=== PATIENT | male | born 1945 | race Caucasian/White ===

== ENCOUNTER 2016-07-29 14:02 | Emergency (ER) | payer MEDICARE, MEDICAID ==
[~2016-07-29] VITALS: Ht 175.3 cm; Wt 81.5 kg
[~2016-07-29 14:02] MED LIST: ALBU2.5V9 IH; AMOX1TAB10 PO; AZIT250T6 PO; DEXT15CA PO
[2016-07-29 14:06] VITALS: Ht 175.3 cm; Wt 81.5 kg
[2016-07-29] MEDS ORDERED: ACETAMINOPHEN 325 MG TAB PO ONE (15:00)
--- NOTE | 2016-07-29 15:57 | RADRPT ---
PROCEDURE: XR Knee. CLINICAL INDICATION: Right knee pain TECHNIQUE: 3 images of the right knee are available for review. COMPARISON: None available FINDINGS: There is tricompartmental osteoarthrosis, moderate to severe in the medial femorotibial compartment mild to moderate in the lateral and patellofemoral compartments with chondrocalcinosis. There are c hronic-appearing ossicles near the medial collateral ligament suggesting remote trauma. There is al so a moderate sized knee joint effusion. There is no definite radiographic evidence of acute osseou s abnormality. IMPRESSION: 1. No definite radiographic evidence of acute osseous abnormality. 2. Tricompartmental osteoarthrosis, moderate to severe and predominant within the medial femorotibia l compartment where there is some chronic bone remodelling. 3. Moderate sized knee joint effusion and chondrocalcinosis. RPTAT: UU .Jitendra Flores MD, Date Time Electronically viewed and signed by .Jitendra Flores MD, on 07/29/2016 15:56 .K/
--- NOTE | 2016-07-29 15:57 | RADRPT ---
PROCEDURE: XR Ankle. CLINICAL INDICATION: Right ankle pain TECHNIQUE: 3 views of the right ankle were performed. COMPARISON: None. FINDINGS: There is an acute nondisplaced obliquely oriented distal fibular fracture just above the level of th e mortise. There is moderate lateral soft tissue swelling. No definite medial malleolar or posterior malleolar fracture is identified. IMPRESSION: 1. Acute essentially nondisplaced obliquely oriented distal fibular fracture as above. 2. Moderate lateral soft tissue swelling. RPTAT: UU .Jitendra Flores MD, MD Date Time Electronically viewed and signed by .Jitendra Flores MD, on 07/29/2016 15:57 .K/
--- NOTE | 2016-07-29 16:01 | RADRPT ---
PROCEDURE: XR Lumbar Spine. CLINICAL INDICATION: Low back pain TECHNIQUE: 3 images of the lumbar spine were obtained. COMPARISON: No prior studies are available for comparison. FINDINGS: There are 5 non rib-bearing lumbar type vertebral bodies. There is mild straightening of the usual lumbar lordosis. The bones are osteopenic. There is no definite acute fracture. There is mild to moderate multilevel degenerative disk disease throughout the lumbar spine, most pro minent at L5-S1 where it appears moderate moderate to severe. There are anterior osteophytes throug hout. There are vascular calcifications. Limited assessment of the sacroiliac joints is grossly unremarkable. IMPRESSION: 1. No definite radiographic evidence of acute osseous abnormality noting osteopenia. 2. Multilevel degenerative disk disease as above, most prominent at the L5-S1 level. 3. Vascular calcifications. RPTAT: UU .Jitendra Flores MD, Date Time Electronically viewed and signed by .Jitendra Flores MD, on 07/29/2016 16:00 .Sarah/
--- NOTE | 2016-07-29 16:02 | RADRPT ---
PROCEDURE: XR Chest. CLINICAL INDICATION: Chest pain TECHNIQUE: Single view of the chest COMPARISON: Chest radiograph February 11, 2016 FINDINGS: There is pulmonary vascular congestion, with slightly more prominent left perihilar and lower lung o pacity. Cardiac silhouette is mildly enlarged. There is no pleural effusion. There is no pneumothorax. There is no acute osseous abnormality. IMPRESSION: 1. Pulmonary vascular congestion with slightly more prominent left perihilar and lower lobe opacity that could reflect superimposed pneumonia / pneumonitis. 2. Mildly enlarged cardiac silhouette. RPTAT: UU .Jitendra Flores MD, MD Date Time Electronically viewed and signed by .Jitendra Flores MD, on 07/29/2016 16:02 .K/
[2016-07-29] MEDS ORDERED: LEVO500T72 PO (16:38)
[2016-07-29] MEDS ORDERED: IBUP400T22 PO (16:38)
[2016-07-29] MEDS ORDERED: BENA20TA65 PO (16:59)
[2016-07-29 17:03] VITALS: BP 158/86; PULSE 65; RESP 18
--- NOTE | 2016-07-29 17:06 | ERD ---
ER Documentation Chief Complaint Date/Time DATE: 07/29/16 TIME: 17:01 Chief Complaint rt knee , rt nakle , low back pain s/p trip and fall today HPI 71.-year-old male tripped and fell today. He has complaints of low back pain, right knee pain and right ankle pain. Is also had cough which is productive for last 2 weeks. He is prescribed cough medicine but still has productive cough but denies fevers or shortness of breath or chest pain. There is no history of head injury or neck pain or loss of consciousness or additional symptoms. ROS All systems reviewed and are negative except as per history of present illness. Medications Home Meds Active Scripts Benazepril Hcl* (Lotensin*) 20 Mg Tablet, 20 MG PO DAILY, #30 TAB Prov:LYNN VAIL MD 07/29/16 Ibuprofen* (Motrin*) 400 Mg Tab, 400 MG PO Q6, #16 TAB Prov:LYNN VAIL MD 07/29/16 Levofloxacin* (Levaquin*) 500 Mg Tablet, 500 MG PO DAILY for 7 Days, TAB Prov:LYNN VAIL MD 07/29/16 Albuterol Sulfate (Albuterol Sulfate) 2.5 Mg/0.5 Ml Vial.neb, 2.5 MG IH Q4H Y for SHORTNESS OF BREATH, #1 VIAL Prov:BRANDON MCDONOUGH 02/13/16 Dextromethorphan Hbr (Tussin Cough) 15 Mg Capsule, 15 MG PO Q6H Y for COUGH, # 30 CAP Prov:BRANDON MCDONOUGH 02/13/16 Azithromycin* (Azithromycin*) 250 Mg Tablet, 250 MG PO DAILY, #4 TAB Prov:BRANDON MCDONOUGH 02/13/16 Amoxicillin/Potassium Clav (Amox-Clav 875-125 mg Tablet) 875-125 mg Tab, 1 TAB PO BID for 8 Days, #16 TAB Prov:BRANDON MCDONOUGH 02/13/16 Allergies Allergies: Coded Allergies: No Known Allergy (Unverified , 02/11/16) PMhx/Soc History of Surgery: Yes (inguinal hernia repair) Anesthesia Reaction: No Hx Neurological Disorder: No Hx Respiratory Disorders: No Hx Cardiac Disorders: Yes (HTN ) Hx Psychiatric Problems: No Hx Miscellaneous Medical Probl: Yes (HTN, high cholesterol, arthritis) Hx Alcohol Use: Yes (1-2 beers daily ) Hx Substance Use: No Hx Tobacco Use: No Physical Exam Vitals Vital Signs Date Time Temp Pulse Resp B/P Pulse Ox O2 Delivery O2 Flow Rate FiO2 07/29/16 14:06 97.8 66 18 172/80 98 Physical Exam Const: [] Alert, [id number]. Head: Atraumatic Eyes: Normal Conjunctiva ENT: Normal External Ears, Nose and Mouth. Neck: Full range of motion..~ No meningismus. No JVD. Resp: Clear to auscultation bilaterally. Slight rhonchi without rales wheezing or retractions appreciated. Cardio: Regular rate and rhythm, no murmurs Abd: Soft, non tender, non distended. Normal bowel sounds Skin: No petechiae or rashes Back: No midline or flank tenderness. Tender L4-5 paraspinous with muscles without appreciable tenderness or deformities. Ext: No cyanosis, or edema. There is some mild tenderness in the right knee with no effusion, deformities. There is some generalized tenderness around the right ankle with out significant swelling and no deformities or restricted range of motion weakness. Neur: Awake and alert Psych: Normal Mood and Affect Results 24 hrs Current Medications Medications (Trade) Dose Ordered Sig/Dawna Route PRN Reason Start Time Stop Time Status Last Admin Dose Admin Acetaminophen (Tylenol Tab) 650 mg ONCE ONCE PO 07/29/16 15:00 07/29/16 15:01 DC 07/29/16 15:02 Procedures/MDM X-ray right ankle 3V Interpreted by me: Bones: Nondisplaced distal fibula fracture Joints: No dislocation. Impression-nondisplaced right distal fibular fracture X-ray right knee 3V Interpreted by me: Bones: [No fracture] Joints: [No dislocation] Foreign body: [None]. Impression-degenerative changes without fracture dislocation right knee X-ray LS-Spine 3V Interpreted by me: Bones: [No fracture] Joints: [No dislocation] Foreign body: [None]. Impression-degenerative changes without fracture dislocation of lumbar spine Chest X-ray 1V Interpreted by me: Soft Tissue: No acute abnormalities Bones: No acute abnormalities Mediastinum/Cardiac Silhouette/Lungs: [No acute abnormalities]. Slight pulmonary vascular congestion with possible left lower lobe infiltrate Patient presents status post mechanical fall with signs of a right ankle nondisplaced fracture of the distal fibula. He has lumbar strain and right knee sprain as well. He has a productive cough for last 2 weeks with signs of possible underlying pneumonia. Given the duration will be treated with Levaquin , and ibuprofen for pain. Patient was referred to orthopedics for further evaluation of his ankle fracture. Patient does have some vascular congestion but no other signs or symptoms to suggest CHF at this point no JVD or pedal edema. He will referred to us primary doctor for evaluation and treatment and will be given a prescription for Lotensin for elevated blood pressure here in the ED. Patient has been treated for hypertension in the past but apparently is having some insurance difficulties has not been taking it. He has unsure of his previous medications. Patient is advised to follow-up for new or worsening symptoms with primary doctor as directed. Patient shows no signs or symptoms suggestive deficits, head injury, sepsis, acute coronary syndrome, additional emergent conditions. Departure Diagnosis: Primary Impression: Hypertension Additional Impressions: Pneumonia Pneumonia type: due to unspecified organism Laterality: left Lung location : lower lobe of lung Qualified Code: J18.9 - Pneumonia of left lower lobe due to infectious organism Fall Encounter type: initial encounter Qualified Code: W19.XXXA - Fall, initial encounter Ankle fracture Encounter type: initial encounter Fracture type: closed Laterality: right Qualified Code: S82.891A - Ankle fracture, right, closed, initial encounter Condition: Stable Patient Instructions: High Blood Pressure (Hypertension), Fracture, Ankle ( General), Fall, Mechanical, Pneumonia (Adult) Referrals: PASCALE LEWIS MD [facility] Hours: Sat-Sat 9:00 AM - 5:00 PM Additional Instructions: cheque con jarrett doctor primario para presion. jennifer fractura en tobillo. va al ortho pedico para mas evaluacion. regresa para fiebre, mas simptomas. Va al jarrett doctor/ specialista para mas evaluacon en el proximo semana. posiblemente necesita autorizado de jarrett doctor primario para specialista. Regresa para fiebre , o mas o nueva simptomas. LYNN VAIL MD Jul 29, 2016 17:05
== END 2016-07-29 17:05 | disposition home or self-care (01) ==
LOC: FTE 14:02
DX: I10 Essential (primary) hypertension (principal); J18.9 Pneumonia, unspecified organism; S82.891A Other fracture of right lower leg, initial encounter for closed fracture; W01.0XXA Fall on same level from slipping, tripping and stumbling without subsequent striking against object, initial encounter; Y92.9 Unspecified place or not applicable
CPT/HCPCS: 71010; 72100; 73562

== ENCOUNTER 2016-08-11 07:16 | Emergency (ER) | payer MEDICARE, MEDICAID ==
[~2016-08-11] VITALS: Ht 175.3 cm; Wt 81.0 kg
[~2016-08-11 07:16] MED LIST changes: +BENA20TA65 PO; +IBUP400T22 PO; +LEVO500T72 PO
[2016-08-11 07:18] VITALS: Ht 175.3 cm; Wt 81.0 kg
[2016-08-11] MEDS ORDERED: IBUP800T25 PO (07:46)
[2016-08-11] MEDS ORDERED: SOD CHLORIDE 0.9% 1,000 ML IV STA (08:01)
[2016-08-11] MEDS ORDERED: CLINDAMYCIN 300 MG INJ IV ONE (08:30)
[2016-08-11] MEDS: CLINDAMYCIN 600 MG/D5W (PMX) 50 ML IVPB SCH ×2 (08:41→09:26)
[2016-08-11 08:53] LABS: ADD SCAN DIFF NO
[2016-08-11 09:09] LABS: ALBUMIN 3.6 g/dl (3.3-4.9); BASOPHILS % 0.1 % (0.0-2.0); HEMATOCRIT 42.2 % (42.0-52.0); HEMOGLOBIN 14.4 g/dl (14.0-18.0); LYMPHOCYTES # 0.7 10^3/ul (0.8-2.9); LYMPHOCYTES % 6.9 % (15.0-51.0); MEAN CORPUSCULAR HEMOGLOBIN 28.3 pg (29.0-33.0); MEAN CORPUSCULAR HGB CONC 34.1 g/dl (32.0-37.0); MEAN CORPUSCULAR VOLUME 83.1 fl (82.0-101.0); MEAN PLATELET VOLUME 10.7 fl (7.4-10.4); MONOCYTE # 0.5 10^3/ul (0.3-0.9); MONOCYTES % 5.1 % (0.0-11.0); NEUTROPHIL # 9.1 10^3/ul (1.6-7.5); NEUTROPHILS % 86.9 % (39.0-77.0); PLATELET COUNT 159 10^3/UL (140-415); RED BLOOD COUNT 5.08 10^6/ul (4.70-6.10); RED CELL DISTRIBUTION WIDTH 17.1 % (11.5-14.5); WHITE BLOOD COUNT 10.5 10^3/ul (4.8-10.8)
[2016-08-11 09:10] LABS: POTASSIUM 4.1 mmol/L (3.5-5.1)
[2016-08-11 09:12] LABS: ALBUMIN/GLOBULIN RATIO 1.02; BILIRUBIN,INDIRECT 0.2 mg/dl (0-1.1); BILIRUBIN,TOTAL 0.2 mg/dl (0.2-1.3); CREATININE 0.73 mg/dl (0.61-1.24); TOTAL PROTEIN 7.1 g/dl (6.1-8.1)
[2016-08-11] MEDS ORDERED: IOHEXOL 300MG/ML 150 ML BTL ONE (09:17)
[2016-08-11] MEDS ORDERED: SOD CHLORIDE 0.9% 100 ML ONE (09:18)
[2016-08-11 09:19] LABS: ADD UMIC NO; URINE BILIRUBIN (Dip) NEGATIVE (NEGATIVE); URINE BLOOD (Dip) NEGATIVE (NEGATIVE); URINE COLOR LT. YELLOW (YELLOW); URINE GLUCOSE (Dip) NEGATIVE (NEGATIVE); URINE KETONES (Dip) NEGATIVE (NEGATIVE); URINE LEUKOCYTE ESTERASE (Dip) NEGATIVE (NEGATIVE); URINE NITRITE (Dip) NEGATIVE (NEGATIVE); URINE TOTAL PROTEIN (Dip) NEGATIVE (NEGATIVE); URINE UROBILINOGEN (Dip) 0.2 E.U./dL (0.1-1.0)
--- NOTE | 2016-08-11 10:29 | RADRPT ---
PROCEDURE: XR Ankle. CLINICAL INDICATION: Right ankle pain TECHNIQUE: Three views of the right ankle are available for review. COMPARISON: 07/29/2016 FINDINGS: There is a nondisplaced oblique fracture through the distal fibula. The remainder of the osseous st ructures, articular spaces, and surrounding soft tissues of the right ankle are intact. No radiopaqu e foreign body is identified. IMPRESSION: 1. Nondisplaced oblique fracture through the distal fibula. 2. No new fracture or dislocation. RPTAT: EE .Tracy Marino MD, MD Date Time Electronically viewed and signed by .Tracy Marino MD, on 08/11/2016 10:29 .O/
--- NOTE | 2016-08-11 10:33 | RADRPT ---
PROCEDURE: Right foot series CLINICAL INDICATION: Pain TECHNIQUE: Three views. COMPARISON: None FINDINGS: No fractures are noted. The soft tissues are unremarkable. There is mild hallux valgus deformity.. Joint spaces are well maintained. No erosions are noted. Partially imaged distal fibular fracture is present. IMPRESSION: 1. No acute fracture or dislocation. 2. Mild hallux valgus deformity. RPTAT: EE .Tracy Marino MD, MD Date Time Electronically viewed and signed by .Tracy Marino MD, on 08/11/2016 10:32 .O/
--- NOTE | 2016-08-11 11:11 | RADRPT ---
PROCEDURE: CT scan of the face with contrast. CLINICAL INDICATION: swelling to left cheek. r/o abscess TECHNIQUE: CT scan of the face following intravenous administration of 80 ml Omnipaque-300 was pe rformed on a multidetector high-resolution CT scan. Standard CT scan of the face with contrast pro tocols were performed. The total exam CTDI equals 54 mGy and the total exam DLP equals 1218.44 mGy-cm. One or more of the following dose reduction techniques were used: - Automated exposure control. - Adjustment of the mA and/or kV according to patient size. Use of iterative reconstruction technique. COMPARISON: None FINDINGS: The left parotid and submandibular glands are diffusely enlarged with diffuse mild enhancement but n o focal lesion consistent with parotiditis and submandibularitis. There is mild edema surrounding the left submandibular gland and left parotid gland especially along the inferior aspect left paroti d gland as well as since extending into the subcutaneous region along the lateral posterior left low er face at the level of the left mandibular angle consistent with reactive inflammatory changes and cellulitis. A discrete abscess is not seen. No evidence of lymphadenopathy. The nasopharynx, oroph arynx and hypopharynx appear unremarkable. Those portions of the airway visualized are unremarkable . The right submandibular gland and parotid gland are unremarkable. There is no other soft tissue flu id collections or gas seen. Defect involving the medial left maxillary sinus wall consistent with a ntral window. There is chronic bilateral maxillary and ethmoid sinus disease. The frontal and ethm oid and sphenoid sinuses are unremarkable. There is no acute sinusitis. There are no facial fractu res. The globes are symmetrical without proptosis. No intra or extraconal fluid collections or mass es bilaterally. IMPRESSION: 1. Diffusely enlarged left parotid and submandibular glands with diffuse enhancement but no focal l esions consistent with parotiditis and submandibularitis. 2. Soft tissue edema adjacent to the left submandibular and parotid glands as described above consi stent with reactive inflammatory changes and cellulitis. 3. No evidence of a discrete abscess. 4. Left maxillary sinus antral window and chronic sinusitis involving the ethmoid and maxillary sin uses as above. No evidence of acute sinusitis. 5. Unremarkable orbits. RPTAT:AAJJ Kelly Lewis Physician Date Time Electronically viewed and signed by Kelly Lewis Physician on 08/11/2016 11:10 BM/
[2016-08-11] MEDS ORDERED: HYDR-906 PO (11:23)
[2016-08-11] MEDS ORDERED: AMOX1TAB10 PO (11:23)
[2016-08-11 11:46] VITALS: BP 195/84; PULSE 60; RESP 18; TEMP 98
--- NOTE | 2016-08-11 14:54 | ERD ---
DATE OF SERVICE: 08/11/2016 HISTORY OF PRESENT ILLNESS: The patient is a 71-year-old male coming in complaining of swelling to his left face x2 days. He says he has had tactile fevers, had a mild cough. Denies dental pain, we ars dentures. Denies medical problems. He is not taking antibiotics. He has no trouble swallowing or breathing. He is also complaining of right-sided ankle pain. He fell 8 days ago and is unsure if he has a fracture. He has pain with ambulation. No numbness or tingling. PAST MEDICAL HISTORY: Hypertension. ALLERGIES TO MEDICATIONS: DENIES. PAST SURGICAL HISTORY: Denies. SOCIAL HISTORY: Denies. REVIEW OF SYSTEMS: A 12-point review of systems was done. Refer to HPI for positives, all other sy stems negative. PHYSICAL EXAMINATION: VITAL SIGNS: Temperature is 99.6, pulse 95, blood pressure is 172/80, respiratory rate 18, O2 satur ation 96% on room air. Pain intensity is 6/10. GENERAL: The patient is well-appearing, well-nourished, no acute distress. HEENT: The patient has swelling noted to the left submandibular region. There is no compromise in the airway. No dental pain. Oropharynx clear. Uvula midline. No posterior oropharynx fullness. CHEST: Clear to auscultation bilaterally. There are no rales, wheezes or rhonchi. HEART: Regular rate and rhythm. No murmurs, clicks, rubs or gallops. No S3 or S4. EXTREMITIES: The patient has tenderness to palpation over the right lateral malleolus. No obvious deformities. Mild ecchymosis. No tenderness to palpation over the base of fifth metatarsal. The p atient has normal flexion and extension at the ankle. No syndesmotic pain. No pain to the right kn ee. Pulses are intact. Compartments are soft. The patient is neurovascularly intact. EMERGENCY ROOM COURSE: The patient had an x-ray done of the right ankle, 3-view x-ray shows a nondi splaced oblique fracture through the distal fibula. No new fracture or dislocation. The patient al so had a 3-view x-ray done of the right foot which showed no acute fracture or dislocation. Mild moss llux valgus deformity. The patient had blood work done in the ER. CBC was within normal limits. C MP was within normal limits. The patient's urine was negative. The patient had a facial CT which showed: 1. Diffusely enlarged left parotid and submandibular gland with diffuse enhancement but no focal le sions, consistent with parotiditis and submandibularitis. 2. Soft tissue edema adjacent to the left submandibular and parotid glands as described above, cons istent with reactive changes and cellulitis. 3. No evidence of discrete abscess. 4. Left maxillary sinus window, chronic sinusitis involving the ethmoid and maxillary sinuses , no evidence of acute sinusitis. 5. Unremarkable orbits. The patient was given a liter of normal saline and 600 mg of IV clindamycin in the ER. The patient also had a posterior ankle and sugar-tong splint done in the ER with crutches. DIAGNOSES: 1. Left facial cellulitis. 2. Right ankle fracture. MEDICAL DECISION MAKING: I have low suspicion for deep abscess formation or indication for surgical drainage at this time. The patient will be discharged with antibiotics and close followup. I have low suspicion for airway compromise. The patient does not have any signs of stridor or airway narr owing secondary to infection. I have low suspicion for compartment syndrome or neurovascular defici t secondary to fracture. The patient's exam is within normal limits. The patient will be recommend ed to nonweightbearing. DISCHARGE: The patient is discharged stable. The patient is given a prescription for Augmentin, ib uprofen and Leroy and told to follow up with ortho and primary within 1 to 2 days for close evaluati on. The patient was told if symptoms progress or worsen, to return to the ER. All other questions answered at the time of discharge. Discharge summary given at the time of departure. The patient u nderstood and complied with plan. Dictated By: SULY SALGUERO for CURTIS DUQUE/DONYA Conf#: [id number] DID#: [id number]
== END 2016-08-11 11:48 | disposition home or self-care (01) ==
LOC: FTE 07:16
DX: L03.211 Cellulitis of face (principal); S82.434A Nondisplaced oblique fracture of shaft of right fibula, initial encounter for closed fracture; I10 Essential (primary) hypertension; W18.39XA Other fall on same level, initial encounter; Y92.9 Unspecified place or not applicable
CPT/HCPCS: 29515; 36415; 70486; 73610; 73630; 80053; 81003; 83690; 85025; 96374; 99285; J7030; Q9967

== ENCOUNTER 2016-08-28 08:54 | Inpatient (IN) | payer MEDICARE, MEDICAID ==
[2016-08-28] VITALS (10 sets, daily range): BP systolic 137–199; BP diastolic 79–95; PULSE 103–130; RESP 19–24
[~2016-08-28] VITALS: Ht 162.6 cm; Wt 75.5 kg
[~2016-08-28 08:54] MED LIST changes: -ALBU2.5V9 IH; +HYDR-906 PO; +IBUP800T25 PO; +RTPRO5 IH
[2016-08-28] MEDS ORDERED: CEFEPIME 2GM/50 ML (PMX) 50 ML IVPB STA (09:08)
[2016-08-28] MEDS ORDERED: SODIUM CHLORIDE 0.9% 1L BAG IV* STA (09:08)
[2016-08-28] MEDS ORDERED: ALBUTEROL 0.083% (NEB) 2.5 MG/3 ML AMP HHN STA (09:08)
[2016-08-28] MEDS ORDERED: IPRATROPIUM (NEB) 0.5 MG/2.5 ML AMP HHN ONE (09:30)
[2016-08-28] MEDS ORDERED: VANCOMYCIN 1 GM (PMX) 250 ML IVPB ONE (09:30)
[2016-08-28] MEDS ORDERED: ACETAMINOPHEN 325 MG TAB PO PRN (09:30)
[2016-08-28] MEDS ORDERED: ONDANSETRON 4 MG INJ IV PRN (09:30)
[2016-08-28 09:49] LABS: ADD SCAN DIFF NO
[2016-08-28 09:56] LABS: BASOPHILS % 0.5 % (0.0-2.0); EOSINOPHILS # 0.1 10^3/ul (0.0-0.5); EOSINOPHILS % 1.3 % (0.0-7.0); HEMATOCRIT 45.8 % (42.0-52.0); HEMOGLOBIN 15.6 g/dl (14.0-18.0); LYMPHOCYTES % 16.6 % (15.0-51.0); MEAN CORPUSCULAR HEMOGLOBIN 28.3 pg (29.0-33.0); MEAN CORPUSCULAR HGB CONC 34.1 g/dl (32.0-37.0); MEAN PLATELET VOLUME 9.3 fl (7.4-10.4); MONOCYTE # 0.4 10^3/ul (0.3-0.9); MONOCYTES % 6.3 % (0.0-11.0); NEUTROPHIL # 4.5 10^3/ul (1.6-7.5); NEUTROPHILS % 74.8 % (39.0-77.0); PLATELET COUNT 192 10^3/UL (140-415); RED BLOOD COUNT 5.52 10^6/ul (4.70-6.10); RED CELL DISTRIBUTION WIDTH 16.5 % (11.5-14.5)
[2016-08-28 10:02] LABS: ALBUMIN 3.9 g/dl (3.3-4.9); CHLORIDE 95 mmol/L (97-110); SODIUM 133 mmol/L (135-144)
[2016-08-28 10:03] LABS: POTASSIUM 3.9 mmol/L (3.5-5.1)
[2016-08-28 10:05] LABS: ALANINE AMINOTRANSFERASE 97 IU/L (13-69); ALBUMIN/GLOBULIN RATIO 0.88; ALKALINE PHOSPHATASE 259 IU/L (42-121); ANION GAP 15 (8-16); ASPARTATE AMINO TRANSFERASE 85 IU/L (15-46); BILIRUBIN,INDIRECT 0.6 mg/dl (0-1.1); BILIRUBIN,TOTAL 0.6 mg/dl (0.2-1.3); BLOOD UREA NITROGEN 21 mg/dl (7-20); CARBON DIOXIDE 27 mmol/L (21-31); CREATININE 0.94 mg/dl (0.61-1.24); GLUCOSE 130 mg/dl (70-220); TOTAL PROTEIN 8.3 g/dl (6.1-8.1)
[2016-08-28 10:07] LABS: INR 1.03; PROTIME 13.5 Sec (12.2-14.2); PT RATIO 1.1
[2016-08-28 10:08] LABS: PARTIAL THROMBOPLASTIN TIME 36.7 Sec (25.0-35.0)
--- NOTE | 2016-08-28 10:15 | RADRPT ---
PROCEDURE: XR Chest AP portable CLINICAL INDICATION: Possible sepsis TECHNIQUE: An AP portable radiograph of the chest was submitted. COMPARISON: 07/29/2016 FINDINGS: Support Hardware: None Cardiovascular: The heart remains mildly enlarged and the pulmonary vasculature appears more congest ed. Lung Singletary: Worsening interstitial infiltrates are seen diffusely through the lung singletary bilateral ly. Pleural Spaces: No pneumothorax or pleural effusion is identified. Osseous Structures: Moderate degenerative spine changes are again noted. Soft Tissues: Elongated organized air distended small bowel is seen within the right upper quadrant of the abdomen. IMPRESSION: 1. Mild cardiomegaly with worsening CHF and pulmonary edema. 2. Possible bowel obstruction. Correlation with an abdominal film is recommended. 3. Moderate osteoarthritic change seen through the spine. Physician Rob Date Time Electronically viewed and signed by Physician Rob on 08/28/2016 10:14 /
[2016-08-28 10:18] LABS: TROPONIN-I < 0.010 ng/ml (0.00-0.12)
[2016-08-28 10:24] LABS: ADD UMIC YES; URINE BILIRUBIN (Dip) 1+ (NEGATIVE); URINE BLOOD (Dip) NEGATIVE (NEGATIVE); URINE COLOR ORANGE (YELLOW); URINE GLUCOSE (Dip) NEGATIVE (NEGATIVE); URINE KETONES (Dip) TRACE (NEGATIVE); URINE LEUKOCYTE ESTERASE (Dip) NEGATIVE (NEGATIVE); URINE NITRITE (Dip) NEGATIVE (NEGATIVE); URINE TOTAL PROTEIN (Dip) 1+ (NEGATIVE); URINE UROBILINOGEN (Dip) 1.0 E.U./dL (0.1-1.0)
--- NOTE | 2016-08-28 10:27 | ERA ---
ER Documentation Chief Complaint Date/Time DATE: 08/28/16 TIME: 10:24 Chief Complaint feels weak, cough, moss, poor apetite x 3 days HPI Patient is a 8-year-old male with diabetes and previous pneumonia presents saying "I feel bad". Patient has cough and shortness of breath. The patient has had decreased intake by mouth over the past few days. He feels weak. He said the symptoms have been there for the past 3 days. He said that "I think I have bronchitis". He does say that he had fever at home. Upon review of old medical records the patient has multiple visits to the ER for various complaints. His primary doctor is Dr. Austin. ROS All systems reviewed and are negative except as per history of present illness. Medications Home Meds Discontinued Scripts Hydrocodone/Acetaminophen ([place] 5-325 Tablet) 1 Each Tablet, 1 TAB PO Q6H Y for PAIN, #7 TAB Prov:LOVE JACK PA-C 08/11/16 Amoxicillin/Potassium Clav (Amox-Clav 875-125 mg Tablet) 875-125 mg Tab, 1 TAB PO BID for 7 Days, #14 TAB Prov:LOVE JACK PA-C 08/11/16 Ibuprofen* (Motrin*) 800 Mg Tab, 800 MG PO Q6, #30 TAB Prov:LOVE JACK PA-C 08/11/16 Benazepril Hcl* (Lotensin*) 20 Mg Tablet, 20 MG PO DAILY, #30 TAB Prov:LYNN VAIL MD 07/29/16 Ibuprofen* (Motrin*) 400 Mg Tab, 400 MG PO Q6, #16 TAB Prov:LYNN VAIL MD 07/29/16 Levofloxacin* (Levaquin*) 500 Mg Tablet, 500 MG PO DAILY for 7 Days, TAB Prov:LYNN VAIL MD 07/29/16 Albuterol Sulfate (Albuterol Sulfate) 2.5 Mg/0.5 Ml Vial.neb, 2.5 MG IH Q4H Y for SHORTNESS OF BREATH, #1 VIAL Prov:BRANDON MCDONOUGH 02/13/16 Dextromethorphan Hbr (Tussin Cough) 15 Mg Capsule, 15 MG PO Q6H Y for COUGH, # 30 CAP Prov:BRANDON MCDONOUGH. 02/13/16 Azithromycin* (Azithromycin*) 250 Mg Tablet, 250 MG PO DAILY, #4 TAB Prov:BRANDON MCDONOUGH. 02/13/16 Amoxicillin/Potassium Clav (Amox-Clav 875-125 mg Tablet) 875-125 mg Tab, 1 TAB PO BID for 8 Days, #16 TAB Prov:BRANDON MCDONOUGH. 02/13/16 Allergies Allergies: Coded Allergies: No Known Allergy (Unverified , 08/28/16) PMhx/Soc History of Surgery: Yes (inguinal hernia repair) Anesthesia Reaction: No Hx Neurological Disorder: No Hx Respiratory Disorders: No Hx Cardiac Disorders: Yes (HTN ) Hx Psychiatric Problems: No Hx Miscellaneous Medical Probl: Yes (HTN, high cholesterol, arthritis) Hx Alcohol Use: Yes (1-2 beers daily ) Hx Substance Use: No Hx Tobacco Use: No Smoking Status: Never smoker FmHx Family History: diabetes Physical Exam Vitals Vital Signs Date Time Temp Pulse Resp B/P Pulse Ox O2 Delivery O2 Flow Rate FiO2 08/28/16 09:36 102 20 95 Nasal Cannula 2.0 08/28/16 09:30 Nasal Cannula 2 08/28/16 08:59 98.1 114 24 137/76 87 Physical Exam Const: Mild distress Head: Atraumatic Eyes: Normal Conjunctiva ENT: Normal External Ears, Nose and Mouth. Neck: Full range of motion..~ No meningismus. Resp: Decreased breath sounds bilaterally with crackles at the bases Cardio: Tachycardic rate without murmur Abd: Soft, non tender, non distended. Normal bowel sounds Skin: No petechiae or rashes Back: No midline or flank tenderness Ext: No cyanosis, or edema Neur: Awake and alert Psych: Normal Mood and Affect Result Diagram: 08/28/1630 08/28/1630 Results 24 hrs Laboratory Tests Test 08/28/16 09:30 White Blood Count 6.010^3/ul Red Blood Count 5.5210^6/ul Hemoglobin 15.6g/dl Hematocrit 45.8% Mean Corpuscular Volume 83.0fl Mean Corpuscular Hemoglobin 28.3pg Mean Corpuscular Hemoglobin Concent 34.1g/dl Red Cell Distribution Width 16.5% Platelet Count 86971^3/UL Mean Platelet Volume 9.3fl Neutrophils % 74.8% Lymphocytes % 16.6% Monocytes % 6.3% Eosinophils % 1.3% Basophils % 0.5% Nucleated Red Blood Cells % 0.0/100WBC Neutrophils # 4.510^3/ul Lymphocytes # 1.010^3/ul Monocytes # 0.410^3/ul Eosinophils # 0.110^3/ul Basophils # 0.010^3/ul Nucleated Red Blood Cells # 0.010^3/ul Prothrombin Time 13.5Sec Prothrombin Time Ratio 1.1 INR International Normalized Ratio 1.03 Activated Partial Thromboplast Time 36.7Sec Sodium Level 133mmol/L Potassium Level 3.9mmol/L Chloride Level 95mmol/L Carbon Dioxide Level 27mmol/L Anion Gap 15 Blood Urea Nitrogen 21mg/dl Creatinine 0.94mg/dl Glucose Level 130mg/dl Lactic Acid Level 2.3mmol/L Calcium Level 9.0mg/dl Total Bilirubin 0.6mg/dl Direct Bilirubin 0.00mg/dl Indirect Bilirubin 0.6mg/dl Aspartate Amino Transf (AST/SGOT) 85IU/L Alanine Aminotransferase (ALT/SGPT) 97IU/L Alkaline Phosphatase 259IU/L Troponin I < 0.010ng/ml Total Protein 8.3g/dl Albumin 3.9g/dl Globulin 4.40g/dl Albumin/Globulin Ratio 0.88 Current Medications Medications (Trade) Dose Ordered Sig/Dawna Route PRN Reason Start Time Stop Time Status Last Admin Dose Admin Sodium Chloride 2340 ml 2,340 ml BOLUS OVER 2 HOURS STAT IV* 08/28/16 09:08 08/28/16 09:10 DC 08/28/16 09:55 Cefepime HCl 50 ml @ 100 mls/hr ONCE STAT IVPB 08/28/16 09:08 08/28/16 09:37 DC 08/28/16 09:55 Vancomycin HCl (Vancocin) 250 ml @ 125 mls/hr ONCE ONCE IVPB 08/28/16 09:30 08/28/16 11:29 Albuterol (Proventil 0.083% (Neb)) 5 mg ONCE STAT HHN 08/28/16 09:08 08/28/16 09:10 DC 08/28/16 09:33 Ipratropium [place] (Atrovent 0.02% (Neb)) 0.5 mg ONCE ONCE HHN 08/28/16 09:30 08/28/16 09:31 DC 08/28/16 09:33 Ondansetron HCl (Zofran Inj) 4 mg BRIDGE ORDER PRN IV NAUSEA AND/OR VOMITING 08/28/16 09:30 08/29/16 09:29 Acetaminophen (Tylenol Tab) 650 mg ER BRIDGE PRN PO MILD PAIN/FEVER 08/28/16 09:30 08/29/16 09:29 Procedures/MDM EKG read by me: Rate/Rhythm: Sinus tachycardia at a rate of 104 Intervals: Normal Impression: Sinus tachycardia without evidence of ischemia PROCEDURE: XR Chest AP portable CLINICAL INDICATION: Possible sepsis TECHNIQUE: An AP portable radiograph of the chest was submitted. COMPARISON: 07/29/2016 FINDINGS: Support Hardware: None Cardiovascular: The heart remains mildly enlarged and the pulmonary vasculature appears more congested. Lung Begum: Worsening interstitial infiltrates are seen diffusely through the lung begum bilaterally. Pleural Spaces: No pneumothorax or pleural effusion is identified. Osseous Structures: Moderate degenerative spine changes are again noted. Soft Tissues: Elongated organized air distended small bowel is seen within the right upper quadrant of the abdomen. IMPRESSION: 1. Mild cardiomegaly with worsening CHF and pulmonary edema. 2. Possible bowel obstruction. Correlation with an abdominal film is recommended. 3. Moderate osteoarthritic change seen through the spine. Physician Rob Date Time Electronically viewed and signed by Physician Rob on 08/28/2016 10:14 Admit MDM: Patient's infectious symptoms have not stabilized and the patient is at risk of rapid decompensation. The patient will be admitted for careful hydration, antibiotic therapy, and infectious source control. Severe Sepsis criteria: Infectious source: Bronchitis End organ damage indicated by: Lactate greater than 2 Sepsis Management: Time of recognition of sepsis: 09:30 Within 3 hours of recognition: Blood cultures x 2 before broad-spectrum antibiotics: yes 30 ml/kg NS bolus Completed Initial lactate 2.3 Repeat lactate pending Time of recognition of septic shock: No septic shock Septic Shock Assessment: Any lactic acid > 4.0 No Persistent hypotension (SBP < 90 or 40 mmHg drop, MAP < 65) despite 30 mL/kg IV fluid bolus No Volume Re-assessment for Septic Shock (post 30 ml/kg bolus): No septic shock at this time Persistent Hypotension Treatment: Comfort care No Central line Not Required Vasopressor started Not required I considered further perfusion assessment with CVP measurement, SCVO2, bedside ultrasound volume assessment, passive leg raise, trial of further fluid bolus. And proceeded with 30 ml/kg fluid bolus of NSS, broad spectrum antibiotics, and admission. Accepting Care Team Current data and ongoing care discussed. Admitting Physician: Dr. Austin the patient's primary doctor Marketing Communications Manager(s): None Outstanding Data: Culture results and repeat lactic acid Critical Care: Critical care time 35 minutes excluding all billable procedures Emergent fluid management while maintaining close respiratory support. Provision of immediate and broad-spectrum antibiotic therapy. Simultaneous assessment for possible sources in order to direct targeted therapy. Consideration for invasive and chemical support to prevent cardiopulmonary collapse. Departure Diagnosis: Primary Impression: Severe sepsis Additional Impressions: Cough Pneumonia Qualified Code: J18.9 - Pneumonia due to infectious organism, unspecified laterality, unspecified part of lung Bronchitis Condition: RENA Cordero MD Aug 28, 2016 10:27
[2016-08-28 11:38] LABS: BACTERIA,URINE FEW; ICTOTEST NEGATIVE (NEGATIVE); MUCUS,URINE MODERATE; URINE RBCS NONE SEEN /HPF (0)
--- NOTE | 2016-08-28 12:42 | RADRPT ---
PROCEDURE: XR Abdomen. CLINICAL INDICATION: Abdomen pain. TECHNIQUE: AP supine abdomen x-ray. COMPARISON: None. FINDINGS: There is extensive patchy air space and interstitial disease at both lung bases. The bowel gas pattern is normal with no evidence of obstruction. Gas is present in nondilated small bowel and colon. There are no abnormal calcifications overlying the urinary tracts. There are degenerative changes of the spine. IMPRESSION: 1. Extensive pulmonary disease. Correlation with chest radiograph advised. 2. No evidence of bowel obstruction. 3. Degenerative changes of the spine. RPTAT: QQ .Nathan Tom MD, MD Date Time Electronically viewed and signed by .Nathan Tom MD, MD on 08/28/2016 12:02 .R/
--- NOTE | 2016-08-28 13:26 | HP ---
DATE OF ADMISSION: 08/28/2016 CHIEF COMPLAINT: Fever, productive cough and nausea over the last couple of days. HISTORY OF PRESENT ILLNESS: The patient is a 71-year-old gentleman who developed productiv e cough with yellow sputum over the last couple of days with fever and nausea. The patient denies a ny diarrhea. Denies any shortness of breath, denies any chest pain. In evaluation in the emergency room, patient was diagnosed with pneumonia and was started on broad spectrum antibiotics and jah t was admitted for further evaluation and management to the medical/surgical floor. PAST MEDICAL HISTORY: Patient denies any past medical history. PAST SURGICAL HISTORY: Patient denies any past surgical history. SOCIAL HISTORY: Patient lives at home with his family. The patient's is actually at the [facility], provided some of the history. The patient denies any tobacco use, denies any illicit drug use. The patient drinks alcohol, usually a couple of beers every day; however, unable to drink for the l ast couple of days. 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 ALLERGIES: NO KNOWN ALLERGIES. MEDICATIONS ON ADMISSION: Unknown. REVIEW OF SYSTEMS: A 12-point review of systems is negative unless what mentioned in the HPI. PHYSICAL ASSESSMENT: GENERAL: Well-developed, well-nourished gentleman currently is awake, alert, slightly diaphoretic. HEENT: Head is atraumatic, normocephalic. Pupils equal, round, reactive to light and accommodation . Oral mucosa is pink and moist. NECK: Supple, no cervical lymphadenopathy, no thyromegaly. CHEST: Slightly diminished at the bases. There is no rhonchi, wheezes, rales noted. CARDIOVASCULAR: Normal S1, S2. No murmurs, clicks, rubs noted. ABDOMEN: Round, soft, nondistended. Patient has right upper quadrant tenderness. EXTREMITIES: There is no edema, clubbing, cyanosis. Pulses equal bilaterally 2+. SKIN: There is no rash, petechiae noted. NEUROLOGIC: The patient is awake, alert and oriented x4. No focal deficits noted. Motor strength 5/5 in all extremities. LABORATORY DATA: Unable to provide due to computers currently down. ASSESSMENT AND PLAN: 1. Community-acquired pneumonia. Continue patient on antibiotics, admit the patient to medical/christelle gical floor. Continue oxygen supplementation and bronchodilators. 2. Abdominal pain with nausea. Will obtain CT of the abdomen for evaluation of the patient's abdom inal pain, keep the patient n.p.o. Continue IV fluids, continue Zofran p.r.n. for nausea and morphi ne p.r.n. for pain. Will continue sequential compression device for deep venous thrombosis prophyla xis and Protonix for peptic ulcer disease prophylaxis. Further recommendations based on clinical co urse. Plan of care discussed with Dr. Austin. Dictated By: MARIO LAND CORPORATE SALES REPRESENTATIVE for MATTHEW AUSTIN MD SR/NTS Conf#: [id number] DID#: [id number]
[2016-08-28] MEDS ORDERED: FUROSEMIDE 20 MG INJ ONE (15:43)
--- NOTE | 2016-08-28 15:57 | CONS ---
Date/Time of Note Date/Time of Note DATE: 08/28/16 TIME: 15:53 Assessment/Plan Assessment/Plan Additional Assessment/Plan X-ray was reviewed from yesterday which is showing pulmonary edema possibly superimposed pneumonia. Assessment recommendations; next 1. Patient admitted for what appears to be pneumonia however the findings are quite consistent with congestive heart failure with acute diastolic decompensation causing flash pulmonary edema. 2. Hypertension. Start the patient on BiPAP. Increase Lasix 40 mg IV daily. Continue current antibiotics. Will obtain a follow-up chest x-ray tomorrow morning. Patient at this point likely would not need to be intubated. Obtain echocardiogram. As well as a BNP level. Consultation Date/Type/Reason Admit Date/Time Aug 28, 2016 at 09:31 Date of Consultation: Aug 28, 2016 Type of Consultation: Pulmonary Reason for Consultation Pulmonary consultation requested for evaluation of acute onset of shortness of breath. History presenting; patient is a 71-year-old male who was admitted today after coming to the ER with complaints of shortness of breath and coughing going on for the last 2 days. Upon evaluation chest x-ray was done which has been interpreted as showing bilateral pneumonia the patient has been admitted to medical floor started on broad-spectrum antibiotic coverage however short while ago rapid response was called in overhead the patient became acutely dyspneic and short of breath his blood pressure was quite elevated the patient has been given Lasix and put on 100% nonrebreather mask with significant improvement in symptoms. He denies any chest pain, wheezing, sputum production. Past medical history; is essentially unremarkable. Medications; were reviewed. Allergies; are none. Social history; patient does not smoke Family history; patient is has a supportive . Occupational history; noncontributory. Review of systems; denies any chest pain, any fever chills, any abdominal pain, nausea, vomiting. Shortness of breath is improving. Denies any hemoptysis. Exam; elderly male, in mild distress. Anxious. Social History Smoking Status: Never smoker Exam/Review of Systems Vital Signs Vitals Vital Signs Date Time Temp Pulse Resp B/P Pulse Ox O2 Delivery O2 Flow Rate FiO2 08/28/16 11:54 100 24 151/82 100 Nasal Cannula 4.0 08/28/16 08:59 98.1 Exam HEENT examination: Supple neck, positive JVD. No lymphadenopathy. Midline trachea. Pharynx is clear. Pupils patient has fair dentition. Pupils are midsize and reactive to light. No thyromegaly. No neck bruits. Chest examination PA: Bilateral crackles. S1-S2 audible, no murmurs. Regular rhythm. Abdomen examination; soft, nondistended. Bowel sounds audible. No organomegaly. Extremity exam is; no peripheral edema. Pulses 1+ bilaterally. NATURAL RESOURCES MANAGER exam is; cranial nerves are grossly intact there is no motor deficit. Results Result Diagram: 08/28/16 0930 08/28/16 0930 Results 24 hrs Laboratory Tests Test 08/28/16 09:30 08/28/16 09:45 08/28/16 11:15 08/28/16 14:35 White Blood Count 6.0 # Red Blood Count 5.52 Hemoglobin 15.6 Hematocrit 45.8 Mean Corpuscular Volume 83.0 Mean Corpuscular Hemoglobin 28.3 L Mean Corpuscular Hemoglobin Concent 34.1 Red Cell Distribution Width 16.5 H Platelet Count 192 # Mean Platelet Volume 9.3 Neutrophils % 74.8 Lymphocytes % 16.6 Monocytes % 6.3 Eosinophils % 1.3 Basophils % 0.5 Nucleated Red Blood Cells % 0.0 Neutrophils # 4.5 Lymphocytes # 1.0 Monocytes # 0.4 Eosinophils # 0.1 Basophils # 0.0 Nucleated Red Blood Cells # 0.0 Prothrombin Time 13.5 Prothrombin Time Ratio 1.1 INR International Normalized Ratio 1.03 Activated Partial Thromboplast Time 36.7 H Sodium Level 133 L Potassium Level 3.9 Chloride Level 95 L Carbon Dioxide Level 27 Anion Gap 15 Blood Urea Nitrogen 21 H Creatinine 0.94 Glucose Level 130 Lactic Acid Level 2.3 H 2.4 H 1.9 Calcium Level 9.0 Total Bilirubin 0.6 Direct Bilirubin 0.00 Indirect Bilirubin 0.6 Aspartate Amino Transf (AST/SGOT) 85 H Alanine Aminotransferase (ALT/SGPT) 97 H Alkaline Phosphatase 259 H Troponin I < 0.010 Total Protein 8.3 H Albumin 3.9 Globulin 4.40 H Albumin/Globulin Ratio 0.88 Urine Color ORANGE Urine Clarity CLEAR Urine pH 6.5 Urine Specific [place] 1.020 Urine Ketones TRACE Urine Nitrite NEGATIVE Urine Bilirubin 1+ H Urine Ictotest NEGATIVE Urine Urobilinogen 1.0 E.U./dL Urine Leukocyte Esterase NEGATIVE Urine Microscopic RBC NONE SEEN Urine Microscopic WBC 2-5 Urine Epithelial Cells FEW Urine Bacteria FEW Urine Mucus MODERATE Urine Hemoglobin NEGATIVE Urine Glucose NEGATIVE Urine Total Protein 1+ H Test 08/28/16 15:38 Bedside Glucose 101 Medications Medications Current Medications Furosemide (Lasix) 20 mg ONCE ONCE IV ; Start 08/28/16 at 16:00; Stop 08/28/16 at 16:01 JOSE L BLAKE Aug 28, 2016 15:57
[2016-08-28] MEDS ORDERED: FUROSEMIDE 20 MG INJ IV ONE (16:00)
[2016-08-28] MEDS ORDERED: FUROSEMIDE 20 MG INJ IV SCH (16:30)
[2016-08-28 16:33] LABS: AADO2 Arterial 326.8 mmHg (7.0-24.0); Allen Test ACCEPTAB; Arterial Base Excess -2.4 mmol/L (-3.0-3); Arterial COHb 0.7 % (0.0-3.0); Arterial HCO3 20.6 mmol/L (22.0-26.0); Arterial MetHb 0.3 % (0.0-1.5); Arterial Total Hemglobin 15.9 g/dl (12.0-18.0); Blood Gas IEPAP 15/5; Blood Gas PS 10; MODE MASK - BIPAP
--- NOTE | 2016-08-28 17:48 | PN ---
DATE: 08/28/2016 REASON FOR RAPID RESPONSE: Respiratory distress. This is a 71-year-old gentleman with no significant past medical history who was admitted to [facility] today on 08/28/2016 secondary to having 1 day of productive cough, yellowish s putum and having shortness of breath x1 day. The patient denies having any chest pain, lower extrem ity edema or swelling. No recent travel history. No sick contact. Upon arrival to emergency room, the patient's vital signs showed temperature 98.1, pulse 114, respiration 24, blood pressure 137/77 , saturation 87%. The patient was placed on oxygen via 2 L nasal cannula which increased to 95% to 100%. Chest x-ray demonstrated mild cardiomegaly with worsening CHF, pulmonary edema, possible baljinder l obstruction, moderate osteoarthritic changes. Abdominal x-ray showed extensive pulmonary disease, no evidence of bowel obstruction, degenerative changes in the spine. The patient was treated with vancomycin, breathing treatment via Atrovent, was also treated with 2340 mL of normal saline, cefepi me and albuterol and was transferred to Med/Surg, where he started to have respiratory distress. Hi s oxygen saturation was at 75%. Rapid response team was requested. Therefore, I evaluated the radha ent. The patient's lung sounds with decreased breath sounds with rales bilaterally. He was using a ccessory muscles for breathing. Immediately I ordered Lasix 20 mg IV ____ dose and Respiratory Ther apy to place the patient on BiPAP for positive pressure. [facility] was also consulted. PHYSICAL EXAMINATION: GENERAL APPEARANCE: The patient is sitting in the bed with mild discomfort and coughing, using some accessory muscles for breathing secondary to anxiety, distress. EYES, EARS, NOSE, THROAT: Conjunctivae, lids are normal. Pupils are normal. Extraocular normal. Hearing grossly normal. NECK: Supple. Trachea is midline. LUNGS: Decreased breath sounds, bilateral lower lung singletary with rales. CARDIOVASCULAR: Normal S1, S2. Regular rhythm, rate. No murmur, no bruits. ABDOMEN: Soft, nontender, not distended. Bowel sounds present. GENITOURINARY: Deferred. MUSCULOSKELETAL: Upper, lower extremities within normal limits. PLAN: 1. Acute respiratory distress, likely secondary to congestive heart failure exacerbation and pulmon bj hypertension with additional IV fluid given in the course of emergency room. The patient was pl aced on IV Lasix. [facility] has been consulted. 2. Tachycardia secondary to respiratory distress. Suggest the patient be seen and evaluated by Car diology. A 2D echocardiogram to be obtained. 3. Questionable pneumonia. Suggest patient be started on prophylactic IV antibiotics. WBC is with in normal limits. 4. Sepsis with a lactic acid 2.3. The patient was started on cefepime. Will suggest and recommend the patient to be started on IV antibiotics. I have spoken to nurse practitioner Seble vazquez regarding this matter. 5. The patient's oxygen saturation is starting to improve status post patient being placed on oxyge n and IV Lasix was given. Dictated By: PAMELA CASTRO MD PN/NTS Conf#: [id number] DID#: [id number]
[2016-08-28] MEDS ORDERED: VANCOMYCIN IV PER PHARMACY XX SCH (18:30)
[2016-08-28] MEDS: CEFEPIME 1GM/50 ML (PMX) 50 ML IVPB SCH (19:59)
--- NOTE | 2016-08-28 21:41 | CONS ---
DATE OF ADMISSION: 08/28/2016 DATE OF CONSULTATION: Dear Dr. Austin, thank you for asking me to see Kevin Flowers in GI consultation. HISTORY OF PRESENT ILLNESS: The patient, as you know, is a 71-year-old male who is admitte d to the hospital because of shortness of breath and cough. He is currently being treated with anti biotics for pneumonia. The GI consultation is requested because the chest x-ray showed evidence of possible small-bowel obstruction, although chest x-ray is not the right study for this diagnosis. T he patient upon questioning, denies any nausea, vomiting, abdominal pain, or diarrhea. No GI bleedi ng. REVIEW OF SYSTEMS: He has a history of COPD. Currently, he is being treated with antibiotics for pneumonia. MEDICATIONS: Currently includes Lasix, cefepime, vancomycin and furosemide. PHYSICAL EXAMINATION: GENERAL: The patient is a 71-year-old male who at this time is alert, well-built. He is a febrile. VITAL SIGNS: Temperature is 100.7 this morning. HEART: Unremarkable. LUNGS: Showed occasional rales bilaterally. ABDOMEN: Showed unremarkable findings. No distention, no masses. LABORATORY WORKUP: Lactic acid level 2.4 and then 1.9. The WBC 6000, hemoglobin is 15.6, platelets 192,000. KUB showed unremarkable for bowel obstruction. CLINICAL IMPRESSION: The patient presenting with history of nonspecific abdominal findings on the c hest x-ray. This could be some degree of ileus due to pneumonia. Primarily has no bowel obstruction. PLAN: At this time, will continue to follow the patient closely. Once again, doctor, thank you for this consultation. Dictated By: WAYNE OLIVEIRA MD NC/NTS Conf#: [id number] DID#: [id number] CC: MATTHEW AUSTIN MD;*EndCC*
[2016-08-28] MEDS: VANCOMYCIN 750 MG in SOD CHLORIDE 0.9% 150 ML IVPB SCH (22:05)
[2016-08-29] VITALS (23 sets, daily range): BP systolic 125–142; BP diastolic 61–84; PULSE 95–114; RESP 16–20; Ht 162.6 cm; Wt 75.5 kg
[2016-08-29 07:19] LABS: ADD SCAN DIFF NO
[2016-08-29 07:24] LABS: BASOPHILS % 0.3 % (0.0-2.0); EOSINOPHILS % 0.7 % (0.0-7.0); HEMATOCRIT 39.4 % (42.0-52.0); HEMOGLOBIN 13.4 g/dl (14.0-18.0); LYMPHOCYTES # 0.7 10^3/ul (0.8-2.9); LYMPHOCYTES % 11.4 % (15.0-51.0); MEAN CORPUSCULAR HEMOGLOBIN 28.3 pg (29.0-33.0); MEAN CORPUSCULAR VOLUME 83.1 fl (82.0-101.0); MEAN PLATELET VOLUME 9.4 fl (7.4-10.4); MONOCYTE # 0.3 10^3/ul (0.3-0.9); MONOCYTES % 4.7 % (0.0-11.0); NEUTROPHIL # 4.9 10^3/ul (1.6-7.5); NEUTROPHILS % 82.6 % (39.0-77.0); PLATELET COUNT 160 10^3/UL (140-415); RED BLOOD COUNT 4.74 10^6/ul (4.70-6.10); RED CELL DISTRIBUTION WIDTH 16.5 % (11.5-14.5)
[2016-08-29 07:50] LABS: POTASSIUM 3.7 mmol/L (3.5-5.1)
[2016-08-29 07:53] LABS: CREATININE 0.7 mg/dl (0.61-1.24)
[2016-08-29 07:54] LABS: CALCIUM 8.4 mg/dl (8.4-10.2)
[2016-08-29] MEDS: VANCOMYCIN 750 MG in SOD CHLORIDE 0.9% 150 ML IVPB SCH ×2 (08:09→21:24)
[2016-08-29] MEDS ORDERED: FUROSEMIDE 40 MG INJ IV SCH (09:00)
--- NOTE | 2016-08-29 11:58 | CONS ---
Date/Time of Note Date/Time of Note DATE: 08/29/16 TIME: 11:56 Assessment/Plan Assessment/Plan Additional Assessment/Plan Assessment recommendations; next 1. Patient admitted for bilateral pneumonia and CHF with acute decompensation currently doing well on BiPAP. 2. History of hypertension. Continue current treatment. Try the patient off BiPAP on nasal cannula. Obtain follow-up chest x-ray tomorrow morning. Continue current antibiotics as well as intravenous Lasix. Consultation Date/Type/Reason Admit Date/Time Aug 28, 2016 at 09:31 Initial Consult Date 08/28/16 Type of Consultation: Pulmonary 24 HR Interval Summary Free Text/Dictation Patient condition is stable. Reports decreased shortness of breath. Still on BiPAP. General exam; elderly male, currently in no distress awake and alert. Exam/Review of Systems Vital Signs Vitals Vital Signs Date Time Temp Pulse Resp B/P Pulse Ox O2 Delivery O2 Flow Rate FiO2 08/29/16 11:51 99.0 105 20 126/74 94 08/29/16 04:50 70 08/28/16 18:21 Nasal Cannula 4.0 Intake and Output 08/28/16 08/28/16 08/29/16 15:00 23:00 07:00 Intake Total 250 ml Output Total 1500 ml Balance -1250 ml Exam HEENT exam; supple neck, positive JVD. No lymphadenopathy. Midline trachea. No thyromegaly. Patient has fair dentition. Chest examination; diminished but clear breath sounds. No crackles. S1-S2 audible, no murmurs. Regular rhythm. Abdomen examination; soft, nondistended. No organomegaly. Bowel sounds audible. Extremity exam is; no peripheral edema. Pulses 1+ bilaterally. CO DIRECTOR examination; no focal deficit. Results Result Diagram: 08/29/16 0635 08/29/16 0632 Results 24 hrs Laboratory Tests Test 08/28/16 14:35 08/28/16 15:38 08/28/16 15:44 08/28/16 16:05 Lactic Acid Level 1.9 B-Type Natriuretic Peptide 202 H Bedside Glucose 101 Blood Gas Specimen Source Blood arterial Arterial Blood Date Drawn 08/28/2016 4:10:01 PM Arterial Blood pH (Temp corrected) 7.433 Arterial Blood pCO2 (Temp correct) 31.6 L Arterial Blood pO2 (Temp corrected) 66.2 L Arterial Blood HCO3 20.6 L Arterial Blood Base Excess -2.4 Arterial Blood Oxygen Saturation 92.9 L Wai Test ACCEPTAB Arterial Blood Gas Puncture Site Right Radial Arterial Blood Carboxyhemoglobin 0.7 Arterial Blood Methemoglobin 0.3 Blood Gas A-a O2 Differential 326.8 H Oxyhemoglobin Percent 92.0 L Total Hemoglobin 15.9 Blood Gas Temperature 37.0 Blood Gas Respiration Rate 14.0 Blood Gas Actual Respiration Rate 34 Blood Gas Modality MASK - BIPAP FiO2 60.0 Blood Gas Pressure Support 10 Blood Gas IPAP/EPAP Ratio 08/10 Blood Gas Notified Whom DT Blood Gas Notified Time 08/28/2016 4:30:22 PM Troponin I < 0.012 Test 08/29/16 06:32 08/29/16 06:35 Sodium Level 133 L Potassium Level 3.7 Chloride Level 100 Carbon Dioxide Level 23 Anion Gap 14 Blood Urea Nitrogen 20 Creatinine 0.70 Glucose Level 92 Calcium Level 8.4 White Blood Count 6.0 Red Blood Count 4.74 Hemoglobin 13.4 L Hematocrit 39.4 L Mean Corpuscular Volume 83.1 Mean Corpuscular Hemoglobin 28.3 L Mean Corpuscular Hemoglobin Concent 34.0 Red Cell Distribution Width 16.5 H Platelet Count 160 Mean Platelet Volume 9.4 Neutrophils % 82.6 H Lymphocytes % 11.4 L Monocytes % 4.7 Eosinophils % 0.7 Basophils % 0.3 Nucleated Red Blood Cells % 0.0 Neutrophils # 4.9 Lymphocytes # 0.7 L Monocytes # 0.3 Eosinophils # 0.0 Basophils # 0.0 Nucleated Red Blood Cells # 0.0 Medications Medications Current Medications Furosemide 40 mg 40 mg DAILY IV Last administered on 08/29/16 08:12; Admin Dose 40 MG; Start 08/29/16 at 09:00 Cefepime HCl 50 ml @ 100 mls/hr Q12 IVPB Last administered on 08/28/16 19:59; Admin Dose 100 MLS/HR; Start 08/28/16 at 21:00 Vancomycin HCl/ Sodium Chloride (Vancocin/NS) 150 ml @ 75 mls/hr Q12H IVPB Last administered on 08/29/16 08:09; Admin Dose 75 MLS/HR; Start 08/28/16 at 20: 00 JOSE L BLAKE Aug 29, 2016 11:58
--- NOTE | 2016-08-29 11:59 | RADRPT ---
PROCEDURE: XR Chest. CLINICAL INDICATION: Shortness of breath. TECHNIQUE: Single frontal view. COMPARISON: 08/28/2016. FINDINGS: There is bilateral interstitial pulmonary disease consistent with pulmonary edema, slightly worse th an seen previously. There is no focal disease to suggest pneumonia. The heart is enlarged. There is no pleural effusion. There is no pneumothorax. IMPRESSION: 1. Pulmonary edema, slightly worse than seen previously. 2. No other change from 08/28/2016. RPTAT: QQ .Nathan Tom MD, MD Date Time Electronically viewed and signed by .Nathan Tom MD, MD on 08/29/2016 11:59 .R/
[2016-08-29] MEDS: CEFEPIME 1GM/50 ML (PMX) 50 ML IVPB SCH ×2 (12:08→21:25)
--- NOTE | 2016-08-29 13:33 | RADRPT ---
Echocardiogram Report Patient Name: SALLIE MOODY Gender: Male Date: 1945 Study Date: 29-Aug-2016 Bedspread Cutter Hand: Sd Dawn RDCS Location: [facility] Ref. Physician: MARIO LAND Quality: Technically Difficult Study Procedures: Transthoracic echocardiogram with complete 2D, M-Mode, and doppler examination. Indications: Congential Heart Disease. 2D/M Mode Doppler Measurement Value Normal Ranges Measurement Value Normal Ranges LVIDd 2D 4.2 3.5 - 5.6 cm AV Peak Luis 0.8 m/sec LVIDs 2D 2.8 2.1 - 4.1 cm AV Peak PG 3.0 mmHg FS 2D 33.5 % LVOT Peak Luis 0.7 m/sec LVPWd 2D 1.4 0.6 - 1.1 cm LVOT Peak PG 2.0 mmHg IVSd 2D 1.4 0.6 - 1.1 cm MV A Peak Luis 0.6 m/sec IVS/LVPW 2D 1.0 MV Decel Time 148 msec AoR Diam 2D 3.3 2.0 - 3.7 cm TR Peak Luis 2.9 m/sec LA/Ao 2D 1 0 - 1 TR Peak PG 34.0 mmHg EDV 2D 73.0 cm3 RVSP 42.0 mmHg ESV 2D 21.5 cm3 LA Dimen 2D 3.6 2.3 - 4.0 cm Findings Left Ventricle: Normal left ventricular systolic function. Normal left ventricular cavity size. Mild concentric left ventricular hypertrophy. Ejection fraction is visually estimated at 65 %. Tissue Doppler/Mitral Doppler indices are consistent with impaired relaxation (Stage I diastolic dysfunction). Right Ventricle: Normal right ventricular size. Normal right ventricular systolic function. Left Atrium: The left atrium is normal in size. Right Atrium: The right atrium is normal in size. Mitral Valve: Mild mitral leaflet calcification. Mild mitral annular calcification. Trace mitral regurgitation. Aortic Valve: Normal appearance of the aortic valve. No significant aortic stenosis or insufficiency. Tricuspid Valve: Tricuspid valve not well visualized. Estimated peak PA systolic pressure 42 mmHg. There is trace tricuspid regurgitation. Pulmonic Valve: Normal pulmonic valve appearance. Pericardium: Normal pericardium with no significant pericardial effusion. Aorta: Normal aortic root. IVC: The IVC is not well visualized. Conclusions 1.Normal left ventricular systolic function. Normal left ventricular cavity size. Mild concentric left ventricular hypertrophy. Ejection fraction is visually estimated at 65 %. Tissue Doppler/Mitral Doppler indices are consistent with impaired relaxation (Stage I diastolic dysfunction). 2.Normal right ventricular size. Normal right ventricular systolic function. 3.The left atrium is normal in size. 4.The right atrium is normal in size. 5.No significant valvular stenosis or regurgitation seen. 6.Normal pericardium with no significant pericardial effusion. Electronically Signed By: Pierce Pino 29-Aug-2016 13:32:15 -0700 Patient Name: SALLIE MOODY Study Date: 29-Aug-2016 [id number]
--- NOTE | 2016-08-29 15:21 | PN ---
Date/Time of Note Date/Time of Note DATE: 08/29/16 TIME: 15:13 Assessment/Plan VTE Prophylaxis VTE Prophylaxis Intervention: SCD's Lines/Catheters IV Catheter Type (from [facility]): [facility] Urinary Cath still in place: No Assessment/Plan Chief Complaint/Hosp Course ASSESSMENT AND PLAN: - Community-acquired pneumonia. Continue vancomycin and cefepime. Dr. Duarte will be following patient in infection disease consultation. - Acute respiratory distress secondary to pneumonia and CHF. Continue patient on BiPAP. Dr. Truong is following in pulmonology consultation. - Diastolic congestive heart failure with exacerbation. Continue Lasix. Monitor electrolytes. Dr. Pino is asked to see patient in cardiology consultation. - Mild cardiomegaly with ejection fraction of 65%. Continue sequential compression device for deep venous thrombosis prophylaxis and Protonix for peptic ulcer disease prophylaxis. Further recommendations based on clinical course. Plan of care discussed with Dr. Austin. Problems: Exam/Review of Systems Vital Signs Vitals Vital Signs Date Time Temp Pulse Resp B/P Pulse Ox O2 Delivery O2 Flow Rate FiO2 08/29/16 12:45 105 95 70 08/29/16 11:51 99.0 20 126/74 08/28/16 18:21 Nasal Cannula 4.0 Intake and Output 08/28/16 08/28/16 08/29/16 15:00 23:00 07:00 Intake Total 250 ml Output Total 1500 ml Balance -1250 ml Results Result Diagram: 08/29/16 0635 08/29/16 0632 Results 24 hrs Laboratory Tests Test 08/28/16 15:38 08/28/16 15:44 08/28/16 16:05 08/29/16 06:32 Bedside Glucose 101 Blood Gas Specimen Source Blood arterial Arterial Blood Date Drawn 08/28/2016 4:10:01 PM Arterial Blood pH (Temp corrected) 7.433 Arterial Blood pCO2 (Temp correct) 31.6 L Arterial Blood pO2 (Temp corrected) 66.2 L Arterial Blood HCO3 20.6 L Arterial Blood Base Excess -2.4 Arterial Blood Oxygen Saturation 92.9 L Wai Test ACCEPTAB Arterial Blood Gas Puncture Site Right Radial Arterial Blood Carboxyhemoglobin 0.7 Arterial Blood Methemoglobin 0.3 Blood Gas A-a O2 Differential 326.8 H Oxyhemoglobin Percent 92.0 L Total Hemoglobin 15.9 Blood Gas Temperature 37.0 Blood Gas Respiration Rate 14.0 Blood Gas Actual Respiration Rate 34 Blood Gas Modality MASK - BIPAP FiO2 60.0 Blood Gas Pressure Support 10 Blood Gas IPAP/EPAP Ratio 08/10 Blood Gas Notified Whom DT Blood Gas Notified Time 08/28/2016 4:30:22 PM Troponin I < 0.012 Sodium Level 133 L Potassium Level 3.7 Chloride Level 100 Carbon Dioxide Level 23 Anion Gap 14 Blood Urea Nitrogen 20 Creatinine 0.70 Glucose Level 92 Calcium Level 8.4 Test 08/29/16 06:35 White Blood Count 6.0 Red Blood Count 4.74 Hemoglobin 13.4 L Hematocrit 39.4 L Mean Corpuscular Volume 83.1 Mean Corpuscular Hemoglobin 28.3 L Mean Corpuscular Hemoglobin Concent 34.0 Red Cell Distribution Width 16.5 H Platelet Count 160 Mean Platelet Volume 9.4 Neutrophils % 82.6 H Lymphocytes % 11.4 L Monocytes % 4.7 Eosinophils % 0.7 Basophils % 0.3 Nucleated Red Blood Cells % 0.0 Neutrophils # 4.9 Lymphocytes # 0.7 L Monocytes # 0.3 Eosinophils # 0.0 Basophils # 0.0 Nucleated Red Blood Cells # 0.0 Medications Medications Current Medications Furosemide 40 mg 40 mg DAILY IV Last administered on 08/29/16 08:12; Admin Dose 40 MG; Start 08/29/16 at 09:00 Cefepime HCl 50 ml @ 100 mls/hr Q12 IVPB Last administered on 08/29/16 12:08; Admin Dose 100 MLS/HR; Start 08/28/16 at 21:00 Vancomycin HCl/ Sodium Chloride (Vancocin/NS) 150 ml @ 75 mls/hr Q12H IVPB Last administered on 08/29/16 08:09; Admin Dose 75 MLS/HR; Start 08/28/16 at 20: 00 MARIO LAND Aug 29, 2016 15:21
[2016-08-29] MEDS ORDERED: ONDANSETRON 4 MG INJ IV PRN (15:30)
[2016-08-29] MEDS ORDERED: morphine 10 MG INJ IM PRN (15:30)
--- NOTE | 2016-08-29 17:42 | CONS ---
Date/Time of Note Date/Time of Note DATE: 08/29/16 TIME: 17:38 Assessment/Plan Assessment/Plan Additional Assessment/Plan Respiratory failure Possible pneumonia Acute decompensated diastolic congestive heart failure Preserved ejection fraction Hypertension -Patient with improvement in symptoms with IV diuretics and antibiotics. Serial cardiac enzymes have remained negative. Would increase Lasix to twice daily, maintain potassium above 4.0 and magnesium above 2.0. BNP is minimally elevated, if no significant improvement with increase IV diuretics, consider CT chest. Start aspirin therapy if no contraindication. Consultation Date/Type/Reason Admit Date/Time Aug 28, 2016 at 09:31 Type of Consultation: cv Reason for Consultation Shortness of breath Hx of Present Illness This is a 71-year-old male past medical history of hypertension who presents with 4 days symptoms of productive cough, fevers and chills and progressive worsening shortness of breath. Patient denies any chest pain, dizziness. He was complaining of body aches, and fatigue. Because of worsening symptoms, patient came to the emergency room for evaluation and care. Patient with improvement in symptoms with IV diuresis, antibiotics and BiPAP. He is feeling better but still short of breath and requires BiPAP. Denies any chest pain, dizziness or lightheadedness. Past Medical History Thyroid dysfunction Medical History: hypertension Family History Significant Family History: no pertinent family hx Social History Smoking Status: Never smoker Other Social History Lives at home with family Exam/Review of Systems Vital Signs Vitals Vital Signs Date Time Temp Pulse Resp B/P Pulse Ox O2 Delivery O2 Flow Rate FiO2 08/29/16 16:04 113 08/29/16 15:52 98.8 20 130/61 92 08/29/16 12:45 70 08/28/16 18:21 Nasal Cannula 4.0 Intake and Output 08/28/16 08/28/16 08/29/16 15:00 23:00 07:00 Intake Total 250 ml Output Total 1500 ml Balance -1250 ml Exam On BiPAP Constitutional: alert, oriented Head: normocephalic Respiratory: other (Coarse breath sounds bilaterally with scattered crackles and rhonchi, no wheezing) Cardiovascular: other (S1-S2 heard), regular rate and rhythm Gastrointestinal: bowel sounds, non-tender, other (No guarding), soft Extremities: other (Trace edema, ecchymosis right lower extremity) Results Result Diagram: 08/29/16 0635 08/29/16 0632 Results 24 hrs Laboratory Tests Test 08/29/16 06:32 08/29/16 06:35 Sodium Level 133 L Potassium Level 3.7 Chloride Level 100 Carbon Dioxide Level 23 Anion Gap 14 Blood Urea Nitrogen 20 Creatinine 0.70 Glucose Level 92 Calcium Level 8.4 White Blood Count 6.0 Red Blood Count 4.74 Hemoglobin 13.4 L Hematocrit 39.4 L Mean Corpuscular Volume 83.1 Mean Corpuscular Hemoglobin 28.3 L Mean Corpuscular Hemoglobin Concent 34.0 Red Cell Distribution Width 16.5 H Platelet Count 160 Mean Platelet Volume 9.4 Neutrophils % 82.6 H Lymphocytes % 11.4 L Monocytes % 4.7 Eosinophils % 0.7 Basophils % 0.3 Nucleated Red Blood Cells % 0.0 Neutrophils # 4.9 Lymphocytes # 0.7 L Monocytes # 0.3 Eosinophils # 0.0 Basophils # 0.0 Nucleated Red Blood Cells # 0.0 Medications Medications Current Medications Furosemide 40 mg 40 mg DAILY IV Last administered on 08/29/16 08:12; Admin Dose 40 MG; Start 08/29/16 at 09:00 Cefepime HCl 50 ml @ 100 mls/hr Q12 IVPB Last administered on 08/29/16 12:08; Admin Dose 100 MLS/HR; Start 08/28/16 at 21:00 Vancomycin HCl/ Sodium Chloride (Vancocin/NS) 150 ml @ 75 mls/hr Q12H IVPB Last administered on 08/29/16 08:09; Admin Dose 75 MLS/HR; Start 08/28/16 at 20: 00 Acetaminophen (Tylenol Tab) 650 mg Q4H PRN PO PAIN AND OR ELEVATED TEMP; Start 08/29/16 at 15:30 Pantoprazole (Protonix Iv) 40 mg DAILY@06 IV ; Start 08/30/16 at 06:00 Enoxaparin Sodium (Lovenox) 30 mg DAILY SC ; Start 08/30/16 at 09:00 Carvedilol (Coreg) 3.125 mg BID PO ; Start 08/29/16 at 21:00 Ondansetron HCl (Zofran Inj) 4 mg Q6H PRN IV NAUSEA AND/OR VOMITING; Start 08/29 at 15:30 Morphine Sulfate (morphine) 2 mg Q4H PRN IM SEVERE PAIN LEVEL 7-10; Start at 15:30 Miscellaneous Information (*Rx Drug Level Order Reminder*) VANCO TR LEVEL PRIOR... ONCE ONCE XX ; Start 08/30/16 at 07:00; Stop 08/30/16 at 07:01 Procedures Procedures ECG done yesterday demonstrates sinus tachycardia at 115 bpm, normal QRS duration, no significant ischemic STT wave abnormalities Pierce Pino DO Aug 29, 2016 17:42
[2016-08-29] MEDS ORDERED: POTASSIUM CHLORIDE 20 MEQ POWDER FOR ORAL SOLN PO ONE (18:00)
[2016-08-29 18:17] LABS: CREATINE KINASE 30 IU/L (23-200)
[2016-08-29 18:29] LABS: CK-MB 0.25 ng/ml (0.0-2.4)
[2016-08-29 18:30] LABS: TROPONIN-I < 0.012 ng/ml (0.00-0.12)
[2016-08-29] MEDS: FUROSEMIDE 40 MG INJ IV SCH (18:41)
--- NOTE | 2016-08-29 20:04 | PN ---
DATE: SUBJECTIVE: At this time, patient denies any abdominal pain. He continues to have shortness of yolis ath and is on BiPAP. OBJECTIVE: GENERAL: The patient is alert, is on BiPAP. ABDOMEN: Soft abdomen with no palpable masses, no tenderness, no distention. VITAL SIGNS: Temperature is 98.8. The blood pressure is 130/61. CARDIOVASCULAR: Normal heart sounds. RESPIRATORY: Occasional rales bilaterally heard. LABORATORY WORKUP: Hemoglobin 13.4, WBC 6.0. The KUB showed extensive pulmonary disease. No bowel obstruction. CLINICAL IMPRESSION. The patient presenting with history from the gastrointestinal standpoint of dy spepsia, drop in hemoglobin. No active gastrointestinal bleeding noted. PLAN: 1. Continue to monitor the hemoglobin. Dictated By: WAYNE BENEDICT/DONYA Conf#: [id number] DID#: [id number] CC: WAYNE OLIVEIRA MD; MATTHEW CALDERON MD;*EndCC*
[2016-08-30] VITALS (23 sets, daily range): BP systolic 110–124; BP diastolic 68–82; PULSE 79–106; RESP 16–27
[2016-08-30] MEDS: PANTOPRAZOLE 40 MG INJ IV SCH (06:10)
[2016-08-30] MEDS: FUROSEMIDE 40 MG INJ IV SCH ×2 (06:11→16:53)
[2016-08-30 07:23] LABS: ADD SCAN DIFF NO
[2016-08-30 07:33] LABS: BASOPHILS % 0.5 % (0.0-2.0); EOSINOPHILS # 0.1 10^3/ul (0.0-0.5); EOSINOPHILS % 1.8 % (0.0-7.0); HEMATOCRIT 44.5 % (42.0-52.0); HEMOGLOBIN 14.9 g/dl (14.0-18.0); LYMPHOCYTES # 0.9 10^3/ul (0.8-2.9); LYMPHOCYTES % 14.3 % (15.0-51.0); MEAN CORPUSCULAR HEMOGLOBIN 28.2 pg (29.0-33.0); MEAN CORPUSCULAR HGB CONC 33.5 g/dl (32.0-37.0); MEAN CORPUSCULAR VOLUME 84.3 fl (82.0-101.0); MEAN PLATELET VOLUME 10.1 fl (7.4-10.4); MONOCYTE # 0.3 10^3/ul (0.3-0.9); MONOCYTES % 4.9 % (0.0-11.0); NEUTROPHIL # 4.8 10^3/ul (1.6-7.5); PLATELET COUNT 191 10^3/UL (140-415); RED BLOOD COUNT 5.28 10^6/ul (4.70-6.10); RED CELL DISTRIBUTION WIDTH 16.3 % (11.5-14.5); WHITE BLOOD COUNT 6.2 10^3/ul (4.8-10.8)
[2016-08-30 07:48] LABS: CALCIUM 9.3 mg/dl (8.4-10.2); CREATININE 0.9 mg/dl (0.61-1.24); POTASSIUM 3.9 mmol/L (3.5-5.1)
[2016-08-30] MEDS: ASPIRIN 81 MG TAB PO SCH (08:52)
[2016-08-30] MEDS: ACETAMINOPHEN 325 MG TAB PO PRN (08:52)
[2016-08-30] MEDS: VANCOMYCIN 750 MG in SOD CHLORIDE 0.9% 150 ML IVPB SCH (08:53)
[2016-08-30] MEDS: CEFEPIME 1GM/50 ML (PMX) 50 ML IVPB SCH ×2 (08:53→20:54)
[2016-08-30] MEDS: ENOXAPARIN 30 MG/0.3 ML SYG SC SCH (09:00)
--- NOTE | 2016-08-30 10:53 | CONS ---
Date/Time of Note Date/Time of Note DATE: 08/30/16 TIME: 10:51 Assessment/Plan Assessment/Plan Additional Assessment/Plan Assessment recommendations; 1. Patient admitted for shortness of breath related to diastolic dysfunction pulmonary edema and possibly superimposed bilateral pneumonia. 3. History of severe hypertension. Continue current treatment. Obtain a chest x-ray. Continue current antibiotics. Consultation Date/Type/Reason Admit Date/Time Aug 28, 2016 at 09:31 Initial Consult Date 08/28/16 Type of Consultation: Pulmonary 24 HR Interval Summary Free Text/Dictation Patient's condition remains tenuous at best. Still requiring BiPAP at fairly high FiO2. Patient however denies any decompensation in reporting that he is feeling better. Denies any chest pain, wheezing. Abdominal pain, nausea vomiting. Abdomen exam; elderly male, currently on BiPAP awake and alert. Currently in no distress. Exam/Review of Systems Vital Signs Vitals Vital Signs Date Time Temp Pulse Resp B/P Pulse Ox O2 Delivery O2 Flow Rate FiO2 08/30/16 08:28 90 08/30/16 07:23 98.3 25 123/75 94 08/30/16 05:12 70 08/28/16 18:21 Nasal Cannula 4.0 Intake and Output 08/29/16 08/29/16 08/30/16 15:00 23:00 07:00 Intake Total 200 ml 490 ml Output Total 1000 ml Balance 200 ml -510 ml Exam HEENT exam; supple neck, positive JVD. No lymphadenopathy. Midline trachea. No therapy. Patient's has multiple carious teeth. Pupils are small bilaterally. Chest examination : Decreased breath sounds bilaterally.. S1-S2 audible, no murmurs. Regular rhythm. Abdomen examination; soft, nondistended. Bowel sounds audible. Extremity exam; no peripheral edema. Pulses 1+ bilaterally. METER TESTER examination; no focal deficit. Results Result Diagram: 08/30/16 0655 08/30/16 0655 Results 24 hrs Laboratory Tests Test 08/29/16 17:50 08/30/16 06:55 Creatine Kinase 30 Creatine Kinase Index 0.8 Creatinine Kinase MB (Mass) 0.25 Troponin I < 0.012 White Blood Count 6.2 Red Blood Count 5.28 Hemoglobin 14.9 Hematocrit 44.5 Mean Corpuscular Volume 84.3 Mean Corpuscular Hemoglobin 28.2 L Mean Corpuscular Hemoglobin Concent 33.5 Red Cell Distribution Width 16.3 H Platelet Count 191 Mean Platelet Volume 10.1 Neutrophils % 78.0 H Lymphocytes % 14.3 L Monocytes % 4.9 Eosinophils % 1.8 Basophils % 0.5 Nucleated Red Blood Cells % 0.0 Neutrophils # 4.8 Lymphocytes # 0.9 Monocytes # 0.3 Eosinophils # 0.1 Basophils # 0.0 Nucleated Red Blood Cells # 0.0 Sodium Level 134 L Potassium Level 3.9 Chloride Level 98 Carbon Dioxide Level 27 Anion Gap 13 Blood Urea Nitrogen 30 H Creatinine 0.90 Glucose Level 121 Calcium Level 9.3 Magnesium Level 2.2 Vancomycin Level Trough 7.9 L Medications Medications Current Medications Cefepime HCl 50 ml @ 100 mls/hr Q12 IVPB Last administered on 08/30/16 08:53; Admin Dose 100 MLS/HR; Start 08/28/16 at 21:00 Vancomycin HCl/ Sodium Chloride (Vancocin/NS) 150 ml @ 75 mls/hr Q12H IVPB Last administered on 08/30/16 08:53; Admin Dose 75 MLS/HR; Start 08/28/16 at 20: 00; Stop 08/30/16 at 11:00 Acetaminophen (Tylenol Tab) 650 mg Q4H PRN PO PAIN AND OR ELEVATED TEMP Last administered on 08/30/16 08:52; Admin Dose 650 MG; Start 08/29/16 at 15:30 Pantoprazole (Protonix Iv) 40 mg DAILY@06 IV Last administered on 08/30/16 06: 10; Admin Dose 40 MG; Start 08/30/16 at 06:00 Enoxaparin Sodium (Lovenox) 30 mg DAILY SC Last administered on 08/30/16 09:00 ; Admin Dose 30 MG; Start 08/30/16 at 09:00 Carvedilol (Coreg) 3.125 mg BID PO Last administered on 08/30/16 08:53; Admin Dose 3.125 MG; Start 08/29/16 at 21:00 Ondansetron HCl (Zofran Inj) 4 mg Q6H PRN IV NAUSEA AND/OR VOMITING; Start 08/29 at 15:30 Morphine Sulfate (morphine) 2 mg Q4H PRN IM SEVERE PAIN LEVEL 7-10; Start at 15:30 Aspirin 81 mg 81 mg DAILY PO Last administered on 08/30/16t 08:52; Admin Dose 81 MG; Start 08/30/16 at 09:00 Vancomycin HCl/ Sodium Chloride (Vancocin/NS) 250 ml @ 83.333 mls/ hr Q12H IVPB ; Start 08/30/16 at 18:00 JOSE L BLAKE Aug 30, 2016 10:53
--- NOTE | 2016-08-30 12:31 | RADRPT ---
PROCEDURE: XR Chest. CLINICAL INDICATION: 71-year-old male with CHF. TECHNIQUE: Single frontal view of the chest was obtained COMPARISON: Chest x-ray 08/29/2016. Chest x-ray 05/20/2014. Chest x-ray 07/29/2016. FINDINGS: The soft tissues are normal. There are osteophytes in the thoracic and upper lumbar spine. The hea rt is enlarged. The cardiomediastinal silhouette and hilar structures are normal. The pulmonary vas culature is increased. There is a left-sided aorta. there are bilateral mixed interstitial and reti cular nodular infiltrates which are stable. Small pleural effusions are not excluded. IMPRESSION: 1. Cardiomegaly with bilateral pulmonary infiltrates which are unchanged compared to 08/29/2016 and show progressive worsening when compared to 07/29/2016. These infiltrates are not identified on chest x-ray. Findings are suspicious for pneumonia and/or CHF. 2. Cardiomegaly. 3. Spondylosis of the thoracic spine. RPTAT:AAJJ Physician Ana Maria Date Time Electronically viewed and signed by Physician Ana Maria on 08/30/2016 12:31 /
--- NOTE | 2016-08-30 15:56 | PN ---
Date/Time of Note Date/Time of Note DATE: 08/30/16 TIME: 15:52 Assessment/Plan VTE Prophylaxis VTE Prophylaxis Intervention: SCD's Lines/Catheters IV [facility] (from [facility] Peripheral IV Urinary Cath still in place: No Assessment/Plan Assessment/Plan - Community-acquired pneumonia. Continue vancomycin and cefepime. - per Dr. Duarte will be following patient in infection disease consultation. - Acute respiratory distress secondary to pneumonia and CHF. Continue patient on BiPAP. - per Dr. Truong in pulmonology consultation. - Diastolic congestive heart failure with exacerbation. Continue Lasix. Monitor electrolytes. - per Dr. Pino in cardiology consultation. - Mild cardiomegaly with ejection fraction of 65%. Continue sequential compression device for deep venous thrombosis prophylaxis and Protonix for peptic ulcer disease prophylaxis. Further recommendations based on clinical course. Plan of care discussed with Dr. Austin. Subjective 24 Hr Interval Summary Free Text/Dictation remains on BIPAP- Dr Benavides follows. staff. Exam/Review of Systems Vital Signs Vitals Vital Signs Date Time Temp Pulse Resp B/P Pulse Ox O2 Delivery O2 Flow Rate FiO2 08/30/16 15:05 97.8 80 26 124/82 97 08/30/16 13:50 70 08/28/16 18:21 Nasal Cannula 4.0 Intake and Output 08/29/16 08/29/16 08/30/16 15:00 23:00 07:00 Intake Total 200 ml 490 ml Output Total 1000 ml Balance 200 ml -510 ml Exam Psych: nl mood/affect Eyes: nl sclera ENMT: nl external ears & nose Neck: non-tender Respiratory: diminished breath sounds Cardiovascular: nl pulses Gastrointestinal: non-tender, soft Musculoskeletal: nl extremities to inspection Extremities: normal pulses Lymph: nontender Results Result Diagram: 08/30/16 0655 08/30/16 0655 Results 24 hrs Laboratory Tests Test 08/29/16 17:50 08/30/16 06:55 Creatine Kinase 30 Creatine Kinase Index 0.8 Creatinine Kinase MB (Mass) 0.25 Troponin I < 0.012 White Blood Count 6.2 Red Blood Count 5.28 Hemoglobin 14.9 Hematocrit 44.5 Mean Corpuscular Volume 84.3 Mean Corpuscular Hemoglobin 28.2 L Mean Corpuscular Hemoglobin Concent 33.5 Red Cell Distribution Width 16.3 H Platelet Count 191 Mean Platelet Volume 10.1 Neutrophils % 78.0 H Lymphocytes % 14.3 L Monocytes % 4.9 Eosinophils % 1.8 Basophils % 0.5 Nucleated Red Blood Cells % 0.0 Neutrophils # 4.8 Lymphocytes # 0.9 Monocytes # 0.3 Eosinophils # 0.1 Basophils # 0.0 Nucleated Red Blood Cells # 0.0 Sodium Level 134 L Potassium Level 3.9 Chloride Level 98 Carbon Dioxide Level 27 Anion Gap 13 Blood Urea Nitrogen 30 H Creatinine 0.90 Glucose Level 121 Calcium Level 9.3 Magnesium Level 2.2 Vancomycin Level Trough 7.9 L Medications Medications Current Medications Cefepime HCl (Maxipime 1gm/50 ml (Pmx)) 50 ml @ 100 mls/hr Q12 IVPB Last administered on 08/30/16 08:53; Admin Dose 100 MLS/HR; Start 08/28/16 at 21:00 Acetaminophen (Tylenol Tab) 650 mg Q4H PRN PO PAIN AND OR ELEVATED TEMP Last administered on 08/30/16 08:52; Admin Dose 650 MG; Start 08/29/16 at 15:30 Pantoprazole (Protonix Iv) 40 mg DAILY@06 IV Last administered on 08/30/16 06: 10; Admin Dose 40 MG; Start 08/30/16 at 06:00 Enoxaparin Sodium (Lovenox) 30 mg DAILY SC Last administered on 08/30/16 09:00 ; Admin Dose 30 MG; Start 08/30/16 at 09:00 Carvedilol (Coreg) 3.125 mg BID PO Last administered on 08/30/16 08:53; Admin Dose 3.125 MG; Start 08/29/16 at 21:00 Ondansetron HCl (Zofran Inj) 4 mg Q6H PRN IV NAUSEA AND/OR VOMITING; Start 08/29 at 15:30 Morphine Sulfate (morphine) 2 mg Q4H PRN IM SEVERE PAIN LEVEL 7-10; Start at 15:30 Aspirin 81 mg 81 mg DAILY PO Last administered on 08/30/16 08:52; Admin Dose 81 MG; Start 08/30/16 at 09:00 Vancomycin HCl/ Sodium Chloride (Vancocin/NS) 250 ml @ 83.333 mls/ hr Q12H IVPB ; Start 08/30/16 at 18:00 CHARITY DUKE Aug 30, 2016 15:56
[2016-08-30] MEDS: VANCOMYCIN 1.25 GM in SOD CHLORIDE 0.9% 250 ML IVPB SCH (16:53)
[2016-08-31] VITALS (24 sets, daily range): BP systolic 118–137; BP diastolic 65–84; PULSE 72–98; RESP 16–19
[2016-08-31] MEDS: PANTOPRAZOLE 40 MG INJ IV SCH (06:07)
[2016-08-31 06:08] LABS: ADD SCAN DIFF NO
[2016-08-31] MEDS: VANCOMYCIN 1.25 GM in SOD CHLORIDE 0.9% 250 ML IVPB SCH (06:08)
[2016-08-31] MEDS: FUROSEMIDE 40 MG INJ IV SCH ×2 (06:08→17:18)
[2016-08-31 06:30] LABS: BASOPHILS % 0.3 % (0.0-2.0); EOSINOPHILS # 0.2 10^3/ul (0.0-0.5); EOSINOPHILS % 3.3 % (0.0-7.0); HEMATOCRIT 41.4 % (42.0-52.0); HEMOGLOBIN 13.9 g/dl (14.0-18.0); LYMPHOCYTES # 0.8 10^3/ul (0.8-2.9); LYMPHOCYTES % 13.5 % (15.0-51.0); MEAN CORPUSCULAR HEMOGLOBIN 28.3 pg (29.0-33.0); MEAN CORPUSCULAR HGB CONC 33.6 g/dl (32.0-37.0); MEAN CORPUSCULAR VOLUME 84.3 fl (82.0-101.0); MEAN PLATELET VOLUME 10.8 fl (7.4-10.4); MONOCYTE # 0.4 10^3/ul (0.3-0.9); MONOCYTES % 6.1 % (0.0-11.0); NEUTROPHIL # 4.6 10^3/ul (1.6-7.5); NEUTROPHILS % 76.3 % (39.0-77.0); PLATELET COUNT 172 10^3/UL (140-415); RED BLOOD COUNT 4.91 10^6/ul (4.70-6.10); RED CELL DISTRIBUTION WIDTH 15.9 % (11.5-14.5); WHITE BLOOD COUNT 6.1 10^3/ul (4.8-10.8)
[2016-08-31 06:54] LABS: CALCIUM 9.1 mg/dl (8.4-10.2); CREATININE 0.81 mg/dl (0.61-1.24); POTASSIUM 3.8 mmol/L (3.5-5.1)
[2016-08-31] MEDS: ASPIRIN 81 MG TAB PO SCH (08:49)
[2016-08-31] MEDS: CEFEPIME 1GM/50 ML (PMX) 50 ML IVPB SCH (08:49)
[2016-08-31] MEDS: ACETAMINOPHEN 325 MG TAB PO PRN ×2 (08:50→23:10)
[2016-08-31] MEDS: ENOXAPARIN 30 MG/0.3 ML SYG SC SCH (08:56)
--- NOTE | 2016-08-31 09:36 | RADRPT ---
PROCEDURE: XR Chest. CLINICAL INDICATION: Shortness of breath. TECHNIQUE: Single frontal view. COMPARISON: 08/30/2016. FINDINGS: There is bilateral interstitial and alveolar edema, slightly improved. The lungs are otherwise carlos r with no focal disease. The heart is mildly enlarged. There is no pleural effusion. There is no pneumothorax. IMPRESSION: 1. Slightly improved pulmonary edema. 2. Cardiomegaly. RPTAT: QQ .Nathan Tom MD, MD Date Time Electronically viewed and signed by .Nathan Tom MD, MD on 08/31/2016 09:35 .R/
--- NOTE | 2016-08-31 12:45 | PN ---
Date/Time of Note Date/Time of Note DATE: 08/31/16 TIME: 12:39 Assessment/Plan VTE Prophylaxis VTE Prophylaxis Intervention: SCD's Lines/Catheters IV [facility]ter Type (from [facility]): Peripheral IV Urinary Cath still in place: No Assessment/Plan Chief Complaint/Hosp Course ASSESSMENT AND PLAN: - Community-acquired pneumonia. Continue vancomycin and cefepime. Dr. Duarte is following patient in infection disease consultation. - Acute respiratory distress secondary to pneumonia and CHF. Continue patient on BiPAP. Dr. Truong is following in pulmonology consultation. - Diastolic congestive heart failure with exacerbation. Continue Lasix. Monitor electrolytes. Dr. Pino is following in cardiology consultation. - Mild cardiomegaly with ejection fraction of 65%. Continue sequential compression device for deep venous thrombosis prophylaxis and Protonix for peptic ulcer disease prophylaxis. Further recommendations based on clinical course. Plan of care discussed with Dr. Austin. Problems: Subjective 24 Hr Interval Summary Free Text/Dictation Patient's continues on BiPAP, denies any fever, denies shortness of breath. Exam/Review of Systems Vital Signs Vitals Vital Signs Date Time Temp Pulse Resp B/P Pulse Ox O2 Delivery O2 Flow Rate FiO2 08/31/16 12:37 86 08/31/16 11:12 98.0 18 126/74 98 08/31/16 09:10 70 08/28/16 18:21 Nasal Cannula 4.0 Intake and Output 08/30/16 08/30/16 08/31/16 15:00 23:00 07:00 Intake Total 450 ml Output Total 400 ml Balance 50 ml Exam PHYSICAL ASSESSMENT: GENERAL: Well-developed, well-nourished gentleman currently is awake, alert, on Bipap. HEENT: Head is atraumatic, normocephalic. PERRLA. NECK: Supple, no cervical lymphadenopathy, no thyromegaly. CHEST: Slightly diminished at the bases. There is no rhonchi, wheezes, rales noted. CARDIOVASCULAR: Normal S1, S2. No murmurs, clicks, rubs noted. ABDOMEN: Round, soft, nondistended. Patient has right upper quadrant tenderness. EXTREMITIES: There is no edema, clubbing, cyanosis. Pulses equal bilaterally 2 +. SKIN: There is no rash, petechiae noted. NEUROLOGIC: The patient is awake, alert and oriented x4. Results Result Diagram: 08/31/16 0515 08/31/16 0515 Results 24 hrs Laboratory Tests Test 08/31/16 05:15 White Blood Count 6.1 Red Blood Count 4.91 Hemoglobin 13.9 L Hematocrit 41.4 L Mean Corpuscular Volume 84.3 Mean Corpuscular Hemoglobin 28.3 L Mean Corpuscular Hemoglobin Concent 33.6 Red Cell Distribution Width 15.9 H Platelet Count 172 Mean Platelet Volume 10.8 H Neutrophils % 76.3 Lymphocytes % 13.5 L Monocytes % 6.1 Eosinophils % 3.3 Basophils % 0.3 Nucleated Red Blood Cells % 0.0 Neutrophils # 4.6 Lymphocytes # 0.8 Monocytes # 0.4 Eosinophils # 0.2 Basophils # 0.0 Nucleated Red Blood Cells # 0.0 Sodium Level 134 L Potassium Level 3.8 Chloride Level 98 Carbon Dioxide Level 26 Anion Gap 14 Blood Urea Nitrogen 36 H Creatinine 0.81 Glucose Level 113 Calcium Level 9.1 Medications Medications Current Medications Cefepime HCl (Maxipime 1gm/50 ml (Pmx)) 50 ml @ 100 mls/hr Q12 IVPB Last administered on 08/31/16 08:49; Admin Dose 100 MLS/HR; Start 08/28/16 at 21:00 Acetaminophen (Tylenol Tab) 650 mg Q4H PRN PO PAIN AND OR ELEVATED TEMP Last administered on 08/31/16 08:50; Admin Dose 650 MG; Start 08/29/16 at 15:30 Pantoprazole (Protonix Iv) 40 mg DAILY@06 IV Last administered on 08/31/16 06: 07; Admin Dose 40 MG; Start 08/30/16 at 06:00 Enoxaparin Sodium (Lovenox) 30 mg DAILY SC Last administered on 08/31/16 08:56 ; Admin Dose 30 MG; Start 08/30/16 at 09:00 Carvedilol (Coreg) 3.125 mg BID PO Last administered on 08/31/16 08:50; Admin Dose 3.125 MG; Start 08/29/16 at 21:00 Ondansetron HCl (Zofran Inj) 4 mg Q6H PRN IV NAUSEA AND/OR VOMITING; Start 08/29 at 15:30 Morphine Sulfate (morphine) 2 mg Q4H PRN IM SEVERE PAIN LEVEL 7-10; Start at 15:30 Aspirin 81 mg 81 mg DAILY PO Last administered on 08/31/16 08:49; Admin Dose 81 MG; Start 08/30/16 at 09:00 Vancomycin HCl/ Sodium Chloride (Vancocin/NS) 250 ml @ 83.333 mls/ hr Q12H IVPB Last administered on 08/31/16 06:08; Admin Dose 83.333 MLS/HR; Start at 18:00 Miscellaneous Information (*Rx Drug Level Order Reminder*) VANCO TROUGH @ 0, 500 ON... ONCE ONCE XX ; Start 09/01/16 at 05:00; Stop 09/01/16 at 05:01 MARIO LAND Aug 31, 2016 12:45
--- NOTE | 2016-08-31 14:07 | CONS ---
DATE OF ADMISSION: 08/28/2016 DATE OF CONSULTATION: 08/31/2016 REASON FOR CONSULTATION: Antibiotic management. HISTORY OF PRESENT ILLNESS: Kevin Brooks is a 71-year-old male admitted on 017 with a fever, cough, and nausea. The patient is a 71-year-old male with no previous si gnificant medical or surgical history. He developed a productive cough with yellow sputum productio n over a few days prior to admission. He also developed fever and nausea. Patient was diagnosed wi th pneumonia and was started on broad spectrum antibiotics. He was admitted for further evaluation and management of his medical problems. He was felt to have community-acquired pneumonia. On admis raoul, his white count was 6.0, currently his white count is 6.1, H and H 13.9 and 41.4, platelet cou nt of 272,000. BUN and creatinine 36/0.8. Urine is negative for nitrite and leukocyte esterase. T he patient had no growth in blood or urine. He was started on vancomycin and cefepime. Chest x-ray showed mild cardiomegaly with worsening CHF and pulmonary edema, possible bowel obstruction. Corre lation with abdominal film was recommended, moderate osteoarthritic changes. Abdominal x-ray extens jaleel pulmonary disease, correlate with chest radiograph, no evidence for bowel obstruction. His ches t x-ray today shows slight improvement in pulmonary edema and cardiomegaly. The patient was felt to have community-acquired pneumonia, but he was placed on vancomycin and cefepime. PAST MEDICAL HISTORY: Operations as outlined. FAMILY HISTORY: Noncontributory. SOCIAL HISTORY: Denies smoking. He drinks alcohol, a few beers a day. Does not abuse drugs. ALLERGIES: NONE TO PENICILLIN, SULFA OR FOODS. MEDICATIONS: Per chart. REVIEW OF SYSTEMS: As per HPI. PHYSICAL EXAMINATION: GENERAL: The patient is a well-developed, well-nourished male who is alert, responsive, in no acute distress. VITAL SIGNS: Stable. He is afebrile. SKIN: Without generalized rash. HEENT: Within normal limits. NECK: Supple. LYMPH NODES: None palpable. CHEST: Decreased breath sounds at the bases without rhonchi. HEART: Without murmur or gallop. ABDOMEN: Soft, nontender, without organosplenomegaly or masses. EXTREMITIES: Without cyanosis, clubbing, or edema. RECTAL AND GENITAL: Deferred. NEUROLOGIC: No focal neurological abnormalities. IMPRESSION AND PLAN: The patient has community-acquired pneumonia. We are going to deescalate and stop his vancomycin, Zosyn, start him on either ceftriaxone or just simply stop his vancomycin at th is point and continue him on the cefepime. I will dictate my findings to Dr. Austin and the consu ltants. Dictated By: THUAN WYNN MD, JD/DONYA Conf#: [id number] DID#: [id number]
[2016-08-31] MEDS: LEVOFLOXACIN 500 MG TAB PO SCH (14:45)
--- NOTE | 2016-08-31 15:23 | RADRPT ---
Vent Rate: 115 bpm RR Interval: 0 msec WA Interval: 130 msec QRS Duration: 72 msec QT Interval: 312 msec QTC Interval: 431 msec P-R-T Linn: 39 - -5 - 53 degrees Sinus tachycardia PRWP V3-V6 Otherwise normal ECG Electronically Signed By: Taco Lemos [id number]
[2016-09-01] VITALS (25 sets, daily range): BP systolic 115–138; BP diastolic 69–87; PULSE 75–90; RESP 15–20
[2016-09-01] MEDS: PANTOPRAZOLE (EC) 40 MG TAB PO SCH (05:27)
[2016-09-01] MEDS: FUROSEMIDE 40 MG INJ IV SCH ×2 (05:27→18:17)
[2016-09-01] MEDS: LEVOFLOXACIN 500 MG TAB PO SCH (05:27)
[2016-09-01 06:27] LABS: ADD SCAN DIFF NO
[2016-09-01 07:15] LABS: POTASSIUM 3.4 mmol/L (3.5-5.1)
[2016-09-01 07:17] LABS: CREATININE 0.76 mg/dl (0.61-1.24)
[2016-09-01 07:18] LABS: CALCIUM 9.3 mg/dl (8.4-10.2)
[2016-09-01 07:21] LABS: BASOPHILS % 0.4 % (0.0-2.0); EOSINOPHILS # 0.2 10^3/ul (0.0-0.5); HEMATOCRIT 41.3 % (42.0-52.0); LYMPHOCYTES % 17.3 % (15.0-51.0); MEAN CORPUSCULAR HEMOGLOBIN 28.4 pg (29.0-33.0); MEAN CORPUSCULAR HGB CONC 33.9 g/dl (32.0-37.0); MEAN CORPUSCULAR VOLUME 83.8 fl (82.0-101.0); MONOCYTE # 0.3 10^3/ul (0.3-0.9); NEUTROPHIL # 3.9 10^3/ul (1.6-7.5); NEUTROPHILS % 71.9 % (39.0-77.0); PLATELET COUNT 149 10^3/UL (140-415); RED BLOOD COUNT 4.93 10^6/ul (4.70-6.10); RED CELL DISTRIBUTION WIDTH 15.4 % (11.5-14.5); WHITE BLOOD COUNT 5.5 10^3/ul (4.8-10.8)
[2016-09-01] MEDS: ASPIRIN 81 MG TAB PO SCH (09:38)
[2016-09-01] MEDS: ENOXAPARIN 30 MG/0.3 ML SYG SC SCH (09:42)
--- NOTE | 2016-09-01 12:04 | CONS ---
Date/Time of Note Date/Time of Note DATE: 09/01/16 TIME: 12:04 Assessment/Plan Assessment/Plan Chief Complaint/Hosp Course ID PROGRESS NOTE CURRENT ABX DAY #5=> Levaquin 24H INTERVAL SUMMARY * Resting comfortably on BIPAP, awake, no fevers PHYSICAL EXAMINATION: GENERAL: VSS, NAD, Afebrile HEENT: Unremarkable NECK: Supple, trachea midline. CHEST: Rise symmetrical, without dyspnea on observation HEART: Pulse RRR ABDOMEN: Soft EXTREMITIES: Warm ID ASSESSMENT 71 yo M admit 08/28/16 with: 1. Hypoxic respiratory failure w/ suspected community acquired bronchopneumonia with productive cough, fever on admission 2. SIRS on admission w/fevers=> blood Cx (-) 3. Pulmonary edema=> CHF w/mild cardiomegaly on CXR 4. QUERY COPD exacerbation playing a role w/long-term tobaccoism and interstitial lung disease per ABD X-ray 5. Questionable bowel obstruction w/nausea on admission => resolved, asymptomatic 6. ETOH=> Daily beer INVASIVES: PIV ABX ALLERGY: KNDA CURRENT ABX: CURRENT ABX DAY #5=> Levaquin S/P vancomycin and cefepime. S/P Zosyn in ED ID RECOMMENDATIONS 1. Continue current ABX 2. Observe over the weekend on ABX -> When stable anticipate anticipate DC ABX Saturday if clinically improved . . Problems: Consultation Date/Type/Reason Admit Date/Time Aug 28, 2016 at 09:31 Initial Consult Date 08/28/16 Type of Consultation: ID Exam/Review of Systems Vital Signs Vitals Vital Signs Date Time Temp Pulse Resp B/P Pulse Ox O2 Delivery O2 Flow Rate FiO2 09/01/16 12:03 85 09/01/16 12:00 98.0 18 123/79 98 09/01/16 05:03 90 08/28/16 18:21 Nasal Cannula 4.0 Intake and Output 08/31/16 08/31/16 09/01/16 15:00 23:00 07:00 Intake Total 800 ml 250 ml Output Total 1000 ml 600 ml Balance -200 ml -350 ml Results Result Diagram: 09/01/16 0531 09/01/16 0531 Results 24 hrs Laboratory Tests Test 09/01/16 05:31 White Blood Count 5.5 Red Blood Count 4.93 Hemoglobin 14.0 Hematocrit 41.3 L Mean Corpuscular Volume 83.8 Mean Corpuscular Hemoglobin 28.4 L Mean Corpuscular Hemoglobin Concent 33.9 Red Cell Distribution Width 15.4 H Platelet Count 149 Mean Platelet Volume 11.0 H Neutrophils % 71.9 Lymphocytes % 17.3 Monocytes % 6.0 Eosinophils % 4.0 Basophils % 0.4 Nucleated Red Blood Cells % 0.0 Neutrophils # 3.9 Lymphocytes # 1.0 Monocytes # 0.3 Eosinophils # 0.2 Basophils # 0.0 Nucleated Red Blood Cells # 0.0 Sodium Level 136 Potassium Level 3.4 L Chloride Level 92 L Carbon Dioxide Level 29 Anion Gap 18 H Blood Urea Nitrogen 34 H Creatinine 0.76 Glucose Level 112 Calcium Level 9.3 Medications Medications Current Medications Acetaminophen (Tylenol Tab) 650 mg Q4H PRN PO PAIN AND OR ELEVATED TEMP Last administered on 08/31/16 23:10; Admin Dose 650 MG; Start 08/29/16 at 15:30 Enoxaparin Sodium (Lovenox) 30 mg DAILY SC Last administered on 09/01/16 09:42 ; Admin Dose 30 MG; Start 08/30/16 at 09:00 Carvedilol (Coreg) 3.125 mg BID PO Last administered on 09/01/16 09:39; Admin Dose 3.125 MG; Start 08/29/16 at 21:00 Ondansetron HCl (Zofran Inj) 4 mg Q6H PRN IV NAUSEA AND/OR VOMITING; Start 08/29 at 15:30 Morphine Sulfate (morphine) 2 mg Q4H PRN IM SEVERE PAIN LEVEL 7-10; Start at 15:30 Aspirin (Aspirin) 81 mg DAILY PO Last administered on 09/01/16 09:38; Admin Dose 81 MG; Start 08/30/16 at 09:00 Levofloxacin (Levaquin) 500 mg DAILY@06 PO Last administered on 09/01/16 05:27 ; Admin Dose 500 MG; Start 08/31/16 at 14:00 Pantoprazole (Protonix Tab) 40 mg DAILY@06 PO Last administered on 09/01/16 05: 27; Admin Dose 40 MG; Start 09/01/16 at 06:00 ZARIA REAGAN NP Sep 01, 2016 12:04
--- NOTE | 2016-09-01 13:45 | CONS ---
DATE OF ADMISSION: 08/28/2016 DATE OF CONSULTATION: CHIEF COMPLAINT: At this time, the patient is not having any abdominal pain. He is on BiPAP because of shortness of breath. From a GI standpoint, he has no significant complaints. PHYSICAL EXAMINATION: GENERAL: The patient is alert, not in distress. ABDOMEN: Showed unremarkable findings. LABORATORY WORKUP: Potassium 3.4, hemoglobin is 14.0, WBC count is 5500. CLINICAL IMPRESSION: From a GI standpoint he seems to have resolved what was considered a bowel obs truction, but he is stable at this time. PLAN: Continue with the present management. Dictated By: WAYNE BENEDICT/DONYA Conf#: [id number] DID#: [id number]
[2016-09-01] MEDS ORDERED: POTASSIUM CHLORIDE 20 MEQ in SOD CHLORIDE 0.9% 100 ML IVPB ONE (14:00)
[2016-09-02] VITALS (23 sets, daily range): BP systolic 119–154; BP diastolic 76–83; PULSE 77–98; RESP 18–22
[2016-09-02] MEDS: PANTOPRAZOLE (EC) 40 MG TAB PO SCH (05:21)
[2016-09-02] MEDS: LEVOFLOXACIN 500 MG TAB PO SCH (05:21)
[2016-09-02] MEDS: FUROSEMIDE 40 MG INJ IV SCH ×2 (05:21→17:01)
[2016-09-02 06:50] LABS: ADD SCAN DIFF NO
[2016-09-02 06:52] LABS: BASOPHILS % 0.7 % (0.0-2.0); EOSINOPHILS # 0.2 10^3/ul (0.0-0.5); EOSINOPHILS % 3.4 % (0.0-7.0); HEMOGLOBIN 14.2 g/dl (14.0-18.0); LYMPHOCYTES % 17.4 % (15.0-51.0); MEAN CORPUSCULAR HGB CONC 33.8 g/dl (32.0-37.0); MEAN CORPUSCULAR VOLUME 82.8 fl (82.0-101.0); MEAN PLATELET VOLUME 11.2 fl (7.4-10.4); MONOCYTE # 0.4 10^3/ul (0.3-0.9); MONOCYTES % 6.3 % (0.0-11.0); NEUTROPHIL # 4.3 10^3/ul (1.6-7.5); NEUTROPHILS % 71.7 % (39.0-77.0); PLATELET COUNT 153 10^3/UL (140-415); RED BLOOD COUNT 5.07 10^6/ul (4.70-6.10); WHITE BLOOD COUNT 5.9 10^3/ul (4.8-10.8)
[2016-09-02 07:07] LABS: POTASSIUM 3.5 mmol/L (3.5-5.1)
[2016-09-02 07:09] LABS: CREATININE 0.85 mg/dl (0.61-1.24)
[2016-09-02 07:10] LABS: CALCIUM 9.7 mg/dl (8.4-10.2)
[2016-09-02] MEDS: ASPIRIN 81 MG TAB PO SCH (09:57)
[2016-09-02] MEDS: ENOXAPARIN 30 MG/0.3 ML SYG SC SCH (10:01)
--- NOTE | 2016-09-02 15:12 | PN ---
Date/Time of Note Date/Time of Note DATE: 09/01/16 TIME: 12:31 Assessment/Plan VTE Prophylaxis VTE Prophylaxis Intervention: other Lines/Catheters [facility] Saline Lock Urinary Cath still in place: No Assessment/Plan Assessment/Plan - Community-acquired pneumonia. Continue vancomycin and cefepime. Dr. Duarte is following patient in infection disease consultation. - Acute respiratory distress secondary to pneumonia and CHF. Continue patient on BiPAP. Dr. Truong is following in pulmonology consultation. - Diastolic congestive heart failure with exacerbation. Continue Lasix. Monitor electrolytes. Dr. Pino is following in cardiology consultation. - Mild cardiomegaly with ejection fraction of 65%. Continue sequential compression device for deep venous thrombosis prophylaxis and Protonix for peptic ulcer disease prophylaxis. Further recommendations based on clinical course. Plan of care discussed with Dr. Austin. Subjective 24 Hr Interval Summary Free Text/Dictation remains on BIPAP- at bed side- all qs answered. no new issues reported by staff. Constitutional: requiring O2 ENT: no complaints Respiratory: shortness of breath Exam/Review of Systems Vital Signs Vitals Vital Signs Date Time Temp Pulse Resp B/P Pulse Ox O2 Delivery O2 Flow Rate FiO2 09/01/16 12:03 85 09/01/16 12:00 98.0 18 123/79 98 09/01/16 05:03 90 08/28/16 18:21 Nasal Cannula 4.0 Intake and Output 08/31/16 08/31/16 09/01/16 15:00 23:00 07:00 Intake Total 800 ml 250 ml Output Total 1000 ml 600 ml Balance -200 ml -350 ml Exam Constitutional: alert, well developed Psych: no complaints Head: normocephalic Eyes: EOMI, nl sclera ENMT: nl external ears & nose Neck: non-tender Respiratory: diminished breath sounds Cardiovascular: nl pulses Gastrointestinal: non-tender, soft Musculoskeletal: nl extremities to inspection Extremities: normal pulses Neurological: nl mental status, nl speech Skin: nl turgor Lymph: nontender Results Result Diagram: 09/01/1631 09/01/16 0531 Results 24 hrs Laboratory Tests Test 09/01/16 05:31 White Blood Count 5.5 Red Blood Count 4.93 Hemoglobin 14.0 Hematocrit 41.3 L Mean Corpuscular Volume 83.8 Mean Corpuscular Hemoglobin 28.4 L Mean Corpuscular Hemoglobin Concent 33.9 Red Cell Distribution Width 15.4 H Platelet Count 149 Mean Platelet Volume 11.0 H Neutrophils % 71.9 Lymphocytes % 17.3 Monocytes % 6.0 Eosinophils % 4.0 Basophils % 0.4 Nucleated Red Blood Cells % 0.0 Neutrophils # 3.9 Lymphocytes # 1.0 Monocytes # 0.3 Eosinophils # 0.2 Basophils # 0.0 Nucleated Red Blood Cells # 0.0 Sodium Level 136 Potassium Level 3.4 L Chloride Level 92 L Carbon Dioxide Level 29 Anion Gap 18 H Blood Urea Nitrogen 34 H Creatinine 0.76 Glucose Level 112 Calcium Level 9.3 Medications Medications Current Medications Acetaminophen (Tylenol Tab) 650 mg Q4H PRN PO PAIN AND OR ELEVATED TEMP Last administered on 08/31/16 23:10; Admin Dose 650 MG; Start 08/29/16 at 15:30 Enoxaparin Sodium (Lovenox) 30 mg DAILY SC Last administered on 09/01/16 09:42 ; Admin Dose 30 MG; Start 08/30/16 at 09:00 Carvedilol (Coreg) 3.125 mg BID PO Last administered on 09/01/16 09:39; Admin Dose 3.125 MG; Start 08/29/16 at 21:00 Ondansetron HCl (Zofran Inj) 4 mg Q6H PRN IV NAUSEA AND/OR VOMITING; Start 08/29 at 15:30 Morphine Sulfate (morphine) 2 mg Q4H PRN IM SEVERE PAIN LEVEL 7-10; Start at 15:30 Aspirin (Aspirin) 81 mg DAILY PO Last administered on 09/01/16 09:38; Admin Dose 81 MG; Start 08/30/16 at 09:00 Levofloxacin (Levaquin) 500 mg DAILY@06 PO Last administered on 09/01/16 05:27 ; Admin Dose 500 MG; Start 08/31/16 at 14:00 Pantoprazole (Protonix Tab) 40 mg DAILY@06 PO Last administered on 09/01/16 05: 27; Admin Dose 40 MG; Start 09/01/16 at 06:00 CHARITY DUKE Sep 01, 2016 12:41
--- NOTE | 2016-09-02 15:12 | PN ---
Date/Time of Note Date/Time of Note DATE: 09/02/16 TIME: 15:12 Assessment/Plan Lines/Catheters IV [facility] (from [facility]): Saline Lock Urinary Cath still in place: No Assessment/Plan Assessment/Plan - Community-acquired pneumonia. Continue vancomycin and cefepime. Dr. Duarte is following patient in infection disease consultation. - Acute respiratory distress secondary to pneumonia and CHF. Continue patient on BiPAP. Dr. Truong is following in pulmonology consultation. - Diastolic congestive heart failure with exacerbation. Continue Lasix. Monitor electrolytes. Dr. Pino is following in cardiology consultation. - Mild cardiomegaly with ejection fraction of 65%. Continue sequential compression device for deep venous thrombosis prophylaxis and Protonix for peptic ulcer disease prophylaxis. Further recommendations based on clinical course. Plan of care discussed with Dr. Austin. Subjective 24 Hr Interval Summary Constitutional: improved Eyes: no complaints ENT: no complaints Respiratory: shortness of breath Cardiovascular: no complaints Gastrointestinal: no complaints Genitourinary: no complaints Musculoskeletal: no complaints Skin: no complaints Neurologic: no complaints Endocrine: no complaints Immunologic: no complaints Exam/Review of Systems Vital Signs Vitals Vital Signs Date Time Temp Pulse Resp B/P Pulse Ox O2 Delivery O2 Flow Rate FiO2 09/02/16 15:02 92 92 90 09/02/16 11:51 98.0 18 119/76 09/02/16 00:00 BIPAP Intake and Output 09/01/16 09/01/16 09/02/16 15:00 23:00 07:00 Intake Total 900 ml Output Total 900 ml Balance 0 ml Exam Constitutional: alert, oriented, well developed Psych: nl mood/affect Head: atraumatic Eyes: EOMI ENMT: nl external ears & nose Respiratory: diminished breath sounds Cardiovascular: nl pulses Gastrointestinal: non-tender, soft Musculoskeletal: nl extremities to inspection Extremities: normal pulses Neurological: nl mental status, nl speech Skin: nl turgor Lymph: nl lymph nodes Results Result Diagram: 09/02/16 0520 09/02/16 0520 Results 24 hrs Laboratory Tests Test 09/02/16 05:20 White Blood Count 5.9 Red Blood Count 5.07 Hemoglobin 14.2 Hematocrit 42.0 Mean Corpuscular Volume 82.8 Mean Corpuscular Hemoglobin 28.0 L Mean Corpuscular Hemoglobin Concent 33.8 Red Cell Distribution Width 15.0 H Platelet Count 153 Mean Platelet Volume 11.2 H Neutrophils % 71.7 Lymphocytes % 17.4 Monocytes % 6.3 Eosinophils % 3.4 Basophils % 0.7 Nucleated Red Blood Cells % 0.0 Neutrophils # 4.3 Lymphocytes # 1.0 Monocytes # 0.4 Eosinophils # 0.2 Basophils # 0.0 Nucleated Red Blood Cells # 0.0 Sodium Level 134 L Potassium Level 3.5 Chloride Level 90 L Carbon Dioxide Level 30 Anion Gap 18 H Blood Urea Nitrogen 34 H Creatinine 0.85 Glucose Level 118 Calcium Level 9.7 Medications Medications Current Medications Acetaminophen (Tylenol Tab) 650 mg Q4H PRN PO PAIN AND OR ELEVATED TEMP Last administered on 08/31/16 23:10; Admin Dose 650 MG; Start 08/29/16 at 15:30 Enoxaparin Sodium (Lovenox) 30 mg DAILY SC Last administered on 09/02/16 10:01 ; Admin Dose 30 MG; Start 08/30/16 at 09:00 Carvedilol (Coreg) 3.125 mg BID PO Last administered on 09/02/16 09:57; Admin Dose 3.125 MG; Start 08/29/16 at 21:00 Ondansetron HCl (Zofran Inj) 4 mg Q6H PRN IV NAUSEA AND/OR VOMITING; Start 08/29 at 15:30 Morphine Sulfate (morphine) 2 mg Q4H PRN IM SEVERE PAIN LEVEL 7-10; Start at 15:30 Aspirin (Aspirin) 81 mg DAILY PO Last administered on 09/02/16 09:57; Admin Dose 81 MG; Start 08/30/16 at 09:00 Levofloxacin (Levaquin) 500 mg DAILY@06 PO Last administered on 09/02/16 05:21 ; Admin Dose 500 MG; Start 08/31/16 at 14:00 Pantoprazole (Protonix Tab) 40 mg DAILY@06 PO Last administered on 09/02/16 05: 21; Admin Dose 40 MG; Start 09/01/16 at 06:00 CHARITY DUKE Sep 02, 2016 15:12
--- NOTE | 2016-09-02 19:43 | CONS ---
Date/Time of Note Date/Time of Note DATE: 09/02/16 TIME: 19:42 Assessment/Plan Assessment/Plan Chief Complaint/Hosp Course ID PROGRESS NOTE CURRENT ABX DAY #6=> Levaquin 24H INTERVAL SUMMARY * Seen earlier today while he was eating dinner -- feeling much better, O2 via NC * No coughing, no fevers PHYSICAL EXAMINATION: GENERAL: VSS, NAD, Afebrile HEENT: Unremarkable NECK: Supple, trachea midline. CHEST: Rise symmetrical, without dyspnea on observation HEART: Pulse RRR ABDOMEN: Soft EXTREMITIES: Warm ID ASSESSMENT 71 yo M admit 08/28/16 with: 1. Hypoxic respiratory failure w/ suspected community acquired bronchopneumonia with productive cough, fever on admission 2. SIRS on admission w/fevers=> blood Cx (-) 3. Pulmonary edema=> CHF w/mild cardiomegaly on CXR 4. QUERY COPD exacerbation playing a role w/long-term tobaccoism and interstitial lung disease per ABD X-ray 5. Questionable bowel obstruction w/nausea on admission => resolved, asymptomatic 6. ETOH=> Daily beer INVASIVES: PIV ABX ALLERGY: KNDA CURRENT ABX: CURRENT ABX DAY #6=> Levaquin S/P vancomycin and cefepime. S/P Zosyn in ED ID RECOMMENDATIONS 1. Continue current ABX 2. Observe over the weekend on ABX -> When stable anticipate anticipate DC ABX Saturday if clinically improved . . Problems: Consultation Date/Type/Reason Admit Date/Time Aug 28, 2016 at 09:31 Initial Consult Date 08/28/16 Type of Consultation: ID Exam/Review of Systems Vital Signs Vitals Vital Signs Date Time Temp Pulse Resp B/P Pulse Ox O2 Delivery O2 Flow Rate FiO2 09/02/16 17:37 91 93 90 09/02/16 15:53 98.0 18 136/83 09/02/16 00:00 BIPAP Intake and Output 09/01/16 09/01/16 09/02/16 14:59 22:59 06:59 Intake Total 900 ml Output Total 900 ml Balance 0 ml Results Result Diagram: 09/02/16 0520 09/02/16 0520 Results 24 hrs Laboratory Tests Test 09/02/16 05:20 White Blood Count 5.9 Red Blood Count 5.07 Hemoglobin 14.2 Hematocrit 42.0 Mean Corpuscular Volume 82.8 Mean Corpuscular Hemoglobin 28.0 L Mean Corpuscular Hemoglobin Concent 33.8 Red Cell Distribution Width 15.0 H Platelet Count 153 Mean Platelet Volume 11.2 H Neutrophils % 71.7 Lymphocytes % 17.4 Monocytes % 6.3 Eosinophils % 3.4 Basophils % 0.7 Nucleated Red Blood Cells % 0.0 Neutrophils # 4.3 Lymphocytes # 1.0 Monocytes # 0.4 Eosinophils # 0.2 Basophils # 0.0 Nucleated Red Blood Cells # 0.0 Sodium Level 134 L Potassium Level 3.5 Chloride Level 90 L Carbon Dioxide Level 30 Anion Gap 18 H Blood Urea Nitrogen 34 H Creatinine 0.85 Glucose Level 118 Calcium Level 9.7 Medications Medications Current Medications Acetaminophen (Tylenol Tab) 650 mg Q4H PRN PO PAIN AND OR ELEVATED TEMP Last administered on 08/31/16 23:10; Admin Dose 650 MG; Start 08/29/16 at 15:30 Enoxaparin Sodium (Lovenox) 30 mg DAILY SC Last administered on 09/02/16 10:01 ; Admin Dose 30 MG; Start 08/30/16 at 09:00 Carvedilol (Coreg) 3.125 mg BID PO Last administered on 09/02/16 09:57; Admin Dose 3.125 MG; Start 08/29/16 at 21:00 Ondansetron HCl (Zofran Inj) 4 mg Q6H PRN IV NAUSEA AND/OR VOMITING; Start 08/29 at 15:30 Morphine Sulfate (morphine) 2 mg Q4H PRN IM SEVERE PAIN LEVEL 7-10; Start at 15:30 Aspirin (Aspirin) 81 mg DAILY PO Last administered on 09/02/16 09:57; Admin Dose 81 MG; Start 08/30/16 at 09:00 Levofloxacin (Levaquin) 500 mg DAILY@06 PO Last administered on 09/02/16 05:21 ; Admin Dose 500 MG; Start 08/31/16 at 14:00 Pantoprazole (Protonix Tab) 40 mg DAILY@06 PO Last administered on 09/02/16 05: 21; Admin Dose 40 MG; Start 09/01/16 at 06:00 ZARIA REAGAN NP Sep 02, 2016 19:43
[2016-09-03] VITALS (11 sets, daily range): BP systolic 110–136; BP diastolic 71–77; PULSE 86–108; RESP 14–20
[2016-09-03] MEDS: LEVOFLOXACIN 500 MG TAB PO SCH (05:42)
[2016-09-03] MEDS: PANTOPRAZOLE (EC) 40 MG TAB PO SCH (05:42)
[2016-09-03] MEDS: FUROSEMIDE 40 MG INJ IV SCH ×2 (05:42→18:47)
[2016-09-03 06:38] LABS: ADD SCAN DIFF NO
[2016-09-03 06:42] LABS: BASOPHIL # 0.1 10^3/ul (0.0-0.1); BASOPHILS % 0.9 % (0.0-2.0); EOSINOPHILS # 0.2 10^3/ul (0.0-0.5); EOSINOPHILS % 2.8 % (0.0-7.0); HEMATOCRIT 42.3 % (42.0-52.0); HEMOGLOBIN 14.4 g/dl (14.0-18.0); LYMPHOCYTES # 1.2 10^3/ul (0.8-2.9); LYMPHOCYTES % 17.4 % (15.0-51.0); MEAN CORPUSCULAR HEMOGLOBIN 28.1 pg (29.0-33.0); MEAN CORPUSCULAR VOLUME 82.5 fl (82.0-101.0); MONOCYTE # 0.4 10^3/ul (0.3-0.9); MONOCYTES % 6.2 % (0.0-11.0); NEUTROPHIL # 4.9 10^3/ul (1.6-7.5); NEUTROPHILS % 71.8 % (39.0-77.0); PLATELET COUNT 150 10^3/UL (140-415); RED BLOOD COUNT 5.13 10^6/ul (4.70-6.10); WHITE BLOOD COUNT 6.8 10^3/ul (4.8-10.8)
[2016-09-03 07:01] LABS: CALCIUM 8.8 mg/dl (8.4-10.2); CREATININE 0.77 mg/dl (0.61-1.24); POTASSIUM 3.7 mmol/L (3.5-5.1)
[2016-09-03 08:59] LABS: AADO2 Arterial 608.7 mmHg (7.0-24.0); Allen Test ACCEPTAB; Arterial Base Excess 5.9 mmol/L (-3.0-3); Arterial COHb 0.1 % (0.0-3.0); Arterial Fraction of Oxyhgb 92.2 % (93.0-99.0); Arterial HCO3 29.3 mmol/L (22.0-26.0); Arterial MetHb 0.5 % (0.0-1.5); MODE HFNC
[2016-09-03] MEDS: ASPIRIN 81 MG TAB PO SCH (09:09)
[2016-09-03] MEDS: ENOXAPARIN 30 MG/0.3 ML SYG SC SCH (09:22)
[2016-09-03] MEDS: POTASSIUM CHLORIDE (SR) 20 MEQ TAB PO SCH ×2 (13:21→20:14)
--- NOTE | 2016-09-03 13:44 | CONS ---
Date/Time of Note Date/Time of Note DATE: 09/03/16 TIME: 13:43 Assessment/Plan Assessment/Plan Additional Assessment/Plan Assessment recommendations; next 1. Patient admitted for what appears to be bilateral pneumonia with interval improvement, however still requiring high flow FiO2 for O2 saturation maintenance. 2. History of hypertension. 3. Chest x-ray findings are compatible with diagnosis of pulmonary fibrosis. Continue current treatment. Obtain a CT scan of chest without contrast. Further recommendations to be made once CT is done. Consultation Date/Type/Reason Admit Date/Time Aug 28, 2016 at 09:31 Initial Consult Date 08/28/16 Type of Consultation: Pulmonary 24 HR Interval Summary Free Text/Dictation Condition is improved but still requiring high flow FiO2 for O2 saturation maintenance. Denies any chest pain, wheezing, fever, chills or any sputum production. General exam; elderly male, awake alert currently in no distress. Exam/Review of Systems Vital Signs Vitals Vital Signs Date Time Temp Pulse Resp B/P Pulse Ox O2 Delivery O2 Flow Rate FiO2 09/03/16 12:00 95 09/03/16 08:57 98.4 14 110/71 94 Nasal Cannula 09/03/16 08:23 100 09/02/16 22:42 15.0 Intake and Output 09/02/16 09/02/16 09/03/16 15:00 23:00 07:00 Intake Total 600 ml Output Total 2000 ml Balance -1400 ml Exam HEENT examined; supple neck, positive JVD. No lymphadenopathy. Midline trachea. No thyromegaly. Patient has bilateral cataracts. Pupils are small bilaterally. She is edentulous. Chest examined; scattered crackles bilaterally. S1-S2 audible, no murmurs. Regular rhythm. Abdomen examination; soft, nondistended. No organomegaly. Nontender. Bowel sounds audible. Extremity exam is; no peripheral edema. Pulses 1+ bilaterally. THIRD LOADER examination; no focal deficit. Results Result Diagram: 09/03/16 0557 09/03/16 0557 Results 24 hrs Laboratory Tests Test 09/03/16 05:57 09/03/16 07:00 White Blood Count 6.8 Red Blood Count 5.13 Hemoglobin 14.4 Hematocrit 42.3 Mean Corpuscular Volume 82.5 Mean Corpuscular Hemoglobin 28.1 L Mean Corpuscular Hemoglobin Concent 34.0 Red Cell Distribution Width 15.0 H Platelet Count 150 Mean Platelet Volume 11.0 H Neutrophils % 71.8 Lymphocytes % 17.4 Monocytes % 6.2 Eosinophils % 2.8 Basophils % 0.9 Nucleated Red Blood Cells % 0.0 Neutrophils # 4.9 Lymphocytes # 1.2 Monocytes # 0.4 Eosinophils # 0.2 Basophils # 0.1 Nucleated Red Blood Cells # 0.0 Sodium Level 130 L Potassium Level 3.7 Chloride Level 90 L Carbon Dioxide Level 30 Anion Gap 14 Blood Urea Nitrogen 29 H Creatinine 0.77 Glucose Level 122 Calcium Level 8.8 Blood Gas Specimen Source Blood arterial Arterial Blood Date Drawn 09/03/2016 7:50:40 AM Arterial Blood pH (Temp corrected) 7.502 H Arterial Blood pCO2 (Temp correct) 38.3 Arterial Blood pO2 (Temp corrected) 66.0 L Arterial Blood HCO3 29.3 H Arterial Blood Base Excess 5.9 H Arterial Blood Oxygen Saturation 92.8 L Wai Test ACCEPTAB Arterial Blood Gas Puncture Site Left Radial Arterial Blood Carboxyhemoglobin 0.1 Arterial Blood Methemoglobin 0.5 Blood Gas A-a O2 Differential 608.7 H Oxyhemoglobin Percent 92.2 L Total Hemoglobin 20.0 H Blood Gas Temperature 37.0 Blood Gas Modality HFNC FiO2 100.0 Blood Gas Notified Whom JLD Blood Gas Notified Time 09/03/2016 8:18:13 AM Medications Medications Current Medications Acetaminophen (Tylenol Tab) 650 mg Q4H PRN PO PAIN AND OR ELEVATED TEMP Last administered on 08/31/16 23:10; Admin Dose 650 MG; Start 08/29/16 at 15:30 Enoxaparin Sodium (Lovenox) 30 mg DAILY SC Last administered on 09/03/16 09:22 ; Admin Dose 30 MG; Start 08/30/16 at 09:00 Carvedilol (Coreg) 3.125 mg BID PO Last administered on 09/03/16 09:15; Admin Dose 3.125 MG; Start 08/29/16 at 21:00 Ondansetron HCl (Zofran Inj) 4 mg Q6H PRN IV NAUSEA AND/OR VOMITING; Start 08/29 at 15:30 Morphine Sulfate (morphine) 2 mg Q4H PRN IM SEVERE PAIN LEVEL 7-10; Start at 15:30 Aspirin (Aspirin) 81 mg DAILY PO Last administered on 09/03/16 09:09; Admin Dose 81 MG; Start 08/30/16 at 09:00 Levofloxacin (Levaquin) 500 mg DAILY@06 PO Last administered on 09/03/16 05:42 ; Admin Dose 500 MG; Start 08/31/16 at 14:00 Pantoprazole (Protonix Tab) 40 mg DAILY@06 PO Last administered on 09/03/16 05 :42; Admin Dose 40 MG; Start 09/01/16 at 06:00 Potassium Chloride (Klor-Con 20) 20 meq BID PO Last administered on 09/03/16 13:21; Admin Dose 20 MEQ; Start 09/03/16 at 13:00 Atorvastatin Calcium (Lipitor) 10 mg HS PO ; Start 09/03/16 at 21:00 JOSE L BLAKE Sep 03, 2016 13:44
--- NOTE | 2016-09-03 17:19 | PN ---
DATE: 09/03/2016 SUBJECTIVE: Patient is awake on high flow oxygen in no distress. No fevers. LABORATORY: WBC 6.8, platelets 116, no shift, no bands. BUN 29, creatinine 0.77. MICROBIOLOGY: All cultures negative. DIAGNOSTICS: Chest x-ray revealed improved pulmonary edema on 08/31/2016. ANTIMICROBIALS: He is on oral Levaquin. PHYSICAL EXAMINATION: GENERAL: This is a well-developed, elderly man who is awake, in no distress. HEENT: Head atraumatic, normocephalic. Sclerae anicteric. Buccal mucosa dry. NECK: Supple. CHEST: Rise symmetrical. Breath sounds diminished at the bases. HEART: S1, S2. ABDOMEN: Soft, bowel tones present. EXTREMITIES: Without cyanosis. ASSESSMENT: 1. Acute hypoxemic respiratory failure. 2. Pneumonia. 3. History of hypertension. 4. Questionable pulmonary fibrosis. 5. Pulmonary edema. PLAN: The patient remains stable. Still with significant hypoxemia; however, per pulmonary note radiographically improving. We will continue him on current regimen in regards to antibiotics. Dictated By: JIGNESH RIVERA LIVE IN HOUSEKEEPER NANNY for THUAN DOSHI/DONYA Conf#: [id number] DID#: [id number] MTDD
--- NOTE | 2016-09-03 19:09 | PN ---
Date/Time of Note Date/Time of Note DATE: 09/03/16 TIME: 19:03 Assessment/Plan VTE Prophylaxis VTE Prophylaxis Intervention: SCD's Lines/Catheters IV [facility] Saline Lock Urinary Cath still in place: No Assessment/Plan Assessment/Plan - Community-acquired pneumonia. Continue vancomycin and cefepime. Dr. Duarte is following patient in infection disease consultation. - Acute respiratory distress secondary to pneumonia and CHF. Continue patient on BiPAP. Dr. Truong is following in pulmonology consultation. - Diastolic congestive heart failure with exacerbation. Continue Lasix. Monitor electrolytes. Dr. Pino is following in cardiology consultation. - Mild cardiomegaly with ejection fraction of 65% . Continue sequential compression device for deep venous thrombosis prophylaxis and Protonix for peptic ulcer disease prophylaxis. Further recommendations based on clinical course. For Manzo evaluation. Plan of care discussed with Dr. Austin. Subjective 24 Hr Interval Summary Free Text/Dictation NAD, on high flow O2. Feels better, daughter at bed side. CT was cancelled today due to patient being on high flow oxygen. dw staff. ENT: no complaints Respiratory: shortness of breath Cardiovascular: no complaints Gastrointestinal: no complaints Genitourinary: no complaints Musculoskeletal: no complaints Skin: no complaints Neurologic: no complaints Endocrine: no complaints Lymphatic: no complaints Psychological: no complaints Immunologic: no complaints Exam/Review of Systems Vital Signs Vitals Vital Signs Date Time Temp Pulse Resp B/P Pulse Ox O2 Delivery O2 Flow Rate FiO2 09/03/16 16:40 97.7 93 19 123/72 93 09/03/16 14:38 100 09/03/16 08:57 Nasal Cannula 09/02/16 22:42 15.0 Intake and Output 09/02/16 09/02/16 09/03/16 15:00 23:00 07:00 Intake Total 600 ml Output Total 2000 ml Balance -1400 ml Exam Constitutional: alert, well developed Psych: nl mood/affect Results Result Diagram: 09/03/16 0557 09/03/16 0557 Results 24 hrs Laboratory Tests Test 09/03/16 05:57 09/03/16 07:00 White Blood Count 6.8 Red Blood Count 5.13 Hemoglobin 14.4 Hematocrit 42.3 Mean Corpuscular Volume 82.5 Mean Corpuscular Hemoglobin 28.1 L Mean Corpuscular Hemoglobin Concent 34.0 Red Cell Distribution Width 15.0 H Platelet Count 150 Mean Platelet Volume 11.0 H Neutrophils % 71.8 Lymphocytes % 17.4 Monocytes % 6.2 Eosinophils % 2.8 Basophils % 0.9 Nucleated Red Blood Cells % 0.0 Neutrophils # 4.9 Lymphocytes # 1.2 Monocytes # 0.4 Eosinophils # 0.2 Basophils # 0.1 Nucleated Red Blood Cells # 0.0 Sodium Level 130 L Potassium Level 3.7 Chloride Level 90 L Carbon Dioxide Level 30 Anion Gap 14 Blood Urea Nitrogen 29 H Creatinine 0.77 Glucose Level 122 Calcium Level 8.8 Blood Gas Specimen Source Blood arterial Arterial Blood Date Drawn 09/03/2016 7:50:40 AM Arterial Blood pH (Temp corrected) 7.502 H Arterial Blood pCO2 (Temp correct) 38.3 Arterial Blood pO2 (Temp corrected) 66.0 L Arterial Blood HCO3 29.3 H Arterial Blood Base Excess 5.9 H Arterial Blood Oxygen Saturation 92.8 L Wai Test ACCEPTAB Arterial Blood Gas Puncture Site Left Radial Arterial Blood Carboxyhemoglobin 0.1 Arterial Blood Methemoglobin 0.5 Blood Gas A-a O2 Differential 608.7 H Oxyhemoglobin Percent 92.2 L Total Hemoglobin 20.0 H Blood Gas Temperature 37.0 Blood Gas Modality HFNC FiO2 100.0 Blood Gas Notified Whom JLD Blood Gas Notified Time 09/03/2016 8:18:13 AM Medications Medications Current Medications Acetaminophen (Tylenol Tab) 650 mg Q4H PRN PO PAIN AND OR ELEVATED TEMP Last administered on 08/31/16 23:10; Admin Dose 650 MG; Start 08/29/16 at 15:30 Enoxaparin Sodium (Lovenox) 30 mg DAILY SC Last administered on 09/03/16 09:22 ; Admin Dose 30 MG; Start 08/30/16 at 09:00 Carvedilol (Coreg) 3.125 mg BID PO Last administered on 09/03/16 09:15; Admin Dose 3.125 MG; Start 08/29/16 at 21:00 Ondansetron HCl (Zofran Inj) 4 mg Q6H PRN IV NAUSEA AND/OR VOMITING; Start 08/29 at 15:30 Morphine Sulfate (morphine) 2 mg Q4H PRN IM SEVERE PAIN LEVEL 7-10; Start at 15:30 Aspirin (Aspirin) 81 mg DAILY PO Last administered on 09/03/16 09:09; Admin Dose 81 MG; Start 08/30/16 at 09:00 Levofloxacin (Levaquin) 500 mg DAILY@06 PO Last administered on 09/03/16 05:42 ; Admin Dose 500 MG; Start 08/31/16 at 14:00 Pantoprazole (Protonix Tab) 40 mg DAILY@06 PO Last administered on 09/03/16 05 :42; Admin Dose 40 MG; Start 09/01/16 at 06:00 Potassium Chloride (Klor-Con 20) 20 meq BID PO Last administered on 09/03/16 13:21; Admin Dose 20 MEQ; Start 09/03/16 at 13:00 Atorvastatin Calcium (Lipitor) 10 mg HS PO ; Start 09/03/16 at 21:00 CHARITY DUKE Sep 03, 2016 19:09
[2016-09-03] MEDS ORDERED: ATORVASTATIN 10 MG TAB PO SCH (21:00)
[2016-09-03] MEDS: GUAIFENESIN/CODEINE 5ML CUP PO PRN (21:40)
[2016-09-04] VITALS (11 sets, daily range): BP systolic 112–130; BP diastolic 67–86; PULSE 82–101; RESP 19–20
[2016-09-04] MEDS: ALBUTEROL/IPRATROPIUM (NEB) 3 ML AMP HHN PRN ×3 (05:39→15:12)
[2016-09-04] MEDS: LEVOFLOXACIN 500 MG TAB PO SCH (05:59)
[2016-09-04] MEDS: PANTOPRAZOLE (EC) 40 MG TAB PO SCH (05:59)
[2016-09-04] MEDS: FUROSEMIDE 40 MG INJ IV SCH ×2 (05:59→17:25)
[2016-09-04] MEDS: GUAIFENESIN/CODEINE 5ML CUP PO PRN ×3 (06:05→18:40)
[2016-09-04 07:52] LABS: ADD SCAN DIFF NO
[2016-09-04 07:55] LABS: BASOPHIL # 0.1 10^3/ul (0.0-0.1); BASOPHILS % 0.8 % (0.0-2.0); EOSINOPHILS # 0.1 10^3/ul (0.0-0.5); HEMATOCRIT 43.9 % (42.0-52.0); HEMOGLOBIN 14.7 g/dl (14.0-18.0); LYMPHOCYTES # 1.1 10^3/ul (0.8-2.9); LYMPHOCYTES % 16.4 % (15.0-51.0); MEAN CORPUSCULAR HEMOGLOBIN 27.6 pg (29.0-33.0); MEAN CORPUSCULAR HGB CONC 33.5 g/dl (32.0-37.0); MEAN CORPUSCULAR VOLUME 82.5 fl (82.0-101.0); MEAN PLATELET VOLUME 11.8 fl (7.4-10.4); MONOCYTE # 0.4 10^3/ul (0.3-0.9); MONOCYTES % 5.5 % (0.0-11.0); NEUTROPHIL # 4.8 10^3/ul (1.6-7.5); NEUTROPHILS % 74.7 % (39.0-77.0); PLATELET COUNT 155 10^3/UL (140-415); RED BLOOD COUNT 5.32 10^6/ul (4.70-6.10); RED CELL DISTRIBUTION WIDTH 15.2 % (11.5-14.5); WHITE BLOOD COUNT 6.4 10^3/ul (4.8-10.8)
[2016-09-04 08:15] LABS: CALCIUM 9.5 mg/dl (8.4-10.2); CREATININE 0.82 mg/dl (0.61-1.24); POTASSIUM 3.7 mmol/L (3.5-5.1)
[2016-09-04] MEDS: POTASSIUM CHLORIDE (SR) 20 MEQ TAB PO SCH (08:45)
[2016-09-04] MEDS: ASPIRIN 81 MG TAB PO SCH (08:45)
[2016-09-04] MEDS: ENOXAPARIN 30 MG/0.3 ML SYG SC SCH (08:48)
--- NOTE | 2016-09-04 10:24 | CONS ---
Date/Time of Note Date/Time of Note DATE: 09/04/16 TIME: 10:22 Assessment/Plan Assessment/Plan Additional Assessment/Plan Assessment recommendations; 1. Patient admitted with severe shortness of breath due to CHF was severely hypertensive as well. 2. Chest x-ray findings are indicative of possible underlying pulmonary fibrosis. 3. Rule out superimposed pneumonia. Continue current treatment. Awaiting CT of the chest. Further recommendations to be made once CT of the chest is done. Consultation Date/Type/Reason Admit Date/Time Aug 28, 2016 at 09:31 Initial Consult Date 08/28/16 Type of Consultation: Pulmonary 24 HR Interval Summary Free Text/Dictation Patient condition is stable. Still requiring high flow FiO2. According to her shortness of breath is gradually improving patient does complain of significant dyspnea on exertion. But denies any hemoptysis, chest pain fever chills. General exam; elderly male, currently in no distress awake and alert. Exam/Review of Systems Vital Signs Vitals Vital Signs Date Time Temp Pulse Resp B/P Pulse Ox O2 Delivery O2 Flow Rate FiO2 09/04/16 09:18 93 100 09/04/16 08:27 94 09/04/16 07:26 97.7 19 118/76 09/03/16 20:24 15.0 09/03/16 08:57 Nasal Cannula Intake and Output 09/03/16 09/03/16 09/04/16 15:00 23:00 07:00 Intake Total 600 ml 400 ml Balance 600 ml 400 ml Exam H EENT exam is; supple neck, no JVD. No lymphadenopathy. Midline trachea. No thyromegaly. Patient is edentulous. Pupils are small bilaterally. No neck masses. Chest examination OR: Diminished breath sound bilaterally. With very minimal bilateral crackles as well. S1-S2 audible, no murmurs. Regular rhythm. Abdomen examination; soft, nontender. No organomegaly. Bowel sounds audible. Extremity exam; trace peripheral edema. Pulses 1+ bilaterally. No clubbing. SUPERVISING CHEF examination; no focal deficit. Results Result Diagram: 09/04/16 0645 09/04/16 0645 Results 24 hrs Laboratory Tests Test 09/04/16 06:45 White Blood Count 6.4 Red Blood Count 5.32 Hemoglobin 14.7 Hematocrit 43.9 Mean Corpuscular Volume 82.5 Mean Corpuscular Hemoglobin 27.6 L Mean Corpuscular Hemoglobin Concent 33.5 Red Cell Distribution Width 15.2 H Platelet Count 155 Mean Platelet Volume 11.8 H Neutrophils % 74.7 Lymphocytes % 16.4 Monocytes % 5.5 Eosinophils % 2.0 Basophils % 0.8 Nucleated Red Blood Cells % 0.0 Neutrophils # 4.8 Lymphocytes # 1.1 Monocytes # 0.4 Eosinophils # 0.1 Basophils # 0.1 Nucleated Red Blood Cells # 0.0 Sodium Level 130 L Potassium Level 3.7 Chloride Level 89 L Carbon Dioxide Level 31 Anion Gap 14 Blood Urea Nitrogen 29 H Creatinine 0.82 Glucose Level 149 Calcium Level 9.5 Medications Medications Current Medications Acetaminophen (Tylenol Tab) 650 mg Q4H PRN PO PAIN AND OR ELEVATED TEMP Last administered on 08/31/16 23:10; Admin Dose 650 MG; Start 08/29/16 at 15:30 Enoxaparin Sodium (Lovenox) 30 mg DAILY SC Last administered on 09/04/16 08:48 ; Admin Dose 30 MG; Start 08/30/16 at 09:00 Carvedilol (Coreg) 3.125 mg BID PO Last administered on 09/04/16 08:45; Admin Dose 3.125 MG; Start 08/29/16 at 21:00 Ondansetron HCl (Zofran Inj) 4 mg Q6H PRN IV NAUSEA AND/OR VOMITING; Start 08/29 at 15:30 Morphine Sulfate (morphine) 2 mg Q4H PRN IM SEVERE PAIN LEVEL 7-10; Start at 15:30 Aspirin (Aspirin) 81 mg DAILY PO Last administered on 09/04/16 08:45; Admin Dose 81 MG; Start 08/30/16 at 09:00 Levofloxacin (Levaquin) 500 mg DAILY@06 PO Last administered on 09/04/16 05:59 ; Admin Dose 500 MG; Start 08/31/16 at 14:00 Pantoprazole (Protonix Tab) 40 mg DAILY@06 PO Last administered on 09/04/16 05 :59; Admin Dose 40 MG; Start 09/01/16 at 06:00 Potassium Chloride (Klor-Con 20) 20 meq BID PO Last administered on 09/04/16 08:45; Admin Dose 20 MEQ; Start 09/03/16 at 13:00 Atorvastatin Calcium (Lipitor) 10 mg HS PO Last administered on 09/03/16 20:14 ; Admin Dose 10 MG; Start 09/03/16 at 21:00 Guaifenesin/ Codeine Phosphate (Robitussin Ac Liquid Cup) 10 ml Q4H PRN PO COUGH Last administered on 09/04/16 06:05; Admin Dose 10 ML; Start 09/03/16 at 22:00 JOSE L BLAKE Sep 04, 2016 10:24
--- NOTE | 2016-09-04 14:05 | PN ---
DATE: 09/04/2016 SUBJECTIVE: No acute changes. The patient is awake, still on high-flow oxygen, complaining of coug h mostly at night. He is in no distress. at bedside. No fevers. LABORATORY DATA: WBC 6.4, no shift, no bands. BUN 29, creatinine 0.82. ANTIMICROBIALS: Levaquin. PHYSICAL EXAMINATION: GENERAL: Well-developed, elderly man in no distress. HEENT: Head atraumatic, normocephalic. Sclerae anicteric. Buccal mucosa dry. NECK: Supple. CHEST: Rise symmetrical. Breath sounds diminished to bases. HEART: S1, S2. ABDOMEN: Soft. Bowel sounds present. EXTREMITIES: Without cyanosis. ASSESSMENT: 1. Acute hypoxemic respiratory failure, still on high-flow oxygen. 2. Pneumonia. 3. Questionable pulmonary fibrosis. 4. Hyponatremia. PLAN: The patient remains unchanged. He is on Levaquin day #5. Pulmonary follows him. Pending CT of the chest. Dictated By: JIGNESH RIVERA ANESTHESIOLOGY PHYSICIAN for THUAN DOSHI/DONYA Conf#: [id number] DID#: [id number]
--- NOTE | 2016-09-04 18:57 | RADRPT ---
PROCEDURE: CT Chest without contrast (high resolution). CLINICAL INDICATION: Shortness of breath. Possible pulmonary fibrosis TECHNIQUE: High-resolution CT scan of the chest without contrast was performed on a high-resolutio n multidetector CT scanner. The patient was scanned without intravenous contrast. Coronal and sagi ttal reformatted images were obtained from the axial source images. Patient was examined during bot h deep inspiration and full expiration. Images were reviewed on a high resolution PACS workstation. The total exam CTDI equals 16.26 and the total exam DLP equals 529.08 mGy-cm. COMPARISON: Chest x-rays 05/20/2014 and 08/31/2016 COMPARISON: None. FINDINGS: Lungs, airway and pleura: The trachea and bronchi are patent as well as normal in caliber. Bilater al lower lobe and traction type bronchiectasis is present with honeycombing of the lung bases, inter lobular and interlobular septal thickening. Subpleural bullous changes are seen throughout the lung s. There is mosaic ground-glass attenuation predominate within the upper lobes unable to exclude jarrett perimposed bronchiolitis. There is no mass or nodule. There is no difference between the inhalati on and exhalation series nor the prone and supine images. The pleural spaces are clear, without eff usions. Mediastinum, ysabel and cardiovascular: The heart is top normal in size. There is no evidence for pe ricardial effusion. The thoracic aorta is normal in caliber with mild atherosclerotic calcification . Mediastinal adenopathy is present day prevascular lymph node measures 11 mm in short axis. A rig ht paratracheal lymph node is approximately 10 mm in short axis. There is no evidence of hilar mass or adenopathy. The esophagus is normal in caliber. Osseous structures and musculoskeletal findings: Demineralization is present with severe anterior t horacic spondylosis. There is no evidence of acute osseous abnormality, lytic or blastic lesion. N o chest wall abnormalities are present. The axillary regions are unremarkable. Visualized upper abdomen: No abnormalities are identified. The adrenal glands are normal bilateral ly. RPTAT:HJJR IMPRESSION: 1. Basilar dominant anterior septal and intraseptal lobular thickening with honeycombing and tracti on bronchiectasis most compatible with idiopathic pulmonary fibrosis or usual interstitial pneumonia with reactive type mediastinal adenopathy. 2. Mosaic distribution of ground-glass opacities with upper lobe predominance cannot exclude an sen ment of superimposed bronchiolitis. No pleural effusions are present. Pito Gotti Physician Date Time Electronically viewed and signed by Pito Gotti Physician on 09/04/2016 18:57 JR/
--- NOTE | 2016-09-04 19:20 | PDOCDIS ---
Discharge Instructions CONDITION Patient Condition: Fair HOME CARE INSTRUCTIONS: Special Diet: Cardiac ACTIVITY: Activity Restrictions: Slowly Increase Activity Rest between Activity Avoid heavy lifting Do not operate Machinery Do not operate Power Tool Avoid Heavy Housework Bathing Restrictions: Sponge Bath CHARITY DUKE Sep 04, 2016 19:20
--- NOTE | 2016-09-04 20:11 | DS ---
Date/Time of Note Date/Time of Note DATE: 09/04/16 TIME: 20:11 Discharge Summary Admission/Discharge Info Admit Date/Time Aug 28, 2016 at 09:31 Discharge Date/Time Hospital Course ID PROGRESS NOTE CURRENT ABX DAY #6=> Levaquin 24H INTERVAL SUMMARY * Seen earlier today while he was eating dinner -- feeling much better, O2 via NC * No coughing, no fevers PHYSICAL EXAMINATION: GENERAL: VSS, NAD, Afebrile HEENT: Unremarkable NECK: Supple, trachea midline. CHEST: Rise symmetrical, without dyspnea on observation HEART: Pulse RRR ABDOMEN: Soft EXTREMITIES: Warm ID ASSESSMENT 71 yo M admit 08/28/16 with: 1. Hypoxic respiratory failure w/ suspected community acquired bronchopneumonia with productive cough, fever on admission 2. SIRS on admission w/fevers=> blood Cx (-) 3. Pulmonary edema=> CHF w/mild cardiomegaly on CXR 4. QUERY COPD exacerbation playing a role w/long-term tobaccoism and interstitial lung disease per ABD X-ray 5. Questionable bowel obstruction w/nausea on admission => resolved, asymptomatic 6. ETOH=> Daily beer INVASIVES: PIV ABX ALLERGY: KNDA CURRENT ABX: CURRENT ABX DAY #6=> Levaquin S/P vancomycin and cefepime. S/P Zosyn in ED ID RECOMMENDATIONS 1. Continue current ABX 2. Observe over the weekend on ABX -> When stable anticipate anticipate DC ABX Saturday if clinically improved . . Home Meds Discontinued Scripts Hydrocodone/Acetaminophen ([place] 5-325 Tablet) 1 Each Tablet, 1 TAB PO Q6H Y for PAIN, #7 TAB Prov:LOVE JACK PA-C 08/11/16 Amoxicillin/Potassium Clav (Amox-Clav 875-125 mg Tablet) 875-125 mg Tab, 1 TAB PO BID for 7 Days, #14 TAB Prov:LOVE JACK PA-C 08/11/16 Ibuprofen* (Motrin*) 800 Mg Tab, 800 MG PO Q6, #30 TAB Prov:LOVE JACK PA-C 08/11/16 Benazepril Hcl* (Lotensin*) 20 Mg Tablet, 20 MG PO DAILY, #30 TAB Prov:LYNN VAIL MD 07/29/16 Ibuprofen* (Motrin*) 400 Mg Tab, 400 MG PO Q6, #16 TAB Prov:LYNN VAIL MD 07/29/16 Levofloxacin* (Levaquin*) 500 Mg Tablet, 500 MG PO DAILY for 7 Days, TAB Prov:LYNN VAIL MD 07/29/16 Albuterol Sulfate (Albuterol Sulfate) 2.5 Mg/0.5 Ml Vial.neb, 2.5 MG IH Q4H Y for SHORTNESS OF BREATH, #1 VIAL Prov:BRANDON MCDONOUGH. 02/13/16 Dextromethorphan Hbr (Tussin Cough) 15 Mg Capsule, 15 MG PO Q6H Y for COUGH, # 30 CAP Prov:BRANDON MCDONOUGH . 02/13/16 Azithromycin* (Azithromycin*) 250 Mg Tablet, 250 MG PO DAILY, #4 TAB Prov:BRANDON MCDONOUGH . 02/13/16 Amoxicillin/Potassium Clav (Amox-Clav 875-125 mg Tablet) 875-125 mg Tab, 1 TAB PO BID for 8 Days, #16 TAB Prov:BRANDON MCDONOUGH. 02/13/16 Pending Labs Laboratory Tests Test 09/04/16 06:45 White Blood Count 6.410^3/ul (4.8-10.8) Red Blood Count 5.3210^6/ul (4.70-6.10) Hemoglobin 14.7g/dl (14.0-18.0) Hematocrit 43.9% (42.0-52.0) Mean Corpuscular Volume 82.5fl (82.0-101.0) Mean Corpuscular Hemoglobin 27.6pg (29.0-33.0) Mean Corpuscular Hemoglobin Concent 33.5g/dl (32.0-37.0) Red Cell Distribution Width 15.2% (11.5-14.5) Platelet Count 58726^3/UL (140-415) Mean Platelet Volume 11.8fl (7.4-10.4) Neutrophils % 74.7% (39.0-77.0) Lymphocytes % 16.4% (15.0-51.0) Monocytes % 5.5% (0.0-11.0) Eosinophils % 2.0% (0.0-7.0) Basophils % 0.8% (0.0-2.0) Nucleated Red Blood Cells % 0.0/100WBC (0.0-0.0) Neutrophils # 4.810^3/ul (1.6-7.5) Lymphocytes # 1.110^3/ul (0.8-2.9) Monocytes # 0.410^3/ul (0.3-0.9) Eosinophils # 0.110^3/ul (0.0-0.5) Basophils # 0.110^3/ul (0.0-0.1) Nucleated Red Blood Cells # 0.010^3/ul (0.0-0.0) Sodium Level 130mmol/L (135-144) Potassium Level 3.7mmol/L (3.5-5.1) Chloride Level 89mmol/L (97-110) Carbon Dioxide Level 31mmol/L (21-31) Anion Gap 14 (8-16) Blood Urea Nitrogen 29mg/dl (7-20) Creatinine 0.82mg/dl (0.61-1.24) Glucose Level 149mg/dl (70-220) Calcium Level 9.5mg/dl (8.4-10.2) CHARITY DUKE Sep 04, 2016 20:11
== END 2016-09-04 20:48 | DRG 291 ==
LOC: E/R 08:54 → MS2 09:31 → TEL 16:30
PROVIDERS: ADMIT Internal Medicine; ATTEND Internal Medicine
PROC: 5A09357 Assistance with Respiratory Ventilation, Less than 24 Consecutive Hours, Continuous Positive Airway Pressure (ICD-10-PCS; principal; 2016-09-02)
DX: I50.33 Acute on chronic diastolic (congestive) heart failure (principal); J96.01 Acute respiratory failure with hypoxia; J18.9 Pneumonia, unspecified organism; K56.60 Unspecified intestinal obstruction; J18.0 Bronchopneumonia, unspecified organism; J81.1 Chronic pulmonary edema; R65.10 Systemic inflammatory response syndrome (SIRS) of non-infectious origin without acute organ dysfunction; R71.0 Precipitous drop in hematocrit; E87.1 Hypo-osmolality and hyponatremia; R10.9 Unspecified abdominal pain; Y95 Nosocomial condition; I10 Essential (primary) hypertension; Z72.89 Other problems related to lifestyle; I51.7 Cardiomegaly; Z87.891 Personal history of nicotine dependence
CPT/HCPCS: 36415; 36600; 71010; 71250; 74000; 80048; 80053; 80202; 81001; 81003; 82550; 82553; 82803; 82962; 83605; 83735; 83880; 84484; 85025; 85610; 85730; 87040; 87086; 93005; 93306; 94640; 94660; 94664; 96365; 96375; J1940; C9113; J0692; J1650; J3370; J3480; J7030; J7050

== ENCOUNTER 2016-12-11 17:47 | Inpatient (IN) | payer MEDICARE, MEDICAID ==
[~2016-12-11] VITALS: Ht 165.1 cm; Wt 61.3 kg
[2016-12-11] VITALS (10 sets, daily range): BP systolic 89–128; BP diastolic 52–72; PULSE 103–111; RESP 22–26
[2016-12-11] MEDS: SOD CHLORIDE 0.9% 1,000 ML IV SCH (22:19)
[2016-12-11] MEDS ORDERED: LORAZEPAM 2 MG INJ IV PRN (23:00)
[2016-12-11] MEDS ORDERED: NEOMYC/POLYMYX/BACIT/HC 15 GM OINT TOP ONE (23:00)
[2016-12-11] MEDS ORDERED: DOCUSATE SODIUM 10 MG/ML (10ML CUP) GTB PRN (23:00)
[2016-12-11] MEDS ORDERED: ACETAMINOPHEN 650MG/20.3ML CUP GTB PRN (23:00)
[2016-12-11] MEDS ORDERED: QUETIAPINE 25 MG TAB GTB PRN (23:00)
[2016-12-11] MEDS ORDERED: ONDANSETRON 4 MG INJ IV PRN (23:00)
[2016-12-12] VITALS (37 sets, daily range): BP systolic 83–153; BP diastolic 54–102; PULSE 89–113; RESP 18–36
[2016-12-12] MEDS ORDERED: MEROPENEM 1 GM/50ML(PMX) 50 ML IVPB SCH
[2016-12-12] MEDS: METOCLOPRAMIDE 10 MG TAB GTB SCH ×4 (00:39→18:06)
[2016-12-12] MEDS: OXCARBAZEPINE 300 MG TAB PO SCH ×3 (00:39→20:31)
[2016-12-12] MEDS: morphine 4 MG/ML VIAL IV PRN ×2 (00:40→14:51)
[2016-12-12] MEDS: LINEZOLID 600 MG/D5W (PMX) 300 ML IVPB SCH ×3 (01:39→22:04)
[2016-12-12] MEDS ORDERED: IPRATROPIUM (NEB) 0.5 MG/2.5 ML AMP HHN SCH (02:00)
[2016-12-12] MEDS ORDERED: ALBUTEROL 0.083% (NEB) 2.5 MG/3 ML AMP HHN SCH (02:00)
[2016-12-12] MEDS: ALBUTEROL 18 GM INHALER INH SCH ×4 (02:11→19:12)
[2016-12-12] MEDS: IPRATROPIUM (HFA) 12.9 GM INHALER INH SCH ×4 (02:11→19:11)
[2016-12-12 05:25] LABS: ADD SCAN DIFF NO
[2016-12-12 05:32] LABS: BASOPHIL # 0.1 10^3/ul (0.0-0.1); BASOPHILS % 0.7 % (0.0-2.0); EOSINOPHILS # 1.9 10^3/ul (0.0-0.5); HEMATOCRIT 26.6 % (42.0-52.0); HEMOGLOBIN 7.9 g/dl (14.0-18.0); LYMPHOCYTES # 1.4 10^3/ul (0.8-2.9); LYMPHOCYTES % 15.3 % (15.0-51.0); MEAN CORPUSCULAR HEMOGLOBIN 27.7 pg (29.0-33.0); MEAN CORPUSCULAR HGB CONC 29.7 g/dl (32.0-37.0); MEAN CORPUSCULAR VOLUME 93.3 fl (82.0-101.0); MEAN PLATELET VOLUME 10.7 fl (7.4-10.4); MONOCYTE # 0.5 10^3/ul (0.3-0.9); MONOCYTES % 5.9 % (0.0-11.0); NEUTROPHIL # 5.1 10^3/ul (1.6-7.5); NEUTROPHILS % 56.5 % (39.0-77.0); PLATELET COUNT 299 10^3/UL (140-415); RED BLOOD COUNT 2.85 10^6/ul (4.70-6.10); RED CELL DISTRIBUTION WIDTH 18.3 % (11.5-14.5)
[2016-12-12 06:04] LABS: EOSINOPHILS % 20.8 % (0.0-7.0)
[2016-12-12] MEDS: LANSOPRAZOLE 30 MG CAP GTB SCH (06:17)
[2016-12-12 08:01] LABS: AADO2 Arterial 227.5 mmHg (7.0-24.0); Allen Test ACCEPTAB; Arterial Base Excess 2.8 mmol/L (-3.0-3); Arterial COHb 0.6 % (0.0-3.0); Arterial Fraction of Oxyhgb 98.1 % (93.0-99.0); Arterial HCO3 27.5 mmol/L (22.0-26.0); Arterial MetHb 0.4 % (0.0-1.5); Arterial Total Hemglobin 8.3 g/dl (12.0-18.0); MODE VENT - PC
[2016-12-12] MEDS: MAGNESIUM HYDROXIDE 30ML CUP PO SCH ×4 (08:20→20:32)
[2016-12-12] MEDS: NYSTATIN SUSP 5 ML CUP PO SCH ×3 (08:45→20:32)
[2016-12-12] MEDS: BACITRACIN/POLYMYXIN 28.35 GM OINT TOP SCH ×2 (08:45→20:32)
[2016-12-12] MEDS: MICONAZOLE 2% 30 GM CR TOP SCH ×2 (08:45→20:33)
[2016-12-12] MEDS: METOPROLOL 25 MG TAB GTB SCH ×3 (08:45→20:31)
[2016-12-12] MEDS: THIAMINE 100 MG TAB GTB SCH (08:45)
[2016-12-12] MEDS: L ACIDOPHIL/B LACTIS/B LONGUM CAPSULE PO SCH ×3 (08:45→20:31)
[2016-12-12] MEDS: FOLIC ACID 1 MG TAB GTB SCH (08:45)
[2016-12-12] MEDS: COLISTIMETHATE (25 MG/ML INHAL SYG) NEB SCH ×2 (09:00→19:12)
[2016-12-12 09:01] LABS: CALCIUM 9.8 mg/dl (8.4-10.2); CREATININE 2.32 mg/dl (0.61-1.24)
--- NOTE | 2016-12-12 09:21 | CONS ---
Date/Time of Note Date/Time of Note DATE: 12/12/16 TIME: 09:17 Assessment/Plan Assessment/Plan Chief Complaint/Hosp Course assessment/impression - possible, recurrent sepsis - underlying pulmonary fibrosis - VDRF s/p trach 10/09/2016 - dysphagia s/p PEG placement 10/09/2016 - CARLOS - encephalopathy - somewhat improved - s/p recurrent sepsis due to HCAP and UTI - h/o HCAP due to MDR acinetobacter and ESBL E. Coli - colonization with ESBL and CRE - h/o recurrent UTI due to ESBL E. Coli - funguria; Robin replaced on o11/13/2016 - h/o bacteremia 10/28/2016 due to enterococcus faecium. Midline was dc'd - s/p severe sepsis due to UTI, prob aspiration after hematemesis and multiple intubation events, and HCAP - s/p acute UGIB of unclear etiology; s/p EGD 10/01/2016 showing no active bleeding site - HLD and fatty liver - h/o alcoholism - chronic diastolic HF - diverticulosis, seen on CT at [facility] - severe protein calorie malnutrition - thrush - treated with nystatin - h/o fall and trauma to R foot prior to recent admission. No fracture seen on plain film recommendations: - I recommend and have ordered: blood cultures x2, urinalysis and urine culture , respiratory culture, lactic acid, procalcitonin and CXR - continue empiric linezolid, meropenem (originally started on 12/07/2016) and nebulized colistin. Will adjust his antibiotics based on the final culture results. management d/w Pt's and RN the critical care time I took to care for this Pt today was from 1020 to 1100 Problems: Consultation Date/Type/Reason Admit Date/Time Dec 11, 2016 at 20:22 Date of Consultation: Dec 12, 2016 Type of Consultation: ID Reason for Consultation possible recurrent sepsis Referring Provider: MATTHEW CALDERON MD Hx of Present Illness This is a 71 yo male with underlying pulmonary fibrosis who was initially admitted at [facility] in 09/2016 with UGIB of unclear etiology. EGD did not show active bleeding site. He likely aspirated after hematemesis; he also developed UTI due to ESBL+E. coli. Pt eventually developed hypoxic respiratory failure and needed intubation. He failed weaning trials and received tracheostomy and PEG. He had a protracted course at [facility]: he developed pneumonia due to MDR acinetobacter and ESBL+E. coli, bacteremia due to enterococci. He received antibiotics for these and eventually transferred to [facility]. He had leukocytosis, and continued to have MDR acinetobacter and ESBL+E. coli. He was receiving empiric meropenem, linezolid and colistin. On 12/11/2016, Pt developed tachypenia and encephalopathy, and was transferred to ICU. Subjective hx not possible: pt non-verbal Past Medical History Medical History: GI bleed, renal disease, urinary tract infection, other ( diverticulosis) Past Surgical History Past Surgical Hx: other (PEG, trach placement) Social History Alcohol Use: heavy Smoking Status: Unknown if ever smoked Exam/Review of Systems Vital Signs Vitals Vital Signs Date Time Temp Pulse Resp B/P Pulse Ox O2 Delivery O2 Flow Rate FiO2 12/12/16 07:00 108 20 134/64 100 12/12/16 06:00 Mechanical Ventilator 12/12/16 05:27 70 12/12/16 04:00 99.0 Intake and Output 12/11/16 12/11/16 12/12/16 15:00 23:00 07:00 Intake Total 75 ml 875 ml Output Total 300 ml Balance 75 ml 575 ml Exam Constitutional: frail, non-verbal Psych: confusion Head: atraumatic, normocephalic, other (temporal wasting) Eyes: nl conjunctiva, nl lids ENMT: nl external ears & nose Neck: other (trach) Respiratory: crackles/rales Cardiovascular: nl pulses, regular rate and rhythm Gastrointestinal: non-tender, soft Musculoskeletal: nl extremities to inspection Extremities: normal pulses Results Result Diagram: 12/12/16 0450 12/12/16 0450 Results 24 hrs Laboratory Tests Test 12/12/16 04:50 12/12/16 07:00 White Blood Count 9.0 Red Blood Count 2.85 L Hemoglobin 7.9 L Hematocrit 26.6 L Mean Corpuscular Volume 93.3 Mean Corpuscular Hemoglobin 27.7 L Mean Corpuscular Hemoglobin Concent 29.7 L Red Cell Distribution Width 18.3 H Platelet Count 299 Mean Platelet Volume 10.7 H Neutrophils % 56.5 Lymphocytes % 15.3 Monocytes % 5.9 Eosinophils % 20.8 H Basophils % 0.7 Nucleated Red Blood Cells % 0.0 Neutrophils # 5.1 Lymphocytes # 1.4 Monocytes # 0.5 Eosinophils # 1.9 H Basophils # 0.1 Nucleated Red Blood Cells # 0.0 Sodium Level 143 Potassium Level 4.0 Chloride Level 101 Carbon Dioxide Level 30 Anion Gap 16 Blood Urea Nitrogen 78 H Creatinine 2.32 H Glucose Level 97 Calcium Level 9.8 Blood Gas Specimen Source Blood arterial Arterial Blood Date Drawn 12/12/2016 7:30:11 AM Arterial Blood pH (Temp corrected) 7.426 Arterial Blood pCO2 (Temp correct) 42.7 Arterial Blood pO2 (Temp corrected) 225.7 H Arterial Blood HCO3 27.5 H Arterial Blood Base Excess 2.8 Arterial Blood Oxygen Saturation 99.1 H Wai Test ACCEPTAB Arterial Blood Gas Puncture Site Right Radial Arterial Blood Carboxyhemoglobin 0.6 Arterial Blood Methemoglobin 0.4 Blood Gas A-a O2 Differential 227.5 H Oxyhemoglobin Percent 98.1 Total Hemoglobin 8.3 L Blood Gas Temperature 37.0 Blood Gas Respiration Rate 20.0 Blood Gas Actual Respiration Rate 25 Blood Gas Modality VENT - PC FiO2 70.0 Blood Gas Low PEEP Setting 5.0 Blood Gas Inspiratory Pressure 25.0 Blood Gas Notified Whom JLD Blood Gas Notified Time 12/12/2016 8:00:56 AM Medications Medications Current Medications Sodium Chloride (NS) 1,000 ml @ 75 mls/hr [id number] IV Last administered on 12/11t 22:19; Admin Dose 75 MLS/HR; Start 12/11/16 at 21:30 Acetaminophen (Tylenol Liquid) 650 mg Q6 PRN GTB PAIN AND OR ELEVATED TEMP; Start 12/11/16 at 23:00 Bacitracin/ Polymyxin B Sulfate (Polysporin Oint) 1 applic BID TOP ; Start 12/12 at 09:00 Clonidine (Catapres) 0.1 mg Q6H PRN PO ELEVATED SYSTOLIC BP; Start 12/11/16 at 23:00 Docusate Sodium (Colace Liquid Cup) 100 mg BID PRN GTB CONSTIPATION; Start at 23:00 Folic Acid (Folic Acid) 1 mg DAILY GTB ; Start 12/12/16 at 09:00 Lactobacillus Acidophilus (Florajen3 Capsule) 1 each TID PO ; Start 12/12/16 at 09:00 Lansoprazole (Prevacid) 30 mg DAILY@06 GTB Last administered on 12/12/16 06:17 ; Admin Dose 30 MG; Start 12/12/16 at 06:00 Lidocaine (Lidoderm) 1 patch DAILY TD ; Start 12/12/16 at 09:00 Lorazepam 2 mg 2 mg Q4 PRN IV AGITATION; Start 12/11/16 at 23:00 Meropenem/Sodium Chloride (Merrem 1 Gm/50 ml (Pmx)) 50 ml @ 100 mls/hr Q12 IVPB Last administered on 12/12/16 00:39; Admin Dose 100 MLS/HR; Start at 00:00 Metoprolol Tartrate (Lopressor) 25 mg TID GTB ; Start 12/12/16 at 09:00 Metoclopramide HCl (Reglan) 10 mg Q6 GTB Last administered on 12/12/16 06:17; Admin Dose 10 MG; Start 12/12/16 at 00:00 Miconazole Nitrate (Miconazole 2% Cr) 1 applic BID TOP ; Start 12/12/16 at 09:00 Morphine Sulfate (morphine) 4 mg Q4H PRN IV PAIN LEVEL 7-10 Last administered on 12/12/16 00:40; Admin Dose 4 MG; Start 12/11/16 at 23:00 Nystatin (Nystatin Susp) 5 ml TID PO ; Start 12/12/16 at 09:00 Ondansetron HCl (Zofran Inj) 4 mg Q6H PRN IV NAUSEA AND/OR VOMITING; Start at 23:00 Oxcarbazepine (Trileptal) 300 mg BID PO Last administered on 12/12/16 00:39; Admin Dose 300 MG; Start 12/11/16 at 23:00 Quetiapine Fumarate (Seroquel) 25 mg Q6 PRN GTB AGITATION; Start 12/11/16 at 23 :00 Thiamine HCl 100 mg 100 mg DAILY GTB ; Start 12/12/16 at 09:00 Linezolid (Zyvox 600mg/D5W (Pmx)) 300 ml @ 300 mls/hr Q12 IVPB Last administered on 12/12/16 01:39; Admin Dose 300 MLS/HR; Start 12/12/16 at 00:00 MADISON PIERRE M.D. Dec 12, 2016 09:21
--- NOTE | 2016-12-12 09:29 | RADRPT ---
PROCEDURE: Chest 1 views. CLINICAL INDICATION: Shortness of breath. TECHNIQUE: AP views of the chest was obtained. COMPARISON: December 07, 2016 FINDINGS: The heart is large. Tracheostomy tube is stable and appears in grossly appropriate location. Diffus e interstitial prominence in both lungs is unchanged. Superimposed patchy alveolar infiltrates thro ughout both lungs are stable. The osseous structures are osteopenic, but appear intact. IMPRESSION: Cardiomegaly . Stable diffuse interstitial prominence in both lungs. Stable superimposed patchy alveolar infiltrates in both lungs. RPTAT: AA .Micah Schwab MD, MD Date Time Electronically viewed and signed by .Micah Schwab MD, on 12/12/2016 09:28 .P/
[2016-12-12] MEDS: LIDOCAINE 5% PATCH TD SCH (11:05)
[2016-12-12] MEDS: SOD CHLORIDE 0.9% 1,000 ML IV SCH (11:12)
[2016-12-12 11:31] LABS: ALBUMIN 2.8 g/dl (3.3-4.9); CALCIUM 9.6 mg/dl (8.4-10.2); CREATININE 2.23 mg/dl (0.61-1.24)
[2016-12-12 11:32] LABS: ALBUMIN/GLOBULIN RATIO 0.66
--- NOTE | 2016-12-12 11:42 | HP ---
Date/Time of Note Date/Time of Note DATE: 12/12/16 TIME: 11:34 Assessment/Plan VTE Prophylaxis VTE Prophylaxis Intervention: SCD's Lines/Catheters IV Catheter Type (from Nrs): Peripheral IV Assessment/Plan Assessment/Plan -Possible recurrent sepsis, Dr. Laguerre is following an infection disease consultation. Continue antibiotics per ID, follow up on cultures and chest x- ray. -Acute on chronic respiratory failure, Dr. Souza is following in pulmonology consultation. Continue ventilatory support, breathing treatments, pulmonary toilet. -Pulmonary fibrosis -Chronic diastolic heart failure -Hyperlipidemia -History of upper GI bleed, status post EGD with no active bleeding noted -Dysphagia with PEG -Fatty liver -History of alcoholism Further recommendations based on clinical course. Plan of care discussed with Dr. Austin. HPI/ROS Admit Date/Time Admit Date/Time Dec 11, 2016 at 20:22 Hx of Present Illness The patient is a 71-year-old gentleman with pulmonary fibrosis and ventilator dependent respiratory failure with tracheostomy. Patient was hospitalized at [facility] for upper GI bleed of unclear etiology respiratory failure , healthcare associated pneumonia with MDR Acinetobacter ESBL E. coli, and an E. coli ESBL urinary tract infection. Patient underwent tracheostomy and G- tube placement and was transferred to [facility] for further care. Patient other comorbidities include fatty liver due to alcoholism, acute and chronic diastolic heart failure, atherosclerosis, diverticulosis without, functional quadriplegia, degenerative joint disease, hypertension. Last night patient developed tachypnea and tachycardia and was transferred to intensive care unit of [facility]. Patient's temperature admission was 100.2. No nausea vomiting diarrhea were reported. ROS 12 point review of system is negative unless mentioned in HPI PMH/Family/Social Past Medical History Medical History: congestive heart failure, diverticulitis, GERD, GI bleed, hypertension, other (Respiratory failure, dysphagia with PEG, pulmonary fibrosis , fatty liver) Past Surgical History Status post tracheostomy and status post G-tube placement status post EGD Family History Significant Family History: no pertinent family hx Social History Smoking Status: Unknown if ever smoked Exam/Review of Systems Vital Signs Vitals Vital Signs Date Time Temp Pulse Resp B/P Pulse Ox O2 Delivery O2 Flow Rate FiO2 12/12/16 08:00 106 12/12/16 07:00 20 134/64 100 12/12/16 06:00 Mechanical Ventilator 12/12/16 05:27 70 12/12/16 04:00 99.0 Intake and Output 12/11/16 12/11/16 12/12/16 15:00 23:00 07:00 Intake Total 75 ml 875 ml Output Total 300 ml Balance 75 ml 575 ml Exam Constitutional: frail, non-verbal Psych: confusion Head: atraumatic, normocephalic Neck: supple Respiratory: crackles/rales Cardiovascular: other (Tachycardic) Gastrointestinal: non-tender, other (G-tube), soft Musculoskeletal: nl extremities to inspection Extremities: normal pulses Neurological: nl mental status Skin: nl turgor Labs Result Diagram: 12/12/16 0450 12/12/16 0450 Medications Medications Current Medications Sodium Chloride (NS) 1,000 ml @ 75 mls/hr [id number] IV Last administered on 12/12 11:12; Admin Dose 75 MLS/HR; Start 12/11/16 at 21:30 Acetaminophen (Tylenol Liquid) 650 mg Q6 PRN GTB PAIN AND OR ELEVATED TEMP; Start 12/11/16 at 23:00 Bacitracin/ Polymyxin B Sulfate (Polysporin Oint) 1 applic BID TOP Last administered on 12/12/16 08:45; Admin Dose 1 APPLIC; Start 12/12/16 at 09:00 Clonidine (Catapres) 0.1 mg Q6H PRN PO ELEVATED SYSTOLIC BP; Start 12/11/16 at 23:00 Docusate Sodium (Colace Liquid Cup) 100 mg BID PRN GTB CONSTIPATION; Start at 23:00 Folic Acid (Folic Acid) 1 mg DAILY GTB Last administered on 12/12/16 08:45; Admin Dose 1 MG; Start 12/12/16 at 09:00 Lactobacillus Acidophilus (Florajen3 Capsule) 1 each TID PO Last administered on 12/12/16 08:45; Admin Dose 1 EACH; Start 12/12/16 at 09:00 Lansoprazole (Prevacid) 30 mg DAILY@06 GTB Last administered on 12/12/16 06:17 ; Admin Dose 30 MG; Start 12/12/16 at 06:00 Lidocaine (Lidoderm) 1 patch DAILY TD Last administered on 12/12/16 11:05; Admin Dose 1 PATCH; Start 12/12/16 at 09:00 Lorazepam (Ativan) 2 mg Q4 PRN IV AGITATION; Start 12/11/16 at 23:00 Metoprolol Tartrate (Lopressor) 25 mg TID GTB Last administered on 12/12/16 08 :45; Admin Dose 25 MG; Start 12/12/16 at 09:00 Metoclopramide HCl (Reglan) 10 mg Q6 GTB Last administered on 12/12/16 06:17; Admin Dose 10 MG; Start 12/12/16 at 00:00 Miconazole Nitrate (Miconazole 2% Cr) 1 applic BID TOP Last administered on 08:45; Admin Dose 1 APPLIC; Start 12/12/16 at 09:00 Morphine Sulfate (morphine) 4 mg Q4H PRN IV PAIN LEVEL 7-10 Last administered on 12/12/16 00:40; Admin Dose 4 MG; Start 12/11/16 at 23:00 Nystatin (Nystatin Susp) 5 ml TID PO Last administered on 12/12/16 08:45; Admin Dose 5 ML; Start 12/12/16 at 09:00 Ondansetron HCl (Zofran Inj) 4 mg Q6H PRN IV NAUSEA AND/OR VOMITING; Start at 23:00 Oxcarbazepine (Trileptal) 300 mg BID PO Last administered on 12/12/16 08:45; Admin Dose 300 MG; Start 12/11/16 at 23:00 Quetiapine Fumarate (Seroquel) 25 mg Q6 PRN GTB AGITATION; Start 12/11/16 at 23 :00 Thiamine HCl 100 mg 100 mg DAILY GTB Last administered on 12/12/16 08:45; Admin Dose 100 MG; Start 12/12/16 at 09:00 Linezolid 300 ml @ 300 mls/hr Q12 IVPB Last administered on 12/12/16 08:45; Admin Dose 300 MLS/HR; Start 12/12/16 at 00:00 Meropenem/Sodium Chloride (Merrem 500mg/50 ml(Pmx)) 50 ml @ 100 mls/hr Q12 IVPB ; Start 12/12/16 at 21:00 MARIO LAND Dec 12, 2016 11:41
--- NOTE | 2016-12-12 15:46 | CONS ---
Date/Time of Note Date/Time of Note DATE: 12/12/16 TIME: 15:41 Consult Date/Type/Reason Admit Date/Time Dec 11, 2016 at 20:22 Initial Consult Date 12/12/16 Type of Consultation: Pulmonary Ordering Provider: MATTHEW CALDERON MD Subjective 71-year-old gentleman transferred from [place] yesterday for increasing heart rate and agitation. Remains mostly somnolent. He was given mild sedation and pain control with improvement in hemodynamics. Currently continues mechanical ventilation currently not amenable. Prior to transfer here he was managed to follow respiratory hospital treated for GI bleed , MDR Acinetobacter pneumonia and E. coli ESBL urinary tract infection. In addition to this he has functional quadriplegia with tracheostomy and G-tube on mechanical ventilation. Objective Vital Signs Date Time Temp Pulse Resp B/P Pulse Ox O2 Delivery O2 Flow Rate FiO2 12/12/16 12:00 98 12/12/16 07:00 20 134/64 100 12/12/16 06:00 Mechanical Ventilator 12/12/16 05:27 70 12/12/16 04:00 99.0 Intake and Output 12/11/16 12/11/16 12/12/16 15:00 23:00 07:00 Intake Total 75 ml 950 ml Output Total 300 ml Balance 75 ml 650 ml Exam PHYSICAL EXAMINATION GENERAL: Elderly gentleman, On mechanical ventilation, opens eyes and appears somewhat agitated. Orally intubated. VITAL SIGNS: see below. HEENT: Pupils equal, round, and reactive to light. Tracheostomy site clean and intact. CARDIAC: S1, S2, 1/6 systolic ejection murmur CHEST: Diminished air entry bilaterally. Bilateral rales ABDOMEN: Mildly distended. Bowel sounds present no guarding or rebound EXTREMITIES: No cyanosis, clubbing edema +1 NEUROLOGIC: Generalized weakness Results/Medications Result Diagram: 12/12/16 0450 12/12/16 1045 Results 24 hrs Laboratory Tests Test 12/12/16 04:50 12/12/16 07:00 12/12/16 10:45 White Blood Count 9.0 Red Blood Count 2.85 L Hemoglobin 7.9 L Hematocrit 26.6 L Mean Corpuscular Volume 93.3 Mean Corpuscular Hemoglobin 27.7 L Mean Corpuscular Hemoglobin Concent 29.7 L Red Cell Distribution Width 18.3 H Platelet Count 299 Mean Platelet Volume 10.7 H Neutrophils % 56.5 Lymphocytes % 15.3 Monocytes % 5.9 Eosinophils % 20.8 H Basophils % 0.7 Nucleated Red Blood Cells % 0.0 Neutrophils # 5.1 Lymphocytes # 1.4 Monocytes # 0.5 Eosinophils # 1.9 H Basophils # 0.1 Nucleated Red Blood Cells # 0.0 Differential Comment AUTO w/SCAN Sodium Level 143 147 H Potassium Level 4.0 4.0 Chloride Level 101 102 Carbon Dioxide Level 30 29 Anion Gap 16 20 H Blood Urea Nitrogen 78 H 78 H Creatinine 2.32 H 2.23 H Glucose Level 97 86 Calcium Level 9.8 9.6 Blood Gas Specimen Source Blood arterial Arterial Blood Date Drawn 12/12/2016 7:30:11 AM Arterial Blood pH (Temp corrected) 7.426 Arterial Blood pCO2 (Temp correct) 42.7 Arterial Blood pO2 (Temp corrected) 225.7 H Arterial Blood HCO3 27.5 H Arterial Blood Base Excess 2.8 Arterial Blood Oxygen Saturation 99.1 H Wai Test ACCEPTAB Arterial Blood Gas Puncture Site Right Radial Arterial Blood Carboxyhemoglobin 0.6 Arterial Blood Methemoglobin 0.4 Blood Gas A-a O2 Differential 227.5 H Oxyhemoglobin Percent 98.1 Total Hemoglobin 8.3 L Blood Gas Temperature 37.0 Blood Gas Respiration Rate 20.0 Blood Gas Actual Respiration Rate 25 Blood Gas Modality VENT - PC FiO2 70.0 Blood Gas Low PEEP Setting 5.0 Blood Gas Inspiratory Pressure 25.0 Blood Gas Notified Whom JLD Blood Gas Notified Time 12/12/2016 8:00:56 AM Lactic Acid Level 0.9 Total Bilirubin 0.0 L Direct Bilirubin 0.00 Indirect Bilirubin 0.0 Aspartate Amino Transf (AST/SGOT) 57 H Alanine Aminotransferase (ALT/SGPT) 51 Alkaline Phosphatase 213 H Total Protein 7.0 Albumin 2.8 L Globulin 4.20 H Albumin/Globulin Ratio 0.66 Medications Current Medications Sodium Chloride (NS) 1,000 ml @ 75 mls/hr [id number] IV Last administered on 12/12t 11:12; Admin Dose 75 MLS/HR; Start 12/11/16 at 21:30 Acetaminophen (Tylenol Liquid) 650 mg Q6 PRN GTB PAIN AND OR ELEVATED TEMP; Start 12/11/16 at 23:00 Bacitracin/ Polymyxin B Sulfate (Polysporin Oint) 1 applic BID TOP Last administered on 12/12/16 08:45; Admin Dose 1 APPLIC; Start 12/12/16 at 09:00 Clonidine (Catapres) 0.1 mg Q6H PRN PO ELEVATED SYSTOLIC BP; Start 12/11/16 at 23:00 Docusate Sodium (Colace Liquid Cup) 100 mg BID PRN GTB CONSTIPATION; Start at 23:00 Folic Acid (Folic Acid) 1 mg DAILY GTB Last administered on 12/12/16 08:45; Admin Dose 1 MG; Start 12/12/16 at 09:00 Lactobacillus Acidophilus (Florajen3 Capsule) 1 each TID PO Last administered on 12/12/16 14:00; Admin Dose 1 EACH; Start 12/12/16 at 09:00 Lansoprazole (Prevacid) 30 mg DAILY@06 GTB Last administered on 12/12/16 06:17 ; Admin Dose 30 MG; Start 12/12/16 at 06:00 Lidocaine (Lidoderm) 1 patch DAILY TD Last administered on 12/12/16 11:05; Admin Dose 1 PATCH; Start 12/12/16 at 09:00 Lorazepam (Ativan) 2 mg Q4 PRN IV AGITATION; Start 12/11/16 at 23:00 Metoprolol Tartrate (Lopressor) 25 mg TID GTB Last administered on 12/12/16 08 :45; Admin Dose 25 MG; Start 12/12/16 at 09:00 Metoclopramide HCl (Reglan) 10 mg Q6 GTB Last administered on 12/12/16 12:58; Admin Dose 10 MG; Start 12/12/16 at 00:00 Miconazole Nitrate (Miconazole 2% Cr) 1 applic BID TOP Last administered on 08:45; Admin Dose 1 APPLIC; Start 12/12/16 at 09:00 Morphine Sulfate (morphine) 4 mg Q4H PRN IV PAIN LEVEL 7-10 Last administered on 12/12/16 14:51; Admin Dose 4 MG; Start 12/11/16 at 23:00 Nystatin (Nystatin Susp) 5 ml TID PO Last administered on 12/12/16 14:00; Admin Dose 5 ML; Start 12/12/16 at 09:00 Ondansetron HCl (Zofran Inj) 4 mg Q6H PRN IV NAUSEA AND/OR VOMITING; Start at 23:00 Oxcarbazepine (Trileptal) 300 mg BID PO Last administered on 12/12/16 08:45; Admin Dose 300 MG; Start 12/11/16 at 23:00 Quetiapine Fumarate (Seroquel) 25 mg Q6 PRN GTB AGITATION; Start 12/11/16 at 23 :00 Thiamine HCl 100 mg 100 mg DAILY GTB Last administered on 12/12/16 08:45; Admin Dose 100 MG; Start 12/12/16 at 09:00 Linezolid 300 ml @ 300 mls/hr Q12 IVPB Last administered on 12/12/16 08:45; Admin Dose 300 MLS/HR; Start 12/12/16 at 00:00 Meropenem/Sodium Chloride (Merrem 500mg/50 ml(Pmx)) 50 ml @ 100 mls/hr Q12 IVPB ; Start 12/12/16 at 21:00 Assessment/Plan Chief Complaint/Hosp Course Assessment 1. Vent dependent respiratory failure with acute on chronic hypoxemic respiratory failure secondary to pneumonia from MDR polymicrobial resistant organism and underlying pulmonary fibrosis. 2. Recent tachypnea and tachycardia likely secondary to underlying agitation and sepsis. 3. Dysphagia with G-tube 4. History of quadriplegia 5. Anemia recent GI bleed Plan 1. Continue mechanical ventilation 2. Continue pain control 3. Tube feeding as tolerated 4. Antibiotic management per infectious disease team 5. DVT and GI prophylaxis Patient stable to transfer to telemetry unit Critical care time 40 minutes. Problems: COLETTE SAAVEDRA MD, [facility] Dec 12, 2016 15:46
[2016-12-12 15:57] LABS: ADD UMIC YES; UR ASCORBIC ACID NEGATIVE (NEGATIVE); UR BILIRUBIN (Dip) NEGATIVE (NEGATIVE); UR BLOOD (Dip) NEGATIVE (NEGATIVE); UR CLARITY SLIGHTLY CLOUDY (CLEAR); UR COLOR YELLOW (YELLOW); UR GLUCOSE (Dip) NEGATIVE (NEGATIVE); UR KETONES (Dip) NEGATIVE (NEGATIVE); UR LEUKOCYTE ESTERASE (Dip) 2+ Leu/ul (NEGATIVE); UR NITRITE (Dip) NEGATIVE (NEGATIVE); UR RBC 1 /HPF (0-5); UR SPECIFIC GRAVITY (Dip) 1.011 (1.003-1.030); UR TOTAL PROTEIN (Dip) 1+ mg/dl (NEGATIVE); UR UROBILINOGEN (Dip) NEGATIVE (NEGATIVE)
[2016-12-12] MEDS: MEROPENEM 500MG/50 ML (PMX) 50 ML IVPB SCH (20:41)
[2016-12-13] VITALS (28 sets, daily range): BP systolic 97–140; BP diastolic 53–108; PULSE 94–112; RESP 18–34
[2016-12-13] MEDS ORDERED: LINEZOLID 600 MG/D5W (PMX) 300 ML IVPB SCH
[2016-12-13] MEDS: SOD CHLORIDE 0.9% 1,000 ML IV SCH ×2 (00:10→15:26)
[2016-12-13] MEDS: METOCLOPRAMIDE 10 MG TAB GTB SCH ×4 (00:16→18:00)
[2016-12-13] MEDS: ALBUTEROL 18 GM INHALER INH SCH ×3 (03:34→13:47)
[2016-12-13] MEDS: IPRATROPIUM (HFA) 12.9 GM INHALER INH SCH ×3 (03:34→13:47)
[2016-12-13 05:25] LABS: ADD SCAN DIFF NO
[2016-12-13 05:37] LABS: BASOPHIL # 0.1 10^3/ul (0.0-0.1); BASOPHILS % 0.9 % (0.0-2.0); EOSINOPHILS # 1.2 10^3/ul (0.0-0.5); HEMATOCRIT 25.2 % (42.0-52.0); HEMOGLOBIN 7.6 g/dl (14.0-18.0); LYMPHOCYTES # 0.9 10^3/ul (0.8-2.9); LYMPHOCYTES % 12.9 % (15.0-51.0); MEAN CORPUSCULAR HEMOGLOBIN 27.8 pg (29.0-33.0); MEAN CORPUSCULAR HGB CONC 30.2 g/dl (32.0-37.0); MEAN CORPUSCULAR VOLUME 92.3 fl (82.0-101.0); MEAN PLATELET VOLUME 10.6 fl (7.4-10.4); MONOCYTE # 0.5 10^3/ul (0.3-0.9); MONOCYTES % 7.3 % (0.0-11.0); NEUTROPHIL # 4.1 10^3/ul (1.6-7.5); NEUTROPHILS % 60.8 % (39.0-77.0); PLATELET COUNT 315 10^3/UL (140-415); RED BLOOD COUNT 2.73 10^6/ul (4.70-6.10); RED CELL DISTRIBUTION WIDTH 18.1 % (11.5-14.5); WHITE BLOOD COUNT 6.7 10^3/ul (4.8-10.8)
[2016-12-13 06:00] LABS: CALCIUM 9.3 mg/dl (8.4-10.2); CREATININE 2.19 mg/dl (0.61-1.24); POTASSIUM 3.4 mmol/L (3.5-5.1)
[2016-12-13 06:03] LABS: EOSINOPHILS % 17.2 % (0.0-7.0)
[2016-12-13] MEDS: LANSOPRAZOLE 30 MG CAP GTB SCH (06:30)
[2016-12-13] MEDS: MAGNESIUM HYDROXIDE 30ML CUP PO SCH ×3 (08:24→17:54)
[2016-12-13] MEDS: COLISTIMETHATE (25 MG/ML INHAL SYG) NEB SCH ×2 (08:51→09:58)
[2016-12-13] MEDS ORDERED: POTASSIUM CHLORIDE (SR) 20 MEQ TAB PO STA (09:35)
--- NOTE | 2016-12-13 09:35 | PN ---
Date/Time of Note Date/Time of Note DATE: 12/13/16 TIME: 09:26 Assessment/Plan VTE Prophylaxis VTE Prophylaxis Intervention: other Lines/Catheters IV Catheter Type (from Nrs): Peripheral IV Assessment/Plan Assessment/Plan - Hypokalemia- replace K, CMP am - Hypernatremia - gt flush 200 cc Q 6hr - CMP am -Possible recurrent sepsis, Dr. Laguerre is following an infection disease consultation. Continue antibiotics per ID, follow up on cultures and chest x- ray. -Acute on chronic respiratory failure,- Dr. Souza is following in pulmonology consultation. Continue ventilatory support, breathing treatments, pulmonary toilet. -Pulmonary fibrosis -Chronic diastolic heart failure -Hyperlipidemia -History of upper GI bleed, status post EGD with no active bleeding noted -Dysphagia with PEG -Fatty liver -History of alcoholism Total critical care time spent- 35 mins.Further recommendations based on clinical course. Plan of care discussed with Dr. Austin. Subjective 24 Hr Interval Summary Free Text/Dictation awake, does not follow commands, afebrile, ID follows, low K- will replace, Trach to vent, tolerating GT feeding at 200 cc/hr. cont monitoring in ICU. dw staff Constitutional: requiring IVF, requiring O2 Exam/Review of Systems Vital Signs Vitals Vital Signs Date Time Temp Pulse Resp B/P Pulse Ox O2 Delivery O2 Flow Rate FiO2 12/13/16 06:00 108 31 120/82 100 Mechanical Ventilator 12/13/16 05:05 50 12/13/16 04:00 98.5 Intake and Output 12/12/16 12/12/16 12/13/16 15:00 23:00 07:00 Intake Total 600 ml 900 ml 725 ml Output Total 610 ml 550 ml Balance 600 ml 290 ml 175 ml Exam Constitutional: alert Respiratory: diminished breath sounds Cardiovascular: nl pulses, regular rate and rhythm Gastrointestinal: non-tender, other, soft Musculoskeletal: nl extremities to inspection Extremities: normal pulses Neurological: other Results Result Diagram: 12/13/16 0445 12/13/16 0445 Results 24 hrs Laboratory Tests Test 12/12/16 10:45 12/12/16 11:25 12/13/16 04:45 Sodium Level 147 H 148 H Potassium Level 4.0 3.4 L Chloride Level 102 101 Carbon Dioxide Level 29 31 Anion Gap 20 H 19 H Blood Urea Nitrogen 78 H 67 H Creatinine 2.23 H 2.19 H Glucose Level 86 98 Lactic Acid Level 0.9 Calcium Level 9.6 9.3 Total Bilirubin 0.0 L Direct Bilirubin 0.00 Indirect Bilirubin 0.0 Aspartate Amino Transf (AST/SGOT) 57 H Alanine Aminotransferase (ALT/SGPT) 51 Alkaline Phosphatase 213 H Total Protein 7.0 Albumin 2.8 L Globulin 4.20 H Albumin/Globulin Ratio 0.66 Urine Color YELLOW Urine Clarity SLIGHTLY CLOUDY A Urine pH 6.0 Urine Specific [place] 1.011 Urine Ketones NEGATIVE Urine Nitrite NEGATIVE Urine Bilirubin NEGATIVE Urine Urobilinogen NEGATIVE Urine Leukocyte Esterase 2+ H Urine Microscopic RBC 1 Urine Microscopic WBC 6 H Urine Hemoglobin NEGATIVE Urine Glucose NEGATIVE Urine Total Protein 1+ H White Blood Count 6.7 # Red Blood Count 2.73 L Hemoglobin 7.6 L Hematocrit 25.2 L Mean Corpuscular Volume 92.3 Mean Corpuscular Hemoglobin 27.8 L Mean Corpuscular Hemoglobin Concent 30.2 L Red Cell Distribution Width 18.1 H Platelet Count 315 Mean Platelet Volume 10.6 H Neutrophils % 60.8 Lymphocytes % 12.9 L Monocytes % 7.3 Eosinophils % 17.2 H Basophils % 0.9 Nucleated Red Blood Cells % 0.0 Neutrophils # 4.1 Lymphocytes # 0.9 Monocytes # 0.5 Eosinophils # 1.2 H Basophils # 0.1 Nucleated Red Blood Cells # 0.0 Medications Medications Current Medications Sodium Chloride (NS) 1,000 ml @ 75 mls/hr [id number] IV Last administered on 12/12 11:12; Admin Dose 75 MLS/HR; Start 12/11/16 at 21:30 Acetaminophen (Tylenol Liquid) 650 mg Q6 PRN GTB PAIN AND OR ELEVATED TEMP; Start 12/11/16 at 23:00 Bacitracin/ Polymyxin B Sulfate (Polysporin Oint) 1 applic BID TOP Last administered on 12/12/16 20:32; Admin Dose 1 APPLIC; Start 12/12/16 at 09:00 Clonidine (Catapres) 0.1 mg Q6H PRN PO ELEVATED SYSTOLIC BP; Start 12/11/16 at 23:00 Docusate Sodium (Colace Liquid Cup) 100 mg BID PRN GTB CONSTIPATION; Start at 23:00 Folic Acid (Folic Acid) 1 mg DAILY GTB Last administered on 12/12/16 08:45; Admin Dose 1 MG; Start 12/12/16 at 09:00 Lactobacillus Acidophilus (Florajen3 Capsule) 1 each TID PO Last administered on 12/12/16 20:31; Admin Dose 1 EACH; Start 12/12/16 at 09:00 Lansoprazole (Prevacid) 30 mg DAILY@06 GTB Last administered on 12/13/16 06:30 ; Admin Dose 30 MG; Start 12/12/16 at 06:00 Lidocaine (Lidoderm) 1 patch DAILY TD Last administered on 12/12/16 11:05; Admin Dose 1 PATCH; Start 12/12/16 at 09:00 Lorazepam (Ativan) 2 mg Q4 PRN IV AGITATION; Start 12/11/16 at 23:00 Metoprolol Tartrate (Lopressor) 25 mg TID GTB Last administered on 12/12/16 20 :31; Admin Dose 25 MG; Start 12/12/16 at 09:00 Metoclopramide HCl (Reglan) 10 mg Q6 GTB Last administered on 12/13/16 06:30; Admin Dose 10 MG; Start 12/12/16 at 00:00 Miconazole Nitrate (Miconazole 2% Cr) 1 applic BID TOP Last administered on 20:33; Admin Dose 1 APPLIC; Start 12/12/16 at 09:00 Morphine Sulfate (morphine) 4 mg Q4H PRN IV PAIN LEVEL 7-10 Last administered on 12/12/16 14:51; Admin Dose 4 MG; Start 12/11/16 at 23:00 Nystatin (Nystatin Susp) 5 ml TID PO Last administered on 12/12/16 20:32; Admin Dose 5 ML; Start 12/12/16 at 09:00 Ondansetron HCl (Zofran Inj) 4 mg Q6H PRN IV NAUSEA AND/OR VOMITING; Start at 23:00 Oxcarbazepine (Trileptal) 300 mg BID PO Last administered on 12/12/16 20:31; Admin Dose 300 MG; Start 12/11/16 at 23:00 Quetiapine Fumarate (Seroquel) 25 mg Q6 PRN GTB AGITATION; Start 12/11/16 at 23 :00 Thiamine HCl 100 mg 100 mg DAILY GTB Last administered on 12/12/16 08:45; Admin Dose 100 MG; Start 12/12/16 at 09:00 Linezolid 300 ml @ 300 mls/hr Q12 IVPB Last administered on 12/12/16 22:04; Admin Dose 300 MLS/HR; Start 12/12/16 at 00:00 Meropenem/Sodium Chloride (Merrem 500mg/50 ml(Pmx)) 50 ml @ 100 mls/hr Q12 IVPB Last administered on 12/12/16 20:41; Admin Dose 100 MLS/HR; Start at 21:00 CHARITY DUKE Dec 13, 2016 09:34
[2016-12-13] MEDS: MEROPENEM 500MG/50 ML (PMX) 50 ML IVPB SCH (10:00)
[2016-12-13] MEDS: THIAMINE 100 MG TAB GTB SCH (10:00)
[2016-12-13] MEDS: FOLIC ACID 1 MG TAB GTB SCH (10:01)
[2016-12-13] MEDS: OXCARBAZEPINE 300 MG TAB PO SCH (10:01)
[2016-12-13] MEDS: NYSTATIN SUSP 5 ML CUP PO SCH ×2 (10:01→13:21)
[2016-12-13] MEDS: L ACIDOPHIL/B LACTIS/B LONGUM CAPSULE PO SCH ×2 (10:02→13:50)
[2016-12-13] MEDS: METOPROLOL 25 MG TAB GTB SCH ×2 (10:02→13:00)
[2016-12-13] MEDS: LIDOCAINE 5% PATCH TD SCH (10:02)
[2016-12-13] MEDS: LINEZOLID 600 MG/D5W (PMX) 300 ML IVPB SCH (10:02)
[2016-12-13] MEDS: MICONAZOLE 2% 30 GM CR TOP SCH (10:03)
[2016-12-13] MEDS: BACITRACIN/POLYMYXIN 28.35 GM OINT TOP SCH (10:03)
[2016-12-13] MEDS ORDERED: POTASSIUM CHLORIDE 20 MEQ POWDER FOR ORAL SOLN GTB ONE (10:30)
--- NOTE | 2016-12-13 11:25 | CONS ---
Date/Time of Note Date/Time of Note DATE: 12/13/16 TIME: 11:24 Consult Date/Type/Reason Admit Date/Time Dec 11, 2016 at 20:22 Initial Consult Date 12/12/16 Type of Consultation: Pulmonary Ordering Provider: MATTHEW CALDERON MD Subjective Awake alert family at bedside. Objective Vital Signs Date Time Temp Pulse Resp B/P Pulse Ox O2 Delivery O2 Flow Rate FiO2 12/13/16 11:00 104 29 117/73 100 Mechanical Ventilator 12/13/16 07:00 98.5 12/13/16 05:05 50 Intake and Output 12/12/16 12/12/16 12/13/16 15:00 23:00 07:00 Intake Total 600 ml 900 ml 800 ml Output Total 610 ml 550 ml Balance 600 ml 290 ml 250 ml Exam PHYSICAL EXAMINATION GENERAL: Elderly gentleman, On mechanical ventilation, opens eyes and appears somewhat agitated. Orally intubated. VITAL SIGNS: see below. HEENT: Pupils equal, round, and reactive to light. Tracheostomy site clean and intact. CARDIAC: S1, S2, 1/6 systolic ejection murmur CHEST: Diminished air entry bilaterally. Bilateral rales ABDOMEN: Mildly distended. Bowel sounds present no guarding or rebound EXTREMITIES: No cyanosis, clubbing edema +1 NEUROLOGIC: Generalized weakness Results/Medications Result Diagram: 12/13/165 12/13/16444 Results 24 hrs Laboratory Tests Test 12/12/16 11:25 12/13/16 04:45 Urine Color YELLOW Urine Clarity SLIGHTLY CLOUDY A Urine pH 6.0 Urine Specific [place] 1.011 Urine Ketones NEGATIVE Urine Nitrite NEGATIVE Urine Bilirubin NEGATIVE Urine Urobilinogen NEGATIVE Urine Leukocyte Esterase 2+ H Urine Microscopic RBC 1 Urine Microscopic WBC 6 H Urine Hemoglobin NEGATIVE Urine Glucose NEGATIVE Urine Total Protein 1+ H White Blood Count 6.7 # Red Blood Count 2.73 L Hemoglobin 7.6 L Hematocrit 25.2 L Mean Corpuscular Volume 92.3 Mean Corpuscular Hemoglobin 27.8 L Mean Corpuscular Hemoglobin Concent 30.2 L Red Cell Distribution Width 18.1 H Platelet Count 315 Mean Platelet Volume 10.6 H Neutrophils % 60.8 Lymphocytes % 12.9 L Monocytes % 7.3 Eosinophils % 17.2 H Basophils % 0.9 Nucleated Red Blood Cells % 0.0 Neutrophils # 4.1 Lymphocytes # 0.9 Monocytes # 0.5 Eosinophils # 1.2 H Basophils # 0.1 Nucleated Red Blood Cells # 0.0 Sodium Level 148 H Potassium Level 3.4 L Chloride Level 101 Carbon Dioxide Level 31 Anion Gap 19 H Blood Urea Nitrogen 67 H Creatinine 2.19 H Glucose Level 98 Calcium Level 9.3 Medications Current Medications Sodium Chloride (NS) 1,000 ml @ 75 mls/hr [id number] IV Last administered on 12/12 11:12; Admin Dose 75 MLS/HR; Start 12/11/16 at 21:30 Acetaminophen (Tylenol Liquid) 650 mg Q6 PRN GTB PAIN AND OR ELEVATED TEMP; Start 12/11/16 at 23:00 Bacitracin/ Polymyxin B Sulfate (Polysporin Oint) 1 applic BID TOP Last administered on 12/13/16 10:03; Admin Dose 1 APPLIC; Start 12/12/16 at 09:00 Clonidine (Catapres) 0.1 mg Q6H PRN PO ELEVATED SYSTOLIC BP; Start 12/11/16 at 23:00 Docusate Sodium (Colace Liquid Cup) 100 mg BID PRN GTB CONSTIPATION; Start at 23:00 Folic Acid (Folic Acid) 1 mg DAILY GTB Last administered on 12/13/16 10:01; Admin Dose 1 MG; Start 12/12/16 at 09:00 Lactobacillus Acidophilus (Florajen3 Capsule) 1 each TID PO Last administered on 12/13/16 10:02; Admin Dose 1 EACH; Start 12/12/16 at 09:00 Lansoprazole (Prevacid) 30 mg DAILY@06 GTB Last administered on 12/13/16 06:30 ; Admin Dose 30 MG; Start 12/12/16 at 06:00 Lidocaine (Lidoderm) 1 patch DAILY TD Last administered on 12/13/16 10:02; Admin Dose 1 PATCH; Start 12/12/16 at 09:00 Lorazepam (Ativan) 2 mg Q4 PRN IV AGITATION; Start 12/11/16 at 23:00 Metoprolol Tartrate (Lopressor) 25 mg TID GTB Last administered on 12/13/16 10 :02; Admin Dose 25 MG; Start 12/12/16 at 09:00 Metoclopramide HCl (Reglan) 10 mg Q6 GTB Last administered on 12/13/16 06:30; Admin Dose 10 MG; Start 12/12/16 at 00:00 Miconazole Nitrate (Miconazole 2% Cr) 1 applic BID TOP Last administered on 10:03; Admin Dose 1 APPLIC; Start 12/12/16 at 09:00 Morphine Sulfate (morphine) 4 mg Q4H PRN IV PAIN LEVEL 7-10 Last administered on 12/12/16 14:51; Admin Dose 4 MG; Start 12/11/16 at 23:00 Nystatin (Nystatin Susp) 5 ml TID PO Last administered on 12/13/16 10:01; Admin Dose 5 ML; Start 12/12/16 at 09:00 Ondansetron HCl (Zofran Inj) 4 mg Q6H PRN IV NAUSEA AND/OR VOMITING; Start at 23:00 Oxcarbazepine (Trileptal) 300 mg BID PO Last administered on 12/13/16 10:01; Admin Dose 300 MG; Start 12/11/16 at 23:00 Quetiapine Fumarate (Seroquel) 25 mg Q6 PRN GTB AGITATION; Start 12/11/16 at 23 :00 Thiamine HCl 100 mg 100 mg DAILY GTB Last administered on 12/13/16 10:00; Admin Dose 100 MG; Start 12/12/16 at 09:00 Linezolid 300 ml @ 300 mls/hr Q12 IVPB Last administered on 12/13/16 10:02; Admin Dose 300 MLS/HR; Start 12/12/16 at 00:00 Meropenem/Sodium Chloride (Merrem 500mg/50 ml(Pmx)) 50 ml @ 100 mls/hr Q12 IVPB Last administered on 12/12/16 20:41; Admin Dose 100 MLS/HR; Start at 21:00 Assessment/Plan Chief Complaint/Hosp Course Assessment 1. Vent dependent respiratory failure with acute on chronic hypoxemic respiratory failure secondary to pneumonia from MDR polymicrobial resistant organism and underlying pulmonary fibrosis. 2. Recent tachypnea and tachycardia likely secondary to underlying agitation and sepsis. 3. Dysphagia with G-tube 4. History of quadriplegia 5. Anemia recent GI bleed Plan 1. Continue mechanical ventilation 2. Continue pain control 3. Tube feeding as tolerated 4. Antibiotic management per infectious disease team 5. DVT and GI prophylaxis 6. Transfuse 1 unit packed red blood cells Patient stable to transfer to telemetry unit Critical care time 40 minutes. Problems: COLETTE SAAVEDRA MD, [facility] Dec 13, 2016 11:25
--- NOTE | 2016-12-13 11:42 | PN ---
Date/Time of Note Date/Time of Note DATE: 12/13/16 TIME: 11:36 Assessment/Plan Lines/Catheters IV Catheter Type (from Nrs): Peripheral IV Assessment/Plan Chief Complaint/Hosp Course 1. Nonoliguric acute kidney injury on top of CKD with previous baseline creatinine between 2-2.5 mg/dL Etiology of [place] secondary hemodynamics, septic area, possible tubular injury Plan at this point is to repeat urinalysis check urine lites Continue supportive care renally dose all meds Continue to monitor closely Hyponatremia Patient is a free water deficit approximately 2 L We will increase free water flushes 200 cc every 4 hours Monitor Anemia Monitor H&H levels Mental bone disorder Monitor calcium phosphorus levels ventilator dependent respiratory failure Vent settings reviewed, ABG is reviewed, Follow-up with pulmonary Hypokalemia Replete Sepsis Continue current antibiotic regimen Cultures have been reviewed Dysphasia status post PEG Continue tube feed Problems: Subjective 24 Hr Interval Summary Free Text/Dictation Patient seen and examined Currently stable No events overnight Exam/Review of Systems Vital Signs Vitals Vital Signs Date Time Temp Pulse Resp B/P Pulse Ox O2 Delivery O2 Flow Rate FiO2 12/13/16 11:00 104 29 117/73 100 Mechanical Ventilator 12/13/16 07:00 98.5 12/13/16 05:05 50 Intake and Output 12/12/16 12/12/16 12/13/16 15:00 23:00 07:00 Intake Total 600 ml 900 ml 800 ml Output Total 610 ml 550 ml Balance 600 ml 290 ml 250 ml Exam Constitutional: alert Respiratory: diminished breath sounds Cardiovascular: nl pulses, regular rate and rhythm Gastrointestinal: non-tender, other, soft Musculoskeletal: nl extremities to inspection Extremities: normal pulses Neurological: other Results Result Diagram: 12/13/16 0445 12/13/16 0445 Results 24 hrs Laboratory Tests Test 12/13/16 04:45 White Blood Count 6.7 # Red Blood Count 2.73 L Hemoglobin 7.6 L Hematocrit 25.2 L Mean Corpuscular Volume 92.3 Mean Corpuscular Hemoglobin 27.8 L Mean Corpuscular Hemoglobin Concent 30.2 L Red Cell Distribution Width 18.1 H Platelet Count 315 Mean Platelet Volume 10.6 H Neutrophils % 60.8 Lymphocytes % 12.9 L Monocytes % 7.3 Eosinophils % 17.2 H Basophils % 0.9 Nucleated Red Blood Cells % 0.0 Neutrophils # 4.1 Lymphocytes # 0.9 Monocytes # 0.5 Eosinophils # 1.2 H Basophils # 0.1 Nucleated Red Blood Cells # 0.0 Sodium Level 148 H Potassium Level 3.4 L Chloride Level 101 Carbon Dioxide Level 31 Anion Gap 19 H Blood Urea Nitrogen 67 H Creatinine 2.19 H Glucose Level 98 Calcium Level 9.3 Medications Medications Current Medications Sodium Chloride (NS) 1,000 ml @ 75 mls/hr [id number] IV Last administered on 12/12 11:12; Admin Dose 75 MLS/HR; Start 12/11/16 at 21:30 Acetaminophen (Tylenol Liquid) 650 mg Q6 PRN GTB PAIN AND OR ELEVATED TEMP; Start 12/11/16 at 23:00 Bacitracin/ Polymyxin B Sulfate (Polysporin Oint) 1 applic BID TOP Last administered on 12/13/16 10:03; Admin Dose 1 APPLIC; Start 12/12/16 at 09:00 Clonidine (Catapres) 0.1 mg Q6H PRN PO ELEVATED SYSTOLIC BP; Start 12/11/16 at 23:00 Docusate Sodium (Colace Liquid Cup) 100 mg BID PRN GTB CONSTIPATION; Start at 23:00 Folic Acid (Folic Acid) 1 mg DAILY GTB Last administered on 12/13/16 10:01; Admin Dose 1 MG; Start 12/12/16 at 09:00 Lactobacillus Acidophilus (Florajen3 Capsule) 1 each TID PO Last administered on 12/13/16 10:02; Admin Dose 1 EACH; Start 12/12/16 at 09:00 Lansoprazole (Prevacid) 30 mg DAILY@06 GTB Last administered on 12/13/16 06:30 ; Admin Dose 30 MG; Start 12/12/16 at 06:00 Lidocaine (Lidoderm) 1 patch DAILY TD Last administered on 12/13/16 10:02; Admin Dose 1 PATCH; Start 12/12/16 at 09:00 Lorazepam (Ativan) 2 mg Q4 PRN IV AGITATION; Start 12/11/16 at 23:00 Metoprolol Tartrate (Lopressor) 25 mg TID GTB Last administered on 12/13/16 10 :02; Admin Dose 25 MG; Start 12/12/16 at 09:00 Metoclopramide HCl (Reglan) 10 mg Q6 GTB Last administered on 12/13/16 06:30; Admin Dose 10 MG; Start 12/12/16 at 00:00 Miconazole Nitrate (Miconazole 2% Cr) 1 applic BID TOP Last administered on 10:03; Admin Dose 1 APPLIC; Start 12/12/16 at 09:00 Morphine Sulfate (morphine) 4 mg Q4H PRN IV PAIN LEVEL 7-10 Last administered on 12/12/16 14:51; Admin Dose 4 MG; Start 12/11/16 at 23:00 Nystatin (Nystatin Susp) 5 ml TID PO Last administered on 12/13/16 10:01; Admin Dose 5 ML; Start 12/12/16 at 09:00 Ondansetron HCl (Zofran Inj) 4 mg Q6H PRN IV NAUSEA AND/OR VOMITING; Start at 23:00 Oxcarbazepine (Trileptal) 300 mg BID PO Last administered on 12/13/16 10:01; Admin Dose 300 MG; Start 12/11/16 at 23:00 Quetiapine Fumarate (Seroquel) 25 mg Q6 PRN GTB AGITATION; Start 12/11/16 at 23 :00 Thiamine HCl 100 mg 100 mg DAILY GTB Last administered on 12/13/16 10:00; Admin Dose 100 MG; Start 12/12/16 at 09:00 Linezolid 300 ml @ 300 mls/hr Q12 IVPB Last administered on 12/13/16 10:02; Admin Dose 300 MLS/HR; Start 12/12/16 at 00:00 Meropenem/Sodium Chloride (Merrem 500mg/50 ml(Pmx)) 50 ml @ 100 mls/hr Q12 IVPB Last administered on 12/12/16 20:41; Admin Dose 100 MLS/HR; Start at 21:00 CLAUDIA ANGELO DO Dec 13, 2016 11:42
--- NOTE | 2016-12-13 14:43 | CONS ---
RODRIGUEZ GLOVER SAWMILL OR [employer] 12/13/16 1443: Date/Time of Note Date/Time of Note DATE: 12/13/16 TIME: 14:39 Assessment/Plan Assessment/Plan Chief Complaint/Hosp Course assessment/impression - possible, recurrent sepsis (sputum culture growing GNR) - underlying pulmonary fibrosis - VDRF s/p trach 10/09/2016 - dysphagia s/p PEG placement 10/09/2016 - CARLOS - encephalopathy - somewhat improved - s/p recurrent sepsis due to HCAP and UTI - h/o HCAP due to MDR acinetobacter and ESBL E. Coli - colonization with ESBL and CRE - h/o recurrent UTI due to ESBL E. Coli - funguria; Robin replaced on o11/13/2016 - h/o bacteremia 10/28/2016 due to enterococcus faecium. Midline was dc'd - s/p severe sepsis due to UTI, prob aspiration after hematemesis and multiple intubation events, and HCAP - acute on chronic anemia requiring blood transfusion - s/p acute UGIB of unclear etiology; s/p EGD 10/01/2016 showing no active bleeding site - HLD and fatty liver - h/o alcoholism - chronic diastolic HF - diverticulosis, seen on CT at [facility] - severe protein calorie malnutrition - thrush - treated with nystatin - h/o fall and trauma to R foot prior to recent admission. No fracture seen on plain film recommendations: - pending results: blood cultures x2 (negtaive to date), urine culture ( negative to date), respiratory culture (GNR), procalcitonin (pending) - continue empiric linezolid, meropenem (originally started on 12/07/2016) and nebulized colistin. Will adjust his antibiotics based on the final culture results. 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 Childers. Critical care time spent: 30 min Problems: Consultation Date/Type/Reason Admit Date/Time Dec 11, 2016 at 20:22 Initial Consult Date 12/12/16 Type of Consultation: Infectious Disease Referring Provider: MATTHEW CALDERON MD 24 HR Interval Summary Free Text/Dictation Afebrile, tachycardic, getting blood transfusion for Hgb 7.6 then going back to [facility] per nursing staff. Selectively answers simple questions appropriately. Nods yes to pain. Nods no to SOB or diarrhea. Subjective hx not possible: pt non-verbal Exam/Review of Systems Vital Signs Vitals Vital Signs Date Time Temp Pulse Resp B/P Pulse Ox O2 Delivery O2 Flow Rate FiO2 12/13/16 12:00 104 12/13/16 11:00 29 117/73 100 Mechanical Ventilator 12/13/16 07:00 98.5 12/13/16 05:05 50 Intake and Output 12/12/16 12/12/16 12/13/16 15:00 23:00 07:00 Intake Total 600 ml 900 ml 800 ml Output Total 610 ml 550 ml Balance 600 ml 290 ml 250 ml Exam Constitutional: well developed, alert, frail, non-verbal Psych: confusion Head: atraumatic, normocephalic, other (temporal wasting) Eyes: nl conjunctiva, nl lids ENMT: nl external ears & nose Neck: other (trach) Respiratory: bilateral rales Cardiovascular: nl pulses, regular rate, other (tachycardic) Gastrointestinal: non-tender, soft Genitourinary: Condom catheter in place Musculoskeletal: nl extremities to inspection Extremities: normal pulses Results Result Diagram: 12/13/165 12/13/165 Results 24 hrs Laboratory Tests Test 12/13/16 04:45 White Blood Count 6.7 # Red Blood Count 2.73 L Hemoglobin 7.6 L Hematocrit 25.2 L Mean Corpuscular Volume 92.3 Mean Corpuscular Hemoglobin 27.8 L Mean Corpuscular Hemoglobin Concent 30.2 L Red Cell Distribution Width 18.1 H Platelet Count 315 Mean Platelet Volume 10.6 H Neutrophils % 60.8 Lymphocytes % 12.9 L Monocytes % 7.3 Eosinophils % 17.2 H Basophils % 0.9 Nucleated Red Blood Cells % 0.0 Neutrophils # 4.1 Lymphocytes # 0.9 Monocytes # 0.5 Eosinophils # 1.2 H Basophils # 0.1 Nucleated Red Blood Cells # 0.0 Sodium Level 148 H Potassium Level 3.4 L Chloride Level 101 Carbon Dioxide Level 31 Anion Gap 19 H Blood Urea Nitrogen 67 H Creatinine 2.19 H Glucose Level 98 Calcium Level 9.3 Medications Medications Current Medications Sodium Chloride (NS) 1,000 ml @ 40 mls/hr Q24H IV Last administered on t 11:12; Admin Dose 75 MLS/HR; Start 12/11/16 at 21:30 Acetaminophen (Tylenol Liquid) 650 mg Q6 PRN GTB PAIN AND OR ELEVATED TEMP; Start 12/11/16 at 23:00 Bacitracin/ Polymyxin B Sulfate (Polysporin Oint) 1 applic BID TOP Last administered on 12/13/16 10:03; Admin Dose 1 APPLIC; Start 12/12/16 at 09:00 Clonidine (Catapres) 0.1 mg Q6H PRN PO ELEVATED SYSTOLIC BP; Start 12/11/16 at 23:00 Docusate Sodium (Colace Liquid Cup) 100 mg BID PRN GTB CONSTIPATION; Start at 23:00 Folic Acid (Folic Acid) 1 mg DAILY GTB Last administered on 12/13/16 10:01; Admin Dose 1 MG; Start 12/12/16 at 09:00 Lactobacillus Acidophilus (Florajen3 Capsule) 1 each TID PO Last administered on 12/13/16 13:50; Admin Dose 1 EACH; Start 12/12/16 at 09:00 Lansoprazole (Prevacid) 30 mg DAILY@06 GTB Last administered on 12/13/16 06:30 ; Admin Dose 30 MG; Start 12/12/16 at 06:00 Lidocaine (Lidoderm) 1 patch DAILY TD Last administered on 12/13/16 10:02; Admin Dose 1 PATCH; Start 12/12/16 at 09:00 Lorazepam (Ativan) 2 mg Q4 PRN IV AGITATION; Start 12/11/16 at 23:00 Metoprolol Tartrate (Lopressor) 25 mg TID GTB Last administered on 12/13/16 10 :02; Admin Dose 25 MG; Start 12/12/16 at 09:00 Metoclopramide HCl (Reglan) 10 mg Q6 GTB Last administered on 12/13/16 13:00; Admin Dose 10 MG; Start 12/12/16 at 00:00 Miconazole Nitrate (Miconazole 2% Cr) 1 applic BID TOP Last administered on 10:03; Admin Dose 1 APPLIC; Start 12/12/16 at 09:00 Morphine Sulfate (morphine) 4 mg Q4H PRN IV PAIN LEVEL 7-10 Last administered on 12/12/16 14:51; Admin Dose 4 MG; Start 12/11/16 at 23:00 Nystatin (Nystatin Susp) 5 ml TID PO Last administered on 12/13/16 13:21; Admin Dose 5 ML; Start 12/12/16 at 09:00 Ondansetron HCl (Zofran Inj) 4 mg Q6H PRN IV NAUSEA AND/OR VOMITING; Start at 23:00 Oxcarbazepine (Trileptal) 300 mg BID PO Last administered on 12/13/16 10:01; Admin Dose 300 MG; Start 12/11/16 at 23:00 Quetiapine Fumarate (Seroquel) 25 mg Q6 PRN GTB AGITATION; Start 12/11/16 at 23 :00 Thiamine HCl 100 mg 100 mg DAILY GTB Last administered on 12/13/16 10:00; Admin Dose 100 MG; Start 12/12/16 at 09:00 Linezolid 300 ml @ 300 mls/hr Q12 IVPB Last administered on 12/13/16 10:02; Admin Dose 300 MLS/HR; Start 12/12/16 at 00:00 Meropenem/Sodium Chloride (Merrem 500mg/50 ml(Pmx)) 50 ml @ 100 mls/hr Q12 IVPB Last administered on 12/13/16 10:00; Admin Dose 100 MLS/HR; Start at 21:00 Procedures Procedures CXR 12/12/16: Cardiomegaly . Stable diffuse interstitial prominence in both lungs. Stable superimposed patchy alveolar infiltrates in both lungs. MADISON CHILDERS M.D. 12/14/16 1219: Assessment/Plan Assessment/Plan Additional Assessment/Plan Liseth attestation: I discussed the management with Pt and agree with above Exam/Review of Systems Results Result Diagram: 12/13/16 0445 12/13/16 0445 RODRIGUEZ GLOVER NP Dec 13, 2016 14:43 MADISON CHILDERS M.D. Dec 14, 2016 12:19
--- NOTE | 2016-12-13 17:39 | DS ---
Date/Time of Note Date/Time of Note DATE: 12/13/16 TIME: 17:21 Discharge Summary Admission/Discharge Info Admit Date/Time Dec 11, 2016 at 20:22 Discharge Date/Time Discharge Diagnosis -Possible recurrent sepsis, Dr. Laguerre is following an infection disease consultation. Continue antibiotics per ID, follow up on cultures and chest x- ray. -Acute on chronic respiratory failure, Dr. Souza is following in pulmonology consultation. Continue ventilatory support, breathing treatments, pulmonary toilet. -Pulmonary fibrosis -Chronic diastolic heart failure -Hyperlipidemia -History of upper GI bleed, status post EGD with no active bleeding noted -Dysphagia with PEG -Fatty liver -History of alcoholism Further recommendations based on clinical course. Plan of care discussed with Dr. Austin. Patient Condition: Fair Consults ID- Dr Sarabia Pulmonary- Dr Souza Nephro- Dr Cuadra Hx of Present Illness Hospital Course The patient is a 71-year-old male patient with c/o tachypnea and tachycardia and fever- 100.2 was admitted to intensive care unit of [facility] from [facility]. Patient has Past hx of pulmonary fibrosis and ventilator dependent respiratory failure with tracheostomy, PEG placement, sp upper GI bleed of unclear etiology, healthcare associated pneumonia with MDR Acinetobacter ESBL E. coli, and an E. coli ESBL urinary tract infection,fatty liver due to alcoholism, acute and chronic diastolic heart failure, atherosclerosis, diverticulosis without, functional quadriplegia, degenerative joint disease, hypertension. Patient was evaluated and treated by ID and got stable enough to transfer to [place] today. During assessment, patient is afebrile. at bed side- all Qs answered. dw staff Home Meds No Active Prescriptions or Reported Meds Primary Care Provider Time spent on discharge: > 30 minutes Pending Labs Laboratory Tests Test 12/13/16 04:45 White Blood Count 6.710^3/ul (4.8-10.8) Red Blood Count 2.7310^6/ul (4.70-6.10) Hemoglobin 7.6g/dl (14.0-18.0) Hematocrit 25.2% (42.0-52.0) Mean Corpuscular Volume 92.3fl (82.0-101.0) Mean Corpuscular Hemoglobin 27.8pg (29.0-33.0) Mean Corpuscular Hemoglobin Concent 30.2g/dl (32.0-37.0) Red Cell Distribution Width 18.1% (11.5-14.5) Platelet Count 56328^3/UL (140-415) Mean Platelet Volume 10.6fl (7.4-10.4) Neutrophils % 60.8% (39.0-77.0) Lymphocytes % 12.9% (15.0-51.0) Monocytes % 7.3% (0.0-11.0) Eosinophils % 17.2% (0.0-7.0) Basophils % 0.9% (0.0-2.0) Nucleated Red Blood Cells % 0.0/100WBC (0.0-0.0) Neutrophils # 4.110^3/ul (1.6-7.5) Lymphocytes # 0.910^3/ul (0.8-2.9) Monocytes # 0.510^3/ul (0.3-0.9) Eosinophils # 1.210^3/ul (0.0-0.5) Basophils # 0.110^3/ul (0.0-0.1) Nucleated Red Blood Cells # 0.010^3/ul (0.0-0.0) Sodium Level 148mmol/L (135-144) Potassium Level 3.4mmol/L (3.5-5.1) Chloride Level 101mmol/L (97-110) Carbon Dioxide Level 31mmol/L (21-31) Anion Gap 19 (8-16) Blood Urea Nitrogen 67mg/dl (7-20) Creatinine 2.19mg/dl (0.61-1.24) Glucose Level 98mg/dl (70-220) Calcium Level 9.3mg/dl (8.4-10.2) CHARITY DUKE Dec 13, 2016 17:33
[2016-12-13] MEDS: morphine 4 MG/ML VIAL IV PRN (17:41)
== END 2016-12-13 20:43 | DRG 871 ==
LOC: ICU 20:22
PROVIDERS: ADMIT Internal Medicine; ATTEND Internal Medicine
PROC: 5A1945Z Respiratory Ventilation, 24-96 Consecutive Hours (ICD-10-PCS; principal; 2016-12-11)
PROC: 30233N1 Transfusion of Nonautologous Red Blood Cells into Peripheral Vein, Percutaneous Approach (ICD-10-PCS; 2016-12-13)
DX: A41.9 Sepsis, unspecified organism (principal); J96.20 Acute and chronic respiratory failure, unspecified whether with hypoxia or hypercapnia; E43 Unspecified severe protein-calorie malnutrition; N17.9 Acute kidney failure, unspecified; J84.10 Pulmonary fibrosis, unspecified; Z93.0 Tracheostomy status; R53.2 Functional quadriplegia; Z99.81 Dependence on supplemental oxygen; I50.32 Chronic diastolic (congestive) heart failure; K76.0 Fatty (change of) liver, not elsewhere classified; E87.1 Hypo-osmolality and hyponatremia; R13.10 Dysphagia, unspecified; Z16.21 Resistance to vancomycin; Z68.22 Body mass index [BMI] 22.0-22.9, adult; Z93.1 Gastrostomy status; F10.21 Alcohol dependence, in remission; R45.1 Restlessness and agitation; E87.6 Hypokalemia
CPT/HCPCS: 36430; 36600; 71010; 80048; 80053; 81001; 81003; 82043; 82803; 83605; 84145; 84155; 84300; 85025; 86850; 86900; 86901; 86920; 87040; 87070; 87081; 87086; 94002; 94003; 94640; J2185; J2270; J7030; P9016

== ENCOUNTER 2017-01-09 16:47 | Inpatient (IN) | payer MEDICARE, MEDICAID ==
[~2017-01-09] VITALS: Ht 170.2 cm; Wt 61.8 kg
[2017-01-09] MEDS ORDERED: ACETAMINOPHEN 325 MG TAB NGT STA (16:58)
[2017-01-09 17:26] LABS: WHITE BLOOD COUNT 12.9 10^3/ul (4.8-10.8)
[2017-01-09 17:27] LABS: BASOPHIL # 0.2 10^3/ul (0.0-0.1); BASOPHILS % 1.2 % (0.0-2.0); EOSINOPHILS # 0.6 10^3/ul (0.0-0.5); EOSINOPHILS % 4.4 % (0.0-7.0); HEMATOCRIT 29.7 % (42.0-52.0); HEMOGLOBIN 9.2 g/dl (14.0-18.0); LYMPHOCYTES # 1.2 10^3/ul (0.8-2.9); LYMPHOCYTES % 9.4 % (15.0-51.0); MEAN CORPUSCULAR HEMOGLOBIN 28.5 pg (29.0-33.0); MEAN PLATELET VOLUME 9.9 fl (7.4-10.4); MONOCYTE # 0.9 10^3/ul (0.3-0.9); MONOCYTES % 7.1 % (0.0-11.0); NEUTROPHILS % 77.4 % (39.0-77.0); PLATELET COUNT 363 10^3/UL (140-415); RED BLOOD COUNT 3.23 10^6/ul (4.70-6.10); RED CELL DISTRIBUTION WIDTH 17.7 % (11.5-14.5)
[2017-01-09] MEDS ORDERED: SODIUM CHLORIDE 0.9% 1L BAG IV* STA (17:29)
[2017-01-09] MEDS ORDERED: LORAZEPAM 2 MG INJ IV ONE ×2 (17:30→20:00)
[2017-01-09] MEDS ORDERED: ACET325S GTB (17:39)
[2017-01-09] MEDS ORDERED: BEN25 GTB (17:40)
[2017-01-09] MEDS ORDERED: BETA15OI2 TP (17:42)
[2017-01-09] MEDS ORDERED: CEFE1PIG IVPB (17:44)
[2017-01-09 17:45] LABS: INR 0.97; PROTIME 12.9 Sec (12.2-14.2)
[2017-01-09] MEDS ORDERED: CLON-379 GTB (17:45)
[2017-01-09 17:46] LABS: PARTIAL THROMBOPLASTIN TIME 34.3 Sec (25.0-35.0)
[2017-01-09] MEDS ORDERED: DOCU-144 GTB (17:46)
[2017-01-09] MEDS ORDERED: IPRA3AMP INHALATION (17:47)
[2017-01-09] MEDS ORDERED: L.AC460C GTB (17:48)
[2017-01-09] MEDS ORDERED: FOLI-49 GTB (17:49)
[2017-01-09] MEDS ORDERED: LANS30CA GTB (17:49)
[2017-01-09 17:50] LABS: ALBUMIN 3.6 g/dl (3.3-4.9); ALBUMIN/GLOBULIN RATIO 0.69; CALCIUM 9.8 mg/dl (8.4-10.2); CREATININE 0.78 mg/dl (0.61-1.24); POTASSIUM 4.8 mmol/L (3.5-5.1); TOTAL PROTEIN 8.8 g/dl (6.1-8.1)
[2017-01-09] MEDS ORDERED: IMO2 GTB (17:50)
[2017-01-09] MEDS ORDERED: LORA1TAB GTB (17:51)
[2017-01-09] MEDS ORDERED: METO-429 GTB (17:53)
[2017-01-09 17:54] LABS: ADD UMIC NO; UR ASCORBIC ACID 40 mg/dL (NEGATIVE); UR BILIRUBIN (Dip) NEGATIVE (NEGATIVE); UR BLOOD (Dip) NEGATIVE (NEGATIVE); UR CLARITY SLIGHTLY CLOUDY (CLEAR); UR COLOR YELLOW (YELLOW); UR GLUCOSE (Dip) NEGATIVE (NEGATIVE); UR KETONES (Dip) NEGATIVE (NEGATIVE); UR LEUKOCYTE ESTERASE (Dip) NEGATIVE Leu/ul (NEGATIVE); UR NITRITE (Dip) NEGATIVE (NEGATIVE); UR RBC 0 /HPF (0-5); UR SPECIFIC GRAVITY (Dip) 1.014 (1.003-1.030); UR TOTAL PROTEIN (Dip) NEGATIVE (NEGATIVE); UR UROBILINOGEN (Dip) NEGATIVE (NEGATIVE)
[2017-01-09] MEDS ORDERED: HYDR-906 GTB (17:59)
[2017-01-09] MEDS ORDERED: DIPHENHYDRAMINE 50 MG INJ IV ONE (18:00)
[2017-01-09] MEDS ORDERED: OXCA300T41 GTB (18:00)
[2017-01-09 18:01] LABS: TROPONIN-I 0.012 ng/ml (0.00-0.12)
[2017-01-09] MEDS ORDERED: PROT946L GTB (18:01)
[2017-01-09] MEDS ORDERED: CEFEPIME 2GM/50 ML (PMX) 50 ML IVPB STA (18:02)
[2017-01-09] MEDS ORDERED: ASCO500S2 GTB (18:05)
[2017-01-09] MEDS ORDERED: VANCOMYCIN HCL IV* (18:08)
[2017-01-09] MEDS ORDERED: [UNRECOGNIZED DRUG - OTHER] GTB (18:10)
[2017-01-09] MEDS ORDERED: VANCOMYCIN 1 GM (PMX) 250 ML IVPB ONE (18:30)
--- NOTE | 2017-01-09 18:35 | ERA ---
ER Documentation Chief Complaint Date/Time DATE: 01/09/17 TIME: 18:25 Chief Complaint BIBA FOR FEVER,TACHYCARDIA Pt FOR SNF.TRACHE TO VENT HPI This is a 71-year-old male who was brought in by ambulance for evaluation of fever and weakness from his [facility] facility. This patient is a trach to vent with a PEG tube and I will sign of a fever at his [facility]. The patient is unable to give a history secondary to his clinical condition however his states that the patient has had a fever for the past 24 hours it appears to be mildly irritated. ROS All systems reviewed and are negative except as per history of present illness. Medications Home Meds Reported Medications [Multiple Mineral Liq] No Conflict Check, 30 ML GTB DAILY 01/09/17 [Vancomycin Hcl] No Conflict Check, 850 MG IV* Q24H for SEPSIS for 10 Days END DATE 01/13/17 01/09/17 Ascorbic Acid* (Vitamin C* Liq) 500 Mg/5 Ml Syrup, 500 MG GTB DAILY, ML 01/09/17 Protein Supplement (Promod) 946 Ml Liquid, 30 ML GTB BID 01/09/17 Oxcarbazepine* (Oxcarbazepine*) 300 Mg Tablet, 300 MG GTB BID, TAB 01/09/17 Hydrocodone/Acetaminophen ([place] 5-325 Tablet) 1 Each Tablet, 1 EACH GTB Q4H Y for PAIN LEVEL 4-10/10, TAB 01/09/17 Metoprolol Tartrate* (Lopressor*) 50 Mg Tab, 50 MG GTB BID, #60 TAB HOLD IF SBP<110 OR HR<60 01/09/17 Lorazepam* (Lorazepam*) 1 Mg Tablet, 1 MG GTB Q4H Y for ANXIETY, #30 TAB 01/09/17 Loperamide Hcl* (Loperamide Hcl*) 2 Mg Cap, 2 MG GTB Q4H, CAP 01/09/17 Lansoprazole* (Lansoprazole*) 30 Mg Capsule.dr, 30 MG GTB DAILY, CAP 01/09/17 Folic Acid* (Folic Acid*) 1 Mg Tablet, 1 MG GTB DAILY, TAB 01/09/17 L Acidophil/B Lactis/B Longum (FLORAJEN3 CAPSULE) 460 Mg Capsule, 460 MG GTB TID , CAP 01/09/17 Ipratropium-Albuterol (Ipratropium-Albuterol) 0.5-3 Mg/3 Ml Ampul.neb, 3 ML INHALATION Q2H, #30 VIAL 01/09/17 Docusate Sodium* (Colace*) 100 Mg Capsule, 100 MG GTB BID, #60 CAP 01/09/17 Clonidine Hcl* (Clonidine Hcl*) 0.1 Mg Tab, 0.1 MG GTB Q6, TAB FOR HTN SBP>170 01/09/17 Cefepime Hcl/Ivpb* (Cefepime- 1 Gm/50 Ml*) 1 Gm/50 Ml Piggyback, 1 GM IVPB Q12, EA END DATE 01/14/17 01/09/17 Betamethasone Valerate (Betamethasone Valerate) 15 Gm Oint..gm., 15 GM TP DAILY , #1 TUB END DATE 01/10/17 01/09/17 Diphenhydramine Hcl* (Benadryl*) 25 Mg Cap, 25 MG GTB Q6H Y for ITCHING, CAP 01/09/17 Acetaminophen* (Acetaminophen* Susp) 325 Mg/10.15 Ml Solution, 650 MG GTB Q6H Y for FOR FEVER T>101, ML AND FOR PL1-3/10 01/09/17 Allergies Allergies: Coded Allergies: miconazole (Verified Allergy, Unknown, TOPICAL MICONAZOLE (OINTMENT), 01/09) PMhx/Soc History of Surgery: Yes (GT PLACEMENT) Anesthesia Reaction: No Hx Neurological Disorder: No Hx Respiratory Disorders: Yes (RESPIRATOTY FAILURE) Hx Cardiac Disorders: Yes (HTN) Hx Psychiatric Problems: No Hx Miscellaneous Medical Probl: Yes (TRACH/G-TUBE) Hx Alcohol Use: No Hx Substance Use: No Hx Tobacco Use: No Smoking Status: Never smoker Physical Exam Vitals Vital Signs Date Time Temp Pulse Resp B/P Pulse Ox O2 Delivery O2 Flow Rate FiO2 01/09/17 18:12 127 18 124/64 100 Room Air 01/09/17 17:15 147 35 97 100 01/09/17 17:06 101.3 147 36 150/91 100 01/09/17 17:01 Nasal Cannula 2 Physical Exam INITIAL VITAL SIGNS: Reviewed by me GENERAL: The patient is poorly developed elderly male, trached event the pain HEENT: pupils equal, round, and reactive to light. EOMI. There is no scleral icterus. NECK: Tracheostomy in place, C-spine is soft and supple, there is no meningismus. There is no cervical lymphadenopathy. LUNGS: Coarse breath sounds bilaterally. There are no rales, wheezes or rhonchi. HEART: Tachycardic, no murmurs, clicks, rubs or gallops. ABDOMEN: PEG tube in place soft, non-tender, non-distended. There are bowel sounds in all four quadrants. No rebound or guarding. EXTREMITIES: There is no peripheral cyanosis or edema. No focal swelling or erythema. NEUROLOGICAL: Contracted extremities unable to assess all cranial nerve SKIN: There is no apparent rash or petechiae. HEME/LYMPHATIC: There is no evidence of excessive bruising or lymphedema. PSYCHIATRIC: The patient does not appear anxious or depressed. Result Diagram: 01/09/17 1700 01/09/17 1700 Results 24 hrs Laboratory Tests Test 01/09/17 17:00 01/09/17 17:14 01/09/17 17:25 White Blood Count 12.910^3/ul Red Blood Count 3.2310^6/ul Hemoglobin 9.2g/dl Hematocrit 29.7% Mean Corpuscular Volume 92.0fl Mean Corpuscular Hemoglobin 28.5pg Mean Corpuscular Hemoglobin Concent 31.0g/dl Red Cell Distribution Width 17.7% Platelet Count 76738^3/UL Mean Platelet Volume 9.9fl Neutrophils % 77.4% Lymphocytes % 9.4% Monocytes % 7.1% Eosinophils % 4.4% Basophils % 1.2% Nucleated Red Blood Cells % 0.0/100WBC Neutrophils # (Manual) 10.010^3/ul Lymphocytes # 1.210^3/ul Monocytes # 0.910^3/ul Eosinophils # 0.610^3/ul Basophils # 0.210^3/ul Nucleated Red Blood Cells # 0.010^3/ul Prothrombin Time 12.9Sec Prothrombin Time Ratio 1.0 INR International Normalized Ratio 0.97 Activated Partial Thromboplast Time 34.3Sec Sodium Level 140mmol/L Potassium Level 4.8mmol/L Chloride Level 82mmol/L Carbon Dioxide Level 47mmol/L Anion Gap 23 Blood Urea Nitrogen 44mg/dl Creatinine 0.78mg/dl Glucose Level 95mg/dl Lactic Acid Level 1.3mmol/L Calcium Level 9.8mg/dl Total Bilirubin 0.0mg/dl Direct Bilirubin 0.00mg/dl Indirect Bilirubin 0.0mg/dl Aspartate Amino Transf (AST/SGOT) 35IU/L Alanine Aminotransferase (ALT/SGPT) 36IU/L Alkaline Phosphatase 269IU/L Troponin I 0.012ng/ml Total Protein 8.8g/dl Albumin 3.6g/dl Globulin 5.20g/dl Albumin/Globulin Ratio 0.69 Bedside Glucose 109mg/dL Urine Color YELLOW Urine Clarity SLIGHTLY CLOUDY Urine pH 5.0 Urine Specific [place] 1.014 Urine Ketones NEGATIVEmg/dL Urine Nitrite NEGATIVEmg/dL Urine Bilirubin NEGATIVEmg/dL Urine Urobilinogen NEGATIVEmg/dL Urine Leukocyte Esterase NEGATIVELeu/ul Urine Microscopic RBC 0/HPF Urine Microscopic WBC 1/HPF Urine Hemoglobin NEGATIVEmg/dL Urine Glucose NEGATIVEmg/dL Urine Total Protein NEGATIVEmg/dl Current Medications Medications (Trade) Dose Ordered Sig/Dawna Route PRN Reason Start Time Stop Time Status Last Admin Dose Admin Acetaminophen (Tylenol Tab) 650 mg ONCE STAT NGT 01/09/17 16:58 01/09/17 16:59 DC 01/09/17 17:38 Sodium Chloride (NS) 2,170 ml BOLUS OVER 2 HOURS STAT IV* 01/09/17 17:29 01/09/17 17:36 DC 01/09/17 17:42 Lorazepam (Ativan) 1 mg ONCE ONCE IV 01/09/17 17:30 01/09/17 17:36 DC Diphenhydramine HCl 50 mg 50 mg ONCE ONCE IV 01/09/17 18:00 01/09/17 18:01 DC 01/09/17 17:38 Cefepime HCl 50 ml @ 100 mls/hr ONCE STAT IVPB 01/09/17 18:02 01/09/17 18:31 01/09/17 18:18 Vancomycin HCl (Vancocin) 250 ml @ 125 mls/hr ONCE ONCE IVPB 01/09/17 18:30 01/09/17 20:29 Procedures/MDM Chest X-ray 1V Interpreted by me: Soft Tissue: 1. Tracheostomy tube remains good position. 2. Stable mild cardiomegaly and an sclerotic aortic calcification. 3. Diffuse chronic interstitial lung fibrosis. 4. No acute infiltrates seen Bones: No acute abnormalities Mediastinum/Cardiac Silhouette/Lungs: [No acute abnormalities] EKG: Rate/Rhythm: Sinus tachycardia QRS, ST, T-waves: [No changes consistent w/ acute ischemia] Impression: [No evidence of ischemia or arrhythmia] This 71-year-old male presents to the ER for evaluation of a fever. The patient was febrile with a temp of 101.3 Fahrenheit on his arrival. He was tachycardic. Septic workup in the emergency room. At this time his urine is clear, however chest x-ray does show some interstitial fibrosis and the patient did have coarse breath sounds so he could have early pneumonia. The patient was started on vancomycin and cefepime. The patient was given 30 cc/kg of IV normal saline. Lactic acid is less than 4 at this time and he has a mean arterial pressure greater than 65 with no need for vasopressors. The patient will be placed in for admission at this time and there is primary care physician Dr. dow for IV fluids and antibiotics with reevaluation in the morning. Patient was given Tylenol via PEG tube for his fever and his symptoms have started to improve on the emergency room. The patient's heart rate has dropped by 30 bpm and he appears to be less agitated after receiving Benadryl. Critical Care: Excluding all billable procedures Time: 38 minutes Treatments/Evaluations: Close monitoring and treatment of unstable vital signs, cardiorespiratory, and neurologic status, while maintaining tight balance of fluid, respiratory, and cardiac interventions. Departure Diagnosis: Primary Impression: SIRS (systemic inflammatory response syndrome) Additional Impressions: Respiratory distress Normocytic anemia Condition: Stable ANISA RUELAS DO Jan 09, 2017 18:35
[2017-01-09] MEDS ORDERED: ACETAMINOPHEN 325 MG TAB PO PRN ×2 (19:00→22:00)
[2017-01-09] MEDS ORDERED: HALOPERIDOL 5 MG INJ IM ONE (19:00)
[2017-01-09] MEDS ORDERED: ONDANSETRON 4 MG INJ IV PRN ×2 (19:00→22:00)
[2017-01-09 21:41] LABS: AADO2 Arterial 296.4 mmHg (7.0-24.0); Allen Test ACCEPTAB; Arterial Base Excess 10.4 mmol/L (-3.0-3); Arterial COHb 0.3 % (0.0-3.0); Arterial Fraction of Oxyhgb 97.7 % (93.0-99.0); Arterial HCO3 37.4 mmol/L (22.0-26.0); Arterial MetHb 0.2 % (0.0-1.5); Arterial Total Hemglobin 9.2 g/dl (12.0-18.0); MODE VENT - AC
[2017-01-09] MEDS: QUETIAPINE 25 MG TAB PO PRN (21:42)
[2017-01-09] MEDS ORDERED: NACL 0.9% 3 ML SYG IV SCH (22:00)
[2017-01-09] MEDS ORDERED: VANCOMYCIN IV PER PHARMACY XX SCH (22:00)
[2017-01-10] VITALS (26 sets, daily range): BP systolic 82–157; BP diastolic 36–109; PULSE 111–144; RESP 20–45; TEMP 99.1; Ht 170.2 cm; Wt 61.8 kg
[2017-01-10] MEDS: morphine 2 MG INJ IV PRN ×3 (03:24→22:54)
[2017-01-10] MEDS: QUETIAPINE 25 MG TAB PO PRN (03:34)
[2017-01-10] MEDS ORDERED: LORAZEPAM 2 MG INJ IV STA (03:50)
[2017-01-10 05:39] LABS: BASOPHIL # 0.1 10^3/ul (0.0-0.1); BASOPHILS % 1.1 % (0.0-2.0); EOSINOPHILS # 0.4 10^3/ul (0.0-0.5); EOSINOPHILS % 5.6 % (0.0-7.0); HEMATOCRIT 23.7 % (42.0-52.0); HEMOGLOBIN 7.3 g/dl (14.0-18.0); LYMPHOCYTES # 0.8 10^3/ul (0.8-2.9); MEAN CORPUSCULAR HEMOGLOBIN 28.5 pg (29.0-33.0); MEAN CORPUSCULAR HGB CONC 30.8 g/dl (32.0-37.0); MEAN CORPUSCULAR VOLUME 92.6 fl (82.0-101.0); MEAN PLATELET VOLUME 9.6 fl (7.4-10.4); MONOCYTE # 0.6 10^3/ul (0.3-0.9); MONOCYTES % 7.9 % (0.0-11.0); NEUTROPHILS % 74.1 % (39.0-77.0); PLATELET COUNT 216 10^3/UL (140-415); RED BLOOD COUNT 2.56 10^6/ul (4.70-6.10); RED CELL DISTRIBUTION WIDTH 18.1 % (11.5-14.5); WHITE BLOOD COUNT 7.1 10^3/ul (4.8-10.8)
[2017-01-10] MEDS: PANTOPRAZOLE (EC) 40 MG TAB PO SCH (06:00)
[2017-01-10 06:19] LABS: ALBUMIN/GLOBULIN RATIO 0.8
[2017-01-10 06:20] LABS: ALBUMIN 2.8 g/dl (3.3-4.9); BILIRUBIN,INDIRECT 0.1 mg/dl (0-1.1); BILIRUBIN,TOTAL 0.1 mg/dl (0.2-1.3); CALCIUM 8.8 mg/dl (8.4-10.2); CREATININE 0.65 mg/dl (0.61-1.24); MAGNESIUM 1.7 mg/dl (1.7-2.5); POTASSIUM 3.6 mmol/L (3.5-5.1); TOTAL PROTEIN 6.3 g/dl (6.1-8.1)
[2017-01-10] MEDS: VANCOMYCIN 1 GM in NS 250 ML IVPB SCH ×2 (07:06→20:43)
[2017-01-10 07:19] LABS: THYROID STIMULATING HORMONE 1.17 MIU/L (0.465-4.680)
[2017-01-10] MEDS ORDERED: HALOPERIDOL 5 MG INJ ONE (08:46)
[2017-01-10] MEDS ORDERED: HALOPERIDOL 5 MG INJ IM ONE (09:00)
[2017-01-10] MEDS ORDERED: LORAZEPAM 2 MG INJ IM ONE (09:00)
[2017-01-10] MEDS: CEFEPIME 1GM/50 ML (PMX) 50 ML IVPB SCH ×2 (09:29→21:50)
--- NOTE | 2017-01-10 09:53 | RADRPT ---
PROCEDURE: Chest x-ray CLINICAL INDICATION: Shortness of breath TECHNIQUE: Chest single view COMPARISON: 12/13/2016 FINDINGS: Tracheostomy tube remains in good position. There is stable mild cardiomegaly and atherosclerotic a ortic calcification. Coarse interstitial bilateral lung markings are seen consistent with interstit ial lung fibrosis. No definite acute infiltrates are identified. Costophrenic angles are sharp. B kobe thorax is unremarkable. IMPRESSION: 1. Tracheostomy tube remains good position. 2. Stable mild cardiomegaly and an sclerotic aortic calcification. 3. Diffuse chronic interstitial lung fibrosis. 4. No acute infiltrates seen RPTAT: HH .Jeffrey Clemons MD, MD Date Time Electronically viewed and signed by .Jeffrey Clemons MD, on 01/09/2017 18:16 .W/
[2017-01-10] MEDS ORDERED: DIPHENHYDRAMINE 50 MG INJ IV ONE ×2 (10:00→12:30)
[2017-01-10] MEDS ORDERED: LORAZEPAM 2 MG INJ IV ONE ×2 (10:00→12:30)
--- NOTE | 2017-01-10 10:02 | RADRPT ---
PROCEDURE: CT head, without contrast. CLINICAL INDICATION: Amputation. TECHNIQUE: Noncontrast CT examination of the head, with axial, sagittal and coronal reformatted im ages. Automated dose exposure control was employed. CTDI: 41.59 and DLP: 720.23. COMPARISON: None. FINDINGS: Chronic changes of atrophy and small vessel disease of white matter. No acute hemorrhage. Subarachnoid spaces are substantially preserved and symmetric. Ventricles ar e unremarkable. No mass effect. Alvarado-white matter distinction is preserved without evident decreased attenuation t o suggest acute or recent infarct. Sinuses and osseous structures are unremarkable. IMPRESSION: Chronic changes of atrophy and small vessel disease white matter, and otherwise, no acute process in the head. RPTAT: [facility] Physician Power Date Time Electronically viewed and signed by Physician Power on 01/10/2017 00:47 RS/
--- NOTE | 2017-01-10 10:56 | HP ---
DATE OF ADMISSION: 01/09/2017 CHIEF COMPLAINT: Fever and agitation. HISTORY OF PRESENT ILLNESS: The patient is a 71-year-old gentleman with history of pulmonary fibrosis, ventilator dependent respiratory failure with tracheostomy, dysphagia with PEG, history of pneumonia, chronic diastolic congestive heart failure, hyperlipidemia, history of fatty liver, history of alcoholism. Patient was a resident at [facility], where he developed fever and agitation while on ventilatory support, and the patient was brought by ambulance for further evaluation and management. On evaluation in the emergency room the patient was found to have a temperature of 101.3, and tachycardia. The patient's white blood cells response elevated to 12,900. The patient's lung sounds on auscultation showed coarse rhonchi. The patient was unable to provide any history, most of the history was obtained from talking to the patient's at the bedside and the nursing medical staff. The patient was diagnosed with possible pneumonia and was started on broad- spectrum antibiotics. No nausea or vomiting was reported, and the patient will be admitted for further evaluation and management to a telemetry floor. PAST MEDICAL HISTORY: Per HPI. PAST SURGICAL HISTORY: Status post tracheostomy and status post G-tube placement. FAMILY HISTORY: Noncontributory. SOCIAL HISTORY: The patient is currently a resident at a retirement facility. The patient has a remote history of alcoholism. No history of tobacco use. No history of illicit drug use. 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 ALLERGIES: THE PATIENT IS ALLERGIC TO MICONAZOLE. MEDICATIONS: Home medications include Tylenol, clonidine, Colace, folic acid, [place] p.r.n. pain, [____], lansoprazole, Ativan p.r.n. agitation, metoprolol, and oxcarbazepine. REVIEW OF SYSTEMS: A 12-point review of systems is negative unless otherwise mentioned in the HPI. PHYSICAL EXAMINATION: GENERAL: A well-developed gentleman on ventilator support via tracheostomy, with mild agitation and tachycardia. VITAL SIGNS: Temperature is 101.3, pulse of 127, blood pressure is 124/64, respiratory rate 18, oxygen saturation is 100 percent on FiO2. HEENT: Head is atraumatic and normocephalic. Pupils are equal, round and reactive to light and accommodation. Oral mucosa is pink and moist. NECK: Supple. There is a tracheostomy at the base of the neck with no signs of bleeding. LUNGS: The patient has a coarse rhonchi bilaterally. CARDIOVASCULAR: Normal S1 and S2. No murmurs noted. The patient is tachycardic. ABDOMEN: Round, soft, nontender and nondistended. G-tube with intact stoma. GENITOURINARY: The patient has a Robin catheter. EXTREMITIES: Mild edema. No [____]. NEUROLOGIC: The patient is awake. Moves all extremities. LABORATORY DATA: Laboratory data on admission, CBC white blood cells 12.9, hemoglobin 9.9, hematocrit 29.7, platelet count 362,000. Chemistry, sodium was 140, potassium 4.8, chloride 82, carbon dioxide 47, anion gap 23, BUN is 54, creatinine [____], glucose 95, AST 35, ALT 36, alkaline phosphatase 269, troponin 0.012. ASSESSMENT AND PLAN: 1. Possible sepsis. We will obtain urine and blood cultures and a chest x-ray. 2. Possible pneumonia. Continue broad-spectrum antibiotics. We will obtain a sputum culture. The patient had a history of [____] from infectious disease consultation. 3. Ventilatory dependent respiratory failure. [____] to follow the patient in Pulmonology consultation and continue ventilatory support and bronchodilators and pulmonary toilet. 4. Pulmonary fibrosis. 5. Chronic diastolic congestive heart failure. 6. Dysphagia with PEG. 7. Fatty liver. We will obtain an ABG. Anemia. Continue sequential compression device for deep venous thrombosis prophylaxis [____] 8. prophylaxis. Further recommendations based on clinical course. Plan of care discussed with [____]. Dictated By: Seble Lord NP /indio/dionte /Document#: [id number]
--- NOTE | 2017-01-10 11:05 | RADRPT ---
PROCEDURE: XR Chest. CLINICAL INDICATION: r/o PNA TECHNIQUE: Single frontal view of the chest was obtained. COMPARISON: Chest x-ray from 01/09/2017 FINDINGS: A tracheostomy is again noted. There is stable mild cardiomegaly. There is stable diffuse chronic interstitial lung disease. No definite focal infiltrates are identified. There is no significant pleural effusion or pneumothorax. IMPRESSION: No significant interval change. RPTAT: EE Freddie Yoon Physician Date Time Electronically viewed and signed by Freddie Yoon Physician on 01/10/2017 10:23 RA/
--- NOTE | 2017-01-10 13:24 | CONS ---
DATE OF ADMISSION: 01/09/2017 DATE OF CONSULTATION: 01/10/2017 REASON FOR CONSULTATION: Ventilator management. Thank you, , for this consultation. HISTORY OF PRESENT ILLNESS: This is a 71-year-old gentleman transferred from half-way facility for evaluation of fever and agitation. Patient is currently nonverbal, on mechanical ventilation. His history is entirely from the chart. It appears he has had a fever of 101, with increased tachypnea and leukocytosis with worsening dyspnea. No hemoptysis, hematemesis. Currently hemodynamically stable. PAST MEDICAL HISTORY: Includes: 1. Vent dependent respiratory failure. 2. dysphagia. 3. Congestive cardiac failure. 4. History of pulmonary fibrosis. 5. History of alcohol abuse. MEDICATIONS: Per chart. ALLERGIES: MICONAZOLE. SOCIAL HISTORY: Currently a nonsmoker or alcohol intake. FAMILY HISTORY: Noncontributory. PHYSICAL EXAMINATION: GENERAL: Chronically ill-appearing gentleman, appears comfortable at rest, on mechanical ventilation. VITAL SIGNS: Temperature 98, pulse is 130, blood pressure 128/85, O2 sat 96 percent on 50 percent FiO2. NECK: Trach site clean and intact. CARDIAC: S1, S2. No added sounds or murmurs. CHEST: Diminished air entry bilaterally. ABDOMEN: Soft, nontender. No guarding or rebound. EXTREMITIES: No clubbing, cyanosis, edema. NEUROLOGIC: Generalized weakness. IMAGING STUDIES: Admission chest x-ray shows diffuse chronic interstitial pulmonary fibrosis. No acute infiltrates. CT of the brain shows no acute findings. LABORATORY: Urinalysis was unremarkable. Initial blood gas showed a pH of 7.36, pCO2 of 66, PO2 of 130. IMPRESSION: 1. Chronic hypoxemic respiratory failure, secondary to pulmonary fibrosis with possible tracheobronchitis. 2. Severe sepsis on admission, now improved with current antibiotics of cefepime and vancomycin. 3. Dysphagia with gastrostomy tube. 4. Incomplete data. PLAN: 1. Continue current broad-spectrum antibiotics. 2. Vent support. 3. Tube feeding. 4. DVT and GI prophylaxis. Dictated By: Manolo Souza MD /indio/agnes /Document#: [id number]
[2017-01-10] MEDS: HALOPERIDOL 5 MG INJ IM PRN (15:24)
[2017-01-10] MEDS ORDERED: HALOPERIDOL 5 MG INJ IM PRN (15:30)
[2017-01-10] MEDS ORDERED: LORAZEPAM 1 MG TAB GTB PRN (17:00)
[2017-01-10] MEDS: ALBUTEROL/IPRATROPIUM (NEB) 3 ML AMP NEB SCH ×3 (17:00→21:00)
[2017-01-10] MEDS ORDERED: METOPROLOL 5 MG INJ IV PRN (17:00)
--- NOTE | 2017-01-10 17:20 | PN ---
Date/Time of Note Date/Time of Note DATE: 01/10/17 TIME: 16:50 Assessment/Plan VTE Prophylaxis VTE Prophylaxis Intervention: SCD's Lines/Catheters Urinary Cath still in place: Yes Reason Cath still needed: urinary retention Assessment/Plan Assessment/Plan - Possible sepsis. - Transfer to ICU - ID consult- Dr Childers notified - fu urine and blood cultures - Possible pneumonia. - Pulmonary follows - ID follows - Tachycardia - Cardiology consult- Dr Juarez Metoprolol 5 mg IVP q4 HR prn HR > 120 - resume Metoprolol via GT - Ventilatory dependent respiratory failure. - Pulmonology consultation- Dr Souza notified - continue ventilatory support - bronchodilators and pulmonary toilet. - Pulmonary fibrosis. - Chronic diastolic congestive heart failure. - Dysphagia with PEG. - ASPIRATION PRECAUTIONS - Fatty liver. We will obtain an ABG. - Anemia. - Sequential compression device for deep venous thrombosis prophylaxis -.Prevacid for GI prophylaxis Further recommendations based on clinical course. Total critical care time spent is 35 mins, Plan of care discussed with Dr. Austin.Dw Dr Austin Subjective 24 Hr Interval Summary Free Text/Dictation Patient is having tachycardia, will give hin Metoprolol 4 m IVP q4 HR prn HR > 120. Febrile- id notified. On FIO2 70 %- HYPOXIA, CRITICALLY ILL. Dr. Austin dw patients and update her . Will Transfer to ICU. Cardiology- Dr Shah notified dw staff Subjective hx not possible: pt non-verbal Constitutional: requiring IVF, requiring O2 Exam/Review of Systems Vital Signs Vitals Vital Signs Date Time Temp Pulse Resp B/P Pulse Ox O2 Delivery O2 Flow Rate FiO2 01/10/17 15:30 101.0 142 20 133/63 99 01/10/17 15:00 70 01/10/17 13:38 Mechanical Ventilator 10.0 Exam Constitutional: non-verbal, other (Agitated) Neck: other (trach intact) Respiratory: diminished breath sounds Cardiovascular: other (Tachycardia), regular rate and rhythm Gastrointestinal: other (GT intact), soft Musculoskeletal: nl extremities to inspection Extremities: normal pulses Neurological: lethargic Results Result Diagram: 01/10/17 0520 01/10/17 0520 Results 24 hrs Laboratory Tests Test 01/09/17 17:00 01/09/17 17:14 01/09/17 17:25 01/09/17 18:40 White Blood Count 12.9 H Red Blood Count 3.23 L Hemoglobin 9.2 L Hematocrit 29.7 L Mean Corpuscular Volume 92.0 Mean Corpuscular Hemoglobin 28.5 L Mean Corpuscular Hemoglobin Concent 31.0 L Red Cell Distribution Width 17.7 H Platelet Count 363 Mean Platelet Volume 9.9 Neutrophils % 77.4 H Lymphocytes % 9.4 L Monocytes % 7.1 Eosinophils % 4.4 Basophils % 1.2 Nucleated Red Blood Cells % 0.0 Neutrophils # (Manual) 10.0 H Lymphocytes # 1.2 Monocytes # 0.9 Eosinophils # 0.6 H Basophils # 0.2 H Nucleated Red Blood Cells # 0.0 Prothrombin Time 12.9 Prothrombin Time Ratio 1.0 INR International Normalized Ratio 0.97 Activated Partial Thromboplast Time 34.3 Sodium Level 140 Potassium Level 4.8 Chloride Level 82 L Carbon Dioxide Level 47 *H Anion Gap 23 H Blood Urea Nitrogen 44 H Creatinine 0.78 Glucose Level 95 Lactic Acid Level 1.3 0.7 Calcium Level 9.8 Total Bilirubin 0.0 L Direct Bilirubin 0.00 Indirect Bilirubin 0.0 Aspartate Amino Transf (AST/SGOT) 35 Alanine Aminotransferase (ALT/SGPT) 36 Alkaline Phosphatase 269 H Troponin I 0.012 Total Protein 8.8 H Albumin 3.6 Globulin 5.20 H Albumin/Globulin Ratio 0.69 Bedside Glucose 109 Urine Color YELLOW Urine Clarity SLIGHTLY CLOUDY A Urine pH 5.0 Urine Specific [place] 1.014 Urine Ketones NEGATIVE Urine Nitrite NEGATIVE Urine Bilirubin NEGATIVE Urine Urobilinogen NEGATIVE Urine Leukocyte Esterase NEGATIVE Urine Microscopic RBC 0 Urine Microscopic WBC 1 Urine Hemoglobin NEGATIVE Urine Glucose NEGATIVE Urine Total Protein NEGATIVE Test 01/09/17 20:33 01/09/17 21:24 01/10/17 05:20 Lactic Acid Level 1.1 Blood Gas Specimen Source Blood arterial Arterial Blood Date Drawn 01/09/2017 9:30:46 PM Arterial Blood pH (Temp corrected) 7.366 Arterial Blood pCO2 (Temp correct) 66.8 H Arterial Blood pO2 (Temp corrected) 130.9 H Arterial Blood HCO3 37.4 H Arterial Blood Base Excess 10.4 H Arterial Blood Oxygen Saturation 98.2 H Wai Test ACCEPTAB Arterial Blood Gas Puncture Site Right Radial Arterial Blood Carboxyhemoglobin 0.3 Arterial Blood Methemoglobin 0.2 Blood Gas A-a O2 Differential 296.4 H Oxyhemoglobin Percent 97.7 Total Hemoglobin 9.2 L Blood Gas Temperature 37.0 Blood Gas Respiration Rate 20.0 Blood Gas Actual Respiration Rate 50 Blood Gas Modality VENT - AC FiO2 70.0 Blood Gas Tidal Volume 500.0 Blood Gas Low PEEP Setting 5.0 Blood Gas Notified Whom JADE Blood Gas Notified Time 01/09/2017 9:41:21 PM White Blood Count 7.1 # Red Blood Count 2.56 #L Hemoglobin 7.3 #L Hematocrit 23.7 #L Mean Corpuscular Volume 92.6 Mean Corpuscular Hemoglobin 28.5 L Mean Corpuscular Hemoglobin Concent 30.8 L Red Cell Distribution Width 18.1 H Platelet Count 216 # Mean Platelet Volume 9.6 Neutrophils % 74.1 Lymphocytes % 11.0 L Monocytes % 7.9 Eosinophils % 5.6 Basophils % 1.1 Nucleated Red Blood Cells % 0.0 Neutrophils # (Manual) 5.3 Lymphocytes # 0.8 Monocytes # 0.6 Eosinophils # 0.4 Basophils # 0.1 Nucleated Red Blood Cells # 0.0 Sodium Level 139 Potassium Level 3.6 Chloride Level 97 # Carbon Dioxide Level 36 #H Anion Gap 10 # Blood Urea Nitrogen 34 H Creatinine 0.65 Glucose Level 84 Calcium Level 8.8 Magnesium Level 1.7 Total Bilirubin 0.1 L Direct Bilirubin 0.00 Indirect Bilirubin 0.1 Aspartate Amino Transf (AST/SGOT) 28 Alanine Aminotransferase (ALT/SGPT) 35 Alkaline Phosphatase 184 H B-Type Natriuretic Peptide 1980 H Total Protein 6.3 # Albumin 2.8 L Globulin 3.50 H Albumin/Globulin Ratio 0.80 Thyroid Stimulating Hormone (TSH) 1.170 Medications Medications Current Medications Quetiapine Fumarate 25 mg 25 mg Q6 PRN PO AGITATION/ANXIETY Last administered on 01/10/17 03:34; Admin Dose 25 MG; Start 01/09/17 at 21:30 Cefepime HCl (Maxipime 1gm/50 ml (Pmx)) 50 ml @ 100 mls/hr Q12 IVPB Last administered on 01/10/17 09:29; Admin Dose 100 MLS/HR; Start 01/10/17 at 09:00 Ondansetron HCl (Zofran Inj) 4 mg Q6H PRN IV NAUSEA AND/OR VOMITING; Start at 22:00 Acetaminophen (Tylenol Tab) 650 mg Q6H PRN PO PAIN LEVEL 1-3 OR FEVER Last administered on 01/10/17 15:46; Admin Dose 650 MG; Start 01/09/17 at 22:00 Morphine Sulfate (morphine) 2 mg Q4H PRN IV PAIN LEVEL 7-10 Last administered on 01/10/17 03:24; Admin Dose 2 MG; Start 01/09/17 at 22:00 Pantoprazole 40 mg 40 mg DAILY@06 PO ; Start 01/10/17 at 06:00 Vancomycin HCl (Vancocin) 250 ml @ 125 mls/hr Q12H IVPB Last administered on 07:06; Admin Dose 125 MLS/HR; Start 01/10/17 at 07:00 Miscellaneous Information (*Rx Drug Level Order Reminder*) 1 ONCE ONCE XX ; Start 01/11/17 at 06:00; Stop 01/11/17 at 06:01 Haloperidol (Haldol) 5 mg Q6 PRN IM Agitation Last administered on 01/10/17 15 :24; Admin Dose 5 MG; Start 01/10/17 at 15:30 Ascorbic Acid (Vitamin C) 500 mg DAILY GTB ; Start 01/11/17 at 09:00; Status UNV Clonidine (Catapres) 0.1 mg Q6 GTB ; Start 01/10/17 at 18:00; Status UNV Diphenhydramine HCl (Benadryl) 25 mg Q6H PRN GTB ITCHING; Start 01/10/17 at 17: 00; Status UNV Docusate Sodium (Colace) 100 mg BID PO ; Start 01/10/17 at 21:00; Status UNV Folic Acid (Folic Acid) 1 mg DAILY GTB ; Start 01/11/17 at 09:00; Status UNV Acetaminophen/ Hydrocodone Bitart ([place] (5/325)) 1 tab Q4H PRN GTB PAIN LEVEL 4-10/10; Start 01/10/17 at 17:00; Status UNV Albuterol/ Ipratropium (Duoneb) 3 ml Q2H NEB ; Start 01/10/17 at 17:00; Status UNV Lactobacillus Acidophilus (Florajen3 Capsule) 3 each TID PEG ; Start 01/10/17 at 21:00; Status UNV Lansoprazole (Prevacid) 30 mg DAILY GTB ; Start 01/11/17 at 09:00; Status UNV Lorazepam (Ativan) 1 mg Q4H PRN GTB ANXIETY; Start 01/10/17 at 17:00; Status UNV Metoprolol Tartrate (Lopressor) 50 mg BID GTB ; Start 01/10/17 at 21:00; Status UNV Oxcarbazepine (Trileptal) 300 mg BID GTB ; Start 01/10/17 at 21:00; Status UNV Multivitamins Therapeutic (Theragran) 1 tab DAILY PO ; Start 01/11/17 at 09:00; Status UNV Metoprolol Tartrate (Lopressor) 5 mg Q4 PRN IV NOTE; Start 01/10/17 at 17:00; Status UNV [facility] Jan 10, 2017 17:07
[2017-01-10] MEDS ORDERED: LORAZEPAM 2 MG INJ IV PRN (17:30)
[2017-01-10] MEDS: DIPHENHYDRAMINE 50 MG INJ IV PRN (17:44)
[2017-01-10 18:18] LABS: BASOPHIL # 0.1 10^3/ul (0.0-0.1); EOSINOPHILS # 0.3 10^3/ul (0.0-0.5); HEMATOCRIT 26.2 % (42.0-52.0); HEMOGLOBIN 7.9 g/dl (14.0-18.0); LYMPHOCYTES # 0.7 10^3/ul (0.8-2.9); LYMPHOCYTES % 4.6 % (15.0-51.0); MEAN CORPUSCULAR HEMOGLOBIN 27.7 pg (29.0-33.0); MEAN CORPUSCULAR HGB CONC 30.2 g/dl (32.0-37.0); MEAN CORPUSCULAR VOLUME 91.9 fl (82.0-101.0); MEAN PLATELET VOLUME 10.5 fl (7.4-10.4); MONOCYTE # 0.6 10^3/ul (0.3-0.9); MONOCYTES % 4.4 % (0.0-11.0); NEUTROPHILS % 87.8 % (39.0-77.0); PLATELET COUNT 291 10^3/UL (140-415); RED BLOOD COUNT 2.85 10^6/ul (4.70-6.10); RED CELL DISTRIBUTION WIDTH 18.6 % (11.5-14.5); WHITE BLOOD COUNT 14.3 10^3/ul (4.8-10.8)
[2017-01-10] MEDS: ACETAMINOPHEN 650MG/20.3ML CUP GTB PRN ×2 (18:38→22:54)
[2017-01-10] MEDS: DIPHENHYDRAMINE 25 MG CAP GTB PRN (18:39)
[2017-01-10] MEDS: SOD CHLORIDE 0.9% 1,000 ML IV SCH (18:39)
--- NOTE | 2017-01-10 19:18 | CONS ---
Date/Time of Note Date/Time of Note DATE: 01/10/17 TIME: 19:06 Assessment/Plan Assessment/Plan Chief Complaint/Hosp Course assessment/impression - possible, recurrent sepsis - underlying pulmonary fibrosis - mental status change after lorazepam - VDRF s/p trach 10/09/2016 - dysphagia s/p PEG placement 10/09/2016 - erythroderma of unclear etiology in 11/2016, resolved - h/o CARLOS - encephalopathy - somewhat improved - s/p recurrent sepsis due to HCAP and UTI - h/o HCAP due to MDR acinetobacter and ESBL E. Coli - colonization with ESBL and CRE - h/o recurrent UTI due to ESBL E. Coli - h/o funguria - h/o thrush - h/o bacteremia 10/28/2016 due to enterococcus faecium. Midline was dc'd - h/0 bacteremia 12/21/2016 due to enterococcus faecalis - s/p severe sepsis due to UTI, prob aspiration after hematemesis and multiple intubation events, and HCAP - s/p acute UGIB of unclear etiology; s/p EGD 10/01/2016 showing no active bleeding site - HLD and fatty liver - h/o alcoholism - chronic diastolic HF - diverticulosis, seen on CT at [facility] - severe protein calorie malnutrition - h/o fall and trauma to R foot recommendations: - pending results: blood cultures x2, urine culture. I ordered respiratory culture - continue IV vancomycin and cefepime (01/10/2017-) empirically management d/w Pt's , daughter and RN the critical care time I took to care for this Pt today was from 1800 to 1830 Problems: Consultation Date/Type/Reason Admit Date/Time Jan 09, 2017 at 18:37 Date of Consultation: Jan 10, 2017 Type of Consultation: ID Reason for Consultation fever, sepsis Referring Provider: MATTHEW AUSTIN MD Hx of Present Illness This is a 71 yo male with underlying pulmonary fibrosis who was admitted at [facility] in 09/2016 with UGIB of unclear etiology. EGD did not show active bleeding site. He likely aspirated after hematemesis; he also developed UTI due to ESBL+ E. coli. Pt eventually developed hypoxic respiratory failure and needed intubation. He failed weaning trials and received tracheostomy and PEG. He had a protracted course at [facility]: he developed pneumonia due to MDR acinetobacter and ESBL+E. coli, bacteremia due to enterococci. He received antibiotics for these and eventually transferred to [facility]. There, he continued to have MDR acinetobacter and ESBL+E. coli in his respiratory tract. He developed recurrent bacteremia due to enterococci and received treatment for this. At that time, he developed erythroderma of unclear etiology. Pt was eventually transferred to [facility]; there, he was more awake and was participating in PT according to this . Yesterday Pt reportedly became agitated and received lorazepam, total 3 times. After that, Pt became altered and agitated. According to his and daughter, Pt started moving all his extremities, seeing visual hallucinations. Then he spiked fever. As a result, Pt was sent back to ER. He had temp 102.8 and remains agitated. Pt was started on empiric IV vancomycin and cefepime. Pt is altered but shook his head when I asked him if he had pain in [facility]. Dr. Austin requested ID consultation on this Pt. Subjective hx not possible: pt non-verbal Past Medical History Medical History: congestive heart failure, coronary artery disease, GI bleed, high cholesterol, hypertension, urinary tract infection, other (pulmonary fibrosis, diverticulosis) Past Surgical History Past Surgical Hx: endoscopy, other (trach, PEG) Social History Alcohol Use: other (h/o alcoholism) Smoking Status: Never smoker Exam/Review of Systems Vital Signs Vitals Vital Signs Date Time Temp Pulse Resp B/P Pulse Ox O2 Delivery O2 Flow Rate FiO2 01/10/17 18:45 138 26 118/74 100 01/10/17 18:30 102.8 01/10/17 17:30 70 01/10/17 13:38 Mechanical Ventilator 10.0 Exam Constitutional: non-verbal, other (agitated) Psych: confusion Head: atraumatic, normocephalic, other (temporal wasting) Eyes: nl conjunctiva, nl lids ENMT: nl external ears & nose, nl nasal mucosa & septum Neck: other (trach) Respiratory: crackles/rales Cardiovascular: nl pulses, regular rate and rhythm Gastrointestinal: non-tender, other (GT), soft, No distended, No tender Musculoskeletal: nl extremities to inspection Extremities: No edema Neurological: confused, other (agitated, tremor of b/l hands and UEs) Skin: nl turgor, No rash or lesions Results Result Diagram: 01/10/17 1750 01/10/17 0520 Results 24 hrs Laboratory Tests Test 01/09/17 20:33 01/09/17 21:24 01/10/17 05:20 01/10/17 17:50 Lactic Acid Level 1.1 1.0 Blood Gas Specimen Source Blood arterial Arterial Blood Date Drawn 01/09/2017 9:30:46 PM Arterial Blood pH (Temp corrected) 7.366 Arterial Blood pCO2 (Temp correct) 66.8 H Arterial Blood pO2 (Temp corrected) 130.9 H Arterial Blood HCO3 37.4 H Arterial Blood Base Excess 10.4 H Arterial Blood Oxygen Saturation 98.2 H Wai Test ACCEPTAB Arterial Blood Gas Puncture Site Right Radial Arterial Blood Carboxyhemoglobin 0.3 Arterial Blood Methemoglobin 0.2 Blood Gas A-a O2 Differential 296.4 H Oxyhemoglobin Percent 97.7 Total Hemoglobin 9.2 L Blood Gas Temperature 37.0 Blood Gas Respiration Rate 20.0 Blood Gas Actual Respiration Rate 50 Blood Gas Modality VENT - AC FiO2 70.0 Blood Gas Tidal Volume 500.0 Blood Gas Low PEEP Setting 5.0 Blood Gas Notified Whom MA Blood Gas Notified Time 01/09/2017 9:41:21 PM White Blood Count 7.1 # 14.3 #H Red Blood Count 2.56 #L 2.85 L Hemoglobin 7.3 #L 7.9 L Hematocrit 23.7 #L 26.2 L Mean Corpuscular Volume 92.6 91.9 Mean Corpuscular Hemoglobin 28.5 L 27.7 L Mean Corpuscular Hemoglobin Concent 30.8 L 30.2 L Red Cell Distribution Width 18.1 H 18.6 H Platelet Count 216 # 291 # Mean Platelet Volume 9.6 10.5 H Neutrophils % 74.1 87.8 H Lymphocytes % 11.0 L 4.6 L Monocytes % 7.9 4.4 Eosinophils % 5.6 2.0 Basophils % 1.1 1.0 Nucleated Red Blood Cells % 0.0 0.0 Neutrophils # (Manual) 5.3 13 H Lymphocytes # 0.8 0.7 L Monocytes # 0.6 0.6 Eosinophils # 0.4 0.3 Basophils # 0.1 0.1 Nucleated Red Blood Cells # 0.0 0.0 Sodium Level 139 Potassium Level 3.6 Chloride Level 97 # Carbon Dioxide Level 36 #H Anion Gap 10 # Blood Urea Nitrogen 34 H Creatinine 0.65 Glucose Level 84 Calcium Level 8.8 Magnesium Level 1.7 Total Bilirubin 0.1 L Direct Bilirubin 0.00 Indirect Bilirubin 0.1 Aspartate Amino Transf (AST/SGOT) 28 Alanine Aminotransferase (ALT/SGPT) 35 Alkaline Phosphatase 184 H B-Type Natriuretic Peptide 1980 H Total Protein 6.3 # Albumin 2.8 L Globulin 3.50 H Albumin/Globulin Ratio 0.80 Thyroid Stimulating Hormone (TSH) 1.170 Medications Medications Current Medications Quetiapine Fumarate 25 mg 25 mg Q6 PRN PO AGITATION/ANXIETY Last administered on 01/10/17 03:34; Admin Dose 25 MG; Start 01/09/17 at 21:30 Cefepime HCl (Maxipime 1gm/50 ml (Pmx)) 50 ml @ 100 mls/hr Q12 IVPB Last administered on 01/10/17 09:29; Admin Dose 100 MLS/HR; Start 01/10/17 at 09:00 Ondansetron HCl (Zofran Inj) 4 mg Q6H PRN IV NAUSEA AND/OR VOMITING; Start at 22:00 Acetaminophen (Tylenol Tab) 650 mg Q6H PRN PO PAIN LEVEL 1-3 OR FEVER Last administered on 01/10/17 15:46; Admin Dose 650 MG; Start 01/09/17 at 22:00 Morphine Sulfate (morphine) 2 mg Q4H PRN IV PAIN LEVEL 7-10 Last administered on 01/10/17 18:38; Admin Dose 2 MG; Start 01/09/17 at 22:00 Pantoprazole 40 mg 40 mg DAILY@06 PO ; Start 01/10/17 at 06:00 Vancomycin HCl (Vancocin) 250 ml @ 125 mls/hr Q12H IVPB Last administered on 07:06; Admin Dose 125 MLS/HR; Start 01/10/17 at 07:00 Miscellaneous Information (*Rx Drug Level Order Reminder*) 1 ONCE ONCE XX ; Start 01/11/17 at 06:00; Stop 01/11/17 at 06:01 Haloperidol (Haldol) 5 mg Q6 PRN IM Agitation Last administered on 01/10/17 15 :24; Admin Dose 5 MG; Start 01/10/17 at 15:30 Clonidine (Catapres) 0.1 mg Q6 GTB Last administered on 01/10/17 18:39; Admin Dose 0.1 MG; Start 01/10/17 at 18:00 Diphenhydramine HCl (Benadryl) 25 mg Q6H PRN GTB ITCHING Last administered on 18:39; Admin Dose 25 MG; Start 01/10/17 at 17:00 Folic Acid (Folic Acid) 1 mg DAILY GTB ; Start 01/11/17 at 09:00 Acetaminophen/ Hydrocodone Bitart ([place] (5/325)) 1 tab Q4H PRN GTB PAIN LEVEL 4-10/10; Start 01/10/17 at 17:00 Lactobacillus Acidophilus (Florajen3 Capsule) 3 each TID PEG ; Start 01/10/17 at 21:00 Lansoprazole (Prevacid) 30 mg DAILY GTB ; Start 01/11/17 at 09:00 Lorazepam (Ativan) 1 mg Q4H PRN GTB ANXIETY Last administered on 01/10/17 18: 39; Admin Dose 1 MG; Start 01/10/17 at 17:00 Metoprolol Tartrate (Lopressor) 50 mg BID GTB ; Start 01/10/17 at 21:00 Oxcarbazepine (Trileptal) 300 mg BID GTB ; Start 01/10/17 at 21:00 Metoprolol Tartrate (Lopressor) 5 mg Q4 PRN IV NOTE; Start 01/10/17 at 17:00 Ascorbic Acid (Vitamin C) 500 mg DAILY GTB ; Start 01/11/17 at 09:00 Docusate Sodium (Colace Liquid Cup) 100 mg BID GTB ; Start 01/10/17 at 21:00 Lorazepam (Ativan) 1 mg Q6H PRN IV Agitatoin Last administered on 01/10/17 17: 44; Admin Dose 1 MG; Start 01/10/17 at 17:30 Diphenhydramine HCl (Benadryl) 25 mg Q6H PRN IV Agitation Last administered on 01/10/17 17:44; Admin Dose 25 MG; Start 01/10/17 at 17:30 Multivitamins 30 ml 30 ml DAILY GTB ; Start 01/11/17 at 09:00 Sodium Chloride (NS) 1,000 ml @ 100 mls/hr Q10H IV Last administered on 18:39; Admin Dose 100 MLS/HR; Start 01/10/17 at 18:30 Acetaminophen (Tylenol Liquid) 650 mg Q6H PRN GTB FOR FEVER T>101 Last administered on 01/10/17 18:38; Admin Dose 650 MG; Start 01/10/17 at 18:30 MADISON PIERRE M.D. Jan 10, 2017 19:17
[2017-01-10] MEDS: METOPROLOL 50 MG TAB GTB SCH (21:00)
[2017-01-10] MEDS ORDERED: DOCUSATE SODIUM 100 MG CAP PO SCH (21:00)
[2017-01-10] MEDS: DOCUSATE SODIUM 10 MG/ML (10ML CUP) GTB SCH (21:00)
[2017-01-10] MEDS: L ACIDOPHIL/B LACTIS/B LONGUM CAPSULE PEG SCH (21:49)
[2017-01-10] MEDS: OXCARBAZEPINE 300 MG TAB GTB SCH (21:49)
[2017-01-10] MEDS ORDERED: ALBUTEROL 18 GM INHALER INH PRN (22:30)
[2017-01-10] MEDS ORDERED: IPRATROPIUM (HFA) 12.9 GM INHALER INH PRN (22:30)
[2017-01-11] VITALS (43 sets, daily range): BP systolic 82–154; BP diastolic 52–108; PULSE 82–125; RESP 8–39
[2017-01-11] MEDS: ALBUTEROL 18 GM INHALER INH SCH ×6 (01:30→21:06)
[2017-01-11] MEDS: IPRATROPIUM (HFA) 12.9 GM INHALER INH SCH ×6 (01:30→21:06)
[2017-01-11] MEDS: morphine 2 MG INJ IV PRN ×4 (04:05→19:13)
[2017-01-11] MEDS: SOD CHLORIDE 0.9% 1,000 ML IV SCH ×2 (04:30→10:35)
[2017-01-11] MEDS: HALOPERIDOL 5 MG INJ IM PRN ×3 (05:27→22:39)
[2017-01-11] MEDS: ACETAMINOPHEN 650MG/20.3ML CUP GTB PRN ×2 (05:27→13:37)
[2017-01-11] MEDS: PANTOPRAZOLE (EC) 40 MG TAB PO SCH (05:27)
[2017-01-11 06:59] LABS: CALCIUM 8.9 mg/dl (8.4-10.2); CREATININE 0.74 mg/dl (0.61-1.24); POTASSIUM 3.3 mmol/L (3.5-5.1)
[2017-01-11] MEDS: VANCOMYCIN 1 GM in NS 250 ML IVPB SCH (07:00)
[2017-01-11 07:31] LABS: BASOPHIL # 0.1 10^3/ul (0.0-0.1); BASOPHILS % 0.7 % (0.0-2.0); EOSINOPHILS # 0.2 10^3/ul (0.0-0.5); EOSINOPHILS % 1.6 % (0.0-7.0); HEMATOCRIT 26.3 % (42.0-52.0); HEMOGLOBIN 8.4 g/dl (14.0-18.0); LYMPHOCYTES # 0.9 10^3/ul (0.8-2.9); LYMPHOCYTES % 8.6 % (15.0-51.0); MEAN CORPUSCULAR HEMOGLOBIN 29.9 pg (29.0-33.0); MEAN CORPUSCULAR HGB CONC 31.9 g/dl (32.0-37.0); MEAN CORPUSCULAR VOLUME 93.6 fl (82.0-101.0); MEAN PLATELET VOLUME 10.6 fl (7.4-10.4); MONOCYTE # 0.6 10^3/ul (0.3-0.9); MONOCYTES % 5.8 % (0.0-11.0); NEUTROPHILS % 82.9 % (39.0-77.0); PLATELET COUNT 224 10^3/UL (140-415); RED BLOOD COUNT 2.81 10^6/ul (4.70-6.10); RED CELL DISTRIBUTION WIDTH 17.3 % (11.5-14.5); WHITE BLOOD COUNT 10.8 10^3/ul (4.8-10.8)
[2017-01-11] MEDS: METOPROLOL 50 MG TAB GTB SCH ×3 (08:35→21:01)
[2017-01-11] MEDS: L ACIDOPHIL/B LACTIS/B LONGUM CAPSULE PEG SCH ×3 (08:36→21:01)
[2017-01-11] MEDS: MULTIVITAMINS 30 ML CUP GTB SCH (08:36)
[2017-01-11] MEDS: DOCUSATE SODIUM 10 MG/ML (10ML CUP) GTB SCH ×2 (08:36→20:59)
[2017-01-11] MEDS: LANSOPRAZOLE 30 MG CAP GTB SCH (08:36)
[2017-01-11] MEDS: FOLIC ACID 1 MG TAB GTB SCH (08:36)
[2017-01-11] MEDS: CEFEPIME 1GM/50 ML (PMX) 50 ML IVPB SCH ×2 (08:36→21:01)
[2017-01-11] MEDS: ASCORBIC ACID 500 MG TAB GTB SCH (08:37)
[2017-01-11] MEDS: OXCARBAZEPINE 300 MG TAB GTB SCH ×2 (08:46→21:00)
[2017-01-11] MEDS ORDERED: ASCORBIC ACID 100 MG/ML 120ML BTL GTB SCH (09:00)
[2017-01-11] MEDS ORDERED: MULTIVITAMINS THERAPEUTIC TAB PO SCH (09:00)
[2017-01-11] MEDS ORDERED: POTASSIUM CHLORIDE 20 MEQ POWDER FOR ORAL SOLN GTB ONE (10:00)
--- NOTE | 2017-01-11 10:46 | CONS ---
Date/Time of Note Date/Time of Note DATE: 01/11/17 TIME: 10:45 Consult Date/Type/Reason Admit Date/Time Jan 09, 2017 at 18:37 Initial Consult Date 01/10/17 Type of Consultation: Pulmonary Ordering Provider: MATTHEW CALDERON MD Subjective Stable this morning. Mild tachycardia. Objective Vital Signs Date Time Temp Pulse Resp B/P Pulse Ox O2 Delivery O2 Flow Rate FiO2 01/11/17 10:30 113 29 119/72 98 Mechanical Ventilator 01/11/17 09:11 50 01/11/17 08:00 98.6 01/10/17 13:38 10.0 Intake and Output 01/10/17 01/10/17 01/11/17 14:59 22:59 06:59 Intake Total 390 ml 1120 ml Output Total 310 ml 260 ml Balance 80 ml 860 ml Exam PHYSICAL EXAMINATION GENERAL: Elderly gentleman, intubated on mechanical ventilation, opens eyes and appears somewhat agitated. Orally intubated. VITAL SIGNS: see below. HEENT: Pupils equal, round, and reactive to light. Tracheostomy site clean and intact. CARDIAC: S1, S2, 1/6 systolic ejection murmur CHEST: Diminished air entry bilaterally. ABDOMEN: Mildly distended. Bowel sounds present no guarding or rebound EXTREMITIES: No cyanosis, clubbing edema +1 NEUROLOGIC: Generalized weakness Results/Medications Result Diagram: 01/11/17 0605 01/11/17 0601 Results 24 hrs Laboratory Tests Test 01/10/17 17:50 01/11/17 05:20 01/11/17 06:01 01/11/17 06:05 White Blood Count 14.3 #H 10.8 # Red Blood Count 2.85 L 2.81 L Hemoglobin 7.9 L 8.4 L Hematocrit 26.2 L 26.3 L Mean Corpuscular Volume 91.9 93.6 Mean Corpuscular Hemoglobin 27.7 L 29.9 Mean Corpuscular Hemoglobin Concent 30.2 L 31.9 L Red Cell Distribution Width 18.6 H 17.3 H Platelet Count 291 # 224 # Mean Platelet Volume 10.5 H 10.6 H Neutrophils % 87.8 H 82.9 H Lymphocytes % 4.6 L 8.6 L Monocytes % 4.4 5.8 Eosinophils % 2.0 1.6 Basophils % 1.0 0.7 Nucleated Red Blood Cells % 0.0 0.0 Neutrophils # (Manual) 13 H 9 H Lymphocytes # 0.7 L 0.9 Monocytes # 0.6 0.6 Eosinophils # 0.3 0.2 Basophils # 0.1 0.1 Nucleated Red Blood Cells # 0.0 0.0 Lactic Acid Level 1.0 Lab Scanned Report BLOOD TRANSFUSION Sodium Level 142 Potassium Level 3.3 L Chloride Level 100 Carbon Dioxide Level 37 H Anion Gap 8 Blood Urea Nitrogen 28 H Creatinine 0.74 Glucose Level 103 Calcium Level 8.9 Vancomycin Level Trough 29.4 *H Medications Current Medications Quetiapine Fumarate 25 mg 25 mg Q6 PRN PO AGITATION/ANXIETY Last administered on 01/10/17 03:34; Admin Dose 25 MG; Start 01/09/17 at 21:30 Cefepime HCl (Maxipime 1gm/50 ml (Pmx)) 50 ml @ 100 mls/hr Q12 IVPB Last administered on 01/11/17 08:36; Admin Dose 100 MLS/HR; Start 01/10/17 at 09:00 Ondansetron HCl (Zofran Inj) 4 mg Q6H PRN IV NAUSEA AND/OR VOMITING; Start at 22:00 Acetaminophen (Tylenol Tab) 650 mg Q6H PRN PO PAIN LEVEL 1-3 OR FEVER Last administered on 01/10/17 15:46; Admin Dose 650 MG; Start 01/09/17 at 22:00 Morphine Sulfate (morphine) 2 mg Q4H PRN IV PAIN LEVEL 7-10 Last administered on 01/11/17 10:07; Admin Dose 2 MG; Start 01/09/17 at 22:00 Pantoprazole 40 mg 40 mg DAILY@06 PO Last administered on 01/11/17 05:27; Admin Dose 40 MG; Start 01/10/17 at 06:00 Vancomycin HCl (Vancocin) 250 ml @ 125 mls/hr Q12H IVPB Last administered on 20:43; Admin Dose 125 MLS/HR; Start 01/10/17 at 07:00; Status Future Hold Haloperidol (Haldol) 5 mg Q6 PRN IM Agitation Last administered on 01/11/17 05 :27; Admin Dose 5 MG; Start 01/10/17 at 15:30 Clonidine (Catapres) 0.1 mg Q6 GTB Last administered on 01/10/17 18:39; Admin Dose 0.1 MG; Start 01/10/17 at 18:00 Diphenhydramine HCl (Benadryl) 25 mg Q6H PRN GTB ITCHING Last administered on 18:39; Admin Dose 25 MG; Start 01/10/17 at 17:00 Folic Acid (Folic Acid) 1 mg DAILY GTB Last administered on 01/11/17 08:36; Admin Dose 1 MG; Start 01/11/17 at 09:00 Acetaminophen/ Hydrocodone Bitart ([place] (5/325)) 1 tab Q4H PRN GTB PAIN LEVEL 4-10/10; Start 01/10/17 at 17:00 Lactobacillus Acidophilus (Florajen3 Capsule) 3 each TID PEG Last administered on 01/11/17 08:36; Admin Dose 3 EACH; Start 01/10/17 at 21:00 Lansoprazole (Prevacid) 30 mg DAILY GTB ; Start 01/11/17 at 09:00 Lorazepam (Ativan) 1 mg Q4H PRN GTB ANXIETY Last administered on 01/10/17 18: 39; Admin Dose 1 MG; Start 01/10/17 at 17:00 Metoprolol Tartrate (Lopressor) 50 mg BID GTB ; Start 01/10/17 at 21:00 Oxcarbazepine (Trileptal) 300 mg BID GTB Last administered on 01/11/17 08:46; Admin Dose 300 MG; Start 01/10/17 at 21:00 Metoprolol Tartrate (Lopressor) 5 mg Q4 PRN IV NOTE; Start 01/10/17 at 17:00 Ascorbic Acid (Vitamin C) 500 mg DAILY GTB Last administered on 01/11/17 08:37 ; Admin Dose 500 MG; Start 01/11/17 at 09:00 Docusate Sodium (Colace Liquid Cup) 100 mg BID GTB Last administered on 08:36; Admin Dose 100 MG; Start 01/10/17 at 21:00 Lorazepam (Ativan) 1 mg Q6H PRN IV Agitatoin Last administered on 01/10/17 17: 44; Admin Dose 1 MG; Start 01/10/17 at 17:30 Diphenhydramine HCl (Benadryl) 25 mg Q6H PRN IV Agitation Last administered on 01/10/17 17:44; Admin Dose 25 MG; Start 01/10/17 at 17:30 Multivitamins 30 ml 30 ml DAILY GTB Last administered on 01/11/17 08:36; Admin Dose 30 ML; Start 01/11/17 at 09:00 Sodium Chloride (NS) 1,000 ml @ 100 mls/hr Q10H IV Last administered on 10:35; Admin Dose 100 MLS/HR; Start 01/10/17 at 18:30 Acetaminophen (Tylenol Liquid) 650 mg Q6H PRN GTB FOR FEVER T>101 Last administered on 01/11/17 05:27; Admin Dose 650 MG; Start 01/10/17 at 18:30 Assessment/Plan Chief Complaint/Hosp Course IMPRESSION: 1. Chronic hypoxemic respiratory failure, secondary to pulmonary fibrosis with possible tracheobronchitis. 2. Severe sepsis on admission, now improved with current antibiotics of cefepime and vancomycin. 3. Dysphagia with gastrostomy tube. 4. Encephalopathy questionable toxic metabolic 5. Hypokalemia PLAN: 1. Continue current broad-spectrum antibiotics. 2. Vent support. 3. Tube feeding. 4. DVT and GI prophylaxis. 5. Replace potassium Consider transfer to telemetry Problems: COLETTE SAAVEDRA MD, [facility] Jan 11, 2017 10:46
--- NOTE | 2017-01-11 14:02 | CONS ---
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 Coli - colonization with ESBL and CRE - h/o recurrent UTI due to ESBL E. Coli - h/o funguria - h/o thrush - h/o bacteremia 10/28/2016 due to enterococcus faecium. Midline was dc'd - h/0 bacteremia 12/21/2016 due to enterococcus faecalis - s/p severe sepsis due to UTI, prob aspiration after hematemesis and multiple intubation events, and HCAP - s/p acute UGIB of unclear etiology; s/p EGD 10/01/2016 showing no active bleeding site - HLD and fatty liver - h/o alcoholism - chronic diastolic HF - diverticulosis, seen on CT at [facility] - severe protein calorie malnutrition - h/o fall and trauma to R foot recommendations: - pending results: blood cultures x2 (NTD), urine culture (NTD), respiratory culture (I asked pt's RN to collect specimen today), MRSA screen - continue IV vancomycin and cefepime (01/10/2017-) empirically Management d/w KOFI Hodge and Dr. Childers Critical critical care time spent: 35 minutes Problems: Consultation Date/Type/Reason Admit Date/Time Jan 09, 2017 at 18:37 Initial Consult Date 01/10/17 Type of Consultation: Infectious Disease Referring Provider: MATTHEW CALDERON MD 24 HR Interval Summary Free Text/Dictation T max 102.8 yesterday evening. Afebrile overnight and today. HR improved per d/ w nursing staff. ROS limited d/t pt being non-verbal. Pt mouths out that he is hot ("calor") and hand motions for an electric fan. Subjective hx not possible: pt non-verbal Exam/Review of Systems Vital Signs Vitals Vital Signs Date Time Temp Pulse Resp B/P Pulse Ox O2 Delivery O2 Flow Rate FiO2 01/11/17 13:30 95 25 110/75 97 Mechanical Ventilator 01/11/17 13:14 50 01/11/17 12:00 98.6 01/10/17 13:38 10.0 Intake and Output 01/10/17 01/10/17 01/11/17 15:00 23:00 07:00 Intake Total 410 ml 1260 ml Output Total 340 ml 230 ml Balance 70 ml 1030 ml Exam Constitutional: alert, non-verbal Psych: anxiety Head: atraumatic, normocephalic, other (temporal wasting noted) Eyes: nl conjunctiva, nl lids, nl sclera ENMT: nl external ears & nose Neck: other (tracheostomy) Respiratory: crackles/rales Cardiovascular: nl pulses, regular rate and rhythm Gastrointestinal: non-tender, other (G tube present), soft Genitourinary - Male: other (Robin present) Musculoskeletal: nl extremities to inspection Extremities: No edema Neurological: other (seems to follow simple commands when spoken to in [place]ian but then starts mouthing out words that cannot be understood; TYSON) Skin: nl turgor, No rash or lesions Results Result Diagram: 01/11/17 0605 01/11/17 0601 Results 24 hrs Laboratory Tests Test 01/10/17 17:50 01/11/17 05:20 01/11/17 06:01 01/11/17 06:05 White Blood Count 14.3 #H 10.8 # Red Blood Count 2.85 L 2.81 L Hemoglobin 7.9 L 8.4 L Hematocrit 26.2 L 26.3 L Mean Corpuscular Volume 91.9 93.6 Mean Corpuscular Hemoglobin 27.7 L 29.9 Mean Corpuscular Hemoglobin Concent 30.2 L 31.9 L Red Cell Distribution Width 18.6 H 17.3 H Platelet Count 291 # 224 # Mean Platelet Volume 10.5 H 10.6 H Neutrophils % 87.8 H 82.9 H Lymphocytes % 4.6 L 8.6 L Monocytes % 4.4 5.8 Eosinophils % 2.0 1.6 Basophils % 1.0 0.7 Nucleated Red Blood Cells % 0.0 0.0 Neutrophils # (Manual) 13 H 9 H Lymphocytes # 0.7 L 0.9 Monocytes # 0.6 0.6 Eosinophils # 0.3 0.2 Basophils # 0.1 0.1 Nucleated Red Blood Cells # 0.0 0.0 Lactic Acid Level 1.0 Lab Scanned Report BLOOD TRANSFUSION Sodium Level 142 Potassium Level 3.3 L Chloride Level 100 Carbon Dioxide Level 37 H Anion Gap 8 Blood Urea Nitrogen 28 H Creatinine 0.74 Glucose Level 103 Calcium Level 8.9 Vancomycin Level Trough 29.4 *H Medications Medications Current Medications Quetiapine Fumarate 25 mg 25 mg Q6 PRN PO AGITATION/ANXIETY Last administered on 01/10/17 03:34; Admin Dose 25 MG; Start 01/09/17 at 21:30 Cefepime HCl (Maxipime 1gm/50 ml (Pmx)) 50 ml @ 100 mls/hr Q12 IVPB Last administered on 01/11/17 08:36; Admin Dose 100 MLS/HR; Start 01/10/17 at 09:00 Ondansetron HCl (Zofran Inj) 4 mg Q6H PRN IV NAUSEA AND/OR VOMITING; Start at 22:00 Acetaminophen (Tylenol Tab) 650 mg Q6H PRN PO PAIN LEVEL 1-3 OR FEVER Last administered on 01/10/17 15:46; Admin Dose 650 MG; Start 01/09/17 at 22:00 Morphine Sulfate (morphine) 2 mg Q4H PRN IV PAIN LEVEL 7-10 Last administered on 01/11/17 10:07; Admin Dose 2 MG; Start 01/09/17 at 22:00 Pantoprazole 40 mg 40 mg DAILY@06 PO Last administered on 01/11/17 05:27; Admin Dose 40 MG; Start 01/10/17 at 06:00 Vancomycin HCl (Vancocin) 250 ml @ 125 mls/hr Q12H IVPB Last administered on 20:43; Admin Dose 125 MLS/HR; Start 01/10/17 at 07:00; Status Future Hold Haloperidol (Haldol) 5 mg Q6 PRN IM Agitation Last administered on 01/11/17 13 :37; Admin Dose 5 MG; Start 01/10/17 at 15:30 Clonidine (Catapres) 0.1 mg Q6 GTB Last administered on 01/10/17 18:39; Admin Dose 0.1 MG; Start 01/10/17 at 18:00 Diphenhydramine HCl (Benadryl) 25 mg Q6H PRN GTB ITCHING Last administered on 18:39; Admin Dose 25 MG; Start 01/10/17 at 17:00 Folic Acid (Folic Acid) 1 mg DAILY GTB Last administered on 01/11/17 08:36; Admin Dose 1 MG; Start 01/11/17 at 09:00 Acetaminophen/ Hydrocodone Bitart ([employer] (5/325)) 1 tab Q4H PRN GTB PAIN LEVEL 4-10/10; Start 01/10/17 at 17:00 Lactobacillus Acidophilus (Florajen3 Capsule) 3 each TID PEG Last administered on 01/11/17 12:08; Admin Dose 3 EACH; Start 01/10/17 at 21:00 Lansoprazole (Prevacid) 30 mg DAILY GTB ; Start 01/11/17 at 09:00 Lorazepam (Ativan) 1 mg Q4H PRN GTB ANXIETY Last administered on 01/10/17 18: 39; Admin Dose 1 MG; Start 01/10/17 at 17:00 Metoprolol Tartrate (Lopressor) 50 mg BID GTB Last administered on 01/11/17 12 :03; Admin Dose 50 MG; Start 01/10/17 at 21:00 Oxcarbazepine (Trileptal) 300 mg BID GTB Last administered on 01/11/17 08:46; Admin Dose 300 MG; Start 01/10/17 at 21:00 Metoprolol Tartrate (Lopressor) 5 mg Q4 PRN IV NOTE; Start 01/10/17 at 17:00 Ascorbic Acid (Vitamin C) 500 mg DAILY GTB Last administered on 01/11/17 08:37 ; Admin Dose 500 MG; Start 01/11/17 at 09:00 Docusate Sodium (Colace Liquid Cup) 100 mg BID GTB Last administered on 08:36; Admin Dose 100 MG; Start 01/10/17 at 21:00 Lorazepam (Ativan) 1 mg Q6H PRN IV Agitatoin Last administered on 01/10/17 17: 44; Admin Dose 1 MG; Start 01/10/17 at 17:30 Diphenhydramine HCl (Benadryl) 25 mg Q6H PRN IV Agitation Last administered on 01/10/17 17:44; Admin Dose 25 MG; Start 01/10/17 at 17:30 Multivitamins 30 ml 30 ml DAILY GTB Last administered on 01/11/17 08:36; Admin Dose 30 ML; Start 01/11/17 at 09:00 Sodium Chloride (NS) 1,000 ml @ 100 mls/hr Q10H IV Last administered on 10:35; Admin Dose 100 MLS/HR; Start 01/10/17 at 18:30 Acetaminophen (Tylenol Liquid) 650 mg Q6H PRN GTB FOR FEVER T>101 Last administered on 01/11/17 13:37; Admin Dose 650 MG; Start 01/10/17 at 18:30 MADISON CHILDERS M.D. 01/13/174: Assessment/Plan Assessment/Plan Additional Assessment/Plan Liseth attestation: I discussed the management with CARSON Glover and agree with above Exam/Review of Systems Results Result Diagram: 01/11/17 0605 01/11/17 0601 RODRIGUEZ GLOVER NP Jan 11, 2017 14:02 MADISON CHILDERS M.D. Jan 13, 2017 20:54
--- NOTE | 2017-01-11 15:17 | PN ---
Date/Time of Note Date/Time of Note DATE: 01/11/17 TIME: 15:09 Assessment/Plan VTE Prophylaxis VTE Prophylaxis Intervention: SCD's Lines/Catheters [facility] Type (from [facility]): Peripheral IV Urinary Cath still in place: Yes Reason Cath still needed: urinary retention Assessment/Plan Chief Complaint/Hosp Course Patient's continues to be agitated at times, able to nod in response to basic questions appropriately, tolerates G-tube feeding well. However continues to have periods of agitation, on vent support. Problems: Assessment/Plan - Possible recurrent sepsis. Continue broad-spectrum antibiotics follow-up follow-up on cultures. Dr. Laguerre is following infection disease consultation. - Pulmonary fibrosis. - Ventilatory dependent respiratory failure with tracheostomy. Dr. Souza is following in pulmonology consultation. - Chronic diastolic congestive heart failure. - Dysphagia with PEG. - Fatty liver. - Anemia. Further recommendations based on clinical course. Plan of care discussed with Dr. Austin Exam/Review of Systems Vital Signs Vitals Vital Signs Date Time Temp Pulse Resp B/P Pulse Ox O2 Delivery O2 Flow Rate FiO2 01/11/17 13:30 95 25 110/75 97 Mechanical Ventilator 01/11/17 13:14 50 01/11/17 12:00 98.6 01/10/17 13:38 10.0 Intake and Output 01/10/17 01/10/17 01/11/17 15:00 23:00 07:00 Intake Total 410 ml 1260 ml Output Total 340 ml 230 ml Balance 70 ml 1030 ml Exam Constitutional: alert Psych: confusion Head: normocephalic Neck: supple Respiratory: diminished breath sounds, other (Rhonchi) Cardiovascular: nl pulses Gastrointestinal: non-tender, soft Extremities: normal pulses Neurological: confused, other (Agitated) Results Result Diagram: 01/11/17 0605 01/11/17 0601 Results 24 hrs Laboratory Tests Test 01/10/17 17:50 01/11/17 05:20 01/11/17 06:01 01/11/17 06:05 White Blood Count 14.3 #H 10.8 # Red Blood Count 2.85 L 2.81 L Hemoglobin 7.9 L 8.4 L Hematocrit 26.2 L 26.3 L Mean Corpuscular Volume 91.9 93.6 Mean Corpuscular Hemoglobin 27.7 L 29.9 Mean Corpuscular Hemoglobin Concent 30.2 L 31.9 L Red Cell Distribution Width 18.6 H 17.3 H Platelet Count 291 # 224 # Mean Platelet Volume 10.5 H 10.6 H Neutrophils % 87.8 H 82.9 H Lymphocytes % 4.6 L 8.6 L Monocytes % 4.4 5.8 Eosinophils % 2.0 1.6 Basophils % 1.0 0.7 Nucleated Red Blood Cells % 0.0 0.0 Neutrophils # (Manual) 13 H 9 H Lymphocytes # 0.7 L 0.9 Monocytes # 0.6 0.6 Eosinophils # 0.3 0.2 Basophils # 0.1 0.1 Nucleated Red Blood Cells # 0.0 0.0 Lactic Acid Level 1.0 Lab Scanned Report BLOOD TRANSFUSION Sodium Level 142 Potassium Level 3.3 L Chloride Level 100 Carbon Dioxide Level 37 H Anion Gap 8 Blood Urea Nitrogen 28 H Creatinine 0.74 Glucose Level 103 Calcium Level 8.9 Vancomycin Level Trough 29.4 *H Medications Medications Current Medications Quetiapine Fumarate 25 mg 25 mg Q6 PRN PO AGITATION/ANXIETY Last administered on 01/10/17 03:34; Admin Dose 25 MG; Start 01/09/17 at 21:30 Cefepime HCl (Maxipime 1gm/50 ml (Pmx)) 50 ml @ 100 mls/hr Q12 IVPB Last administered on 01/11/17 08:36; Admin Dose 100 MLS/HR; Start 01/10/17 at 09:00 Ondansetron HCl (Zofran Inj) 4 mg Q6H PRN IV NAUSEA AND/OR VOMITING; Start at 22:00 Acetaminophen (Tylenol Tab) 650 mg Q6H PRN PO PAIN LEVEL 1-3 OR FEVER Last administered on 01/10/17 15:46; Admin Dose 650 MG; Start 01/09/17 at 22:00 Morphine Sulfate (morphine) 2 mg Q4H PRN IV PAIN LEVEL 7-10 Last administered on 01/11/17 14:21; Admin Dose 2 MG; Start 01/09/17 at 22:00 Haloperidol (Haldol) 5 mg Q6 PRN IM Agitation Last administered on 01/11/17 13 :37; Admin Dose 5 MG; Start 01/10/17 at 15:30 Clonidine (Catapres) 0.1 mg Q6 GTB Last administered on 01/10/17 18:39; Admin Dose 0.1 MG; Start 01/10/17 at 18:00 Diphenhydramine HCl (Benadryl) 25 mg Q6H PRN GTB ITCHING Last administered on 18:39; Admin Dose 25 MG; Start 01/10/17 at 17:00 Folic Acid (Folic Acid) 1 mg DAILY GTB Last administered on 01/11/17 08:36; Admin Dose 1 MG; Start 01/11/17 at 09:00 Acetaminophen/ Hydrocodone Bitart ([place] (5/325)) 1 tab Q4H PRN GTB PAIN LEVEL 4-10/10; Start 01/10/17 at 17:00 Lactobacillus Acidophilus (Florajen3 Capsule) 3 each TID PEG Last administered on 01/11/17 12:08; Admin Dose 3 EACH; Start 01/10/17 at 21:00 Lansoprazole (Prevacid) 30 mg DAILY GTB ; Start 01/11/17 at 09:00 Metoprolol Tartrate (Lopressor) 50 mg BID GTB Last administered on 01/11/17 12 :03; Admin Dose 50 MG; Start 01/10/17 at 21:00 Oxcarbazepine (Trileptal) 300 mg BID GTB Last administered on 01/11/17 08:46; Admin Dose 300 MG; Start 01/10/17 at 21:00 Metoprolol Tartrate (Lopressor) 5 mg Q4 PRN IV NOTE; Start 01/10/17 at 17:00 Ascorbic Acid (Vitamin C) 500 mg DAILY GTB Last administered on 01/11/17 08:37 ; Admin Dose 500 MG; Start 01/11/17 at 09:00 Docusate Sodium (Colace Liquid Cup) 100 mg BID GTB Last administered on 08:36; Admin Dose 100 MG; Start 01/10/17 at 21:00 Lorazepam (Ativan) 1 mg Q6H PRN IV Agitatoin Last administered on 01/10/17 17: 44; Admin Dose 1 MG; Start 01/10/17 at 17:30 Diphenhydramine HCl (Benadryl) 25 mg Q6H PRN IV Agitation Last administered on 01/10/17 17:44; Admin Dose 25 MG; Start 01/10/17 at 17:30 Multivitamins 30 ml 30 ml DAILY GTB Last administered on 01/11/17 08:36; Admin Dose 30 ML; Start 01/11/17 at 09:00 Sodium Chloride (NS) 1,000 ml @ 100 mls/hr Q10H IV Last administered on 10:35; Admin Dose 100 MLS/HR; Start 01/10/17 at 18:30 Acetaminophen 650 mg 650 mg Q6H PRN GTB FOR FEVER T>101 Last administered on 13:37; Admin Dose 650 MG; Start 01/10/17 at 18:30 Vancomycin HCl/ Sodium Chloride (Vancocin/NS) 250 ml @ 83.333 mls/ hr Q24H IVPB ; Start 01/12/17 at 00:00 MARIO LAND Jan 11, 2017 15:16
[2017-01-11] MEDS: DIPHENHYDRAMINE 50 MG INJ IV PRN (16:57)
[2017-01-12] VITALS (25 sets, daily range): BP systolic 94–136; BP diastolic 51–81; PULSE 12–115; RESP 16–39
[2017-01-12] MEDS: VANCOMYCIN 1.25 GM in SOD CHLORIDE 0.9% 250 ML IVPB SCH (00:08)
[2017-01-12] MEDS: ALBUTEROL 18 GM INHALER INH SCH ×7 (01:21→23:57)
[2017-01-12] MEDS: IPRATROPIUM (HFA) 12.9 GM INHALER INH SCH ×7 (01:21→23:57)
[2017-01-12] MEDS: morphine 2 MG INJ IV PRN ×2 (02:45→12:15)
[2017-01-12] MEDS: DIPHENHYDRAMINE 50 MG INJ IV PRN (04:04)
[2017-01-12] MEDS: ACETAMINOPHEN 650MG/20.3ML CUP GTB PRN ×2 (06:59→23:59)
[2017-01-12] MEDS: QUETIAPINE 25 MG TAB PO PRN (09:07)
[2017-01-12] MEDS: HALOPERIDOL 5 MG INJ IM PRN (09:08)
--- NOTE | 2017-01-12 09:20 | PN ---
Date/Time of Note Date/Time of Note DATE: 01/12/17 TIME: Assessment/Plan VTE Prophylaxis VTE Prophylaxis Intervention: other Lines/Catheters IV Catheter Type (from [facility]): Peripheral IV Urinary Cath still in place: Yes Reason Cath still needed: skin wounds contaminated by urine Assessment/Plan Chief Complaint/Hosp Course - Possible recurrent sepsis. Continue broad-spectrum antibiotics follow-up follow-up on cultures. Dr. Laguerre is following infection disease consultation. - Pulmonary fibrosis. - Ventilatory dependent respiratory failure with tracheostomy. Dr. Souza is following in pulmonology consultation. - Chronic diastolic congestive heart failure. - Dysphagia with PEG. - Fatty liver. - Anemia. Problems: Subjective 24 Hr Interval Summary Free Text/Dictation Patient awake, trach in place Exam/Review of Systems Vital Signs Vitals Vital Signs Date Time Temp Pulse Resp B/P Pulse Ox O2 Delivery O2 Flow Rate FiO2 01/12/17 08:45 115 01/12/17 08:16 100.1 17 136/81 92 01/12/17 05:44 50 01/12/17 01:00 Mechanical Ventilator 01/10/17 13:38 10.0 Intake and Output 01/11/17 01/11/17 01/12/17 15:00 23:00 07:00 Intake Total 1435 ml 835 ml 745 ml Output Total 650 ml 905 ml 600 ml Balance 785 ml -70 ml 145 ml Exam Constitutional: well developed Head: atraumatic, normocephalic Neck: supple Respiratory: diminished breath sounds Cardiovascular: regular rate and rhythm Gastrointestinal: non-tender, soft Extremities: normal pulses Results Result Diagram: 01/11/17 0601/11/17 06 Medications Medications Current Medications Quetiapine Fumarate 25 mg 25 mg Q6 PRN PO AGITATION/ANXIETY Last administered on 01/12/17 09:07; Admin Dose 25 MG; Start 01/09/17 at 21:30 Cefepime HCl (Maxipime 1gm/50 ml (Pmx)) 50 ml @ 100 mls/hr Q12 IVPB Last administered on 01/11/17 21:01; Admin Dose 100 MLS/HR; Start 01/10/17 at 09:00 Ondansetron HCl (Zofran Inj) 4 mg Q6H PRN IV NAUSEA AND/OR VOMITING; Start at 22:00 Acetaminophen (Tylenol Tab) 650 mg Q6H PRN PO PAIN LEVEL 1-3 OR FEVER Last administered on 01/10/17 15:46; Admin Dose 650 MG; Start 01/09/17 at 22:00 Morphine Sulfate (morphine) 2 mg Q4H PRN IV PAIN LEVEL 7-10 Last administered on 01/12/17 02:45; Admin Dose 2 MG; Start 01/09/17 at 22:00 Haloperidol (Haldol) 5 mg Q6 PRN IM Agitation Last administered on 01/12/17 09 :08; Admin Dose 5 MG; Start 01/10/17 at 15:30 Clonidine (Catapres) 0.1 mg Q6 GTB Last administered on 01/10/17 18:39; Admin Dose 0.1 MG; Start 01/10/17 at 18:00 Diphenhydramine HCl (Benadryl) 25 mg Q6H PRN GTB ITCHING Last administered on 18:39; Admin Dose 25 MG; Start 01/10/17 at 17:00 Folic Acid (Folic Acid) 1 mg DAILY GTB Last administered on 01/11/17 08:36; Admin Dose 1 MG; Start 01/11/17 at 09:00 Acetaminophen/ Hydrocodone Bitart ([place] (5/325)) 1 tab Q4H PRN GTB PAIN LEVEL 4-10/10; Start 01/10/17 at 17:00 Lactobacillus Acidophilus (Florajen3 Capsule) 3 each TID PEG Last administered on 01/11/17 21:01; Admin Dose 3 EACH; Start 01/10/17 at 21:00 Lansoprazole (Prevacid) 30 mg DAILY GTB ; Start 01/11/17 at 09:00 Metoprolol Tartrate (Lopressor) 50 mg BID GTB Last administered on 01/11/17 21 :01; Admin Dose 50 MG; Start 01/10/17 at 21:00 Oxcarbazepine (Trileptal) 300 mg BID GTB Last administered on 01/11/17 21:00; Admin Dose 300 MG; Start 01/10/17 at 21:00 Metoprolol Tartrate (Lopressor) 5 mg Q4 PRN IV NOTE; Start 01/10/17 at 17:00 Ascorbic Acid (Vitamin C) 500 mg DAILY GTB Last administered on 01/11/17 08:37 ; Admin Dose 500 MG; Start 01/11/17 at 09:00 Docusate Sodium (Colace Liquid Cup) 100 mg BID GTB Last administered on 20:59; Admin Dose 100 MG; Start 01/10/17 at 21:00 Diphenhydramine HCl (Benadryl) 25 mg Q6H PRN IV Agitation Last administered on 01/12/17 04:04; Admin Dose 25 MG; Start 01/10/17 at 17:30 Multivitamins 30 ml 30 ml DAILY GTB Last administered on 01/11/17 08:36; Admin Dose 30 ML; Start 01/11/17 at 09:00 Sodium Chloride (NS) 1,000 ml @ 30 mls/hr Q24H IV Last administered on 10:35; Admin Dose 100 MLS/HR; Start 01/10/17 at 18:30 Acetaminophen 650 mg 650 mg Q6H PRN GTB FOR FEVER T>101 Last administered on 06:59; Admin Dose 650 MG; Start 01/10/17 at 18:30 Vancomycin HCl/ Sodium Chloride (Vancocin/NS) 250 ml @ 83.333 mls/ hr Q24H IVPB Last administered on 01/12/17 00:08; Admin Dose 83.333 MLS/HR; Start at 00:00 NOAH MCGUIRE Jan 12, 2017 09:20
[2017-01-12] MEDS: CEFEPIME 1GM/50 ML (PMX) 50 ML IVPB SCH ×2 (09:45→21:25)
[2017-01-12] MEDS: DOCUSATE SODIUM 10 MG/ML (10ML CUP) GTB SCH ×2 (09:45→20:59)
[2017-01-12] MEDS: METOPROLOL 50 MG TAB GTB SCH ×2 (09:46→21:13)
[2017-01-12] MEDS: FOLIC ACID 1 MG TAB GTB SCH (09:46)
[2017-01-12] MEDS: L ACIDOPHIL/B LACTIS/B LONGUM CAPSULE PEG SCH ×3 (09:46→21:18)
[2017-01-12] MEDS: ASCORBIC ACID 500 MG TAB GTB SCH (09:46)
[2017-01-12] MEDS: LANSOPRAZOLE 30 MG CAP GTB SCH (09:47)
[2017-01-12] MEDS: OXCARBAZEPINE 300 MG TAB GTB SCH ×2 (09:47→21:12)
[2017-01-12] MEDS: MULTIVITAMINS 30 ML CUP GTB SCH (09:47)
--- NOTE | 2017-01-12 13:12 | CONS ---
Date/Time of Note Date/Time of Note DATE: 01/12/17 TIME: 13:10 Assessment/Plan Assessment/Plan Additional Assessment/Plan Ventilator settings are AC of 20, tidal volume 500, PEEP of 5, 50% FiO2. Assessment and recommendations; 1. Patient admitted with severe sepsis and pneumonia with significant clinical improvement. 2. Chronic respiratory failure due to severe underlying severe pulmonary fibrosis. 3. Anemia. Continue current treatment. Overall prognosis remains poor. Consultation Date/Type/Reason Admit Date/Time Jan 09, 2017 at 18:37 Initial Consult Date 01/10/17 Type of Consultation: Pulmonary Referring Provider: MATTHEW CALDERON MD 24 HR Interval Summary Free Text/Dictation Patient condition remains stable. Remains completely awake and alert. Remains chronically ventilator dependent. Has remained hemodynamically stable. General exam; elderly male, on ventilator via tracheostomy, currently in no distress. Awake and alert. Exam/Review of Systems Vital Signs Vitals Vital Signs Date Time Temp Pulse Resp B/P Pulse Ox O2 Delivery O2 Flow Rate FiO2 01/12/17 12:44 77 01/12/17 11:25 99.7 16 94/51 97 01/12/17 05:44 50 01/12/17 01:00 Mechanical Ventilator 01/10/17 13:38 10.0 Intake and Output 01/11/17 01/11/17 01/12/17 15:00 23:00 07:00 Intake Total 1435 ml 835 ml 745 ml Output Total 650 ml 905 ml 600 ml Balance 785 ml -70 ml 145 ml Exam HEENT exam; supple neck, no JVD. No lymphadenopathy. Midline trachea. No thyromegaly. Tracheostomy placed. With clean insertion site. Patient is edentulous. Pupils are midsize and reactive to light. Chest exam; scattered crackles bilaterally. S1-S2 audible, no murmurs. Regular rhythm. Exam; soft, nontender. No organomegaly. Bowel sounds audible. G-tube in place. Extremity exam; no peripheral edema. [employer] exam; patient is awake and alert moves all 4 extremities on command. Results Result Diagram: 01/11/17 0605 01/11/17 0601 Medications Medications Current Medications Quetiapine Fumarate 25 mg 25 mg Q6 PRN PO AGITATION/ANXIETY Last administered on 01/12/17t 09:07; Admin Dose 25 MG; Start 01/09/17 at 21:30 Cefepime HCl (Maxipime 1gm/50 ml (Pmx)) 50 ml @ 100 mls/hr Q12 IVPB Last administered on 01/12/17 09:45; Admin Dose 100 MLS/HR; Start 01/10/17 at 09:00 Ondansetron HCl (Zofran Inj) 4 mg Q6H PRN IV NAUSEA AND/OR VOMITING; Start at 22:00 Acetaminophen (Tylenol Tab) 650 mg Q6H PRN PO PAIN LEVEL 1-3 OR FEVER Last administered on 01/10/17 15:46; Admin Dose 650 MG; Start 01/09/17 at 22:00 Morphine Sulfate (morphine) 2 mg Q4H PRN IV PAIN LEVEL 7-10 Last administered on 01/12/17 12:15; Admin Dose 2 MG; Start 01/09/17 at 22:00 Haloperidol (Haldol) 5 mg Q6 PRN IM Agitation Last administered on 01/12/17 09 :08; Admin Dose 5 MG; Start 01/10/17 at 15:30 Clonidine (Catapres) 0.1 mg Q6 GTB Last administered on 01/10/17 18:39; Admin Dose 0.1 MG; Start 01/10/17 at 18:00 Diphenhydramine HCl (Benadryl) 25 mg Q6H PRN GTB ITCHING Last administered on 18:39; Admin Dose 25 MG; Start 01/10/17 at 17:00 Folic Acid (Folic Acid) 1 mg DAILY GTB Last administered on 01/12/17 09:46; Admin Dose 1 MG; Start 01/11/17 at 09:00 Acetaminophen/ Hydrocodone Bitart ([place] (5/325)) 1 tab Q4H PRN GTB PAIN LEVEL 4-10/10; Start 01/10/17 at 17:00 Lactobacillus Acidophilus (Florajen3 Capsule) 3 each TID PEG Last administered on 01/12/17 09:46; Admin Dose 3 EACH; Start 01/10/17 at 21:00 Lansoprazole (Prevacid) 30 mg DAILY GTB Last administered on 01/12/17 09:47; Admin Dose 30 MG; Start 01/11/17 at 09:00 Metoprolol Tartrate (Lopressor) 50 mg BID GTB Last administered on 01/12/17 09 :46; Admin Dose 50 MG; Start 01/10/17 at 21:00 Oxcarbazepine (Trileptal) 300 mg BID GTB Last administered on 01/12/17 09:47; Admin Dose 300 MG; Start 01/10/17 at 21:00 Metoprolol Tartrate (Lopressor) 5 mg Q4 PRN IV NOTE; Start 01/10/17 at 17:00 Ascorbic Acid (Vitamin C) 500 mg DAILY GTB Last administered on 01/12/17 09:46 ; Admin Dose 500 MG; Start 01/11/17 at 09:00 Docusate Sodium (Colace Liquid Cup) 100 mg BID GTB Last administered on 09:45; Admin Dose 100 MG; Start 01/10/17 at 21:00 Diphenhydramine HCl (Benadryl) 25 mg Q6H PRN IV Agitation Last administered on 01/12/17 04:04; Admin Dose 25 MG; Start 01/10/17 at 17:30 Multivitamins 30 ml 30 ml DAILY GTB Last administered on 01/12/17 09:47; Admin Dose 30 ML; Start 01/11/17 at 09:00 Sodium Chloride (NS) 1,000 ml @ 30 mls/hr Q24H IV Last administered on 10:35; Admin Dose 100 MLS/HR; Start 01/10/17 at 18:30 Acetaminophen 650 mg 650 mg Q6H PRN GTB FOR FEVER T>101 Last administered on 06:59; Admin Dose 650 MG; Start 01/10/17 at 18:30 Vancomycin HCl/ Sodium Chloride (Vancocin/NS) 250 ml @ 83.333 mls/ hr Q24H IVPB Last administered on 01/12/17 00:08; Admin Dose 83.333 MLS/HR; Start at 00:00 JOSE L BLAKE Jan 12, 2017 13:12
[2017-01-12] MEDS: SOD CHLORIDE 0.9% 1,000 ML IV SCH (14:30)
--- NOTE | 2017-01-12 16:49 | CONS ---
Date/Time of Note Date/Time of Note DATE: 01/12/17 TIME: 16:47 Assessment/Plan Assessment/Plan Additional Assessment/Plan - Possible recurrent sepsis. Continue broad-spectrum antibiotics follow-up follow-up on cultures. Dr. Laguerre is following infection disease consultation. - Pulmonary fibrosis. - Ventilatory dependent respiratory failure with tracheostomy. Dr. Souza is following in pulmonology consultation. - Chronic diastolic congestive heart failure. Stable, compensated. - Dysphagia with PEG. - Fatty liver. - Anemia. Consultation Date/Type/Reason Admit Date/Time Jan 09, 2017 at 18:37 Initial Consult Date 01/10/17 Type of Consultation: Pulmonary Referring Provider: MATTHEW CALDERON MD 24 HR Interval Summary Free Text/Dictation Non verbal, sedated, on vent No ROS Exam/Review of Systems Vital Signs Vitals Vital Signs Date Time Temp Pulse Resp B/P Pulse Ox O2 Delivery O2 Flow Rate FiO2 01/12/17 12:44 77 01/12/17 11:25 99.7 16 94/51 97 01/12/17 05:44 50 01/12/17 01:00 Mechanical Ventilator 01/10/17 13:38 10.0 Intake and Output 01/11/17 01/11/17 01/12/17 15:00 23:00 07:00 Intake Total 1435 ml 835 ml 745 ml Output Total 650 ml 905 ml 600 ml Balance 785 ml -70 ml 145 ml Exam General: WN/WD HEENT: Unicetric/atraumatic/ no assymetry NECK: On ventilator via Trach,JVD not elevated, no thyromegaly, carotids revealed normal upstrokes Lymph: no lymphadenopathy HEART: regular with no S3, I/ systolic murmur at apex LUNGS: clear ABD: soft, NT, ND, +BS, no organomegaly Neuro: no deficit SKIN: no leisons EXT: no edema Results Result Diagram: 01/11/17 0605 01/11/17 0601 Medications Medications Current Medications Quetiapine Fumarate 25 mg 25 mg Q6 PRN PO AGITATION/ANXIETY Last administered on 01/12/17t 09:07; Admin Dose 25 MG; Start 01/09/17 at 21:30 Cefepime HCl (Maxipime 1gm/50 ml (Pmx)) 50 ml @ 100 mls/hr Q12 IVPB Last administered on 01/12/17 09:45; Admin Dose 100 MLS/HR; Start 01/10/17 at 09:00 Ondansetron HCl (Zofran Inj) 4 mg Q6H PRN IV NAUSEA AND/OR VOMITING; Start at 22:00 Acetaminophen (Tylenol Tab) 650 mg Q6H PRN PO PAIN LEVEL 1-3 OR FEVER Last administered on 01/10/17 15:46; Admin Dose 650 MG; Start 01/09/17 at 22:00 Morphine Sulfate (morphine) 2 mg Q4H PRN IV PAIN LEVEL 7-10 Last administered on 01/12/17 12:15; Admin Dose 2 MG; Start 01/09/17 at 22:00 Clonidine (Catapres) 0.1 mg Q6 GTB Last administered on 01/10/17 18:39; Admin Dose 0.1 MG; Start 01/10/17 at 18:00 Diphenhydramine HCl (Benadryl) 25 mg Q6H PRN GTB ITCHING Last administered on 18:39; Admin Dose 25 MG; Start 01/10/17 at 17:00 Folic Acid (Folic Acid) 1 mg DAILY GTB Last administered on 01/12/17 09:46; Admin Dose 1 MG; Start 01/11/17 at 09:00 Acetaminophen/ Hydrocodone Bitart ([place] (5/325)) 1 tab Q4H PRN GTB PAIN LEVEL 4-10/10; Start 01/10/17 at 17:00 Lactobacillus Acidophilus (Florajen3 Capsule) 3 each TID PEG Last administered on 01/12/17 13:31; Admin Dose 3 EACH; Start 01/10/17 at 21:00 Lansoprazole (Prevacid) 30 mg DAILY GTB Last administered on 01/12/17 09:47; Admin Dose 30 MG; Start 01/11/17 at 09:00 Metoprolol Tartrate (Lopressor) 50 mg BID GTB Last administered on 01/12/17 09 :46; Admin Dose 50 MG; Start 01/10/17 at 21:00 Oxcarbazepine (Trileptal) 300 mg BID GTB Last administered on 01/12/17 09:47; Admin Dose 300 MG; Start 01/10/17 at 21:00 Metoprolol Tartrate (Lopressor) 5 mg Q4 PRN IV NOTE; Start 01/10/17 at 17:00 Ascorbic Acid (Vitamin C) 500 mg DAILY GTB Last administered on 01/12/17 09:46 ; Admin Dose 500 MG; Start 01/11/17 at 09:00 Docusate Sodium (Colace Liquid Cup) 100 mg BID GTB Last administered on 09:45; Admin Dose 100 MG; Start 01/10/17 at 21:00 Diphenhydramine HCl (Benadryl) 25 mg Q6H PRN IV Agitation Last administered on 01/12/17 04:04; Admin Dose 25 MG; Start 01/10/17 at 17:30 Multivitamins 30 ml 30 ml DAILY GTB Last administered on 01/12/17 09:47; Admin Dose 30 ML; Start 01/11/17 at 09:00 Sodium Chloride (NS) 1,000 ml @ 30 mls/hr Q24H IV Last administered on 10:35; Admin Dose 100 MLS/HR; Start 01/10/17 at 18:30 Acetaminophen 650 mg 650 mg Q6H PRN GTB FOR FEVER T>101 Last administered on 06:59; Admin Dose 650 MG; Start 01/10/17 at 18:30 Vancomycin HCl/ Sodium Chloride (Vancocin/NS) 250 ml @ 83.333 mls/ hr Q24H IVPB Last administered on 01/12/17 00:08; Admin Dose 83.333 MLS/HR; Start at 00:00 Haloperidol (Haldol) 10 mg Q6 PRN IM Agitation; Start 01/12/17 at 16:30 AMAN LIAO MD Jan 12, 2017 16:49
[2017-01-12 18:10] LABS: BASOPHIL # 0.1 10^3/ul (0.0-0.1); EOSINOPHILS # 0.6 10^3/ul (0.0-0.5); EOSINOPHILS % 9.5 % (0.0-7.0); HEMATOCRIT 25.3 % (42.0-52.0); HEMOGLOBIN 7.9 g/dl (14.0-18.0); LYMPHOCYTES # 1.1 10^3/ul (0.8-2.9); LYMPHOCYTES % 17.1 % (15.0-51.0); MEAN CORPUSCULAR HEMOGLOBIN 29.6 pg (29.0-33.0); MEAN CORPUSCULAR HGB CONC 31.2 g/dl (32.0-37.0); MEAN CORPUSCULAR VOLUME 94.8 fl (82.0-101.0); MEAN PLATELET VOLUME 9.9 fl (7.4-10.4); MONOCYTE # 0.4 10^3/ul (0.3-0.9); MONOCYTES % 5.9 % (0.0-11.0); NEUTROPHILS % 66.2 % (39.0-77.0); PLATELET COUNT 190 10^3/UL (140-415); RED BLOOD COUNT 2.67 10^6/ul (4.70-6.10); RED CELL DISTRIBUTION WIDTH 18.1 % (11.5-14.5); WHITE BLOOD COUNT 6.3 10^3/ul (4.8-10.8)
[2017-01-12 18:46] LABS: CREATININE 0.61 mg/dl (0.61-1.24); POTASSIUM 3.5 mmol/L (3.5-5.1)
--- NOTE | 2017-01-12 20:39 | CONS ---
RODRIGUEZ GLOVER NP 01/12/172037: Date/Time of Note Date/Time of Note DATE: 01/12/17 TIME: 20:37 Assessment/Plan Assessment/Plan Chief Complaint/Hosp Course assessment/impression - possible, recurrent sepsis - underlying pulmonary fibrosis - mental status change after lorazepam - VDRF s/p trach 10/09/2016 - dysphagia s/p PEG placement 10/09/2016 - erythroderma of unclear etiology in 11/2016, resolved - h/o CARLOS - encephalopathy - somewhat improved - s/p recurrent sepsis due to HCAP and UTI - h/o HCAP due to MDR acinetobacter and ESBL E. Coli - colonization with ESBL and CRE - h/o recurrent UTI due to ESBL E. Coli - h/o funguria - h/o thrush - h/o bacteremia 10/28/2016 due to enterococcus faecium. Midline was dc'd - h/o bacteremia 12/21/2016 due to enterococcus faecalis - s/p severe sepsis due to UTI, prob aspiration after hematemesis and multiple intubation events, and HCAP - s/p acute UGIB of unclear etiology; s/p EGD 10/01/2016 showing no active bleeding site - HLD and fatty liver - h/o alcoholism - chronic diastolic HF - diverticulosis, seen on CT at [facility] - severe protein calorie malnutrition - h/o fall and trauma to R foot recommendations: - pending results: blood cultures x2 (NTD), urine culture (NTD), respiratory culture (pending) - continue IV vancomycin and cefepime (01/10/2017-) empirically; will adjust antibiotics after reviewing final respiratory culture Management d/w Pt's nurse and Dr. Childers Problems: Consultation Date/Type/Reason Admit Date/Time Jan 09, 2017 at 18:37 Initial Consult Date 01/10/17 Type of Consultation: Infectious Disease Referring Provider: MATTHEW CALDERON MD 24 HR Interval Summary Free Text/Dictation Transferred out of ICU. Pt was very anxious earlier with reports of not sleeping last night; He was given seroquel, haldol and later morphine and tylenol; finally calmed down and fell asleep per d/w nursing staff. Unable to perform ROS d/t pt sleeping. Exam/Review of Systems Vital Signs Vitals Vital Signs Date Time Temp Pulse Resp B/P Pulse Ox O2 Delivery O2 Flow Rate FiO2 01/12/17 20:24 97.1 88 25 115/74 98 01/12/17 19:45 50 01/12/17 18:47 Mechanical Ventilator 01/10/17 13:38 10.0 Intake and Output 01/11/17 01/11/17 01/12/17 15:00 23:00 07:00 Intake Total 1435 ml 835 ml 745 ml Output Total 650 ml 905 ml 600 ml Balance 785 ml -70 ml 145 ml Exam Constitutional: non-verbal, other (asleep; at bedside) Head: atraumatic, normocephalic, other (temporal wasting noted) ENMT: nl external ears & nose Neck: other (tracheostomy) Respiratory: crackles Cardiovascular: nl pulses, regular rate and rhythm Gastrointestinal: non-tender, other (G tube present), soft Genitourinary - Male: other (Robin present) Musculoskeletal: nl extremities to inspection Extremities: No edema Neurological: other (asleep) Skin: nl turgor, No rash or lesions Results Result Diagram: 01/12/17 1802 01/12/17 1802 Results 24 hrs Laboratory Tests Test 01/12/17 18:02 White Blood Count 6.3 # Red Blood Count 2.67 L Hemoglobin 7.9 L Hematocrit 25.3 L Mean Corpuscular Volume 94.8 Mean Corpuscular Hemoglobin 29.6 Mean Corpuscular Hemoglobin Concent 31.2 L Red Cell Distribution Width 18.1 H Platelet Count 190 Mean Platelet Volume 9.9 Neutrophils % 66.2 Lymphocytes % 17.1 Monocytes % 5.9 Eosinophils % 9.5 H Basophils % 1.0 Nucleated Red Blood Cells % 0.0 Neutrophils # (Manual) 4 Lymphocytes # 1.1 Monocytes # 0.4 Eosinophils # 0.6 H Basophils # 0.1 Nucleated Red Blood Cells # 0.0 Sodium Level 141 Potassium Level 3.5 Chloride Level 100 Carbon Dioxide Level 36 H Anion Gap 9 Blood Urea Nitrogen 24 H Creatinine 0.61 Glucose Level 118 Calcium Level 9.0 Medications Medications Current Medications Quetiapine Fumarate 25 mg 25 mg Q6 PRN PO AGITATION/ANXIETY Last administered on 01/12/17t 09:07; Admin Dose 25 MG; Start 01/09/17 at 21:30 Cefepime HCl (Maxipime 1gm/50 ml (Pmx)) 50 ml @ 100 mls/hr Q12 IVPB Last administered on 01/12/17 09:45; Admin Dose 100 MLS/HR; Start 01/10/17 at 09:00 Ondansetron HCl (Zofran Inj) 4 mg Q6H PRN IV NAUSEA AND/OR VOMITING; Start at 22:00 Acetaminophen (Tylenol Tab) 650 mg Q6H PRN PO PAIN LEVEL 1-3 OR FEVER Last administered on 01/10/17 15:46; Admin Dose 650 MG; Start 01/09/17 at 22:00 Morphine Sulfate (morphine) 2 mg Q4H PRN IV PAIN LEVEL 7-10 Last administered on 01/12/17 12:15; Admin Dose 2 MG; Start 01/09/17 at 22:00 Clonidine (Catapres) 0.1 mg Q6 GTB Last administered on 01/10/17 18:39; Admin Dose 0.1 MG; Start 01/10/17 at 18:00 Diphenhydramine HCl (Benadryl) 25 mg Q6H PRN GTB ITCHING Last administered on 18:39; Admin Dose 25 MG; Start 01/10/17 at 17:00 Folic Acid (Folic Acid) 1 mg DAILY GTB Last administered on 01/12/17 09:46; Admin Dose 1 MG; Start 01/11/17 at 09:00 Acetaminophen/ Hydrocodone Bitart ([place] (5/325)) 1 tab Q4H PRN GTB PAIN LEVEL 4-10/10; Start 01/10/17 at 17:00 Lactobacillus Acidophilus (Florajen3 Capsule) 3 each TID PEG Last administered on 01/12/17 13:31; Admin Dose 3 EACH; Start 01/10/17 at 21:00 Lansoprazole (Prevacid) 30 mg DAILY GTB Last administered on 01/12/17 09:47; Admin Dose 30 MG; Start 01/11/17 at 09:00 Metoprolol Tartrate (Lopressor) 50 mg BID GTB Last administered on 01/12/17 09 :46; Admin Dose 50 MG; Start 01/10/17 at 21:00 Oxcarbazepine (Trileptal) 300 mg BID GTB Last administered on 01/12/17 09:47; Admin Dose 300 MG; Start 01/10/17 at 21:00 Metoprolol Tartrate (Lopressor) 5 mg Q4 PRN IV NOTE; Start 01/10/17 at 17:00 Ascorbic Acid (Vitamin C) 500 mg DAILY GTB Last administered on 01/12/17 09:46 ; Admin Dose 500 MG; Start 01/11/17 at 09:00 Docusate Sodium (Colace Liquid Cup) 100 mg BID GTB Last administered on 09:45; Admin Dose 100 MG; Start 01/10/17 at 21:00 Diphenhydramine HCl (Benadryl) 25 mg Q6H PRN IV Agitation Last administered on 01/12/17 04:04; Admin Dose 25 MG; Start 01/10/17 at 17:30 Multivitamins 30 ml 30 ml DAILY GTB Last administered on 01/12/17 09:47; Admin Dose 30 ML; Start 01/11/17 at 09:00 Sodium Chloride (NS) 1,000 ml @ 30 mls/hr Q24H IV Last administered on 10:35; Admin Dose 100 MLS/HR; Start 01/10/17 at 18:30 Acetaminophen 650 mg 650 mg Q6H PRN GTB FOR FEVER T>101 Last administered on 06:59; Admin Dose 650 MG; Start 01/10/17 at 18:30 Vancomycin HCl/ Sodium Chloride (Vancocin/NS) 250 ml @ 83.333 mls/ hr Q24H IVPB Last administered on 01/12/17 00:08; Admin Dose 83.333 MLS/HR; Start at 00:00 Haloperidol (Haldol) 10 mg Q6 PRN IM Agitation; Start 01/12/17 at 16:30 MADISON CHILDERS M.D. 01/13/172053: Assessment/Plan Assessment/Plan Additional Assessment/Plan Liseth attestation: I discussed the management with CARSON Glover and agree with above Exam/Review of Systems Results Result Diagram: 01/12/17180101/12/171801 RODRIGUEZ GLOVER NP Jan 12, 2017 20:38 MADISON CHILDERS M.D. Jan 13, 2017 20:54
[2017-01-13] VITALS (24 sets, daily range): BP systolic 94–131; BP diastolic 50–67; PULSE 80–115; RESP 16–36
[2017-01-13] MEDS: morphine 2 MG INJ IV PRN
[2017-01-13] MEDS: VANCOMYCIN 1.25 GM in SOD CHLORIDE 0.9% 250 ML IVPB SCH ×2 (00:03→23:55)
[2017-01-13] MEDS: IPRATROPIUM (HFA) 12.9 GM INHALER INH SCH ×5 (04:48→20:26)
[2017-01-13] MEDS: ALBUTEROL 18 GM INHALER INH SCH ×5 (04:49→20:26)
[2017-01-13] MEDS: QUETIAPINE 25 MG TAB PO PRN ×3 (07:44→23:09)
[2017-01-13] MEDS: ACETAMINOPHEN 650MG/20.3ML CUP GTB PRN (07:52)
[2017-01-13] MEDS: DIPHENHYDRAMINE 50 MG INJ IV PRN ×2 (08:45→17:04)
[2017-01-13] MEDS: DOCUSATE SODIUM 10 MG/ML (10ML CUP) GTB SCH ×2 (09:00→21:13)
[2017-01-13] MEDS: HALOPERIDOL 5 MG INJ IM PRN (09:29)
[2017-01-13] MEDS: METOPROLOL 50 MG TAB GTB SCH ×2 (09:30→21:15)
[2017-01-13] MEDS: L ACIDOPHIL/B LACTIS/B LONGUM CAPSULE PEG SCH ×3 (09:30→21:14)
[2017-01-13] MEDS: MULTIVITAMINS 30 ML CUP GTB SCH (09:30)
[2017-01-13] MEDS: LANSOPRAZOLE 30 MG CAP GTB SCH (09:31)
[2017-01-13] MEDS: FOLIC ACID 1 MG TAB GTB SCH (09:31)
[2017-01-13] MEDS: CEFEPIME 1GM/50 ML (PMX) 50 ML IVPB SCH ×2 (09:31→21:15)
[2017-01-13] MEDS: OXCARBAZEPINE 300 MG TAB GTB SCH ×2 (09:31→21:14)
[2017-01-13] MEDS: ASCORBIC ACID 500 MG TAB GTB SCH (09:31)
--- NOTE | 2017-01-13 11:13 | PN ---
Date/Time of Note Date/Time of Note DATE: 01/13/17 TIME: 11:12 Assessment/Plan VTE Prophylaxis VTE Prophylaxis Intervention: other Lines/Catheters IV C[facility] Type [facility]from [facility] Peripheral IV Urinary Cath still in place: Yes Reason Cath still needed: skin wounds contaminated by urine Assessment/Plan Chief Complaint/Hosp Course - Possible recurrent sepsis. Continue broad-spectrum antibiotics follow-up follow-up on cultures. Dr. Laguerre is following infection disease consultation. - Pulmonary fibrosis. - Ventilatory dependent respiratory failure with tracheostomy. Dr. Souza is following in pulmonology consultation. - Chronic diastolic congestive heart failure. - Dysphagia with PEG. - Fatty liver. - Anemia. Problems: Subjective 24 Hr Interval Summary Free Text/Dictation Patient awake, trach in place, appears calm Exam/Review of Systems Vital Signs Vitals Vital Signs Date Time Temp Pulse Resp B/P Pulse Ox O2 Delivery O2 Flow Rate FiO2 01/13/17 11:05 78 28 95 50 01/13/17 08:02 101.2 129/67 01/12/17 18:47 Mechanical Ventilator 01/10/17 13:38 10.0 Intake and Output 01/12/17 01/12/17 01/13/17 15:00 23:00 07:00 Intake Total 990 ml 1275 ml Output Total 800 ml 900 ml Balance 190 ml 375 ml Exam Constitutional: well developed Head: atraumatic, normocephalic Neck: supple Respiratory: diminished breath sounds Cardiovascular: regular rate and rhythm Gastrointestinal: non-tender, soft Extremities: normal pulses Results Result Diagram: 01/12/17 1802 01/12/17 1802 Results 24 hrs Laboratory Tests Test 01/12/17 18:02 White Blood Count 6.3 # Red Blood Count 2.67 L Hemoglobin 7.9 L Hematocrit 25.3 L Mean Corpuscular Volume 94.8 Mean Corpuscular Hemoglobin 29.6 Mean Corpuscular Hemoglobin Concent 31.2 L Red Cell Distribution Width 18.1 H Platelet Count 190 Mean Platelet Volume 9.9 Neutrophils % 66.2 Lymphocytes % 17.1 Monocytes % 5.9 Eosinophils % 9.5 H Basophils % 1.0 Nucleated Red Blood Cells % 0.0 Neutrophils # (Manual) 4 Lymphocytes # 1.1 Monocytes # 0.4 Eosinophils # 0.6 H Basophils # 0.1 Nucleated Red Blood Cells # 0.0 Sodium Level 141 Potassium Level 3.5 Chloride Level 100 Carbon Dioxide Level 36 H Anion Gap 9 Blood Urea Nitrogen 24 H Creatinine 0.61 Glucose Level 118 Calcium Level 9.0 Medications Medications Current Medications Quetiapine Fumarate 25 mg 25 mg Q6 PRN PO AGITATION/ANXIETY Last administered on 01/13/17 07:44; Admin Dose 25 MG; Start 01/09/17 at 21:30 Cefepime HCl (Maxipime 1gm/50 ml (Pmx)) 50 ml @ 100 mls/hr Q12 IVPB Last administered on 01/13/17 09:31; Admin Dose 100 MLS/HR; Start 01/10/17 at 09:00 Ondansetron HCl (Zofran Inj) 4 mg Q6H PRN IV NAUSEA AND/OR VOMITING; Start at 22:00 Acetaminophen (Tylenol Tab) 650 mg Q6H PRN PO PAIN LEVEL 1-3 OR FEVER Last administered on 01/10/17 15:46; Admin Dose 650 MG; Start 01/09/17 at 22:00 Morphine Sulfate (morphine) 2 mg Q4H PRN IV PAIN LEVEL 7-10 Last administered on 01/13/17 00:00; Admin Dose 2 MG; Start 01/09/17 at 22:00 Clonidine (Catapres) 0.1 mg Q6 GTB Last administered on 01/13/17 06:21; Admin Dose 0.1 MG; Start 01/10/17 at 18:00 Diphenhydramine HCl (Benadryl) 25 mg Q6H PRN GTB ITCHING Last administered on 18:39; Admin Dose 25 MG; Start 01/10/17 at 17:00 Folic Acid (Folic Acid) 1 mg DAILY GTB Last administered on 01/13/17 09:31; Admin Dose 1 MG; Start 01/11/17 at 09:00 Acetaminophen/ Hydrocodone Bitart ([place] (5/325)) 1 tab Q4H PRN GTB PAIN LEVEL 4-10/10; Start 01/10/17 at 17:00 Lactobacillus Acidophilus (Florajen3 Capsule) 3 each TID PEG Last administered on 01/13/17 09:30; Admin Dose 3 EACH; Start 01/10/17 at 21:00 Lansoprazole (Prevacid) 30 mg DAILY GTB Last administered on 01/13/17 09:31; Admin Dose 30 MG; Start 01/11/17 at 09:00 Metoprolol Tartrate (Lopressor) 50 mg BID GTB Last administered on 01/13/17 09 :30; Admin Dose 50 MG; Start 01/10/17 at 21:00 Oxcarbazepine (Trileptal) 300 mg BID GTB Last administered on 01/13/17 09:31; Admin Dose 300 MG; Start 01/10/17 at 21:00 Metoprolol Tartrate (Lopressor) 5 mg Q4 PRN IV NOTE; Start 01/10/17 at 17:00 Ascorbic Acid (Vitamin C) 500 mg DAILY GTB Last administered on 01/13/17 09:31 ; Admin Dose 500 MG; Start 01/11/17 at 09:00 Docusate Sodium (Colace Liquid Cup) 100 mg BID GTB Last administered on 20:59; Admin Dose 100 MG; Start 01/10/17 at 21:00 Diphenhydramine HCl (Benadryl) 25 mg Q6H PRN IV Agitation Last administered on 01/13/17 08:45; Admin Dose 25 MG; Start 01/10/17 at 17:30 Multivitamins 30 ml 30 ml DAILY GTB Last administered on 01/13/17 09:30; Admin Dose 30 ML; Start 01/11/17 at 09:00 Sodium Chloride (NS) 1,000 ml @ 30 mls/hr Q24H IV Last administered on 10:35; Admin Dose 100 MLS/HR; Start 01/10/17 at 18:30 Acetaminophen 650 mg 650 mg Q6H PRN GTB FOR FEVER T>101 Last administered on 07:52; Admin Dose 650 MG; Start 01/10/17 at 18:30 Vancomycin HCl/ Sodium Chloride (Vancocin/NS) 250 ml @ 83.333 mls/ hr Q24H IVPB Last administered on 01/13/17 00:03; Admin Dose 83.333 MLS/HR; Start at 00:00 Haloperidol (Haldol) 10 mg Q6 PRN IM Agitation Last administered on 01/13/17 09:29; Admin Dose 10 MG; Start 01/12/17 at 16:30 NOAH MCGUIRE Jan 13, 2017 11:12
--- NOTE | 2017-01-13 11:39 | CONS ---
Date/Time of Note Date/Time of Note DATE: 01/13/17 TIME: 11:36 Assessment/Plan Assessment/Plan Additional Assessment/Plan Ventilator setting; AC of 20, tidal volume 500, PEEP of 5, 50% FiO2. Assessment and recommendations; 1. Patient admitted with pneumonia currently on appropriate antibiotic regimen. 2. Chronic respiratory failure due to underlying end-stage lung fibrosis. Continue current treatment. Prognosis is poor. Consultation Date/Type/Reason Admit Date/Time Jan 09, 2017 at 18:37 Initial Consult Date 01/10/17 Type of Consultation: Pulmonary Referring Provider: MATTHEW CALDERON MD 24 HR Interval Summary Free Text/Dictation Patient condition stable. Remains mildly tachypneic which has been his underlying state for the last several months. Patient has remained hemodynamically stable. General exam; elderly male, on ventilator via tracheostomy, awake and alert. Currently in no distress. Exam/Review of Systems Vital Signs Vitals Vital Signs Date Time Temp Pulse Resp B/P Pulse Ox O2 Delivery O2 Flow Rate FiO2 01/13/17 11:05 78 28 95 50 01/13/17 08:02 101.2 129/67 01/12/17 18:47 Mechanical Ventilator 01/10/17 13:38 10.0 Intake and Output 01/12/17 01/12/17 01/13/17 15:00 23:00 07:00 Intake Total 990 ml 1275 ml Output Total 800 ml 900 ml Balance 190 ml 375 ml Exam HEENT exam; supple neck, no JVD. No lymphadenopathy. Midline trachea. No thyromegaly. Tracheostomy in place. Insertion site is clean. Patient is edentulous. Pupils are small bilaterally. Chest exam; diminished breath sounds bilaterally with bilateral crackles. S1- S2 audible, no murmurs. Regular rhythm. Abdomen exam; soft, G-tube in place. Nontender. No organomegaly. Nondistended. Bowel sounds audible. Extremity exam; no peripheral edema. 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 Results Result Diagram: 01/12/17180101/12/171801 Results 24 hrs Laboratory Tests Test 01/12/17 18:02 White Blood Count 6.3 # Red Blood Count 2.67 L Hemoglobin 7.9 L Hematocrit 25.3 L Mean Corpuscular Volume 94.8 Mean Corpuscular Hemoglobin 29.6 Mean Corpuscular Hemoglobin Concent 31.2 L Red Cell Distribution Width 18.1 H Platelet Count 190 Mean Platelet Volume 9.9 Neutrophils % 66.2 Lymphocytes % 17.1 Monocytes % 5.9 Eosinophils % 9.5 H Basophils % 1.0 Nucleated Red Blood Cells % 0.0 Neutrophils # (Manual) 4 Lymphocytes # 1.1 Monocytes # 0.4 Eosinophils # 0.6 H Basophils # 0.1 Nucleated Red Blood Cells # 0.0 Sodium Level 141 Potassium Level 3.5 Chloride Level 100 Carbon Dioxide Level 36 H Anion Gap 9 Blood Urea Nitrogen 24 H Creatinine 0.61 Glucose Level 118 Calcium Level 9.0 Medications Medications Current Medications Quetiapine Fumarate 25 mg 25 mg Q6 PRN PO AGITATION/ANXIETY Last administered on 01/13/17 07:44; Admin Dose 25 MG; Start 01/09/17 at 21:30 Cefepime HCl (Maxipime 1gm/50 ml (Pmx)) 50 ml @ 100 mls/hr Q12 IVPB Last administered on 01/13/17 09:31; Admin Dose 100 MLS/HR; Start 01/10/17 at 09:00 Ondansetron HCl (Zofran Inj) 4 mg Q6H PRN IV NAUSEA AND/OR VOMITING; Start at 22:00 Acetaminophen (Tylenol Tab) 650 mg Q6H PRN PO PAIN LEVEL 1-3 OR FEVER Last administered on 01/10/17 15:46; Admin Dose 650 MG; Start 01/09/17 at 22:00 Morphine Sulfate (morphine) 2 mg Q4H PRN IV PAIN LEVEL 7-10 Last administered on 01/13/17 00:00; Admin Dose 2 MG; Start 01/09/17 at 22:00 Clonidine (Catapres) 0.1 mg Q6 GTB Last administered on 01/13/17 06:21; Admin Dose 0.1 MG; Start 01/10/17 at 18:00 Diphenhydramine HCl (Benadryl) 25 mg Q6H PRN GTB ITCHING Last administered on 18:39; Admin Dose 25 MG; Start 01/10/17 at 17:00 Folic Acid (Folic Acid) 1 mg DAILY GTB Last administered on 01/13/17 09:31; Admin Dose 1 MG; Start 01/11/17 at 09:00 Acetaminophen/ Hydrocodone Bitart ([place] (5/325)) 1 tab Q4H PRN GTB PAIN LEVEL 4-10/10; Start 01/10/17 at 17:00 Lactobacillus Acidophilus (Florajen3 Capsule) 3 each TID PEG Last administered on 01/13/17 09:30; Admin Dose 3 EACH; Start 01/10/17 at 21:00 Lansoprazole (Prevacid) 30 mg DAILY GTB Last administered on 01/13/17 09:31; Admin Dose 30 MG; Start 01/11/17 at 09:00 Metoprolol Tartrate (Lopressor) 50 mg BID GTB Last administered on 01/13/17 09 :30; Admin Dose 50 MG; Start 01/10/17 at 21:00 Oxcarbazepine (Trileptal) 300 mg BID GTB Last administered on 01/13/17 09:31; Admin Dose 300 MG; Start 01/10/17 at 21:00 Metoprolol Tartrate (Lopressor) 5 mg Q4 PRN IV NOTE; Start 01/10/17 at 17:00 Ascorbic Acid (Vitamin C) 500 mg DAILY GTB Last administered on 01/13/17 09:31 ; Admin Dose 500 MG; Start 01/11/17 at 09:00 Docusate Sodium (Colace Liquid Cup) 100 mg BID GTB Last administered on 20:59; Admin Dose 100 MG; Start 01/10/17 at 21:00 Diphenhydramine HCl (Benadryl) 25 mg Q6H PRN IV Agitation Last administered on 01/13/17 08:45; Admin Dose 25 MG; Start 01/10/17 at 17:30 Multivitamins 30 ml 30 ml DAILY GTB Last administered on 01/13/17 09:30; Admin Dose 30 ML; Start 01/11/17 at 09:00 Sodium Chloride (NS) 1,000 ml @ 30 mls/hr Q24H IV Last administered on 10:35; Admin Dose 100 MLS/HR; Start 01/10/17 at 18:30 Acetaminophen 650 mg 650 mg Q6H PRN GTB FOR FEVER T>101 Last administered on 07:52; Admin Dose 650 MG; Start 01/10/17 at 18:30 Vancomycin HCl/ Sodium Chloride (Vancocin/NS) 250 ml @ 83.333 mls/ hr Q24H IVPB Last administered on 01/13/17 00:03; Admin Dose 83.333 MLS/HR; Start at 00:00 Haloperidol (Haldol) 10 mg Q6 PRN IM Agitation Last administered on 01/13/17 09:29; Admin Dose 10 MG; Start 01/12/17 at 16:30 JOSE L BLAKE Jan 13, 2017 11:39
[2017-01-13] MEDS: SOD CHLORIDE 0.9% 1,000 ML IV SCH (14:30)
--- NOTE | 2017-01-13 14:30 | CONS ---
Date/Time of Note Date/Time of Note DATE: 01/13/17 TIME: 14:27 Assessment/Plan Assessment/Plan Additional Assessment/Plan - Pulmonary fibrosis - Ventilatory dependent respiratory failure with tracheostomy. Dr. Souza is following in pulmonology consultation. - Chronic diastolic congestive heart failure. Stable, compensated. - Dysphagia with PEG. - Fatty liver. - Anemia. Consultation Date/Type/Reason Admit Date/Time Jan 09, 2017 at 18:37 Initial Consult Date 01/10/17 Type of Consultation: Pulmonary Referring Provider: MATTHEW CALDERON MD 24 HR Interval Summary Free Text/Dictation Family on bedside. On vent via trach No fever, no chills, no nausea, no vomiting, no diarrhea/constipation No recent weight changes No edema, no palpitations No chest pain, no PND, no SOB No dizziness, blurred vision No thirst, no heat or cold intolerance Exam/Review of Systems Vital Signs Vitals Vital Signs Date Time Temp Pulse Resp B/P Pulse Ox O2 Delivery O2 Flow Rate FiO2 01/13/17 13:47 80 01/13/17 13:37 24 98 50 01/13/17 11:36 99.6 94/50 01/12/17 18:47 Mechanical Ventilator 01/10/17 13:38 10.0 Intake and Output 01/12/17 01/12/17 01/13/17 15:00 23:00 07:00 Intake Total 990 ml 1275 ml Output Total 800 ml 900 ml Balance 190 ml 375 ml Exam General: WN/WD HEENT: Unicetric/atraumatic/ no assymetry NECK: JVD not elevated, no thyromegaly, carotids revealed normal upstrokes, trach in place Lymph: no lymphadenopathy HEART: regular with no S3, I/ systolic murmur at apex LUNGS: clear ABD: soft, NT, ND, +BS, no organomegaly Neuro: no deficit SKIN: no leisons EXT: no edema Results Result Diagram: 01/12/17180101/12/171801 Results 24 hrs Laboratory Tests Test 01/12/17 18:02 White Blood Count 6.3 # Red Blood Count 2.67 L Hemoglobin 7.9 L Hematocrit 25.3 L Mean Corpuscular Volume 94.8 Mean Corpuscular Hemoglobin 29.6 Mean Corpuscular Hemoglobin Concent 31.2 L Red Cell Distribution Width 18.1 H Platelet Count 190 Mean Platelet Volume 9.9 Neutrophils % 66.2 Lymphocytes % 17.1 Monocytes % 5.9 Eosinophils % 9.5 H Basophils % 1.0 Nucleated Red Blood Cells % 0.0 Neutrophils # (Manual) 4 Lymphocytes # 1.1 Monocytes # 0.4 Eosinophils # 0.6 H Basophils # 0.1 Nucleated Red Blood Cells # 0.0 Sodium Level 141 Potassium Level 3.5 Chloride Level 100 Carbon Dioxide Level 36 H Anion Gap 9 Blood Urea Nitrogen 24 H Creatinine 0.61 Glucose Level 118 Calcium Level 9.0 Medications Medications Current Medications Quetiapine Fumarate 25 mg 25 mg Q6 PRN PO AGITATION/ANXIETY Last administered on 01/13/17 07:44; Admin Dose 25 MG; Start 01/09/17 at 21:30 Cefepime HCl (Maxipime 1gm/50 ml (Pmx)) 50 ml @ 100 mls/hr Q12 IVPB Last administered on 01/13/17 09:31; Admin Dose 100 MLS/HR; Start 01/10/17 at 09:00 Ondansetron HCl (Zofran Inj) 4 mg Q6H PRN IV NAUSEA AND/OR VOMITING; Start at 22:00 Acetaminophen (Tylenol Tab) 650 mg Q6H PRN PO PAIN LEVEL 1-3 OR FEVER Last administered on 01/10/17 15:46; Admin Dose 650 MG; Start 01/09/17 at 22:00 Morphine Sulfate (morphine) 2 mg Q4H PRN IV PAIN LEVEL 7-10 Last administered on 01/13/17 00:00; Admin Dose 2 MG; Start 01/09/17 at 22:00 Clonidine (Catapres) 0.1 mg Q6 GTB Last administered on 01/13/17 06:21; Admin Dose 0.1 MG; Start 01/10/17 at 18:00 Diphenhydramine HCl (Benadryl) 25 mg Q6H PRN GTB ITCHING Last administered on 18:39; Admin Dose 25 MG; Start 01/10/17 at 17:00 Folic Acid (Folic Acid) 1 mg DAILY GTB Last administered on 01/13/17 09:31; Admin Dose 1 MG; Start 01/11/17 at 09:00 Acetaminophen/ Hydrocodone Bitart ([place] (5/325)) 1 tab Q4H PRN GTB PAIN LEVEL 4-10/10; Start 01/10/17 at 17:00 Lactobacillus Acidophilus (Florajen3 Capsule) 3 each TID PEG Last administered on 01/13/17 09:30; Admin Dose 3 EACH; Start 01/10/17 at 21:00 Lansoprazole (Prevacid) 30 mg DAILY GTB Last administered on 01/13/17 09:31; Admin Dose 30 MG; Start 01/11/17 at 09:00 Metoprolol Tartrate (Lopressor) 50 mg BID GTB Last administered on 01/13/17 09 :30; Admin Dose 50 MG; Start 01/10/17 at 21:00 Oxcarbazepine (Trileptal) 300 mg BID GTB Last administered on 01/13/17 09:31; Admin Dose 300 MG; Start 01/10/17 at 21:00 Metoprolol Tartrate (Lopressor) 5 mg Q4 PRN IV NOTE; Start 01/10/17 at 17:00 Ascorbic Acid (Vitamin C) 500 mg DAILY GTB Last administered on 01/13/17 09:31 ; Admin Dose 500 MG; Start 01/11/17 at 09:00 Docusate Sodium (Colace Liquid Cup) 100 mg BID GTB Last administered on 20:59; Admin Dose 100 MG; Start 01/10/17 at 21:00 Diphenhydramine HCl (Benadryl) 25 mg Q6H PRN IV Agitation Last administered on 01/13/17 08:45; Admin Dose 25 MG; Start 01/10/17 at 17:30 Multivitamins 30 ml 30 ml DAILY GTB Last administered on 01/13/17 09:30; Admin Dose 30 ML; Start 01/11/17 at 09:00 Sodium Chloride (NS) 1,000 ml @ 30 mls/hr Q24H IV Last administered on 10:35; Admin Dose 100 MLS/HR; Start 01/10/17 at 18:30 Acetaminophen 650 mg 650 mg Q6H PRN GTB FOR FEVER T>101 Last administered on 07:52; Admin Dose 650 MG; Start 01/10/17 at 18:30 Vancomycin HCl/ Sodium Chloride (Vancocin/NS) 250 ml @ 83.333 mls/ hr Q24H IVPB Last administered on 01/13/17 00:03; Admin Dose 83.333 MLS/HR; Start at 00:00 Haloperidol (Haldol) 10 mg Q6 PRN IM Agitation Last administered on 01/13/17 09:29; Admin Dose 10 MG; Start 01/12/17 at 16:30 AMAN LIAO MD Jan 13, 2017 14:30
--- NOTE | 2017-01-13 21:57 | CONS ---
Date/Time of Note Date/Time of Note DATE: 01/13/17 TIME: 21:51 Assessment/Plan Assessment/Plan Chief Complaint/Hosp Course assessment/impression - possible, recurrent sepsis due to aspiration pneumonia/pneumonitis - s/p recurrent sepsis due to HCAP and UTI - h/o HCAP due to MDR acinetobacter and ESBL E. Coli - colonization with ESBL and CRE - underlying pulmonary fibrosis - mental status change after lorazepam - VDRF s/p trach 10/09/2016 - dysphagia s/p PEG placement 10/09/2016 - erythroderma of unclear etiology in 11/2016, resolved - h/o CARLOS - h/o recurrent UTI due to ESBL E. Coli - h/o funguria - h/o thrush - h/o bacteremia 10/28/2016 due to enterococcus faecium. Midline was dc'd - h/o bacteremia 12/21/2016 due to enterococcus faecalis - s/p severe sepsis due to UTI, prob aspiration after hematemesis and multiple intubation events, and HCAP - s/p acute UGIB of unclear etiology; s/p EGD 10/01/2016 showing no active bleeding site - HLD and fatty liver - h/o alcoholism - chronic diastolic HF - diverticulosis, seen on CT at [facility] - severe protein calorie malnutrition - h/o fall and trauma to R foot recommendations: - pending results: Gram negative bacteria in respiratory culture - continue IV vancomycin and cefepime (01/10/2017-) empirically; will adjust antibiotics after reviewing final respiratory culture. If no MRSA in the final cultures, will d/c IV vancomycin management d/w Pt's Problems: Consultation Date/Type/Reason Admit Date/Time Jan 09, 2017 at 18:37 Initial Consult Date 01/10/17 Type of Consultation: ID Referring Provider: MATTHEW CALDERON MD 24 HR Interval Summary Subjective hx not possible: pt non-verbal Exam/Review of Systems Vital Signs Vitals Vital Signs Date Time Temp Pulse Resp B/P Pulse Ox O2 Delivery O2 Flow Rate FiO2 01/13/17 20:37 92 01/13/17 20:00 99.3 18 111/57 97 01/13/17 17:24 50 01/12/17 18:47 Mechanical Ventilator 01/10/17 13:38 10.0 Intake and Output 01/12/17 01/12/17 01/13/17 14:59 22:59 06:59 Intake Total 990 ml 1275 ml Output Total 800 ml 900 ml Balance 190 ml 375 ml Exam Constitutional: frail, non-verbal Psych: confusion Head: normocephalic, other (b/l temporal wasting) Eyes: nl conjunctiva, nl lids ENMT: nl external ears & nose, nl nasal mucosa & septum Neck: other (trach) Respiratory: crackles/rales Cardiovascular: nl pulses, regular rate and rhythm Gastrointestinal: non-tender, other (GT), soft Musculoskeletal: nl extremities to inspection Extremities: No edema Neurological: confused, lethargic Skin: nl turgor Results Result Diagram: 01/12/17180101/12/17 180 Medications Medications Current Medications Quetiapine Fumarate 25 mg 25 mg Q6 PRN PO AGITATION/ANXIETY Last administered on 01/13/17 17:03; Admin Dose 25 MG; Start 01/09/17 at 21:30 Cefepime HCl (Maxipime 1gm/50 ml (Pmx)) 50 ml @ 100 mls/hr Q12 IVPB Last administered on 01/13/17 21:15; Admin Dose 100 MLS/HR; Start 01/10/17 at 09:00 Ondansetron HCl (Zofran Inj) 4 mg Q6H PRN IV NAUSEA AND/OR VOMITING; Start at 22:00 Acetaminophen (Tylenol Tab) 650 mg Q6H PRN PO PAIN LEVEL 1-3 OR FEVER Last administered on 01/10/17 15:46; Admin Dose 650 MG; Start 01/09/17 at 22:00 Morphine Sulfate (morphine) 2 mg Q4H PRN IV PAIN LEVEL 7-10 Last administered on 01/13/17 00:00; Admin Dose 2 MG; Start 01/09/17 at 22:00 Clonidine (Catapres) 0.1 mg Q6 GTB Last administered on 01/13/17 06:21; Admin Dose 0.1 MG; Start 01/10/17 at 18:00 Diphenhydramine HCl (Benadryl) 25 mg Q6H PRN GTB ITCHING Last administered on 18:39; Admin Dose 25 MG; Start 01/10/17 at 17:00 Folic Acid (Folic Acid) 1 mg DAILY GTB Last administered on 01/13/17 09:31; Admin Dose 1 MG; Start 01/11/17 at 09:00 Acetaminophen/ Hydrocodone Bitart ([place] (5/325)) 1 tab Q4H PRN GTB PAIN LEVEL 4-10/10; Start 01/10/17 at 17:00 Lactobacillus Acidophilus (Florajen3 Capsule) 3 each TID PEG Last administered on 01/13/17 21:14; Admin Dose 3 EACH; Start 01/10/17 at 21:00 Lansoprazole (Prevacid) 30 mg DAILY GTB Last administered on 01/13/17 09:31; Admin Dose 30 MG; Start 01/11/17 at 09:00 Metoprolol Tartrate (Lopressor) 50 mg BID GTB Last administered on 01/13/17 21 :15; Admin Dose 50 MG; Start 01/10/17 at 21:00 Oxcarbazepine (Trileptal) 300 mg BID GTB Last administered on 01/13/17 21:14; Admin Dose 300 MG; Start 01/10/17 at 21:00 Metoprolol Tartrate (Lopressor) 5 mg Q4 PRN IV NOTE; Start 01/10/17 at 17:00 Ascorbic Acid (Vitamin C) 500 mg DAILY GTB Last administered on 01/13/17 09:31 ; Admin Dose 500 MG; Start 01/11/17 at 09:00 Docusate Sodium (Colace Liquid Cup) 100 mg BID GTB Last administered on 21:13; Admin Dose 100 MG; Start 01/10/17 at 21:00 Diphenhydramine HCl (Benadryl) 25 mg Q6H PRN IV Agitation Last administered on 01/13/17 17:04; Admin Dose 25 MG; Start 01/10/17 at 17:30 Multivitamins 30 ml 30 ml DAILY GTB Last administered on 01/13/17 09:30; Admin Dose 30 ML; Start 01/11/17 at 09:00 Sodium Chloride (NS) 1,000 ml @ 30 mls/hr Q24H IV Last administered on 14:30; Admin Dose 30 MLS/HR; Start 01/10/17 at 18:30 Acetaminophen 650 mg 650 mg Q6H PRN GTB FOR FEVER T>101 Last administered on 07:52; Admin Dose 650 MG; Start 01/10/17 at 18:30 Vancomycin HCl/ Sodium Chloride (Vancocin/NS) 250 ml @ 83.333 mls/ hr Q24H IVPB Last administered on 01/13/17 00:03; Admin Dose 83.333 MLS/HR; Start at 00:00 Haloperidol (Haldol) 10 mg Q6 PRN IM Agitation Last administered on 01/13/17 09:29; Admin Dose 10 MG; Start 01/12/17 at 16:30 MADISON PIERRE M.D. Jan 13, 2017 21:57
[2017-01-14] VITALS (24 sets, daily range): BP systolic 108–132; BP diastolic 56–77; PULSE 80–94; RESP 13–36
[2017-01-14] MEDS: ALBUTEROL 18 GM INHALER INH SCH ×6 (00:02→21:51)
[2017-01-14] MEDS: IPRATROPIUM (HFA) 12.9 GM INHALER INH SCH ×6 (00:02→21:51)
[2017-01-14 06:27] LABS: BASOPHIL # 0.1 10^3/ul (0.0-0.1); BASOPHILS % 0.6 % (0.0-2.0); EOSINOPHILS # 0.7 10^3/ul (0.0-0.5); EOSINOPHILS % 8.2 % (0.0-7.0); HEMATOCRIT 25.6 % (42.0-52.0); LYMPHOCYTES # 1.1 10^3/ul (0.8-2.9); LYMPHOCYTES % 13.3 % (15.0-51.0); MEAN CORPUSCULAR HEMOGLOBIN 29.3 pg (29.0-33.0); MEAN CORPUSCULAR HGB CONC 31.3 g/dl (32.0-37.0); MEAN CORPUSCULAR VOLUME 93.8 fl (82.0-101.0); MEAN PLATELET VOLUME 10.5 fl (7.4-10.4); MONOCYTE # 0.5 10^3/ul (0.3-0.9); MONOCYTES % 6.3 % (0.0-11.0); NEUTROPHILS % 71.1 % (39.0-77.0); PLATELET COUNT 216 10^3/UL (140-415); RED BLOOD COUNT 2.73 10^6/ul (4.70-6.10); WHITE BLOOD COUNT 7.9 10^3/ul (4.8-10.8)
[2017-01-14 06:49] LABS: CALCIUM 8.6 mg/dl (8.4-10.2); CREATININE 0.52 mg/dl (0.61-1.24); POTASSIUM 3.8 mmol/L (3.5-5.1)
[2017-01-14] MEDS: CEFEPIME 1GM/50 ML (PMX) 50 ML IVPB SCH ×2 (09:17→21:11)
[2017-01-14] MEDS: L ACIDOPHIL/B LACTIS/B LONGUM CAPSULE PEG SCH ×3 (09:18→21:10)
[2017-01-14] MEDS: ASCORBIC ACID 500 MG TAB GTB SCH (09:18)
[2017-01-14] MEDS: OXCARBAZEPINE 300 MG TAB GTB SCH ×2 (09:18→21:11)
[2017-01-14] MEDS: LANSOPRAZOLE 30 MG CAP GTB SCH (09:19)
[2017-01-14] MEDS: MULTIVITAMINS 30 ML CUP GTB SCH (09:19)
[2017-01-14] MEDS: FOLIC ACID 1 MG TAB GTB SCH (09:19)
[2017-01-14] MEDS: QUETIAPINE 25 MG TAB PO PRN (09:19)
[2017-01-14] MEDS: DOCUSATE SODIUM 10 MG/ML (10ML CUP) GTB SCH ×2 (09:19→21:08)
[2017-01-14] MEDS: METOPROLOL 50 MG TAB GTB SCH ×2 (09:20→21:09)
--- NOTE | 2017-01-14 11:45 | CONS ---
Date/Time of Note Date/Time of Note DATE: 01/14/17 TIME: 11:42 Assessment/Plan Assessment/Plan Additional Assessment/Plan Ventilator settings were reviewed. Assessment and recommendations; 1. Patient admitted for pneumonia on a background of severe end-stage fibrotic lung disease. 2. Chronic respiratory failure. 3. History of hypertension. Continue current treatment. Prognosis is poor. Consultation Date/Type/Reason Admit Date/Time Jan 09, 2017 at 18:37 Initial Consult Date 01/10/17 Type of Consultation: Pulmonary Referring Provider: MATTHEW CALDERON MD 24 HR Interval Summary Free Text/Dictation Patient condition remains critical. Remains chronically ventilator dependent. Has remained hemodynamically stable though. General exam; elderly male, on ventilator via tracheostomy, awake and alert. Currently in no distress. Exam/Review of Systems Vital Signs Vitals Vital Signs Date Time Temp Pulse Resp B/P Pulse Ox O2 Delivery O2 Flow Rate FiO2 01/14/17 11:39 98.4 73 18 131/77 99 01/14/17 11:10 30 01/12/17 18:47 Mechanical Ventilator 01/10/17 13:38 10.0 Intake and Output 01/13/17 01/13/17 01/14/17 15:00 23:00 07:00 Intake Total 940 ml 1510 ml Output Total 750 ml 1000 ml Balance 190 ml 510 ml Exam HEENT exam; supple neck, no JVD. No lymphadenopathy. Midline trachea. No thyromegaly. Tracheostomy in place. Patient is edentulous. Chest exam; diminished breath sounds bilaterally with bilateral crackles. S1- S2 audible, no murmurs. Regular rhythm. Abdomen exam; soft, no organomegaly. G-tube in place. Bowel sounds audible. Extremity exam; no peripheral edema. [employer] exam; no focal deficit. Results Result Diagram: 01/14/17 0559 01/14/17 0559 Results 24 hrs Laboratory Tests Test 01/14/17 05:59 White Blood Count 7.9 # Red Blood Count 2.73 L Hemoglobin 8.0 L Hematocrit 25.6 L Mean Corpuscular Volume 93.8 Mean Corpuscular Hemoglobin 29.3 Mean Corpuscular Hemoglobin Concent 31.3 L Red Cell Distribution Width 18.0 H Platelet Count 216 Mean Platelet Volume 10.5 H Neutrophils % 71.1 Lymphocytes % 13.3 L Monocytes % 6.3 Eosinophils % 8.2 H Basophils % 0.6 Nucleated Red Blood Cells % 0.0 Neutrophils # (Manual) 6 Lymphocytes # 1.1 Monocytes # 0.5 Eosinophils # 0.7 H Basophils # 0.1 Nucleated Red Blood Cells # 0.0 Sodium Level 139 Potassium Level 3.8 Chloride Level 97 Carbon Dioxide Level 38 H Anion Gap 8 Blood Urea Nitrogen 20 Creatinine 0.52 L Glucose Level 120 Calcium Level 8.6 Medications Medications Current Medications Quetiapine Fumarate 25 mg 25 mg Q6 PRN PO AGITATION/ANXIETY Last administered on 01/14/17 09:19; Admin Dose 25 MG; Start 01/09/17 at 21:30 Cefepime HCl (Maxipime 1gm/50 ml (Pmx)) 50 ml @ 100 mls/hr Q12 IVPB Last administered on 01/14/17 09:17; Admin Dose 100 MLS/HR; Start 01/10/17 at 09:00 Ondansetron HCl (Zofran Inj) 4 mg Q6H PRN IV NAUSEA AND/OR VOMITING; Start at 22:00 Acetaminophen (Tylenol Tab) 650 mg Q6H PRN PO PAIN LEVEL 1-3 OR FEVER Last administered on 01/10/17 15:46; Admin Dose 650 MG; Start 01/09/17 at 22:00 Morphine Sulfate (morphine) 2 mg Q4H PRN IV PAIN LEVEL 7-10 Last administered on 01/13/17 00:00; Admin Dose 2 MG; Start 01/09/17 at 22:00 Clonidine (Catapres) 0.1 mg Q6 GTB Last administered on 01/13/17 06:21; Admin Dose 0.1 MG; Start 01/10/17 at 18:00 Diphenhydramine HCl (Benadryl) 25 mg Q6H PRN GTB ITCHING Last administered on 18:39; Admin Dose 25 MG; Start 01/10/17 at 17:00 Folic Acid (Folic Acid) 1 mg DAILY GTB Last administered on 01/14/17 09:19; Admin Dose 1 MG; Start 01/11/17 at 09:00 Acetaminophen/ Hydrocodone Bitart ([place] (5/325)) 1 tab Q4H PRN GTB PAIN LEVEL 4-10/10; Start 01/10/17 at 17:00 Lactobacillus Acidophilus (Florajen3 Capsule) 3 each TID PEG Last administered on 01/14/17 09:18; Admin Dose 3 EACH; Start 01/10/17 at 21:00 Lansoprazole (Prevacid) 30 mg DAILY GTB Last administered on 01/14/17 09:19; Admin Dose 30 MG; Start 01/11/17 at 09:00 Metoprolol Tartrate (Lopressor) 50 mg BID GTB Last administered on 01/14/17 09 :20; Admin Dose 50 MG; Start 01/10/17 at 21:00 Oxcarbazepine (Trileptal) 300 mg BID GTB Last administered on 01/14/17 09:18; Admin Dose 300 MG; Start 01/10/17 at 21:00 Metoprolol Tartrate (Lopressor) 5 mg Q4 PRN IV NOTE; Start 01/10/17 at 17:00 Ascorbic Acid (Vitamin C) 500 mg DAILY GTB Last administered on 01/14/17 09:18 ; Admin Dose 500 MG; Start 01/11/17 at 09:00 Docusate Sodium (Colace Liquid Cup) 100 mg BID GTB Last administered on 09:19; Admin Dose 100 MG; Start 01/10/17 at 21:00 Diphenhydramine HCl (Benadryl) 25 mg Q6H PRN IV Agitation Last administered on 01/13/17 17:04; Admin Dose 25 MG; Start 01/10/17 at 17:30 Multivitamins 30 ml 30 ml DAILY GTB Last administered on 01/14/17 09:19; Admin Dose 30 ML; Start 01/11/17 at 09:00 Sodium Chloride (NS) 1,000 ml @ 30 mls/hr Q24H IV Last administered on 14:30; Admin Dose 30 MLS/HR; Start 01/10/17 at 18:30 Acetaminophen 650 mg 650 mg Q6H PRN GTB FOR FEVER T>101 Last administered on 07:52; Admin Dose 650 MG; Start 01/10/17 at 18:30 Vancomycin HCl/ Sodium Chloride (Vancocin/NS) 250 ml @ 83.333 mls/ hr Q24H IVPB Last administered on 01/13/17 23:55; Admin Dose 83.333 MLS/HR; Start at 00:00 Haloperidol (Haldol) 10 mg Q6 PRN IM Agitation Last administered on 01/13/17 09:29; Admin Dose 10 MG; Start 01/12/17 at 16:30 JOSE L BLAKE Jan 14, 2017 11:44
--- NOTE | 2017-01-14 11:47 | CONS ---
Date/Time of Note Date/Time of Note DATE: 01/14/17 TIME: 11:43 Assessment/Plan Assessment/Plan Chief Complaint/Hosp Course IMP: 1.Diastolic CHF 2.HTN 3.Resp failure-chronic s/p trach 4.Pulmonary fibrosis 5. PNA 6.UTI Recc: -Tele -Continue BB -Continue abx's and bronchodilators -Follow volume status closely Problems: Consultation Date/Type/Reason Admit Date/Time Jan 09, 2017 at 18:37 Initial Consult Date 01/10/17 Type of Consultation: cardiology Reason for Consultation CHF Referring Provider: MATTHEW CALDERON MD Exam/Review of Systems Vital Signs Vitals Vital Signs Date Time Temp Pulse Resp B/P Pulse Ox O2 Delivery O2 Flow Rate FiO2 01/14/17 11:39 98.4 73 18 131/77 99 01/14/17 11:10 30 01/12/17 18:47 Mechanical Ventilator 01/10/17 13:38 10.0 Intake and Output 01/13/17 01/13/17 01/14/17 15:00 23:00 07:00 Intake Total 940 ml 1510 ml Output Total 750 ml 1000 ml Balance 190 ml 510 ml Exam Review of Systems: CONSTITUTIONAL: No fevers, chills. PULMONARY: trached CARDIOVASCULAR: No chest pain/palpitations GASTROINTESTINAL: No nausea/vomiting. GENITOURINARY: No hematuria/dysuria. MUSCULOSKELETAL: No myagias/arthalgias. PSYCHIATRIC: The patient denies depression. NEUROLOGIC: No weakness Constitutional: alert Psych: no complaints Head: normocephalic ENMT: mucosa pink and moist Neck: jvd ( 8-9 cm water), other (trach in place), supple Respiratory: diminished breath sounds (at bases/B) Cardiovascular: regular rate and rhythm Gastrointestinal: non-tender, soft Musculoskeletal: muscle tone (normal) Extremities: edema (none) Neurological: other (No focal deficits) Results Result Diagram: 01/14/17 0559 01/14/17 0559 Results 24 hrs Laboratory Tests Test 01/14/17 05:59 White Blood Count 7.9 # Red Blood Count 2.73 L Hemoglobin 8.0 L Hematocrit 25.6 L Mean Corpuscular Volume 93.8 Mean Corpuscular Hemoglobin 29.3 Mean Corpuscular Hemoglobin Concent 31.3 L Red Cell Distribution Width 18.0 H Platelet Count 216 Mean Platelet Volume 10.5 H Neutrophils % 71.1 Lymphocytes % 13.3 L Monocytes % 6.3 Eosinophils % 8.2 H Basophils % 0.6 Nucleated Red Blood Cells % 0.0 Neutrophils # (Manual) 6 Lymphocytes # 1.1 Monocytes # 0.5 Eosinophils # 0.7 H Basophils # 0.1 Nucleated Red Blood Cells # 0.0 Sodium Level 139 Potassium Level 3.8 Chloride Level 97 Carbon Dioxide Level 38 H Anion Gap 8 Blood Urea Nitrogen 20 Creatinine 0.52 L Glucose Level 120 Calcium Level 8.6 Medications Medications Current Medications Quetiapine Fumarate 25 mg 25 mg Q6 PRN PO AGITATION/ANXIETY Last administered on 01/14/17 09:19; Admin Dose 25 MG; Start 01/09/17 at 21:30 Cefepime HCl (Maxipime 1gm/50 ml (Pmx)) 50 ml @ 100 mls/hr Q12 IVPB Last administered on 01/14/17 09:17; Admin Dose 100 MLS/HR; Start 01/10/17 at 09:00 Ondansetron HCl (Zofran Inj) 4 mg Q6H PRN IV NAUSEA AND/OR VOMITING; Start at 22:00 Acetaminophen (Tylenol Tab) 650 mg Q6H PRN PO PAIN LEVEL 1-3 OR FEVER Last administered on 01/10/17 15:46; Admin Dose 650 MG; Start 01/09/17 at 22:00 Morphine Sulfate (morphine) 2 mg Q4H PRN IV PAIN LEVEL 7-10 Last administered on 01/13/17 00:00; Admin Dose 2 MG; Start 01/09/17 at 22:00 Clonidine (Catapres) 0.1 mg Q6 GTB Last administered on 01/13/17 06:21; Admin Dose 0.1 MG; Start 01/10/17 at 18:00 Diphenhydramine HCl (Benadryl) 25 mg Q6H PRN GTB ITCHING Last administered on 18:39; Admin Dose 25 MG; Start 01/10/17 at 17:00 Folic Acid (Folic Acid) 1 mg DAILY GTB Last administered on 01/14/17 09:19; Admin Dose 1 MG; Start 01/11/17 at 09:00 Acetaminophen/ Hydrocodone Bitart ([place] (5/325)) 1 tab Q4H PRN GTB PAIN LEVEL 4-10/10; Start 01/10/17 at 17:00 Lactobacillus Acidophilus (Florajen3 Capsule) 3 each TID PEG Last administered on 01/14/17 09:18; Admin Dose 3 EACH; Start 01/10/17 at 21:00 Lansoprazole (Prevacid) 30 mg DAILY GTB Last administered on 01/14/17 09:19; Admin Dose 30 MG; Start 01/11/17 at 09:00 Metoprolol Tartrate (Lopressor) 50 mg BID GTB Last administered on 01/14/17 09 :20; Admin Dose 50 MG; Start 01/10/17 at 21:00 Oxcarbazepine (Trileptal) 300 mg BID GTB Last administered on 01/14/17 09:18; Admin Dose 300 MG; Start 01/10/17 at 21:00 Metoprolol Tartrate (Lopressor) 5 mg Q4 PRN IV NOTE; Start 01/10/17 at 17:00 Ascorbic Acid (Vitamin C) 500 mg DAILY GTB Last administered on 01/14/17 09:18 ; Admin Dose 500 MG; Start 01/11/17 at 09:00 Docusate Sodium (Colace Liquid Cup) 100 mg BID GTB Last administered on 09:19; Admin Dose 100 MG; Start 01/10/17 at 21:00 Diphenhydramine HCl (Benadryl) 25 mg Q6H PRN IV Agitation Last administered on 01/13/17 17:04; Admin Dose 25 MG; Start 01/10/17 at 17:30 Multivitamins 30 ml 30 ml DAILY GTB Last administered on 01/14/17 09:19; Admin Dose 30 ML; Start 01/11/17 at 09:00 Sodium Chloride (NS) 1,000 ml @ 30 mls/hr Q24H IV Last administered on 14:30; Admin Dose 30 MLS/HR; Start 01/10/17 at 18:30 Acetaminophen 650 mg 650 mg Q6H PRN GTB FOR FEVER T>101 Last administered on 07:52; Admin Dose 650 MG; Start 01/10/17 at 18:30 Vancomycin HCl/ Sodium Chloride (Vancocin/NS) 250 ml @ 83.333 mls/ hr Q24H IVPB Last administered on 01/13/17 23:55; Admin Dose 83.333 MLS/HR; Start at 00:00 Haloperidol (Haldol) 10 mg Q6 PRN IM Agitation Last administered on 01/13/17 09:29; Admin Dose 10 MG; Start 01/12/17 at 16:30 CLOVIS LEON Jan 14, 2017 11:47
--- NOTE | 2017-01-14 14:01 | PN ---
Date/Time of Note Date/Time of Note DATE: 01/14/17 TIME: 13:56 Assessment/Plan VTE Prophylaxis VTE Prophylaxis Intervention: SCD's Lines/Catheters IV Catheter Type (from Nrs): Peripheral IV Central line still needed: Yes Urinary Cath still in place: Yes Reason Cath still needed: urinary retention Assessment/Plan Chief Complaint/Hosp Course Patient looks more comfortable, no episodes of agitation today, patient's condition and plan of care is discussed with patient's at the bedside. Assessment/Plan - Possible recurrent sepsis. Dr. Laguerre is following infection disease consultation. Continue antibiotics per ID. - Pulmonary fibrosis. - Ventilatory dependent respiratory failure with tracheostomy. Dr. Souza is following in pulmonology consultation. - Chronic diastolic congestive heart failure. - Dysphagia with PEG. - Fatty liver. - Anemia, will check stool for OB and no indication for blood transfusion continue to monitor. Further recommendations based on clinical course. Plan of care discussed with Dr. Austin Problems: Exam/Review of Systems Vital Signs Vitals Vital Signs Date Time Temp Pulse Resp B/P Pulse Ox O2 Delivery O2 Flow Rate FiO2 01/14/17 12:38 83 01/14/17 11:39 98.4 18 131/77 99 01/14/17 11:10 30 01/12/17 18:47 Mechanical Ventilator 01/10/17 13:38 10.0 Intake and Output 01/13/17 01/13/17 01/14/17 15:00 23:00 07:00 Intake Total 940 ml 1510 ml Output Total 750 ml 1000 ml Balance 190 ml 510 ml Exam Constitutional: alert Respiratory: diminished breath sounds Cardiovascular: nl pulses Gastrointestinal: non-tender, soft Extremities: normal pulses Results Result Diagram: 01/14/17 0559 01/14/17 0559 Results 24 hrs Laboratory Tests Test 01/14/17 05:59 White Blood Count 7.9 # Red Blood Count 2.73 L Hemoglobin 8.0 L Hematocrit 25.6 L Mean Corpuscular Volume 93.8 Mean Corpuscular Hemoglobin 29.3 Mean Corpuscular Hemoglobin Concent 31.3 L Red Cell Distribution Width 18.0 H Platelet Count 216 Mean Platelet Volume 10.5 H Neutrophils % 71.1 Lymphocytes % 13.3 L Monocytes % 6.3 Eosinophils % 8.2 H Basophils % 0.6 Nucleated Red Blood Cells % 0.0 Neutrophils # (Manual) 6 Lymphocytes # 1.1 Monocytes # 0.5 Eosinophils # 0.7 H Basophils # 0.1 Nucleated Red Blood Cells # 0.0 Sodium Level 139 Potassium Level 3.8 Chloride Level 97 Carbon Dioxide Level 38 H Anion Gap 8 Blood Urea Nitrogen 20 Creatinine 0.52 L Glucose Level 120 Calcium Level 8.6 Medications Medications Current Medications Quetiapine Fumarate 25 mg 25 mg Q6 PRN PO AGITATION/ANXIETY Last administered on 01/14/17 09:19; Admin Dose 25 MG; Start 01/09/17 at 21:30 Cefepime HCl (Maxipime 1gm/50 ml (Pmx)) 50 ml @ 100 mls/hr Q12 IVPB Last administered on 01/14/17 09:17; Admin Dose 100 MLS/HR; Start 01/10/17 at 09:00 Ondansetron HCl (Zofran Inj) 4 mg Q6H PRN IV NAUSEA AND/OR VOMITING; Start at 22:00 Acetaminophen (Tylenol Tab) 650 mg Q6H PRN PO PAIN LEVEL 1-3 OR FEVER Last administered on 01/10/17 15:46; Admin Dose 650 MG; Start 01/09/17 at 22:00 Morphine Sulfate (morphine) 2 mg Q4H PRN IV PAIN LEVEL 7-10 Last administered on 01/13/17 00:00; Admin Dose 2 MG; Start 01/09/17 at 22:00 Clonidine (Catapres) 0.1 mg Q6 GTB Last administered on 01/14/17 12:08; Admin Dose 0.1 MG; Start 01/10/17 at 18:00 Diphenhydramine HCl (Benadryl) 25 mg Q6H PRN GTB ITCHING Last administered on 18:39; Admin Dose 25 MG; Start 01/10/17 at 17:00 Folic Acid (Folic Acid) 1 mg DAILY GTB Last administered on 01/14/17 09:19; Admin Dose 1 MG; Start 01/11/17 at 09:00 Acetaminophen/ Hydrocodone Bitart ([place] (5/325)) 1 tab Q4H PRN GTB PAIN LEVEL 4-10/10; Start 01/10/17 at 17:00 Lactobacillus Acidophilus (Florajen3 Capsule) 3 each TID PEG Last administered on 01/14/17 13:12; Admin Dose 3 EACH; Start 01/10/17 at 21:00 Lansoprazole (Prevacid) 30 mg DAILY GTB Last administered on 01/14/17 09:19; Admin Dose 30 MG; Start 01/11/17 at 09:00 Metoprolol Tartrate (Lopressor) 50 mg BID GTB Last administered on 01/14/17 09 :20; Admin Dose 50 MG; Start 01/10/17 at 21:00 Oxcarbazepine (Trileptal) 300 mg BID GTB Last administered on 01/14/17 09:18; Admin Dose 300 MG; Start 01/10/17 at 21:00 Metoprolol Tartrate (Lopressor) 5 mg Q4 PRN IV NOTE; Start 01/10/17 at 17:00 Ascorbic Acid (Vitamin C) 500 mg DAILY GTB Last administered on 01/14/17 09:18 ; Admin Dose 500 MG; Start 01/11/17 at 09:00 Docusate Sodium (Colace Liquid Cup) 100 mg BID GTB Last administered on 09:19; Admin Dose 100 MG; Start 01/10/17 at 21:00 Diphenhydramine HCl (Benadryl) 25 mg Q6H PRN IV Agitation Last administered on 01/13/17 17:04; Admin Dose 25 MG; Start 01/10/17 at 17:30 Multivitamins 30 ml 30 ml DAILY GTB Last administered on 01/14/17 09:19; Admin Dose 30 ML; Start 01/11/17 at 09:00 Sodium Chloride (NS) 1,000 ml @ 30 mls/hr Q24H IV Last administered on 14:30; Admin Dose 30 MLS/HR; Start 01/10/17 at 18:30 Acetaminophen 650 mg 650 mg Q6H PRN GTB FOR FEVER T>101 Last administered on 07:52; Admin Dose 650 MG; Start 01/10/17 at 18:30 Vancomycin HCl/ Sodium Chloride (Vancocin/NS) 250 ml @ 83.333 mls/ hr Q24H IVPB Last administered on 01/13/17 23:55; Admin Dose 83.333 MLS/HR; Start at 00:00 Haloperidol (Haldol) 10 mg Q6 PRN IM Agitation Last administered on 01/13/17t 09:29; Admin Dose 10 MG; Start 01/12/17 at 16:30 Miscellaneous Information (*Rx Drug Level Order Reminder*) VANCOMYCIN TROUGH AT 2300 ONCE ONCE XX ; Start 01/14/17 at 23:00; Stop 01/14/17 at 23:01 MARIO LAND Jan 14, 2017 14:01
--- NOTE | 2017-01-14 14:04 | CONS ---
DATE OF ADMISSION: 01/09/2017 DATE OF CONSULTATION: 01/11/2017 Referring physician: Ronny Austin MD REASON FOR CONSULTATION: Tachycardia. HISTORY OF PRESENT ILLNESS: Mr. Brooks is a 71-year-old gentleman with a history of hypertension, dyslipidemia, chronic respiratory failure, history of ventilator dependence, history of pulmonary fibrosis and heart failure, as well as tachycardia, who comes to the hospital now for evaluation of respiratory distress. I have been asked to see the patient in consultation because of tachycardia. The patient is in telemetry now. He was in sinus tachycardia prior. The patient does not report any chest pain right now. His main concerns are pulmonary issues. I think for now conservative therapy is expected. The patient's tachycardia responded well to hydration and therapy. For now will follow expectantly, further recommendations as we have more information about his condition becomes available. PAST MEDICAL HISTORY: 1. Hypertension. 2. Dyslipidemia. 3. History of respiratory failure. 4. History of ventilator dependent pneumonia. 5. History of malnutrition with PEG. 6. History of coronary artery disease. ALLERGIES: MICONAZOLE. SOCIAL HISTORY: The patient smokes, does not drink, does not use any drugs. FAMILY HISTORY: Negative for sudden cardiac or premature coronary artery disease. MEDICATION: Here include folic acid, Prevacid, , multivitamins, albuterol, Atrovent, metoprolol 50 mg b.i.d., docusate, Tylenol, lorazepam, 5 mg as needed. REVIEW OF SYSTEMS: GENERAL: Some fevers and chills. Febrile. HEENT: No vision or hearing changes. CARDIAC: No chest pain reported now. RESPIRATORY: No shortness of breath. GASTROINTESTINAL: No nausea or vomiting, no constipation. GENITOURINARY: No dysuria. PSYCHIATRIC: No history of psychiatric illness. PHYSICAL EXAMINATION: VITAL SIGNS: Temperature 98.6, heart rate is 100, in sinus. Blood pressure 122/75. GENERAL: A gentleman in no acute distress, alert and oriented x3. HEENT: Head: Normocephalic, atraumatic. NECK: With trach. HEART: Regular but tachy. Soft murmur. CHEST: Lungs coarse at the bases. ABDOMEN: EXTREMITIES: Trace edema. LABORATORY: White blood cell count 10.8, hemoglobin 8.4, platelets 224. His INR is 1.0. Sodium 42, potassium is 3.3, BUN 24, creatinine 0.7, troponin is negative at 0.012. ASSESSMENT: 1. Tachycardia. The patient's underlying infection. Continue to follow. Will monitor closely. Hydrate if needed. 2. Heart failure. The patient has a history of congestive heart failure, does not appear to be in fluid overload. Continue to monitor closely. 3. Chest pain. The patient Troponins are negative. 4. Infection. Continue the patient on 5. Respiratory failure. The patient is on a ventilator, continue to follow as needed. 6. History of pneumonia. Continue pneumonia care per primary team. 7. Anemia. Hemoglobin is fairly stable. No evidence of bleeding now. Thank you, Dr. Austin, for referring this patient for my evaluation. Dictated By: Luan Shah MD /indio/denzel /Document#: [id number]
[2017-01-14] MEDS: SOD CHLORIDE 0.9% 1,000 ML IV SCH (14:09)
--- NOTE | 2017-01-14 20:20 | CONS ---
RODRIGUEZ GLOVER NP 01/14/17 2020: Date/Time of Note Date/Time of Note DATE: 01/14/17 TIME: 20:20 Assessment/Plan Assessment/Plan Chief Complaint/Hosp Course assessment/impression: - possible, recurrent sepsis due to aspiration pneumonia/pneumonitis - s/p recurrent sepsis due to HCAP and UTI - h/o HCAP due to MDR acinetobacter and ESBL E. Coli - colonization with ESBL and CRE - underlying pulmonary fibrosis - mental status change after lorazepam - VDRF s/p trach 10/09/2016 - dysphagia s/p PEG placement 10/09/2016 - erythroderma of unclear etiology in 11/2016, resolved - h/o CARLOS - h/o recurrent UTI due to ESBL E. Coli - h/o funguria - h/o thrush - h/o bacteremia 10/28/2016 due to enterococcus faecium. Midline was dc'd - h/o bacteremia 12/21/2016 due to enterococcus faecalis - s/p severe sepsis due to UTI, prob aspiration after hematemesis and multiple intubation events, and HCAP - s/p acute UGIB of unclear etiology; s/p EGD 10/01/2016 showing no active bleeding site - HLD and fatty liver - h/o alcoholism - chronic diastolic HF - diverticulosis, seen on CT at [facility] - severe protein calorie malnutrition - h/o fall and trauma to R foot recommendations: - pending results: Gram negative bacteria in respiratory culture - discontinue IV vancomycin - continue cefepime (01/10/2017-) empirically; will adjust antibiotics after reviewing final respiratory culture. Management d/w John KIRBY and Dr. Childers Problems: Consultation Date/Type/Reason Admit Date/Time Jan 09, 2017 at 18:37 Initial Consult Date 01/10/17 Type of Consultation: Infectious Disease Referring Provider: MATTHEW CALDERON MD 24 HR Interval Summary Free Text/Dictation Pt medicated for agitation earlier with Seroquel per d/w nursing staff. Pt non-verbal. Subjective hx not possible: pt non-verbal Exam/Review of Systems Vital Signs Vitals Vital Signs Date Time Temp Pulse Resp B/P Pulse Ox O2 Delivery O2 Flow Rate FiO2 01/14/17 20:03 98.0 86 13 116/71 97 01/14/17 17:10 50 01/12/17 18:47 Mechanical Ventilator 01/10/17 13:38 10.0 Intake and Output 01/13/17 01/13/17 01/14/17 15:00 23:00 07:00 Intake Total 940 ml 1510 ml Output Total 750 ml 1000 ml Balance 190 ml 510 ml Exam Constitutional: non-verbal, other (asleep) Head: atraumatic, normocephalic, other (temporal wasting noted) ENMT: nl external ears & nose Neck: other (tracheostomy) Respiratory: crackles, diminished breath sounds Cardiovascular: nl pulses, regular rate and rhythm Gastrointestinal: non-tender, other (G tube present), soft Genitourinary - Male: other (Robin present) Musculoskeletal: nl extremities to inspection Extremities: No edema Neurological: other (asleep) Skin: nl turgor, No rash or lesions Results Result Diagram: 01/14/17 0559 01/14/17 0559 Results 24 hrs Laboratory Tests Test 01/14/17 05:59 White Blood Count 7.9 # Red Blood Count 2.73 L Hemoglobin 8.0 L Hematocrit 25.6 L Mean Corpuscular Volume 93.8 Mean Corpuscular Hemoglobin 29.3 Mean Corpuscular Hemoglobin Concent 31.3 L Red Cell Distribution Width 18.0 H Platelet Count 216 Mean Platelet Volume 10.5 H Neutrophils % 71.1 Lymphocytes % 13.3 L Monocytes % 6.3 Eosinophils % 8.2 H Basophils % 0.6 Nucleated Red Blood Cells % 0.0 Neutrophils # (Manual) 6 Lymphocytes # 1.1 Monocytes # 0.5 Eosinophils # 0.7 H Basophils # 0.1 Nucleated Red Blood Cells # 0.0 Sodium Level 139 Potassium Level 3.8 Chloride Level 97 Carbon Dioxide Level 38 H Anion Gap 8 Blood Urea Nitrogen 20 Creatinine 0.52 L Glucose Level 120 Calcium Level 8.6 Medications Medications Current Medications Quetiapine Fumarate 25 mg 25 mg Q6 PRN PO AGITATION/ANXIETY Last administered on 01/14/17 09:19; Admin Dose 25 MG; Start 01/09/17 at 21:30 Cefepime HCl (Maxipime 1gm/50 ml (Pmx)) 50 ml @ 100 mls/hr Q12 IVPB Last administered on 01/14/17 09:17; Admin Dose 100 MLS/HR; Start 01/10/17 at 09:00 Ondansetron HCl (Zofran Inj) 4 mg Q6H PRN IV NAUSEA AND/OR VOMITING; Start at 22:00 Acetaminophen (Tylenol Tab) 650 mg Q6H PRN PO PAIN LEVEL 1-3 OR FEVER Last administered on 01/10/17 15:46; Admin Dose 650 MG; Start 01/09/17 at 22:00 Morphine Sulfate (morphine) 2 mg Q4H PRN IV PAIN LEVEL 7-10 Last administered on 01/13/17 00:00; Admin Dose 2 MG; Start 01/09/17 at 22:00 Clonidine (Catapres) 0.1 mg Q6 GTB Last administered on 01/14/17 18:09; Admin Dose 0.1 MG; Start 01/10/17 at 18:00 Diphenhydramine HCl (Benadryl) 25 mg Q6H PRN GTB ITCHING Last administered on 18:39; Admin Dose 25 MG; Start 01/10/17 at 17:00 Folic Acid (Folic Acid) 1 mg DAILY GTB Last administered on 01/14/17 09:19; Admin Dose 1 MG; Start 01/11/17 at 09:00 Acetaminophen/ Hydrocodone Bitart ([place] (5/325)) 1 tab Q4H PRN GTB PAIN LEVEL 4-10/10; Start 01/10/17 at 17:00 Lactobacillus Acidophilus (Florajen3 Capsule) 3 each TID PEG Last administered on 01/14/17 13:12; Admin Dose 3 EACH; Start 01/10/17 at 21:00 Lansoprazole (Prevacid) 30 mg DAILY GTB Last administered on 01/14/17 09:19; Admin Dose 30 MG; Start 01/11/17 at 09:00 Metoprolol Tartrate (Lopressor) 50 mg BID GTB Last administered on 01/14/17 09 :20; Admin Dose 50 MG; Start 01/10/17 at 21:00 Oxcarbazepine (Trileptal) 300 mg BID GTB Last administered on 01/14/17 09:18; Admin Dose 300 MG; Start 01/10/17 at 21:00 Metoprolol Tartrate (Lopressor) 5 mg Q4 PRN IV NOTE; Start 01/10/17 at 17:00 Ascorbic Acid (Vitamin C) 500 mg DAILY GTB Last administered on 01/14/17 09:18 ; Admin Dose 500 MG; Start 01/11/17 at 09:00 Docusate Sodium (Colace Liquid Cup) 100 mg BID GTB Last administered on 09:19; Admin Dose 100 MG; Start 01/10/17 at 21:00 Diphenhydramine HCl (Benadryl) 25 mg Q6H PRN IV Agitation Last administered on 01/13/17 17:04; Admin Dose 25 MG; Start 01/10/17 at 17:30 Multivitamins 30 ml 30 ml DAILY GTB Last administered on 01/14/17 09:19; Admin Dose 30 ML; Start 01/11/17 at 09:00 Sodium Chloride (NS) 1,000 ml @ 30 mls/hr Q24H IV Last administered on 14:30; Admin Dose 30 MLS/HR; Start 01/10/17 at 18:30 Acetaminophen 650 mg 650 mg Q6H PRN GTB FOR FEVER T>101 Last administered on 07:52; Admin Dose 650 MG; Start 01/10/17 at 18:30 Vancomycin HCl/ Sodium Chloride (Vancocin/NS) 250 ml @ 83.333 mls/ hr Q24H IVPB Last administered on 01/13/17 23:55; Admin Dose 83.333 MLS/HR; Start at 00:00 Haloperidol (Haldol) 10 mg Q6 PRN IM Agitation Last administered on 01/13/17 09:29; Admin Dose 10 MG; Start 01/12/17 at 16:30 Miscellaneous Information (*Rx Drug Level Order Reminder*) VANCOMYCIN TROUGH AT 2300 ONCE ONCE XX ; Start 01/14/17 at 23:00; Stop 01/14/17 at 23:01 MADISON CHILDERS M.D. 01/15/17 1627: Assessment/Plan Assessment/Plan Additional Assessment/Plan Liseth attestation: I discussed the management with CARSON Glover and agree with above Exam/Review of Systems Results Result Diagram: 01/14/17 0559 01/14/17 0559 RODRIGUEZ GLOVER NP Jan 14, 2017 20:20 MADISON CHILDERS M.D. Jan 15, 2017 16:27
[2017-01-15] VITALS (22 sets, daily range): BP systolic 110–130; BP diastolic 62–71; PULSE 72–85; RESP 13–36
[2017-01-15] MEDS: ALBUTEROL 18 GM INHALER INH SCH ×6 (02:06→19:58)
[2017-01-15] MEDS: IPRATROPIUM (HFA) 12.9 GM INHALER INH SCH ×6 (02:07→19:58)
[2017-01-15] MEDS: HYDROCODONE/APAP (5/325) TAB GTB PRN (06:07)
[2017-01-15 06:57] LABS: BASOPHIL # 0.1 10^3/ul (0.0-0.1); BASOPHILS % 0.8 % (0.0-2.0); EOSINOPHILS # 0.7 10^3/ul (0.0-0.5); EOSINOPHILS % 7.4 % (0.0-7.0); HEMATOCRIT 28.5 % (42.0-52.0); HEMOGLOBIN 9.1 g/dl (14.0-18.0); LYMPHOCYTES # 1.3 10^3/ul (0.8-2.9); LYMPHOCYTES % 13.4 % (15.0-51.0); MEAN CORPUSCULAR HEMOGLOBIN 29.6 pg (29.0-33.0); MEAN CORPUSCULAR HGB CONC 31.9 g/dl (32.0-37.0); MEAN CORPUSCULAR VOLUME 92.8 fl (82.0-101.0); MEAN PLATELET VOLUME 10.8 fl (7.4-10.4); MONOCYTE # 0.6 10^3/ul (0.3-0.9); MONOCYTES % 6.1 % (0.0-11.0); NEUTROPHILS % 71.7 % (39.0-77.0); PLATELET COUNT 295 10^3/UL (140-415); RED BLOOD COUNT 3.07 10^6/ul (4.70-6.10); RED CELL DISTRIBUTION WIDTH 17.5 % (11.5-14.5)
[2017-01-15 07:26] LABS: CALCIUM 8.9 mg/dl (8.4-10.2); CREATININE 0.44 mg/dl (0.61-1.24); POTASSIUM 3.9 mmol/L (3.5-5.1)
[2017-01-15] MEDS: OXCARBAZEPINE 300 MG TAB GTB SCH ×2 (09:39→21:10)
[2017-01-15] MEDS: ASCORBIC ACID 500 MG TAB GTB SCH (09:39)
[2017-01-15] MEDS: FOLIC ACID 1 MG TAB GTB SCH (09:39)
[2017-01-15] MEDS: LANSOPRAZOLE 30 MG CAP GTB SCH (09:39)
[2017-01-15] MEDS: MULTIVITAMINS 30 ML CUP GTB SCH (09:39)
[2017-01-15] MEDS: CEFEPIME 1GM/50 ML (PMX) 50 ML IVPB SCH ×2 (09:40→21:09)
[2017-01-15] MEDS: L ACIDOPHIL/B LACTIS/B LONGUM CAPSULE PEG SCH ×3 (09:40→21:10)
[2017-01-15] MEDS: METOPROLOL 50 MG TAB GTB SCH ×2 (09:41→21:11)
[2017-01-15] MEDS: SOD CHLORIDE 0.9% 1,000 ML IV SCH ×2 (10:41→13:45)
--- NOTE | 2017-01-15 11:38 | CONS ---
Date/Time of Note Date/Time of Note DATE: 01/15/17 TIME: 11:34 Assessment/Plan Assessment/Plan Additional Assessment/Plan 1. Tachycardia - with underlying infection. Better now - in sinus at 60s currently. 2. Heart failure. The patient has a history of congestive heart failure, does not appear to be in fluid overload. Continue to monitor closely. Diast HF, chronic. 3. Chest pain - R/O NE, doubt ischemai. Troponins are negative. 4. Infection. Continue the patient on anti-bx. 5. Respiratory failure. The patient is on a ventilator,continue to follow as needed. 6. History of pneumonia. Continue pneumonia care per primary team. 7. Anemia. Hemoglobin is fairly stable. No evidence of bleeding now. Consultation Date/Type/Reason Admit Date/Time Jan 09, 2017 at 18:37 Initial Consult Date 01/10/17 Type of Consultation: Infectious Disease Referring Provider: MATTHEW CALDERON MD 24 HR Interval Summary Free Text/Dictation Tachycardia - with underlying infection. Better now - in sinus at 60s currently. ROS: No fever, no chills, no nausea, no vomiting, no diarrhea/constipation No recent weight changes No chest pain, no PND, no orthopnea + SOB (chronic) No dizziness, blurred vision No thirst, no heat or cold intolerance Exam/Review of Systems Vital Signs Vitals Vital Signs Date Time Temp Pulse Resp B/P Pulse Ox O2 Delivery O2 Flow Rate FiO2 01/15/17 11:20 66 23 97 50 01/15/17 07:34 98.6 121/69 01/12/17 18:47 Mechanical Ventilator Intake and Output 01/14/17 01/14/17 01/15/17 15:00 23:00 07:00 Intake Total 100 ml 1350 ml 1140 ml Output Total 1600 ml 1250 ml Balance 100 ml -250 ml -110 ml Exam General: WN/WD/NAD, AOx comfortable HEENT: Unicetric/atraumatic/EOMI (does not follow commands) NECK: trach, no LAD Lymph: no lymphadenopathy HEART: regular with no S3, II/ systolic murmur at apex LUNGS: Coarse sounds ABD: soft, NT, ND, +BS : Intact Neuro: non focal SKIN: chronic changes EXT: trace edema Results Result Diagram: 01/15/17 0611 01/15/17 0611 Results 24 hrs Laboratory Tests Test 01/15/17 06:11 White Blood Count 10.0 # Red Blood Count 3.07 L Hemoglobin 9.1 L Hematocrit 28.5 L Mean Corpuscular Volume 92.8 Mean Corpuscular Hemoglobin 29.6 Mean Corpuscular Hemoglobin Concent 31.9 L Red Cell Distribution Width 17.5 H Platelet Count 295 # Mean Platelet Volume 10.8 H Neutrophils % 71.7 Lymphocytes % 13.4 L Monocytes % 6.1 Eosinophils % 7.4 H Basophils % 0.8 Nucleated Red Blood Cells % 0.0 Neutrophils # (Manual) 7 Lymphocytes # 1.3 Monocytes # 0.6 Eosinophils # 0.7 H Basophils # 0.1 Nucleated Red Blood Cells # 0.0 Sodium Level 140 Potassium Level 3.9 Chloride Level 91 L Carbon Dioxide Level 39 H Anion Gap 14 Blood Urea Nitrogen 19 Creatinine 0.44 L Glucose Level 129 Calcium Level 8.9 Medications Medications Current Medications Quetiapine Fumarate 25 mg 25 mg Q6 PRN PO AGITATION/ANXIETY Last administered on 01/14/17 09:19; Admin Dose 25 MG; Start 01/09/17 at 21:30 Cefepime HCl (Maxipime 1gm/50 ml (Pmx)) 50 ml @ 100 mls/hr Q12 IVPB Last administered on 01/15/17 09:40; Admin Dose 100 MLS/HR; Start 01/10/17 at 09:00 Ondansetron HCl (Zofran Inj) 4 mg Q6H PRN IV NAUSEA AND/OR VOMITING; Start at 22:00 Acetaminophen (Tylenol Tab) 650 mg Q6H PRN PO PAIN LEVEL 1-3 OR FEVER Last administered on 01/10/17 15:46; Admin Dose 650 MG; Start 01/09/17 at 22:00 Morphine Sulfate (morphine) 2 mg Q4H PRN IV PAIN LEVEL 7-10 Last administered on 01/13/17 00:00; Admin Dose 2 MG; Start 01/09/17 at 22:00 Clonidine (Catapres) 0.1 mg Q6 GTB Last administered on 01/14/17 18:09; Admin Dose 0.1 MG; Start 01/10/17 at 18:00 Diphenhydramine HCl (Benadryl) 25 mg Q6H PRN GTB ITCHING Last administered on 18:39; Admin Dose 25 MG; Start 01/10/17 at 17:00 Folic Acid (Folic Acid) 1 mg DAILY GTB Last administered on 01/15/17 09:39; Admin Dose 1 MG; Start 01/11/17 at 09:00 Acetaminophen/ Hydrocodone Bitart ([place] (5/325)) 1 tab Q4H PRN GTB PAIN LEVEL 4-10/10 Last administered on 01/15/17 06:07; Admin Dose 1 TAB; Start 01/10/17 at 17:00 Lactobacillus Acidophilus (Florajen3 Capsule) 3 each TID PEG Last administered on 01/15/17 09:40; Admin Dose 3 EACH; Start 01/10/17 at 21:00 Lansoprazole (Prevacid) 30 mg DAILY GTB Last administered on 01/15/17 09:39; Admin Dose 30 MG; Start 01/11/17 at 09:00 Metoprolol Tartrate (Lopressor) 50 mg BID GTB Last administered on 01/15/17 09 :41; Admin Dose 50 MG; Start 01/10/17 at 21:00 Oxcarbazepine (Trileptal) 300 mg BID GTB Last administered on 01/15/17 09:39; Admin Dose 300 MG; Start 01/10/17 at 21:00 Metoprolol Tartrate (Lopressor) 5 mg Q4 PRN IV NOTE; Start 01/10/17 at 17:00 Ascorbic Acid (Vitamin C) 500 mg DAILY GTB Last administered on 01/15/17 09:39 ; Admin Dose 500 MG; Start 01/11/17 at 09:00 Diphenhydramine HCl (Benadryl) 25 mg Q6H PRN IV Agitation Last administered on 01/13/17 17:04; Admin Dose 25 MG; Start 01/10/17 at 17:30 Multivitamins 30 ml 30 ml DAILY GTB Last administered on 01/15/17 09:39; Admin Dose 30 ML; Start 01/11/17 at 09:00 Sodium Chloride (NS) 1,000 ml @ 30 mls/hr Q24H IV Last administered on 10:41; Admin Dose 30 MLS/HR; Start 01/10/17 at 18:30 Acetaminophen (Tylenol Liquid) 650 mg Q6H PRN GTB FOR FEVER T>101 Last administered on 01/13/17 07:52; Admin Dose 650 MG; Start 01/10/17 at 18:30 Haloperidol (Haldol) 10 mg Q6 PRN IM Agitation Last administered on 01/13/17 09:29; Admin Dose 10 MG; Start 01/12/17 at 16:30 REED DESIR MD Jan 15, 2017 11:37
--- NOTE | 2017-01-15 16:32 | CONS ---
Date/Time of Note Date/Time of Note DATE: 01/15/17 TIME: 16:27 Assessment/Plan Assessment/Plan Chief Complaint/Hosp Course assessment/impression - sepsis vs. SIRS from adverse reaction to lorazepam at [facility] prior to transfer here - mental status change after lorazepam - s/p recurrent sepsis due to HCAP and UTI - h/o HCAP due to MDR acinetobacter and ESBL E. 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 Coli - h/o funguria - h/o thrush - h/o bacteremia 10/28/2016 due to enterococcus faecium. Midline was dc'd - h/o bacteremia 12/21/2016 due to enterococcus faecalis - s/p severe sepsis due to UTI, prob aspiration after hematemesis and multiple intubation events, and HCAP - s/p acute UGIB of unclear etiology; s/p EGD 10/01/2016 showing no active bleeding site - HLD and fatty liver - h/o alcoholism - chronic diastolic HF - diverticulosis, seen on CT at [facility] - severe protein calorie malnutrition - h/o fall and trauma to R foot recommendations: - continue cefepime (01/10/2017-), I recommend 7 days. Pt's colonized with multiple bacteria, and it is impossible to cover all bacteria. Pt's condition improved and his WBC level has remained stable. Therefore I recommend continuing the current antibiotic regimen. management d/w Pt's Problems: Consultation Date/Type/Reason Admit Date/Time Jan 09, 2017 at 18:37 Initial Consult Date 01/10/17 Type of Consultation: Infectious Disease Referring Provider: MATTHEW CALDERON MD 24 HR Interval Summary Subjective hx not possible: pt non-verbal Exam/Review of Systems Vital Signs Vitals Vital Signs Date Time Temp Pulse Resp B/P Pulse Ox O2 Delivery O2 Flow Rate FiO2 01/15/17 15:54 98.7 81 18 130/66 99 01/15/17 15:05 50 01/12/17 18:47 Mechanical Ventilator Intake and Output 8/01/14/17 01/15/17 15:00 23:00 07:00 Intake Total 100 ml 1350 ml 1140 ml Output Total 1600 ml 1250 ml Balance 100 ml -250 ml -110 ml Exam Constitutional: frail, non-verbal Psych: confusion Head: normocephalic Eyes: nl conjunctiva, nl lids ENMT: nl external ears & nose, nl nasal mucosa & septum Neck: other (trach) Respiratory: crackles/rales Cardiovascular: nl pulses, regular rate and rhythm Gastrointestinal: non-tender, soft Musculoskeletal: nl extremities to inspection Extremities: No edema Neurological: confused Skin: other (mild erythema of the face) Results Result Diagram: 01/15/17 0611 01/15/17 0611 Results 24 hrs Laboratory Tests Test 01/15/17 06:11 White Blood Count 10.0 # Red Blood Count 3.07 L Hemoglobin 9.1 L Hematocrit 28.5 L Mean Corpuscular Volume 92.8 Mean Corpuscular Hemoglobin 29.6 Mean Corpuscular Hemoglobin Concent 31.9 L Red Cell Distribution Width 17.5 H Platelet Count 295 # Mean Platelet Volume 10.8 H Neutrophils % 71.7 Lymphocytes % 13.4 L Monocytes % 6.1 Eosinophils % 7.4 H Basophils % 0.8 Nucleated Red Blood Cells % 0.0 Neutrophils # (Manual) 7 Lymphocytes # 1.3 Monocytes # 0.6 Eosinophils # 0.7 H Basophils # 0.1 Nucleated Red Blood Cells # 0.0 Sodium Level 140 Potassium Level 3.9 Chloride Level 91 L Carbon Dioxide Level 39 H Anion Gap 14 Blood Urea Nitrogen 19 Creatinine 0.44 L Glucose Level 129 Calcium Level 8.9 Medications Medications Current Medications Quetiapine Fumarate 25 mg 25 mg Q6 PRN PO AGITATION/ANXIETY Last administered on 01/14/17 09:19; Admin Dose 25 MG; Start 01/09/17 at 21:30 Cefepime HCl (Maxipime 1gm/50 ml (Pmx)) 50 ml @ 100 mls/hr Q12 IVPB Last administered on 01/15/17 09:40; Admin Dose 100 MLS/HR; Start 01/10/17 at 09:00 Ondansetron HCl (Zofran Inj) 4 mg Q6H PRN IV NAUSEA AND/OR VOMITING; Start at 22:00 Acetaminophen (Tylenol Tab) 650 mg Q6H PRN PO PAIN LEVEL 1-3 OR FEVER Last administered on 01/10/17 15:46; Admin Dose 650 MG; Start 01/09/17 at 22:00 Morphine Sulfate (morphine) 2 mg Q4H PRN IV PAIN LEVEL 7-10 Last administered on 01/13/17 00:00; Admin Dose 2 MG; Start 01/09/17 at 22:00 Clonidine (Catapres) 0.1 mg Q6 GTB Last administered on 01/15/17 12:34; Admin Dose 0.1 MG; Start 01/10/17 at 18:00 Diphenhydramine HCl (Benadryl) 25 mg Q6H PRN GTB ITCHING Last administered on 18:39; Admin Dose 25 MG; Start 01/10/17 at 17:00 Folic Acid (Folic Acid) 1 mg DAILY GTB Last administered on 01/15/17 09:39; Admin Dose 1 MG; Start 01/11/17 at 09:00 Acetaminophen/ Hydrocodone Bitart ([place] (5/325)) 1 tab Q4H PRN GTB PAIN LEVEL 4-10/10 Last administered on 01/15/17 06:07; Admin Dose 1 TAB; Start 01/10/17 at 17:00 Lactobacillus Acidophilus (Florajen3 Capsule) 3 each TID PEG Last administered on 01/15/17 12:53; Admin Dose 3 EACH; Start 01/10/17 at 21:00 Lansoprazole (Prevacid) 30 mg DAILY GTB Last administered on 01/15/17 09:39; Admin Dose 30 MG; Start 01/11/17 at 09:00 Metoprolol Tartrate (Lopressor) 50 mg BID GTB Last administered on 01/15/17 09 :41; Admin Dose 50 MG; Start 01/10/17 at 21:00 Oxcarbazepine (Trileptal) 300 mg BID GTB Last administered on 01/15/17 09:39; Admin Dose 300 MG; Start 01/10/17 at 21:00 Metoprolol Tartrate (Lopressor) 5 mg Q4 PRN IV NOTE; Start 01/10/17 at 17:00 Ascorbic Acid (Vitamin C) 500 mg DAILY GTB Last administered on 01/15/17 09:39 ; Admin Dose 500 MG; Start 01/11/17 at 09:00 Diphenhydramine HCl (Benadryl) 25 mg Q6H PRN IV Agitation Last administered on 01/13/17 17:04; Admin Dose 25 MG; Start 01/10/17 at 17:30 Multivitamins 30 ml 30 ml DAILY GTB Last administered on 01/15/17 09:39; Admin Dose 30 ML; Start 01/11/17 at 09:00 Sodium Chloride (NS) 1,000 ml @ 30 mls/hr Q24H IV Last administered on 10:41; Admin Dose 30 MLS/HR; Start 01/10/17 at 18:30 Acetaminophen (Tylenol Liquid) 650 mg Q6H PRN GTB FOR FEVER T>101 Last administered on 01/13/17 07:52; Admin Dose 650 MG; Start 01/10/17 at 18:30 Haloperidol (Haldol) 10 mg Q6 PRN IM Agitation Last administered on 01/13/17 09:29; Admin Dose 10 MG; Start 01/12/17 at 16:30 MADISON PIERRE M.D. Jan 15, 2017 16:32
--- NOTE | 2017-01-15 17:05 | PN ---
Date/Time of Note Date/Time of Note DATE: 01/15/17 TIME: 17:03 Assessment/Plan VTE Prophylaxis VTE Prophylaxis Intervention: SCD's Lines/Catheters IV Catheter Type (from Nrs): Peripheral IV Urinary Cath still in place: Yes Reason Cath still needed: urinary retention Assessment/Plan Chief Complaint/Hosp Course Patient remains hemodynamically stable, no fever. Assessment/Plan - Possible recurrent sepsis. Dr. Laguerre is following infection disease consultation. Continue antibiotics per ID. - Pulmonary fibrosis. - Ventilatory dependent respiratory failure with tracheostomy. Dr. Souza is following in pulmonology consultation. - Chronic diastolic congestive heart failure. - Dysphagia with PEG. - Fatty liver. - Anemia, stool for OB, continue to monitor. Further recommendations based on clinical course. Plan of care discussed with Dr. Austin Problems: Exam/Review of Systems Vital Signs Vitals Vital Signs Date Time Temp Pulse Resp B/P Pulse Ox O2 Delivery O2 Flow Rate FiO2 01/15/17 16:30 77 01/15/17 15:54 98.7 18 130/66 99 01/15/17 15:05 50 01/12/17 18:47 Mechanical Ventilator Intake and Output 01/14/17 01/14/17 01/15/17 15:00 23:00 07:00 Intake Total 100 ml 1350 ml 1140 ml Output Total 1600 ml 1250 ml Balance 100 ml -250 ml -110 ml Exam Constitutional: alert Respiratory: diminished breath sounds Cardiovascular: nl pulses Gastrointestinal: non-tender, soft Extremities: normal pulses Results Result Diagram: 01/15/17 0611 01/15/17 0611 Results 24 hrs Laboratory Tests Test 01/15/17 06:11 White Blood Count 10.0 # Red Blood Count 3.07 L Hemoglobin 9.1 L Hematocrit 28.5 L Mean Corpuscular Volume 92.8 Mean Corpuscular Hemoglobin 29.6 Mean Corpuscular Hemoglobin Concent 31.9 L Red Cell Distribution Width 17.5 H Platelet Count 295 # Mean Platelet Volume 10.8 H Neutrophils % 71.7 Lymphocytes % 13.4 L Monocytes % 6.1 Eosinophils % 7.4 H Basophils % 0.8 Nucleated Red Blood Cells % 0.0 Neutrophils # (Manual) 7 Lymphocytes # 1.3 Monocytes # 0.6 Eosinophils # 0.7 H Basophils # 0.1 Nucleated Red Blood Cells # 0.0 Sodium Level 140 Potassium Level 3.9 Chloride Level 91 L Carbon Dioxide Level 39 H Anion Gap 14 Blood Urea Nitrogen 19 Creatinine 0.44 L Glucose Level 129 Calcium Level 8.9 Medications Medications Current Medications Quetiapine Fumarate 25 mg 25 mg Q6 PRN PO AGITATION/ANXIETY Last administered on 01/14/17 09:19; Admin Dose 25 MG; Start 01/09/17 at 21:30 Cefepime HCl (Maxipime 1gm/50 ml (Pmx)) 50 ml @ 100 mls/hr Q12 IVPB Last administered on 01/15/17 09:40; Admin Dose 100 MLS/HR; Start 01/10/17 at 09:00 Ondansetron HCl (Zofran Inj) 4 mg Q6H PRN IV NAUSEA AND/OR VOMITING; Start at 22:00 Acetaminophen (Tylenol Tab) 650 mg Q6H PRN PO PAIN LEVEL 1-3 OR FEVER Last administered on 01/10/17 15:46; Admin Dose 650 MG; Start 01/09/17 at 22:00 Morphine Sulfate (morphine) 2 mg Q4H PRN IV PAIN LEVEL 7-10 Last administered on 01/13/17 00:00; Admin Dose 2 MG; Start 01/09/17 at 22:00 Clonidine (Catapres) 0.1 mg Q6 GTB Last administered on 01/15/17 12:34; Admin Dose 0.1 MG; Start 01/10/17 at 18:00 Diphenhydramine HCl (Benadryl) 25 mg Q6H PRN GTB ITCHING Last administered on 18:39; Admin Dose 25 MG; Start 01/10/17 at 17:00 Folic Acid (Folic Acid) 1 mg DAILY GTB Last administered on 01/15/17 09:39; Admin Dose 1 MG; Start 01/11/17 at 09:00 Acetaminophen/ Hydrocodone Bitart ([place] (5/325)) 1 tab Q4H PRN GTB PAIN LEVEL 4-10/10 Last administered on 01/15/17 06:07; Admin Dose 1 TAB; Start 01/10/17 at 17:00 Lactobacillus Acidophilus (Florajen3 Capsule) 3 each TID PEG Last administered on 01/15/17 12:53; Admin Dose 3 EACH; Start 01/10/17 at 21:00 Lansoprazole (Prevacid) 30 mg DAILY GTB Last administered on 01/15/17 09:39; Admin Dose 30 MG; Start 01/11/17 at 09:00 Metoprolol Tartrate (Lopressor) 50 mg BID GTB Last administered on 01/15/17 09 :41; Admin Dose 50 MG; Start 01/10/17 at 21:00 Oxcarbazepine (Trileptal) 300 mg BID GTB Last administered on 01/15/17 09:39; Admin Dose 300 MG; Start 01/10/17 at 21:00 Metoprolol Tartrate (Lopressor) 5 mg Q4 PRN IV NOTE; Start 01/10/17 at 17:00 Ascorbic Acid (Vitamin C) 500 mg DAILY GTB Last administered on 01/15/17 09:39 ; Admin Dose 500 MG; Start 01/11/17 at 09:00 Diphenhydramine HCl (Benadryl) 25 mg Q6H PRN IV Agitation Last administered on 01/13/17 17:04; Admin Dose 25 MG; Start 01/10/17 at 17:30 Multivitamins 30 ml 30 ml DAILY GTB Last administered on 01/15/17 09:39; Admin Dose 30 ML; Start 01/11/17 at 09:00 Sodium Chloride (NS) 1,000 ml @ 30 mls/hr Q24H IV Last administered on 10:41; Admin Dose 30 MLS/HR; Start 01/10/17 at 18:30 Acetaminophen (Tylenol Liquid) 650 mg Q6H PRN GTB FOR FEVER T>101 Last administered on 01/13/17 07:52; Admin Dose 650 MG; Start 01/10/17 at 18:30 Haloperidol (Haldol) 10 mg Q6 PRN IM Agitation Last administered on 01/13/17 09:29; Admin Dose 10 MG; Start 01/12/17 at 16:30 MARIO LAND Jan 15, 2017 17:05
--- NOTE | 2017-01-15 19:18 | PN ---
DATE: 01/15/2017 SUBJECTIVE DATA: This patient is stable this morning. No new events. OBJECTIVE DATA: VITAL SIGNS: Temperature 99, pulse 77, blood pressure 116/71, O2 sat 96 percent, FiO2 of 50 percent. HEENT: Trach site clean and intact. CARDIAC: S1 and S2. No added sounds or murmurs. CHEST: Diminished air entry bilaterally. ABDOMEN: Soft, nontender. No guarding or rebound. EXTREMITIES: No cyanosis, clubbing or edema. NEUROLOGIC: Generalized weakness. LABORATORY AND DIAGNOSTIC DATA: White count 10.0, hemoglobin 9.1, platelets of 295. BUN 19, creatinine 0.44. IMPRESSION: 1. Vent dependent respiratory failure. 2. History of fibrotic lung disease. 3. History of hypertension. PLAN: 1. Continue vent support. 2. Continue cardiac recommendations. 3. Consider discharge planning and de-escalation of antibiotics. Dictated By: Manolo Souza MD /indio/donald /Document#: [id number]
[2017-01-15] MEDS: QUETIAPINE 25 MG TAB PO PRN (22:47)
[2017-01-16] VITALS (25 sets, daily range): BP systolic 96–143; BP diastolic 57–74; PULSE 74–86; RESP 18–32
[2017-01-16] MEDS: IPRATROPIUM (HFA) 12.9 GM INHALER INH SCH ×6 (01:51→20:25)
[2017-01-16] MEDS: ALBUTEROL 18 GM INHALER INH SCH ×6 (01:51→20:25)
[2017-01-16 07:00] LABS: BASOPHIL # 0.1 10^3/ul (0.0-0.1); BASOPHILS % 0.8 % (0.0-2.0); EOSINOPHILS # 0.8 10^3/ul (0.0-0.5); EOSINOPHILS % 9.2 % (0.0-7.0); HEMATOCRIT 26.4 % (42.0-52.0); HEMOGLOBIN 8.6 g/dl (14.0-18.0); LYMPHOCYTES % 12.3 % (15.0-51.0); MEAN CORPUSCULAR HEMOGLOBIN 30.1 pg (29.0-33.0); MEAN CORPUSCULAR HGB CONC 32.6 g/dl (32.0-37.0); MEAN CORPUSCULAR VOLUME 92.3 fl (82.0-101.0); MEAN PLATELET VOLUME 10.8 fl (7.4-10.4); MONOCYTE # 0.5 10^3/ul (0.3-0.9); MONOCYTES % 6.3 % (0.0-11.0); NEUTROPHILS % 70.6 % (39.0-77.0); PLATELET COUNT 268 10^3/UL (140-415); RED BLOOD COUNT 2.86 10^6/ul (4.70-6.10); RED CELL DISTRIBUTION WIDTH 17.5 % (11.5-14.5); WHITE BLOOD COUNT 8.4 10^3/ul (4.8-10.8)
[2017-01-16 07:27] LABS: CALCIUM 8.7 mg/dl (8.4-10.2); CREATININE 0.44 mg/dl (0.61-1.24); POTASSIUM 3.8 mmol/L (3.5-5.1)
[2017-01-16] MEDS: MULTIVITAMINS 30 ML CUP GTB SCH (09:17)
[2017-01-16] MEDS: OXCARBAZEPINE 300 MG TAB GTB SCH ×2 (09:18→20:53)
[2017-01-16] MEDS: HYDROCODONE/APAP (5/325) TAB GTB PRN ×2 (09:18→18:34)
[2017-01-16] MEDS: FOLIC ACID 1 MG TAB GTB SCH (09:18)
[2017-01-16] MEDS: METOPROLOL 50 MG TAB GTB SCH ×2 (09:18→20:54)
[2017-01-16] MEDS: L ACIDOPHIL/B LACTIS/B LONGUM CAPSULE PEG SCH ×3 (09:19→21:01)
[2017-01-16] MEDS: CEFEPIME 1GM/50 ML (PMX) 50 ML IVPB SCH ×2 (09:19→20:53)
[2017-01-16] MEDS: LANSOPRAZOLE 30 MG CAP GTB SCH (09:19)
[2017-01-16] MEDS: ASCORBIC ACID 500 MG TAB GTB SCH (09:19)
--- NOTE | 2017-01-16 11:34 | PN ---
DATE: 01/16/2017 SUBJECTIVE DATA: Mr. Mera's condition remains stable. The patient is awake, alert, and remains chronically ventilator dependent at full support. Patient has remained hemodynamically stable. No untoward events reported. OBJECTIVE DATA: GENERAL: Elderly male, awake, alert, currently in no distress. VITAL SIGNS: Temperature 98.8 degrees Fahrenheit, respiratory rate is 24 per minute, heart rate 80 per minute, blood pressure 110/70, O2 sat 95 percent. Urine output is fair. Ventilator settings are AC of 24, tidal volume 500, PEEP of 5, 45 percent FiO2. HEENT: Supple neck. tracheostomy in place. The patient is edentulous. No neck masses. No thyromegaly. Pupils are small bilaterally. CHEST: Scattered crackles bilaterally. S1, S2 audible. CARDIAC: No murmurs. Regular rhythm. ABDOMEN: Soft, nontender. No organomegaly. G-tube in place. Bowel sounds audible. EXTREMITIES: No peripheral edema. D[employer] OUT [employer]ER: Patient is awake, follows simple commands and moves all 4 extremities on command. MEDICATIONS: Reviewed. ASSESSMENT: 1. Patient admitted for sepsis with pneumonia with interval improvement. 2. History of hypertension. 3. End-stage pulmonary fibrosis. The patient remains chronically ventilator dependent. RECOMMENDATIONS: Continue current supportive care. Patient awaiting transfer to a nursing facility. Prognosis remains poor. Dictated By: Alexei Benavides MD /indio/agnes /Document#: [id number]
--- NOTE | 2017-01-16 13:00 | CONS ---
Date/Time of Note Date/Time of Note DATE: 01/16/17 TIME: 12:58 Assessment/Plan Assessment/Plan Chief Complaint/Hosp Course IMP: 1.Diastolic CHF 2.HTN 3.Resp failure-chronic s/p trach 4.Pulmonary fibrosis 5. PNA 6.UTI Recc: -Tele -Continue BB -Continue abx's and bronchodilators -Follow volume status closely Problems: Consultation Date/Type/Reason Admit Date/Time Jan 09, 2017 at 18:37 Initial Consult Date 01/10/17 Type of Consultation: cardiology Reason for Consultation tachycardia Referring Provider: MATTHEW CALDERON MD Exam/Review of Systems Vital Signs Vitals Vital Signs Date Time Temp Pulse Resp B/P Pulse Ox O2 Delivery O2 Flow Rate FiO2 01/16/17 12:28 74 01/16/17 11:00 99.3 29 113/63 99 01/16/17 05:00 50 01/12/17 18:47 Mechanical Ventilator Intake and Output 01/15/17 01/15/17 01/16/17 15:00 23:00 07:00 Intake Total 100 ml 1550 ml 1550 ml Output Total 1500 ml 1350 ml Balance 100 ml 50 ml 200 ml Exam Review of Systems: CONSTITUTIONAL: No fevers, chills. PULMONARY: trached CARDIOVASCULAR: No chest pain/palpitations GASTROINTESTINAL: No nausea/vomiting. GENITOURINARY: No hematuria/dysuria. MUSCULOSKELETAL: No myagias/arthalgias. PSYCHIATRIC: The patient denies depression. NEUROLOGIC: No weakness Constitutional: alert Psych: no complaints Head: normocephalic ENMT: mucosa pink and moist Neck: jvd (9 cm water), supple Respiratory: diminished breath sounds (at bases/B) Cardiovascular: regular rate and rhythm Gastrointestinal: non-tender, soft Musculoskeletal: muscle tone (normal) Extremities: edema (none) Neurological: other (No focal deficits) Results Result Diagram: 01/16/17 0558 01/16/17 0558 Results 24 hrs Laboratory Tests Test 01/15/17 19:10 01/16/17 05:58 Stool Occult Blood NEGATIVE White Blood Count 8.4 Red Blood Count 2.86 L Hemoglobin 8.6 L Hematocrit 26.4 L Mean Corpuscular Volume 92.3 Mean Corpuscular Hemoglobin 30.1 Mean Corpuscular Hemoglobin Concent 32.6 Red Cell Distribution Width 17.5 H Platelet Count 268 Mean Platelet Volume 10.8 H Neutrophils % 70.6 Lymphocytes % 12.3 L Monocytes % 6.3 Eosinophils % 9.2 H Basophils % 0.8 Nucleated Red Blood Cells % 0.0 Neutrophils # (Manual) 6 Lymphocytes # 1.0 Monocytes # 0.5 Eosinophils # 0.8 H Basophils # 0.1 Nucleated Red Blood Cells # 0.0 Sodium Level 137 Potassium Level 3.8 Chloride Level 88 L Carbon Dioxide Level 39 H Anion Gap 14 Blood Urea Nitrogen 18 Creatinine 0.44 L Glucose Level 114 Calcium Level 8.7 Medications Medications Current Medications Quetiapine Fumarate 25 mg 25 mg Q6 PRN PO AGITATION/ANXIETY Last administered on 01/15/17 22:47; Admin Dose 25 MG; Start 01/09/17 at 21:30 Cefepime HCl (Maxipime 1gm/50 ml (Pmx)) 50 ml @ 100 mls/hr Q12 IVPB Last administered on 01/16/17 09:19; Admin Dose 100 MLS/HR; Start 01/10/17 at 09:00 Ondansetron HCl (Zofran Inj) 4 mg Q6H PRN IV NAUSEA AND/OR VOMITING; Start at 22:00 Acetaminophen (Tylenol Tab) 650 mg Q6H PRN PO PAIN LEVEL 1-3 OR FEVER Last administered on 01/10/17 15:46; Admin Dose 650 MG; Start 01/09/17 at 22:00 Morphine Sulfate (morphine) 2 mg Q4H PRN IV PAIN LEVEL 7-10 Last administered on 01/13/17 00:00; Admin Dose 2 MG; Start 01/09/17 at 22:00 Clonidine (Catapres) 0.1 mg Q6 GTB Last administered on 01/15/17 18:01; Admin Dose 0.1 MG; Start 01/10/17 at 18:00 Diphenhydramine HCl (Benadryl) 25 mg Q6H PRN GTB ITCHING Last administered on 18:39; Admin Dose 25 MG; Start 01/10/17 at 17:00 Folic Acid (Folic Acid) 1 mg DAILY GTB Last administered on 01/16/17 09:18; Admin Dose 1 MG; Start 01/11/17 at 09:00 Acetaminophen/ Hydrocodone Bitart ([place] (5/325)) 1 tab Q4H PRN GTB PAIN LEVEL 4-10/10 Last administered on 01/16/17 09:18; Admin Dose 1 TAB; Start 01/10/17 at 17:00 Lactobacillus Acidophilus (Florajen3 Capsule) 3 each TID PEG Last administered on 01/16/17 09:19; Admin Dose 3 EACH; Start 01/10/17 at 21:00 Lansoprazole (Prevacid) 30 mg DAILY GTB Last administered on 01/16/17 09:19; Admin Dose 30 MG; Start 01/11/17 at 09:00 Metoprolol Tartrate (Lopressor) 50 mg BID GTB Last administered on 01/16/17 09 :18; Admin Dose 50 MG; Start 01/10/17 at 21:00 Oxcarbazepine (Trileptal) 300 mg BID GTB Last administered on 01/16/17 09:18; Admin Dose 300 MG; Start 01/10/17 at 21:00 Metoprolol Tartrate (Lopressor) 5 mg Q4 PRN IV NOTE; Start 01/10/17 at 17:00 Ascorbic Acid (Vitamin C) 500 mg DAILY GTB Last administered on 01/16/17 09:19 ; Admin Dose 500 MG; Start 01/11/17 at 09:00 Diphenhydramine HCl (Benadryl) 25 mg Q6H PRN IV Agitation Last administered on 01/13/17 17:04; Admin Dose 25 MG; Start 01/10/17 at 17:30 Multivitamins 30 ml 30 ml DAILY GTB Last administered on 01/16/17 09:17; Admin Dose 30 ML; Start 01/11/17 at 09:00 Sodium Chloride (NS) 1,000 ml @ 30 mls/hr Q24H IV Last administered on 10:41; Admin Dose 30 MLS/HR; Start 01/10/17 at 18:30 Acetaminophen (Tylenol Liquid) 650 mg Q6H PRN GTB FOR FEVER T>101 Last administered on 01/13/17 07:52; Admin Dose 650 MG; Start 01/10/17 at 18:30 Haloperidol (Haldol) 10 mg Q6 PRN IM Agitation Last administered on 01/13/17 09:29; Admin Dose 10 MG; Start 01/12/17 at 16:30 CLOVIS LEON Jan 16, 2017 12:59
[2017-01-16] MEDS: ACETAMINOPHEN 650MG/20.3ML CUP GTB PRN ×2 (14:51→21:01)
[2017-01-16] MEDS: SOD CHLORIDE 0.9% 1,000 ML IV SCH (14:51)
--- NOTE | 2017-01-16 15:16 | PN ---
Date/Time of Note Date/Time of Note DATE: 01/16/17 TIME: 15:13 Assessment/Plan VTE Prophylaxis VTE Prophylaxis Intervention: SCD's Lines/Catheters IV [facility]ter Type [facility]from [facility]): Peripheral IV Urinary Cath still in place: Yes Reason Cath still needed: urinary retention Assessment/Plan Chief Complaint/Hosp Course Patient's continues to have large amount secretions from tracheostomy, or patient is more calm, hemodynamically stable. Assessment/Plan - Possible recurrent sepsis. Dr. Laguerre is following infection disease consultation. Continue antibiotics per ID. - Pulmonary fibrosis. - Ventilatory dependent respiratory failure with tracheostomy. Dr. Souza is following in pulmonology consultation. - Chronic diastolic congestive heart failure. - Dysphagia with PEG. - Fatty liver. - Anemia, stool for OB is negative, continue to monitor H&H. Further recommendations based on clinical course. Plan of care discussed with Dr. Austin Problems: Exam/Review of Systems Vital Signs Vitals Vital Signs Date Time Temp Pulse Resp B/P Pulse Ox O2 Delivery O2 Flow Rate FiO2 01/16/17 12:28 74 01/16/17 11:20 32 99 45 01/16/17 11:00 99.3 113/63 01/12/17 18:47 Mechanical Ventilator Intake and Output 01/15/17 01/15/17 01/16/17 15:00 23:00 07:00 Intake Total 100 ml 1550 ml 1550 ml Output Total 1500 ml 1350 ml Balance 100 ml 50 ml 200 ml Exam Constitutional: alert, non-verbal Head: normocephalic Neck: other Respiratory: diminished breath sounds Cardiovascular: nl pulses Gastrointestinal: non-tender, other (G-tube), soft Extremities: normal pulses Results Result Diagram: 01/16/17 0558 01/16/17 0558 Results 24 hrs Laboratory Tests Test 01/15/17 19:10 01/16/17 05:58 Stool Occult Blood NEGATIVE White Blood Count 8.4 Red Blood Count 2.86 L Hemoglobin 8.6 L Hematocrit 26.4 L Mean Corpuscular Volume 92.3 Mean Corpuscular Hemoglobin 30.1 Mean Corpuscular Hemoglobin Concent 32.6 Red Cell Distribution Width 17.5 H Platelet Count 268 Mean Platelet Volume 10.8 H Neutrophils % 70.6 Lymphocytes % 12.3 L Monocytes % 6.3 Eosinophils % 9.2 H Basophils % 0.8 Nucleated Red Blood Cells % 0.0 Neutrophils # (Manual) 6 Lymphocytes # 1.0 Monocytes # 0.5 Eosinophils # 0.8 H Basophils # 0.1 Nucleated Red Blood Cells # 0.0 Sodium Level 137 Potassium Level 3.8 Chloride Level 88 L Carbon Dioxide Level 39 H Anion Gap 14 Blood Urea Nitrogen 18 Creatinine 0.44 L Glucose Level 114 Calcium Level 8.7 Medications Medications Current Medications Quetiapine Fumarate 25 mg 25 mg Q6 PRN PO AGITATION/ANXIETY Last administered on 01/15/17 22:47; Admin Dose 25 MG; Start 01/09/17 at 21:30 Cefepime HCl (Maxipime 1gm/50 ml (Pmx)) 50 ml @ 100 mls/hr Q12 IVPB Last administered on 01/16/17 09:19; Admin Dose 100 MLS/HR; Start 01/10/17 at 09:00 Ondansetron HCl (Zofran Inj) 4 mg Q6H PRN IV NAUSEA AND/OR VOMITING; Start at 22:00 Acetaminophen (Tylenol Tab) 650 mg Q6H PRN PO PAIN LEVEL 1-3 OR FEVER Last administered on 01/10/17 15:46; Admin Dose 650 MG; Start 01/09/17 at 22:00 Morphine Sulfate (morphine) 2 mg Q4H PRN IV PAIN LEVEL 7-10 Last administered on 01/13/17 00:00; Admin Dose 2 MG; Start 01/09/17 at 22:00 Clonidine (Catapres) 0.1 mg Q6 GTB Last administered on 01/15/17 18:01; Admin Dose 0.1 MG; Start 01/10/17 at 18:00 Diphenhydramine HCl (Benadryl) 25 mg Q6H PRN GTB ITCHING Last administered on 18:39; Admin Dose 25 MG; Start 01/10/17 at 17:00 Folic Acid (Folic Acid) 1 mg DAILY GTB Last administered on 01/16/17 09:18; Admin Dose 1 MG; Start 01/11/17 at 09:00 Acetaminophen/ Hydrocodone Bitart ([place] (5/325)) 1 tab Q4H PRN GTB PAIN LEVEL 4-10/10 Last administered on 01/16/17 09:18; Admin Dose 1 TAB; Start 01/10/17 at 17:00 Lactobacillus Acidophilus (Florajen3 Capsule) 3 each TID PEG Last administered on 01/16/17 13:21; Admin Dose 3 EACH; Start 01/10/17 at 21:00 Lansoprazole (Prevacid) 30 mg DAILY GTB Last administered on 01/16/17 09:19; Admin Dose 30 MG; Start 01/11/17 at 09:00 Metoprolol Tartrate (Lopressor) 50 mg BID GTB Last administered on 01/16/17 09 :18; Admin Dose 50 MG; Start 01/10/17 at 21:00 Oxcarbazepine (Trileptal) 300 mg BID GTB Last administered on 01/16/17 09:18; Admin Dose 300 MG; Start 01/10/17 at 21:00 Metoprolol Tartrate (Lopressor) 5 mg Q4 PRN IV NOTE; Start 01/10/17 at 17:00 Ascorbic Acid (Vitamin C) 500 mg DAILY GTB Last administered on 01/16/17 09:19 ; Admin Dose 500 MG; Start 01/11/17 at 09:00 Diphenhydramine HCl (Benadryl) 25 mg Q6H PRN IV Agitation Last administered on 01/13/17 17:04; Admin Dose 25 MG; Start 01/10/17 at 17:30 Multivitamins 30 ml 30 ml DAILY GTB Last administered on 01/16/17 09:17; Admin Dose 30 ML; Start 01/11/17 at 09:00 Sodium Chloride (NS) 1,000 ml @ 30 mls/hr Q24H IV Last administered on 14:51; Admin Dose 30 MLS/HR; Start 01/10/17 at 18:30 Acetaminophen (Tylenol Liquid) 650 mg Q6H PRN GTB FOR FEVER T>101 Last administered on 01/16/17 14:51; Admin Dose 650 MG; Start 01/10/17 at 18:30 Haloperidol (Haldol) 10 mg Q6 PRN IM Agitation Last administered on 01/13/17 09:29; Admin Dose 10 MG; Start 01/12/17 at 16:30 MARIO LAND Jan 16, 2017 15:16
--- NOTE | 2017-01-16 16:15 | CONS ---
[facility] Patient Name: Kevin Brooks Unit Number: [id number] Date of : 1945 Patient Status: Admitted Inpatient Attending Doctor: Matthew Calderon MD Edit: MADISON CHILDERS M.D. on 01/17/17 @ 17:20 Liseth attestation: I discussed the management with CARSON Brand and agree with her note. Date/Time of Note Date/Time of Note DATE: 01/16/17 TIME: 15:56 Consult Date/Type/Reason Admit Date/Time Jan 09, 2017 at 18:37 Initial Consult Date 01/10/17 Type of Consultation: Infectious Disease Ordering Provider: MATTHEW CALDERON MD Subjective no problem per spouse who is at the bedside Objective Vital Signs Date Time Temp Pulse Resp B/P Pulse Ox O2 Delivery O2 Flow Rate FiO2 01/16/17 15:49 97.9 90 22 96/63 100 01/16/17 11:20 45 01/12/17 18:47 Mechanical Ventilator Intake and Output 01/15/17 01/15/17 01/16/17 15:00 23:00 07:00 Intake Total 100 ml 1550 ml 1550 ml Output Total 1500 ml 1350 ml Balance 100 ml 50 ml 200 ml Exam Constitutional: frail, male lying in bed, tracheostomy and ventilator supported Head: normocephalic Eyes: normal conjunctiva and lids ENMT: normal external ears & nose, normal nasal mucosa & septum Neck: tracheostomy in place Respiratory: scattered rhonchi, ventilator supported Cardiovascular: normal pulses, regular rate and rhythm Gastrointestinal: soft, non-tender, non-distended, GT in place, TF infusing Genita-urinary: pickens catheter in place Musculoskeletal: normal extremities on inspection Extremities: warm, dry, palpable pulses, no edema Neurological: awake and alert, able to squeeze fingers on command Skin: warm, dry, mild erythema of the face Results/Medications Result Diagram: 01/16/17 0558 01/16/1758 Results 24 hrs Laboratory Tests Test 01/15/17 19:10 01/16/17 05:58 Stool Occult Blood NEGATIVE White Blood Count 8.4 Red Blood Count 2.86 L Hemoglobin 8.6 L Hematocrit 26.4 L Mean Corpuscular Volume 92.3 Mean Corpuscular Hemoglobin 30.1 Mean Corpuscular Hemoglobin Concent 32.6 Red Cell Distribution Width 17.5 H Platelet Count 268 Mean Platelet Volume 10.8 H Neutrophils % 70.6 Lymphocytes % 12.3 L Monocytes % 6.3 Eosinophils % 9.2 H Basophils % 0.8 Nucleated Red Blood Cells % 0.0 Neutrophils # (Manual) 6 Lymphocytes # 1.0 Monocytes # 0.5 Eosinophils # 0.8 H Basophils # 0.1 Nucleated Red Blood Cells # 0.0 Sodium Level 137 Potassium Level 3.8 Chloride Level 88 L Carbon Dioxide Level 39 H Anion Gap 14 Blood Urea Nitrogen 18 Creatinine 0.44 L Glucose Level 114 Calcium Level 8.7 Medications Current Medications Quetiapine Fumarate 25 mg 25 mg Q6 PRN PO AGITATION/ANXIETY Last administered on 01/15/17 22:47; Admin Dose 25 MG; Start 01/09/17 at 21:30 Cefepime HCl (Maxipime 1gm/50 ml (Pmx)) 50 ml @ 100 mls/hr Q12 IVPB Last administered on 01/16/17 09:19; Admin Dose 100 MLS/HR; Start 01/10/17 at 09:00 Ondansetron HCl (Zofran Inj) 4 mg Q6H PRN IV NAUSEA AND/OR VOMITING; Start at 22:00 Acetaminophen (Tylenol Tab) 650 mg Q6H PRN PO PAIN LEVEL 1-3 OR FEVER Last administered on 01/10/17 15:46; Admin Dose 650 MG; Start 01/09/17 at 22:00 Morphine Sulfate (morphine) 2 mg Q4H PRN IV PAIN LEVEL 7-10 Last administered on 01/13/17 00:00; Admin Dose 2 MG; Start 01/09/17 at 22:00 Clonidine (Catapres) 0.1 mg Q6 GTB Last administered on 01/15/17 18:01; Admin Dose 0.1 MG; Start 01/10/17 at 18:00 Diphenhydramine HCl (Benadryl) 25 mg Q6H PRN GTB ITCHING Last administered on 18:39; Admin Dose 25 MG; Start 01/10/17 at 17:00 Folic Acid (Folic Acid) 1 mg DAILY GTB Last administered on 01/16/17 09:18; Admin Dose 1 MG; Start 01/11/17 at 09:00 Acetaminophen/ Hydrocodone Bitart ([place] (5/325)) 1 tab Q4H PRN GTB PAIN LEVEL 4-10/10 Last administered on 01/16/17 09:18; Admin Dose 1 TAB; Start 01/10/17 at 17:00 Lactobacillus Acidophilus (Florajen3 Capsule) 3 each TID PEG Last administered on 01/16/17 13:21; Admin Dose 3 EACH; Start 01/10/17 at 21:00 Lansoprazole (Prevacid) 30 mg DAILY GTB Last administered on 01/16/17 09:19; Admin Dose 30 MG; Start 01/11/17 at 09:00 Metoprolol Tartrate (Lopressor) 50 mg BID GTB Last administered on 01/16/17 09 :18; Admin Dose 50 MG; Start 01/10/17 at 21:00 Oxcarbazepine (Trileptal) 300 mg BID GTB Last administered on 01/16/17 09:18; Admin Dose 300 MG; Start 01/10/17 at 21:00 Metoprolol Tartrate (Lopressor) 5 mg Q4 PRN IV NOTE; Start 01/10/17 at 17:00 Ascorbic Acid (Vitamin C) 500 mg DAILY GTB Last administered on 01/16/17 09:19 ; Admin Dose 500 MG; Start 01/11/17 at 09:00 Diphenhydramine HCl (Benadryl) 25 mg Q6H PRN IV Agitation Last administered on 01/13/17 17:04; Admin Dose 25 MG; Start 01/10/17 at 17:30 Multivitamins 30 ml 30 ml DAILY GTB Last administered on 01/16/17 09:17; Admin Dose 30 ML; Start 01/11/17 at 09:00 Sodium Chloride (NS) 1,000 ml @ 30 mls/hr Q24H IV Last administered on 14:51; Admin Dose 30 MLS/HR; Start 01/10/17 at 18:30 Acetaminophen (Tylenol Liquid) 650 mg Q6H PRN GTB FOR FEVER T>101 Last administered on 01/16/17 14:51; Admin Dose 650 MG; Start 01/10/17 at 18:30 Haloperidol (Haldol) 10 mg Q6 PRN IM Agitation Last administered on 01/13/17 09:29; Admin Dose 10 MG; Start 01/12/17 at 16:30 Assessment/Plan Chief Complaint/Hosp Course assessment/impression - sepsis vs. SIRS from adverse reaction to lorazepam at [facility] prior to transfer here - mental status change after lorazepam - s/p recurrent sepsis due to HCAP and UTI - h/o HCAP due to MDR acinetobacter and ESBL E. 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 Coli - h/o funguria - h/o thrush - h/o bacteremia 10/28/2016 due to enterococcus faecium. Midline was dc'd - h/o bacteremia 12/21/2016 due to enterococcus faecalis - s/p severe sepsis due to UTI, prob aspiration after hematemesis and multiple intubation events, and HCAP - s/p acute UGIB of unclear etiology; s/p EGD 10/01/2016 showing no active bleeding site - HLD and fatty liver - h/o alcoholism - chronic diastolic HF - diverticulosis, seen on CT at [facility] - severe protein calorie malnutrition - h/o fall and trauma to R foot Recommendations: - continue cefepime (01/10/2017-), recommending 7 days. Pt's colonized with multiple bacteria, and it is impossible to cover all bacteria. Pt's condition improved and his WBC level has remained stable. Therefore recommending continuation of current antibiotic regimen. Care and management d/w nurse Latisha and DR. Childers Problems: SIS BRAND Jan 16, 2017 16:06
[2017-01-16] MEDS: QUETIAPINE 25 MG TAB PO PRN (20:53)
[2017-01-16] MEDS: DIPHENHYDRAMINE 25 MG CAP GTB PRN (20:54)
[2017-01-16] MEDS: HALOPERIDOL 5 MG INJ IM PRN (22:38)
[2017-01-17] VITALS (25 sets, daily range): BP systolic 92–130; BP diastolic 58–70; PULSE 77–105; RESP 18–34
[2017-01-17] MEDS: ALBUTEROL 18 GM INHALER INH SCH ×6 (01:41→20:26)
[2017-01-17] MEDS: IPRATROPIUM (HFA) 12.9 GM INHALER INH SCH ×6 (01:42→20:26)
[2017-01-17 07:32] LABS: BASOPHIL # 0.1 10^3/ul (0.0-0.1); BASOPHILS % 0.8 % (0.0-2.0); EOSINOPHILS % 11.2 % (0.0-7.0); HEMATOCRIT 27.1 % (42.0-52.0); HEMOGLOBIN 8.7 g/dl (14.0-18.0); LYMPHOCYTES # 0.9 10^3/ul (0.8-2.9); MEAN CORPUSCULAR HEMOGLOBIN 29.6 pg (29.0-33.0); MEAN CORPUSCULAR HGB CONC 32.1 g/dl (32.0-37.0); MEAN CORPUSCULAR VOLUME 92.2 fl (82.0-101.0); MEAN PLATELET VOLUME 10.8 fl (7.4-10.4); MONOCYTE # 0.6 10^3/ul (0.3-0.9); MONOCYTES % 6.2 % (0.0-11.0); NEUTROPHILS % 71.1 % (39.0-77.0); PLATELET COUNT 290 10^3/UL (140-415); RED BLOOD COUNT 2.94 10^6/ul (4.70-6.10); RED CELL DISTRIBUTION WIDTH 17.4 % (11.5-14.5); WHITE BLOOD COUNT 8.9 10^3/ul (4.8-10.8)
[2017-01-17] MEDS: MULTIVITAMINS 30 ML CUP GTB SCH (09:39)
[2017-01-17] MEDS: LANSOPRAZOLE 30 MG CAP GTB SCH (09:39)
[2017-01-17] MEDS: L ACIDOPHIL/B LACTIS/B LONGUM CAPSULE PEG SCH ×3 (09:39→20:24)
[2017-01-17] MEDS: FOLIC ACID 1 MG TAB GTB SCH (09:40)
[2017-01-17] MEDS: HYDROCODONE/APAP (5/325) TAB GTB PRN ×2 (09:40→18:49)
[2017-01-17] MEDS: QUETIAPINE 25 MG TAB PO PRN (09:40)
[2017-01-17] MEDS: ASCORBIC ACID 500 MG TAB GTB SCH (09:40)
[2017-01-17] MEDS: METOPROLOL 50 MG TAB GTB SCH ×2 (09:40→20:24)
[2017-01-17] MEDS: OXCARBAZEPINE 300 MG TAB GTB SCH ×2 (09:40→20:24)
[2017-01-17] MEDS: CEFEPIME 1GM/50 ML (PMX) 50 ML IVPB SCH (09:41)
[2017-01-17 10:25] LABS: CALCIUM 8.8 mg/dl (8.4-10.2); CREATININE 0.51 mg/dl (0.61-1.24); POTASSIUM 4.1 mmol/L (3.5-5.1)
--- NOTE | 2017-01-17 11:28 | CONS ---
Date/Time of Note Date/Time of Note DATE: 01/17/17 TIME: 11:26 Assessment/Plan Assessment/Plan Chief Complaint/Hosp Course IMP: 1.Diastolic CHF 2.HTN 3.Resp failure-chronic s/p trach 4.Pulmonary fibrosis 5. PNA 6.UTI Recc: -Tele -Continue BB as tolerated -Continue abx's and bronchodilators -Follow volume status closely Problems: Consultation Date/Type/Reason Admit Date/Time Jan 09, 2017 at 18:37 Initial Consult Date 01/10/17 Type of Consultation: cardiology Reason for Consultation tachycardia Referring Provider: MATTHEW CALDERON MD Exam/Review of Systems Vital Signs Vitals Vital Signs Date Time Temp Pulse Resp B/P Pulse Ox O2 Delivery O2 Flow Rate FiO2 01/17/17 11:22 98.9 85 19 92/59 97 01/17/17 05:47 45 Intake and Output 01/16/17 01/16/17 01/17/17 15:00 23:00 07:00 Intake Total 1140 ml 650 ml Output Total 600 ml 650 ml Balance 540 ml 0 ml Exam Review of Systems: CONSTITUTIONAL: No fevers, chills. PULMONARY: No sob CARDIOVASCULAR: No chest pain/palpitations GASTROINTESTINAL: No nausea/vomiting. GENITOURINARY: No hematuria/dysuria. MUSCULOSKELETAL: No myagias/arthalgias. PSYCHIATRIC: The patient denies depression. NEUROLOGIC: No weakness Constitutional: alert Psych: no complaints Head: normocephalic ENMT: mucosa pink and moist Neck: jvd (8 cm water), other (trach in place), supple Respiratory: diminished breath sounds (at bases/B) Cardiovascular: regular rate and rhythm Gastrointestinal: non-tender, soft Musculoskeletal: muscle tone (normal) Extremities: edema (nonw) Neurological: other (No focal deficits) Results Result Diagram: 01/17/17 0636 01/17/17 0636 Results 24 hrs Laboratory Tests Test 01/17/17 06:36 White Blood Count 8.9 Red Blood Count 2.94 L Hemoglobin 8.7 L Hematocrit 27.1 L Mean Corpuscular Volume 92.2 Mean Corpuscular Hemoglobin 29.6 Mean Corpuscular Hemoglobin Concent 32.1 Red Cell Distribution Width 17.4 H Platelet Count 290 Mean Platelet Volume 10.8 H Neutrophils % 71.1 Lymphocytes % 10.0 L Monocytes % 6.2 Eosinophils % 11.2 H Basophils % 0.8 Nucleated Red Blood Cells % 0.0 Neutrophils # (Manual) 6 Lymphocytes # 0.9 Monocytes # 0.6 Eosinophils # 1.0 H Basophils # 0.1 Nucleated Red Blood Cells # 0.0 Sodium Level 134 L Potassium Level 4.1 Chloride Level 92 L Carbon Dioxide Level 36 H Anion Gap 10 Blood Urea Nitrogen 20 Creatinine 0.51 L Glucose Level 113 Calcium Level 8.8 Medications Medications Current Medications Quetiapine Fumarate 25 mg 25 mg Q6 PRN PO AGITATION/ANXIETY Last administered on 01/17/17 09:40; Admin Dose 25 MG; Start 01/09/17 at 21:30 Cefepime HCl (Maxipime 1gm/50 ml (Pmx)) 50 ml @ 100 mls/hr Q12 IVPB Last administered on 01/17/17 09:41; Admin Dose 100 MLS/HR; Start 01/10/17 at 09:00 Ondansetron HCl (Zofran Inj) 4 mg Q6H PRN IV NAUSEA AND/OR VOMITING; Start at 22:00 Acetaminophen (Tylenol Tab) 650 mg Q6H PRN PO PAIN LEVEL 1-3 OR FEVER Last administered on 01/10/17 15:46; Admin Dose 650 MG; Start 01/09/17 at 22:00 Morphine Sulfate (morphine) 2 mg Q4H PRN IV PAIN LEVEL 7-10 Last administered on 01/13/17 00:00; Admin Dose 2 MG; Start 01/09/17 at 22:00 Clonidine (Catapres) 0.1 mg Q6 GTB Last administered on 01/15/17 18:01; Admin Dose 0.1 MG; Start 01/10/17 at 18:00 Diphenhydramine HCl (Benadryl) 25 mg Q6H PRN GTB ITCHING Last administered on 20:54; Admin Dose 25 MG; Start 01/10/17 at 17:00 Folic Acid (Folic Acid) 1 mg DAILY GTB Last administered on 01/17/17 09:40; Admin Dose 1 MG; Start 01/11/17 at 09:00 Acetaminophen/ Hydrocodone Bitart ([place] (5/325)) 1 tab Q4H PRN GTB PAIN LEVEL 4-10/10 Last administered on 01/17/17 09:40; Admin Dose 1 TAB; Start 01/10/17 at 17:00 Lactobacillus Acidophilus (Florajen3 Capsule) 3 each TID PEG Last administered on 01/17/17 09:39; Admin Dose 3 EACH; Start 01/10/17 at 21:00 Lansoprazole (Prevacid) 30 mg DAILY GTB Last administered on 01/17/17 09:39; Admin Dose 30 MG; Start 01/11/17 at 09:00 Metoprolol Tartrate (Lopressor) 50 mg BID GTB Last administered on 01/17/17 09 :40; Admin Dose 50 MG; Start 01/10/17 at 21:00 Oxcarbazepine (Trileptal) 300 mg BID GTB Last administered on 01/17/17 09:40; Admin Dose 300 MG; Start 01/10/17 at 21:00 Metoprolol Tartrate (Lopressor) 5 mg Q4 PRN IV NOTE; Start 01/10/17 at 17:00 Ascorbic Acid (Vitamin C) 500 mg DAILY GTB Last administered on 01/17/17 09:40 ; Admin Dose 500 MG; Start 01/11/17 at 09:00 Diphenhydramine HCl (Benadryl) 25 mg Q6H PRN IV Agitation Last administered on 01/13/17 17:04; Admin Dose 25 MG; Start 01/10/17 at 17:30 Multivitamins 30 ml 30 ml DAILY GTB Last administered on 01/17/17 09:39; Admin Dose 30 ML; Start 01/11/17 at 09:00 Sodium Chloride (NS) 1,000 ml @ 30 mls/hr Q24H IV Last administered on 14:51; Admin Dose 30 MLS/HR; Start 01/10/17 at 18:30 Acetaminophen (Tylenol Liquid) 650 mg Q6H PRN GTB FOR FEVER T>101 Last administered on 01/16/17 21:01; Admin Dose 650 MG; Start 01/10/17 at 18:30 Haloperidol (Haldol) 10 mg Q6 PRN IM Agitation Last administered on 01/16/17 22:38; Admin Dose 10 MG; Start 01/12/17 at 16:30 CLOVIS LEON Jan 17, 2017 11:28
--- NOTE | 2017-01-17 12:05 | CONS ---
Date/Time of Note Date/Time of Note DATE: 01/17/17 TIME: 12:03 Assessment/Plan Assessment/Plan Additional Assessment/Plan Ventilator setting; AC of 20, tidal volume 500, PEEP of 5, 45% FiO2. Assessment and recommendations; 1. Patient with a history of chronic respiratory failure which is ventilator dependent admitted for pneumonia with significant interval improvement. 2. Severe end-stage pulmonary fibrosis. Continue current treatment. Consultation Date/Type/Reason Admit Date/Time Jan 09, 2017 at 18:37 Initial Consult Date 01/10/17 Type of Consultation: Pulmonary Referring Provider: MATTHEW CALDERON MD 24 HR Interval Summary Free Text/Dictation Patient condition remains stable. Remains completely awake and alert. Has remained hemodynamically stable. General exam; elderly male, on ventilator via tracheostomy, currently in no distress. Exam/Review of Systems Vital Signs Vitals Vital Signs Date Time Temp Pulse Resp B/P Pulse Ox O2 Delivery O2 Flow Rate FiO2 01/17/17 11:22 98.9 85 19 92/59 97 01/17/17 05:47 45 Intake and Output 01/16/17 01/16/17 01/17/17 15:00 23:00 07:00 Intake Total 1140 ml 650 ml Output Total 600 ml 650 ml Balance 540 ml 0 ml Exam HEENT exam; supple neck, no JVD. No lymphadenopathy. Midline trachea. No thyromegaly. Tracheostomy in place. Patient is edentulous. Pupils are small bilaterally. Chest exam; bilateral crackles. S1-S2 audible, no murmurs. Regular rhythm. Abdomen exam; soft, no organomegaly. Nontender. G-tube in place. Bowel sounds audible. Extremity exam; no peripheral edema. Pulses 1+ bilaterally. TWIST PACKER exam; no focal deficit. Results Result Diagram: 01/17/17 0636 01/17/17 0636 Results 24 hrs Laboratory Tests Test 01/17/17 06:36 White Blood Count 8.9 Red Blood Count 2.94 L Hemoglobin 8.7 L Hematocrit 27.1 L Mean Corpuscular Volume 92.2 Mean Corpuscular Hemoglobin 29.6 Mean Corpuscular Hemoglobin Concent 32.1 Red Cell Distribution Width 17.4 H Platelet Count 290 Mean Platelet Volume 10.8 H Neutrophils % 71.1 Lymphocytes % 10.0 L Monocytes % 6.2 Eosinophils % 11.2 H Basophils % 0.8 Nucleated Red Blood Cells % 0.0 Neutrophils # (Manual) 6 Lymphocytes # 0.9 Monocytes # 0.6 Eosinophils # 1.0 H Basophils # 0.1 Nucleated Red Blood Cells # 0.0 Sodium Level 134 L Potassium Level 4.1 Chloride Level 92 L Carbon Dioxide Level 36 H Anion Gap 10 Blood Urea Nitrogen 20 Creatinine 0.51 L Glucose Level 113 Calcium Level 8.8 Medications Medications Current Medications Quetiapine Fumarate 25 mg 25 mg Q6 PRN PO AGITATION/ANXIETY Last administered on 01/17/17 09:40; Admin Dose 25 MG; Start 01/09/17 at 21:30 Cefepime HCl (Maxipime 1gm/50 ml (Pmx)) 50 ml @ 100 mls/hr Q12 IVPB Last administered on 01/17/17 09:41; Admin Dose 100 MLS/HR; Start 01/10/17 at 09:00 Ondansetron HCl (Zofran Inj) 4 mg Q6H PRN IV NAUSEA AND/OR VOMITING; Start at 22:00 Acetaminophen (Tylenol Tab) 650 mg Q6H PRN PO PAIN LEVEL 1-3 OR FEVER Last administered on 01/10/17 15:46; Admin Dose 650 MG; Start 01/09/17 at 22:00 Morphine Sulfate (morphine) 2 mg Q4H PRN IV PAIN LEVEL 7-10 Last administered on 01/13/17 00:00; Admin Dose 2 MG; Start 01/09/17 at 22:00 Clonidine (Catapres) 0.1 mg Q6 GTB Last administered on 01/15/17 18:01; Admin Dose 0.1 MG; Start 01/10/17 at 18:00 Diphenhydramine HCl (Benadryl) 25 mg Q6H PRN GTB ITCHING Last administered on 20:54; Admin Dose 25 MG; Start 01/10/17 at 17:00 Folic Acid (Folic Acid) 1 mg DAILY GTB Last administered on 01/17/17 09:40; Admin Dose 1 MG; Start 01/11/17 at 09:00 Acetaminophen/ Hydrocodone Bitart ([place] (5/325)) 1 tab Q4H PRN GTB PAIN LEVEL 4-10/10 Last administered on 01/17/17 09:40; Admin Dose 1 TAB; Start 01/10/17 at 17:00 Lactobacillus Acidophilus (Florajen3 Capsule) 3 each TID PEG Last administered on 01/17/17 09:39; Admin Dose 3 EACH; Start 01/10/17 at 21:00 Lansoprazole (Prevacid) 30 mg DAILY GTB Last administered on 01/17/17 09:39; Admin Dose 30 MG; Start 01/11/17 at 09:00 Metoprolol Tartrate (Lopressor) 50 mg BID GTB Last administered on 01/17/17 09 :40; Admin Dose 50 MG; Start 01/10/17 at 21:00 Oxcarbazepine (Trileptal) 300 mg BID GTB Last administered on 01/17/17 09:40; Admin Dose 300 MG; Start 01/10/17 at 21:00 Metoprolol Tartrate (Lopressor) 5 mg Q4 PRN IV NOTE; Start 01/10/17 at 17:00 Ascorbic Acid (Vitamin C) 500 mg DAILY GTB Last administered on 01/17/17 09:40 ; Admin Dose 500 MG; Start 01/11/17 at 09:00 Diphenhydramine HCl (Benadryl) 25 mg Q6H PRN IV Agitation Last administered on 01/13/17 17:04; Admin Dose 25 MG; Start 01/10/17 at 17:30 Multivitamins 30 ml 30 ml DAILY GTB Last administered on 01/17/17 09:39; Admin Dose 30 ML; Start 01/11/17 at 09:00 Sodium Chloride (NS) 1,000 ml @ 30 mls/hr Q24H IV Last administered on 14:51; Admin Dose 30 MLS/HR; Start 01/10/17 at 18:30 Acetaminophen (Tylenol Liquid) 650 mg Q6H PRN GTB FOR FEVER T>101 Last administered on 01/16/17 21:01; Admin Dose 650 MG; Start 01/10/17 at 18:30 Haloperidol (Haldol) 10 mg Q6 PRN IM Agitation Last administered on 01/16/17 22:38; Admin Dose 10 MG; Start 01/12/17 at 16:30 Guaifenesin/ Codeine Phosphate (Robitussin Ac Liquid Cup) 5 ml Q4H PRN PO COUGH ; Start 01/17/17 at 12:00; Status JOSE L BLAND Jan 17, 2017 12:05
[2017-01-17] MEDS: SOD CHLORIDE 0.9% 1,000 ML IV SCH (14:30)
--- NOTE | 2017-01-17 14:48 | PN ---
Date/Time of Note Date/Time of Note DATE: 01/17/17 TIME: 14:42 Assessment/Plan VTE Prophylaxis VTE Prophylaxis Intervention: other Lines/Catheters IV Catheter Type (from Nrs): Peripheral IV Urinary Cath still in place: Yes Reason Cath still needed: urinary retention Assessment/Plan Assessment/Plan - Possible recurrent sepsis. Dr. Laguerre is following infection disease consultation. Continue antibiotics per ID. - Pulmonary fibrosis. - Ventilatory dependent respiratory failure with tracheostomy 10/09/2016 Dr. Souza is following in pulmonology consultation. - Chronic diastolic congestive heart failure. - Dysphagia with PEG. - Multi drug allergy - dysphagia s/p PEG placement 10/09/2016 - erythroderma of unclear etiology in 11/2016, resolved - Anemia, stool for OB is negative, continue to monitor H&H. - diverticulosis, seen on CT at [facility] - severe protein calorie malnutrition- dietary consult - h/o fall and trauma to R foot -- h/o CARLOS - h/o recurrent UTI due to ESBL E. Coli - HLD and fatty liver - h/o alcoholism Further recommendations based on clinical course. Plan of care discussed with Dr. Austin Subjective 24 Hr Interval Summary Free Text/Dictation afebrile, trach intact, increased secretions seems comfortable, dw staff. Subjective hx not possible: pt non-verbal Constitutional: requiring IVF Exam/Review of Systems Vital Signs Vitals Vital Signs Date Time Temp Pulse Resp B/P Pulse Ox O2 Delivery O2 Flow Rate FiO2 01/17/17 12:12 82 01/17/17 11:22 98.9 19 92/59 97 01/17/17 05:47 45 Intake and Output 01/16/17 01/16/17 01/17/17 15:00 23:00 07:00 Intake Total 1140 ml 650 ml Output Total 600 ml 650 ml Balance 540 ml 0 ml Exam Constitutional: non-verbal Neck: other (trach intact) Respiratory: diminished breath sounds Cardiovascular: nl pulses, regular rate and rhythm Gastrointestinal: non-tender, other (GT intact), soft Musculoskeletal: nl extremities to inspection Results Result Diagram: 01/17/17 0636 01/17/17 0636 Results 24 hrs Laboratory Tests Test 01/17/17 06:36 White Blood Count 8.9 Red Blood Count 2.94 L Hemoglobin 8.7 L Hematocrit 27.1 L Mean Corpuscular Volume 92.2 Mean Corpuscular Hemoglobin 29.6 Mean Corpuscular Hemoglobin Concent 32.1 Red Cell Distribution Width 17.4 H Platelet Count 290 Mean Platelet Volume 10.8 H Neutrophils % 71.1 Lymphocytes % 10.0 L Monocytes % 6.2 Eosinophils % 11.2 H Basophils % 0.8 Nucleated Red Blood Cells % 0.0 Neutrophils # (Manual) 6 Lymphocytes # 0.9 Monocytes # 0.6 Eosinophils # 1.0 H Basophils # 0.1 Nucleated Red Blood Cells # 0.0 Sodium Level 134 L Potassium Level 4.1 Chloride Level 92 L Carbon Dioxide Level 36 H Anion Gap 10 Blood Urea Nitrogen 20 Creatinine 0.51 L Glucose Level 113 Calcium Level 8.8 Medications Medications Current Medications Quetiapine Fumarate 25 mg 25 mg Q6 PRN PO AGITATION/ANXIETY Last administered on 01/17/17 09:40; Admin Dose 25 MG; Start 01/09/17 at 21:30 Cefepime HCl (Maxipime 1gm/50 ml (Pmx)) 50 ml @ 100 mls/hr Q12 IVPB Last administered on 01/17/17 09:41; Admin Dose 100 MLS/HR; Start 01/10/17 at 09:00 Ondansetron HCl (Zofran Inj) 4 mg Q6H PRN IV NAUSEA AND/OR VOMITING; Start at 22:00 Acetaminophen (Tylenol Tab) 650 mg Q6H PRN PO PAIN LEVEL 1-3 OR FEVER Last administered on 01/10/17 15:46; Admin Dose 650 MG; Start 01/09/17 at 22:00 Morphine Sulfate (morphine) 2 mg Q4H PRN IV PAIN LEVEL 7-10 Last administered on 01/13/17 00:00; Admin Dose 2 MG; Start 01/09/17 at 22:00 Clonidine (Catapres) 0.1 mg Q6 GTB Last administered on 01/15/17 18:01; Admin Dose 0.1 MG; Start 01/10/17 at 18:00 Diphenhydramine HCl (Benadryl) 25 mg Q6H PRN GTB ITCHING Last administered on 20:54; Admin Dose 25 MG; Start 01/10/17 at 17:00 Folic Acid (Folic Acid) 1 mg DAILY GTB Last administered on 01/17/17 09:40; Admin Dose 1 MG; Start 01/11/17 at 09:00 Acetaminophen/ Hydrocodone Bitart ([place] (5/325)) 1 tab Q4H PRN GTB PAIN LEVEL 4-10/10 Last administered on 01/17/17 09:40; Admin Dose 1 TAB; Start 01/10/17 at 17:00 Lactobacillus Acidophilus (Florajen3 Capsule) 3 each TID PEG Last administered on 01/17/17 13:31; Admin Dose 3 EACH; Start 01/10/17 at 21:00 Lansoprazole (Prevacid) 30 mg DAILY GTB Last administered on 01/17/17 09:39; Admin Dose 30 MG; Start 01/11/17 at 09:00 Metoprolol Tartrate (Lopressor) 50 mg BID GTB Last administered on 01/17/17 09 :40; Admin Dose 50 MG; Start 01/10/17 at 21:00 Oxcarbazepine (Trileptal) 300 mg BID GTB Last administered on 01/17/17 09:40; Admin Dose 300 MG; Start 01/10/17 at 21:00 Metoprolol Tartrate (Lopressor) 5 mg Q4 PRN IV NOTE; Start 01/10/17 at 17:00 Ascorbic Acid (Vitamin C) 500 mg DAILY GTB Last administered on 01/17/17 09:40 ; Admin Dose 500 MG; Start 01/11/17 at 09:00 Diphenhydramine HCl (Benadryl) 25 mg Q6H PRN IV Agitation Last administered on 01/13/17 17:04; Admin Dose 25 MG; Start 01/10/17 at 17:30 Multivitamins 30 ml 30 ml DAILY GTB Last administered on 01/17/17 09:39; Admin Dose 30 ML; Start 01/11/17 at 09:00 Sodium Chloride (NS) 1,000 ml @ 30 mls/hr Q24H IV Last administered on 14:51; Admin Dose 30 MLS/HR; Start 01/10/17 at 18:30 Acetaminophen (Tylenol Liquid) 650 mg Q6H PRN GTB FOR FEVER T>101 Last administered on 01/16/17 21:01; Admin Dose 650 MG; Start 01/10/17 at 18:30 Haloperidol (Haldol) 10 mg Q6 PRN IM Agitation Last administered on 01/16/17t 22:38; Admin Dose 10 MG; Start 01/12/17 at 16:30 Guaifenesin/ Codeine Phosphate (Robitussin Ac Liquid Cup) 5 ml Q4H PRN PO COUGH ; Start 01/17/17 at 12:00 CHARITY DUKE Jan 17, 2017 14:47
[2017-01-17] MEDS: GUAIFENESIN/CODEINE 5ML CUP PO PRN ×3 (16:36→23:51)
--- NOTE | 2017-01-17 17:42 | CONS ---
Date/Time of Note Date/Time of Note DATE: 01/17/17 TIME: 17:39 Assessment/Plan Assessment/Plan Chief Complaint/Hosp Course assessment/impression - sepsis vs. 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 Coli - dysphagia s/p PEG placement 10/09/2016 - erythroderma of unclear etiology in 11/2016, resolved - h/o CARLOS - h/o recurrent UTI due to ESBL E. Coli - h/o funguria - h/o thrush - h/o bacteremia 10/28/2016 due to enterococcus faecium. Midline was dc'd - h/o bacteremia 12/21/2016 due to enterococcus faecalis - s/p severe sepsis due to UTI, prob aspiration after hematemesis and multiple intubation events, and HCAP - s/p acute UGIB of unclear etiology; s/p EGD 10/01/2016 showing no active bleeding site - HLD and fatty liver - h/o alcoholism - chronic diastolic HF - diverticulosis, seen on CT at [facility] - severe protein calorie malnutrition - h/o fall and trauma to R foot recommendations: - I recommend increasing the dose of (01/10/2017-), I recommend extending it to 10-14 days - start nebulized tobramycin (01/17/2017-), ordered for 10 days Pt's colonized with multiple bacteria, and it is impossible to cover all bacteria - start 7 day course of pGT acyclovir for labial herpes infection (01/17/2017-) management d/w Pt's management d/w Pt's Problems: Consultation Date/Type/Reason Admit Date/Time Jan 09, 2017 at 18:37 Initial Consult Date 01/10/17 Type of Consultation: ID Referring Provider: MATTHEW CALDERON MD 24 HR Interval Summary Subjective hx not possible: pt non-verbal Exam/Review of Systems Vital Signs Vitals Vital Signs Date Time Temp Pulse Resp B/P Pulse Ox O2 Delivery O2 Flow Rate FiO2 01/17/17 17:24 96 26 97 45 01/17/17 15:57 98.9 130/66 Intake and Output 01/16/17 01/16/17 01/17/17 15:00 23:00 07:00 Intake Total 1140 ml 650 ml Output Total 600 ml 650 ml Balance 540 ml 0 ml Exam Constitutional: frail, non-verbal Psych: confusion Head: normocephalic, other (temporal wasting b/l) Eyes: nl conjunctiva, nl lids ENMT: other (ulcer and bleeding on the lower lip) Neck: other (trach) Respiratory: crackles/rales Cardiovascular: nl pulses, regular rate and rhythm Gastrointestinal: non-tender, other (GT), soft Musculoskeletal: nl extremities to inspection Extremities: No edema Neurological: confused, lethargic Skin: nl turgor, No rash or lesions Results Result Diagram: 01/17/17 0636 01/17/17 0636 Results 24 hrs Laboratory Tests Test 01/17/17 06:36 White Blood Count 8.9 Red Blood Count 2.94 L Hemoglobin 8.7 L Hematocrit 27.1 L Mean Corpuscular Volume 92.2 Mean Corpuscular Hemoglobin 29.6 Mean Corpuscular Hemoglobin Concent 32.1 Red Cell Distribution Width 17.4 H Platelet Count 290 Mean Platelet Volume 10.8 H Neutrophils % 71.1 Lymphocytes % 10.0 L Monocytes % 6.2 Eosinophils % 11.2 H Basophils % 0.8 Nucleated Red Blood Cells % 0.0 Neutrophils # (Manual) 6 Lymphocytes # 0.9 Monocytes # 0.6 Eosinophils # 1.0 H Basophils # 0.1 Nucleated Red Blood Cells # 0.0 Sodium Level 134 L Potassium Level 4.1 Chloride Level 92 L Carbon Dioxide Level 36 H Anion Gap 10 Blood Urea Nitrogen 20 Creatinine 0.51 L Glucose Level 113 Calcium Level 8.8 Medications Medications Current Medications Quetiapine Fumarate 25 mg 25 mg Q6 PRN PO AGITATION/ANXIETY Last administered on 01/17/17 09:40; Admin Dose 25 MG; Start 01/09/17 at 21:30 Cefepime HCl (Maxipime 1gm/50 ml (Pmx)) 50 ml @ 100 mls/hr Q12 IVPB Last administered on 01/17/17 09:41; Admin Dose 100 MLS/HR; Start 01/10/17 at 09:00 Ondansetron HCl (Zofran Inj) 4 mg Q6H PRN IV NAUSEA AND/OR VOMITING; Start at 22:00 Acetaminophen (Tylenol Tab) 650 mg Q6H PRN PO PAIN LEVEL 1-3 OR FEVER Last administered on 01/10/17 15:46; Admin Dose 650 MG; Start 01/09/17 at 22:00 Morphine Sulfate (morphine) 2 mg Q4H PRN IV PAIN LEVEL 7-10 Last administered on 01/13/17 00:00; Admin Dose 2 MG; Start 01/09/17 at 22:00 Clonidine (Catapres) 0.1 mg Q6 GTB Last administered on 01/15/17 18:01; Admin Dose 0.1 MG; Start 01/10/17 at 18:00 Diphenhydramine HCl (Benadryl) 25 mg Q6H PRN GTB ITCHING Last administered on 20:54; Admin Dose 25 MG; Start 01/10/17 at 17:00 Folic Acid (Folic Acid) 1 mg DAILY GTB Last administered on 01/17/17 09:40; Admin Dose 1 MG; Start 01/11/17 at 09:00 Acetaminophen/ Hydrocodone Bitart ([place] (5/325)) 1 tab Q4H PRN GTB PAIN LEVEL 4-10/10 Last administered on 01/17/17 09:40; Admin Dose 1 TAB; Start 01/10/17 at 17:00 Lactobacillus Acidophilus (Florajen3 Capsule) 3 each TID PEG Last administered on 01/17/17 13:31; Admin Dose 3 EACH; Start 01/10/17 at 21:00 Lansoprazole (Prevacid) 30 mg DAILY GTB Last administered on 01/17/17 09:39; Admin Dose 30 MG; Start 01/11/17 at 09:00 Metoprolol Tartrate (Lopressor) 50 mg BID GTB Last administered on 01/17/17 09 :40; Admin Dose 50 MG; Start 01/10/17 at 21:00 Oxcarbazepine (Trileptal) 300 mg BID GTB Last administered on 01/17/17 09:40; Admin Dose 300 MG; Start 01/10/17 at 21:00 Metoprolol Tartrate (Lopressor) 5 mg Q4 PRN IV NOTE; Start 01/10/17 at 17:00 Ascorbic Acid (Vitamin C) 500 mg DAILY GTB Last administered on 01/17/17 09:40 ; Admin Dose 500 MG; Start 01/11/17 at 09:00 Diphenhydramine HCl (Benadryl) 25 mg Q6H PRN IV Agitation Last administered on 01/13/17 17:04; Admin Dose 25 MG; Start 01/10/17 at 17:30 Multivitamins 30 ml 30 ml DAILY GTB Last administered on 01/17/17 09:39; Admin Dose 30 ML; Start 01/11/17 at 09:00 Sodium Chloride (NS) 1,000 ml @ 30 mls/hr Q24H IV Last administered on 14:51; Admin Dose 30 MLS/HR; Start 01/10/17 at 18:30 Acetaminophen (Tylenol Liquid) 650 mg Q6H PRN GTB FOR FEVER T>101 Last administered on 01/16/17 21:01; Admin Dose 650 MG; Start 01/10/17 at 18:30 Haloperidol (Haldol) 10 mg Q6 PRN IM Agitation Last administered on 01/16/17 22:38; Admin Dose 10 MG; Start 01/12/17 at 16:30 Guaifenesin/ Codeine Phosphate (Robitussin Ac Liquid Cup) 5 ml Q4H PRN PO COUGH Last administered on 01/17/17 16:36; Admin Dose 5 ML; Start 01/17/17 at 12:00 MADISON PIERRE M.D. Jan 17, 2017 17:42
[2017-01-17] MEDS: ACYCLOVIR 400 MG TAB GTB SCH ×2 (18:49→21:19)
[2017-01-17] MEDS ORDERED: TOBRAMYCIN/0.25NS 300 MG/5 ML INHAL NEB SCH (20:00)
[2017-01-17] MEDS: DIPHENHYDRAMINE 50 MG INJ IV PRN (20:22)
[2017-01-17] MEDS: CEFEPIME 2GM/50 ML (PMX) 50 ML IVPB SCH (21:19)
[2017-01-17] MEDS ORDERED: HALOPERIDOL 5 MG INJ IM PRN (22:30)
[2017-01-17] MEDS: QUETIAPINE 25 MG TAB PO SCH (23:51)
[2017-01-18] VITALS (22 sets, daily range): BP systolic 101–122; BP diastolic 56–78; PULSE 92–123; RESP 18–36
[2017-01-18] MEDS ORDERED: QUETIAPINE 25 MG TAB PO SCH
[2017-01-18] MEDS: morphine 2 MG INJ IV PRN ×3 (00:28→21:46)
[2017-01-18] MEDS: ALBUTEROL 18 GM INHALER INH SCH ×6 (01:37→20:09)
[2017-01-18] MEDS: IPRATROPIUM (HFA) 12.9 GM INHALER INH SCH ×6 (01:38→20:09)
[2017-01-18] MEDS: CEFEPIME 2GM/50 ML (PMX) 50 ML IVPB SCH ×3 (05:25→21:08)
[2017-01-18] MEDS: GUAIFENESIN/CODEINE 5ML CUP PO PRN (05:25)
[2017-01-18] MEDS: QUETIAPINE 25 MG TAB PO SCH ×3 (05:26→17:35)
[2017-01-18 07:02] LABS: BASOPHIL # 0.1 10^3/ul (0.0-0.1); BASOPHILS % 0.9 % (0.0-2.0); HEMATOCRIT 30.5 % (42.0-52.0); HEMOGLOBIN 9.5 g/dl (14.0-18.0); LYMPHOCYTES # 1.7 10^3/ul (0.8-2.9); LYMPHOCYTES % 12.3 % (15.0-51.0); MEAN CORPUSCULAR HGB CONC 31.1 g/dl (32.0-37.0); MEAN PLATELET VOLUME 10.9 fl (7.4-10.4); MONOCYTE # 0.7 10^3/ul (0.3-0.9); MONOCYTES % 4.8 % (0.0-11.0); NEUTROPHILS % 74.4 % (39.0-77.0); PLATELET COUNT 384 10^3/UL (140-415); RED BLOOD COUNT 3.28 10^6/ul (4.70-6.10); RED CELL DISTRIBUTION WIDTH 17.8 % (11.5-14.5); WHITE BLOOD COUNT 13.8 10^3/ul (4.8-10.8)
[2017-01-18 07:25] LABS: CALCIUM 9.2 mg/dl (8.4-10.2); CREATININE 0.57 mg/dl (0.61-1.24); POTASSIUM 4.4 mmol/L (3.5-5.1)
[2017-01-18] MEDS: MULTIVITAMINS 30 ML CUP GTB SCH (08:35)
[2017-01-18] MEDS: ASCORBIC ACID 500 MG TAB GTB SCH (08:35)
[2017-01-18] MEDS: FOLIC ACID 1 MG TAB GTB SCH (08:35)
[2017-01-18] MEDS: L ACIDOPHIL/B LACTIS/B LONGUM CAPSULE PEG SCH ×3 (08:35→21:06)
[2017-01-18] MEDS: LANSOPRAZOLE 30 MG CAP GTB SCH (08:35)
[2017-01-18] MEDS: OXCARBAZEPINE 300 MG TAB GTB SCH ×2 (08:35→21:06)
[2017-01-18] MEDS: METOPROLOL 50 MG TAB GTB SCH ×2 (08:36→21:41)
[2017-01-18] MEDS: ACYCLOVIR 400 MG TAB GTB SCH ×5 (08:41→21:06)
--- NOTE | 2017-01-18 09:52 | CONS ---
Date/Time of Note Date/Time of Note DATE: 01/18/17 TIME: 09:50 Assessment/Plan Assessment/Plan Additional Assessment/Plan Ventilator setting; AC of 24, tidal volume 500, PEEP of 5, 50% FiO2. Assessment and recommendations; 1. Patient with history of chronic respiratory failure admitted with pneumonia with interval improvement. 2. Severe pulmonary fibrosis, patient remains chronically ventilator dependent. Continue current treatment. Consultation Date/Type/Reason Admit Date/Time Jan 09, 2017 at 18:37 Initial Consult Date 01/10/17 Type of Consultation: Pulmonary/critical care Referring Provider: MATTHEW CALDERON MD 24 HR Interval Summary Free Text/Dictation Patient condition remains stable. Remains awake and alert. Has remained hemodynamically stable. General exam; elderly male, on ventilator via tracheostomy, awake and alert. Currently in no distress. Exam/Review of Systems Vital Signs Vitals Vital Signs Date Time Temp Pulse Resp B/P Pulse Ox O2 Delivery O2 Flow Rate FiO2 01/18/17 08:17 123 01/18/17 07:50 98.9 33 114/64 95 01/18/17 05:48 45 Intake and Output 01/17/17 01/17/17 01/18/17 15:00 23:00 07:00 Intake Total 850 ml 650 ml Output Total 550 ml 1350 ml Balance 300 ml -700 ml Exam HEENT exam; supple neck, no JVD. No lymphadenopathy. Midline trachea. No thyromegaly. Patient is edentulous. Tracheostomy in place. Chest exam; scattered crackles bilaterally. S1-S2 audible, no murmurs. Regular rhythm. Abdomen exam; soft, nondistended. G-tube in place. Bowel sounds audible. No organomegaly. Nontender. Extremity exam; no peripheral edema. PAPER MACHINE BACK TENDER exam; patient remains awake and alert. Exhibiting no focal motor deficit. Results Result Diagram: 01/18/17 0600 01/18/17 0600 Results 24 hrs Laboratory Tests Test 01/18/17 06:00 White Blood Count 13.8 #H Red Blood Count 3.28 L Hemoglobin 9.5 L Hematocrit 30.5 L Mean Corpuscular Volume 93.0 Mean Corpuscular Hemoglobin 29.0 Mean Corpuscular Hemoglobin Concent 31.1 L Red Cell Distribution Width 17.8 H Platelet Count 384 # Mean Platelet Volume 10.9 H Neutrophils % 74.4 Lymphocytes % 12.3 L Monocytes % 4.8 Eosinophils % 7.0 Basophils % 0.9 Nucleated Red Blood Cells % 0.0 Neutrophils # (Manual) 10.3 H Lymphocytes # 1.7 Monocytes # 0.7 Eosinophils # 1.0 H Basophils # 0.1 Nucleated Red Blood Cells # 0.0 Sodium Level 138 Potassium Level 4.4 Chloride Level 89 L Carbon Dioxide Level 40 H Anion Gap 13 Blood Urea Nitrogen 22 H Creatinine 0.57 L Glucose Level 116 Calcium Level 9.2 Medications Medications Current Medications Ondansetron HCl (Zofran Inj) 4 mg Q6H PRN IV NAUSEA AND/OR VOMITING; Start at 22:00 Acetaminophen (Tylenol Tab) 650 mg Q6H PRN PO PAIN LEVEL 1-3 OR FEVER Last administered on 01/10/17 15:46; Admin Dose 650 MG; Start 01/09/17 at 22:00 Morphine Sulfate (morphine) 2 mg Q4H PRN IV PAIN LEVEL 7-10 Last administered on 01/18/17 05:26; Admin Dose 2 MG; Start 01/09/17 at 22:00 Clonidine (Catapres) 0.1 mg Q6 GTB Last administered on 01/17/17 18:48; Admin Dose 0.1 MG; Start 01/10/17 at 18:00 Diphenhydramine HCl (Benadryl) 25 mg Q6H PRN GTB ITCHING Last administered on 20:54; Admin Dose 25 MG; Start 01/10/17 at 17:00 Folic Acid (Folic Acid) 1 mg DAILY GTB Last administered on 01/18/17 08:35; Admin Dose 1 MG; Start 01/11/17 at 09:00 Acetaminophen/ Hydrocodone Bitart ([place] (5/325)) 1 tab Q4H PRN GTB PAIN LEVEL 4-10/10 Last administered on 01/17/17 18:49; Admin Dose 1 TAB; Start 01/10/17 at 17:00 Lactobacillus Acidophilus (Florajen3 Capsule) 3 each TID PEG Last administered on 01/18/17 08:35; Admin Dose 3 EACH; Start 01/10/17 at 21:00 Lansoprazole (Prevacid) 30 mg DAILY GTB Last administered on 01/18/17 08:35; Admin Dose 30 MG; Start 01/11/17 at 09:00 Metoprolol Tartrate (Lopressor) 50 mg BID GTB Last administered on 01/18/17 08 :36; Admin Dose 50 MG; Start 01/10/17 at 21:00 Oxcarbazepine (Trileptal) 300 mg BID GTB Last administered on 01/18/17 08:35; Admin Dose 300 MG; Start 01/10/17 at 21:00 Metoprolol Tartrate (Lopressor) 5 mg Q4 PRN IV NOTE; Start 01/10/17 at 17:00 Ascorbic Acid (Vitamin C) 500 mg DAILY GTB Last administered on 01/18/17 08:35 ; Admin Dose 500 MG; Start 01/11/17 at 09:00 Diphenhydramine HCl (Benadryl) 25 mg Q6H PRN IV Agitation Last administered on 01/17/17 20:22; Admin Dose 25 MG; Start 01/10/17 at 17:30 Multivitamins 30 ml 30 ml DAILY GTB Last administered on 01/18/17 08:35; Admin Dose 30 ML; Start 01/11/17 at 09:00 Sodium Chloride (NS) 1,000 ml @ 30 mls/hr Q24H IV Last administered on 14:51; Admin Dose 30 MLS/HR; Start 01/10/17 at 18:30 Acetaminophen (Tylenol Liquid) 650 mg Q6H PRN GTB FOR FEVER T>101 Last administered on 01/16/17 21:01; Admin Dose 650 MG; Start 01/10/17 at 18:30 Guaifenesin/ Codeine Phosphate 5 ml 5 ml Q4H PRN PO COUGH Last administered on 01/18/17 05:25; Admin Dose 5 ML; Start 01/17/17 at 12:00 Cefepime HCl (Maxipime 2gm/50 ml (Pmx)) 50 ml @ 100 mls/hr Q8 IVPB Last administered on 01/18/17 05:25; Admin Dose 100 MLS/HR; Start 01/17/17 at 22:00 Quetiapine Fumarate (Seroquel) 50 mg Q6 PO Last administered on 01/18/17 05:26 ; Admin Dose 50 MG; Start 01/18/17 at 00:00 Haloperidol (Haldol) 5 mg Q6H PRN IM AGITATION Last administered on 01/17/17t 22:35; Admin Dose 5 MG; Start 01/17/17 at 22:30 JOSE L BLAKE Jan 18, 2017 09:52
[2017-01-18] MEDS: TOBRAMYCIN/0.25NS 300 MG/5 ML INHAL NEB SCH ×2 (09:54→20:14)
--- NOTE | 2017-01-18 11:10 | CONS ---
Date/Time of Note Date/Time of Note DATE: 01/18/17 TIME: 11:07 Assessment/Plan Assessment/Plan Chief Complaint/Hosp Course IMP: 1.Diastolic CHF 2.HTN 3.Resp failure-chronic s/p trach 4.Pulmonary fibrosis 5. PNA 6.UTI Recc: -Tele -Continue BB as tolerated -Continue abx's and bronchodilators -Follow volume status closely Problems: Consultation Date/Type/Reason Admit Date/Time Jan 09, 2017 at 18:37 Initial Consult Date 01/10/17 Type of Consultation: cardiology Reason for Consultation tachycardia Referring Provider: MATTHEW CALDERON MD Exam/Review of Systems Vital Signs Vitals Vital Signs Date Time Temp Pulse Resp B/P Pulse Ox O2 Delivery O2 Flow Rate FiO2 01/18/17 08:17 123 01/18/17 07:50 98.9 33 114/64 95 01/18/17 05:48 45 Intake and Output 01/17/17 01/17/17 01/18/17 15:00 23:00 07:00 Intake Total 850 ml 650 ml Output Total 550 ml 1350 ml Balance 300 ml -700 ml Exam Review of Systems: CONSTITUTIONAL: No fevers, chills. PULMONARY: No sob CARDIOVASCULAR: No chest pain/palpitations GASTROINTESTINAL: No nausea/vomiting. GENITOURINARY: No hematuria/dysuria. MUSCULOSKELETAL: No myagias/arthalgias. PSYCHIATRIC: The patient denies depression. NEUROLOGIC: No weakness Constitutional: alert Psych: no complaints Head: normocephalic ENMT: mucosa pink and moist Neck: jvd (8 cm water), other (trached), supple Respiratory: other (upper airway rhocheroussounds) Cardiovascular: regular rate and rhythm Gastrointestinal: non-tender, soft Musculoskeletal: muscle tone (normal) Extremities: edema (none) Neurological: lethargic Results Result Diagram: 01/18/17 0600 01/18/17 0600 Results 24 hrs Laboratory Tests Test 01/18/17 06:00 White Blood Count 13.8 #H Red Blood Count 3.28 L Hemoglobin 9.5 L Hematocrit 30.5 L Mean Corpuscular Volume 93.0 Mean Corpuscular Hemoglobin 29.0 Mean Corpuscular Hemoglobin Concent 31.1 L Red Cell Distribution Width 17.8 H Platelet Count 384 # Mean Platelet Volume 10.9 H Neutrophils % 74.4 Lymphocytes % 12.3 L Monocytes % 4.8 Eosinophils % 7.0 Basophils % 0.9 Nucleated Red Blood Cells % 0.0 Neutrophils # (Manual) 10.3 H Lymphocytes # 1.7 Monocytes # 0.7 Eosinophils # 1.0 H Basophils # 0.1 Nucleated Red Blood Cells # 0.0 Sodium Level 138 Potassium Level 4.4 Chloride Level 89 L Carbon Dioxide Level 40 H Anion Gap 13 Blood Urea Nitrogen 22 H Creatinine 0.57 L Glucose Level 116 Calcium Level 9.2 Medications Medications Current Medications Ondansetron HCl (Zofran Inj) 4 mg Q6H PRN IV NAUSEA AND/OR VOMITING; Start at 22:00 Acetaminophen (Tylenol Tab) 650 mg Q6H PRN PO PAIN LEVEL 1-3 OR FEVER Last administered on 01/10/17 15:46; Admin Dose 650 MG; Start 01/09/17 at 22:00 Morphine Sulfate (morphine) 2 mg Q4H PRN IV PAIN LEVEL 7-10 Last administered on 01/18/17 05:26; Admin Dose 2 MG; Start 01/09/17 at 22:00 Clonidine (Catapres) 0.1 mg Q6 GTB Last administered on 01/17/17 18:48; Admin Dose 0.1 MG; Start 01/10/17 at 18:00 Diphenhydramine HCl (Benadryl) 25 mg Q6H PRN GTB ITCHING Last administered on 20:54; Admin Dose 25 MG; Start 01/10/17 at 17:00 Folic Acid (Folic Acid) 1 mg DAILY GTB Last administered on 01/18/17 08:35; Admin Dose 1 MG; Start 01/11/17 at 09:00 Acetaminophen/ Hydrocodone Bitart ([place] (5/325)) 1 tab Q4H PRN GTB PAIN LEVEL 4-10/10 Last administered on 01/17/17 18:49; Admin Dose 1 TAB; Start 01/10/17 at 17:00 Lactobacillus Acidophilus (Florajen3 Capsule) 3 each TID PEG Last administered on 01/18/17 08:35; Admin Dose 3 EACH; Start 01/10/17 at 21:00 Lansoprazole (Prevacid) 30 mg DAILY GTB Last administered on 01/18/17 08:35; Admin Dose 30 MG; Start 01/11/17 at 09:00 Metoprolol Tartrate (Lopressor) 50 mg BID GTB Last administered on 01/18/17 08 :36; Admin Dose 50 MG; Start 01/10/17 at 21:00 Oxcarbazepine (Trileptal) 300 mg BID GTB Last administered on 01/18/17 08:35; Admin Dose 300 MG; Start 01/10/17 at 21:00 Metoprolol Tartrate (Lopressor) 5 mg Q4 PRN IV NOTE; Start 01/10/17 at 17:00 Ascorbic Acid (Vitamin C) 500 mg DAILY GTB Last administered on 01/18/17 08:35 ; Admin Dose 500 MG; Start 01/11/17 at 09:00 Diphenhydramine HCl (Benadryl) 25 mg Q6H PRN IV Agitation Last administered on 01/17/17 20:22; Admin Dose 25 MG; Start 01/10/17 at 17:30 Multivitamins 30 ml 30 ml DAILY GTB Last administered on 01/18/17 08:35; Admin Dose 30 ML; Start 01/11/17 at 09:00 Sodium Chloride (NS) 1,000 ml @ 30 mls/hr Q24H IV Last administered on 14:51; Admin Dose 30 MLS/HR; Start 01/10/17 at 18:30 Acetaminophen (Tylenol Liquid) 650 mg Q6H PRN GTB FOR FEVER T>101 Last administered on 01/16/17 21:01; Admin Dose 650 MG; Start 01/10/17 at 18:30 Guaifenesin/ Codeine Phosphate 5 ml 5 ml Q4H PRN PO COUGH Last administered on 01/18/17 05:25; Admin Dose 5 ML; Start 01/17/17 at 12:00 Cefepime HCl (Maxipime 2gm/50 ml (Pmx)) 50 ml @ 100 mls/hr Q8 IVPB Last administered on 01/18/17 05:25; Admin Dose 100 MLS/HR; Start 01/17/17 at 22:00 Quetiapine Fumarate (Seroquel) 50 mg Q6 PO Last administered on 01/18/17 05:26 ; Admin Dose 50 MG; Start 01/18/17 at 00:00 Haloperidol (Haldol) 5 mg Q6H PRN IM AGITATION Last administered on 01/17/17t 22:35; Admin Dose 5 MG; Start 01/17/17 at 22:30 CLOVIS LENO Jan 18, 2017 11:10
--- NOTE | 2017-01-18 11:58 | CONS ---
RODRIGUEZ GLOVER ROTATING EQUIPMENT SPECIALIST 01/18/17 1158: Date/Time of Note Date/Time of Note DATE: 01/18/17 TIME: 11:48 Assessment/Plan Assessment/Plan Chief Complaint/Hosp Course assessment/impression - sepsis vs. SIRS from adverse reaction to lorazepam at 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 Coli - dysphagia s/p PEG placement 10/09/2016 - erythroderma of unclear etiology in 11/2016, resolved - h/o CARLOS - h/o recurrent UTI due to ESBL E. Coli - h/o funguria - h/o thrush - h/o bacteremia 10/28/2016 due to enterococcus faecium. Midline was dc'd - h/o bacteremia 12/21/2016 due to enterococcus faecalis - s/p severe sepsis due to UTI, prob aspiration after hematemesis and multiple intubation events, and HCAP - s/p acute UGIB of unclear etiology; s/p EGD 10/01/2016 showing no active bleeding site - HLD and fatty liver - h/o alcoholism - chronic diastolic HF - diverticulosis, seen on CT at [facility] - severe protein calorie malnutrition - h/o fall and trauma to R foot recommendations: - continue cefepime (01/09/2017-) for 10-14 days - continue nebulized tobramycin (01/17/2017-) for 10 days Pt's colonized with multiple bacteria, and it is impossible to cover all bacteria - continue 7 day course of pGT acyclovir for labial herpes infection (01/17/2017- ) Management d/w KOFI Albert and Dr. Childers Problems: Consultation Date/Type/Reason Admit Date/Time Jan 09, 2017 at 18:37 Initial Consult Date 01/10/17 Type of Consultation: Infectious Disease Referring Provider: MATTHEW CALDERON MD 24 HR Interval Summary Free Text/Dictation No acute issues. Looking for placement per d/w nursing staff. Moves left hand diagonally side to side as to report "so-so" when asked if he has pain. Nods no to SOB or nausea. ROS limited due to pt being non-verbal. Subjective hx not possible: pt non-verbal Exam/Review of Systems Vital Signs Vitals Vital Signs Date Time Temp Pulse Resp B/P Pulse Ox O2 Delivery O2 Flow Rate FiO2 01/18/17 11:15 98.0 97 22 101/56 99 01/18/17 05:48 45 Intake and Output 01/17/17 01/17/17 01/18/17 15:00 23:00 07:00 Intake Total 850 ml 650 ml Output Total 550 ml 1350 ml Balance 300 ml -700 ml Exam Constitutional: alert, frail, non-verbal, well developed Head: atraumatic, normocephalic, other (temporal wasting) Eyes: nl conjunctiva, nl lids, nl sclera ENMT: nl external ears & nose, other (ulcer and dried blood on the lower lip) Neck: other (trach) Respiratory: crackles/rales Cardiovascular: nl pulses, regular rate and rhythm Gastrointestinal: non-tender, other (G-tube present), soft Genitourinary - Male: other (Robin catheter present) Musculoskeletal: nl extremities to inspection Extremities: other (bilateral foot drop), No edema Neurological: other (Nods to simple questions when spoken to in Georgian) Skin: nl turgor, No rash or lesions Results Result Diagram: 01/18/17 0600 01/18/17 0600 Results 24 hrs Laboratory Tests Test 01/18/17 06:00 White Blood Count 13.8 #H Red Blood Count 3.28 L Hemoglobin 9.5 L Hematocrit 30.5 L Mean Corpuscular Volume 93.0 Mean Corpuscular Hemoglobin 29.0 Mean Corpuscular Hemoglobin Concent 31.1 L Red Cell Distribution Width 17.8 H Platelet Count 384 # Mean Platelet Volume 10.9 H Neutrophils % 74.4 Lymphocytes % 12.3 L Monocytes % 4.8 Eosinophils % 7.0 Basophils % 0.9 Nucleated Red Blood Cells % 0.0 Neutrophils # (Manual) 10.3 H Lymphocytes # 1.7 Monocytes # 0.7 Eosinophils # 1.0 H Basophils # 0.1 Nucleated Red Blood Cells # 0.0 Sodium Level 138 Potassium Level 4.4 Chloride Level 89 L Carbon Dioxide Level 40 H Anion Gap 13 Blood Urea Nitrogen 22 H Creatinine 0.57 L Glucose Level 116 Calcium Level 9.2 Medications Medications Current Medications Ondansetron HCl (Zofran Inj) 4 mg Q6H PRN IV NAUSEA AND/OR VOMITING; Start at 22:00 Acetaminophen (Tylenol Tab) 650 mg Q6H PRN PO PAIN LEVEL 1-3 OR FEVER Last administered on 01/10/17 15:46; Admin Dose 650 MG; Start 01/09/17 at 22:00 Morphine Sulfate (morphine) 2 mg Q4H PRN IV PAIN LEVEL 7-10 Last administered on 01/18/17 05:26; Admin Dose 2 MG; Start 01/09/17 at 22:00 Clonidine (Catapres) 0.1 mg Q6 GTB Last administered on 01/17/17 18:48; Admin Dose 0.1 MG; Start 01/10/17 at 18:00 Diphenhydramine HCl (Benadryl) 25 mg Q6H PRN GTB ITCHING Last administered on 20:54; Admin Dose 25 MG; Start 01/10/17 at 17:00 Folic Acid (Folic Acid) 1 mg DAILY GTB Last administered on 01/18/17 08:35; Admin Dose 1 MG; Start 01/11/17 at 09:00 Acetaminophen/ Hydrocodone Bitart ([place] (5/325)) 1 tab Q4H PRN GTB PAIN LEVEL 4-10/10 Last administered on 01/17/17 18:49; Admin Dose 1 TAB; Start 01/10/17 at 17:00 Lactobacillus Acidophilus (Florajen3 Capsule) 3 each TID PEG Last administered on 01/18/17 08:35; Admin Dose 3 EACH; Start 01/10/17 at 21:00 Lansoprazole (Prevacid) 30 mg DAILY GTB Last administered on 01/18/17 08:35; Admin Dose 30 MG; Start 01/11/17 at 09:00 Metoprolol Tartrate (Lopressor) 50 mg BID GTB Last administered on 01/18/17 08 :36; Admin Dose 50 MG; Start 01/10/17 at 21:00 Oxcarbazepine (Trileptal) 300 mg BID GTB Last administered on 01/18/17 08:35; Admin Dose 300 MG; Start 01/10/17 at 21:00 Metoprolol Tartrate (Lopressor) 5 mg Q4 PRN IV NOTE; Start 01/10/17 at 17:00 Ascorbic Acid (Vitamin C) 500 mg DAILY GTB Last administered on 01/18/17 08:35 ; Admin Dose 500 MG; Start 01/11/17 at 09:00 Diphenhydramine HCl (Benadryl) 25 mg Q6H PRN IV Agitation Last administered on 01/17/17 20:22; Admin Dose 25 MG; Start 01/10/17 at 17:30 Multivitamins 30 ml 30 ml DAILY GTB Last administered on 01/18/17 08:35; Admin Dose 30 ML; Start 01/11/17 at 09:00 Sodium Chloride (NS) 1,000 ml @ 30 mls/hr Q24H IV Last administered on 14:51; Admin Dose 30 MLS/HR; Start 01/10/17 at 18:30 Acetaminophen (Tylenol Liquid) 650 mg Q6H PRN GTB FOR FEVER T>101 Last administered on 01/16/17 21:01; Admin Dose 650 MG; Start 01/10/17 at 18:30 Guaifenesin/ Codeine Phosphate 5 ml 5 ml Q4H PRN PO COUGH Last administered on 01/18/17 05:25; Admin Dose 5 ML; Start 01/17/17 at 12:00 Cefepime HCl (Maxipime 2gm/50 ml (Pmx)) 50 ml @ 100 mls/hr Q8 IVPB Last administered on 01/18/17 05:25; Admin Dose 100 MLS/HR; Start 01/17/17 at 22:00 Quetiapine Fumarate (Seroquel) 50 mg Q6 PO Last administered on 01/18/17 05:26 ; Admin Dose 50 MG; Start 01/18/17 at 00:00 Haloperidol (Haldol) 5 mg Q6H PRN IM AGITATION Last administered on 01/17/17 22:35; Admin Dose 5 MG; Start 01/17/17 at 22:30 MADISON CHILDERS M.D. 01/19/172042: Assessment/Plan Assessment/Plan Additional Assessment/Plan Liseth attestation: I discussed the management with CARSON Glover and agree with above. Exam/Review of Systems Results Result Diagram: 01/18/1700 01/18/1700 RODRIGUEZ GLOVER NP Jan 18, 2017 11:58 MADISON CHILDERS M.D. Jan 19, 2017 20:43
[2017-01-18] MEDS: SOD CHLORIDE 0.9% 1,000 ML IV SCH (13:41)
--- NOTE | 2017-01-18 14:21 | PN ---
Date/Time of Note Date/Time of Note DATE: 01/18/17 TIME: 14:19 Assessment/Plan VTE Prophylaxis VTE Prophylaxis Intervention: SCD's Lines/Catheters IV Catheter Type (from Nrs): Peripheral IV Urinary Cath still in place: Yes Reason Cath still needed: urinary retention Assessment/Plan Chief Complaint/Hosp Course Patient was increased leukocytosis and intermittent tachycardia, low-grade fever , continues to have large amount of secretions from the tracheostomy. Assessment/Plan - Possible recurrent sepsis. Dr. Laguerre is following infection disease consultation. Continue antibiotics per ID. - Pulmonary fibrosis. - Ventilatory dependent respiratory failure with tracheostomy. Dr. Souza is following in pulmonology consultation. - Chronic diastolic congestive heart failure. - Dysphagia with PEG. - Fatty liver. - Anemia, stool for OB is negative, continue to monitor H&H. Further recommendations based on clinical course. Plan of care discussed with Dr. Austin Problems: Exam/Review of Systems Vital Signs Vitals Vital Signs Date Time Temp Pulse Resp B/P Pulse Ox O2 Delivery O2 Flow Rate FiO2 01/18/17 12:03 103 01/18/17 11:15 98.0 22 101/56 99 01/18/17 05:48 45 Intake and Output 01/17/17 01/17/17 01/18/17 15:00 23:00 07:00 Intake Total 850 ml 650 ml Output Total 550 ml 1350 ml Balance 300 ml -700 ml Exam Constitutional: alert, non-verbal Head: normocephalic Neck: other Respiratory: diminished breath sounds Cardiovascular: nl pulses Gastrointestinal: non-tender, other (G-tube), soft Extremities: normal pulses Results Result Diagram: 01/18/17 0600 01/18/17 0600 Results 24 hrs Laboratory Tests Test 01/18/17 06:00 White Blood Count 13.8 #H Red Blood Count 3.28 L Hemoglobin 9.5 L Hematocrit 30.5 L Mean Corpuscular Volume 93.0 Mean Corpuscular Hemoglobin 29.0 Mean Corpuscular Hemoglobin Concent 31.1 L Red Cell Distribution Width 17.8 H Platelet Count 384 # Mean Platelet Volume 10.9 H Neutrophils % 74.4 Lymphocytes % 12.3 L Monocytes % 4.8 Eosinophils % 7.0 Basophils % 0.9 Nucleated Red Blood Cells % 0.0 Neutrophils # (Manual) 10.3 H Lymphocytes # 1.7 Monocytes # 0.7 Eosinophils # 1.0 H Basophils # 0.1 Nucleated Red Blood Cells # 0.0 Sodium Level 138 Potassium Level 4.4 Chloride Level 89 L Carbon Dioxide Level 40 H Anion Gap 13 Blood Urea Nitrogen 22 H Creatinine 0.57 L Glucose Level 116 Calcium Level 9.2 Medications Medications Current Medications Ondansetron HCl (Zofran Inj) 4 mg Q6H PRN IV NAUSEA AND/OR VOMITING; Start at 22:00 Acetaminophen (Tylenol Tab) 650 mg Q6H PRN PO PAIN LEVEL 1-3 OR FEVER Last administered on 01/10/17 15:46; Admin Dose 650 MG; Start 01/09/17 at 22:00 Morphine Sulfate (morphine) 2 mg Q4H PRN IV PAIN LEVEL 7-10 Last administered on 01/18/17 05:26; Admin Dose 2 MG; Start 01/09/17 at 22:00 Clonidine (Catapres) 0.1 mg Q6 GTB Last administered on 01/17/17 18:48; Admin Dose 0.1 MG; Start 01/10/17 at 18:00 Diphenhydramine HCl (Benadryl) 25 mg Q6H PRN GTB ITCHING Last administered on 20:54; Admin Dose 25 MG; Start 01/10/17 at 17:00 Folic Acid (Folic Acid) 1 mg DAILY GTB Last administered on 01/18/17 08:35; Admin Dose 1 MG; Start 01/11/17 at 09:00 Acetaminophen/ Hydrocodone Bitart ([place] (5/325)) 1 tab Q4H PRN GTB PAIN LEVEL 4-10/10 Last administered on 01/17/17 18:49; Admin Dose 1 TAB; Start 01/10/17 at 17:00 Lactobacillus Acidophilus (Florajen3 Capsule) 3 each TID PEG Last administered on 01/18/17 12:51; Admin Dose 3 EACH; Start 01/10/17 at 21:00 Lansoprazole (Prevacid) 30 mg DAILY GTB Last administered on 01/18/17 08:35; Admin Dose 30 MG; Start 01/11/17 at 09:00 Metoprolol Tartrate (Lopressor) 50 mg BID GTB Last administered on 01/18/17 08 :36; Admin Dose 50 MG; Start 01/10/17 at 21:00 Oxcarbazepine (Trileptal) 300 mg BID GTB Last administered on 01/18/17 08:35; Admin Dose 300 MG; Start 01/10/17 at 21:00 Metoprolol Tartrate (Lopressor) 5 mg Q4 PRN IV NOTE; Start 01/10/17 at 17:00 Ascorbic Acid (Vitamin C) 500 mg DAILY GTB Last administered on 01/18/17 08:35 ; Admin Dose 500 MG; Start 01/11/17 at 09:00 Diphenhydramine HCl (Benadryl) 25 mg Q6H PRN IV Agitation Last administered on 01/17/17 20:22; Admin Dose 25 MG; Start 01/10/17 at 17:30 Multivitamins 30 ml 30 ml DAILY GTB Last administered on 01/18/17 08:35; Admin Dose 30 ML; Start 01/11/17 at 09:00 Sodium Chloride (NS) 1,000 ml @ 30 mls/hr Q24H IV Last administered on 14:51; Admin Dose 30 MLS/HR; Start 01/10/17 at 18:30 Acetaminophen (Tylenol Liquid) 650 mg Q6H PRN GTB FOR FEVER T>101 Last administered on 01/16/17 21:01; Admin Dose 650 MG; Start 01/10/17 at 18:30 Guaifenesin/ Codeine Phosphate 5 ml 5 ml Q4H PRN PO COUGH Last administered on 01/18/17 05:25; Admin Dose 5 ML; Start 01/17/17 at 12:00 Cefepime HCl (Maxipime 2gm/50 ml (Pmx)) 50 ml @ 100 mls/hr Q8 IVPB Last administered on 01/18/17 14:07; Admin Dose 100 MLS/HR; Start 01/17/17 at 22:00 Quetiapine Fumarate (Seroquel) 50 mg Q6 PO Last administered on 01/18/17 12:52 ; Admin Dose 50 MG; Start 01/18/17 at 00:00 Haloperidol (Haldol) 5 mg Q6H PRN IM AGITATION Last administered on 01/17/17 22:35; Admin Dose 5 MG; Start 01/17/17 at 22:30 MARIO LAND Jan 18, 2017 14:21
[2017-01-19] VITALS (22 sets, daily range): BP systolic 85–147; BP diastolic 47–64; PULSE 78–123; RESP 16–34
[2017-01-19] MEDS: IPRATROPIUM (HFA) 12.9 GM INHALER INH SCH ×6 (01:00→20:27)
[2017-01-19] MEDS: ALBUTEROL 18 GM INHALER INH SCH ×6 (01:00→20:27)
[2017-01-19] MEDS: QUETIAPINE 25 MG TAB PO SCH ×4 (06:00→17:43)
[2017-01-19] MEDS: CEFEPIME 2GM/50 ML (PMX) 50 ML IVPB SCH ×2 (06:00→14:35)
[2017-01-19 06:35] LABS: BASOPHIL # 0.1 10^3/ul (0.0-0.1); BASOPHILS % 0.5 % (0.0-2.0); EOSINOPHILS # 0.5 10^3/ul (0.0-0.5); EOSINOPHILS % 4.4 % (0.0-7.0); HEMATOCRIT 24.1 % (42.0-52.0); HEMOGLOBIN 7.6 g/dl (14.0-18.0); LYMPHOCYTES # 1.1 10^3/ul (0.8-2.9); LYMPHOCYTES % 9.5 % (15.0-51.0); MEAN CORPUSCULAR HEMOGLOBIN 29.1 pg (29.0-33.0); MEAN CORPUSCULAR HGB CONC 31.5 g/dl (32.0-37.0); MEAN CORPUSCULAR VOLUME 92.3 fl (82.0-101.0); MEAN PLATELET VOLUME 10.8 fl (7.4-10.4); MONOCYTE # 0.6 10^3/ul (0.3-0.9); MONOCYTES % 5.1 % (0.0-11.0); NEUTROPHILS % 80.1 % (39.0-77.0); PLATELET COUNT 279 10^3/UL (140-415); POSITIVE DIFF @See below; RED BLOOD COUNT 2.61 10^6/ul (4.70-6.10); RED CELL DISTRIBUTION WIDTH 17.7 % (11.5-14.5); WHITE BLOOD COUNT 11.1 10^3/ul (4.8-10.8)
[2017-01-19 07:03] LABS: CALCIUM 9.2 mg/dl (8.4-10.2); CREATININE 0.53 mg/dl (0.61-1.24); POTASSIUM 4.3 mmol/L (3.5-5.1)
[2017-01-19] MEDS: ACYCLOVIR 400 MG TAB GTB SCH ×5 (09:15→21:47)
[2017-01-19] MEDS: ASCORBIC ACID 500 MG TAB GTB SCH (09:16)
[2017-01-19] MEDS: OXCARBAZEPINE 300 MG TAB GTB SCH ×2 (09:16→21:46)
[2017-01-19] MEDS: METOPROLOL 50 MG TAB GTB SCH ×2 (09:16→21:00)
[2017-01-19] MEDS: MULTIVITAMINS 30 ML CUP GTB SCH (09:16)
[2017-01-19] MEDS: FOLIC ACID 1 MG TAB GTB SCH (09:16)
[2017-01-19] MEDS: LANSOPRAZOLE 30 MG CAP GTB SCH (09:16)
[2017-01-19] MEDS: L ACIDOPHIL/B LACTIS/B LONGUM CAPSULE PEG SCH ×3 (09:17→21:46)
--- NOTE | 2017-01-19 12:13 | CONS ---
Date/Time of Note Date/Time of Note DATE: 01/19/17 TIME: 12:12 Assessment/Plan Assessment/Plan Additional Assessment/Plan 1. Tachycardia - with underlying infection. Better now - in sinus at 60s currently. BETTER now - looks more comfortable on exam. 2. Heart failure. The patient has a history of congestive heart failure, does not appear to be in fluid overload. Continue to monitor closely. Diast HF, chronic. 3. Chest pain - R/O TN, doubt ischemai. Troponins are negative.No intervention planned. 4. Infection. Continue the patient on anti-bx. 5. Respiratory failure. The patient is on a ventilator,continue to follow as needed. Trach care in place. 6. History of pneumonia. Continue pneumonia care per primary team. 7. Anemia. Hemoglobin is fairly stable. No evidence of bleeding now. Consultation Date/Type/Reason Admit Date/Time Jan 09, 2017 at 18:37 Initial Consult Date 01/10/17 Type of Consultation: Infectious Disease Referring Provider: MATTHEW CALDERON MD 24 HR Interval Summary Free Text/Dictation BETTER now - looks more comfortable on exam. ROS: No fever, no chills, no nausea, no vomiting, no diarrhea/constipation No recent weight changes No chest pain, no PND, no orthopnea No dizziness, blurred vision No thirst, no heat or cold intolerance (danuta now) Exam/Review of Systems Vital Signs Vitals Vital Signs Date Time Temp Pulse Resp B/P Pulse Ox O2 Delivery O2 Flow Rate FiO2 01/19/17 12:05 98.6 111 16 147/64 97 01/19/17 07:35 45 01/19/17 04:00 Mechanical Ventilator Intake and Output 01/18/17 01/18/17 01/19/17 15:00 23:00 07:00 Intake Total 50 ml 1350 ml 1250 ml Output Total 800 ml 600 ml Balance 50 ml 550 ml 650 ml Exam General: WN/WD/NAD, AOx 3 HEENT: Unicetric/atraumatic/EOMI (follow commands) NECK: JVD elevated, no thyromegaly, trach in place Lymph: no lymphadenopathy HEART: regular with no S3, II/ systolic murmur at apex LUNGS: Coarse sounds ABD: soft, NT, ND, +BS : Intact Neuro: non focal SKIN: chronic changes EXT: trace edema Results Result Diagram: 01/19/17 0525 01/19/17 0525 Results 24 hrs Laboratory Tests Test 01/19/17 05:25 White Blood Count 11.1 H Red Blood Count 2.61 #L Hemoglobin 7.6 L Hematocrit 24.1 #L Mean Corpuscular Volume 92.3 Mean Corpuscular Hemoglobin 29.1 Mean Corpuscular Hemoglobin Concent 31.5 L Red Cell Distribution Width 17.7 H Platelet Count 279 # Mean Platelet Volume 10.8 H Neutrophils % 80.1 H Lymphocytes % 9.5 L Monocytes % 5.1 Eosinophils % 4.4 Basophils % 0.5 Nucleated Red Blood Cells % 0.0 Neutrophils # (Manual) 8.9 H Lymphocytes # 1.1 Monocytes # 0.6 Eosinophils # 0.5 Basophils # 0.1 Nucleated Red Blood Cells # 0.0 Sodium Level 133 L Potassium Level 4.3 Chloride Level 89 L Carbon Dioxide Level 38 H Anion Gap 10 Blood Urea Nitrogen 27 H Creatinine 0.53 L Glucose Level 108 Calcium Level 9.2 Medications Medications Current Medications Ondansetron HCl (Zofran Inj) 4 mg Q6H PRN IV NAUSEA AND/OR VOMITING; Start at 22:00 Acetaminophen (Tylenol Tab) 650 mg Q6H PRN PO PAIN LEVEL 1-3 OR FEVER Last administered on 01/10/17 15:46; Admin Dose 650 MG; Start 01/09/17 at 22:00 Morphine Sulfate (morphine) 2 mg Q4H PRN IV PAIN LEVEL 7-10 Last administered on 01/18/17 21:46; Admin Dose 2 MG; Start 01/09/17 at 22:00 Clonidine (Catapres) 0.1 mg Q6 GTB Last administered on 01/19/17 06:00; Admin Dose 0.1 MG; Start 01/10/17 at 18:00 Diphenhydramine HCl (Benadryl) 25 mg Q6H PRN GTB ITCHING Last administered on 20:54; Admin Dose 25 MG; Start 01/10/17 at 17:00 Folic Acid (Folic Acid) 1 mg DAILY GTB Last administered on 01/19/17 09:16; Admin Dose 1 MG; Start 01/11/17 at 09:00 Acetaminophen/ Hydrocodone Bitart ([place] (5/325)) 1 tab Q4H PRN GTB PAIN LEVEL 4-10/10 Last administered on 01/17/17 18:49; Admin Dose 1 TAB; Start 01/10/17 at 17:00 Lactobacillus Acidophilus (Florajen3 Capsule) 3 each TID PEG Last administered on 01/19/17 09:17; Admin Dose 3 EACH; Start 01/10/17 at 21:00 Lansoprazole (Prevacid) 30 mg DAILY GTB Last administered on 01/19/17 09:16; Admin Dose 30 MG; Start 01/11/17 at 09:00 Metoprolol Tartrate (Lopressor) 50 mg BID GTB Last administered on 01/19/17 09 :16; Admin Dose 50 MG; Start 01/10/17 at 21:00 Oxcarbazepine (Trileptal) 300 mg BID GTB Last administered on 01/19/17 09:16; Admin Dose 300 MG; Start 01/10/17 at 21:00 Metoprolol Tartrate (Lopressor) 5 mg Q4 PRN IV NOTE; Start 01/10/17 at 17:00 Ascorbic Acid (Vitamin C) 500 mg DAILY GTB Last administered on 01/19/17 09:16 ; Admin Dose 500 MG; Start 01/11/17 at 09:00 Diphenhydramine HCl (Benadryl) 25 mg Q6H PRN IV Agitation Last administered on 01/17/17 20:22; Admin Dose 25 MG; Start 01/10/17 at 17:30 Multivitamins 30 ml 30 ml DAILY GTB Last administered on 01/19/17 09:16; Admin Dose 30 ML; Start 01/11/17 at 09:00 Sodium Chloride (NS) 1,000 ml @ 30 mls/hr Q24H IV Last administered on 14:51; Admin Dose 30 MLS/HR; Start 01/10/17 at 18:30 Acetaminophen (Tylenol Liquid) 650 mg Q6H PRN GTB FOR FEVER T>101 Last administered on 01/16/17 21:01; Admin Dose 650 MG; Start 01/10/17 at 18:30 Guaifenesin/ Codeine Phosphate 5 ml 5 ml Q4H PRN PO COUGH Last administered on 01/18/17 05:25; Admin Dose 5 ML; Start 01/17/17 at 12:00 Cefepime HCl (Maxipime 2gm/50 ml (Pmx)) 50 ml @ 100 mls/hr Q8 IVPB Last administered on 01/19/17 06:00; Admin Dose 100 MLS/HR; Start 01/17/17 at 22:00 Quetiapine Fumarate (Seroquel) 50 mg Q6 PO Last administered on 01/19/17 06:00 ; Admin Dose 50 MG; Start 01/18/17 at 00:00 Haloperidol (Haldol) 5 mg Q6H PRN IM AGITATION Last administered on 01/17/17 22:35; Admin Dose 5 MG; Start 01/17/17 at 22:30 REED DESIR MD Jan 19, 2017 12:13
--- NOTE | 2017-01-19 13:57 | PN ---
Date/Time of Note Date/Time of Note DATE: 01/19/17 TIME: 13:53 Assessment/Plan VTE Prophylaxis VTE Prophylaxis Intervention: other Lines/Catheters IV [facility] Type [facility] Peripheral IV Urinary Cath still in place: Yes Reason Cath still needed: urinary retention Assessment/Plan Assessment/Plan - Possible recurrent sepsis. Dr. Laguerre is following infection disease consultation. Continue antibiotics per ID. - Pulmonary fibrosis. - Ventilatory dependent respiratory failure with tracheostomy. Dr. Souza is following in pulmonology consultation. - Chronic diastolic congestive heart failure. - Dysphagia with PEG. - Fatty liver. - Anemia, stool for OB is negative, continue to monitor H&H. Further recommendations based on clinical course. Plan of care discussed with Dr. Austin Subjective 24 Hr Interval Summary Free Text/Dictation alert, responsive, follows simple commands, afebrile, trach intact, dw staff. Constitutional: requiring O2 Respiratory: no complaints Cardiovascular: no complaints Gastrointestinal: no complaints Genitourinary: no complaints Musculoskeletal: no complaints Exam/Review of Systems Vital Signs Vitals Vital Signs Date Time Temp Pulse Resp B/P Pulse Ox O2 Delivery O2 Flow Rate FiO2 01/19/17 12:13 112 01/19/17 12:05 98.6 16 147/64 97 01/19/17 11:10 45 01/19/17 04:00 Mechanical Ventilator Intake and Output 01/18/17 01/18/17 01/19/17 15:00 23:00 07:00 Intake Total 50 ml 1350 ml 1250 ml Output Total 800 ml 600 ml Balance 50 ml 550 ml 650 ml Exam Constitutional: alert, well developed Psych: nl mood/affect Neck: other (intact) Respiratory: diminished breath sounds, normal air movement Cardiovascular: nl pulses (ST - HR 110), other, regular rate and rhythm Gastrointestinal: non-tender, soft Musculoskeletal: nl extremities to inspection Extremities: normal pulses Results Result Diagram: 01/19/1725 01/19/17524 Results 24 hrs Laboratory Tests Test 01/19/17 05:25 White Blood Count 11.1 H Red Blood Count 2.61 #L Hemoglobin 7.6 L Hematocrit 24.1 #L Mean Corpuscular Volume 92.3 Mean Corpuscular Hemoglobin 29.1 Mean Corpuscular Hemoglobin Concent 31.5 L Red Cell Distribution Width 17.7 H Platelet Count 279 # Mean Platelet Volume 10.8 H Neutrophils % 80.1 H Lymphocytes % 9.5 L Monocytes % 5.1 Eosinophils % 4.4 Basophils % 0.5 Nucleated Red Blood Cells % 0.0 Neutrophils # (Manual) 8.9 H Lymphocytes # 1.1 Monocytes # 0.6 Eosinophils # 0.5 Basophils # 0.1 Nucleated Red Blood Cells # 0.0 Sodium Level 133 L Potassium Level 4.3 Chloride Level 89 L Carbon Dioxide Level 38 H Anion Gap 10 Blood Urea Nitrogen 27 H Creatinine 0.53 L Glucose Level 108 Calcium Level 9.2 Medications Medications Current Medications Ondansetron HCl (Zofran Inj) 4 mg Q6H PRN IV NAUSEA AND/OR VOMITING; Start at 22:00 Acetaminophen (Tylenol Tab) 650 mg Q6H PRN PO PAIN LEVEL 1-3 OR FEVER Last administered on 01/10/17 15:46; Admin Dose 650 MG; Start 01/09/17 at 22:00 Morphine Sulfate (morphine) 2 mg Q4H PRN IV PAIN LEVEL 7-10 Last administered on 01/18/17 21:46; Admin Dose 2 MG; Start 01/09/17 at 22:00 Clonidine (Catapres) 0.1 mg Q6 GTB Last administered on 01/19/17 12:11; Admin Dose 0.1 MG; Start 01/10/17 at 18:00 Diphenhydramine HCl (Benadryl) 25 mg Q6H PRN GTB ITCHING Last administered on 20:54; Admin Dose 25 MG; Start 01/10/17 at 17:00 Folic Acid (Folic Acid) 1 mg DAILY GTB Last administered on 01/19/17 09:16; Admin Dose 1 MG; Start 01/11/17 at 09:00 Acetaminophen/ Hydrocodone Bitart ([place] (5/325)) 1 tab Q4H PRN GTB PAIN LEVEL 4-10/10 Last administered on 01/17/17 18:49; Admin Dose 1 TAB; Start 01/10/17 at 17:00 Lactobacillus Acidophilus (Florajen3 Capsule) 3 each TID PEG Last administered on 01/19/17 12:12; Admin Dose 3 EACH; Start 01/10/17 at 21:00 Lansoprazole (Prevacid) 30 mg DAILY GTB Last administered on 01/19/17 09:16; Admin Dose 30 MG; Start 01/11/17 at 09:00 Metoprolol Tartrate (Lopressor) 50 mg BID GTB Last administered on 01/19/17 09 :16; Admin Dose 50 MG; Start 01/10/17 at 21:00 Oxcarbazepine (Trileptal) 300 mg BID GTB Last administered on 01/19/17 09:16; Admin Dose 300 MG; Start 01/10/17 at 21:00 Metoprolol Tartrate (Lopressor) 5 mg Q4 PRN IV NOTE; Start 01/10/17 at 17:00 Ascorbic Acid (Vitamin C) 500 mg DAILY GTB Last administered on 01/19/17 09:16 ; Admin Dose 500 MG; Start 01/11/17 at 09:00 Diphenhydramine HCl (Benadryl) 25 mg Q6H PRN IV Agitation Last administered on 01/17/17 20:22; Admin Dose 25 MG; Start 01/10/17 at 17:30 Multivitamins 30 ml 30 ml DAILY GTB Last administered on 01/19/17 09:16; Admin Dose 30 ML; Start 01/11/17 at 09:00 Sodium Chloride (NS) 1,000 ml @ 30 mls/hr Q24H IV Last administered on 14:51; Admin Dose 30 MLS/HR; Start 01/10/17 at 18:30 Acetaminophen (Tylenol Liquid) 650 mg Q6H PRN GTB FOR FEVER T>101 Last administered on 01/16/17 21:01; Admin Dose 650 MG; Start 01/10/17 at 18:30 Guaifenesin/ Codeine Phosphate 5 ml 5 ml Q4H PRN PO COUGH Last administered on 01/18/17 05:25; Admin Dose 5 ML; Start 01/17/17 at 12:00 Cefepime HCl (Maxipime 2gm/50 ml (Pmx)) 50 ml @ 100 mls/hr Q8 IVPB Last administered on 01/19/17 06:00; Admin Dose 100 MLS/HR; Start 01/17/17 at 22:00 Quetiapine Fumarate (Seroquel) 50 mg Q6 PO Last administered on 8/26/17at 12:12 ; Admin Dose 50 MG; Start 01/18/17 at 00:00 Haloperidol (Haldol) 5 mg Q6H PRN IM AGITATION Last administered on 01/17/17t 22:35; Admin Dose 5 MG; Start 01/17/17 at 22:30 CHRAITY DUKE Jan 19, 2017 13:57
[2017-01-19] MEDS: SOD CHLORIDE 0.9% 1,000 ML IV SCH (14:37)
[2017-01-19] MEDS: TOBRAMYCIN/0.25NS 300 MG/5 ML INHAL NEB SCH ×2 (15:05→20:11)
[2017-01-19] MEDS: ACETAMINOPHEN 650MG/20.3ML CUP GTB PRN (15:38)
--- NOTE | 2017-01-19 18:15 | CONS ---
Date/Time of Note Date/Time of Note DATE: 01/19/17 TIME: 18:13 Consult Date/Type/Reason Admit Date/Time Jan 09, 2017 at 18:37 Initial Consult Date 01/10/17 Type of Consultation: Pulm Ordering Provider: MATTHEW CALDERON MD Subjective On vent. No events. Objective Vital Signs Date Time Temp Pulse Resp B/P Pulse Ox O2 Delivery O2 Flow Rate FiO2 01/19/17 17:10 102 32 98 45 01/19/17 15:31 102.2 102/52 01/19/17 04:00 Mechanical Ventilator Intake and Output 01/18/17 01/18/17 01/19/17 15:00 23:00 07:00 Intake Total 50 ml 1350 ml 1250 ml Output Total 800 ml 600 ml Balance 50 ml 550 ml 650 ml Exam HEENT: Neck supple; no JVD; no LAD, + trach CVS: RRR, S1 and S2 CHEST: Bibasilar rales ABD: Soft, NT, + BS EXT: No c/c/e Results/Medications Result Diagram: 01/19/17 0525 01/19/17 0525 Results 24 hrs Laboratory Tests Test 01/19/17 05:25 White Blood Count 11.1 H Red Blood Count 2.61 #L Hemoglobin 7.6 L Hematocrit 24.1 #L Mean Corpuscular Volume 92.3 Mean Corpuscular Hemoglobin 29.1 Mean Corpuscular Hemoglobin Concent 31.5 L Red Cell Distribution Width 17.7 H Platelet Count 279 # Mean Platelet Volume 10.8 H Neutrophils % 80.1 H Lymphocytes % 9.5 L Monocytes % 5.1 Eosinophils % 4.4 Basophils % 0.5 Nucleated Red Blood Cells % 0.0 Neutrophils # (Manual) 8.9 H Lymphocytes # 1.1 Monocytes # 0.6 Eosinophils # 0.5 Basophils # 0.1 Nucleated Red Blood Cells # 0.0 Sodium Level 133 L Potassium Level 4.3 Chloride Level 89 L Carbon Dioxide Level 38 H Anion Gap 10 Blood Urea Nitrogen 27 H Creatinine 0.53 L Glucose Level 108 Calcium Level 9.2 Medications Current Medications Ondansetron HCl (Zofran Inj) 4 mg Q6H PRN IV NAUSEA AND/OR VOMITING; Start at 22:00 Acetaminophen (Tylenol Tab) 650 mg Q6H PRN PO PAIN LEVEL 1-3 OR FEVER Last administered on 01/10/17 15:46; Admin Dose 650 MG; Start 01/09/17 at 22:00 Morphine Sulfate (morphine) 2 mg Q4H PRN IV PAIN LEVEL 7-10 Last administered on 01/18/17 21:46; Admin Dose 2 MG; Start 01/09/17 at 22:00 Clonidine (Catapres) 0.1 mg Q6 GTB Last administered on 01/19/17 12:11; Admin Dose 0.1 MG; Start 01/10/17 at 18:00 Diphenhydramine HCl (Benadryl) 25 mg Q6H PRN GTB ITCHING Last administered on 20:54; Admin Dose 25 MG; Start 01/10/17 at 17:00 Folic Acid (Folic Acid) 1 mg DAILY GTB Last administered on 01/19/17 09:16; Admin Dose 1 MG; Start 01/11/17 at 09:00 Acetaminophen/ Hydrocodone Bitart ([place] (5/325)) 1 tab Q4H PRN GTB PAIN LEVEL 4-10/10 Last administered on 01/17/17 18:49; Admin Dose 1 TAB; Start 01/10/17 at 17:00 Lactobacillus Acidophilus (Florajen3 Capsule) 3 each TID PEG Last administered on 01/19/17 12:12; Admin Dose 3 EACH; Start 01/10/17 at 21:00 Lansoprazole (Prevacid) 30 mg DAILY GTB Last administered on 01/19/17 09:16; Admin Dose 30 MG; Start 01/11/17 at 09:00 Metoprolol Tartrate (Lopressor) 50 mg BID GTB Last administered on 01/19/17 09 :16; Admin Dose 50 MG; Start 01/10/17 at 21:00 Oxcarbazepine (Trileptal) 300 mg BID GTB Last administered on 01/19/17 09:16; Admin Dose 300 MG; Start 01/10/17 at 21:00 Metoprolol Tartrate (Lopressor) 5 mg Q4 PRN IV NOTE; Start 01/10/17 at 17:00 Ascorbic Acid (Vitamin C) 500 mg DAILY GTB Last administered on 01/19/17 09:16 ; Admin Dose 500 MG; Start 01/11/17 at 09:00 Diphenhydramine HCl (Benadryl) 25 mg Q6H PRN IV Agitation Last administered on 01/17/17 20:22; Admin Dose 25 MG; Start 01/10/17 at 17:30 Multivitamins 30 ml 30 ml DAILY GTB Last administered on 01/19/17 09:16; Admin Dose 30 ML; Start 01/11/17 at 09:00 Sodium Chloride (NS) 1,000 ml @ 30 mls/hr Q24H IV Last administered on 14:37; Admin Dose 30 MLS/HR; Start 01/10/17 at 18:30 Acetaminophen (Tylenol Liquid) 650 mg Q6H PRN GTB FOR FEVER T>101 Last administered on 01/19/17 15:38; Admin Dose 650 MG; Start 01/10/17 at 18:30 Guaifenesin/ Codeine Phosphate 5 ml 5 ml Q4H PRN PO COUGH Last administered on 01/18/17 05:25; Admin Dose 5 ML; Start 01/17/17 at 12:00 Cefepime HCl (Maxipime 2gm/50 ml (Pmx)) 50 ml @ 100 mls/hr Q8 IVPB Last administered on 01/19/17 14:35; Admin Dose 100 MLS/HR; Start 01/17/17 at 22:00 Quetiapine Fumarate (Seroquel) 50 mg Q6 PO Last administered on 01/19/17 17:43 ; Admin Dose 50 MG; Start 01/18/17 at 00:00 Haloperidol (Haldol) 5 mg Q6H PRN IM AGITATION Last administered on 01/17/17 22:35; Admin Dose 5 MG; Start 01/17/17 at 22:30 Assessment/Plan Additional Assessment/Plan IMP: 1. Vent dependent respiratory failure. 2. History of fibrotic lung disease. 3. Anemia PLAN: 1. Continue vent support. 2. consider transfuse 1 unit PRBC 3. am labs GAVIN CM MD Jan 19, 2017 18:15
--- NOTE | 2017-01-19 20:57 | CONS ---
Date/Time of Note Date/Time of Note DATE: 01/19/17 TIME: 20:52 Assessment/Plan Assessment/Plan Chief Complaint/Hosp Course assessment/impression - recurrent fever - sepsis vs. 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 coli - recurrent thrush - underlying pulmonary fibrosis - labial herpes - VDRF s/p trach 10/09/2016 - s/p recurrent sepsis due to HCAP and UTI - h/o HCAP due to MDR acinetobacter and ESBL E. Coli - dysphagia s/p PEG placement 10/09/2016 - erythroderma of unclear etiology in 11/2016, resolved - h/o CARLOS - h/o recurrent UTI due to ESBL E. Coli - h/o funguria - h/o bacteremia 10/28/2016 due to enterococcus faecium. Midline was dc'd - h/o bacteremia 12/21/2016 due to enterococcus faecalis - s/p severe sepsis due to UTI, prob aspiration after hematemesis and multiple intubation events, and HCAP - s/p acute UGIB of unclear etiology; s/p EGD 10/01/2016 showing no active bleeding site - HLD and fatty liver - h/o alcoholism - chronic diastolic HF - diverticulosis, seen on CT at [facility] - severe protein calorie malnutrition - h/o fall and trauma to R foot recommendations: - ordered: blood cultures x2, resp culture, urinalysis, urine culture, CXR - change cefepime to meropenem (01/19/2017-) - continue neb tobramycin (01/17/2017-), ordered for 10 days - add IV caspofungin (01/18/2017-) for empiric treatment of invasive candidiasis. Pt also has thrush. Not fluconazole due to its interaction with quetiapine - continue pGT acyclovir for labial herpes infection (01/17/2017-), ordered for 7 days management d/w Pt and his RN Problems: Consultation Date/Type/Reason Admit Date/Time Jan 09, 2017 at 18:37 Initial Consult Date 01/10/17 Type of Consultation: ID Referring Provider: MATTHEW CALDERON MD 24 HR Interval Summary Free Text/Dictation had temp >102F today Subjective hx not possible: pt non-verbal Exam/Review of Systems Vital Signs Vitals Vital Signs Date Time Temp Pulse Resp B/P Pulse Ox O2 Delivery O2 Flow Rate FiO2 01/19/17 19:53 98.6 99 17 85/47 98 01/19/17 17:10 45 01/19/17 04:00 Mechanical Ventilator Intake and Output 01/18/17 01/18/17 01/19/17 15:00 23:00 07:00 Intake Total 50 ml 1350 ml 1250 ml Output Total 800 ml 600 ml Balance 50 ml 550 ml 650 ml Exam Constitutional: frail, non-verbal Psych: confusion Head: atraumatic, normocephalic Eyes: nl conjunctiva, nl lids ENMT: nl external ears & nose, other (herpetic lesion on the lower lip, thrush) Neck: other (trach) Respiratory: crackles/rales Cardiovascular: nl pulses, regular rate and rhythm Gastrointestinal: non-tender, other (GT), soft, No distended, No tender Musculoskeletal: nl extremities to inspection Extremities: No edema Neurological: confused, lethargic Results Result Diagram: 01/19/17 0525 01/19/17 0525 Results 24 hrs Laboratory Tests Test 01/19/17 05:25 White Blood Count 11.1 H Red Blood Count 2.61 #L Hemoglobin 7.6 L Hematocrit 24.1 #L Mean Corpuscular Volume 92.3 Mean Corpuscular Hemoglobin 29.1 Mean Corpuscular Hemoglobin Concent 31.5 L Red Cell Distribution Width 17.7 H Platelet Count 279 # Mean Platelet Volume 10.8 H Neutrophils % 80.1 H Lymphocytes % 9.5 L Monocytes % 5.1 Eosinophils % 4.4 Basophils % 0.5 Nucleated Red Blood Cells % 0.0 Neutrophils # (Manual) 8.9 H Lymphocytes # 1.1 Monocytes # 0.6 Eosinophils # 0.5 Basophils # 0.1 Nucleated Red Blood Cells # 0.0 Sodium Level 133 L Potassium Level 4.3 Chloride Level 89 L Carbon Dioxide Level 38 H Anion Gap 10 Blood Urea Nitrogen 27 H Creatinine 0.53 L Glucose Level 108 Calcium Level 9.2 Medications Medications Current Medications Ondansetron HCl (Zofran Inj) 4 mg Q6H PRN IV NAUSEA AND/OR VOMITING; Start at 22:00 Acetaminophen (Tylenol Tab) 650 mg Q6H PRN PO PAIN LEVEL 1-3 OR FEVER Last administered on 01/10/17 15:46; Admin Dose 650 MG; Start 01/09/17 at 22:00 Morphine Sulfate (morphine) 2 mg Q4H PRN IV PAIN LEVEL 7-10 Last administered on 01/18/17 21:46; Admin Dose 2 MG; Start 01/09/17 at 22:00 Clonidine (Catapres) 0.1 mg Q6 GTB Last administered on 01/19/17 12:11; Admin Dose 0.1 MG; Start 01/10/17 at 18:00 Diphenhydramine HCl (Benadryl) 25 mg Q6H PRN GTB ITCHING Last administered on 20:54; Admin Dose 25 MG; Start 01/10/17 at 17:00 Folic Acid (Folic Acid) 1 mg DAILY GTB Last administered on 01/19/17 09:16; Admin Dose 1 MG; Start 01/11/17 at 09:00 Acetaminophen/ Hydrocodone Bitart ([place] (5/325)) 1 tab Q4H PRN GTB PAIN LEVEL 4-10/10 Last administered on 01/17/17 18:49; Admin Dose 1 TAB; Start 01/10/17 at 17:00 Lactobacillus Acidophilus (Florajen3 Capsule) 3 each TID PEG Last administered on 01/19/17 12:12; Admin Dose 3 EACH; Start 01/10/17 at 21:00 Lansoprazole (Prevacid) 30 mg DAILY GTB Last administered on 01/19/17 09:16; Admin Dose 30 MG; Start 01/11/17 at 09:00 Metoprolol Tartrate (Lopressor) 50 mg BID GTB Last administered on 01/19/17 09 :16; Admin Dose 50 MG; Start 01/10/17 at 21:00 Oxcarbazepine (Trileptal) 300 mg BID GTB Last administered on 01/19/17 09:16; Admin Dose 300 MG; Start 01/10/17 at 21:00 Metoprolol Tartrate (Lopressor) 5 mg Q4 PRN IV NOTE; Start 01/10/17 at 17:00 Ascorbic Acid (Vitamin C) 500 mg DAILY GTB Last administered on 01/19/17 09:16 ; Admin Dose 500 MG; Start 01/11/17 at 09:00 Diphenhydramine HCl (Benadryl) 25 mg Q6H PRN IV Agitation Last administered on 01/17/17 20:22; Admin Dose 25 MG; Start 01/10/17 at 17:30 Multivitamins 30 ml 30 ml DAILY GTB Last administered on 01/19/17 09:16; Admin Dose 30 ML; Start 01/11/17 at 09:00 Sodium Chloride (NS) 1,000 ml @ 30 mls/hr Q24H IV Last administered on 14:37; Admin Dose 30 MLS/HR; Start 01/10/17 at 18:30 Acetaminophen (Tylenol Liquid) 650 mg Q6H PRN GTB FOR FEVER T>101 Last administered on 01/19/17 15:38; Admin Dose 650 MG; Start 01/10/17 at 18:30 Guaifenesin/ Codeine Phosphate 5 ml 5 ml Q4H PRN PO COUGH Last administered on 01/18/17 05:25; Admin Dose 5 ML; Start 01/17/17 at 12:00 Cefepime HCl (Maxipime 2gm/50 ml (Pmx)) 50 ml @ 100 mls/hr Q8 IVPB Last administered on 01/19/17 14:35; Admin Dose 100 MLS/HR; Start 01/17/17 at 22:00 Quetiapine Fumarate (Seroquel) 50 mg Q6 PO Last administered on 01/19/17 17:43 ; Admin Dose 50 MG; Start 01/18/17 at 00:00 Haloperidol (Haldol) 5 mg Q6H PRN IM AGITATION Last administered on 01/17/17 22:35; Admin Dose 5 MG; Start 01/17/17 at 22:30 MADISON PIERRE M.D. Jan 19, 2017 20:57
[2017-01-19] MEDS ORDERED: CASPOFUNGIN 70 MG in SOD CHLORIDE 0.9% 250 ML IVPB ONE (21:00)
[2017-01-19] MEDS: morphine 2 MG INJ IV PRN (21:45)
--- NOTE | 2017-01-19 22:20 | RADRPT ---
PROCEDURE: CHEST - 1 VIEW CLINICAL INDICATION: 71-year-old male with shortness of breath. TECHNIQUE: A single frontal AP portable view of the chest was performed. The images were reviewed on a PACS workstation. COMPARISON: Chest x-ray January 10, 2017; chest x-ray January 09, 2017; CT abdomen/pelvis December 22 017; chest x-ray December 21, 2016. FINDINGS: There is a tracheostomy tube in place. The cardiomediastinal silhouette is mildly enlarged. Again noted are extensive chronic interstitial lung fibrosis similar appearance to the patient's prior davon dy. No definite focal area of consolidation is noted. There is no evidence for congestive heart arnold lure. There is no evidence for pneumothorax. The osseous structures are intact. IMPRESSION: 1. Tracheostomy tube. 2. Cardiomegaly. 3. Extensive chronic interstitial fibrosis without significant interval change. .Vincent Rod MD, MD Date Time Electronically viewed and signed by .Vincent Rod MD, on 01/19/2017 22:19 .M/
[2017-01-20] VITALS (26 sets, daily range): BP systolic 91–119; BP diastolic 51–66; PULSE 78–102; RESP 17–31
[2017-01-20] MEDS: QUETIAPINE 25 MG TAB PO SCH ×3 (01:18→12:50)
[2017-01-20] MEDS: MEROPENEM 1 GM/50ML(PMX) 50 ML IVPB SCH ×4 (01:19→22:37)
[2017-01-20] MEDS: IPRATROPIUM (HFA) 12.9 GM INHALER INH SCH ×6 (01:37→20:45)
[2017-01-20] MEDS: ALBUTEROL 18 GM INHALER INH SCH ×6 (01:38→21:53)
[2017-01-20 07:07] LABS: BASOPHILS % 0.3 % (0.0-2.0); EOSINOPHILS # 0.3 10^3/ul (0.0-0.5); EOSINOPHILS % 2.7 % (0.0-7.0); HEMATOCRIT 23.3 % (42.0-52.0); HEMOGLOBIN 7.3 g/dl (14.0-18.0); LYMPHOCYTES % 9.7 % (15.0-51.0); MEAN CORPUSCULAR HEMOGLOBIN 28.6 pg (29.0-33.0); MEAN CORPUSCULAR HGB CONC 31.3 g/dl (32.0-37.0); MEAN CORPUSCULAR VOLUME 91.4 fl (82.0-101.0); MEAN PLATELET VOLUME 10.6 fl (7.4-10.4); MONOCYTE # 0.5 10^3/ul (0.3-0.9); MONOCYTES % 4.4 % (0.0-11.0); NEUTROPHILS % 82.5 % (39.0-77.0); PLATELET COUNT 283 10^3/UL (140-415); POSITIVE DIFF @See below; RED BLOOD COUNT 2.55 10^6/ul (4.70-6.10); RED CELL DISTRIBUTION WIDTH 17.7 % (11.5-14.5); WHITE BLOOD COUNT 10.6 10^3/ul (4.8-10.8)
[2017-01-20 07:40] LABS: ALBUMIN 2.6 g/dl (3.3-4.9); ALBUMIN/GLOBULIN RATIO 0.61; CALCIUM 8.9 mg/dl (8.4-10.2); CREATININE 0.59 mg/dl (0.61-1.24); POTASSIUM 3.8 mmol/L (3.5-5.1); TOTAL PROTEIN 6.8 g/dl (6.1-8.1)
[2017-01-20 07:55] LABS: ADD UMIC YES; UR ASCORBIC ACID 40 mg/dL (NEGATIVE); UR BACTERIA FEW /HPF (NONE SEEN); UR BILIRUBIN (Dip) NEGATIVE (NEGATIVE); UR BLOOD (Dip) NEGATIVE (NEGATIVE); UR BUDDING YEAST MODERATE /HPF (NONE SEEN); UR CLARITY SLIGHTLY CLOUDY (CLEAR); UR COLOR YELLOW (YELLOW); UR GLUCOSE (Dip) NEGATIVE (NEGATIVE); UR KETONES (Dip) NEGATIVE (NEGATIVE); UR LEUKOCYTE ESTERASE (Dip) 2+ Leu/ul (NEGATIVE); UR NITRITE (Dip) NEGATIVE (NEGATIVE); UR RBC 24 /HPF (0-5); UR SPECIFIC GRAVITY (Dip) 1.014 (1.003-1.030); UR TOTAL PROTEIN (Dip) 1+ mg/dl (NEGATIVE); UR UROBILINOGEN (Dip) NEGATIVE (NEGATIVE)
[2017-01-20] MEDS: TOBRAMYCIN/0.25NS 300 MG/5 ML INHAL NEB SCH ×2 (09:17→19:55)
[2017-01-20] MEDS: MULTIVITAMINS 30 ML CUP GTB SCH (09:32)
[2017-01-20] MEDS: L ACIDOPHIL/B LACTIS/B LONGUM CAPSULE PEG SCH ×3 (09:32→21:21)
[2017-01-20] MEDS: ACYCLOVIR 400 MG TAB GTB SCH ×3 (09:32→21:00)
[2017-01-20] MEDS: METOPROLOL 50 MG TAB GTB SCH ×2 (09:33→21:28)
[2017-01-20] MEDS: OXCARBAZEPINE 300 MG TAB GTB SCH ×2 (09:33→21:28)
[2017-01-20] MEDS: ASCORBIC ACID 500 MG TAB GTB SCH (09:33)
[2017-01-20] MEDS: LANSOPRAZOLE 30 MG CAP GTB SCH (09:37)
[2017-01-20] MEDS: FOLIC ACID 1 MG TAB GTB SCH (09:41)
--- NOTE | 2017-01-20 09:44 | CONS ---
Date/Time of Note Date/Time of Note DATE: 01/20/17 TIME: 09:42 Assessment/Plan Assessment/Plan Additional Assessment/Plan 1. Tachycardia - with underlying infection. Better now - in sinus at 60s currently. BETTER now - looks more comfortable on exam. 2. Heart failure. The patient has a history of congestive heart failure, does not appear to be in fluid overload. Continue to monitor closely. Diast HF , chronic. GOOD URINE OUTPUT NOW. 3. Chest pain - R/O NM, doubt ischemai. Troponins are negative.No intervention planned. STABLE. 4. Infection. Continue the patient on anti-bx. DECREASED HR now. 5. Respiratory failure. The patient is on a ventilator,continue to follow as needed. Trach care in place. 6. History of pneumonia. Continue pneumonia care per primary team. 7. Anemia. Hemoglobin is fairly stable. No evidence of bleeding now. Consultation Date/Type/Reason Admit Date/Time Jan 09, 2017 at 18:37 Initial Consult Date 01/10/17 Type of Consultation: ID Referring Provider: MATTHEW CALDERON MD 24 HR Interval Summary Free Text/Dictation No acute events, HR well controlled ROS: No fever, no chills, no nausea, no vomiting, no diarrhea/constipation No recent weight changes No chest pain, no PND, no orthopnea No dizziness, blurred vision No thirst, no heat or cold intolerance (per nurse) Exam/Review of Systems Vital Signs Vitals Vital Signs Date Time Temp Pulse Resp B/P Pulse Ox O2 Delivery O2 Flow Rate FiO2 01/20/17 08:14 98.5 103 19 118/61 100 01/20/17 07:30 45 01/19/17 04:00 Mechanical Ventilator Intake and Output 01/19/17 01/19/17 01/20/17 15:00 23:00 07:00 Intake Total 1230 ml 900 ml Output Total 800 ml 700 ml Balance 430 ml 200 ml Exam General: WN/WD/NAD, AOx more alert HEENT: Unicetric/atraumatic/EOMI (follow commands) NECK: trach Lymph: no lymphadenopathy HEART: regular with no S3, II/ systolic murmur at apex LUNGS: Coarse sounds ABD: soft, NT, ND, +BS : Intact Neuro: non focal SKIN: chronic changes EXT: trace edema Results Result Diagram: 01/20/17 0614 01/20/17 0614 Results 24 hrs Laboratory Tests Test 01/20/17 04:00 01/20/17 06:14 Urine Color YELLOW Urine Clarity SLIGHTLY CLOUDY A Urine pH 7.0 Urine Specific [place] 1.014 Urine Ketones NEGATIVE Urine Nitrite NEGATIVE Urine Bilirubin NEGATIVE Urine Urobilinogen NEGATIVE Urine Leukocyte Esterase 2+ H Urine Microscopic RBC 24 H Urine Microscopic WBC 30 H Urine Bacteria FEW A Urine Hyaline Casts FEW A Urine Yeast (Budding) MODERATE A Urine Hemoglobin NEGATIVE Urine Glucose NEGATIVE Urine Total Protein 1+ H White Blood Count 10.6 Red Blood Count 2.55 L Hemoglobin 7.3 L Hematocrit 23.3 L Mean Corpuscular Volume 91.4 Mean Corpuscular Hemoglobin 28.6 L Mean Corpuscular Hemoglobin Concent 31.3 L Red Cell Distribution Width 17.7 H Platelet Count 283 Mean Platelet Volume 10.6 H Neutrophils % 82.5 H Lymphocytes % 9.7 L Monocytes % 4.4 Eosinophils % 2.7 Basophils % 0.3 Nucleated Red Blood Cells % 0.0 Neutrophils # (Manual) 8.7 H Lymphocytes # 1.0 Monocytes # 0.5 Eosinophils # 0.3 Basophils # 0.0 Nucleated Red Blood Cells # 0.0 Sodium Level 140 Potassium Level 3.8 Chloride Level 93 L Carbon Dioxide Level 36 H Anion Gap 15 Blood Urea Nitrogen 25 H Creatinine 0.59 L Glucose Level 104 Calcium Level 8.9 Total Bilirubin 0.0 L Direct Bilirubin 0.00 Indirect Bilirubin 0.0 Aspartate Amino Transf (AST/SGOT) 66 H Alanine Aminotransferase (ALT/SGPT) 50 Alkaline Phosphatase 180 H Total Protein 6.8 Albumin 2.6 L Globulin 4.20 H Albumin/Globulin Ratio 0.61 Medications Medications Current Medications Ondansetron HCl (Zofran Inj) 4 mg Q6H PRN IV NAUSEA AND/OR VOMITING; Start at 22:00 Acetaminophen (Tylenol Tab) 650 mg Q6H PRN PO PAIN LEVEL 1-3 OR FEVER Last administered on 01/10/17 15:46; Admin Dose 650 MG; Start 01/09/17 at 22:00 Morphine Sulfate (morphine) 2 mg Q4H PRN IV PAIN LEVEL 7-10 Last administered on 01/19/17 21:45; Admin Dose 2 MG; Start 01/09/17 at 22:00 Clonidine (Catapres) 0.1 mg Q6 GTB Last administered on 01/19/17 12:11; Admin Dose 0.1 MG; Start 01/10/17 at 18:00 Diphenhydramine HCl (Benadryl) 25 mg Q6H PRN GTB ITCHING Last administered on 20:54; Admin Dose 25 MG; Start 01/10/17 at 17:00 Folic Acid (Folic Acid) 1 mg DAILY GTB Last administered on 01/19/17 09:16; Admin Dose 1 MG; Start 01/11/17 at 09:00 Acetaminophen/ Hydrocodone Bitart ([place] (5/325)) 1 tab Q4H PRN GTB PAIN LEVEL 4-10/10 Last administered on 01/17/17 18:49; Admin Dose 1 TAB; Start 01/10/17 at 17:00 Lactobacillus Acidophilus (Florajen3 Capsule) 3 each TID PEG Last administered on 01/19/17 21:46; Admin Dose 3 EACH; Start 01/10/17 at 21:00 Lansoprazole (Prevacid) 30 mg DAILY GTB Last administered on 01/19/17 09:16; Admin Dose 30 MG; Start 01/11/17 at 09:00 Metoprolol Tartrate (Lopressor) 50 mg BID GTB Last administered on 01/19/17 09 :16; Admin Dose 50 MG; Start 01/10/17 at 21:00 Oxcarbazepine (Trileptal) 300 mg BID GTB Last administered on 01/19/17 21:46; Admin Dose 300 MG; Start 01/10/17 at 21:00 Metoprolol Tartrate (Lopressor) 5 mg Q4 PRN IV NOTE; Start 01/10/17 at 17:00 Ascorbic Acid (Vitamin C) 500 mg DAILY GTB Last administered on 01/19/17 09:16 ; Admin Dose 500 MG; Start 01/11/17 at 09:00 Diphenhydramine HCl (Benadryl) 25 mg Q6H PRN IV Agitation Last administered on 01/17/17 20:22; Admin Dose 25 MG; Start 01/10/17 at 17:30 Multivitamins 30 ml 30 ml DAILY GTB Last administered on 01/19/17 09:16; Admin Dose 30 ML; Start 01/11/17 at 09:00 Sodium Chloride (NS) 1,000 ml @ 30 mls/hr Q24H IV Last administered on 14:37; Admin Dose 30 MLS/HR; Start 01/10/17 at 18:30 Acetaminophen (Tylenol Liquid) 650 mg Q6H PRN GTB FOR FEVER T>101 Last administered on 01/19/17 15:38; Admin Dose 650 MG; Start 01/10/17 at 18:30 Guaifenesin/ Codeine Phosphate (Robitussin Ac Liquid Cup) 5 ml Q4H PRN PO COUGH Last administered on 01/18/17 05:25; Admin Dose 5 ML; Start 01/17/17 at 12:00 Quetiapine Fumarate (Seroquel) 50 mg Q6 PO Last administered on 01/20/17 06:17 ; Admin Dose 50 MG; Start 01/18/17 at 00:00 Haloperidol 5 mg 5 mg Q6H PRN IM AGITATION Last administered on 01/17/17 22:35 ; Admin Dose 5 MG; Start 01/17/17 at 22:30 Meropenem/Sodium Chloride 50 ml @ 100 mls/hr Q8 IVPB Last administered on 01/20 05:24; Admin Dose 100 MLS/HR; Start 01/19/17 at 22:00 Caspofungin/ Sodium Chloride (Cancidas/NS) 250 ml @ 250 mls/hr Q24H IVPB ; Start 01/20/17 at 21:00 REED DESIR MD Jan 20, 2017 09:44
--- NOTE | 2017-01-20 11:18 | CONS ---
[facility] HCIS Consult Follow up SOAP Patient Name: Kevin Brooks Unit Number: [id number] Date of : 1945 Patient Status: Admitted Inpatient Attending Doctor: Matthew Calderon MD Edit: MADISON CHILDERS M.D. on 01/20/17 @ 15:28 Liseth attestation: I discussed the management with CARSON Brand and agree with her note. Date/Time of Note Date/Time of Note DATE: 01/20/17 TIME: 10:55 Consult Date/Type/Reason Admit Date/Time Jan 09, 2017 at 18:37 Initial Consult Date 01/10/17 Type of Consultation: INFECTIOUS DISEASE Ordering Provider: MATTHEW CALDERON MD Subjective Non-verbal Objective Vital Signs Date Time Temp Pulse Resp B/P Pulse Ox O2 Delivery O2 Flow Rate FiO2 01/20/17 09:10 108 28 99 45 01/20/17 08:14 98.5 118/61 01/19/17 04:00 Mechanical Ventilator Intake and Output 01/19/17 01/19/17 01/20/17 15:00 23:00 07:00 Intake Total 1230 ml 900 ml Output Total 800 ml 700 ml Balance 430 ml 200 ml Exam Constitutional: frail, non-verbal, Psych: calm and cooperative Head: atraumatic, normocephalic ENMT: normal external ears & nose, herpetic lesion lower lip, thrush Neck: tracheostomy in place Respiratory: Rhonchi, ventilator supported Cardiovascular: normal pulses, regular rate and rhythm Gastrointestinal: soft, non-tender, non-distended, GT in place, TF infusing Musculoskeletal: normal extremities to inspection Extremities: No edema, warm, dry, palpable pulses, IV access LFA, no e/o infection Neurological: awake, alert and tries to communicate by mouthing and pointing Results/Medications Result Diagram: 01/20/1714 01/20/1714 Results 24 hrs Laboratory Tests Test 01/20/17 04:00 01/20/17 06:14 Urine Color YELLOW Urine Clarity SLIGHTLY CLOUDY A Urine pH 7.0 Urine Specific [place] 1.014 Urine Ketones NEGATIVE Urine Nitrite NEGATIVE Urine Bilirubin NEGATIVE Urine Urobilinogen NEGATIVE Urine Leukocyte Esterase 2+ H Urine Microscopic RBC 24 H Urine Microscopic WBC 30 H Urine Bacteria FEW A Urine Hyaline Casts FEW A Urine Yeast (Budding) MODERATE A Urine Hemoglobin NEGATIVE Urine Glucose NEGATIVE Urine Total Protein 1+ H White Blood Count 10.6 Red Blood Count 2.55 L Hemoglobin 7.3 L Hematocrit 23.3 L Mean Corpuscular Volume 91.4 Mean Corpuscular Hemoglobin 28.6 L Mean Corpuscular Hemoglobin Concent 31.3 L Red Cell Distribution Width 17.7 H Platelet Count 283 Mean Platelet Volume 10.6 H Neutrophils % 82.5 H Lymphocytes % 9.7 L Monocytes % 4.4 Eosinophils % 2.7 Basophils % 0.3 Nucleated Red Blood Cells % 0.0 Neutrophils # (Manual) 8.7 H Lymphocytes # 1.0 Monocytes # 0.5 Eosinophils # 0.3 Basophils # 0.0 Nucleated Red Blood Cells # 0.0 Sodium Level 140 Potassium Level 3.8 Chloride Level 93 L Carbon Dioxide Level 36 H Anion Gap 15 Blood Urea Nitrogen 25 H Creatinine 0.59 L Glucose Level 104 Calcium Level 8.9 Total Bilirubin 0.0 L Direct Bilirubin 0.00 Indirect Bilirubin 0.0 Aspartate Amino Transf (AST/SGOT) 66 H Alanine Aminotransferase (ALT/SGPT) 50 Alkaline Phosphatase 180 H Total Protein 6.8 Albumin 2.6 L Globulin 4.20 H Albumin/Globulin Ratio 0.61 Medications Current Medications Ondansetron HCl (Zofran Inj) 4 mg Q6H PRN IV NAUSEA AND/OR VOMITING; Start at 22:00 Acetaminophen (Tylenol Tab) 650 mg Q6H PRN PO PAIN LEVEL 1-3 OR FEVER Last administered on 01/10/17 15:46; Admin Dose 650 MG; Start 01/09/17 at 22:00 Morphine Sulfate (morphine) 2 mg Q4H PRN IV PAIN LEVEL 7-10 Last administered on 01/19/17 21:45; Admin Dose 2 MG; Start 01/09/17 at 22:00 Clonidine (Catapres) 0.1 mg Q6 GTB Last administered on 01/19/17 12:11; Admin Dose 0.1 MG; Start 01/10/17 at 18:00 Diphenhydramine HCl (Benadryl) 25 mg Q6H PRN GTB ITCHING Last administered on 20:54; Admin Dose 25 MG; Start 01/10/17 at 17:00 Folic Acid (Folic Acid) 1 mg DAILY GTB Last administered on 01/20/17 09:41; Admin Dose 1 MG; Start 01/11/17 at 09:00 Acetaminophen/ Hydrocodone Bitart ([place] (5/325)) 1 tab Q4H PRN GTB PAIN LEVEL 4-10/10 Last administered on 01/17/17 18:49; Admin Dose 1 TAB; Start 01/10/17 at 17:00 Lactobacillus Acidophilus (Florajen3 Capsule) 3 each TID PEG Last administered on 01/20/17 09:32; Admin Dose 3 EACH; Start 01/10/17 at 21:00 Lansoprazole (Prevacid) 30 mg DAILY GTB Last administered on 01/20/17 09:37; Admin Dose 30 MG; Start 01/11/17 at 09:00 Metoprolol Tartrate (Lopressor) 50 mg BID GTB Last administered on 01/20/17 09 :33; Admin Dose 50 MG; Start 01/10/17 at 21:00 Oxcarbazepine (Trileptal) 300 mg BID GTB Last administered on 01/20/17 09:33; Admin Dose 300 MG; Start 01/10/17 at 21:00 Metoprolol Tartrate (Lopressor) 5 mg Q4 PRN IV NOTE; Start 01/10/17 at 17:00 Ascorbic Acid (Vitamin C) 500 mg DAILY GTB Last administered on 01/20/17 09:33 ; Admin Dose 500 MG; Start 01/11/17 at 09:00 Diphenhydramine HCl (Benadryl) 25 mg Q6H PRN IV Agitation Last administered on 01/17/17 20:22; Admin Dose 25 MG; Start 01/10/17 at 17:30 Multivitamins 30 ml 30 ml DAILY GTB Last administered on 01/20/17 09:32; Admin Dose 30 ML; Start 01/11/17 at 09:00 Sodium Chloride (NS) 1,000 ml @ 30 mls/hr Q24H IV Last administered on 14:37; Admin Dose 30 MLS/HR; Start 01/10/17 at 18:30 Acetaminophen (Tylenol Liquid) 650 mg Q6H PRN GTB FOR FEVER T>101 Last administered on 01/19/17 15:38; Admin Dose 650 MG; Start 01/10/17 at 18:30 Guaifenesin/ Codeine Phosphate (Robitussin Ac Liquid Cup) 5 ml Q4H PRN PO COUGH Last administered on 01/18/17 05:25; Admin Dose 5 ML; Start 01/17/17 at 12:00 Quetiapine Fumarate (Seroquel) 50 mg Q6 PO Last administered on 01/20/17 06:17 ; Admin Dose 50 MG; Start 01/18/17 at 00:00 Haloperidol 5 mg 5 mg Q6H PRN IM AGITATION Last administered on 01/17/17 22:35 ; Admin Dose 5 MG; Start 01/17/17 at 22:30 Meropenem/Sodium Chloride 50 ml @ 100 mls/hr Q8 IVPB Last administered on 01/20 05:24; Admin Dose 100 MLS/HR; Start 01/19/17 at 22:00 Caspofungin/ Sodium Chloride (Cancidas/NS) 250 ml @ 250 mls/hr Q24H IVPB ; Start 01/20/17 at 21:00 Assessment/Plan Chief Complaint/Hosp Course Assessment/impression - recurrent fever - sepsis vs. 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 coli - recurrent thrush - underlying pulmonary fibrosis - labial herpes - VDRF s/p trach 10/09/2016 - s/p recurrent sepsis due to HCAP and UTI - h/o HCAP due to MDR acinetobacter and ESBL E. Coli - dysphagia s/p PEG placement 10/09/2016 - erythroderma of unclear etiology in 11/2016, resolved - h/o CARLOS - h/o recurrent UTI due to ESBL E. Coli - h/o funguria - h/o bacteremia 10/28/2016 due to enterococcus faecium. Midline was dc'd - h/o bacteremia 12/21/2016 due to enterococcus faecalis - s/p severe sepsis due to UTI, prob aspiration after hematemesis and multiple intubation events, and HCAP - s/p acute UGIB of unclear etiology; s/p EGD 10/01/2016 showing no active bleeding site - HLD and fatty liver - h/o alcoholism - chronic diastolic HF - diverticulosis, seen on CT at [facility] - severe protein calorie malnutrition - h/o fall and trauma to R foot - Pancultured last night, awaiting results Recommendations: - ordered: blood cultures x2, resp culture, urinalysis, urine culture, CXR - change cefepime to meropenem (01/19/2017-) - continue neb tobramycin (01/17/2017-), ordered for 10 days - add IV caspofungin (01/18/2017-) for empiric treatment of invasive candidiasis. Pt also has thrush. Not fluconazole due to its interaction with quetiapine - continue pGT acyclovir for labial herpes infection (01/17/2017-), ordered for 7 days - CBC in am Care and management discussed with patient's spouse with the use of a Namibian speaking dry transfer worker (Rae), nurse Bety and DR. Childers Problems: Additional Assessment/Plan 01/19/17 CXR - Tracheostomy tube. - Cardiomegaly. - Extensive chronic interstitial fibrosis without significant interval change. SIS BRAND Jan 20, 2017 11:05
[2017-01-20] MEDS ORDERED: LOPERAMIDE LIQUID CUP 1 MG/5 ML CUP GTB PRN (13:00)
[2017-01-20] MEDS: SOD CHLORIDE 0.9% 1,000 ML IV SCH (14:21)
[2017-01-20] MEDS: ACETAMINOPHEN 650MG/20.3ML CUP GTB PRN (15:22)
--- NOTE | 2017-01-20 19:30 | CONS ---
Date/Time of Note Date/Time of Note DATE: 01/20/17 TIME: 19:29 Consult Date/Type/Reason Admit Date/Time Jan 09, 2017 at 18:37 Initial Consult Date 01/10/17 Type of Consultation: Pulm Ordering Provider: MATTHEW CALDERON MD Subjective No events on vent Objective Vital Signs Date Time Temp Pulse Resp B/P Pulse Ox O2 Delivery O2 Flow Rate FiO2 01/20/17 17:10 75 28 99 45 01/20/17 15:34 98.7 96/51 01/19/17 04:00 Mechanical Ventilator Intake and Output 01/19/17 01/19/17 01/20/17 15:00 23:00 07:00 Intake Total 1230 ml 900 ml Output Total 800 ml 700 ml Balance 430 ml 200 ml Exam HEENT: Neck supple; no JVD; no LAD, + trach CVS: RRR, S1 and S2 CHEST: Bibasilar rales ABD: Soft, NT, + BS EXT: No c/c/e Results/Medications Result Diagram: 01/20/17 0614 01/20/17 0614 Results 24 hrs Laboratory Tests Test 01/20/17 04:00 01/20/17 06:14 Urine Color YELLOW Urine Clarity SLIGHTLY CLOUDY A Urine pH 7.0 Urine Specific [place] 1.014 Urine Ketones NEGATIVE Urine Nitrite NEGATIVE Urine Bilirubin NEGATIVE Urine Urobilinogen NEGATIVE Urine Leukocyte Esterase 2+ H Urine Microscopic RBC 24 H Urine Microscopic WBC 30 H Urine Bacteria FEW A Urine Hyaline Casts FEW A Urine Yeast (Budding) MODERATE A Urine Hemoglobin NEGATIVE Urine Glucose NEGATIVE Urine Total Protein 1+ H White Blood Count 10.6 Red Blood Count 2.55 L Hemoglobin 7.3 L Hematocrit 23.3 L Mean Corpuscular Volume 91.4 Mean Corpuscular Hemoglobin 28.6 L Mean Corpuscular Hemoglobin Concent 31.3 L Red Cell Distribution Width 17.7 H Platelet Count 283 Mean Platelet Volume 10.6 H Neutrophils % 82.5 H Lymphocytes % 9.7 L Monocytes % 4.4 Eosinophils % 2.7 Basophils % 0.3 Nucleated Red Blood Cells % 0.0 Neutrophils # (Manual) 8.7 H Lymphocytes # 1.0 Monocytes # 0.5 Eosinophils # 0.3 Basophils # 0.0 Nucleated Red Blood Cells # 0.0 Sodium Level 140 Potassium Level 3.8 Chloride Level 93 L Carbon Dioxide Level 36 H Anion Gap 15 Blood Urea Nitrogen 25 H Creatinine 0.59 L Glucose Level 104 Calcium Level 8.9 Total Bilirubin 0.0 L Direct Bilirubin 0.00 Indirect Bilirubin 0.0 Aspartate Amino Transf (AST/SGOT) 66 H Alanine Aminotransferase (ALT/SGPT) 50 Alkaline Phosphatase 180 H Total Protein 6.8 Albumin 2.6 L Globulin 4.20 H Albumin/Globulin Ratio 0.61 Medications Current Medications Ondansetron HCl (Zofran Inj) 4 mg Q6H PRN IV NAUSEA AND/OR VOMITING; Start at 22:00 Acetaminophen (Tylenol Tab) 650 mg Q6H PRN PO PAIN LEVEL 1-3 OR FEVER Last administered on 01/10/17 15:46; Admin Dose 650 MG; Start 01/09/17 at 22:00 Morphine Sulfate (morphine) 2 mg Q4H PRN IV PAIN LEVEL 7-10 Last administered on 01/19/17 21:45; Admin Dose 2 MG; Start 01/09/17 at 22:00 Clonidine (Catapres) 0.1 mg Q6 GTB Last administered on 01/19/17 12:11; Admin Dose 0.1 MG; Start 01/10/17 at 18:00 Diphenhydramine HCl (Benadryl) 25 mg Q6H PRN GTB ITCHING Last administered on 20:54; Admin Dose 25 MG; Start 01/10/17 at 17:00 Folic Acid (Folic Acid) 1 mg DAILY GTB Last administered on 01/20/17 09:41; Admin Dose 1 MG; Start 01/11/17 at 09:00 Acetaminophen/ Hydrocodone Bitart ([place] (5/325)) 1 tab Q4H PRN GTB PAIN LEVEL 4-10/10 Last administered on 01/17/17 18:49; Admin Dose 1 TAB; Start 01/10/17 at 17:00 Lactobacillus Acidophilus (Florajen3 Capsule) 3 each TID PEG Last administered on 01/20/17 12:50; Admin Dose 3 EACH; Start 01/10/17 at 21:00 Lansoprazole (Prevacid) 30 mg DAILY GTB Last administered on 01/20/17 09:37; Admin Dose 30 MG; Start 01/11/17 at 09:00 Metoprolol Tartrate (Lopressor) 50 mg BID GTB Last administered on 01/20/17 09 :33; Admin Dose 50 MG; Start 01/10/17 at 21:00 Oxcarbazepine (Trileptal) 300 mg BID GTB Last administered on 01/20/17 09:33; Admin Dose 300 MG; Start 01/10/17 at 21:00 Metoprolol Tartrate (Lopressor) 5 mg Q4 PRN IV NOTE; Start 01/10/17 at 17:00 Ascorbic Acid (Vitamin C) 500 mg DAILY GTB Last administered on 01/20/17 09:33 ; Admin Dose 500 MG; Start 01/11/17 at 09:00 Diphenhydramine HCl (Benadryl) 25 mg Q6H PRN IV Agitation Last administered on 01/17/17 20:22; Admin Dose 25 MG; Start 01/10/17 at 17:30 Multivitamins 30 ml 30 ml DAILY GTB Last administered on 01/20/17 09:32; Admin Dose 30 ML; Start 01/11/17 at 09:00 Sodium Chloride (NS) 1,000 ml @ 30 mls/hr Q24H IV Last administered on 14:37; Admin Dose 30 MLS/HR; Start 01/10/17 at 18:30 Acetaminophen (Tylenol Liquid) 650 mg Q6H PRN GTB FOR FEVER T>101 Last administered on 01/20/17 15:22; Admin Dose 650 MG; Start 01/10/17 at 18:30 Guaifenesin/ Codeine Phosphate (Robitussin Ac Liquid Cup) 5 ml Q4H PRN PO COUGH Last administered on 01/18/17 05:25; Admin Dose 5 ML; Start 01/17/17 at 12:00 Quetiapine Fumarate (Seroquel) 50 mg Q6 PO Last administered on 01/20/17 12:50 ; Admin Dose 50 MG; Start 01/18/17 at 00:00 Haloperidol 5 mg 5 mg Q6H PRN IM AGITATION Last administered on 01/17/17 22:35 ; Admin Dose 5 MG; Start 01/17/17 at 22:30 Meropenem/Sodium Chloride 50 ml @ 100 mls/hr Q8 IVPB Last administered on 01/20 14:21; Admin Dose 100 MLS/HR; Start 01/19/17 at 22:00 Caspofungin/ Sodium Chloride (Cancidas/NS) 250 ml @ 250 mls/hr Q24H IVPB ; Start 01/20/17 at 21:00 Loperamide HCl (Imodium Cap) 2 mg Q6H PRN GTB DIARRHEA; Start 01/20/17 at 16:30 Assessment/Plan Additional Assessment/Plan IMP: 1. Vent dependent respiratory failure 2. History of fibrotic lung disease 3. Anemia RECS: 1. Continue vent support. 2. consider transfuse 1 unit PRBC 3. Am labs GAVIN CM MD Jan 20, 2017 19:30
[2017-01-20] MEDS: morphine 2 MG INJ IV PRN (20:19)
--- NOTE | 2017-01-20 20:21 | PN ---
Date/Time of Note Date/Time of Note DATE: 01/20/17 TIME: 20:20 Assessment/Plan VTE Prophylaxis VTE Prophylaxis Intervention: other Lines/Catheters IV C[facility]ter Type (from [facility] Peripheral IV Urinary Cath still in place: Yes Reason Cath still needed: urinary retention Assessment/Plan Assessment/Plan - Possible recurrent sepsis. - Dr. Laguerre is following infection disease consultation. Continue antibiotics per ID. - Pulmonary fibrosis. - Ventilatory dependent respiratory failure with tracheostomy. Dr. Souza is following in pulmonology consultation. - Chronic diastolic congestive heart failure. - Dysphagia with PEG. - Fatty liver. - Anemia, stool for OB is negative, continue to monitor H&H. Further recommendations based on clinical course. Plan of care discussed with Dr. Austin Subjective 24 Hr Interval Summary Free Text/Dictation alert, awake, follows simple commands.afebrile, dw staff- no new issues reported. Constitutional: requiring IVF, requiring O2 Respiratory: no complaints Cardiovascular: no complaints Gastrointestinal: no complaints Exam/Review of Systems Vital Signs Vitals Vital Signs Date Time Temp Pulse Resp B/P Pulse Ox O2 Delivery O2 Flow Rate FiO2 01/20/17 20:11 98.2 80 17 101/56 99 01/20/17 17:10 45 01/19/17 04:00 Mechanical Ventilator Intake and Output 01/19/17 01/19/17 01/20/17 15:00 23:00 07:00 Intake Total 1230 ml 900 ml Output Total 800 ml 700 ml Balance 430 ml 200 ml Exam Constitutional: alert, well developed Respiratory: clear to auscultation, normal air movement Cardiovascular: nl pulses, regular rate and rhythm Gastrointestinal: non-tender, soft Musculoskeletal: nl extremities to inspection Extremities: normal pulses Neurological: other (alert, awake, follows simple commands.) Results Result Diagram: 01/20/17 0614 01/20/17 0614 Results 24 hrs Laboratory Tests Test 01/20/17 04:00 01/20/17 06:14 Urine Color YELLOW Urine Clarity SLIGHTLY CLOUDY A Urine pH 7.0 Urine Specific [place] 1.014 Urine Ketones NEGATIVE Urine Nitrite NEGATIVE Urine Bilirubin NEGATIVE Urine Urobilinogen NEGATIVE Urine Leukocyte Esterase 2+ H Urine Microscopic RBC 24 H Urine Microscopic WBC 30 H Urine Bacteria FEW A Urine Hyaline Casts FEW A Urine Yeast (Budding) MODERATE A Urine Hemoglobin NEGATIVE Urine Glucose NEGATIVE Urine Total Protein 1+ H White Blood Count 10.6 Red Blood Count 2.55 L Hemoglobin 7.3 L Hematocrit 23.3 L Mean Corpuscular Volume 91.4 Mean Corpuscular Hemoglobin 28.6 L Mean Corpuscular Hemoglobin Concent 31.3 L Red Cell Distribution Width 17.7 H Platelet Count 283 Mean Platelet Volume 10.6 H Neutrophils % 82.5 H Lymphocytes % 9.7 L Monocytes % 4.4 Eosinophils % 2.7 Basophils % 0.3 Nucleated Red Blood Cells % 0.0 Neutrophils # (Manual) 8.7 H Lymphocytes # 1.0 Monocytes # 0.5 Eosinophils # 0.3 Basophils # 0.0 Nucleated Red Blood Cells # 0.0 Sodium Level 140 Potassium Level 3.8 Chloride Level 93 L Carbon Dioxide Level 36 H Anion Gap 15 Blood Urea Nitrogen 25 H Creatinine 0.59 L Glucose Level 104 Calcium Level 8.9 Total Bilirubin 0.0 L Direct Bilirubin 0.00 Indirect Bilirubin 0.0 Aspartate Amino Transf (AST/SGOT) 66 H Alanine Aminotransferase (ALT/SGPT) 50 Alkaline Phosphatase 180 H Total Protein 6.8 Albumin 2.6 L Globulin 4.20 H Albumin/Globulin Ratio 0.61 Medications Medications Current Medications Ondansetron HCl (Zofran Inj) 4 mg Q6H PRN IV NAUSEA AND/OR VOMITING; Start at 22:00 Acetaminophen (Tylenol Tab) 650 mg Q6H PRN PO PAIN LEVEL 1-3 OR FEVER Last administered on 01/10/17 15:46; Admin Dose 650 MG; Start 01/09/17 at 22:00 Morphine Sulfate (morphine) 2 mg Q4H PRN IV PAIN LEVEL 7-10 Last administered on 01/20/17 20:19; Admin Dose 2 MG; Start 01/09/17 at 22:00 Clonidine (Catapres) 0.1 mg Q6 GTB Last administered on 01/19/17 12:11; Admin Dose 0.1 MG; Start 01/10/17 at 18:00 Diphenhydramine HCl (Benadryl) 25 mg Q6H PRN GTB ITCHING Last administered on 20:54; Admin Dose 25 MG; Start 01/10/17 at 17:00 Folic Acid (Folic Acid) 1 mg DAILY GTB Last administered on 01/20/17 09:41; Admin Dose 1 MG; Start 01/11/17 at 09:00 Acetaminophen/ Hydrocodone Bitart ([place] (5/325)) 1 tab Q4H PRN GTB PAIN LEVEL 4-10/10 Last administered on 01/17/17 18:49; Admin Dose 1 TAB; Start 01/10/17 at 17:00 Lactobacillus Acidophilus (Florajen3 Capsule) 3 each TID PEG Last administered on 01/20/17 12:50; Admin Dose 3 EACH; Start 01/10/17 at 21:00 Lansoprazole (Prevacid) 30 mg DAILY GTB Last administered on 01/20/17 09:37; Admin Dose 30 MG; Start 01/11/17 at 09:00 Metoprolol Tartrate (Lopressor) 50 mg BID GTB Last administered on 01/20/17 09 :33; Admin Dose 50 MG; Start 01/10/17 at 21:00 Oxcarbazepine (Trileptal) 300 mg BID GTB Last administered on 01/20/17 09:33; Admin Dose 300 MG; Start 01/10/17 at 21:00 Metoprolol Tartrate (Lopressor) 5 mg Q4 PRN IV NOTE; Start 01/10/17 at 17:00 Ascorbic Acid (Vitamin C) 500 mg DAILY GTB Last administered on 01/20/17 09:33 ; Admin Dose 500 MG; Start 01/11/17 at 09:00 Diphenhydramine HCl (Benadryl) 25 mg Q6H PRN IV Agitation Last administered on 01/17/17 20:22; Admin Dose 25 MG; Start 01/10/17 at 17:30 Multivitamins 30 ml 30 ml DAILY GTB Last administered on 01/20/17 09:32; Admin Dose 30 ML; Start 01/11/17 at 09:00 Sodium Chloride (NS) 1,000 ml @ 30 mls/hr Q24H IV Last administered on 14:37; Admin Dose 30 MLS/HR; Start 01/10/17 at 18:30 Acetaminophen (Tylenol Liquid) 650 mg Q6H PRN GTB FOR FEVER T>101 Last administered on 01/20/17 15:22; Admin Dose 650 MG; Start 01/10/17 at 18:30 Guaifenesin/ Codeine Phosphate (Robitussin Ac Liquid Cup) 5 ml Q4H PRN PO COUGH Last administered on 01/18/17 05:25; Admin Dose 5 ML; Start 01/17/17 at 12:00 Quetiapine Fumarate (Seroquel) 50 mg Q6 PO Last administered on 01/20/17 12:50 ; Admin Dose 50 MG; Start 01/18/17 at 00:00 Haloperidol 5 mg 5 mg Q6H PRN IM AGITATION Last administered on 01/17/17 22:35 ; Admin Dose 5 MG; Start 01/17/17 at 22:30 Meropenem/Sodium Chloride 50 ml @ 100 mls/hr Q8 IVPB Last administered on 01/20 14:21; Admin Dose 100 MLS/HR; Start 01/19/17 at 22:00 Caspofungin/ Sodium Chloride (Cancidas/NS) 250 ml @ 250 mls/hr Q24H IVPB ; Start 01/20/17 at 21:00 Loperamide HCl (Imodium Cap) 2 mg Q6H PRN GTB DIARRHEA; Start 01/20/17 at 16:30 CHARITY DUKE Jan 20, 2017 20:21
[2017-01-20] MEDS ORDERED: CASPOFUNGIN 50 MG in SOD CHLORIDE 0.9% 250 ML IVPB SCH (21:00)
--- NOTE | 2017-01-20 23:05 | CONS ---
Date/Time of Note Date/Time of Note DATE: 01/20/17 TIME: 23:02 Assessment/Plan Assessment/Plan Chief Complaint/Hosp Course assessment/impression - recurrent fever - sepsis vs. 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 coli - recurrent thrush - underlying pulmonary fibrosis - labial herpes - rash/erythroderma to caspofungin according to Pt's RN on 01/20/2017 - VDRF s/p trach 10/09/2016 - s/p recurrent sepsis due to HCAP and UTI - h/o HCAP due to MDR acinetobacter and ESBL E. Coli - dysphagia s/p PEG placement 10/09/2016 - erythroderma of unclear etiology in 11/2016, resolved - h/o CARLOS - h/o recurrent UTI due to ESBL E. Coli - h/o funguria - h/o bacteremia 10/28/2016 due to enterococcus faecium. Midline was dc'd - h/o bacteremia 12/21/2016 due to enterococcus faecalis - s/p severe sepsis due to UTI, prob aspiration after hematemesis and multiple intubation events, and HCAP - s/p acute UGIB of unclear etiology; s/p EGD 10/01/2016 showing no active bleeding site - HLD and fatty liver - h/o alcoholism - chronic diastolic HF - diverticulosis, seen on CT at [facility] - severe protein calorie malnutrition - h/o fall and trauma to R foot recommendations: - pending results: blood cultures x2, resp culture, urine culture - continue empiric meropenem (01/19/2017-) - continue neb tobramycin (01/17/2017-), ordered for 10 days - due to reported rash, d/c IV caspofungin (01/18/2017-). Not fluconazole due to its interaction with quetiapine. will use nystatin if thrush persists. - continue pGT acyclovir for labial herpes infection (01/17/2017-), ordered for 7 days management d/w Pt's RN Problems: Consultation Date/Type/Reason Admit Date/Time Jan 09, 2017 at 18:37 Initial Consult Date 01/10/17 Type of Consultation: ID Referring Provider: MATTHEW CALDERON MD Exam/Review of Systems Vital Signs Vitals Vital Signs Date Time Temp Pulse Resp B/P Pulse Ox O2 Delivery O2 Flow Rate FiO2 01/20/17 20:11 98.2 80 17 101/56 99 01/20/17 17:10 45 01/19/17 04:00 Mechanical Ventilator Intake and Output 01/19/17 01/19/17 01/20/17 15:00 23:00 07:00 Intake Total 1230 ml 900 ml Output Total 800 ml 700 ml Balance 430 ml 200 ml Results Result Diagram: 01/20/17 0614 01/20/17 0614 Results 24 hrs Laboratory Tests Test 01/20/17 04:00 01/20/17 06:14 Urine Color YELLOW Urine Clarity SLIGHTLY CLOUDY A Urine pH 7.0 Urine Specific [place] 1.014 Urine Ketones NEGATIVE Urine Nitrite NEGATIVE Urine Bilirubin NEGATIVE Urine Urobilinogen NEGATIVE Urine Leukocyte Esterase 2+ H Urine Microscopic RBC 24 H Urine Microscopic WBC 30 H Urine Bacteria FEW A Urine Hyaline Casts FEW A Urine Yeast (Budding) MODERATE A Urine Hemoglobin NEGATIVE Urine Glucose NEGATIVE Urine Total Protein 1+ H White Blood Count 10.6 Red Blood Count 2.55 L Hemoglobin 7.3 L Hematocrit 23.3 L Mean Corpuscular Volume 91.4 Mean Corpuscular Hemoglobin 28.6 L Mean Corpuscular Hemoglobin Concent 31.3 L Red Cell Distribution Width 17.7 H Platelet Count 283 Mean Platelet Volume 10.6 H Neutrophils % 82.5 H Lymphocytes % 9.7 L Monocytes % 4.4 Eosinophils % 2.7 Basophils % 0.3 Nucleated Red Blood Cells % 0.0 Neutrophils # (Manual) 8.7 H Lymphocytes # 1.0 Monocytes # 0.5 Eosinophils # 0.3 Basophils # 0.0 Nucleated Red Blood Cells # 0.0 Sodium Level 140 Potassium Level 3.8 Chloride Level 93 L Carbon Dioxide Level 36 H Anion Gap 15 Blood Urea Nitrogen 25 H Creatinine 0.59 L Glucose Level 104 Calcium Level 8.9 Total Bilirubin 0.0 L Direct Bilirubin 0.00 Indirect Bilirubin 0.0 Aspartate Amino Transf (AST/SGOT) 66 H Alanine Aminotransferase (ALT/SGPT) 50 Alkaline Phosphatase 180 H Total Protein 6.8 Albumin 2.6 L Globulin 4.20 H Albumin/Globulin Ratio 0.61 Medications Medications Current Medications Ondansetron HCl (Zofran Inj) 4 mg Q6H PRN IV NAUSEA AND/OR VOMITING; Start at 22:00 Acetaminophen (Tylenol Tab) 650 mg Q6H PRN PO PAIN LEVEL 1-3 OR FEVER Last administered on 01/10/17 15:46; Admin Dose 650 MG; Start 01/09/17 at 22:00 Morphine Sulfate (morphine) 2 mg Q4H PRN IV PAIN LEVEL 7-10 Last administered on 01/20/17 20:19; Admin Dose 2 MG; Start 01/09/17 at 22:00 Clonidine (Catapres) 0.1 mg Q6 GTB Last administered on 01/19/17 12:11; Admin Dose 0.1 MG; Start 01/10/17 at 18:00 Diphenhydramine HCl (Benadryl) 25 mg Q6H PRN GTB ITCHING Last administered on 20:54; Admin Dose 25 MG; Start 01/10/17 at 17:00 Folic Acid (Folic Acid) 1 mg DAILY GTB Last administered on 01/20/17 09:41; Admin Dose 1 MG; Start 01/11/17 at 09:00 Acetaminophen/ Hydrocodone Bitart ([place] (5/325)) 1 tab Q4H PRN GTB PAIN LEVEL 4-10/10 Last administered on 01/17/17 18:49; Admin Dose 1 TAB; Start 01/10/17 at 17:00 Lactobacillus Acidophilus (Florajen3 Capsule) 3 each TID PEG Last administered on 01/20/17 21:21; Admin Dose 3 EACH; Start 01/10/17 at 21:00 Lansoprazole (Prevacid) 30 mg DAILY GTB Last administered on 01/20/17 09:37; Admin Dose 30 MG; Start 01/11/17 at 09:00 Metoprolol Tartrate (Lopressor) 50 mg BID GTB Last administered on 01/20/17 21 :28; Admin Dose 50 MG; Start 01/10/17 at 21:00 Oxcarbazepine (Trileptal) 300 mg BID GTB Last administered on 01/20/17 21:28; Admin Dose 300 MG; Start 01/10/17 at 21:00 Metoprolol Tartrate (Lopressor) 5 mg Q4 PRN IV NOTE; Start 01/10/17 at 17:00 Ascorbic Acid (Vitamin C) 500 mg DAILY GTB Last administered on 01/20/17 09:33 ; Admin Dose 500 MG; Start 01/11/17 at 09:00 Diphenhydramine HCl (Benadryl) 25 mg Q6H PRN IV Agitation Last administered on 01/17/17 20:22; Admin Dose 25 MG; Start 01/10/17 at 17:30 Multivitamins 30 ml 30 ml DAILY GTB Last administered on 01/20/17 09:32; Admin Dose 30 ML; Start 01/11/17 at 09:00 Sodium Chloride (NS) 1,000 ml @ 30 mls/hr Q24H IV Last administered on 14:37; Admin Dose 30 MLS/HR; Start 01/10/17 at 18:30 Acetaminophen (Tylenol Liquid) 650 mg Q6H PRN GTB FOR FEVER T>101 Last administered on 01/20/17 15:22; Admin Dose 650 MG; Start 01/10/17 at 18:30 Guaifenesin/ Codeine Phosphate (Robitussin Ac Liquid Cup) 5 ml Q4H PRN PO COUGH Last administered on 01/18/17 05:25; Admin Dose 5 ML; Start 01/17/17 at 12:00 Quetiapine Fumarate (Seroquel) 50 mg Q6 PO Last administered on 01/20/17 12:50 ; Admin Dose 50 MG; Start 01/18/17 at 00:00 Haloperidol 5 mg 5 mg Q6H PRN IM AGITATION Last administered on 01/17/17 22:35 ; Admin Dose 5 MG; Start 01/17/17 at 22:30 Meropenem/Sodium Chloride (Merrem 1 Gm/50 ml (Pmx)) 50 ml @ 100 mls/hr Q8 IVPB Last administered on 01/20/17 22:37; Admin Dose 100 MLS/HR; Start 01/19/17 at 22:00 Loperamide HCl (Imodium Cap) 2 mg Q6H PRN GTB DIARRHEA; Start 01/20/17 at 16:30 MADISON PIERRE M.D. Jan 20, 2017 23:05
[2017-01-21] VITALS (23 sets, daily range): BP systolic 100–148; BP diastolic 56–70; PULSE 69–88; RESP 18–37
[2017-01-21] MEDS: QUETIAPINE 25 MG TAB PO SCH ×5 (00:14→19:01)
[2017-01-21] MEDS: ALBUTEROL 18 GM INHALER INH SCH ×6 (01:01→21:16)
[2017-01-21] MEDS: IPRATROPIUM (HFA) 12.9 GM INHALER INH SCH ×6 (01:02→21:16)
[2017-01-21] MEDS: MEROPENEM 1 GM/50ML(PMX) 50 ML IVPB SCH ×3 (06:00→22:23)
[2017-01-21 07:06] LABS: BASOPHILS % 0.3 % (0.0-2.0); EOSINOPHILS # 0.4 10^3/ul (0.0-0.5); EOSINOPHILS % 4.1 % (0.0-7.0); HEMATOCRIT 31.7 % (42.0-52.0); HEMOGLOBIN 10.1 g/dl (14.0-18.0); LYMPHOCYTES % 9.5 % (15.0-51.0); MEAN CORPUSCULAR HEMOGLOBIN 29.3 pg (29.0-33.0); MEAN CORPUSCULAR HGB CONC 31.9 g/dl (32.0-37.0); MEAN CORPUSCULAR VOLUME 91.9 fl (82.0-101.0); MEAN PLATELET VOLUME 10.7 fl (7.4-10.4); MONOCYTE # 0.3 10^3/ul (0.3-0.9); MONOCYTES % 2.4 % (0.0-11.0); NEUTROPHILS % 83.2 % (39.0-77.0); PLATELET COUNT 319 10^3/UL (140-415); RED BLOOD COUNT 3.45 10^6/ul (4.70-6.10); RED CELL DISTRIBUTION WIDTH 16.2 % (11.5-14.5); WHITE BLOOD COUNT 10.7 10^3/ul (4.8-10.8)
[2017-01-21 07:30] LABS: CALCIUM 8.9 mg/dl (8.4-10.2); CREATININE 0.52 mg/dl (0.61-1.24); POTASSIUM 3.8 mmol/L (3.5-5.1)
[2017-01-21] MEDS: FOLIC ACID 1 MG TAB GTB SCH (09:00)
[2017-01-21] MEDS: TOBRAMYCIN/0.25NS 300 MG/5 ML INHAL NEB SCH ×3 (09:00→21:17)
[2017-01-21] MEDS: L ACIDOPHIL/B LACTIS/B LONGUM CAPSULE PEG SCH ×3 (09:00→22:15)
[2017-01-21] MEDS: ACYCLOVIR 400 MG TAB GTB SCH ×7 (09:00→22:13)
--- NOTE | 2017-01-21 10:50 | CONS ---
Date/Time of Note Date/Time of Note DATE: 01/21/17 TIME: 10:47 Assessment/Plan Assessment/Plan Chief Complaint/Hosp Course IMP: 1.Diastolic CHF 2.HTN 3.Resp failure-chronic s/p trach 4.Pulmonary fibrosis 5. PNA 6.UTI 7. Labial herpes Recc: -Tele -Continue BB as tolerated -Continue abx's and bronchodilators -Continue acyclovir -Follow volume status closely Problems: Consultation Date/Type/Reason Admit Date/Time Jan 09, 2017 at 18:37 Initial Consult Date 01/10/17 Type of Consultation: cardiology Reason for Consultation tachycardic Referring Provider: MATTHEW CALDERON MD Exam/Review of Systems Vital Signs Vitals Vital Signs Date Time Temp Pulse Resp B/P Pulse Ox O2 Delivery O2 Flow Rate FiO2 01/21/17 08:05 88 01/21/17 07:22 98.9 20 145/68 100 01/21/17 05:26 45 01/19/17 04:00 Mechanical Ventilator Intake and Output 01/20/17 01/20/17 01/21/17 15:00 23:00 07:00 Intake Total 1130 ml Output Total 750 ml Balance 380 ml Exam Review of Systems: CONSTITUTIONAL: No fevers, chills. PULMONARY: No sob CARDIOVASCULAR: No chest pain/palpitations GASTROINTESTINAL: No nausea/vomiting. GENITOURINARY: No hematuria/dysuria. MUSCULOSKELETAL: No myagias/arthalgias. PSYCHIATRIC: The patient denies depression. NEUROLOGIC: No weakness Constitutional: alert Psych: no complaints Head: normocephalic ENMT: mucosa pink and moist Neck: jvd, supple Respiratory: diminished breath sounds Cardiovascular: other (tachycardic, regular rhythm) Gastrointestinal: non-tender, soft Musculoskeletal: muscle tone (normal) Extremities: edema (none) Neurological: other (No focal deficits) Results Result Diagram: 01/21/17 0609 01/21/17 0609 Results 24 hrs Laboratory Tests Test 01/21/17 06:09 White Blood Count 10.7 Red Blood Count 3.45 #L Hemoglobin 10.1 #L Hematocrit 31.7 #L Mean Corpuscular Volume 91.9 Mean Corpuscular Hemoglobin 29.3 Mean Corpuscular Hemoglobin Concent 31.9 L Red Cell Distribution Width 16.2 H Platelet Count 319 Mean Platelet Volume 10.7 H Neutrophils % 83.2 H Lymphocytes % 9.5 L Monocytes % 2.4 Eosinophils % 4.1 Basophils % 0.3 Nucleated Red Blood Cells % 0.0 Neutrophils # (Manual) 8.9 H Lymphocytes # 1.0 Monocytes # 0.3 Eosinophils # 0.4 Basophils # 0.0 Nucleated Red Blood Cells # 0.0 Sodium Level 134 L Potassium Level 3.8 Chloride Level 93 L Carbon Dioxide Level 34 H Anion Gap 11 Blood Urea Nitrogen 22 H Creatinine 0.52 L Glucose Level 107 Calcium Level 8.9 Medications Medications Current Medications Ondansetron HCl (Zofran Inj) 4 mg Q6H PRN IV NAUSEA AND/OR VOMITING; Start at 22:00 Acetaminophen (Tylenol Tab) 650 mg Q6H PRN PO PAIN LEVEL 1-3 OR FEVER Last administered on 01/10/17 15:46; Admin Dose 650 MG; Start 01/09/17 at 22:00 Morphine Sulfate (morphine) 2 mg Q4H PRN IV PAIN LEVEL 7-10 Last administered on 01/20/17 20:19; Admin Dose 2 MG; Start 01/09/17 at 22:00 Clonidine (Catapres) 0.1 mg Q6 GTB Last administered on 01/19/17 12:11; Admin Dose 0.1 MG; Start 01/10/17 at 18:00 Diphenhydramine HCl (Benadryl) 25 mg Q6H PRN GTB ITCHING Last administered on 20:54; Admin Dose 25 MG; Start 01/10/17 at 17:00 Folic Acid (Folic Acid) 1 mg DAILY GTB Last administered on 01/20/17 09:41; Admin Dose 1 MG; Start 01/11/17 at 09:00 Acetaminophen/ Hydrocodone Bitart ([place] (5/325)) 1 tab Q4H PRN GTB PAIN LEVEL 4-10/10 Last administered on 01/17/17 18:49; Admin Dose 1 TAB; Start 01/10/17 at 17:00 Lactobacillus Acidophilus (Florajen3 Capsule) 3 each TID PEG Last administered on 01/20/17 21:21; Admin Dose 3 EACH; Start 01/10/17 at 21:00 Lansoprazole (Prevacid) 30 mg DAILY GTB Last administered on 01/20/17 09:37; Admin Dose 30 MG; Start 01/11/17 at 09:00 Metoprolol Tartrate (Lopressor) 50 mg BID GTB Last administered on 01/20/17 21 :28; Admin Dose 50 MG; Start 01/10/17 at 21:00 Oxcarbazepine (Trileptal) 300 mg BID GTB Last administered on 01/20/17 21:28; Admin Dose 300 MG; Start 01/10/17 at 21:00 Metoprolol Tartrate (Lopressor) 5 mg Q4 PRN IV NOTE; Start 01/10/17 at 17:00 Ascorbic Acid (Vitamin C) 500 mg DAILY GTB Last administered on 01/20/17 09:33 ; Admin Dose 500 MG; Start 01/11/17 at 09:00 Diphenhydramine HCl (Benadryl) 25 mg Q6H PRN IV Agitation Last administered on 01/17/17 20:22; Admin Dose 25 MG; Start 01/10/17 at 17:30 Multivitamins 30 ml 30 ml DAILY GTB Last administered on 01/20/17 09:32; Admin Dose 30 ML; Start 01/11/17 at 09:00 Sodium Chloride (NS) 1,000 ml @ 30 mls/hr Q24H IV Last administered on 14:37; Admin Dose 30 MLS/HR; Start 01/10/17 at 18:30 Acetaminophen (Tylenol Liquid) 650 mg Q6H PRN GTB FOR FEVER T>101 Last administered on 01/20/17 15:22; Admin Dose 650 MG; Start 01/10/17 at 18:30 Guaifenesin/ Codeine Phosphate (Robitussin Ac Liquid Cup) 5 ml Q4H PRN PO COUGH Last administered on 01/18/17 05:25; Admin Dose 5 ML; Start 01/17/17 at 12:00 Quetiapine Fumarate (Seroquel) 50 mg Q6 PO Last administered on 01/21/17 06:00 ; Admin Dose 50 MG; Start 01/18/17 at 00:00 Haloperidol 5 mg 5 mg Q6H PRN IM AGITATION Last administered on 01/17/17 22:35 ; Admin Dose 5 MG; Start 01/17/17 at 22:30 Meropenem/Sodium Chloride (Merrem 1 Gm/50 ml (Pmx)) 50 ml @ 100 mls/hr Q8 IVPB Last administered on 01/21/17t 06:00; Admin Dose 100 MLS/HR; Start 01/19/17 at 22:00 Loperamide HCl (Imodium Cap) 2 mg Q6H PRN GTB DIARRHEA; Start 01/20/17 at 16:30 CLOVIS LEON Jan 21, 2017 10:50
--- NOTE | 2017-01-21 11:01 | CONS ---
RODRIGUEZ GLOVER DROSOPHERE OPERATOR 01/21/17 1101: Date/Time of Note Date/Time of Note DATE: 01/21/17 TIME: 10:57 Assessment/Plan Assessment/Plan Chief Complaint/Hosp Course assessment/impression: - recurrent fever - sepsis vs. 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 coli - recurrent thrush - underlying pulmonary fibrosis - labial herpes - rash/erythroderma to caspofungin according to Pt's RN on 01/20/2017 - VDRF s/p trach 10/09/2016 - s/p recurrent sepsis due to HCAP and UTI - h/o HCAP due to MDR acinetobacter and ESBL E. Coli - dysphagia s/p PEG placement 10/09/2016 - erythroderma of unclear etiology in 11/2016, resolved - h/o CARLOS - h/o recurrent UTI due to ESBL E. Coli - h/o funguria - h/o bacteremia 10/28/2016 due to enterococcus faecium. Midline was dc'd - h/o bacteremia 12/21/2016 due to enterococcus faecalis - s/p severe sepsis due to UTI, prob aspiration after hematemesis and multiple intubation events, and HCAP - s/p acute UGIB of unclear etiology; s/p EGD 10/01/2016 showing no active bleeding site - HLD and fatty liver - h/o alcoholism - chronic diastolic HF - diverticulosis, seen on CT at [facility] - severe protein calorie malnutrition - h/o fall and trauma to R foot - drug rash likely due to caspofungin (01/18/2017-01/20/2017) - candiduria - replace Robin 01/21/2017 recommendations: - pending results: blood cultures x2 (NTD), resp culture, urine culture (prelim - C. albicans) - replace Robin. No fluconazole due its interaction with quetiapine. Will use nystatin if thrush persists. - continue empiric meropenem (01/19/2017-); s/p cefepime 01/09/2017-01/19/2017 - continue neb tobramycin (01/17/2017-), ordered for 10 days - continue pGT acyclovir for labial herpes infection (01/17/2017-), ordered for 7 days Management d/w patient, pt's , RN Erwin and Dr. Childers Problems: Consultation Date/Type/Reason Admit Date/Time Jan 09, 2017 at 18:37 Initial Consult Date 01/10/17 Type of Consultation: Infectious Disease Referring Provider: MATTHEW CALDERON MD 24 HR Interval Summary Free Text/Dictation Tmax 102.2 yesterday afternoon. reports productive cough and rash is improving. Pt reports mild discomfort near GT site. No n/v/d but had diarrhea yesterday per pt's . No other acute issues per d/w nursing staff. Subjective hx not possible: pt non-verbal Exam/Review of Systems Vital Signs Vitals Vital Signs Date Time Temp Pulse Resp B/P Pulse Ox O2 Delivery O2 Flow Rate FiO2 01/21/17 08:05 88 01/21/17 07:22 98.9 20 145/68 100 01/21/17 05:26 45 01/19/17 04:00 Mechanical Ventilator Intake and Output 01/20/17 01/20/17 01/21/17 15:00 23:00 07:00 Intake Total 1130 ml Output Total 750 ml Balance 380 ml Exam Constitutional: alert, frail, non-verbal, well developed Head: atraumatic, normocephalic, other (temporal wasting) Eyes: nl conjunctiva, nl lids, nl sclera ENMT: nl external ears & nose, other (herpetic lesion on the lower lip, oral thrush has improved) Neck: other (trach) Respiratory: crackles/rales, diminished breath sounds Cardiovascular: nl pulses, regular rate and rhythm Gastrointestinal: non-tender, other (G-tube present), soft Genitourinary - Male: other (Robin catheter present) Musculoskeletal: nl extremities to inspection Extremities: No edema Neurological: other (Nods to simple questions when spoken to in Y[place]ut) Skin: nl turgor, rash or lesions (Mild rash to left upper chest, BUE, and bilateral upper/medial thighs) Results Result Diagram: 01/21/17 0609 01/21/17 0609 Results 24 hrs Laboratory Tests Test 01/21/17 06:09 White Blood Count 10.7 Red Blood Count 3.45 #L Hemoglobin 10.1 #L Hematocrit 31.7 #L Mean Corpuscular Volume 91.9 Mean Corpuscular Hemoglobin 29.3 Mean Corpuscular Hemoglobin Concent 31.9 L Red Cell Distribution Width 16.2 H Platelet Count 319 Mean Platelet Volume 10.7 H Neutrophils % 83.2 H Lymphocytes % 9.5 L Monocytes % 2.4 Eosinophils % 4.1 Basophils % 0.3 Nucleated Red Blood Cells % 0.0 Neutrophils # (Manual) 8.9 H Lymphocytes # 1.0 Monocytes # 0.3 Eosinophils # 0.4 Basophils # 0.0 Nucleated Red Blood Cells # 0.0 Sodium Level 134 L Potassium Level 3.8 Chloride Level 93 L Carbon Dioxide Level 34 H Anion Gap 11 Blood Urea Nitrogen 22 H Creatinine 0.52 L Glucose Level 107 Calcium Level 8.9 Medications Medications Current Medications Ondansetron HCl (Zofran Inj) 4 mg Q6H PRN IV NAUSEA AND/OR VOMITING; Start at 22:00 Acetaminophen (Tylenol Tab) 650 mg Q6H PRN PO PAIN LEVEL 1-3 OR FEVER Last administered on 01/10/17 15:46; Admin Dose 650 MG; Start 01/09/17 at 22:00 Morphine Sulfate (morphine) 2 mg Q4H PRN IV PAIN LEVEL 7-10 Last administered on 01/20/17 20:19; Admin Dose 2 MG; Start 01/09/17 at 22:00 Clonidine (Catapres) 0.1 mg Q6 GTB Last administered on 01/19/17 12:11; Admin Dose 0.1 MG; Start 01/10/17 at 18:00 Diphenhydramine HCl (Benadryl) 25 mg Q6H PRN GTB ITCHING Last administered on 20:54; Admin Dose 25 MG; Start 01/10/17 at 17:00 Folic Acid (Folic Acid) 1 mg DAILY GTB Last administered on 01/20/17 09:41; Admin Dose 1 MG; Start 01/11/17 at 09:00 Acetaminophen/ Hydrocodone Bitart ([place] (5/325)) 1 tab Q4H PRN GTB PAIN LEVEL 4-10/10 Last administered on 01/17/17 18:49; Admin Dose 1 TAB; Start 01/10/17 at 17:00 Lactobacillus Acidophilus (Florajen3 Capsule) 3 each TID PEG Last administered on 01/20/17 21:21; Admin Dose 3 EACH; Start 01/10/17 at 21:00 Lansoprazole (Prevacid) 30 mg DAILY GTB Last administered on 01/20/17 09:37; Admin Dose 30 MG; Start 01/11/17 at 09:00 Metoprolol Tartrate (Lopressor) 50 mg BID GTB Last administered on 01/20/17 21 :28; Admin Dose 50 MG; Start 01/10/17 at 21:00 Oxcarbazepine (Trileptal) 300 mg BID GTB Last administered on 01/20/17 21:28; Admin Dose 300 MG; Start 01/10/17 at 21:00 Metoprolol Tartrate (Lopressor) 5 mg Q4 PRN IV NOTE; Start 01/10/17 at 17:00 Ascorbic Acid (Vitamin C) 500 mg DAILY GTB Last administered on 01/20/17 09:33 ; Admin Dose 500 MG; Start 01/11/17 at 09:00 Diphenhydramine HCl (Benadryl) 25 mg Q6H PRN IV Agitation Last administered on 01/17/17 20:22; Admin Dose 25 MG; Start 01/10/17 at 17:30 Multivitamins 30 ml 30 ml DAILY GTB Last administered on 01/20/17 09:32; Admin Dose 30 ML; Start 01/11/17 at 09:00 Sodium Chloride (NS) 1,000 ml @ 30 mls/hr Q24H IV Last administered on 14:37; Admin Dose 30 MLS/HR; Start 01/10/17 at 18:30 Acetaminophen (Tylenol Liquid) 650 mg Q6H PRN GTB FOR FEVER T>101 Last administered on 01/20/17 15:22; Admin Dose 650 MG; Start 01/10/17 at 18:30 Guaifenesin/ Codeine Phosphate (Robitussin Ac Liquid Cup) 5 ml Q4H PRN PO COUGH Last administered on 01/18/17 05:25; Admin Dose 5 ML; Start 01/17/17 at 12:00 Quetiapine Fumarate (Seroquel) 50 mg Q6 PO Last administered on 01/21/17 06:00 ; Admin Dose 50 MG; Start 01/18/17 at 00:00 Haloperidol 5 mg 5 mg Q6H PRN IM AGITATION Last administered on 01/17/17 22:35 ; Admin Dose 5 MG; Start 01/17/17 at 22:30 Meropenem/Sodium Chloride (Merrem 1 Gm/50 ml (Pmx)) 50 ml @ 100 mls/hr Q8 IVPB Last administered on 01/21/17 06:00; Admin Dose 100 MLS/HR; Start 01/19/17 at 22:00 Loperamide HCl (Imodium Cap) 2 mg Q6H PRN GTB DIARRHEA; Start 01/20/17 at 16:30 Procedures Procedures CXR 01/19/2017: 1. Tracheostomy tube. 2. Cardiomegaly. 3. Extensive chronic interstitial fibrosis without significant interval change. MADISON CHILDERS M.D. 01/22/17 1902: Assessment/Plan Assessment/Plan Additional Assessment/Plan Liseth attestation: I discussed the management with CARSON Glover and agree with her note Exam/Review of Systems Results Result Diagram: 01/21/17 0609 01/21/17 0609 RODRIGUEZ GLOVER NP Jan 21, 2017 11:01 MADISON CHILDERS M.D. Jan 22, 2017 19:02
--- NOTE | 2017-01-21 11:01 | CONS ---
Date/Time of Note Date/Time of Note DATE: 01/21/17 TIME: 10:59 Assessment/Plan Assessment/Plan Additional Assessment/Plan Ventilator setting; AC of 20, tidal volume 500, PEEP of 5, 45% FiO2. Assessment and recommendations; 1. Patient admitted with sepsis with significant clinical improvement. 2. Chronic respiratory failure due to end-stage pulmonary fibrosis. 3. Anemia. Continue current supportive care. Consider discontinuing antibiotics. Tracheal aspirate culture is colonization. Consultation Date/Type/Reason Admit Date/Time Jan 09, 2017 at 18:37 Initial Consult Date 01/10/17 Type of Consultation: Pulmonary/critical care Referring Provider: MATTHEW CALDERON MD 24 HR Interval Summary Free Text/Dictation Patient condition stable. Remains awake and alert. Has remained hemodynamically stable. General exam; elderly male, awake and alert, currently in no distress. On ventilator via tracheostomy. Exam/Review of Systems Vital Signs Vitals Vital Signs Date Time Temp Pulse Resp B/P Pulse Ox O2 Delivery O2 Flow Rate FiO2 01/21/17 08:05 88 01/21/17 07:22 98.9 20 145/68 100 01/21/17 05:26 45 01/19/17 04:00 Mechanical Ventilator Intake and Output 01/20/17 01/20/17 01/21/17 15:00 23:00 07:00 Intake Total 1130 ml Output Total 750 ml Balance 380 ml Exam HEENT exam; supple neck, no JVD. No lymphadenopathy. Midline trachea. No thyromegaly. Tracheostomy in place. Patient has fair dentition. Chest exam; diminished breath sounds bilaterally with bilateral crackles. S1- S2 audible, no murmurs. Regular rhythm. Abdomen exam; soft, no organomegaly. Nontender. G-tube in place. Bowel sounds audible. Extremity exam; no peripheral edema. 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 Results Result Diagram: 01/21/17 0609 01/21/17 0609 Results 24 hrs Laboratory Tests Test 01/21/17 06:09 White Blood Count 10.7 Red Blood Count 3.45 #L Hemoglobin 10.1 #L Hematocrit 31.7 #L Mean Corpuscular Volume 91.9 Mean Corpuscular Hemoglobin 29.3 Mean Corpuscular Hemoglobin Concent 31.9 L Red Cell Distribution Width 16.2 H Platelet Count 319 Mean Platelet Volume 10.7 H Neutrophils % 83.2 H Lymphocytes % 9.5 L Monocytes % 2.4 Eosinophils % 4.1 Basophils % 0.3 Nucleated Red Blood Cells % 0.0 Neutrophils # (Manual) 8.9 H Lymphocytes # 1.0 Monocytes # 0.3 Eosinophils # 0.4 Basophils # 0.0 Nucleated Red Blood Cells # 0.0 Sodium Level 134 L Potassium Level 3.8 Chloride Level 93 L Carbon Dioxide Level 34 H Anion Gap 11 Blood Urea Nitrogen 22 H Creatinine 0.52 L Glucose Level 107 Calcium Level 8.9 Medications Medications Current Medications Ondansetron HCl (Zofran Inj) 4 mg Q6H PRN IV NAUSEA AND/OR VOMITING; Start at 22:00 Acetaminophen (Tylenol Tab) 650 mg Q6H PRN PO PAIN LEVEL 1-3 OR FEVER Last administered on 01/10/17 15:46; Admin Dose 650 MG; Start 01/09/17 at 22:00 Morphine Sulfate (morphine) 2 mg Q4H PRN IV PAIN LEVEL 7-10 Last administered on 01/20/17 20:19; Admin Dose 2 MG; Start 01/09/17 at 22:00 Clonidine (Catapres) 0.1 mg Q6 GTB Last administered on 01/19/17 12:11; Admin Dose 0.1 MG; Start 01/10/17 at 18:00 Diphenhydramine HCl (Benadryl) 25 mg Q6H PRN GTB ITCHING Last administered on 20:54; Admin Dose 25 MG; Start 01/10/17 at 17:00 Folic Acid (Folic Acid) 1 mg DAILY GTB Last administered on 01/20/17 09:41; Admin Dose 1 MG; Start 01/11/17 at 09:00 Acetaminophen/ Hydrocodone Bitart ([place] (5/325)) 1 tab Q4H PRN GTB PAIN LEVEL 4-10/10 Last administered on 01/17/17 18:49; Admin Dose 1 TAB; Start 01/10/17 at 17:00 Lactobacillus Acidophilus (Florajen3 Capsule) 3 each TID PEG Last administered on 01/20/17 21:21; Admin Dose 3 EACH; Start 01/10/17 at 21:00 Lansoprazole (Prevacid) 30 mg DAILY GTB Last administered on 01/20/17 09:37; Admin Dose 30 MG; Start 01/11/17 at 09:00 Metoprolol Tartrate (Lopressor) 50 mg BID GTB Last administered on 01/20/17 21 :28; Admin Dose 50 MG; Start 01/10/17 at 21:00 Oxcarbazepine (Trileptal) 300 mg BID GTB Last administered on 01/20/17 21:28; Admin Dose 300 MG; Start 01/10/17 at 21:00 Metoprolol Tartrate (Lopressor) 5 mg Q4 PRN IV NOTE; Start 01/10/17 at 17:00 Ascorbic Acid (Vitamin C) 500 mg DAILY GTB Last administered on 01/20/17 09:33 ; Admin Dose 500 MG; Start 01/11/17 at 09:00 Diphenhydramine HCl (Benadryl) 25 mg Q6H PRN IV Agitation Last administered on 01/17/17 20:22; Admin Dose 25 MG; Start 01/10/17 at 17:30 Multivitamins 30 ml 30 ml DAILY GTB Last administered on 01/20/17 09:32; Admin Dose 30 ML; Start 01/11/17 at 09:00 Sodium Chloride (NS) 1,000 ml @ 30 mls/hr Q24H IV Last administered on 14:37; Admin Dose 30 MLS/HR; Start 01/10/17 at 18:30 Acetaminophen (Tylenol Liquid) 650 mg Q6H PRN GTB FOR FEVER T>101 Last administered on 01/20/17 15:22; Admin Dose 650 MG; Start 01/10/17 at 18:30 Guaifenesin/ Codeine Phosphate (Robitussin Ac Liquid Cup) 5 ml Q4H PRN PO COUGH Last administered on 01/18/17 05:25; Admin Dose 5 ML; Start 01/17/17 at 12:00 Quetiapine Fumarate (Seroquel) 50 mg Q6 PO Last administered on 01/21/17 06:00 ; Admin Dose 50 MG; Start 01/18/17 at 00:00 Haloperidol 5 mg 5 mg Q6H PRN IM AGITATION Last administered on 01/17/17 22:35 ; Admin Dose 5 MG; Start 01/17/17 at 22:30 Meropenem/Sodium Chloride (Merrem 1 Gm/50 ml (Pmx)) 50 ml @ 100 mls/hr Q8 IVPB Last administered on 01/21/17t 06:00; Admin Dose 100 MLS/HR; Start 01/19/17 at 22:00 Loperamide HCl (Imodium Cap) 2 mg Q6H PRN GTB DIARRHEA; Start 01/20/17 at 16:30 JOSE L BLAKE Jan 21, 2017 11:01
[2017-01-21] MEDS: morphine 2 MG INJ IV PRN ×2 (11:06→22:16)
[2017-01-21] MEDS: MULTIVITAMINS 30 ML CUP GTB SCH (11:08)
[2017-01-21] MEDS: LANSOPRAZOLE 30 MG CAP GTB SCH (11:08)
[2017-01-21] MEDS: ASCORBIC ACID 500 MG TAB GTB SCH (11:09)
[2017-01-21] MEDS: METOPROLOL 50 MG TAB GTB SCH ×2 (11:10→22:14)
[2017-01-21] MEDS: OXCARBAZEPINE 300 MG TAB GTB SCH ×2 (11:10→22:13)
[2017-01-21] MEDS: SOD CHLORIDE 0.9% 1,000 ML IV SCH (14:18)
--- NOTE | 2017-01-21 18:56 | PN ---
Date/Time of Note Date/Time of Note DATE: 01/21/17 TIME: 18:54 Assessment/Plan VTE Prophylaxis VTE Prophylaxis Intervention: SCD's Lines/Catheters IV Catheter Type (from Nrs): Peripheral IV Urinary Cath still in place: Yes Reason Cath still needed: urinary retention Assessment/Plan Chief Complaint/Hosp Course No episodes of agitation per RN, patient is awake, moderate secretions from the tracheostomy. Assessment/Plan - Possible recurrent sepsis. Dr. Laguerre is following infection disease consultation. Continue antibiotics per ID. - Pulmonary fibrosis. - Ventilatory dependent respiratory failure with tracheostomy. Dr. Souza is following in pulmonology consultation. - Chronic diastolic congestive heart failure. - Dysphagia with PEG. - Fatty liver. - Anemia, stool for OB is negative, continue to monitor H&H. Further recommendations based on clinical course. Plan of care discussed with Dr. Austin Problems: Exam/Review of Systems Vital Signs Vitals Vital Signs Date Time Temp Pulse Resp B/P Pulse Ox O2 Delivery O2 Flow Rate FiO2 01/21/17 17:15 67 27 96 45 01/21/17 16:03 98.5 100/56 01/19/17 04:00 Mechanical Ventilator Intake and Output 01/20/17 01/20/17 01/21/17 15:00 23:00 07:00 Intake Total 1130 ml Output Total 750 ml Balance 380 ml Exam Constitutional: alert, non-verbal Head: normocephalic Neck: other Respiratory: diminished breath sounds Cardiovascular: nl pulses Gastrointestinal: non-tender, other (G-tube), soft Extremities: normal pulses Results Result Diagram: 01/21/17 0609 01/21/17 0609 Results 24 hrs Laboratory Tests Test 01/21/17 06:09 White Blood Count 10.7 Red Blood Count 3.45 #L Hemoglobin 10.1 #L Hematocrit 31.7 #L Mean Corpuscular Volume 91.9 Mean Corpuscular Hemoglobin 29.3 Mean Corpuscular Hemoglobin Concent 31.9 L Red Cell Distribution Width 16.2 H Platelet Count 319 Mean Platelet Volume 10.7 H Neutrophils % 83.2 H Lymphocytes % 9.5 L Monocytes % 2.4 Eosinophils % 4.1 Basophils % 0.3 Nucleated Red Blood Cells % 0.0 Neutrophils # (Manual) 8.9 H Lymphocytes # 1.0 Monocytes # 0.3 Eosinophils # 0.4 Basophils # 0.0 Nucleated Red Blood Cells # 0.0 Sodium Level 134 L Potassium Level 3.8 Chloride Level 93 L Carbon Dioxide Level 34 H Anion Gap 11 Blood Urea Nitrogen 22 H Creatinine 0.52 L Glucose Level 107 Calcium Level 8.9 Medications Medications Current Medications Ondansetron HCl (Zofran Inj) 4 mg Q6H PRN IV NAUSEA AND/OR VOMITING; Start at 22:00 Acetaminophen (Tylenol Tab) 650 mg Q6H PRN PO PAIN LEVEL 1-3 OR FEVER Last administered on 01/10/17 15:46; Admin Dose 650 MG; Start 01/09/17 at 22:00 Morphine Sulfate (morphine) 2 mg Q4H PRN IV PAIN LEVEL 7-10 Last administered on 01/21/17 11:06; Admin Dose 2 MG; Start 01/09/17 at 22:00 Clonidine (Catapres) 0.1 mg Q6 GTB Last administered on 01/21/17 14:01; Admin Dose 0.1 MG; Start 01/10/17 at 18:00 Diphenhydramine HCl (Benadryl) 25 mg Q6H PRN GTB ITCHING Last administered on 20:54; Admin Dose 25 MG; Start 01/10/17 at 17:00 Folic Acid (Folic Acid) 1 mg DAILY GTB Last administered on 01/21/17 09:00; Admin Dose 1 MG; Start 01/11/17 at 09:00 Acetaminophen/ Hydrocodone Bitart ([place] (5/325)) 1 tab Q4H PRN GTB PAIN LEVEL 4-10/10 Last administered on 01/17/17 18:49; Admin Dose 1 TAB; Start 01/10/17 at 17:00 Lactobacillus Acidophilus (Florajen3 Capsule) 3 each TID PEG Last administered on 01/21/17 14:00; Admin Dose 3 EACH; Start 01/10/17 at 21:00 Lansoprazole (Prevacid) 30 mg DAILY GTB Last administered on 01/21/17 11:08; Admin Dose 30 MG; Start 01/11/17 at 09:00 Metoprolol Tartrate (Lopressor) 50 mg BID GTB Last administered on 01/21/17 11 :10; Admin Dose 50 MG; Start 01/10/17 at 21:00 Oxcarbazepine (Trileptal) 300 mg BID GTB Last administered on 01/21/17 11:10; Admin Dose 300 MG; Start 01/10/17 at 21:00 Metoprolol Tartrate (Lopressor) 5 mg Q4 PRN IV NOTE; Start 01/10/17 at 17:00 Ascorbic Acid (Vitamin C) 500 mg DAILY GTB Last administered on 01/21/17 11:09 ; Admin Dose 500 MG; Start 01/11/17 at 09:00 Diphenhydramine HCl (Benadryl) 25 mg Q6H PRN IV Agitation Last administered on 01/17/17 20:22; Admin Dose 25 MG; Start 01/10/17 at 17:30 Multivitamins 30 ml 30 ml DAILY GTB Last administered on 01/21/17 11:08; Admin Dose 30 ML; Start 01/11/17 at 09:00 Sodium Chloride (NS) 1,000 ml @ 30 mls/hr Q24H IV Last administered on 14:18; Admin Dose 30 MLS/HR; Start 01/10/17 at 18:30 Acetaminophen (Tylenol Liquid) 650 mg Q6H PRN GTB FOR FEVER T>101 Last administered on 01/20/17 15:22; Admin Dose 650 MG; Start 01/10/17 at 18:30 Guaifenesin/ Codeine Phosphate (Robitussin Ac Liquid Cup) 5 ml Q4H PRN PO COUGH Last administered on 01/18/17 05:25; Admin Dose 5 ML; Start 01/17/17 at 12:00 Quetiapine Fumarate (Seroquel) 50 mg Q6 PO Last administered on 01/21/17 14:00 ; Admin Dose 50 MG; Start 01/18/17 at 00:00 Haloperidol 5 mg 5 mg Q6H PRN IM AGITATION Last administered on 01/17/17 22:35 ; Admin Dose 5 MG; Start 01/17/17 at 22:30 Meropenem/Sodium Chloride (Merrem 1 Gm/50 ml (Pmx)) 50 ml @ 100 mls/hr Q8 IVPB Last administered on 01/21/17 14:01; Admin Dose 100 MLS/HR; Start 01/19/17 at 22:00 Loperamide HCl (Imodium Cap) 2 mg Q6H PRN GTB DIARRHEA; Start 01/20/17 at 16:30 MARIO LAND Jan 21, 2017 18:56
[2017-01-22] VITALS (24 sets, daily range): BP systolic 97–137; BP diastolic 53–76; PULSE 69–94; RESP 18–34
[2017-01-22] MEDS: QUETIAPINE 25 MG TAB PO SCH ×4 (00:21→17:20)
[2017-01-22] MEDS: ALBUTEROL 18 GM INHALER INH SCH ×6 (01:14→20:00)
[2017-01-22] MEDS: IPRATROPIUM (HFA) 12.9 GM INHALER INH SCH ×6 (01:14→20:01)
[2017-01-22] MEDS: MEROPENEM 1 GM/50ML(PMX) 50 ML IVPB SCH ×3 (05:22→22:15)
[2017-01-22 07:02] LABS: BASOPHILS % 0.4 % (0.0-2.0); EOSINOPHILS # 0.6 10^3/ul (0.0-0.5); EOSINOPHILS % 7.4 % (0.0-7.0); HEMATOCRIT 31.2 % (42.0-52.0); HEMOGLOBIN 10.1 g/dl (14.0-18.0); LYMPHOCYTES % 12.9 % (15.0-51.0); MEAN CORPUSCULAR HEMOGLOBIN 30.2 pg (29.0-33.0); MEAN CORPUSCULAR HGB CONC 32.4 g/dl (32.0-37.0); MEAN CORPUSCULAR VOLUME 93.4 fl (82.0-101.0); MEAN PLATELET VOLUME 10.2 fl (7.4-10.4); MONOCYTE # 0.4 10^3/ul (0.3-0.9); MONOCYTES % 4.8 % (0.0-11.0); NEUTROPHILS % 73.9 % (39.0-77.0); PLATELET COUNT 292 10^3/UL (140-415); RED BLOOD COUNT 3.34 10^6/ul (4.70-6.10); RED CELL DISTRIBUTION WIDTH 16.2 % (11.5-14.5); WHITE BLOOD COUNT 7.9 10^3/ul (4.8-10.8)
[2017-01-22 07:29] LABS: CREATININE 0.5 mg/dl (0.61-1.24)
[2017-01-22] MEDS: L ACIDOPHIL/B LACTIS/B LONGUM CAPSULE PEG SCH ×3 (08:53→20:10)
[2017-01-22] MEDS: FOLIC ACID 1 MG TAB GTB SCH (08:53)
[2017-01-22] MEDS: METOPROLOL 50 MG TAB GTB SCH ×2 (08:54→20:14)
[2017-01-22] MEDS: LANSOPRAZOLE 30 MG CAP GTB SCH (08:54)
[2017-01-22] MEDS: ASCORBIC ACID 500 MG TAB GTB SCH (08:54)
[2017-01-22] MEDS: MULTIVITAMINS 30 ML CUP GTB SCH (08:54)
[2017-01-22] MEDS: OXCARBAZEPINE 300 MG TAB GTB SCH ×2 (08:54→20:10)
--- NOTE | 2017-01-22 09:08 | CONS ---
Date/Time of Note Date/Time of Note DATE: 01/22/17 TIME: 09:06 Assessment/Plan Assessment/Plan Additional Assessment/Plan Ventilator setting; AC of 20, volume 500, PEEP of 5, 45% FiO2. Assessment and recommendations; 1. Patient admitted with pneumonia and flareup of underlying pulmonary fibrosis with significant clinical improvement. 2. Chronic respiratory failure. Her graph continue current treatment. Consider discharge. Consultation Date/Type/Reason Admit Date/Time Jan 09, 2017 at 18:37 Initial Consult Date 01/10/17 Type of Consultation: Pulmonary/critical care Referring Provider: MATTHEW CALDERON MD 24 HR Interval Summary Free Text/Dictation Patient's condition remains stable. Remains awake and alert. Has remained hemodynamically stable. General exam; elderly male, on ventilator via tracheostomy, currently in no distress. Awake and alert. Exam/Review of Systems Vital Signs Vitals Vital Signs Date Time Temp Pulse Resp B/P Pulse Ox O2 Delivery O2 Flow Rate FiO2 01/22/17 07:12 98.5 81 20 121/60 98 01/22/17 05:14 45 01/19/17 04:00 Mechanical Ventilator Intake and Output 01/21/17 01/21/17 01/22/17 15:00 23:00 07:00 Intake Total 1270 ml 680 ml Output Total 525 ml 800 ml Balance 745 ml -120 ml Exam HEENT exam; supple neck, no JVD. No lymphadenopathy. Midline trachea. No thyromegaly. Patient is edentulous. Tracheostomy in place. Chest exam; diminished breath sounds bilaterally. With bilateral crackles at S1 -S2 audible, no murmurs. Regular rhythm. Abdomen exam; soft, no organomegaly. Bowel sounds audible. G-tube in place. Extremity exam; no peripheral edema. No clubbing. 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 Results Result Diagram: 01/22/17 0608 01/22/17 0608 Results 24 hrs Laboratory Tests Test 01/22/17 06:08 White Blood Count 7.9 # Red Blood Count 3.34 L Hemoglobin 10.1 L Hematocrit 31.2 L Mean Corpuscular Volume 93.4 Mean Corpuscular Hemoglobin 30.2 Mean Corpuscular Hemoglobin Concent 32.4 Red Cell Distribution Width 16.2 H Platelet Count 292 Mean Platelet Volume 10.2 Neutrophils % 73.9 Lymphocytes % 12.9 L Monocytes % 4.8 Eosinophils % 7.4 H Basophils % 0.4 Nucleated Red Blood Cells % 0.0 Neutrophils # (Manual) 5.8 Lymphocytes # 1.0 Monocytes # 0.4 Eosinophils # 0.6 H Basophils # 0.0 Nucleated Red Blood Cells # 0.0 Sodium Level 135 Potassium Level 4.0 Chloride Level 92 L Carbon Dioxide Level 35 H Anion Gap 12 Blood Urea Nitrogen 18 Creatinine 0.50 L Glucose Level 107 Calcium Level 9.0 Medications Medications Current Medications Ondansetron HCl (Zofran Inj) 4 mg Q6H PRN IV NAUSEA AND/OR VOMITING; Start at 22:00 Acetaminophen (Tylenol Tab) 650 mg Q6H PRN PO PAIN LEVEL 1-3 OR FEVER Last administered on 01/10/17 15:46; Admin Dose 650 MG; Start 01/09/17 at 22:00 Morphine Sulfate (morphine) 2 mg Q4H PRN IV PAIN LEVEL 7-10 Last administered on 01/21/17 22:16; Admin Dose 2 MG; Start 01/09/17 at 22:00 Clonidine (Catapres) 0.1 mg Q6 GTB Last administered on 01/21/17 14:01; Admin Dose 0.1 MG; Start 01/10/17 at 18:00 Diphenhydramine HCl (Benadryl) 25 mg Q6H PRN GTB ITCHING Last administered on 20:54; Admin Dose 25 MG; Start 01/10/17 at 17:00 Folic Acid (Folic Acid) 1 mg DAILY GTB Last administered on 01/22/17 08:53; Admin Dose 1 MG; Start 01/11/17 at 09:00 Acetaminophen/ Hydrocodone Bitart ([place] (5/325)) 1 tab Q4H PRN GTB PAIN LEVEL 4-10/10 Last administered on 01/17/17 18:49; Admin Dose 1 TAB; Start 01/10/17 at 17:00 Lactobacillus Acidophilus (Florajen3 Capsule) 3 each TID PEG Last administered on 01/22/17 08:53; Admin Dose 3 EACH; Start 01/10/17 at 21:00 Lansoprazole (Prevacid) 30 mg DAILY GTB Last administered on 01/22/17 08:54; Admin Dose 30 MG; Start 01/11/17 at 09:00 Metoprolol Tartrate (Lopressor) 50 mg BID GTB Last administered on 01/22/17 08 :54; Admin Dose 50 MG; Start 01/10/17 at 21:00 Oxcarbazepine (Trileptal) 300 mg BID GTB Last administered on 01/22/17 08:54; Admin Dose 300 MG; Start 01/10/17 at 21:00 Metoprolol Tartrate (Lopressor) 5 mg Q4 PRN IV NOTE; Start 01/10/17 at 17:00 Ascorbic Acid (Vitamin C) 500 mg DAILY GTB Last administered on 01/22/17 08:54 ; Admin Dose 500 MG; Start 01/11/17 at 09:00 Diphenhydramine HCl (Benadryl) 25 mg Q6H PRN IV Agitation Last administered on 01/17/17 20:22; Admin Dose 25 MG; Start 01/10/17 at 17:30 Multivitamins 30 ml 30 ml DAILY GTB Last administered on 01/22/17 08:54; Admin Dose 30 ML; Start 01/11/17 at 09:00 Sodium Chloride (NS) 1,000 ml @ 30 mls/hr Q24H IV Last administered on 14:18; Admin Dose 30 MLS/HR; Start 01/10/17 at 18:30 Acetaminophen (Tylenol Liquid) 650 mg Q6H PRN GTB FOR FEVER T>101 Last administered on 01/20/17 15:22; Admin Dose 650 MG; Start 01/10/17 at 18:30 Guaifenesin/ Codeine Phosphate (Robitussin Ac Liquid Cup) 5 ml Q4H PRN PO COUGH Last administered on 01/18/17 05:25; Admin Dose 5 ML; Start 01/17/17 at 12:00 Quetiapine Fumarate (Seroquel) 50 mg Q6 PO Last administered on 01/22/17 05:22 ; Admin Dose 50 MG; Start 01/18/17 at 00:00 Haloperidol 5 mg 5 mg Q6H PRN IM AGITATION Last administered on 01/17/17 22:35 ; Admin Dose 5 MG; Start 01/17/17 at 22:30 Meropenem/Sodium Chloride (Merrem 1 Gm/50 ml (Pmx)) 50 ml @ 100 mls/hr Q8 IVPB Last administered on 01/22/17t 05:22; Admin Dose 100 MLS/HR; Start 01/19/17 at 22:00 Loperamide HCl (Imodium Cap) 2 mg Q6H PRN GTB DIARRHEA; Start 01/20/17 at 16:30 JOSE L BLAKE Jan 22, 2017 09:08
--- NOTE | 2017-01-22 09:14 | CONS ---
Date/Time of Note Date/Time of Note DATE: 01/22/17 TIME: 09:12 Assessment/Plan Assessment/Plan Additional Assessment/Plan 1. Tachycardia - with underlying infection. Better now - in sinus at 60s currently. BETTER now - looks more comfortable on exam. STABLE. 2. Heart failure. The patient has a history of congestive heart failure, does not appear to be in fluid overload. Continue to monitor closely. Diast HF , chronic. GOOD URINE OUTPUT NOW. 3. Chest pain - R/O ND, doubt ischemai. Troponins are negative.No intervention planned. STABLE. 4. Infection. Continue the patient on anti-bx. DECREASED HR now. BETTER - ON ANTI-BX. 5. Respiratory failure. The patient is on a ventilator,continue to follow as needed. Trach care in place. 6. History of pneumonia. Continue pneumonia care per primary team. 7. Anemia. Hemoglobin is fairly stable. No evidence of bleeding now. NO BLEEDING. Consultation Date/Type/Reason Admit Date/Time Jan 09, 2017 at 18:37 Initial Consult Date 01/10/17 Type of Consultation: Pulmonary/critical care Referring Provider: MATTHEW CALDERON MD 24 HR Interval Summary Free Text/Dictation NO acute events - pt looks much better overall- will monitor clinically. ROS: No fever, no chills, no nausea, no vomiting, no diarrhea/constipation No recent weight changes No chest pain, no PND, no orthopnea No dizziness, blurred vision No thirst, no heat or cold intolerance Exam/Review of Systems Vital Signs Vitals Vital Signs Date Time Temp Pulse Resp B/P Pulse Ox O2 Delivery O2 Flow Rate FiO2 01/22/17 09:10 83 01/22/17 07:12 98.5 20 121/60 98 01/22/17 05:14 45 01/19/17 04:00 Mechanical Ventilator Intake and Output 01/21/17 01/21/17 01/22/17 14:59 22:59 06:59 Intake Total 1270 ml 680 ml Output Total 525 ml 800 ml Balance 745 ml -120 ml Exam General: WN/WD/NAD, AOx comfortable HEENT: Unicetric/atraumatic/EOMI (does not follow commands) NECK: trach, no thyromegaly Lymph: no lymphadenopathy HEART: regular with no S3, II/ systolic murmur at apex LUNGS: Coarse sounds ABD: soft, NT, ND, +BS : Intact Neuro: non focal SKIN: chronic changes EXT: trace edema Results Result Diagram: 01/22/17 0608 01/22/17 0608 Results 24 hrs Laboratory Tests Test 01/22/17 06:08 White Blood Count 7.9 # Red Blood Count 3.34 L Hemoglobin 10.1 L Hematocrit 31.2 L Mean Corpuscular Volume 93.4 Mean Corpuscular Hemoglobin 30.2 Mean Corpuscular Hemoglobin Concent 32.4 Red Cell Distribution Width 16.2 H Platelet Count 292 Mean Platelet Volume 10.2 Neutrophils % 73.9 Lymphocytes % 12.9 L Monocytes % 4.8 Eosinophils % 7.4 H Basophils % 0.4 Nucleated Red Blood Cells % 0.0 Neutrophils # (Manual) 5.8 Lymphocytes # 1.0 Monocytes # 0.4 Eosinophils # 0.6 H Basophils # 0.0 Nucleated Red Blood Cells # 0.0 Sodium Level 135 Potassium Level 4.0 Chloride Level 92 L Carbon Dioxide Level 35 H Anion Gap 12 Blood Urea Nitrogen 18 Creatinine 0.50 L Glucose Level 107 Calcium Level 9.0 Medications Medications Current Medications Ondansetron HCl (Zofran Inj) 4 mg Q6H PRN IV NAUSEA AND/OR VOMITING; Start at 22:00 Acetaminophen (Tylenol Tab) 650 mg Q6H PRN PO PAIN LEVEL 1-3 OR FEVER Last administered on 01/10/17 15:46; Admin Dose 650 MG; Start 01/09/17 at 22:00 Morphine Sulfate (morphine) 2 mg Q4H PRN IV PAIN LEVEL 7-10 Last administered on 01/21/17 22:16; Admin Dose 2 MG; Start 01/09/17 at 22:00 Clonidine (Catapres) 0.1 mg Q6 GTB Last administered on 01/21/17 14:01; Admin Dose 0.1 MG; Start 01/10/17 at 18:00 Diphenhydramine HCl (Benadryl) 25 mg Q6H PRN GTB ITCHING Last administered on 20:54; Admin Dose 25 MG; Start 01/10/17 at 17:00 Folic Acid (Folic Acid) 1 mg DAILY GTB Last administered on 01/22/17 08:53; Admin Dose 1 MG; Start 01/11/17 at 09:00 Acetaminophen/ Hydrocodone Bitart ([place] (5/325)) 1 tab Q4H PRN GTB PAIN LEVEL 4-10/10 Last administered on 01/17/17 18:49; Admin Dose 1 TAB; Start 01/10/17 at 17:00 Lactobacillus Acidophilus (Florajen3 Capsule) 3 each TID PEG Last administered on 01/22/17 08:53; Admin Dose 3 EACH; Start 01/10/17 at 21:00 Lansoprazole (Prevacid) 30 mg DAILY GTB Last administered on 01/22/17 08:54; Admin Dose 30 MG; Start 01/11/17 at 09:00 Metoprolol Tartrate (Lopressor) 50 mg BID GTB Last administered on 01/22/17 08 :54; Admin Dose 50 MG; Start 01/10/17 at 21:00 Oxcarbazepine (Trileptal) 300 mg BID GTB Last administered on 01/22/17 08:54; Admin Dose 300 MG; Start 01/10/17 at 21:00 Metoprolol Tartrate (Lopressor) 5 mg Q4 PRN IV NOTE; Start 01/10/17 at 17:00 Ascorbic Acid (Vitamin C) 500 mg DAILY GTB Last administered on 01/22/17 08:54 ; Admin Dose 500 MG; Start 01/11/17 at 09:00 Diphenhydramine HCl (Benadryl) 25 mg Q6H PRN IV Agitation Last administered on 01/17/17 20:22; Admin Dose 25 MG; Start 01/10/17 at 17:30 Multivitamins 30 ml 30 ml DAILY GTB Last administered on 01/22/17 08:54; Admin Dose 30 ML; Start 01/11/17 at 09:00 Sodium Chloride (NS) 1,000 ml @ 30 mls/hr Q24H IV Last administered on 14:18; Admin Dose 30 MLS/HR; Start 01/10/17 at 18:30 Acetaminophen (Tylenol Liquid) 650 mg Q6H PRN GTB FOR FEVER T>101 Last administered on 01/20/17 15:22; Admin Dose 650 MG; Start 01/10/17 at 18:30 Guaifenesin/ Codeine Phosphate (Robitussin Ac Liquid Cup) 5 ml Q4H PRN PO COUGH Last administered on 01/18/17 05:25; Admin Dose 5 ML; Start 01/17/17 at 12:00 Quetiapine Fumarate (Seroquel) 50 mg Q6 PO Last administered on 01/22/17 05:22 ; Admin Dose 50 MG; Start 01/18/17 at 00:00 Haloperidol 5 mg 5 mg Q6H PRN IM AGITATION Last administered on 01/17/17 22:35 ; Admin Dose 5 MG; Start 01/17/17 at 22:30 Meropenem/Sodium Chloride (Merrem 1 Gm/50 ml (Pmx)) 50 ml @ 100 mls/hr Q8 IVPB Last administered on 01/22/17 05:22; Admin Dose 100 MLS/HR; Start 01/19/17 at 22:00 Loperamide HCl (Imodium Cap) 2 mg Q6H PRN GTB DIARRHEA; Start 01/20/17 at 16:30 REED DESIR MD Jan 22, 2017 09:14
[2017-01-22] MEDS: TOBRAMYCIN/0.25NS 300 MG/5 ML INHAL NEB SCH ×2 (09:21→19:50)
[2017-01-22] MEDS: ACYCLOVIR 400 MG TAB GTB SCH ×5 (11:31→21:00)
[2017-01-22] MEDS: SOD CHLORIDE 0.9% 1,000 ML IV SCH (14:30)
[2017-01-22] MEDS: DIPHENHYDRAMINE 25 MG CAP GTB PRN (14:47)
--- NOTE | 2017-01-22 15:52 | PN ---
Date/Time of Note Date/Time of Note DATE: 01/22/17 TIME: 15:46 Assessment/Plan VTE Prophylaxis VTE Prophylaxis Intervention: SCD's Lines/Catheters IV Catheter Type (from Nrs): Peripheral IV Urinary Cath still in place: Yes Reason Cath still needed: urinary retention Assessment/Plan Chief Complaint/Hosp Course Decreased tracheostomy secretion, patient remains calm, awake. Will DC Haldol, continue Seroquel. Assessment/Plan - Possible recurrent sepsis. Dr. Laguerre is following infection disease consultation. Patient is currently on meropenem and tobramycin inhalation. - Pulmonary fibrosis. - Ventilatory dependent respiratory failure with tracheostomy. Dr. Souaz is following in pulmonology consultation. - Chronic diastolic congestive heart failure. - Dysphagia with PEG. - Fatty liver. - Anemia, stool for OB is negative, continue to monitor H&H. Further recommendations based on clinical course. Plan of care discussed with Dr. Austin Problems: Exam/Review of Systems Vital Signs Vitals Vital Signs Date Time Temp Pulse Resp B/P Pulse Ox O2 Delivery O2 Flow Rate FiO2 01/22/17 15:41 98.3 75 20 122/67 100 01/22/17 15:28 45 01/22/17 12:42 Mechanical Ventilator Trach Collar Intake and Output 01/21/17 01/21/17 01/22/17 15:00 23:00 07:00 Intake Total 1270 ml 680 ml Output Total 525 ml 800 ml Balance 745 ml -120 ml Exam Constitutional: alert, non-verbal Head: normocephalic Neck: other Respiratory: diminished breath sounds Cardiovascular: nl pulses Gastrointestinal: non-tender, other (G-tube), soft Extremities: normal pulses Results Result Diagram: 01/22/17 0608 01/22/17 0608 Results 24 hrs Laboratory Tests Test 01/22/17 06:08 White Blood Count 7.9 # Red Blood Count 3.34 L Hemoglobin 10.1 L Hematocrit 31.2 L Mean Corpuscular Volume 93.4 Mean Corpuscular Hemoglobin 30.2 Mean Corpuscular Hemoglobin Concent 32.4 Red Cell Distribution Width 16.2 H Platelet Count 292 Mean Platelet Volume 10.2 Neutrophils % 73.9 Lymphocytes % 12.9 L Monocytes % 4.8 Eosinophils % 7.4 H Basophils % 0.4 Nucleated Red Blood Cells % 0.0 Neutrophils # (Manual) 5.8 Lymphocytes # 1.0 Monocytes # 0.4 Eosinophils # 0.6 H Basophils # 0.0 Nucleated Red Blood Cells # 0.0 Sodium Level 135 Potassium Level 4.0 Chloride Level 92 L Carbon Dioxide Level 35 H Anion Gap 12 Blood Urea Nitrogen 18 Creatinine 0.50 L Glucose Level 107 Calcium Level 9.0 Medications Medications Current Medications Ondansetron HCl (Zofran Inj) 4 mg Q6H PRN IV NAUSEA AND/OR VOMITING; Start at 22:00 Acetaminophen (Tylenol Tab) 650 mg Q6H PRN PO PAIN LEVEL 1-3 OR FEVER Last administered on 01/10/17 15:46; Admin Dose 650 MG; Start 01/09/17 at 22:00 Morphine Sulfate (morphine) 2 mg Q4H PRN IV PAIN LEVEL 7-10 Last administered on 01/21/17 22:16; Admin Dose 2 MG; Start 01/09/17 at 22:00 Clonidine (Catapres) 0.1 mg Q6 GTB Last administered on 01/22/17 12:42; Admin Dose 0.1 MG; Start 01/10/17 at 18:00 Diphenhydramine HCl (Benadryl) 25 mg Q6H PRN GTB ITCHING Last administered on 14:47; Admin Dose 25 MG; Start 01/10/17 at 17:00 Folic Acid (Folic Acid) 1 mg DAILY GTB Last administered on 01/22/17 08:53; Admin Dose 1 MG; Start 01/11/17 at 09:00 Acetaminophen/ Hydrocodone Bitart ([place] (5/325)) 1 tab Q4H PRN GTB PAIN LEVEL 4-10/10 Last administered on 01/17/17 18:49; Admin Dose 1 TAB; Start 01/10/17 at 17:00 Lactobacillus Acidophilus (Florajen3 Capsule) 3 each TID PEG Last administered on 01/22/17 12:41; Admin Dose 3 EACH; Start 01/10/17 at 21:00 Lansoprazole (Prevacid) 30 mg DAILY GTB Last administered on 01/22/17 08:54; Admin Dose 30 MG; Start 01/11/17 at 09:00 Metoprolol Tartrate (Lopressor) 50 mg BID GTB Last administered on 01/22/17 08 :54; Admin Dose 50 MG; Start 01/10/17 at 21:00 Oxcarbazepine (Trileptal) 300 mg BID GTB Last administered on 01/22/17 08:54; Admin Dose 300 MG; Start 01/10/17 at 21:00 Metoprolol Tartrate (Lopressor) 5 mg Q4 PRN IV NOTE; Start 01/10/17 at 17:00 Ascorbic Acid (Vitamin C) 500 mg DAILY GTB Last administered on 01/22/17 08:54 ; Admin Dose 500 MG; Start 01/11/17 at 09:00 Diphenhydramine HCl (Benadryl) 25 mg Q6H PRN IV Agitation Last administered on 01/17/17 20:22; Admin Dose 25 MG; Start 01/10/17 at 17:30 Multivitamins 30 ml 30 ml DAILY GTB Last administered on 01/22/17 08:54; Admin Dose 30 ML; Start 01/11/17 at 09:00 Sodium Chloride (NS) 1,000 ml @ 30 mls/hr Q24H IV Last administered on 14:18; Admin Dose 30 MLS/HR; Start 01/10/17 at 18:30 Acetaminophen (Tylenol Liquid) 650 mg Q6H PRN GTB FOR FEVER T>101 Last administered on 01/20/17 15:22; Admin Dose 650 MG; Start 01/10/17 at 18:30 Guaifenesin/ Codeine Phosphate (Robitussin Ac Liquid Cup) 5 ml Q4H PRN PO COUGH Last administered on 01/18/17 05:25; Admin Dose 5 ML; Start 01/17/17 at 12:00 Quetiapine Fumarate (Seroquel) 50 mg Q6 PO Last administered on 01/22/17 12:42 ; Admin Dose 50 MG; Start 01/18/17 at 00:00 Haloperidol 5 mg 5 mg Q6H PRN IM AGITATION Last administered on 01/17/17 22:35 ; Admin Dose 5 MG; Start 01/17/17 at 22:30 Meropenem/Sodium Chloride (Merrem 1 Gm/50 ml (Pmx)) 50 ml @ 100 mls/hr Q8 IVPB Last administered on 01/22/17 13:46; Admin Dose 100 MLS/HR; Start 01/19/17 at 22:00 Loperamide HCl (Imodium Cap) 2 mg Q6H PRN GTB DIARRHEA; Start 01/20/17 at 16:30 MARIO LAND Jan 22, 2017 15:52
--- NOTE | 2017-01-22 20:14 | CONS ---
Date/Time of Note Date/Time of Note DATE: 01/22/17 TIME: 20:04 Assessment/Plan Assessment/Plan Chief Complaint/Hosp Course assessment/impression - recurrent fever on 01/19/2017 - sepsis vs. SIRS from adverse reaction to lorazepam at 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 coli - recurrent thrush - underlying pulmonary fibrosis - labial herpes, improving - rash/erythroderma to caspofungin according to Pt's RN on 01/20/2017 - VDRF s/p trach 10/09/2016 - s/p recurrent sepsis due to HCAP and UTI - h/o HCAP due to MDR acinetobacter and ESBL+E. Coli - dysphagia s/p PEG placement 10/09/2016 - erythroderma of unclear etiology in 11/2016, improved - h/o CARLOS - h/o recurrent UTI due to ESBL+E. Coli - h/o funguria - h/o bacteremia 10/28/2016 due to enterococcus faecium. Midline was dc'd - h/o bacteremia 12/21/2016 due to enterococcus faecalis - s/p severe sepsis due to UTI, prob aspiration after hematemesis and multiple intubation events, and HCAP - s/p acute UGIB of unclear etiology; s/p EGD 10/01/2016 showing no active bleeding site - HLD and fatty liver - h/o alcoholism - chronic diastolic HF - diverticulosis, seen on CT at [facility] - severe protein calorie malnutrition - h/o fall and trauma to R foot recommendations: - check LFTs - end empiric meropenem (01/19/2017-) and neb tobramycin (01/17/2017-) after the last dose today and then monitor Pt off systemic antibiotics - re-start nystatin for thrush - continue pGT acyclovir for labial herpes infection (01/17/2017-), ordered for 7 days through 01/24/2017 - monitor rash management d/w Pt's RT, Problems: Consultation Date/Type/Reason Admit Date/Time Jan 09, 2017 at 18:37 Initial Consult Date 01/10/17 Type of Consultation: ID Referring Provider: MATTHEW CALDERON MD 24 HR Interval Summary Subjective hx not possible: other (limited ROS) Detailed Summary Eyes: no complaints ENT: sore throat Respiratory: no complaints Gastrointestinal: No diarrhea Skin: erythema (chest wall and inner thigh according to Pt's ), No pruritis Exam/Review of Systems Vital Signs Vitals Vital Signs Date Time Temp Pulse Resp B/P Pulse Ox O2 Delivery O2 Flow Rate FiO2 01/22/17 19:46 75 31 98 45 01/22/17 19:04 97.8 97/53 01/22/17 12:42 Mechanical Ventilator Trach Collar Intake and Output 01/21/17 01/21/17 01/22/17 15:00 23:00 07:00 Intake Total 1270 ml 680 ml Output Total 525 ml 800 ml Balance 745 ml -120 ml Exam Constitutional: frail Psych: nl mood/affect, no complaints Head: atraumatic, normocephalic Eyes: nl conjunctiva, nl lids ENMT: mucosa pink and moist, nl external ears & nose, nl lips & teeth ( herpetic lesions have resolved), nl nasal mucosa & septum, other (trace thrush) Neck: other (trach) Respiratory: crackles/rales Cardiovascular: nl pulses, regular rate and rhythm Gastrointestinal: non-tender, soft Musculoskeletal: nl extremities to inspection Extremities: No edema Neurological: DTR's symmetric, lethargic Skin: other (fading erythema of upper chest wall and inner thigh b/l) Results Result Diagram: 01/22/17 0608 01/22/17 0608 Results 24 hrs Laboratory Tests Test 01/22/17 06:08 White Blood Count 7.9 # Red Blood Count 3.34 L Hemoglobin 10.1 L Hematocrit 31.2 L Mean Corpuscular Volume 93.4 Mean Corpuscular Hemoglobin 30.2 Mean Corpuscular Hemoglobin Concent 32.4 Red Cell Distribution Width 16.2 H Platelet Count 292 Mean Platelet Volume 10.2 Neutrophils % 73.9 Lymphocytes % 12.9 L Monocytes % 4.8 Eosinophils % 7.4 H Basophils % 0.4 Nucleated Red Blood Cells % 0.0 Neutrophils # (Manual) 5.8 Lymphocytes # 1.0 Monocytes # 0.4 Eosinophils # 0.6 H Basophils # 0.0 Nucleated Red Blood Cells # 0.0 Sodium Level 135 Potassium Level 4.0 Chloride Level 92 L Carbon Dioxide Level 35 H Anion Gap 12 Blood Urea Nitrogen 18 Creatinine 0.50 L Glucose Level 107 Calcium Level 9.0 Medications Medications Current Medications Ondansetron HCl (Zofran Inj) 4 mg Q6H PRN IV NAUSEA AND/OR VOMITING; Start at 22:00 Acetaminophen (Tylenol Tab) 650 mg Q6H PRN PO PAIN LEVEL 1-3 OR FEVER Last administered on 01/10/17 15:46; Admin Dose 650 MG; Start 01/09/17 at 22:00 Morphine Sulfate (morphine) 2 mg Q4H PRN IV PAIN LEVEL 7-10 Last administered on 01/21/17 22:16; Admin Dose 2 MG; Start 01/09/17 at 22:00 Clonidine (Catapres) 0.1 mg Q6 GTB Last administered on 01/22/17 17:21; Admin Dose 0.1 MG; Start 01/10/17 at 18:00 Diphenhydramine HCl (Benadryl) 25 mg Q6H PRN GTB ITCHING Last administered on 14:47; Admin Dose 25 MG; Start 01/10/17 at 17:00 Folic Acid (Folic Acid) 1 mg DAILY GTB Last administered on 01/22/17 08:53; Admin Dose 1 MG; Start 01/11/17 at 09:00 Acetaminophen/ Hydrocodone Bitart ([place] (5/325)) 1 tab Q4H PRN GTB PAIN LEVEL 4-10/10 Last administered on 01/17/17 18:49; Admin Dose 1 TAB; Start 01/10/17 at 17:00 Lactobacillus Acidophilus (Florajen3 Capsule) 3 each TID PEG Last administered on 01/22/17 12:41; Admin Dose 3 EACH; Start 01/10/17 at 21:00 Lansoprazole (Prevacid) 30 mg DAILY GTB Last administered on 01/22/17 08:54; Admin Dose 30 MG; Start 01/11/17 at 09:00 Metoprolol Tartrate (Lopressor) 50 mg BID GTB Last administered on 01/22/17 08 :54; Admin Dose 50 MG; Start 01/10/17 at 21:00 Oxcarbazepine (Trileptal) 300 mg BID GTB Last administered on 01/22/17 08:54; Admin Dose 300 MG; Start 01/10/17 at 21:00 Metoprolol Tartrate (Lopressor) 5 mg Q4 PRN IV NOTE; Start 01/10/17 at 17:00 Ascorbic Acid (Vitamin C) 500 mg DAILY GTB Last administered on 01/22/17 08:54 ; Admin Dose 500 MG; Start 01/11/17 at 09:00 Diphenhydramine HCl (Benadryl) 25 mg Q6H PRN IV Agitation Last administered on 01/17/17 20:22; Admin Dose 25 MG; Start 01/10/17 at 17:30 Multivitamins 30 ml 30 ml DAILY GTB Last administered on 01/22/17 08:54; Admin Dose 30 ML; Start 01/11/17 at 09:00 Sodium Chloride (NS) 1,000 ml @ 30 mls/hr Q24H IV Last administered on 14:18; Admin Dose 30 MLS/HR; Start 01/10/17 at 18:30 Acetaminophen (Tylenol Liquid) 650 mg Q6H PRN GTB FOR FEVER T>101 Last administered on 01/20/17 15:22; Admin Dose 650 MG; Start 01/10/17 at 18:30 Guaifenesin/ Codeine Phosphate (Robitussin Ac Liquid Cup) 5 ml Q4H PRN PO COUGH Last administered on 01/18/17 05:25; Admin Dose 5 ML; Start 01/17/17 at 12:00 Quetiapine Fumarate 50 mg 50 mg Q6 PO Last administered on 01/22/17 17:20; Admin Dose 50 MG; Start 01/18/17 at 00:00 Meropenem/Sodium Chloride (Merrem 1 Gm/50 ml (Pmx)) 50 ml @ 100 mls/hr Q8 IVPB Last administered on 01/22/17 13:46; Admin Dose 100 MLS/HR; Start 01/19/17 at 22:00 Loperamide HCl (Imodium Cap) 2 mg Q6H PRN GTB DIARRHEA; Start 01/20/17 at 16:30 MADISON PIERRE M.D. Jan 22, 2017 20:14
[2017-01-22] MEDS: NYSTATIN SUSP 5 ML CUP PO SCH (22:15)
[2017-01-22] MEDS: morphine 2 MG INJ IV PRN (22:27)
[2017-01-23] VITALS (23 sets, daily range): BP systolic 114–150; BP diastolic 59–74; PULSE 70–89; RESP 18–69
[2017-01-23] MEDS: QUETIAPINE 25 MG TAB PO SCH ×5 (00:58→23:44)
[2017-01-23] MEDS: IPRATROPIUM (HFA) 12.9 GM INHALER INH SCH ×6 (01:00→22:04)
[2017-01-23] MEDS: ALBUTEROL 18 GM INHALER INH SCH ×6 (01:14→22:04)
[2017-01-23 08:41] LABS: BASOPHILS % 0.3 % (0.0-2.0); EOSINOPHILS # 0.4 10^3/ul (0.0-0.5); EOSINOPHILS % 4.6 % (0.0-7.0); HEMATOCRIT 30.2 % (42.0-52.0); HEMOGLOBIN 9.9 g/dl (14.0-18.0); LYMPHOCYTES # 0.9 10^3/ul (0.8-2.9); LYMPHOCYTES % 9.6 % (15.0-51.0); MEAN CORPUSCULAR HEMOGLOBIN 30.4 pg (29.0-33.0); MEAN CORPUSCULAR HGB CONC 32.8 g/dl (32.0-37.0); MEAN CORPUSCULAR VOLUME 92.6 fl (82.0-101.0); MEAN PLATELET VOLUME 10.1 fl (7.4-10.4); MONOCYTE # 0.5 10^3/ul (0.3-0.9); MONOCYTES % 5.4 % (0.0-11.0); NEUTROPHILS % 79.8 % (39.0-77.0); PLATELET COUNT 300 10^3/UL (140-415); RED BLOOD COUNT 3.26 10^6/ul (4.70-6.10); RED CELL DISTRIBUTION WIDTH 15.7 % (11.5-14.5); WHITE BLOOD COUNT 8.9 10^3/ul (4.8-10.8)
[2017-01-23 09:12] LABS: ALBUMIN 2.7 g/dl (3.3-4.9); ALBUMIN/GLOBULIN RATIO 0.62; CALCIUM 9.2 mg/dl (8.4-10.2); CREATININE 0.48 mg/dl (0.61-1.24); POTASSIUM 4.1 mmol/L (3.5-5.1)
[2017-01-23] MEDS: METOPROLOL 50 MG TAB GTB SCH ×2 (09:29→20:36)
[2017-01-23] MEDS: LANSOPRAZOLE 30 MG CAP GTB SCH (09:30)
[2017-01-23] MEDS: ACYCLOVIR 400 MG TAB GTB SCH ×5 (09:30→20:37)
[2017-01-23] MEDS: ASCORBIC ACID 500 MG TAB GTB SCH (09:31)
[2017-01-23] MEDS: OXCARBAZEPINE 300 MG TAB GTB SCH ×2 (09:32→20:36)
[2017-01-23] MEDS: FOLIC ACID 1 MG TAB GTB SCH (09:33)
[2017-01-23] MEDS: NYSTATIN SUSP 5 ML CUP PO SCH ×2 (09:33→20:36)
[2017-01-23] MEDS: MULTIVITAMINS 30 ML CUP GTB SCH (09:34)
[2017-01-23] MEDS: L ACIDOPHIL/B LACTIS/B LONGUM CAPSULE PEG SCH ×3 (09:34→20:36)
[2017-01-23] MEDS: SOD CHLORIDE 0.9% 1,000 ML IV SCH (13:58)
--- NOTE | 2017-01-23 14:00 | CONS ---
Date/Time of Note Date/Time of Note DATE: 01/23/17 TIME: 13:58 Consultation Date/Type/Reason Admit Date/Time Jan 09, 2017 at 18:37 Initial Consult Date 01/10/17 Type of Consultation: Pulmonary Referring Provider: MATTHEW CALDERON MD 24 HR Interval Summary Free Text/Dictation Patient condition stable. Remains awake alert. Has remained hemodynamically stable. General exam; elderly male, on ventilator via tracheostomy, currently in no distress. HEENT exam; supple neck, tracheostomy in place. Patient is edentulous. Chest exam; bilateral crackles. S1-S2 audible, no murmurs. Regular rhythm. Abdomen exam; soft, no organomegaly. G-tube in place. Bowel sounds audible. Extremity exam; no peripheral edema. [employer] exam; no focal deficit. Ventilator setting; AC of 20, tidal volume 500, PEEP of 5, 45% FiO2. Assessment and recommendations; 1. P patient admitted with shortness of breath due to severe end-stage urinary fibrosis. 2. Status post pneumonia, off antibiotics now. 3. Chronic respiratory failure. Continue current treatment. Consider discharge. Exam/Review of Systems Vital Signs Vitals Vital Signs Date Time Temp Pulse Resp B/P Pulse Ox O2 Delivery O2 Flow Rate FiO2 01/23/17 13:16 74 30 97 45 01/23/17 12:11 97.6 114/59 01/22/17 12:42 Mechanical Ventilator Trach Collar Intake and Output 01/22/17 01/22/17 01/23/17 15:00 23:00 07:00 Intake Total 630 ml 960 ml Output Total 1300 ml 1350 ml Balance -670 ml -390 ml Results Result Diagram: 01/23/17 0814 01/23/17 0814 Results 24 hrs Laboratory Tests Test 01/23/17 08:14 White Blood Count 8.9 Red Blood Count 3.26 L Hemoglobin 9.9 L Hematocrit 30.2 L Mean Corpuscular Volume 92.6 Mean Corpuscular Hemoglobin 30.4 Mean Corpuscular Hemoglobin Concent 32.8 Red Cell Distribution Width 15.7 H Platelet Count 300 Mean Platelet Volume 10.1 Neutrophils % 79.8 H Lymphocytes % 9.6 L Monocytes % 5.4 Eosinophils % 4.6 Basophils % 0.3 Nucleated Red Blood Cells % 0.0 Neutrophils # (Manual) 7.1 Lymphocytes # 0.9 Monocytes # 0.5 Eosinophils # 0.4 Basophils # 0.0 Nucleated Red Blood Cells # 0.0 Sodium Level 137 Potassium Level 4.1 Chloride Level 93 L Carbon Dioxide Level 35 H Anion Gap 13 Blood Urea Nitrogen 15 Creatinine 0.48 L Glucose Level 132 Calcium Level 9.2 Total Bilirubin 0.0 L Direct Bilirubin 0.00 Indirect Bilirubin 0.0 Aspartate Amino Transf (AST/SGOT) 66 H Alanine Aminotransferase (ALT/SGPT) 73 H Alkaline Phosphatase 147 H Total Protein 7.0 Albumin 2.7 L Globulin 4.30 H Albumin/Globulin Ratio 0.62 Medications Medications Current Medications Ondansetron HCl (Zofran Inj) 4 mg Q6H PRN IV NAUSEA AND/OR VOMITING; Start at 22:00 Acetaminophen (Tylenol Tab) 650 mg Q6H PRN PO PAIN LEVEL 1-3 OR FEVER Last administered on 01/10/17 15:46; Admin Dose 650 MG; Start 01/09/17 at 22:00 Morphine Sulfate (morphine) 2 mg Q4H PRN IV PAIN LEVEL 7-10 Last administered on 01/22/17 22:27; Admin Dose 2 MG; Start 01/09/17 at 22:00 Clonidine (Catapres) 0.1 mg Q6 GTB Last administered on 01/23/17 12:25; Admin Dose 0.1 MG; Start 01/10/17 at 18:00 Diphenhydramine HCl (Benadryl) 25 mg Q6H PRN GTB ITCHING Last administered on 14:47; Admin Dose 25 MG; Start 01/10/17 at 17:00 Folic Acid (Folic Acid) 1 mg DAILY GTB Last administered on 01/23/17 09:33; Admin Dose 1 MG; Start 01/11/17 at 09:00 Acetaminophen/ Hydrocodone Bitart ([place] (5/325)) 1 tab Q4H PRN GTB PAIN LEVEL 4-10/10 Last administered on 01/17/17 18:49; Admin Dose 1 TAB; Start 01/10/17 at 17:00 Lactobacillus Acidophilus (Florajen3 Capsule) 3 each TID PEG Last administered on 01/23/17 09:34; Admin Dose 3 EACH; Start 01/10/17 at 21:00 Lansoprazole (Prevacid) 30 mg DAILY GTB Last administered on 01/23/17 09:30; Admin Dose 30 MG; Start 01/11/17 at 09:00 Metoprolol Tartrate (Lopressor) 50 mg BID GTB Last administered on 01/23/17 09 :29; Admin Dose 50 MG; Start 01/10/17 at 21:00 Oxcarbazepine (Trileptal) 300 mg BID GTB Last administered on 01/23/17 09:32; Admin Dose 300 MG; Start 01/10/17 at 21:00 Metoprolol Tartrate (Lopressor) 5 mg Q4 PRN IV NOTE; Start 01/10/17 at 17:00 Ascorbic Acid (Vitamin C) 500 mg DAILY GTB Last administered on 01/23/17 09:31 ; Admin Dose 500 MG; Start 01/11/17 at 09:00 Diphenhydramine HCl (Benadryl) 25 mg Q6H PRN IV Agitation Last administered on 01/17/17 20:22; Admin Dose 25 MG; Start 01/10/17 at 17:30 Multivitamins 30 ml 30 ml DAILY GTB Last administered on 01/23/17 09:34; Admin Dose 30 ML; Start 01/11/17 at 09:00 Sodium Chloride (NS) 1,000 ml @ 30 mls/hr Q24H IV Last administered on 14:18; Admin Dose 30 MLS/HR; Start 01/10/17 at 18:30 Acetaminophen (Tylenol Liquid) 650 mg Q6H PRN GTB FOR FEVER T>101 Last administered on 01/20/17 15:22; Admin Dose 650 MG; Start 01/10/17 at 18:30 Guaifenesin/ Codeine Phosphate (Robitussin Ac Liquid Cup) 5 ml Q4H PRN PO COUGH Last administered on 01/18/17 05:25; Admin Dose 5 ML; Start 01/17/17 at 12:00 Quetiapine Fumarate (Seroquel) 50 mg Q6 PO Last administered on 01/23/17 12:23 ; Admin Dose 50 MG; Start 01/18/17 at 00:00 Loperamide HCl (Imodium Cap) 2 mg Q6H PRN GTB DIARRHEA; Start 01/20/17 at 16:30 Nystatin (Nystatin Susp) 5 ml Q12 PO Last administered on 01/23/17t 09:33; Admin Dose 5 ML; Start 01/22/17 at 21:00 JOSE L BLAKE Jan 23, 2017 14:00
--- NOTE | 2017-01-23 15:37 | PN ---
Date/Time of Note Date/Time of Note DATE: 01/23/17 TIME: 15:36 Assessment/Plan VTE Prophylaxis VTE Prophylaxis Intervention: SCD's Lines/Catheters IV Catheter Type (from Nrs): Peripheral IV Urinary Cath still in place: Yes Reason Cath still needed: urinary retention Assessment/Plan Chief Complaint/Hosp Course Patient remains hemodynamically stable, afebrile. DC planning Assessment/Plan - Possible recurrent sepsis. S/pt treatment with antibiotics. Dr. Laguerre is following infection disease consultation. - Pulmonary fibrosis. - Ventilatory dependent respiratory failure with tracheostomy. Dr. Souza is following in pulmonology consultation. - Chronic diastolic congestive heart failure. - Dysphagia with PEG. - Fatty liver. - Anemia, stool for OB is negative, continue to monitor H&H. Further recommendations based on clinical course. Plan of care discussed with Dr. Austin Problems: Exam/Review of Systems Vital Signs Vitals Vital Signs Date Time Temp Pulse Resp B/P Pulse Ox O2 Delivery O2 Flow Rate FiO2 01/23/17 15:29 97.7 80 18 126/71 01/23/17 13:16 97 45 01/22/17 12:42 Mechanical Ventilator Trach Collar Intake and Output 01/22/17 01/22/17 01/23/17 15:00 23:00 07:00 Intake Total 630 ml 960 ml Output Total 1300 ml 1350 ml Balance -670 ml -390 ml Exam Constitutional: alert, non-verbal Head: normocephalic Neck: other Respiratory: diminished breath sounds Cardiovascular: nl pulses Gastrointestinal: non-tender, other (G-tube), soft Extremities: normal pulses Results Result Diagram: 01/23/17 0814 01/23/17 0814 Results 24 hrs Laboratory Tests Test 01/23/17 08:14 White Blood Count 8.9 Red Blood Count 3.26 L Hemoglobin 9.9 L Hematocrit 30.2 L Mean Corpuscular Volume 92.6 Mean Corpuscular Hemoglobin 30.4 Mean Corpuscular Hemoglobin Concent 32.8 Red Cell Distribution Width 15.7 H Platelet Count 300 Mean Platelet Volume 10.1 Neutrophils % 79.8 H Lymphocytes % 9.6 L Monocytes % 5.4 Eosinophils % 4.6 Basophils % 0.3 Nucleated Red Blood Cells % 0.0 Neutrophils # (Manual) 7.1 Lymphocytes # 0.9 Monocytes # 0.5 Eosinophils # 0.4 Basophils # 0.0 Nucleated Red Blood Cells # 0.0 Sodium Level 137 Potassium Level 4.1 Chloride Level 93 L Carbon Dioxide Level 35 H Anion Gap 13 Blood Urea Nitrogen 15 Creatinine 0.48 L Glucose Level 132 Calcium Level 9.2 Total Bilirubin 0.0 L Direct Bilirubin 0.00 Indirect Bilirubin 0.0 Aspartate Amino Transf (AST/SGOT) 66 H Alanine Aminotransferase (ALT/SGPT) 73 H Alkaline Phosphatase 147 H Total Protein 7.0 Albumin 2.7 L Globulin 4.30 H Albumin/Globulin Ratio 0.62 Medications Medications Current Medications Ondansetron HCl (Zofran Inj) 4 mg Q6H PRN IV NAUSEA AND/OR VOMITING; Start at 22:00 Acetaminophen (Tylenol Tab) 650 mg Q6H PRN PO PAIN LEVEL 1-3 OR FEVER Last administered on 01/10/17 15:46; Admin Dose 650 MG; Start 01/09/17 at 22:00 Morphine Sulfate (morphine) 2 mg Q4H PRN IV PAIN LEVEL 7-10 Last administered on 01/22/17 22:27; Admin Dose 2 MG; Start 01/09/17 at 22:00 Clonidine (Catapres) 0.1 mg Q6 GTB Last administered on 01/23/17 12:25; Admin Dose 0.1 MG; Start 01/10/17 at 18:00 Diphenhydramine HCl (Benadryl) 25 mg Q6H PRN GTB ITCHING Last administered on 14:47; Admin Dose 25 MG; Start 01/10/17 at 17:00 Folic Acid (Folic Acid) 1 mg DAILY GTB Last administered on 01/23/17 09:33; Admin Dose 1 MG; Start 01/11/17 at 09:00 Acetaminophen/ Hydrocodone Bitart ([place] (5/325)) 1 tab Q4H PRN GTB PAIN LEVEL 4-10/10 Last administered on 01/17/17 18:49; Admin Dose 1 TAB; Start 01/10/17 at 17:00 Lactobacillus Acidophilus (Florajen3 Capsule) 3 each TID PEG Last administered on 01/23/17 13:58; Admin Dose 3 EACH; Start 01/10/17 at 21:00 Lansoprazole (Prevacid) 30 mg DAILY GTB Last administered on 01/23/17 09:30; Admin Dose 30 MG; Start 01/11/17 at 09:00 Metoprolol Tartrate (Lopressor) 50 mg BID GTB Last administered on 01/23/17 09 :29; Admin Dose 50 MG; Start 01/10/17 at 21:00 Oxcarbazepine (Trileptal) 300 mg BID GTB Last administered on 01/23/17 09:32; Admin Dose 300 MG; Start 01/10/17 at 21:00 Metoprolol Tartrate (Lopressor) 5 mg Q4 PRN IV NOTE; Start 01/10/17 at 17:00 Ascorbic Acid (Vitamin C) 500 mg DAILY GTB Last administered on 01/23/17 09:31 ; Admin Dose 500 MG; Start 01/11/17 at 09:00 Diphenhydramine HCl (Benadryl) 25 mg Q6H PRN IV Agitation Last administered on 01/17/17 20:22; Admin Dose 25 MG; Start 01/10/17 at 17:30 Multivitamins 30 ml 30 ml DAILY GTB Last administered on 01/23/17 09:34; Admin Dose 30 ML; Start 01/11/17 at 09:00 Sodium Chloride (NS) 1,000 ml @ 30 mls/hr Q24H IV Last administered on 13:58; Admin Dose 30 MLS/HR; Start 01/10/17 at 18:30 Acetaminophen (Tylenol Liquid) 650 mg Q6H PRN GTB FOR FEVER T>101 Last administered on 01/20/17 15:22; Admin Dose 650 MG; Start 01/10/17 at 18:30 Guaifenesin/ Codeine Phosphate (Robitussin Ac Liquid Cup) 5 ml Q4H PRN PO COUGH Last administered on 01/18/17 05:25; Admin Dose 5 ML; Start 01/17/17 at 12:00 Quetiapine Fumarate (Seroquel) 50 mg Q6 PO Last administered on 01/23/17 12:23 ; Admin Dose 50 MG; Start 01/18/17 at 00:00 Loperamide HCl (Imodium Cap) 2 mg Q6H PRN GTB DIARRHEA; Start 01/20/17 at 16:30 Nystatin (Nystatin Susp) 5 ml Q12 PO Last administered on 01/23/17t 09:33; Admin Dose 5 ML; Start 01/22/17 at 21:00 MARIO LAND Jan 23, 2017 15:37
--- NOTE | 2017-01-23 17:26 | CONS ---
Date/Time of Note Date/Time of Note DATE: 01/23/17 TIME: 17:24 Assessment/Plan Assessment/Plan Chief Complaint/Hosp Course IMP: 1.Diastolic CHF 2.HTN 3.Resp failure-chronic s/p trach 4.Pulmonary fibrosis 5. PNA 6.UTI 7. Labial herpes Recc: -Tele -Continue BB as tolerated -Continue abx's and bronchodilators -Continue acyclovir -Follow volume status closely Problems: Consultation Date/Type/Reason Admit Date/Time Jan 09, 2017 at 18:37 Initial Consult Date 01/10/17 Type of Consultation: cardiology Reason for Consultation tachycardia Referring Provider: MATTHEW CALDERON MD Exam/Review of Systems Vital Signs Vitals Vital Signs Date Time Temp Pulse Resp B/P Pulse Ox O2 Delivery O2 Flow Rate FiO2 01/23/17 16:35 81 01/23/17 15:47 24 98 45 01/23/17 15:29 97.7 126/71 01/22/17 12:42 Mechanical Ventilator Trach Collar Intake and Output 01/22/17 01/22/17 01/23/17 15:00 23:00 07:00 Intake Total 630 ml 960 ml Output Total 1300 ml 1350 ml Balance -670 ml -390 ml Exam Review of Systems: CONSTITUTIONAL: No fevers, chills. PULMONARY: No sob CARDIOVASCULAR: No chest pain/palpitations GASTROINTESTINAL: No nausea/vomiting. GENITOURINARY: No hematuria/dysuria. MUSCULOSKELETAL: No myagias/arthalgias. PSYCHIATRIC: The patient denies depression. NEUROLOGIC: No weakness Constitutional: alert, oriented Psych: no complaints Head: normocephalic ENMT: mucosa pink and moist Neck: jvd (9 cm water), supple Respiratory: diminished breath sounds Cardiovascular: regular rate and rhythm Gastrointestinal: non-tender, soft Musculoskeletal: muscle tone (normal) Extremities: edema (none) Neurological: other Results Result Diagram: 01/23/17 0814 01/23/17 0814 Results 24 hrs Laboratory Tests Test 01/23/17 08:14 White Blood Count 8.9 Red Blood Count 3.26 L Hemoglobin 9.9 L Hematocrit 30.2 L Mean Corpuscular Volume 92.6 Mean Corpuscular Hemoglobin 30.4 Mean Corpuscular Hemoglobin Concent 32.8 Red Cell Distribution Width 15.7 H Platelet Count 300 Mean Platelet Volume 10.1 Neutrophils % 79.8 H Lymphocytes % 9.6 L Monocytes % 5.4 Eosinophils % 4.6 Basophils % 0.3 Nucleated Red Blood Cells % 0.0 Neutrophils # (Manual) 7.1 Lymphocytes # 0.9 Monocytes # 0.5 Eosinophils # 0.4 Basophils # 0.0 Nucleated Red Blood Cells # 0.0 Sodium Level 137 Potassium Level 4.1 Chloride Level 93 L Carbon Dioxide Level 35 H Anion Gap 13 Blood Urea Nitrogen 15 Creatinine 0.48 L Glucose Level 132 Calcium Level 9.2 Total Bilirubin 0.0 L Direct Bilirubin 0.00 Indirect Bilirubin 0.0 Aspartate Amino Transf (AST/SGOT) 66 H Alanine Aminotransferase (ALT/SGPT) 73 H Alkaline Phosphatase 147 H Total Protein 7.0 Albumin 2.7 L Globulin 4.30 H Albumin/Globulin Ratio 0.62 Medications Medications Current Medications Ondansetron HCl (Zofran Inj) 4 mg Q6H PRN IV NAUSEA AND/OR VOMITING; Start at 22:00 Acetaminophen (Tylenol Tab) 650 mg Q6H PRN PO PAIN LEVEL 1-3 OR FEVER Last administered on 01/10/17 15:46; Admin Dose 650 MG; Start 01/09/17 at 22:00 Morphine Sulfate (morphine) 2 mg Q4H PRN IV PAIN LEVEL 7-10 Last administered on 01/22/17 22:27; Admin Dose 2 MG; Start 01/09/17 at 22:00 Clonidine (Catapres) 0.1 mg Q6 GTB Last administered on 01/23/17 12:25; Admin Dose 0.1 MG; Start 01/10/17 at 18:00 Diphenhydramine HCl (Benadryl) 25 mg Q6H PRN GTB ITCHING Last administered on 14:47; Admin Dose 25 MG; Start 01/10/17 at 17:00 Folic Acid (Folic Acid) 1 mg DAILY GTB Last administered on 01/23/17 09:33; Admin Dose 1 MG; Start 01/11/17 at 09:00 Acetaminophen/ Hydrocodone Bitart ([place] (5/325)) 1 tab Q4H PRN GTB PAIN LEVEL 4-10/10 Last administered on 01/17/17 18:49; Admin Dose 1 TAB; Start 01/10/17 at 17:00 Lactobacillus Acidophilus (Florajen3 Capsule) 3 each TID PEG Last administered on 01/23/17 13:58; Admin Dose 3 EACH; Start 01/10/17 at 21:00 Lansoprazole (Prevacid) 30 mg DAILY GTB Last administered on 01/23/17 09:30; Admin Dose 30 MG; Start 01/11/17 at 09:00 Metoprolol Tartrate (Lopressor) 50 mg BID GTB Last administered on 01/23/17 09 :29; Admin Dose 50 MG; Start 01/10/17 at 21:00 Oxcarbazepine (Trileptal) 300 mg BID GTB Last administered on 01/23/17 09:32; Admin Dose 300 MG; Start 01/10/17 at 21:00 Metoprolol Tartrate (Lopressor) 5 mg Q4 PRN IV NOTE; Start 01/10/17 at 17:00 Ascorbic Acid (Vitamin C) 500 mg DAILY GTB Last administered on 01/23/17 09:31 ; Admin Dose 500 MG; Start 01/11/17 at 09:00 Diphenhydramine HCl (Benadryl) 25 mg Q6H PRN IV Agitation Last administered on 01/17/17 20:22; Admin Dose 25 MG; Start 01/10/17 at 17:30 Multivitamins 30 ml 30 ml DAILY GTB Last administered on 01/23/17 09:34; Admin Dose 30 ML; Start 01/11/17 at 09:00 Sodium Chloride (NS) 1,000 ml @ 30 mls/hr Q24H IV Last administered on 13:58; Admin Dose 30 MLS/HR; Start 01/10/17 at 18:30 Acetaminophen (Tylenol Liquid) 650 mg Q6H PRN GTB FOR FEVER T>101 Last administered on 01/20/17 15:22; Admin Dose 650 MG; Start 01/10/17 at 18:30 Guaifenesin/ Codeine Phosphate (Robitussin Ac Liquid Cup) 5 ml Q4H PRN PO COUGH Last administered on 01/18/17 05:25; Admin Dose 5 ML; Start 01/17/17 at 12:00 Quetiapine Fumarate (Seroquel) 50 mg Q6 PO Last administered on 01/23/17 12:23 ; Admin Dose 50 MG; Start 01/18/17 at 00:00 Loperamide HCl (Imodium Cap) 2 mg Q6H PRN GTB DIARRHEA; Start 01/20/17 at 16:30 Nystatin (Nystatin Susp) 5 ml Q12 PO Last administered on 01/23/17 09:33; Admin Dose 5 ML; Start 01/22/17 at 21:00 CLOVIS LEON Jan 23, 2017 17:26
--- NOTE | 2017-01-23 20:33 | CONS ---
[facility] HCIS Consult Follow up SOAP Patient Name: Kevin Brooks Unit Number: [id number] Date of : 1945 Patient Status: Admitted Inpatient Attending Doctor: Matthew Calderon MD Edit: MADISON CHILDERS M.D. on 01/24/17 @ 10:00 Liseth attestation: I discussed the management with CARSON Brand and agree with her note. Date/Time of Note Date/Time of Note DATE: 01/23/17 TIME: 20:12 Consult Date/Type/Reason Admit Date/Time Jan 09, 2017 at 18:37 Initial Consult Date 01/10/17 Type of Consultation: INFECTIOUS DISEASE Ordering Provider: MATTHEW CALDERON MD Objective Vital Signs Date Time Temp Pulse Resp B/P Pulse Ox O2 Delivery O2 Flow Rate FiO2 01/23/17 17:42 76 24 98 45 01/23/17 15:29 97.7 126/71 01/22/17 12:42 Mechanical Ventilator Trach Collar Intake and Output 01/22/17 01/22/17 01/23/17 15:00 23:00 07:00 Intake Total 630 ml 960 ml Output Total 1300 ml 1350 ml Balance -670 ml -390 ml Exam Constitutional: frail, male lying in bed, tracheostomy and ventilator supported Head: normocephalic Eyes: normal conjunctiva and lids ENMT: normal external ears & nose, normal nasal mucosa & septum Neck: tracheostomy in place Respiratory: ventilator sounds Cardiovascular: normal pulses, regular rate and rhythm Gastrointestinal: soft, non-tender, non-distended, GT in place, TF infusing Genita-urinary: pickens catheter in place Musculoskeletal: normal extremities on inspection Extremities: warm, dry, palpable pulses, no edema, saline lock left hand, no erythema or swelling Neurological: awake and alert, responsive to command Skin: warm, dry, mild erythema of the face, anterior chest & thighs Results/Medications Result Diagram: 01/23/1714 01/23/17 0814 Results 24 hrs Laboratory Tests Test 01/23/17 08:14 White Blood Count 8.9 Red Blood Count 3.26 L Hemoglobin 9.9 L Hematocrit 30.2 L Mean Corpuscular Volume 92.6 Mean Corpuscular Hemoglobin 30.4 Mean Corpuscular Hemoglobin Concent 32.8 Red Cell Distribution Width 15.7 H Platelet Count 300 Mean Platelet Volume 10.1 Neutrophils % 79.8 H Lymphocytes % 9.6 L Monocytes % 5.4 Eosinophils % 4.6 Basophils % 0.3 Nucleated Red Blood Cells % 0.0 Neutrophils # (Manual) 7.1 Lymphocytes # 0.9 Monocytes # 0.5 Eosinophils # 0.4 Basophils # 0.0 Nucleated Red Blood Cells # 0.0 Sodium Level 137 Potassium Level 4.1 Chloride Level 93 L Carbon Dioxide Level 35 H Anion Gap 13 Blood Urea Nitrogen 15 Creatinine 0.48 L Glucose Level 132 Calcium Level 9.2 Total Bilirubin 0.0 L Direct Bilirubin 0.00 Indirect Bilirubin 0.0 Aspartate Amino Transf (AST/SGOT) 66 H Alanine Aminotransferase (ALT/SGPT) 73 H Alkaline Phosphatase 147 H Total Protein 7.0 Albumin 2.7 L Globulin 4.30 H Albumin/Globulin Ratio 0.62 Medications Current Medications Ondansetron HCl (Zofran Inj) 4 mg Q6H PRN IV NAUSEA AND/OR VOMITING; Start at 22:00 Acetaminophen (Tylenol Tab) 650 mg Q6H PRN PO PAIN LEVEL 1-3 OR FEVER Last administered on 01/10/17 15:46; Admin Dose 650 MG; Start 01/09/17 at 22:00 Morphine Sulfate (morphine) 2 mg Q4H PRN IV PAIN LEVEL 7-10 Last administered on 01/22/17 22:27; Admin Dose 2 MG; Start 01/09/17 at 22:00 Clonidine (Catapres) 0.1 mg Q6 GTB Last administered on 01/23/17 17:53; Admin Dose 0.1 MG; Start 01/10/17 at 18:00 Diphenhydramine HCl (Benadryl) 25 mg Q6H PRN GTB ITCHING Last administered on 14:47; Admin Dose 25 MG; Start 01/10/17 at 17:00 Folic Acid (Folic Acid) 1 mg DAILY GTB Last administered on 01/23/17 09:33; Admin Dose 1 MG; Start 01/11/17 at 09:00 Acetaminophen/ Hydrocodone Bitart ([place] (5/325)) 1 tab Q4H PRN GTB PAIN LEVEL 4-10/10 Last administered on 01/17/17 18:49; Admin Dose 1 TAB; Start 01/10/17 at 17:00 Lactobacillus Acidophilus (Florajen3 Capsule) 3 each TID PEG Last administered on 01/23/17 13:58; Admin Dose 3 EACH; Start 01/10/17 at 21:00 Lansoprazole (Prevacid) 30 mg DAILY GTB Last administered on 01/23/17 09:30; Admin Dose 30 MG; Start 01/11/17 at 09:00 Metoprolol Tartrate (Lopressor) 50 mg BID GTB Last administered on 01/23/17 09 :29; Admin Dose 50 MG; Start 01/10/17 at 21:00 Oxcarbazepine (Trileptal) 300 mg BID GTB Last administered on 01/23/17 09:32; Admin Dose 300 MG; Start 01/10/17 at 21:00 Metoprolol Tartrate (Lopressor) 5 mg Q4 PRN IV NOTE; Start 01/10/17 at 17:00 Ascorbic Acid (Vitamin C) 500 mg DAILY GTB Last administered on 01/23/17 09:31 ; Admin Dose 500 MG; Start 01/11/17 at 09:00 Diphenhydramine HCl (Benadryl) 25 mg Q6H PRN IV Agitation Last administered on 01/17/17 20:22; Admin Dose 25 MG; Start 01/10/17 at 17:30 Multivitamins 30 ml 30 ml DAILY GTB Last administered on 01/23/17 09:34; Admin Dose 30 ML; Start 01/11/17 at 09:00 Sodium Chloride (NS) 1,000 ml @ 30 mls/hr Q24H IV Last administered on 13:58; Admin Dose 30 MLS/HR; Start 01/10/17 at 18:30 Acetaminophen (Tylenol Liquid) 650 mg Q6H PRN GTB FOR FEVER T>101 Last administered on 01/20/17 15:22; Admin Dose 650 MG; Start 01/10/17 at 18:30 Guaifenesin/ Codeine Phosphate (Robitussin Ac Liquid Cup) 5 ml Q4H PRN PO COUGH Last administered on 01/18/17 05:25; Admin Dose 5 ML; Start 01/17/17 at 12:00 Quetiapine Fumarate (Seroquel) 50 mg Q6 PO Last administered on 01/23/17 17:53 ; Admin Dose 50 MG; Start 01/18/17 at 00:00 Loperamide HCl (Imodium Cap) 2 mg Q6H PRN GTB DIARRHEA; Start 01/20/17 at 16:30 Nystatin (Nystatin Susp) 5 ml Q12 PO Last administered on 01/23/17 09:33; Admin Dose 5 ML; Start 01/22/17 at 21:00 Assessment/Plan Chief Complaint/Hosp Course Assessment/impression - recurrent fever on 01/19/2017 - sepsis vs. 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 coli - recurrent thrush - underlying pulmonary fibrosis - labial herpes, improving - IV caspofungin dc'd due to rash (01/19 - 01/20/2017) - VDRF s/p trach 10/09/2016 - s/p recurrent sepsis due to HCAP and UTI - h/o HCAP due to MDR acinetobacter and ESBL+E. Coli - dysphagia s/p PEG placement 10/09/2016 - erythroderma of unclear etiology in 11/2016, improved - h/o CARLOS - h/o recurrent UTI due to ESBL+E. Coli - h/o funguria - h/o bacteremia 10/28/2016 due to enterococcus faecium. Midline was dc'd - h/o bacteremia 12/21/2016 due to enterococcus faecalis - s/p severe sepsis due to UTI, prob aspiration after hematemesis and multiple intubation events, and HCAP - s/p acute UGIB of unclear etiology; s/p EGD 10/01/2016 showing no active bleeding site - HLD and fatty liver - h/o alcoholism - chronic diastolic HF - diverticulosis, seen on CT at [facility] - severe protein calorie malnutrition - h/o fall and trauma to R foot Recommendations: - check LFTs - end empiric meropenem (01/19/2017-) and neb tobramycin (01/17/2017-) after the last dose today and then monitor Pt off systemic antibiotics - re-start nystatin for thrush - continue pGT acyclovir for labial herpes infection (01/17/2017-), ordered for 7 days through 01/24/2017 - monitor rash - Care and management d/w patient's , nurse Vero and DR. Childers Problems: SIS BRAND Jan 23, 2017 20:22
[2017-01-24] VITALS (24 sets, daily range): BP systolic 116–133; BP diastolic 61–79; PULSE 72–95; RESP 15–35
[2017-01-24] MEDS: IPRATROPIUM (HFA) 12.9 GM INHALER INH SCH ×6 (01:29→20:08)
[2017-01-24] MEDS: ALBUTEROL 18 GM INHALER INH SCH ×6 (01:29→20:09)
[2017-01-24] MEDS: QUETIAPINE 25 MG TAB PO SCH ×3 (06:22→17:11)
[2017-01-24 07:33] LABS: BASOPHIL # 0.1 10^3/ul (0.0-0.1); BASOPHILS % 0.6 % (0.0-2.0); EOSINOPHILS # 0.4 10^3/ul (0.0-0.5); EOSINOPHILS % 3.5 % (0.0-7.0); HEMATOCRIT 31.8 % (42.0-52.0); HEMOGLOBIN 10.3 g/dl (14.0-18.0); LYMPHOCYTES # 1.5 10^3/ul (0.8-2.9); LYMPHOCYTES % 14.1 % (15.0-51.0); MEAN CORPUSCULAR HEMOGLOBIN 29.9 pg (29.0-33.0); MEAN CORPUSCULAR HGB CONC 32.4 g/dl (32.0-37.0); MEAN CORPUSCULAR VOLUME 92.2 fl (82.0-101.0); MEAN PLATELET VOLUME 10.2 fl (7.4-10.4); MONOCYTE # 0.5 10^3/ul (0.3-0.9); MONOCYTES % 5.1 % (0.0-11.0); PLATELET COUNT 328 10^3/UL (140-415); RED BLOOD COUNT 3.45 10^6/ul (4.70-6.10); WHITE BLOOD COUNT 10.5 10^3/ul (4.8-10.8)
[2017-01-24 08:02] LABS: CALCIUM 9.4 mg/dl (8.4-10.2); CREATININE 0.55 mg/dl (0.61-1.24); POTASSIUM 4.1 mmol/L (3.5-5.1)
[2017-01-24] MEDS: FOLIC ACID 1 MG TAB GTB SCH (09:23)
[2017-01-24] MEDS: METOPROLOL 50 MG TAB GTB SCH ×2 (09:24→20:55)
[2017-01-24] MEDS: MULTIVITAMINS 30 ML CUP GTB SCH (09:24)
[2017-01-24] MEDS: LANSOPRAZOLE 30 MG CAP GTB SCH (09:25)
[2017-01-24] MEDS: ACYCLOVIR 400 MG TAB GTB SCH ×3 (09:26→14:39)
[2017-01-24] MEDS: L ACIDOPHIL/B LACTIS/B LONGUM CAPSULE PEG SCH ×3 (09:26→20:55)
[2017-01-24] MEDS: NYSTATIN SUSP 5 ML CUP PO SCH ×2 (09:26→20:55)
[2017-01-24] MEDS: OXCARBAZEPINE 300 MG TAB GTB SCH ×2 (09:26→20:56)
[2017-01-24] MEDS: ASCORBIC ACID 500 MG TAB GTB SCH (09:26)
--- NOTE | 2017-01-24 10:27 | CONS ---
Date/Time of Note Date/Time of Note DATE: 01/24/17 TIME: 10:25 Assessment/Plan Assessment/Plan Additional Assessment/Plan Ventilator setting; AC of 20, tidal volume 500, PEEP of 5, 45% FiO2. Assessment and recommendations; 1. Patient admitted with bilateral pneumonia off antibiotics now. 2. Chronic respiratory failure due to end-stage pulmonary fibrosis, patient remains persistently hypoxemic on high FiO2. Continue current supportive care. Consider discharge. Consultation Date/Type/Reason Admit Date/Time Jan 09, 2017 at 18:37 Initial Consult Date 01/10/17 Type of Consultation: Pulmonary Referring Provider: MATTHEW CALDERON MD 24 HR Interval Summary Free Text/Dictation Patient condition remains stable. Remains awake alert. Has remained hemodynamically stable. Denies shortness of breath, abdominal pain,. General exam; elderly male, awake and alert. Currently in no distress. Exam/Review of Systems Vital Signs Vitals Vital Signs Date Time Temp Pulse Resp B/P Pulse Ox O2 Delivery O2 Flow Rate FiO2 01/24/17 09:10 96 32 97 45 01/24/17 08:03 99.0 120/61 01/22/17 12:42 Mechanical Ventilator Trach Collar Intake and Output 01/23/17 01/23/17 01/24/17 15:00 23:00 07:00 Intake Total 180 ml 930 ml 670 ml Output Total 800 ml 600 ml Balance 180 ml 130 ml 70 ml Exam HEENT exam; supple neck, no JVD. No lymphadenopathy. Midline trachea. No thyromegaly. Tracheostomy in place. Patient is edentulous. Chest exam; bilateral crackles. S1-S2 audible, no murmurs. Regular rhythm. Abdomen exam; soft, nontender. G-tube in place. Bowel sounds audible. No organomegaly. Extremity exam; no peripheral edema. MEDICAL SERVICE REPRESENTATIVE exam; no focal deficit. Results Result Diagram: 01/24/17 0625 01/24/17 0625 Results 24 hrs Laboratory Tests Test 01/24/17 06:25 White Blood Count 10.5 Red Blood Count 3.45 L Hemoglobin 10.3 L Hematocrit 31.8 L Mean Corpuscular Volume 92.2 Mean Corpuscular Hemoglobin 29.9 Mean Corpuscular Hemoglobin Concent 32.4 Red Cell Distribution Width 16.0 H Platelet Count 328 Mean Platelet Volume 10.2 Neutrophils % 76.0 Lymphocytes % 14.1 L Monocytes % 5.1 Eosinophils % 3.5 Basophils % 0.6 Nucleated Red Blood Cells % 0.0 Neutrophils # (Manual) 8.0 H Lymphocytes # 1.5 Monocytes # 0.5 Eosinophils # 0.4 Basophils # 0.1 Nucleated Red Blood Cells # 0.0 Sodium Level 137 Potassium Level 4.1 Chloride Level 92 L Carbon Dioxide Level 35 H Anion Gap 14 Blood Urea Nitrogen 17 Creatinine 0.55 L Glucose Level 97 Calcium Level 9.4 Medications Medications Current Medications Ondansetron HCl (Zofran Inj) 4 mg Q6H PRN IV NAUSEA AND/OR VOMITING; Start at 22:00 Acetaminophen (Tylenol Tab) 650 mg Q6H PRN PO PAIN LEVEL 1-3 OR FEVER Last administered on 01/10/17 15:46; Admin Dose 650 MG; Start 01/09/17 at 22:00 Morphine Sulfate (morphine) 2 mg Q4H PRN IV PAIN LEVEL 7-10 Last administered on 01/22/17 22:27; Admin Dose 2 MG; Start 01/09/17 at 22:00 Clonidine (Catapres) 0.1 mg Q6 GTB Last administered on 01/23/17 17:53; Admin Dose 0.1 MG; Start 01/10/17 at 18:00 Diphenhydramine HCl (Benadryl) 25 mg Q6H PRN GTB ITCHING Last administered on 14:47; Admin Dose 25 MG; Start 01/10/17 at 17:00 Folic Acid (Folic Acid) 1 mg DAILY GTB Last administered on 01/24/17 09:23; Admin Dose 1 MG; Start 01/11/17 at 09:00 Acetaminophen/ Hydrocodone Bitart ([place] (5/325)) 1 tab Q4H PRN GTB PAIN LEVEL 4-10/10 Last administered on 01/17/17 18:49; Admin Dose 1 TAB; Start 01/10/17 at 17:00 Lactobacillus Acidophilus (Florajen3 Capsule) 3 each TID PEG Last administered on 01/24/17 09:26; Admin Dose 3 EACH; Start 01/10/17 at 21:00 Lansoprazole (Prevacid) 30 mg DAILY GTB Last administered on 01/24/17 09:25; Admin Dose 30 MG; Start 01/11/17 at 09:00 Metoprolol Tartrate (Lopressor) 50 mg BID GTB Last administered on 01/24/17 09 :24; Admin Dose 50 MG; Start 01/10/17 at 21:00 Oxcarbazepine (Trileptal) 300 mg BID GTB Last administered on 01/24/17 09:26; Admin Dose 300 MG; Start 01/10/17 at 21:00 Metoprolol Tartrate (Lopressor) 5 mg Q4 PRN IV NOTE; Start 01/10/17 at 17:00 Ascorbic Acid (Vitamin C) 500 mg DAILY GTB Last administered on 01/24/17 09:26 ; Admin Dose 500 MG; Start 01/11/17 at 09:00 Diphenhydramine HCl (Benadryl) 25 mg Q6H PRN IV Agitation Last administered on 01/17/17 20:22; Admin Dose 25 MG; Start 01/10/17 at 17:30 Multivitamins 30 ml 30 ml DAILY GTB Last administered on 01/24/17 09:24; Admin Dose 30 ML; Start 01/11/17 at 09:00 Sodium Chloride (NS) 1,000 ml @ 30 mls/hr Q24H IV Last administered on 13:58; Admin Dose 30 MLS/HR; Start 01/10/17 at 18:30 Acetaminophen (Tylenol Liquid) 650 mg Q6H PRN GTB FOR FEVER T>101 Last administered on 01/20/17 15:22; Admin Dose 650 MG; Start 01/10/17 at 18:30 Guaifenesin/ Codeine Phosphate (Robitussin Ac Liquid Cup) 5 ml Q4H PRN PO COUGH Last administered on 01/18/17 05:25; Admin Dose 5 ML; Start 01/17/17 at 12:00 Quetiapine Fumarate (Seroquel) 50 mg Q6 PO Last administered on 01/24/17 06:22 ; Admin Dose 50 MG; Start 01/18/17 at 00:00 Loperamide HCl (Imodium Cap) 2 mg Q6H PRN GTB DIARRHEA; Start 01/20/17 at 16:30 Nystatin (Nystatin Susp) 5 ml Q12 PO Last administered on 8/31/17at 09:26; Admin Dose 5 ML; Start 01/22/17 at 21:00 JOSE L BLAKE Jan 24, 2017 10:27
[2017-01-24] MEDS: ACETAMINOPHEN 650MG/20.3ML CUP GTB PRN (11:56)
[2017-01-24] MEDS: SOD CHLORIDE 0.9% 1,000 ML IV SCH (12:19)
--- NOTE | 2017-01-24 15:52 | PN ---
Date/Time of Note Date/Time of Note DATE: 01/24/17 TIME: 15:51 Assessment/Plan VTE Prophylaxis VTE Prophylaxis Intervention: other Lines/Catheters IV Catheter Type (from [facility]): Peripheral IV Urinary Cath still in place: Yes Reason Cath still needed: urinary retention Assessment/Plan Assessment/Plan - Possible recurrent sepsis. S/pt treatment with antibiotics. Dr. Laguerre is following infection disease consultation. - Pulmonary fibrosis. - Ventilatory dependent respiratory failure with tracheostomy. Dr. Souza is following in pulmonology consultation. - Chronic diastolic congestive heart failure. - Dysphagia with PEG. - Fatty liver. - Anemia, stool for OB is negative, continue to monitor H&H. Further recommendations based on clinical course. Plan of care discussed with Dr. Austin Problems: Exam/Review of Systems Vital Signs Vitals Vital Signs Date Time Temp Pulse Resp B/P Pulse Ox O2 Delivery O2 Flow Rate FiO2 01/24/17 15:10 79 30 97 45 01/24/17 11:45 100.0 116/61 01/22/17 12:42 Mechanical Ventilator Trach Collar Intake and Output 01/23/17 01/23/17 01/24/17 15:00 23:00 07:00 Intake Total 180 ml 930 ml 670 ml Output Total 800 ml 600 ml Balance 180 ml 130 ml 70 ml Exam afebrile, alert, awake, follows simple commands.afebrile, dw staff- no new issues reported. Constitutional: alert, well developed Respiratory: diminished breath sounds Cardiovascular: nl pulses, regular rate and rhythm Gastrointestinal: non-tender, soft Musculoskeletal: nl extremities to inspection Extremities: normal pulses Neurological: other Results Result Diagram: 01/24/17 0625 01/24/17 0625 Results 24 hrs Laboratory Tests Test 01/24/17 06:25 White Blood Count 10.5 Red Blood Count 3.45 L Hemoglobin 10.3 L Hematocrit 31.8 L Mean Corpuscular Volume 92.2 Mean Corpuscular Hemoglobin 29.9 Mean Corpuscular Hemoglobin Concent 32.4 Red Cell Distribution Width 16.0 H Platelet Count 328 Mean Platelet Volume 10.2 Neutrophils % 76.0 Lymphocytes % 14.1 L Monocytes % 5.1 Eosinophils % 3.5 Basophils % 0.6 Nucleated Red Blood Cells % 0.0 Neutrophils # (Manual) 8.0 H Lymphocytes # 1.5 Monocytes # 0.5 Eosinophils # 0.4 Basophils # 0.1 Nucleated Red Blood Cells # 0.0 Sodium Level 137 Potassium Level 4.1 Chloride Level 92 L Carbon Dioxide Level 35 H Anion Gap 14 Blood Urea Nitrogen 17 Creatinine 0.55 L Glucose Level 97 Calcium Level 9.4 Medications Medications Current Medications Ondansetron HCl (Zofran Inj) 4 mg Q6H PRN IV NAUSEA AND/OR VOMITING; Start at 22:00 Acetaminophen (Tylenol Tab) 650 mg Q6H PRN PO PAIN LEVEL 1-3 OR FEVER Last administered on 01/10/17 15:46; Admin Dose 650 MG; Start 01/09/17 at 22:00 Morphine Sulfate (morphine) 2 mg Q4H PRN IV PAIN LEVEL 7-10 Last administered on 01/22/17 22:27; Admin Dose 2 MG; Start 01/09/17 at 22:00 Clonidine (Catapres) 0.1 mg Q6 GTB Last administered on 01/24/17 11:55; Admin Dose 0.1 MG; Start 01/10/17 at 18:00 Diphenhydramine HCl (Benadryl) 25 mg Q6H PRN GTB ITCHING Last administered on 14:47; Admin Dose 25 MG; Start 01/10/17 at 17:00 Folic Acid (Folic Acid) 1 mg DAILY GTB Last administered on 01/24/17 09:23; Admin Dose 1 MG; Start 01/11/17 at 09:00 Acetaminophen/ Hydrocodone Bitart ([place] (5/325)) 1 tab Q4H PRN GTB PAIN LEVEL 4-10/10 Last administered on 01/17/17 18:49; Admin Dose 1 TAB; Start 01/10/17 at 17:00 Lactobacillus Acidophilus (Florajen3 Capsule) 3 each TID PEG Last administered on 01/24/17 12:19; Admin Dose 3 EACH; Start 01/10/17 at 21:00 Lansoprazole (Prevacid) 30 mg DAILY GTB Last administered on 01/24/17 09:25; Admin Dose 30 MG; Start 01/11/17 at 09:00 Metoprolol Tartrate (Lopressor) 50 mg BID GTB Last administered on 01/24/17 09 :24; Admin Dose 50 MG; Start 01/10/17 at 21:00 Oxcarbazepine (Trileptal) 300 mg BID GTB Last administered on 01/24/17 09:26; Admin Dose 300 MG; Start 01/10/17 at 21:00 Metoprolol Tartrate (Lopressor) 5 mg Q4 PRN IV NOTE; Start 01/10/17 at 17:00 Ascorbic Acid (Vitamin C) 500 mg DAILY GTB Last administered on 01/24/17 09:26 ; Admin Dose 500 MG; Start 01/11/17 at 09:00 Diphenhydramine HCl (Benadryl) 25 mg Q6H PRN IV Agitation Last administered on 01/17/17 20:22; Admin Dose 25 MG; Start 01/10/17 at 17:30 Multivitamins 30 ml 30 ml DAILY GTB Last administered on 01/24/17 09:24; Admin Dose 30 ML; Start 01/11/17 at 09:00 Sodium Chloride (NS) 1,000 ml @ 30 mls/hr Q24H IV Last administered on 12:19; Admin Dose 30 MLS/HR; Start 01/10/17 at 18:30 Acetaminophen (Tylenol Liquid) 650 mg Q6H PRN GTB FOR FEVER T>101 Last administered on 01/24/17 11:56; Admin Dose 650 MG; Start 01/10/17 at 18:30 Guaifenesin/ Codeine Phosphate (Robitussin Ac Liquid Cup) 5 ml Q4H PRN PO COUGH Last administered on 01/18/17 05:25; Admin Dose 5 ML; Start 01/17/17 at 12:00 Quetiapine Fumarate (Seroquel) 50 mg Q6 PO Last administered on 01/24/17 11:56 ; Admin Dose 50 MG; Start 01/18/17 at 00:00 Loperamide HCl (Imodium Cap) 2 mg Q6H PRN GTB DIARRHEA; Start 01/20/17 at 16:30 Nystatin (Nystatin Susp) 5 ml Q12 PO Last administered on 01/24/17 09:26; Admin Dose 5 ML; Start 01/22/17 at 21:00 CHARITY DUKE Jan 24, 2017 15:52
[2017-01-24] MEDS: LOPERAMIDE 2 MG CAP GTB PRN (17:22)
--- NOTE | 2017-01-24 17:23 | CONS ---
RODRIGUEZ GLOVER BIOMEDICAL EQUIPMENT SPECIALIST 01/24/17 1722: Date/Time of Note Date/Time of Note DATE: 01/24/17 TIME: 17:12 Assessment/Plan Assessment/Plan Chief Complaint/Hosp Course assessment/impression - recurrent fever on 01/19/2017 - sepsis vs. 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 coli - recurrent thrush - underlying pulmonary fibrosis - labial herpes, improving - rash/erythroderma due to caspofungin according to Pt's RN on 01/20/2017 - VDRF s/p trach 10/09/2016 - s/p recurrent sepsis due to HCAP and UTI - h/o HCAP due to MDR acinetobacter and ESBL+E. Coli - dysphagia s/p PEG placement 10/09/2016 - erythroderma of unclear etiology in 11/2016, improved - h/o CARLOS - h/o recurrent UTI due to ESBL+E. Coli - funguria- replaced Robin 01/21/2017 - h/o bacteremia 10/28/2016 due to enterococcus faecium. Midline was dc'd - h/o bacteremia 12/21/2016 due to enterococcus faecalis - s/p severe sepsis due to UTI, prob aspiration after hematemesis and multiple intubation events, and HCAP - s/p acute UGIB of unclear etiology; s/p EGD 10/01/2016 showing no active bleeding site - HLD and fatty liver - h/o alcoholism - chronic diastolic HF - diverticulosis, seen on CT at [facility] - severe protein calorie malnutrition - h/o fall and trauma to R foot - hypernatremia recommendations: - monitor Pt off systemic antibiotics; s/p empiric meropenem (01/19/2017-2016) and neb tobramycin (01/17/2017-01/22/2017) - continue nystatin for thrush - complete 7 day course of pGT acyclovir for labial herpes infection today (01/17-01/24/2017) Management d/w KOFI Joseph and Dr. Childers Problems: Consultation Date/Type/Reason Admit Date/Time Jan 09, 2017 at 18:37 Initial Consult Date 01/10/17 Type of Consultation: Infectious Disease Referring Provider: MATTHEW CALDERON MD 24 HR Interval Summary Free Text/Dictation No acute issues; Awaiting subacute placement per d/w nursing staff. Nods yes to mild abdominal pain and nods no to n/v or SOB. Exam/Review of Systems Vital Signs Vitals Vital Signs Date Time Temp Pulse Resp B/P Pulse Ox O2 Delivery O2 Flow Rate FiO2 01/24/17 16:07 99.0 78 25 120/79 99 01/24/17 15:10 45 01/22/17 12:42 Mechanical Ventilator Trach Collar Intake and Output 01/23/17 01/23/17 01/24/17 15:00 23:00 07:00 Intake Total 180 ml 930 ml 670 ml Output Total 800 ml 600 ml Balance 180 ml 130 ml 70 ml Exam Constitutional: alert, frail, non-verbal, well developed Head: atraumatic, normocephalic, other (temporal wasting) Eyes: nl conjunctiva, nl lids, nl sclera ENMT: nl external ears & nose, other (oral thrush noted) Neck: other (trach) Respiratory: diminished breath sounds, crackles/rales (few) Cardiovascular: nl pulses, regular rate and rhythm Gastrointestinal: non-tender, other (G-tube present; pt starting to have loose stool), soft Genitourinary - Male: other (Robin catheter present) Musculoskeletal: nl extremities to inspection Extremities: No edema Neurological: other (Nods to simple questions when spoken to in [place]) Skin: nl turgor, Other (rash has resolved) Results Result Diagram: 01/24/17 0625 01/24/17 0625 Results 24 hrs Laboratory Tests Test 01/24/17 06:25 White Blood Count 10.5 Red Blood Count 3.45 L Hemoglobin 10.3 L Hematocrit 31.8 L Mean Corpuscular Volume 92.2 Mean Corpuscular Hemoglobin 29.9 Mean Corpuscular Hemoglobin Concent 32.4 Red Cell Distribution Width 16.0 H Platelet Count 328 Mean Platelet Volume 10.2 Neutrophils % 76.0 Lymphocytes % 14.1 L Monocytes % 5.1 Eosinophils % 3.5 Basophils % 0.6 Nucleated Red Blood Cells % 0.0 Neutrophils # (Manual) 8.0 H Lymphocytes # 1.5 Monocytes # 0.5 Eosinophils # 0.4 Basophils # 0.1 Nucleated Red Blood Cells # 0.0 Sodium Level 137 Potassium Level 4.1 Chloride Level 92 L Carbon Dioxide Level 35 H Anion Gap 14 Blood Urea Nitrogen 17 Creatinine 0.55 L Glucose Level 97 Calcium Level 9.4 Medications Medications Current Medications Ondansetron HCl (Zofran Inj) 4 mg Q6H PRN IV NAUSEA AND/OR VOMITING; Start at 22:00 Acetaminophen (Tylenol Tab) 650 mg Q6H PRN PO PAIN LEVEL 1-3 OR FEVER Last administered on 01/10/17 15:46; Admin Dose 650 MG; Start 01/09/17 at 22:00 Morphine Sulfate (morphine) 2 mg Q4H PRN IV PAIN LEVEL 7-10 Last administered on 01/22/17 22:27; Admin Dose 2 MG; Start 01/09/17 at 22:00 Clonidine (Catapres) 0.1 mg Q6 GTB Last administered on 01/24/17 11:55; Admin Dose 0.1 MG; Start 01/10/17 at 18:00 Diphenhydramine HCl (Benadryl) 25 mg Q6H PRN GTB ITCHING Last administered on 14:47; Admin Dose 25 MG; Start 01/10/17 at 17:00 Folic Acid (Folic Acid) 1 mg DAILY GTB Last administered on 01/24/17 09:23; Admin Dose 1 MG; Start 01/11/17 at 09:00 Acetaminophen/ Hydrocodone Bitart ([place] (5/325)) 1 tab Q4H PRN GTB PAIN LEVEL 4-10/10 Last administered on 01/17/17 18:49; Admin Dose 1 TAB; Start 01/10/17 at 17:00 Lactobacillus Acidophilus (Florajen3 Capsule) 3 each TID PEG Last administered on 01/24/17 12:19; Admin Dose 3 EACH; Start 01/10/17 at 21:00 Lansoprazole (Prevacid) 30 mg DAILY GTB Last administered on 01/24/17 09:25; Admin Dose 30 MG; Start 01/11/17 at 09:00 Metoprolol Tartrate (Lopressor) 50 mg BID GTB Last administered on 01/24/17 09 :24; Admin Dose 50 MG; Start 01/10/17 at 21:00 Oxcarbazepine (Trileptal) 300 mg BID GTB Last administered on 01/24/17 09:26; Admin Dose 300 MG; Start 01/10/17 at 21:00 Metoprolol Tartrate (Lopressor) 5 mg Q4 PRN IV NOTE; Start 01/10/17 at 17:00 Ascorbic Acid (Vitamin C) 500 mg DAILY GTB Last administered on 01/24/17 09:26 ; Admin Dose 500 MG; Start 01/11/17 at 09:00 Diphenhydramine HCl (Benadryl) 25 mg Q6H PRN IV Agitation Last administered on 01/17/17 20:22; Admin Dose 25 MG; Start 01/10/17 at 17:30 Multivitamins 30 ml 30 ml DAILY GTB Last administered on 01/24/17 09:24; Admin Dose 30 ML; Start 01/11/17 at 09:00 Sodium Chloride (NS) 1,000 ml @ 30 mls/hr Q24H IV Last administered on 12:19; Admin Dose 30 MLS/HR; Start 01/10/17 at 18:30 Acetaminophen (Tylenol Liquid) 650 mg Q6H PRN GTB FOR FEVER T>101 Last administered on 01/24/17 11:56; Admin Dose 650 MG; Start 01/10/17 at 18:30 Guaifenesin/ Codeine Phosphate (Robitussin Ac Liquid Cup) 5 ml Q4H PRN PO COUGH Last administered on 01/18/17 05:25; Admin Dose 5 ML; Start 01/17/17 at 12:00 Quetiapine Fumarate (Seroquel) 50 mg Q6 PO Last administered on 01/24/17 11:56 ; Admin Dose 50 MG; Start 01/18/17 at 00:00 Loperamide HCl (Imodium Cap) 2 mg Q6H PRN GTB DIARRHEA; Start 01/20/17 at 16:30 Nystatin (Nystatin Susp) 5 ml Q12 PO Last administered on 01/24/17 09:26; Admin Dose 5 ML; Start 01/22/17 at 21:00 MADISON CHILDERS M.D. 01/25/17 1120: Assessment/Plan Assessment/Plan Additional Assessment/Plan I discussed the management with CARSON Glover and agree with her note Exam/Review of Systems Results Result Diagram: 01/24/17 0625 01/24/17 0625 RODRIGUEZ GLOVER NP Jan 24, 2017 17:22 MADISON CHILDERS M.D. Jan 25, 2017 11:20
--- NOTE | 2017-01-24 17:56 | CONS ---
Date/Time of Note Date/Time of Note DATE: 01/24/17 TIME: 17:55 Assessment/Plan Assessment/Plan Chief Complaint/Hosp Course IMP: 1.Diastolic CHF 2.HTN 3.Resp failure-chronic s/p trach 4.Pulmonary fibrosis 5. PNA 6.UTI 7. Labial herpes Recc: -Tele -Continue BB as tolerated -Continue abx's and bronchodilators -Continue acyclovir -Follow volume status closely Problems: Consultation Date/Type/Reason Admit Date/Time Jan 09, 2017 at 18:37 Initial Consult Date 01/10/17 Type of Consultation: caqrdiology Reason for Consultation tachycardia Referring Provider: MATTHEW CALDERON MD Exam/Review of Systems Vital Signs Vitals Vital Signs Date Time Temp Pulse Resp B/P Pulse Ox O2 Delivery O2 Flow Rate FiO2 01/24/17 17:10 78 34 98 45 01/24/17 16:07 99.0 120/79 01/22/17 12:42 Mechanical Ventilator Trach Collar Intake and Output 01/23/17 01/23/17 01/24/17 15:00 23:00 07:00 Intake Total 180 ml 930 ml 670 ml Output Total 800 ml 600 ml Balance 180 ml 130 ml 70 ml Exam Review of Systems: CONSTITUTIONAL: No fevers, chills. PULMONARY: No sob CARDIOVASCULAR: No chest pain/palpitations GASTROINTESTINAL: No nausea/vomiting. GENITOURINARY: No hematuria/dysuria. MUSCULOSKELETAL: No myagias/arthalgias. PSYCHIATRIC: The patient denies depression. NEUROLOGIC: No weakness Constitutional: alert Psych: no complaints Head: normocephalic ENMT: mucosa pink and moist Neck: jvd (8cm water), other (trached), supple Respiratory: diminished breath sounds Cardiovascular: regular rate and rhythm Gastrointestinal: non-tender, soft Musculoskeletal: muscle tone (normal) Extremities: edema (none) Neurological: other (No focal deficits) Results Result Diagram: 01/24/17 0625 01/24/17 0625 Results 24 hrs Laboratory Tests Test 01/24/17 06:25 White Blood Count 10.5 Red Blood Count 3.45 L Hemoglobin 10.3 L Hematocrit 31.8 L Mean Corpuscular Volume 92.2 Mean Corpuscular Hemoglobin 29.9 Mean Corpuscular Hemoglobin Concent 32.4 Red Cell Distribution Width 16.0 H Platelet Count 328 Mean Platelet Volume 10.2 Neutrophils % 76.0 Lymphocytes % 14.1 L Monocytes % 5.1 Eosinophils % 3.5 Basophils % 0.6 Nucleated Red Blood Cells % 0.0 Neutrophils # (Manual) 8.0 H Lymphocytes # 1.5 Monocytes # 0.5 Eosinophils # 0.4 Basophils # 0.1 Nucleated Red Blood Cells # 0.0 Sodium Level 137 Potassium Level 4.1 Chloride Level 92 L Carbon Dioxide Level 35 H Anion Gap 14 Blood Urea Nitrogen 17 Creatinine 0.55 L Glucose Level 97 Calcium Level 9.4 Medications Medications Current Medications Ondansetron HCl (Zofran Inj) 4 mg Q6H PRN IV NAUSEA AND/OR VOMITING; Start at 22:00 Acetaminophen (Tylenol Tab) 650 mg Q6H PRN PO PAIN LEVEL 1-3 OR FEVER Last administered on 01/10/17 15:46; Admin Dose 650 MG; Start 01/09/17 at 22:00 Morphine Sulfate (morphine) 2 mg Q4H PRN IV PAIN LEVEL 7-10 Last administered on 01/22/17 22:27; Admin Dose 2 MG; Start 01/09/17 at 22:00 Clonidine (Catapres) 0.1 mg Q6 GTB Last administered on 01/24/17 11:55; Admin Dose 0.1 MG; Start 01/10/17 at 18:00 Diphenhydramine HCl (Benadryl) 25 mg Q6H PRN GTB ITCHING Last administered on 14:47; Admin Dose 25 MG; Start 01/10/17 at 17:00 Folic Acid (Folic Acid) 1 mg DAILY GTB Last administered on 01/24/17 09:23; Admin Dose 1 MG; Start 01/11/17 at 09:00 Acetaminophen/ Hydrocodone Bitart ([place] (5/325)) 1 tab Q4H PRN GTB PAIN LEVEL 4-10/10 Last administered on 01/17/17 18:49; Admin Dose 1 TAB; Start 01/10/17 at 17:00 Lactobacillus Acidophilus (Florajen3 Capsule) 3 each TID PEG Last administered on 01/24/17 12:19; Admin Dose 3 EACH; Start 01/10/17 at 21:00 Lansoprazole (Prevacid) 30 mg DAILY GTB Last administered on 01/24/17 09:25; Admin Dose 30 MG; Start 01/11/17 at 09:00 Metoprolol Tartrate (Lopressor) 50 mg BID GTB Last administered on 01/24/17 09 :24; Admin Dose 50 MG; Start 01/10/17 at 21:00 Oxcarbazepine (Trileptal) 300 mg BID GTB Last administered on 01/24/17 09:26; Admin Dose 300 MG; Start 01/10/17 at 21:00 Metoprolol Tartrate (Lopressor) 5 mg Q4 PRN IV NOTE; Start 01/10/17 at 17:00 Ascorbic Acid (Vitamin C) 500 mg DAILY GTB Last administered on 01/24/17 09:26 ; Admin Dose 500 MG; Start 01/11/17 at 09:00 Diphenhydramine HCl (Benadryl) 25 mg Q6H PRN IV Agitation Last administered on 01/17/17 20:22; Admin Dose 25 MG; Start 01/10/17 at 17:30 Multivitamins 30 ml 30 ml DAILY GTB Last administered on 01/24/17 09:24; Admin Dose 30 ML; Start 01/11/17 at 09:00 Sodium Chloride (NS) 1,000 ml @ 30 mls/hr Q24H IV Last administered on 12:19; Admin Dose 30 MLS/HR; Start 01/10/17 at 18:30 Acetaminophen (Tylenol Liquid) 650 mg Q6H PRN GTB FOR FEVER T>101 Last administered on 01/24/17 11:56; Admin Dose 650 MG; Start 01/10/17 at 18:30 Guaifenesin/ Codeine Phosphate (Robitussin Ac Liquid Cup) 5 ml Q4H PRN PO COUGH Last administered on 01/18/17 05:25; Admin Dose 5 ML; Start 01/17/17 at 12:00 Quetiapine Fumarate (Seroquel) 50 mg Q6 PO Last administered on 01/24/17 17:11 ; Admin Dose 50 MG; Start 01/18/17 at 00:00 Loperamide HCl (Imodium Cap) 2 mg Q6H PRN GTB DIARRHEA Last administered on 17:22; Admin Dose 2 MG; Start 01/20/17 at 16:30 Nystatin (Nystatin Susp) 5 ml Q12 PO Last administered on 01/24/17t 09:26; Admin Dose 5 ML; Start 01/22/17 at 21:00 CLOVIS LEON Jan 24, 2017 17:56
[2017-01-25] VITALS (24 sets, daily range): BP systolic 104–123; BP diastolic 59–70; PULSE 81–118; RESP 15–34
[2017-01-25] MEDS: QUETIAPINE 25 MG TAB PO SCH ×5 (00:48→23:47)
[2017-01-25] MEDS: ALBUTEROL 18 GM INHALER INH SCH ×6 (01:30→21:09)
[2017-01-25] MEDS: IPRATROPIUM (HFA) 12.9 GM INHALER INH SCH ×6 (01:30→21:09)
[2017-01-25 07:04] LABS: BASOPHIL # 0.1 10^3/ul (0.0-0.1); BASOPHILS % 0.6 % (0.0-2.0); EOSINOPHILS # 0.3 10^3/ul (0.0-0.5); EOSINOPHILS % 2.9 % (0.0-7.0); HEMATOCRIT 32.2 % (42.0-52.0); HEMOGLOBIN 10.4 g/dl (14.0-18.0); LYMPHOCYTES # 1.2 10^3/ul (0.8-2.9); MEAN CORPUSCULAR HEMOGLOBIN 30.2 pg (29.0-33.0); MEAN CORPUSCULAR HGB CONC 32.3 g/dl (32.0-37.0); MEAN CORPUSCULAR VOLUME 93.6 fl (82.0-101.0); MEAN PLATELET VOLUME 10.2 fl (7.4-10.4); MONOCYTE # 0.7 10^3/ul (0.3-0.9); MONOCYTES % 6.2 % (0.0-11.0); NEUTROPHILS % 78.7 % (39.0-77.0); PLATELET COUNT 320 10^3/UL (140-415); RED BLOOD COUNT 3.44 10^6/ul (4.70-6.10); WHITE BLOOD COUNT 10.8 10^3/ul (4.8-10.8)
[2017-01-25 07:43] LABS: CALCIUM 9.2 mg/dl (8.4-10.2); CREATININE 0.52 mg/dl (0.61-1.24); POTASSIUM 3.9 mmol/L (3.5-5.1)
[2017-01-25] MEDS: NYSTATIN SUSP 5 ML CUP PO SCH ×2 (10:17→20:25)
[2017-01-25] MEDS: MULTIVITAMINS 30 ML CUP GTB SCH (10:18)
[2017-01-25] MEDS: L ACIDOPHIL/B LACTIS/B LONGUM CAPSULE PEG SCH ×3 (10:18→20:26)
[2017-01-25] MEDS: OXCARBAZEPINE 300 MG TAB GTB SCH ×2 (10:19→20:26)
[2017-01-25] MEDS: METOPROLOL 50 MG TAB GTB SCH ×2 (10:19→20:27)
[2017-01-25] MEDS: LANSOPRAZOLE 30 MG CAP GTB SCH (10:19)
[2017-01-25] MEDS: ASCORBIC ACID 500 MG TAB GTB SCH (10:19)
[2017-01-25] MEDS: HYDROCODONE/APAP (5/325) TAB GTB PRN (10:25)
[2017-01-25] MEDS: FOLIC ACID 1 MG TAB GTB SCH (10:28)
--- NOTE | 2017-01-25 11:52 | CONS ---
Date/Time of Note Date/Time of Note DATE: 01/25/17 TIME: 11:49 Assessment/Plan Assessment/Plan Chief Complaint/Hosp Course assessment/impression - recurrent fever on 01/19/2017, resolving - sepsis vs. 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 coli - recurrent thrush - underlying pulmonary fibrosis - labial herpes, s/p acyclovir - rash/erythroderma to caspofungin according to Pt's RN on 01/20/2017 - VDRF s/p trach 10/09/2016 - s/p recurrent sepsis due to HCAP and UTI - h/o HCAP due to MDR acinetobacter and ESBL+E. Coli - dysphagia s/p PEG placement 10/09/2016 - erythroderma of unclear etiology in 11/2016, improved - h/o CARLOS - h/o recurrent UTI due to ESBL+E. Coli - h/o funguria - h/o bacteremia 10/28/2016 due to enterococcus faecium. Midline was dc'd - h/o bacteremia 12/21/2016 due to enterococcus faecalis - s/p severe sepsis due to UTI, prob aspiration after hematemesis and multiple intubation events, and HCAP - s/p acute UGIB of unclear etiology; s/p EGD 10/01/2016 showing no active bleeding site - HLD and fatty liver - h/o alcoholism - chronic diastolic HF - diverticulosis, seen on CT at [facility] - severe protein calorie malnutrition - h/o fall and trauma to R foot recommendations: - repeat xiao-cultures if temp >100.4F - continue nystatin for thrush - monitor Pt off systemic antibiotics management d/w Pt Problems: Consultation Date/Type/Reason Admit Date/Time Jan 09, 2017 at 18:37 Initial Consult Date 01/10/17 Type of Consultation: ID Referring Provider: MATTHEW CALDERON MD 24 HR Interval Summary Subjective hx not possible: pt non-verbal (nearly non-verbal) Constitutional: no complaints Detailed Summary ENT: other (lip pain has resolved) Respiratory: No shortness of breath Gastrointestinal: No diarrhea, No nausea, No pain, No vomiting Skin: No rash Exam/Review of Systems Vital Signs Vitals Vital Signs Date Time Temp Pulse Resp B/P Pulse Ox O2 Delivery O2 Flow Rate FiO2 01/25/17 11:05 109 29 96 45 01/25/17 11:02 98.4 120/70 01/22/17 12:42 Mechanical Ventilator Trach Collar Intake and Output 01/24/17 01/24/17 01/25/17 15:00 23:00 07:00 Intake Total 1110 ml 750 ml Output Total 800 ml 1700 ml Balance 310 ml -950 ml Exam Constitutional: frail Psych: no complaints Head: atraumatic, normocephalic Eyes: nl conjunctiva, nl lids ENMT: nl external ears & nose, nl nasal mucosa & septum, other (no ulcers/ vesicles/crusts on lips) Respiratory: crackles/rales, diminished breath sounds Cardiovascular: nl pulses, regular rate and rhythm Gastrointestinal: non-tender, other (GT), soft Musculoskeletal: other (atrophy of b/l LEs) Extremities: No edema Neurological: lethargic Skin: nl turgor Results Result Diagram: 01/25/17 0621 01/25/17 0621 Results 24 hrs Laboratory Tests Test 01/25/17 06:21 01/25/17 08:01 White Blood Count 10.8 Red Blood Count 3.44 L Hemoglobin 10.4 L Hematocrit 32.2 L Mean Corpuscular Volume 93.6 Mean Corpuscular Hemoglobin 30.2 Mean Corpuscular Hemoglobin Concent 32.3 Red Cell Distribution Width 16.0 H Platelet Count 320 Mean Platelet Volume 10.2 Neutrophils % 78.7 H Lymphocytes % 11.0 L Monocytes % 6.2 Eosinophils % 2.9 Basophils % 0.6 Nucleated Red Blood Cells % 0.0 Neutrophils # (Manual) 8.5 H Lymphocytes # 1.2 Monocytes # 0.7 Eosinophils # 0.3 Basophils # 0.1 Nucleated Red Blood Cells # 0.0 Sodium Level 136 Potassium Level 3.9 Chloride Level 95 L Carbon Dioxide Level 36 H Anion Gap 9 # Blood Urea Nitrogen 17 Creatinine 0.52 L Glucose Level 116 Calcium Level 9.2 Lab Scanned Report BLOOD TRANSFUSION Medications Medications Current Medications Ondansetron HCl (Zofran Inj) 4 mg Q6H PRN IV NAUSEA AND/OR VOMITING; Start at 22:00 Acetaminophen (Tylenol Tab) 650 mg Q6H PRN PO PAIN LEVEL 1-3 OR FEVER Last administered on 01/10/17t 15:46; Admin Dose 650 MG; Start 01/09/17 at 22:00 Morphine Sulfate (morphine) 2 mg Q4H PRN IV PAIN LEVEL 7-10 Last administered on 01/22/17 22:27; Admin Dose 2 MG; Start 01/09/17 at 22:00 Clonidine (Catapres) 0.1 mg Q6 GTB Last administered on 01/25/17 00:48; Admin Dose 0.1 MG; Start 01/10/17 at 18:00 Diphenhydramine HCl (Benadryl) 25 mg Q6H PRN GTB ITCHING Last administered on 14:47; Admin Dose 25 MG; Start 01/10/17 at 17:00 Folic Acid (Folic Acid) 1 mg DAILY GTB Last administered on 01/25/17 10:28; Admin Dose 1 MG; Start 01/11/17 at 09:00 Acetaminophen/ Hydrocodone Bitart ([place] (5/325)) 1 tab Q4H PRN GTB PAIN LEVEL 4-10/10 Last administered on 01/25/17 10:25; Admin Dose 1 TAB; Start 01/10/17 at 17:00 Lactobacillus Acidophilus (Florajen3 Capsule) 3 each TID PEG Last administered on 01/25/17 10:18; Admin Dose 3 EACH; Start 01/10/17 at 21:00 Lansoprazole (Prevacid) 30 mg DAILY GTB Last administered on 01/25/17 10:19; Admin Dose 30 MG; Start 01/11/17 at 09:00 Metoprolol Tartrate (Lopressor) 50 mg BID GTB Last administered on 01/25/17 10: 19; Admin Dose 50 MG; Start 01/10/17 at 21:00 Oxcarbazepine (Trileptal) 300 mg BID GTB Last administered on 01/25/17 10:19; Admin Dose 300 MG; Start 01/10/17 at 21:00 Metoprolol Tartrate (Lopressor) 5 mg Q4 PRN IV NOTE; Start 01/10/17 at 17:00 Ascorbic Acid (Vitamin C) 500 mg DAILY GTB Last administered on 01/25/17 10:19 ; Admin Dose 500 MG; Start 01/11/17 at 09:00 Diphenhydramine HCl (Benadryl) 25 mg Q6H PRN IV Agitation Last administered on 01/17/17 20:22; Admin Dose 25 MG; Start 01/10/17 at 17:30 Multivitamins 30 ml 30 ml DAILY GTB Last administered on 01/25/17 10:18; Admin Dose 30 ML; Start 01/11/17 at 09:00 Sodium Chloride (NS) 1,000 ml @ 30 mls/hr Q24H IV Last administered on 12:19; Admin Dose 30 MLS/HR; Start 01/10/17 at 18:30 Acetaminophen (Tylenol Liquid) 650 mg Q6H PRN GTB FOR FEVER T>101 Last administered on 01/24/17 11:56; Admin Dose 650 MG; Start 01/10/17 at 18:30 Guaifenesin/ Codeine Phosphate (Robitussin Ac Liquid Cup) 5 ml Q4H PRN PO COUGH Last administered on 01/18/17 05:25; Admin Dose 5 ML; Start 01/17/17 at 12:00 Quetiapine Fumarate (Seroquel) 50 mg Q6 PO Last administered on 01/25/17 06:02 ; Admin Dose 50 MG; Start 01/18/17 at 00:00 Loperamide HCl (Imodium Cap) 2 mg Q6H PRN GTB DIARRHEA Last administered on 17:22; Admin Dose 2 MG; Start 01/20/17 at 16:30 Nystatin (Nystatin Susp) 5 ml Q12 PO Last administered on 01/25/17 10:17; Admin Dose 5 ML; Start 01/22/17 at 21:00 MADISON PIERRE M.D. Jan 25, 2017 11:52
--- NOTE | 2017-01-25 12:43 | CONS ---
Date/Time of Note Date/Time of Note DATE: 01/25/17 TIME: 12:41 Assessment/Plan Assessment/Plan Additional Assessment/Plan Ventilator setting; AC of 20, tidal volume 500, PEEP of 5, 45% FiO2. Assessment and recommendations; 1. Patient admitted with sepsis and pneumonia off antibiotics now. 2. Chronic respiratory failure due to end-stage pulmonary fibrosis. Patient requiring high FiO2. 3. History of hypertension. Continue current treatment. Patient awaiting discharge. Consultation Date/Type/Reason Admit Date/Time Jan 09, 2017 at 18:37 Initial Consult Date 01/10/17 Type of Consultation: Pulmonary Referring Provider: MATTHEW CALDERON MD 24 HR Interval Summary Free Text/Dictation Patient condition remains stable. Remains awake alert. Has remained hemodynamically stable. General exam; elderly male, awake and alert. On ventilator via tracheostomy, currently in no distress. Exam/Review of Systems Vital Signs Vitals Vital Signs Date Time Temp Pulse Resp B/P Pulse Ox O2 Delivery O2 Flow Rate FiO2 01/25/17 11:05 109 29 96 45 01/25/17 11:02 98.4 120/70 01/22/17 12:42 Mechanical Ventilator Trach Collar Intake and Output 01/24/17 01/24/17 01/25/17 15:00 23:00 07:00 Intake Total 1110 ml 750 ml Output Total 800 ml 1700 ml Balance 310 ml -950 ml Exam HEENT exam; supple neck, no JVD. No lymphadenopathy. Midline trachea. No thyromegaly. Tracheostomy in place. Patient is edentulous. Chest exam; scattered crackles bilaterally. S1-S2 audible, no murmurs. Regular rhythm. Abdomen exam; soft, no organomegaly. G-tube in place. Bowel sounds audible. Abdomen is nontender. Extremity exam; no peripheral edema. DOUGHNUT FRYER exam; no focal deficit. Results Result Diagram: 01/25/17 0621 01/25/17 0621 Results 24 hrs Laboratory Tests Test 01/25/17 06:21 01/25/17 08:01 White Blood Count 10.8 Red Blood Count 3.44 L Hemoglobin 10.4 L Hematocrit 32.2 L Mean Corpuscular Volume 93.6 Mean Corpuscular Hemoglobin 30.2 Mean Corpuscular Hemoglobin Concent 32.3 Red Cell Distribution Width 16.0 H Platelet Count 320 Mean Platelet Volume 10.2 Neutrophils % 78.7 H Lymphocytes % 11.0 L Monocytes % 6.2 Eosinophils % 2.9 Basophils % 0.6 Nucleated Red Blood Cells % 0.0 Neutrophils # (Manual) 8.5 H Lymphocytes # 1.2 Monocytes # 0.7 Eosinophils # 0.3 Basophils # 0.1 Nucleated Red Blood Cells # 0.0 Sodium Level 136 Potassium Level 3.9 Chloride Level 95 L Carbon Dioxide Level 36 H Anion Gap 9 # Blood Urea Nitrogen 17 Creatinine 0.52 L Glucose Level 116 Calcium Level 9.2 Lab Scanned Report BLOOD TRANSFUSION Medications Medications Current Medications Ondansetron HCl (Zofran Inj) 4 mg Q6H PRN IV NAUSEA AND/OR VOMITING; Start at 22:00 Acetaminophen (Tylenol Tab) 650 mg Q6H PRN PO PAIN LEVEL 1-3 OR FEVER Last administered on 01/10/17 15:46; Admin Dose 650 MG; Start 01/09/17 at 22:00 Morphine Sulfate (morphine) 2 mg Q4H PRN IV PAIN LEVEL 7-10 Last administered on 01/22/17 22:27; Admin Dose 2 MG; Start 01/09/17 at 22:00 Clonidine (Catapres) 0.1 mg Q6 GTB Last administered on 01/25/17 00:48; Admin Dose 0.1 MG; Start 01/10/17 at 18:00 Diphenhydramine HCl (Benadryl) 25 mg Q6H PRN GTB ITCHING Last administered on 14:47; Admin Dose 25 MG; Start 01/10/17 at 17:00 Folic Acid (Folic Acid) 1 mg DAILY GTB Last administered on 01/25/17 10:28; Admin Dose 1 MG; Start 01/11/17 at 09:00 Acetaminophen/ Hydrocodone Bitart ([place] (5/325)) 1 tab Q4H PRN GTB PAIN LEVEL 4-10/10 Last administered on 01/25/17 10:25; Admin Dose 1 TAB; Start 01/10/17 at 17:00 Lactobacillus Acidophilus (Florajen3 Capsule) 3 each TID PEG Last administered on 01/25/17 10:18; Admin Dose 3 EACH; Start 01/10/17 at 21:00 Lansoprazole (Prevacid) 30 mg DAILY GTB Last administered on 01/25/17 10:19; Admin Dose 30 MG; Start 01/11/17 at 09:00 Metoprolol Tartrate (Lopressor) 50 mg BID GTB Last administered on 01/25/17 10: 19; Admin Dose 50 MG; Start 01/10/17 at 21:00 Oxcarbazepine (Trileptal) 300 mg BID GTB Last administered on 01/25/17 10:19; Admin Dose 300 MG; Start 01/10/17 at 21:00 Metoprolol Tartrate (Lopressor) 5 mg Q4 PRN IV NOTE; Start 01/10/17 at 17:00 Ascorbic Acid (Vitamin C) 500 mg DAILY GTB Last administered on 01/25/17 10:19 ; Admin Dose 500 MG; Start 01/11/17 at 09:00 Diphenhydramine HCl (Benadryl) 25 mg Q6H PRN IV Agitation Last administered on 01/17/17 20:22; Admin Dose 25 MG; Start 01/10/17 at 17:30 Multivitamins 30 ml 30 ml DAILY GTB Last administered on 01/25/17 10:18; Admin Dose 30 ML; Start 01/11/17 at 09:00 Sodium Chloride (NS) 1,000 ml @ 30 mls/hr Q24H IV Last administered on 12:19; Admin Dose 30 MLS/HR; Start 01/10/17 at 18:30 Acetaminophen (Tylenol Liquid) 650 mg Q6H PRN GTB FOR FEVER T>101 Last administered on 01/24/17 11:56; Admin Dose 650 MG; Start 01/10/17 at 18:30 Guaifenesin/ Codeine Phosphate (Robitussin Ac Liquid Cup) 5 ml Q4H PRN PO COUGH Last administered on 01/18/17 05:25; Admin Dose 5 ML; Start 01/17/17 at 12:00 Quetiapine Fumarate (Seroquel) 50 mg Q6 PO Last administered on 01/25/17 06:02 ; Admin Dose 50 MG; Start 01/18/17 at 00:00 Loperamide HCl (Imodium Cap) 2 mg Q6H PRN GTB DIARRHEA Last administered on 17:22; Admin Dose 2 MG; Start 01/20/17 at 16:30 Nystatin (Nystatin Susp) 5 ml Q12 PO Last administered on 01/25/17t 10:17; Admin Dose 5 ML; Start 01/22/17 at 21:00 JOSE L BLAKE Jan 25, 2017 12:43
[2017-01-25] MEDS: SOD CHLORIDE 0.9% 1,000 ML IV SCH (14:30)
--- NOTE | 2017-01-25 14:59 | CONS ---
Date/Time of Note Date/Time of Note DATE: 01/25/17 TIME: 14:55 Assessment/Plan Assessment/Plan Chief Complaint/Hosp Course IMP: 1.Diastolic CHF 2.HTN 3.Resp failure-chronic s/p trach 4.Pulmonary fibrosis 5. PNA 6.UTI 7. Labial herpes Recc: -Tele -Continue BB as tolerated -Continue abx's and bronchodilators -s/p acyclovir -Follow volume status closely Problems: Consultation Date/Type/Reason Admit Date/Time Jan 09, 2017 at 18:37 Initial Consult Date 01/10/17 Type of Consultation: cardiology Reason for Consultation tachycardia Referring Provider: MATTHEW CALDERON MD Exam/Review of Systems Vital Signs Vitals Vital Signs Date Time Temp Pulse Resp B/P Pulse Ox O2 Delivery O2 Flow Rate FiO2 01/25/17 13:10 110 29 96 45 01/25/17 11:02 98.4 120/70 01/22/17 12:42 Mechanical Ventilator Trach Collar Intake and Output 01/24/17 01/24/17 01/25/17 15:00 23:00 07:00 Intake Total 1110 ml 750 ml Output Total 800 ml 1700 ml Balance 310 ml -950 ml Exam Review of Systems: CONSTITUTIONAL: No fevers, chills. PULMONARY: No sob CARDIOVASCULAR: No chest pain/palpitations GASTROINTESTINAL: No nausea/vomiting. GENITOURINARY: No hematuria/dysuria. MUSCULOSKELETAL: No myagias/arthalgias. PSYCHIATRIC: The patient denies depression. NEUROLOGIC: No weakness Constitutional: alert, oriented Neck: other (trached) Respiratory: diminished breath sounds (at bases/B) Cardiovascular: regular rate and rhythm Gastrointestinal: non-tender, soft Musculoskeletal: muscle tone (normal) Extremities: edema (none) Neurological: other (No focal deficits) Results Result Diagram: 01/25/17 0621 01/25/17 0621 Results 24 hrs Laboratory Tests Test 01/25/17 06:21 01/25/17 08:01 White Blood Count 10.8 Red Blood Count 3.44 L Hemoglobin 10.4 L Hematocrit 32.2 L Mean Corpuscular Volume 93.6 Mean Corpuscular Hemoglobin 30.2 Mean Corpuscular Hemoglobin Concent 32.3 Red Cell Distribution Width 16.0 H Platelet Count 320 Mean Platelet Volume 10.2 Neutrophils % 78.7 H Lymphocytes % 11.0 L Monocytes % 6.2 Eosinophils % 2.9 Basophils % 0.6 Nucleated Red Blood Cells % 0.0 Neutrophils # (Manual) 8.5 H Lymphocytes # 1.2 Monocytes # 0.7 Eosinophils # 0.3 Basophils # 0.1 Nucleated Red Blood Cells # 0.0 Sodium Level 136 Potassium Level 3.9 Chloride Level 95 L Carbon Dioxide Level 36 H Anion Gap 9 # Blood Urea Nitrogen 17 Creatinine 0.52 L Glucose Level 116 Calcium Level 9.2 Lab Scanned Report BLOOD TRANSFUSION Medications Medications Current Medications Ondansetron HCl (Zofran Inj) 4 mg Q6H PRN IV NAUSEA AND/OR VOMITING; Start at 22:00 Acetaminophen (Tylenol Tab) 650 mg Q6H PRN PO PAIN LEVEL 1-3 OR FEVER Last administered on 01/10/17 15:46; Admin Dose 650 MG; Start 01/09/17 at 22:00 Morphine Sulfate (morphine) 2 mg Q4H PRN IV PAIN LEVEL 7-10 Last administered on 01/22/17 22:27; Admin Dose 2 MG; Start 01/09/17 at 22:00 Clonidine (Catapres) 0.1 mg Q6 GTB Last administered on 01/25/17 00:48; Admin Dose 0.1 MG; Start 01/10/17 at 18:00 Diphenhydramine HCl (Benadryl) 25 mg Q6H PRN GTB ITCHING Last administered on 14:47; Admin Dose 25 MG; Start 01/10/17 at 17:00 Folic Acid (Folic Acid) 1 mg DAILY GTB Last administered on 01/25/17 10:28; Admin Dose 1 MG; Start 01/11/17 at 09:00 Acetaminophen/ Hydrocodone Bitart ([place] (5/325)) 1 tab Q4H PRN GTB PAIN LEVEL 4-10/10 Last administered on 01/25/17 10:25; Admin Dose 1 TAB; Start 01/10/17 at 17:00 Lactobacillus Acidophilus (Florajen3 Capsule) 3 each TID PEG Last administered on 01/25/17 13:45; Admin Dose 3 EACH; Start 01/10/17 at 21:00 Lansoprazole (Prevacid) 30 mg DAILY GTB Last administered on 01/25/17 10:19; Admin Dose 30 MG; Start 01/11/17 at 09:00 Metoprolol Tartrate (Lopressor) 50 mg BID GTB Last administered on 01/25/17 10: 19; Admin Dose 50 MG; Start 01/10/17 at 21:00 Oxcarbazepine (Trileptal) 300 mg BID GTB Last administered on 01/25/17 10:19; Admin Dose 300 MG; Start 01/10/17 at 21:00 Metoprolol Tartrate (Lopressor) 5 mg Q4 PRN IV NOTE; Start 01/10/17 at 17:00 Ascorbic Acid (Vitamin C) 500 mg DAILY GTB Last administered on 01/25/17 10:19 ; Admin Dose 500 MG; Start 01/11/17 at 09:00 Diphenhydramine HCl (Benadryl) 25 mg Q6H PRN IV Agitation Last administered on 01/17/17 20:22; Admin Dose 25 MG; Start 01/10/17 at 17:30 Multivitamins 30 ml 30 ml DAILY GTB Last administered on 01/25/17 10:18; Admin Dose 30 ML; Start 01/11/17 at 09:00 Sodium Chloride (NS) 1,000 ml @ 30 mls/hr Q24H IV Last administered on 12:19; Admin Dose 30 MLS/HR; Start 01/10/17 at 18:30 Acetaminophen (Tylenol Liquid) 650 mg Q6H PRN GTB FOR FEVER T>101 Last administered on 01/24/17 11:56; Admin Dose 650 MG; Start 01/10/17 at 18:30 Guaifenesin/ Codeine Phosphate (Robitussin Ac Liquid Cup) 5 ml Q4H PRN PO COUGH Last administered on 01/18/17 05:25; Admin Dose 5 ML; Start 01/17/17 at 12:00 Quetiapine Fumarate (Seroquel) 50 mg Q6 PO Last administered on 01/25/17 13:45 ; Admin Dose 50 MG; Start 01/18/17 at 00:00 Loperamide HCl (Imodium Cap) 2 mg Q6H PRN GTB DIARRHEA Last administered on 17:22; Admin Dose 2 MG; Start 01/20/17 at 16:30 Nystatin (Nystatin Susp) 5 ml Q12 PO Last administered on 01/25/17t 10:17; Admin Dose 5 ML; Start 01/22/17 at 21:00 CLOVIS LEON Jan 25, 2017 14:59
--- NOTE | 2017-01-25 16:48 | PN ---
Date/Time of Note Date/Time of Note DATE: 01/25/17 TIME: 16:44 Assessment/Plan Lines/Catheters IV Catheter Type (from Nrsg): Peripheral IV Urinary Cath still in place: Yes Subjective 24 Hr Interval Summary Constitutional: requiring IVF, requiring O2 Respiratory: no complaints Cardiovascular: no complaints Gastrointestinal: diarrhea Genitourinary: no complaints Musculoskeletal: no complaints Exam/Review of Systems Vital Signs Vitals Vital Signs Date Time Temp Pulse Resp B/P Pulse Ox O2 Delivery O2 Flow Rate FiO2 01/25/17 15:27 98.1 78 17 117/64 98 01/25/17 15:10 30 01/22/17 12:42 Mechanical Ventilator Trach Collar Intake and Output 01/24/17 01/24/17 01/25/17 15:00 23:00 07:00 Intake Total 1110 ml 750 ml Output Total 800 ml 1700 ml Balance 310 ml -950 ml Exam Constitutional: alert, well developed Respiratory: diminished breath sounds, normal air movement Cardiovascular: nl pulses, other (ST - 110), regular rate and rhythm Gastrointestinal: non-tender, other, soft Musculoskeletal: nl extremities to inspection Extremities: normal pulses Results Result Diagram: 01/25/17 0621 01/25/17 0621 Results 24 hrs Laboratory Tests Test 01/25/17 06:21 01/25/17 08:01 White Blood Count 10.8 Red Blood Count 3.44 L Hemoglobin 10.4 L Hematocrit 32.2 L Mean Corpuscular Volume 93.6 Mean Corpuscular Hemoglobin 30.2 Mean Corpuscular Hemoglobin Concent 32.3 Red Cell Distribution Width 16.0 H Platelet Count 320 Mean Platelet Volume 10.2 Neutrophils % 78.7 H Lymphocytes % 11.0 L Monocytes % 6.2 Eosinophils % 2.9 Basophils % 0.6 Nucleated Red Blood Cells % 0.0 Neutrophils # (Manual) 8.5 H Lymphocytes # 1.2 Monocytes # 0.7 Eosinophils # 0.3 Basophils # 0.1 Nucleated Red Blood Cells # 0.0 Sodium Level 136 Potassium Level 3.9 Chloride Level 95 L Carbon Dioxide Level 36 H Anion Gap 9 # Blood Urea Nitrogen 17 Creatinine 0.52 L Glucose Level 116 Calcium Level 9.2 Lab Scanned Report BLOOD TRANSFUSION Medications Medications Current Medications Ondansetron HCl (Zofran Inj) 4 mg Q6H PRN IV NAUSEA AND/OR VOMITING; Start at 22:00 Acetaminophen (Tylenol Tab) 650 mg Q6H PRN PO PAIN LEVEL 1-3 OR FEVER Last administered on 01/10/17 15:46; Admin Dose 650 MG; Start 01/09/17 at 22:00 Morphine Sulfate (morphine) 2 mg Q4H PRN IV PAIN LEVEL 7-10 Last administered on 01/22/17 22:27; Admin Dose 2 MG; Start 01/09/17 at 22:00 Clonidine (Catapres) 0.1 mg Q6 GTB Last administered on 01/25/17 00:48; Admin Dose 0.1 MG; Start 01/10/17 at 18:00 Diphenhydramine HCl (Benadryl) 25 mg Q6H PRN GTB ITCHING Last administered on 14:47; Admin Dose 25 MG; Start 01/10/17 at 17:00 Folic Acid (Folic Acid) 1 mg DAILY GTB Last administered on 01/25/17 10:28; Admin Dose 1 MG; Start 01/11/17 at 09:00 Acetaminophen/ Hydrocodone Bitart ([place] (5/325)) 1 tab Q4H PRN GTB PAIN LEVEL 4-10/10 Last administered on 01/25/17 10:25; Admin Dose 1 TAB; Start 01/10/17 at 17:00 Lactobacillus Acidophilus (Florajen3 Capsule) 3 each TID PEG Last administered on 01/25/17 13:45; Admin Dose 3 EACH; Start 01/10/17 at 21:00 Lansoprazole (Prevacid) 30 mg DAILY GTB Last administered on 01/25/17 10:19; Admin Dose 30 MG; Start 01/11/17 at 09:00 Metoprolol Tartrate (Lopressor) 50 mg BID GTB Last administered on 01/25/17 10: 19; Admin Dose 50 MG; Start 01/10/17 at 21:00 Oxcarbazepine (Trileptal) 300 mg BID GTB Last administered on 01/25/17 10:19; Admin Dose 300 MG; Start 01/10/17 at 21:00 Metoprolol Tartrate (Lopressor) 5 mg Q4 PRN IV NOTE; Start 01/10/17 at 17:00 Ascorbic Acid (Vitamin C) 500 mg DAILY GTB Last administered on 01/25/17 10:19 ; Admin Dose 500 MG; Start 01/11/17 at 09:00 Diphenhydramine HCl (Benadryl) 25 mg Q6H PRN IV Agitation Last administered on 01/17/17 20:22; Admin Dose 25 MG; Start 01/10/17 at 17:30 Multivitamins 30 ml 30 ml DAILY GTB Last administered on 01/25/17 10:18; Admin Dose 30 ML; Start 01/11/17 at 09:00 Sodium Chloride (NS) 1,000 ml @ 30 mls/hr Q24H IV Last administered on 12:19; Admin Dose 30 MLS/HR; Start 01/10/17 at 18:30 Acetaminophen (Tylenol Liquid) 650 mg Q6H PRN GTB FOR FEVER T>101 Last administered on 01/24/17 11:56; Admin Dose 650 MG; Start 01/10/17 at 18:30 Guaifenesin/ Codeine Phosphate (Robitussin Ac Liquid Cup) 5 ml Q4H PRN PO COUGH Last administered on 01/18/17 05:25; Admin Dose 5 ML; Start 01/17/17 at 12:00 Quetiapine Fumarate (Seroquel) 50 mg Q6 PO Last administered on 01/25/17 13:45 ; Admin Dose 50 MG; Start 01/18/17 at 00:00 Loperamide HCl (Imodium Cap) 2 mg Q6H PRN GTB DIARRHEA Last administered on 17:22; Admin Dose 2 MG; Start 01/20/17 at 16:30 Nystatin (Nystatin Susp) 5 ml Q12 PO Last administered on 01/25/17 10:17; Admin Dose 5 ML; Start 01/22/17 at 21:00 CHARITY DUKE Jan 25, 2017 16:48
[2017-01-25] MEDS: morphine 2 MG INJ IV PRN (17:46)
[2017-01-25] MEDS: ACETAMINOPHEN 650MG/20.3ML CUP GTB PRN (20:36)
[2017-01-25] MEDS ORDERED: VANCOMYCIN IV PER PHARMACY XX SCH (23:00)
--- NOTE | 2017-01-25 23:00 | RADRPT ---
PROCEDURE: XR Chest. CLINICAL INDICATION: Cough. Clinical concern for pneumonia TECHNIQUE: Portable AP view of the chest was obtained. COMPARISON: 01/19/2017 FINDINGS: The cardiomediastinal silhouette is within normal limits. Diffuse severe interstitial fibrotic tangela fidel is again noted. A subtle area of new increased density involving the right lower lobe cannot ex clude superimposed acute pneumonia. Tracheostomy remains in satisfactory position. There is no robert dence for pleural effusion, pneumothorax or pulmonary vascular congestion. The osseous structures a re intact with no evidence for acute abnormality. RPTAT:HJJR IMPRESSION: Subtle new area of increased density in the right lower lobe compared 01/19/2017 unable to exclude p neumonia superimposed upon severe pulmonary fibrosis. Physician Rut Date Time Electronically viewed and signed by Physician Rut on 01/25/2017 23:00 /
[2017-01-25 23:34] LABS: ADD UMIC YES; UR ASCORBIC ACID 40 mg/dL (NEGATIVE); UR BACTERIA FEW /HPF (NONE SEEN); UR BILIRUBIN (Dip) NEGATIVE (NEGATIVE); UR BLOOD (Dip) NEGATIVE (NEGATIVE); UR BUDDING YEAST FEW /HPF (NONE SEEN); UR CLARITY SLIGHTLY CLOUDY (CLEAR); UR COLOR YELLOW (YELLOW); UR GLUCOSE (Dip) NEGATIVE (NEGATIVE); UR KETONES (Dip) NEGATIVE (NEGATIVE); UR LEUKOCYTE ESTERASE (Dip) 3+ Leu/ul (NEGATIVE); UR MUCUS FEW /HPF (NONE SEEN); UR NITRITE (Dip) NEGATIVE (NEGATIVE); UR RBC 6 /HPF (0-5); UR SPECIFIC GRAVITY (Dip) 1.014 (1.003-1.030); UR TOTAL PROTEIN (Dip) 1+ mg/dl (NEGATIVE); UR UROBILINOGEN (Dip) NEGATIVE (NEGATIVE)
[2017-01-25] MEDS: MEROPENEM 1 GM/50ML(PMX) 50 ML IVPB SCH (23:47)
[2017-01-26] VITALS (25 sets, daily range): BP systolic 100–163; BP diastolic 57–71; PULSE 86–102; RESP 18–35
[2017-01-26] MEDS ORDERED: VANCOMYCIN 1.25 GM in SOD CHLORIDE 0.9% 250 ML IVPB SCH (01:00)
[2017-01-26] MEDS: ALBUTEROL 18 GM INHALER INH SCH ×6 (01:05→20:51)
[2017-01-26] MEDS: IPRATROPIUM (HFA) 12.9 GM INHALER INH SCH ×6 (01:05→20:50)
[2017-01-26] MEDS: SOD CHLORIDE 0.9% 1,000 ML IV SCH ×2 (01:13→13:51)
[2017-01-26] MEDS: QUETIAPINE 25 MG TAB PO SCH ×4 (05:10→23:28)
[2017-01-26] MEDS: ACETAMINOPHEN 650MG/20.3ML CUP GTB PRN ×2 (05:22→17:33)
[2017-01-26] MEDS: MEROPENEM 1 GM/50ML(PMX) 50 ML IVPB SCH (06:31)
[2017-01-26 06:59] LABS: BASOPHIL # 0.1 10^3/ul (0.0-0.1); BASOPHILS % 0.6 % (0.0-2.0); EOSINOPHILS # 0.2 10^3/ul (0.0-0.5); EOSINOPHILS % 1.3 % (0.0-7.0); HEMOGLOBIN 9.9 g/dl (14.0-18.0); LYMPHOCYTES # 0.9 10^3/ul (0.8-2.9); LYMPHOCYTES % 7.7 % (15.0-51.0); MEAN CORPUSCULAR HGB CONC 31.9 g/dl (32.0-37.0); MEAN CORPUSCULAR VOLUME 93.9 fl (82.0-101.0); MONOCYTE # 0.8 10^3/ul (0.3-0.9); MONOCYTES % 6.9 % (0.0-11.0); NEUTROPHILS % 83.2 % (39.0-77.0); PLATELET COUNT 320 10^3/UL (140-415); POSITIVE DIFF @See below; RED CELL DISTRIBUTION WIDTH 16.1 % (11.5-14.5); WHITE BLOOD COUNT 12.2 10^3/ul (4.8-10.8)
[2017-01-26 07:28] LABS: CREATININE 0.54 mg/dl (0.61-1.24); POTASSIUM 3.9 mmol/L (3.5-5.1)
[2017-01-26] MEDS: FOLIC ACID 1 MG TAB GTB SCH (08:58)
[2017-01-26] MEDS: ASCORBIC ACID 500 MG TAB GTB SCH (08:59)
[2017-01-26] MEDS: METOPROLOL 50 MG TAB GTB SCH ×2 (08:59→21:22)
[2017-01-26] MEDS: LANSOPRAZOLE 30 MG CAP GTB SCH (08:59)
[2017-01-26] MEDS: MULTIVITAMINS 30 ML CUP GTB SCH (08:59)
[2017-01-26] MEDS: OXCARBAZEPINE 300 MG TAB GTB SCH ×2 (08:59→21:17)
[2017-01-26] MEDS: NYSTATIN SUSP 5 ML CUP PO SCH ×2 (09:00→21:18)
[2017-01-26] MEDS: L ACIDOPHIL/B LACTIS/B LONGUM CAPSULE PEG SCH ×3 (09:00→21:17)
--- NOTE | 2017-01-26 10:33 | PN ---
Date/Time of Note Date/Time of Note DATE: 01/26/17 TIME: 10:32 Assessment/Plan VTE Prophylaxis VTE Prophylaxis Intervention: other Lines/Catheters IV [facility]ter Type (from [facility]): Peripheral IV Urinary Cath still in place: Yes Reason Cath still needed: skin wounds contaminated by urine Assessment/Plan Chief Complaint/Hosp Course - Possible recurrent sepsis. S/pt treatment with antibiotics. Dr. Laguerre is following infection disease consultation. - Pulmonary fibrosis. - Ventilatory dependent respiratory failure with tracheostomy. Dr. Souza is following in pulmonology consultation. - Chronic diastolic congestive heart failure. - Dysphagia with PEG. - Fatty liver. - Anemia, stool for OB is negative, continue to monitor H&H. Problems: Subjective 24 Hr Interval Summary Free Text/Dictation Patient complain of abdominal pain Exam/Review of Systems Vital Signs Vitals Vital Signs Date Time Temp Pulse Resp B/P Pulse Ox O2 Delivery O2 Flow Rate FiO2 01/26/17 08:38 100 01/26/17 08:09 98.9 20 100/57 99 01/26/17 05:15 45 01/22/17 12:42 Mechanical Ventilator Trach Collar Intake and Output 01/25/17 01/25/17 01/26/17 14:59 22:59 06:59 Intake Total 700 ml 1970 ml Output Total 300 ml 450 ml Balance 400 ml 1520 ml Exam Constitutional: well developed Head: atraumatic, normocephalic Neck: supple Respiratory: clear to auscultation Cardiovascular: regular rate and rhythm Gastrointestinal: non-tender, soft Extremities: normal pulses Results Result Diagram: 01/26/17 0616 01/26/17 0616 Results 24 hrs Laboratory Tests Test 01/25/17 22:15 01/26/17 06:16 Urine Color YELLOW Urine Clarity SLIGHTLY CLOUDY A Urine pH 6.0 Urine Specific [place] 1.014 Urine Ketones NEGATIVE Urine Nitrite NEGATIVE Urine Bilirubin NEGATIVE Urine Urobilinogen NEGATIVE Urine Leukocyte Esterase 3+ H Urine Microscopic RBC 6 H Urine Microscopic WBC 49 H Urine Bacteria FEW A Urine Mucus FEW A Urine Yeast (Budding) FEW A Urine Hemoglobin NEGATIVE Urine Glucose NEGATIVE Urine Total Protein 1+ H White Blood Count 12.2 H Red Blood Count 3.30 L Hemoglobin 9.9 L Hematocrit 31.0 L Mean Corpuscular Volume 93.9 Mean Corpuscular Hemoglobin 30.0 Mean Corpuscular Hemoglobin Concent 31.9 L Red Cell Distribution Width 16.1 H Platelet Count 320 Mean Platelet Volume 10.0 Neutrophils % 83.2 H Lymphocytes % 7.7 L Monocytes % 6.9 Eosinophils % 1.3 Basophils % 0.6 Nucleated Red Blood Cells % 0.0 Neutrophils # (Manual) 10.1 H Lymphocytes # 0.9 Monocytes # 0.8 Eosinophils # 0.2 Basophils # 0.1 Nucleated Red Blood Cells # 0.0 Sodium Level 136 Potassium Level 3.9 Chloride Level 98 Carbon Dioxide Level 33 H Anion Gap 9 Blood Urea Nitrogen 17 Creatinine 0.54 L Glucose Level 127 Calcium Level 9.0 Medications Medications Current Medications Ondansetron HCl (Zofran Inj) 4 mg Q6H PRN IV NAUSEA AND/OR VOMITING Last administered on 01/25/17 17:46; Admin Dose 4 MG; Start 01/09/17 at 22:00 Acetaminophen (Tylenol Tab) 650 mg Q6H PRN PO PAIN LEVEL 1-3 OR FEVER Last administered on 01/10/17 15:46; Admin Dose 650 MG; Start 01/09/17 at 22:00 Morphine Sulfate (morphine) 2 mg Q4H PRN IV PAIN LEVEL 7-10 Last administered on 01/25/17 17:46; Admin Dose 2 MG; Start 01/09/17 at 22:00 Clonidine (Catapres) 0.1 mg Q6 GTB Last administered on 01/26/17 05:10; Admin Dose 0.1 MG; Start 01/10/17 at 18:00 Diphenhydramine HCl (Benadryl) 25 mg Q6H PRN GTB ITCHING Last administered on 14:47; Admin Dose 25 MG; Start 01/10/17 at 17:00 Folic Acid (Folic Acid) 1 mg DAILY GTB Last administered on 01/26/17 08:58; Admin Dose 1 MG; Start 01/11/17 at 09:00 Acetaminophen/ Hydrocodone Bitart ([place] (5/325)) 1 tab Q4H PRN GTB PAIN LEVEL 4-10/10 Last administered on 01/25/17 10:25; Admin Dose 1 TAB; Start 01/10/17 at 17:00 Lactobacillus Acidophilus (Florajen3 Capsule) 3 each TID PEG Last administered on 01/26/17 09:00; Admin Dose 3 EACH; Start 01/10/17 at 21:00 Lansoprazole (Prevacid) 30 mg DAILY GTB Last administered on 01/26/17 08:59; Admin Dose 30 MG; Start 01/11/17 at 09:00 Metoprolol Tartrate (Lopressor) 50 mg BID GTB Last administered on 01/26/17 08: 59; Admin Dose 50 MG; Start 01/10/17 at 21:00 Oxcarbazepine (Trileptal) 300 mg BID GTB Last administered on 01/26/17 08:59; Admin Dose 300 MG; Start 01/10/17 at 21:00 Metoprolol Tartrate (Lopressor) 5 mg Q4 PRN IV NOTE; Start 01/10/17 at 17:00 Ascorbic Acid (Vitamin C) 500 mg DAILY GTB Last administered on 01/26/17 08:59 ; Admin Dose 500 MG; Start 01/11/17 at 09:00 Diphenhydramine HCl (Benadryl) 25 mg Q6H PRN IV Agitation Last administered on 01/17/17 20:22; Admin Dose 25 MG; Start 01/10/17 at 17:30 Multivitamins 30 ml 30 ml DAILY GTB Last administered on 01/26/17 08:59; Admin Dose 30 ML; Start 01/11/17 at 09:00 Sodium Chloride (NS) 1,000 ml @ 30 mls/hr Q24H IV Last administered on 01:13; Admin Dose 30 MLS/HR; Start 01/10/17 at 18:30 Acetaminophen (Tylenol Liquid) 650 mg Q6H PRN GTB FOR FEVER T>101 Last administered on 01/26/17 05:22; Admin Dose 650 MG; Start 01/10/17 at 18:30 Guaifenesin/ Codeine Phosphate (Robitussin Ac Liquid Cup) 5 ml Q4H PRN PO COUGH Last administered on 01/18/17 05:25; Admin Dose 5 ML; Start 01/17/17 at 12:00 Quetiapine Fumarate (Seroquel) 50 mg Q6 PO Last administered on 01/26/17 05:10 ; Admin Dose 50 MG; Start 01/18/17 at 00:00 Loperamide HCl (Imodium Cap) 2 mg Q6H PRN GTB DIARRHEA Last administered on 17:22; Admin Dose 2 MG; Start 01/20/17 at 16:30 Nystatin 5 ml 5 ml Q12 PO Last administered on 01/26/17 09:00; Admin Dose 5 ML ; Start 01/22/17 at 21:00 Meropenem/Sodium Chloride 50 ml @ 100 mls/hr Q8 IVPB Last administered on 06:31; Admin Dose 100 MLS/HR; Start 01/25/17 at 23:30 Vancomycin HCl (Vancocin) 250 ml @ 125 mls/hr Q24H IVPB ; Start 01/27/17 at 01: 00 NOAH MCGUIRE Jan 26, 2017 10:33
--- NOTE | 2017-01-26 11:42 | CONS ---
Date/Time of Note Date/Time of Note DATE: 01/26/17 TIME: 11:41 Consult Date/Type/Reason Admit Date/Time Jan 09, 2017 at 18:37 Initial Consult Date 01/10/17 Type of Consultation: pulm Ordering Provider: MATTHEW CALDERON MD Subjective Continues mechanical ventilation no significant changes Objective Vital Signs Date Time Temp Pulse Resp B/P Pulse Ox O2 Delivery O2 Flow Rate FiO2 01/26/17 11:35 97.6 84 20 119/71 97 01/26/17 10:56 45 01/22/17 12:42 Mechanical Ventilator Trach Collar Intake and Output 01/25/17 01/25/17 01/26/17 15:00 23:00 07:00 Intake Total 700 ml 1970 ml Output Total 300 ml 450 ml Balance 400 ml 1520 ml Exam PHYSICAL EXAMINATION GENERAL: Elderly gentleman, mechanical ventilation via tracheostomy VITAL SIGNS: see below. HEENT: Pupils equal, round, and reactive to light. Tracheostomy site clean and intact. CARDIAC: S1, S2, 1/6 systolic ejection murmur CHEST: Diminished air entry bilaterally. ABDOMEN: Mildly distended. Bowel sounds present no guarding or rebound EXTREMITIES: No cyanosis, clubbing edema +1 NEUROLOGIC: Generalized weakness Results/Medications Result Diagram: 01/26/17 0616 01/26/17 0616 Results 24 hrs Laboratory Tests Test 01/25/17 22:15 01/26/17 06:16 Urine Color YELLOW Urine Clarity SLIGHTLY CLOUDY A Urine pH 6.0 Urine Specific [place] 1.014 Urine Ketones NEGATIVE Urine Nitrite NEGATIVE Urine Bilirubin NEGATIVE Urine Urobilinogen NEGATIVE Urine Leukocyte Esterase 3+ H Urine Microscopic RBC 6 H Urine Microscopic WBC 49 H Urine Bacteria FEW A Urine Mucus FEW A Urine Yeast (Budding) FEW A Urine Hemoglobin NEGATIVE Urine Glucose NEGATIVE Urine Total Protein 1+ H White Blood Count 12.2 H Red Blood Count 3.30 L Hemoglobin 9.9 L Hematocrit 31.0 L Mean Corpuscular Volume 93.9 Mean Corpuscular Hemoglobin 30.0 Mean Corpuscular Hemoglobin Concent 31.9 L Red Cell Distribution Width 16.1 H Platelet Count 320 Mean Platelet Volume 10.0 Neutrophils % 83.2 H Lymphocytes % 7.7 L Monocytes % 6.9 Eosinophils % 1.3 Basophils % 0.6 Nucleated Red Blood Cells % 0.0 Neutrophils # (Manual) 10.1 H Lymphocytes # 0.9 Monocytes # 0.8 Eosinophils # 0.2 Basophils # 0.1 Nucleated Red Blood Cells # 0.0 Sodium Level 136 Potassium Level 3.9 Chloride Level 98 Carbon Dioxide Level 33 H Anion Gap 9 Blood Urea Nitrogen 17 Creatinine 0.54 L Glucose Level 127 Calcium Level 9.0 Medications Current Medications Ondansetron HCl (Zofran Inj) 4 mg Q6H PRN IV NAUSEA AND/OR VOMITING Last administered on 01/25/17 17:46; Admin Dose 4 MG; Start 01/09/17 at 22:00 Acetaminophen (Tylenol Tab) 650 mg Q6H PRN PO PAIN LEVEL 1-3 OR FEVER Last administered on 01/10/17 15:46; Admin Dose 650 MG; Start 01/09/17 at 22:00 Morphine Sulfate (morphine) 2 mg Q4H PRN IV PAIN LEVEL 7-10 Last administered on 01/25/17 17:46; Admin Dose 2 MG; Start 01/09/17 at 22:00 Clonidine (Catapres) 0.1 mg Q6 GTB Last administered on 01/26/17 05:10; Admin Dose 0.1 MG; Start 01/10/17 at 18:00 Diphenhydramine HCl (Benadryl) 25 mg Q6H PRN GTB ITCHING Last administered on 14:47; Admin Dose 25 MG; Start 01/10/17 at 17:00 Folic Acid (Folic Acid) 1 mg DAILY GTB Last administered on 01/26/17 08:58; Admin Dose 1 MG; Start 01/11/17 at 09:00 Acetaminophen/ Hydrocodone Bitart ([place] (5/325)) 1 tab Q4H PRN GTB PAIN LEVEL 4-10/10 Last administered on 01/25/17 10:25; Admin Dose 1 TAB; Start 01/10/17 at 17:00 Lactobacillus Acidophilus (Florajen3 Capsule) 3 each TID PEG Last administered on 01/26/17 09:00; Admin Dose 3 EACH; Start 01/10/17 at 21:00 Lansoprazole (Prevacid) 30 mg DAILY GTB Last administered on 01/26/17 08:59; Admin Dose 30 MG; Start 01/11/17 at 09:00 Metoprolol Tartrate (Lopressor) 50 mg BID GTB Last administered on 01/26/17 08: 59; Admin Dose 50 MG; Start 01/10/17 at 21:00 Oxcarbazepine (Trileptal) 300 mg BID GTB Last administered on 01/26/17 08:59; Admin Dose 300 MG; Start 01/10/17 at 21:00 Metoprolol Tartrate (Lopressor) 5 mg Q4 PRN IV NOTE; Start 01/10/17 at 17:00 Ascorbic Acid (Vitamin C) 500 mg DAILY GTB Last administered on 01/26/17 08:59 ; Admin Dose 500 MG; Start 01/11/17 at 09:00 Diphenhydramine HCl (Benadryl) 25 mg Q6H PRN IV Agitation Last administered on 01/17/17 20:22; Admin Dose 25 MG; Start 01/10/17 at 17:30 Multivitamins 30 ml 30 ml DAILY GTB Last administered on 01/26/17 08:59; Admin Dose 30 ML; Start 01/11/17 at 09:00 Sodium Chloride (NS) 1,000 ml @ 30 mls/hr Q24H IV Last administered on 01:13; Admin Dose 30 MLS/HR; Start 01/10/17 at 18:30 Acetaminophen (Tylenol Liquid) 650 mg Q6H PRN GTB FOR FEVER T>101 Last administered on 01/26/17 05:22; Admin Dose 650 MG; Start 01/10/17 at 18:30 Guaifenesin/ Codeine Phosphate (Robitussin Ac Liquid Cup) 5 ml Q4H PRN PO COUGH Last administered on 01/18/17 05:25; Admin Dose 5 ML; Start 01/17/17 at 12:00 Quetiapine Fumarate (Seroquel) 50 mg Q6 PO Last administered on 01/26/17 05:10 ; Admin Dose 50 MG; Start 01/18/17 at 00:00 Loperamide HCl (Imodium Cap) 2 mg Q6H PRN GTB DIARRHEA Last administered on 17:22; Admin Dose 2 MG; Start 01/20/17 at 16:30 Nystatin 5 ml 5 ml Q12 PO Last administered on 01/26/17 09:00; Admin Dose 5 ML ; Start 01/22/17 at 21:00 Meropenem/Sodium Chloride 50 ml @ 100 mls/hr Q8 IVPB Last administered on t 06:31; Admin Dose 100 MLS/HR; Start 01/25/17 at 23:30 Vancomycin HCl (Vancocin) 250 ml @ 125 mls/hr Q24H IVPB ; Start 01/27/17 at 01: 00 Assessment/Plan Chief Complaint/Hosp Course IMPRESSION: 1. Chronic hypoxemic respiratory failure, secondary to pulmonary fibrosis with possible tracheobronchitis. 2. Severe sepsis on admission, now improved with current antibiotics of cefepime and vancomycin. 3. Dysphagia with gastrostomy tube. 4. Encephalopathy questionable toxic metabolic 5. Hypokalemia PLAN: 1. Continue current broad-spectrum antibiotics. 2. Vent support. 3. Tube feeding. 4. DVT and GI prophylaxis. Discharge planning Problems: COLETTE SAAVEDRA [facility], [facility] Jan 26, 2017 11:42
[2017-01-26] MEDS: VANCOMYCIN HCL 250 MG/5ML POSYG GTB SCH ×3 (13:51→23:28)
[2017-01-26] MEDS: metroNIDAZOLE 500 MG/NS (PMX) 100 ML IVPB SCH ×2 (13:51→21:18)
[2017-01-26] MEDS: morphine 2 MG INJ IV PRN ×2 (14:21→23:29)
--- NOTE | 2017-01-26 18:49 | CONS ---
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 coli - recurrent thrush - underlying pulmonary fibrosis - labial herpes, s/p acyclovir - rash/erythroderma to caspofungin according to Pt's RN on 01/20/2017 - VDRF s/p trach 10/09/2016 - s/p recurrent sepsis due to HCAP and UTI - h/o HCAP due to MDR acinetobacter and ESBL+E. Coli - dysphagia s/p PEG placement 10/09/2016 - erythroderma of unclear etiology in 11/2016, improved - h/o CARLOS - h/o recurrent UTI due to ESBL+E. Coli - h/o funguria - h/o bacteremia 10/28/2016 due to enterococcus faecium. Midline was dc'd - h/o bacteremia 12/21/2016 due to enterococcus faecalis - s/p severe sepsis due to UTI, prob aspiration after hematemesis and multiple intubation events, and HCAP - s/p acute UGIB of unclear etiology; s/p EGD 10/01/2016 showing no active bleeding site - HLD and fatty liver - h/o alcoholism - chronic diastolic HF - diverticulosis, seen on CT at [facility] - severe protein calorie malnutrition - h/o fall and trauma to R foot recommendations: - started on IV Flagyl 500 mg q8h and pGT vancomycin 250 mg q6h for C. diff colitis (01/26/2017-) - empiric vancomycin and meropenem which was started overnight was discontinued - follow up on xiao cultures - continue nystatin for thrush Management d/w RN Sherlyn, patient, pt's and Dr. Childers Problems: Consultation Date/Type/Reason Admit Date/Time Jan 09, 2017 at 18:37 Initial Consult Date 01/10/17 Type of Consultation: Infectious Disease Referring Provider: MATTHEW CALDERON MD 24 HR Interval Summary Free Text/Dictation Spiked fever last night, pancultures sent, and pt was restarted on empiric vancomycin and meropenem. Tmax 100.1, +c diff positive and abx were changed to IV flagyl and pGT vanco. C/o mild diffuse abd pain, n/v x1, and multiple episodes of diarrhea; 10x per d/ w pt's . Exam/Review of Systems Vital Signs Vitals Vital Signs Date Time Temp Pulse Resp B/P Pulse Ox O2 Delivery O2 Flow Rate FiO2 01/26/17 17:36 100 30 97 45 01/26/17 15:29 99.4 100/57 01/22/17 12:42 Mechanical Ventilator Trach Collar Intake and Output 01/25/17 01/25/17 01/26/17 15:00 23:00 07:00 Intake Total 700 ml 1970 ml Output Total 300 ml 450 ml Balance 400 ml 1520 ml Exam Constitutional: alert, frail, non-verbal, well developed Head: atraumatic, normocephalic, other (temporal wasting) Eyes: nl conjunctiva, nl lids, nl sclera ENMT: nl external ears & nose Neck: other (trach) Respiratory: diminished breath sounds, crackles/rales (few) Cardiovascular: nl pulses, regular rate and rhythm Gastrointestinal: non-tender, other (G-tube present), soft Genitourinary - Male: other (Robin catheter present) Musculoskeletal: nl extremities to inspection Extremities: No edema Neurological: other (Nods to simple questions when spoken to in Turkmen) Skin: nl turgor, No rash Results Result Diagram: 01/26/17 0616 01/26/17 0616 Results 24 hrs Laboratory Tests Test 01/25/17 22:15 01/26/17 06:16 Urine Color YELLOW Urine Clarity SLIGHTLY CLOUDY A Urine pH 6.0 Urine Specific [place] 1.014 Urine Ketones NEGATIVE Urine Nitrite NEGATIVE Urine Bilirubin NEGATIVE Urine Urobilinogen NEGATIVE Urine Leukocyte Esterase 3+ H Urine Microscopic RBC 6 H Urine Microscopic WBC 49 H Urine Bacteria FEW A Urine Mucus FEW A Urine Yeast (Budding) FEW A Urine Hemoglobin NEGATIVE Urine Glucose NEGATIVE Urine Total Protein 1+ H White Blood Count 12.2 H Red Blood Count 3.30 L Hemoglobin 9.9 L Hematocrit 31.0 L Mean Corpuscular Volume 93.9 Mean Corpuscular Hemoglobin 30.0 Mean Corpuscular Hemoglobin Concent 31.9 L Red Cell Distribution Width 16.1 H Platelet Count 320 Mean Platelet Volume 10.0 Neutrophils % 83.2 H Lymphocytes % 7.7 L Monocytes % 6.9 Eosinophils % 1.3 Basophils % 0.6 Nucleated Red Blood Cells % 0.0 Neutrophils # (Manual) 10.1 H Lymphocytes # 0.9 Monocytes # 0.8 Eosinophils # 0.2 Basophils # 0.1 Nucleated Red Blood Cells # 0.0 Sodium Level 136 Potassium Level 3.9 Chloride Level 98 Carbon Dioxide Level 33 H Anion Gap 9 Blood Urea Nitrogen 17 Creatinine 0.54 L Glucose Level 127 Calcium Level 9.0 Medications Medications Current Medications Ondansetron HCl (Zofran Inj) 4 mg Q6H PRN IV NAUSEA AND/OR VOMITING Last administered on 01/25/17 17:46; Admin Dose 4 MG; Start 01/09/17 at 22:00 Acetaminophen (Tylenol Tab) 650 mg Q6H PRN PO PAIN LEVEL 1-3 OR FEVER Last administered on 01/10/17 15:46; Admin Dose 650 MG; Start 01/09/17 at 22:00 Morphine Sulfate (morphine) 2 mg Q4H PRN IV PAIN LEVEL 7-10 Last administered on 01/26/17 14:21; Admin Dose 2 MG; Start 01/09/17 at 22:00 Clonidine (Catapres) 0.1 mg Q6 GTB Last administered on 01/26/17 12:49; Admin Dose 0.1 MG; Start 01/10/17 at 18:00 Diphenhydramine HCl (Benadryl) 25 mg Q6H PRN GTB ITCHING Last administered on 14:47; Admin Dose 25 MG; Start 01/10/17 at 17:00 Folic Acid (Folic Acid) 1 mg DAILY GTB Last administered on 01/26/17 08:58; Admin Dose 1 MG; Start 01/11/17 at 09:00 Acetaminophen/ Hydrocodone Bitart ([place] (5/325)) 1 tab Q4H PRN GTB PAIN LEVEL 4-10/10 Last administered on 01/25/17 10:25; Admin Dose 1 TAB; Start 01/10/17 at 17:00 Lactobacillus Acidophilus (Florajen3 Capsule) 3 each TID PEG Last administered on 01/26/17 12:49; Admin Dose 3 EACH; Start 01/10/17 at 21:00 Lansoprazole (Prevacid) 30 mg DAILY GTB Last administered on 01/26/17 08:59; Admin Dose 30 MG; Start 01/11/17 at 09:00 Metoprolol Tartrate (Lopressor) 50 mg BID GTB Last administered on 01/26/17 08: 59; Admin Dose 50 MG; Start 01/10/17 at 21:00 Oxcarbazepine (Trileptal) 300 mg BID GTB Last administered on 01/26/17 08:59; Admin Dose 300 MG; Start 01/10/17 at 21:00 Metoprolol Tartrate (Lopressor) 5 mg Q4 PRN IV NOTE; Start 01/10/17 at 17:00 Ascorbic Acid (Vitamin C) 500 mg DAILY GTB Last administered on 01/26/17 08:59 ; Admin Dose 500 MG; Start 01/11/17 at 09:00 Diphenhydramine HCl (Benadryl) 25 mg Q6H PRN IV Agitation Last administered on 01/17/17 20:22; Admin Dose 25 MG; Start 01/10/17 at 17:30 Multivitamins 30 ml 30 ml DAILY GTB Last administered on 01/26/17 08:59; Admin Dose 30 ML; Start 01/11/17 at 09:00 Sodium Chloride (NS) 1,000 ml @ 30 mls/hr Q24H IV Last administered on 01:13; Admin Dose 30 MLS/HR; Start 01/10/17 at 18:30 Acetaminophen (Tylenol Liquid) 650 mg Q6H PRN GTB FOR FEVER T>101 Last administered on 01/26/17 17:33; Admin Dose 650 MG; Start 01/10/17 at 18:30 Guaifenesin/ Codeine Phosphate (Robitussin Ac Liquid Cup) 5 ml Q4H PRN PO COUGH Last administered on 01/18/17 05:25; Admin Dose 5 ML; Start 01/17/17 at 12:00 Quetiapine Fumarate (Seroquel) 50 mg Q6 PO Last administered on 01/26/17 17:33 ; Admin Dose 50 MG; Start 01/18/17 at 00:00 Loperamide HCl (Imodium Cap) 2 mg Q6H PRN GTB DIARRHEA Last administered on 17:22; Admin Dose 2 MG; Start 01/20/17 at 16:30 Nystatin (Nystatin Susp) 5 ml Q12 PO Last administered on 01/26/17 09:00; Admin Dose 5 ML; Start 01/22/17 at 21:00 Vancomycin HCl 250 mg 250 mg Q6 GTB Last administered on 01/26/17 17:33; Admin Dose 250 MG; Start 01/26/17 at 13:00 Metronidazole (Flagyl 500 Mg (Pmx)) 100 ml @ 100 mls/hr Q8 IVPB Last administered on 01/26/17 13:51; Admin Dose 100 MLS/HR; Start 01/26/17 at 14:00 MADISON CHILDERS M.D. 01/27/17 1751: Assessment/Plan Assessment/Plan Additional Assessment/Plan Liseth attestation: I discussed the management with CARSON Glover and agree with above. Exam/Review of Systems Results Result Diagram: 01/26/17 0616 01/26/17 0616 RODRIGUEZ GLOVER NP Jan 26, 2017 18:38 MADISON CHILDERS M.D. Jan 27, 2017 17:51
[2017-01-26] MEDS: LOPERAMIDE 2 MG CAP GTB PRN (21:16)
[2017-01-26] MEDS: DIPHENHYDRAMINE 50 MG INJ IV PRN (21:18)
[2017-01-27] VITALS (19 sets, daily range): BP systolic 117–140; BP diastolic 56–78; PULSE 73–104; RESP 17–33
[2017-01-27] MEDS ORDERED: VANCOMYCIN 1 GM in NS 250 ML IVPB SCH (01:00)
[2017-01-27] MEDS: ALBUTEROL 18 GM INHALER INH SCH ×5 (01:39→17:43)
[2017-01-27] MEDS: IPRATROPIUM (HFA) 12.9 GM INHALER INH SCH ×5 (01:40→17:43)
[2017-01-27] MEDS: LOPERAMIDE 2 MG CAP GTB PRN (02:35)
[2017-01-27] MEDS: VANCOMYCIN HCL 250 MG/5ML POSYG GTB SCH ×3 (05:23→18:07)
[2017-01-27] MEDS: QUETIAPINE 25 MG TAB PO SCH ×3 (05:23→18:08)
[2017-01-27] MEDS: metroNIDAZOLE 500 MG/NS (PMX) 100 ML IVPB SCH ×2 (05:23→13:26)
[2017-01-27 07:20] LABS: BASOPHIL # 0.1 10^3/ul (0.0-0.1); BASOPHILS % 0.7 % (0.0-2.0); EOSINOPHILS # 0.3 10^3/ul (0.0-0.5); HEMATOCRIT 31.3 % (42.0-52.0); HEMOGLOBIN 10.1 g/dl (14.0-18.0); LYMPHOCYTES # 1.6 10^3/ul (0.8-2.9); LYMPHOCYTES % 15.5 % (15.0-51.0); MEAN CORPUSCULAR HEMOGLOBIN 30.5 pg (29.0-33.0); MEAN CORPUSCULAR HGB CONC 32.3 g/dl (32.0-37.0); MEAN CORPUSCULAR VOLUME 94.6 fl (82.0-101.0); MEAN PLATELET VOLUME 10.1 fl (7.4-10.4); MONOCYTE # 0.5 10^3/ul (0.3-0.9); MONOCYTES % 4.6 % (0.0-11.0); NEUTROPHILS % 75.7 % (39.0-77.0); PLATELET COUNT 320 10^3/UL (140-415); POSITIVE DIFF @See below; RED BLOOD COUNT 3.31 10^6/ul (4.70-6.10); RED CELL DISTRIBUTION WIDTH 16.1 % (11.5-14.5); WHITE BLOOD COUNT 10.4 10^3/ul (4.8-10.8)
[2017-01-27 07:49] LABS: CALCIUM 9.1 mg/dl (8.4-10.2); CREATININE 0.5 mg/dl (0.61-1.24); POTASSIUM 3.7 mmol/L (3.5-5.1)
--- NOTE | 2017-01-27 09:15 | CONS ---
Date/Time of Note Date/Time of Note DATE: 01/27/17 TIME: 09:14 Consult Date/Type/Reason Admit Date/Time Jan 09, 2017 at 18:37 Initial Consult Date 01/10/17 Type of Consultation: Pulm Ordering Provider: MATTHEW CALDERON MD Subjective Comfortable this morning Started on treatment for C diff Objective Vital Signs Date Time Temp Pulse Resp B/P Pulse Ox O2 Delivery O2 Flow Rate FiO2 01/27/17 09:05 101 28 99 45 01/27/17 08:12 98.7 126/59 Intake and Output 01/26/17 01/26/17 01/27/17 15:00 23:00 07:00 Intake Total 150 ml 1160 ml 1150 ml Output Total 450 ml 600 ml Balance 150 ml 710 ml 550 ml Exam PHYSICAL EXAMINATION GENERAL: Elderly gentleman, on mechanical ventilation via tracheostomy VITAL SIGNS: see below. HEENT: Pupils equal, round, and reactive to light. Tracheostomy site clean and intact. CARDIAC: S1, S2, 1/6 systolic ejection murmur CHEST: Diminished air entry bilaterally. ABDOMEN: Mildly distended. Bowel sounds present no guarding or rebound EXTREMITIES: No cyanosis, clubbing edema +1 NEUROLOGIC: Generalized weakness Results/Medications Result Diagram: 01/27/17 0634 01/27/17 0634 Results 24 hrs Laboratory Tests Test 01/27/17 06:34 White Blood Count 10.4 Red Blood Count 3.31 L Hemoglobin 10.1 L Hematocrit 31.3 L Mean Corpuscular Volume 94.6 Mean Corpuscular Hemoglobin 30.5 Mean Corpuscular Hemoglobin Concent 32.3 Red Cell Distribution Width 16.1 H Platelet Count 320 Mean Platelet Volume 10.1 Neutrophils % 75.7 Lymphocytes % 15.5 Monocytes % 4.6 Eosinophils % 3.0 Basophils % 0.7 Nucleated Red Blood Cells % 0.0 Neutrophils # (Manual) 7.9 H Lymphocytes # 1.6 Monocytes # 0.5 Eosinophils # 0.3 Basophils # 0.1 Nucleated Red Blood Cells # 0.0 Sodium Level 137 Potassium Level 3.7 Chloride Level 100 Carbon Dioxide Level 31 Anion Gap 10 Blood Urea Nitrogen 16 Creatinine 0.50 L Glucose Level 126 Calcium Level 9.1 Medications Current Medications Ondansetron HCl (Zofran Inj) 4 mg Q6H PRN IV NAUSEA AND/OR VOMITING Last administered on 01/25/17 17:46; Admin Dose 4 MG; Start 01/09/17 at 22:00 Acetaminophen (Tylenol Tab) 650 mg Q6H PRN PO PAIN LEVEL 1-3 OR FEVER Last administered on 01/10/17 15:46; Admin Dose 650 MG; Start 01/09/17 at 22:00 Morphine Sulfate (morphine) 2 mg Q4H PRN IV PAIN LEVEL 7-10 Last administered on 01/26/17 23:29; Admin Dose 2 MG; Start 01/09/17 at 22:00 Clonidine (Catapres) 0.1 mg Q6 GTB Last administered on 01/26/17 12:49; Admin Dose 0.1 MG; Start 01/10/17 at 18:00 Diphenhydramine HCl (Benadryl) 25 mg Q6H PRN GTB ITCHING Last administered on 14:47; Admin Dose 25 MG; Start 01/10/17 at 17:00 Folic Acid (Folic Acid) 1 mg DAILY GTB Last administered on 01/26/17 08:58; Admin Dose 1 MG; Start 01/11/17 at 09:00 Acetaminophen/ Hydrocodone Bitart ([place] (5/325)) 1 tab Q4H PRN GTB PAIN LEVEL 4-10/10 Last administered on 01/25/17 10:25; Admin Dose 1 TAB; Start 01/10/17 at 17:00 Lactobacillus Acidophilus (Florajen3 Capsule) 3 each TID PEG Last administered on 01/26/17 21:17; Admin Dose 3 EACH; Start 01/10/17 at 21:00 Lansoprazole (Prevacid) 30 mg DAILY GTB Last administered on 01/26/17 08:59; Admin Dose 30 MG; Start 01/11/17 at 09:00 Metoprolol Tartrate (Lopressor) 50 mg BID GTB Last administered on 01/26/17 21: 22; Admin Dose 50 MG; Start 01/10/17 at 21:00 Oxcarbazepine (Trileptal) 300 mg BID GTB Last administered on 01/26/17 21:17; Admin Dose 300 MG; Start 01/10/17 at 21:00 Metoprolol Tartrate (Lopressor) 5 mg Q4 PRN IV NOTE; Start 01/10/17 at 17:00 Ascorbic Acid (Vitamin C) 500 mg DAILY GTB Last administered on 01/26/17 08:59 ; Admin Dose 500 MG; Start 01/11/17 at 09:00 Diphenhydramine HCl (Benadryl) 25 mg Q6H PRN IV Agitation Last administered on 01/26/17 21:18; Admin Dose 25 MG; Start 01/10/17 at 17:30 Multivitamins 30 ml 30 ml DAILY GTB Last administered on 01/26/17 08:59; Admin Dose 30 ML; Start 01/11/17 at 09:00 Sodium Chloride (NS) 1,000 ml @ 30 mls/hr Q24H IV Last administered on 01:13; Admin Dose 30 MLS/HR; Start 01/10/17 at 18:30 Acetaminophen (Tylenol Liquid) 650 mg Q6H PRN GTB FOR FEVER T>101 Last administered on 01/26/17 17:33; Admin Dose 650 MG; Start 01/10/17 at 18:30 Guaifenesin/ Codeine Phosphate (Robitussin Ac Liquid Cup) 5 ml Q4H PRN PO COUGH Last administered on 01/18/17 05:25; Admin Dose 5 ML; Start 01/17/17 at 12:00 Quetiapine Fumarate (Seroquel) 50 mg Q6 PO Last administered on 01/27/17 05:23 ; Admin Dose 50 MG; Start 01/18/17 at 00:00 Loperamide HCl (Imodium Cap) 2 mg Q6H PRN GTB DIARRHEA Last administered on 01/27 02:35; Admin Dose 2 MG; Start 01/20/17 at 16:30 Nystatin (Nystatin Susp) 5 ml Q12 PO Last administered on 01/26/17 21:18; Admin Dose 5 ML; Start 01/22/17 at 21:00 Vancomycin HCl 250 mg 250 mg Q6 GTB Last administered on 01/27/17 05:23; Admin Dose 250 MG; Start 01/26/17 at 13:00 Metronidazole (Flagyl 500 Mg (Pmx)) 100 ml @ 100 mls/hr Q8 IVPB Last administered on 01/27/17 05:23; Admin Dose 100 MLS/HR; Start 01/26/17 at 14:00 Assessment/Plan Chief Complaint/Hosp Course IMPRESSION: 1. Chronic hypoxemic respiratory failure, secondary to pulmonary fibrosis with possible tracheobronchitis. 2. Severe sepsis on admission, now improved with current antibiotics. 3. Dysphagia with gastrostomy tube. 4. Encephalopathy questionable toxic metabolic 5. C Diff PLAN: 1. Continue current broad-spectrum antibiotics. recent adjustment noted. 2. Vent support. 3. Tube feeding. 4. DVT and GI prophylaxis. Discharge planning ? Problems: COLETTE SAAVEDRA MD, [facility] Jan 27, 2017 09:15
[2017-01-27] MEDS: NYSTATIN SUSP 5 ML CUP PO SCH (09:28)
[2017-01-27] MEDS: MULTIVITAMINS 30 ML CUP GTB SCH (09:28)
[2017-01-27] MEDS: FOLIC ACID 1 MG TAB GTB SCH (09:29)
[2017-01-27] MEDS: L ACIDOPHIL/B LACTIS/B LONGUM CAPSULE PEG SCH ×2 (09:29→12:27)
[2017-01-27] MEDS: LANSOPRAZOLE 30 MG CAP GTB SCH (09:29)
[2017-01-27] MEDS: ASCORBIC ACID 500 MG TAB GTB SCH (09:29)
[2017-01-27] MEDS: OXCARBAZEPINE 300 MG TAB GTB SCH (09:29)
[2017-01-27] MEDS: METOPROLOL 50 MG TAB GTB SCH (09:31)
--- NOTE | 2017-01-27 11:21 | DS ---
Date/Time of Note Date/Time of Note DATE: 01/27/17 TIME: 11:19 Discharge Summary Admission/Discharge Info Admit Date/Time Jan 09, 2017 at 18:37 Discharge Date/Time 01/27/17 Discharge Diagnosis 1) sepsis 2) pneumonia 3) respiratory failure Patient Condition: Fair Consults pulmonary Hx of Present Illness Patient with respiratory failure, pulmonary fibrosis came from [facility] because of increasing respiratory distress. Hospital Course Patient was found to have and treated for pneumonia. He slowly improved and after stabilization, patient will be returned back to [facility]. IMPRESSION: 1. Chronic hypoxemic respiratory failure, secondary to pulmonary fibrosis with possible tracheobronchitis. 2. Severe sepsis on admission, now improved with current antibiotics. 3. Dysphagia with gastrostomy tube. 4. Encephalopathy questionable toxic metabolic 5. C Diff PLAN: 1. Continue current broad-spectrum antibiotics. recent adjustment noted. 2. Vent support. 3. Tube feeding. 4. DVT and GI prophylaxis. Discharge planning ? Home Meds Reported Medications [Multiple Mineral Liq] No Conflict Check, 30 ML GTB DAILY 01/09/17 [Vancomycin Hcl] No Conflict Check, 850 MG IV* Q24H for SEPSIS for 10 Days END DATE 01/13/17 01/09/17 Ascorbic Acid* (Vitamin C* Liq) 500 Mg/5 Ml Syrup, 500 MG GTB DAILY, ML 01/09/17 Protein Supplement (Promod) 946 Ml Liquid, 30 ML GTB BID 01/09/17 Oxcarbazepine* (Oxcarbazepine*) 300 Mg Tablet, 300 MG GTB BID, TAB 01/09/17 Hydrocodone/Acetaminophen ([place] 5-325 Tablet) 1 Each Tablet, 1 EACH GTB Q4H Y for PAIN LEVEL 4-10/10, TAB 01/09/17 Metoprolol Tartrate* (Lopressor*) 50 Mg Tab, 50 MG GTB BID, #60 TAB HOLD IF SBP<110 OR HR<60 01/09/17 Lorazepam* (Lorazepam*) 1 Mg Tablet, 1 MG GTB Q4H Y for ANXIETY, #30 TAB 01/09/17 Loperamide Hcl* (Loperamide Hcl*) 2 Mg Cap, 2 MG GTB Q4H, CAP 01/09/17 Lansoprazole* (Lansoprazole*) 30 Mg Capsule.dr, 30 MG GTB DAILY, CAP 01/09/17 Folic Acid* (Folic Acid*) 1 Mg Tablet, 1 MG GTB DAILY, TAB 01/09/17 L Acidophil/B Lactis/B Longum (FLORAJEN3 CAPSULE) 460 Mg Capsule, 460 MG GTB TID , CAP 01/09/17 Ipratropium-Albuterol (Ipratropium-Albuterol) 0.5-3 Mg/3 Ml Ampul.neb, 3 ML INHALATION Q2H, #30 VIAL 01/09/17 Docusate Sodium* (Colace*) 100 Mg Capsule, 100 MG GTB BID, #60 CAP 01/09/17 Clonidine Hcl* (Clonidine Hcl*) 0.1 Mg Tab, 0.1 MG GTB Q6, TAB FOR HTN SBP>170 01/09/17 Cefepime Hcl/Ivpb* (Cefepime- 1 Gm/50 Ml*) 1 Gm/50 Ml Piggyback, 1 GM IVPB Q12, EA END DATE 01/14/17 01/09/17 Betamethasone Valerate (Betamethasone Valerate) 15 Gm Oint..gm., 15 GM TP DAILY , #1 TUB END DATE 01/10/17 01/09/17 Diphenhydramine Hcl* (Benadryl*) 25 Mg Cap, 25 MG GTB Q6H Y for ITCHING, CAP 01/09/17 Acetaminophen* (Acetaminophen* Susp) 325 Mg/10.15 Ml Solution, 650 MG GTB Q6H Y for FOR FEVER T>101, ML AND FOR PL1-08/0301/09/17 Primary Care Provider Ronny Austin MD Pending Labs Laboratory Tests Test 01/27/17 06:34 White Blood Count 10.410^3/ul (4.8-10.8) Red Blood Count 3.3110^6/ul (4.70-6.10) Hemoglobin 10.1g/dl (14.0-18.0) Hematocrit 31.3% (42.0-52.0) Mean Corpuscular Volume 94.6fl (82.0-101.0) Mean Corpuscular Hemoglobin 30.5pg (29.0-33.0) Mean Corpuscular Hemoglobin Concent 32.3g/dl (32.0-37.0) Red Cell Distribution Width 16.1% (11.5-14.5) Platelet Count 71479^3/UL (140-415) Mean Platelet Volume 10.1fl (7.4-10.4) Neutrophils % 75.7% (39.0-77.0) Lymphocytes % 15.5% (15.0-51.0) Monocytes % 4.6% (0.0-11.0) Eosinophils % 3.0% (0.0-7.0) Basophils % 0.7% (0.0-2.0) Nucleated Red Blood Cells % 0.0/100WBC (0.0-0.0) Neutrophils # (Manual) 7.910^3/ul (1.7-7.5) Lymphocytes # 1.610^3/ul (0.8-2.9) Monocytes # 0.510^3/ul (0.3-0.9) Eosinophils # 0.310^3/ul (0.0-0.5) Basophils # 0.110^3/ul (0.0-0.1) Nucleated Red Blood Cells # 0.010^3/ul (0.0-0.0) Sodium Level 137mmol/L (135-144) Potassium Level 3.7mmol/L (3.5-5.1) Chloride Level 100mmol/L (97-110) Carbon Dioxide Level 31mmol/L (21-31) Anion Gap 10 (8-16) Blood Urea Nitrogen 16mg/dl (7-20) Creatinine 0.50mg/dl (0.61-1.24) Glucose Level 126mg/dl (70-220) Calcium Level 9.1mg/dl (8.4-10.2) NOAH MCGUIRE Jan 27, 2017 11:21
[2017-01-27] MEDS: DIPHENHYDRAMINE 50 MG INJ IV PRN (13:51)
[2017-01-27] MEDS: SOD CHLORIDE 0.9% 1,000 ML IV SCH (14:30)
--- NOTE | 2017-01-27 17:53 | CONS ---
Date/Time of Note Date/Time of Note DATE: 01/27/17 TIME: 17:51 Assessment/Plan Assessment/Plan Chief Complaint/Hosp Course assessment/impression - recurrent fever, resolving - C diff colitis, diagnosed on 01/25/2017 - sepsis vs. SIRS from adverse reaction to lorazepam at 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 coli - recurrent thrush - underlying pulmonary fibrosis - labial herpes, s/p acyclovir - rash/erythroderma to caspofungin according to Pt's RN on 01/20/2017 - VDRF s/p trach 10/09/2016 - s/p recurrent sepsis due to HCAP and UTI - h/o HCAP due to MDR acinetobacter and ESBL+E. Coli - dysphagia s/p PEG placement 10/09/2016 - erythroderma of unclear etiology in 11/2016, improved - h/o CARLOS - h/o recurrent UTI due to ESBL+E. Coli - h/o funguria - h/o bacteremia 10/28/2016 due to enterococcus faecium. Midline was dc'd - h/o bacteremia 12/21/2016 due to enterococcus faecalis - s/p severe sepsis due to UTI, prob aspiration after hematemesis and multiple intubation events, and HCAP - s/p acute UGIB of unclear etiology; s/p EGD 10/01/2016 showing no active bleeding site - HLD and fatty liver - h/o alcoholism - chronic diastolic HF - diverticulosis, seen on CT at [facility] - severe protein calorie malnutrition - h/o fall and trauma to R foot recommendations: - continue IV metronidazole and pGT vancomycin (01/26/2017-) - continue nystatin for thrush management d/w Pt, his Problems: Consultation Date/Type/Reason Admit Date/Time Jan 09, 2017 at 18:37 Initial Consult Date 01/10/17 Type of Consultation: ID Referring Provider: MATTHEW CALDERON MD 24 HR Interval Summary Subjective hx not possible: pt non-verbal (nearly) Detailed Summary Respiratory: other (on vent), No shortness of breath Gastrointestinal: nausea, No vomiting Exam/Review of Systems Vital Signs Vitals Vital Signs Date Time Temp Pulse Resp B/P Pulse Ox O2 Delivery O2 Flow Rate FiO2 01/27/17 16:19 93 01/27/17 16:14 98.8 30 140/78 99 01/27/17 15:20 45 Intake and Output 01/26/17 01/26/17 01/27/17 14:59 22:59 06:59 Intake Total 150 ml 1160 ml 1150 ml Output Total 450 ml 600 ml Balance 150 ml 710 ml 550 ml Exam Constitutional: frail, non-verbal Psych: confusion Head: atraumatic, normocephalic Eyes: nl conjunctiva, nl lids ENMT: nl external ears & nose, nl nasal mucosa & septum Neck: other (trach) Respiratory: crackles/rales Cardiovascular: nl pulses, regular rate and rhythm Gastrointestinal: non-tender, other (PEG), soft Musculoskeletal: nl extremities to inspection Extremities: No edema Neurological: confused, lethargic Skin: nl turgor, No rash or lesions Results Result Diagram: 01/27/17 0634 01/27/17 0634 Results 24 hrs Laboratory Tests Test 01/27/17 06:34 White Blood Count 10.4 Red Blood Count 3.31 L Hemoglobin 10.1 L Hematocrit 31.3 L Mean Corpuscular Volume 94.6 Mean Corpuscular Hemoglobin 30.5 Mean Corpuscular Hemoglobin Concent 32.3 Red Cell Distribution Width 16.1 H Platelet Count 320 Mean Platelet Volume 10.1 Neutrophils % 75.7 Lymphocytes % 15.5 Monocytes % 4.6 Eosinophils % 3.0 Basophils % 0.7 Nucleated Red Blood Cells % 0.0 Neutrophils # (Manual) 7.9 H Lymphocytes # 1.6 Monocytes # 0.5 Eosinophils # 0.3 Basophils # 0.1 Nucleated Red Blood Cells # 0.0 Sodium Level 137 Potassium Level 3.7 Chloride Level 100 Carbon Dioxide Level 31 Anion Gap 10 Blood Urea Nitrogen 16 Creatinine 0.50 L Glucose Level 126 Calcium Level 9.1 Medications Medications Current Medications Ondansetron HCl (Zofran Inj) 4 mg Q6H PRN IV NAUSEA AND/OR VOMITING Last administered on 01/25/17 17:46; Admin Dose 4 MG; Start 01/09/17 at 22:00 Acetaminophen (Tylenol Tab) 650 mg Q6H PRN PO PAIN LEVEL 1-3 OR FEVER Last administered on 01/10/17 15:46; Admin Dose 650 MG; Start 01/09/17 at 22:00 Morphine Sulfate (morphine) 2 mg Q4H PRN IV PAIN LEVEL 7-10 Last administered on 01/26/17 23:29; Admin Dose 2 MG; Start 01/09/17 at 22:00 Clonidine (Catapres) 0.1 mg Q6 GTB Last administered on 01/26/17 12:49; Admin Dose 0.1 MG; Start 01/10/17 at 18:00 Diphenhydramine HCl (Benadryl) 25 mg Q6H PRN GTB ITCHING Last administered on 14:47; Admin Dose 25 MG; Start 01/10/17 at 17:00 Folic Acid (Folic Acid) 1 mg DAILY GTB Last administered on 01/27/17 09:29; Admin Dose 1 MG; Start 01/11/17 at 09:00 Acetaminophen/ Hydrocodone Bitart (Sterling (5/325)) 1 tab Q4H PRN GTB PAIN LEVEL 4-10/10 Last administered on 01/25/17 10:25; Admin Dose 1 TAB; Start 01/10/17 at 17:00 Lactobacillus Acidophilus (Florajen3 Capsule) 3 each TID PEG Last administered on 01/27/17 12:27; Admin Dose 3 EACH; Start 01/10/17 at 21:00 Lansoprazole (Prevacid) 30 mg DAILY GTB Last administered on 01/27/17 09:29; Admin Dose 30 MG; Start 01/11/17 at 09:00 Metoprolol Tartrate (Lopressor) 50 mg BID GTB Last administered on 01/27/17 09: 31; Admin Dose 50 MG; Start 01/10/17 at 21:00 Oxcarbazepine (Trileptal) 300 mg BID GTB Last administered on 01/27/17 09:29; Admin Dose 300 MG; Start 01/10/17 at 21:00 Metoprolol Tartrate (Lopressor) 5 mg Q4 PRN IV NOTE; Start 01/10/17 at 17:00 Ascorbic Acid (Vitamin C) 500 mg DAILY GTB Last administered on 01/27/17 09:29 ; Admin Dose 500 MG; Start 01/11/17 at 09:00 Diphenhydramine HCl (Benadryl) 25 mg Q6H PRN IV Agitation Last administered on 01/27/17 13:51; Admin Dose 25 MG; Start 01/10/17 at 17:30 Multivitamins 30 ml 30 ml DAILY GTB Last administered on 01/27/17 09:28; Admin Dose 30 ML; Start 01/11/17 at 09:00 Sodium Chloride (NS) 1,000 ml @ 30 mls/hr Q24H IV Last administered on 01:13; Admin Dose 30 MLS/HR; Start 01/10/17 at 18:30 Acetaminophen (Tylenol Liquid) 650 mg Q6H PRN GTB FOR FEVER T>101 Last administered on 01/26/17 17:33; Admin Dose 650 MG; Start 01/10/17 at 18:30 Guaifenesin/ Codeine Phosphate (Robitussin Ac Liquid Cup) 5 ml Q4H PRN PO COUGH Last administered on 01/18/17 05:25; Admin Dose 5 ML; Start 01/17/17 at 12:00 Quetiapine Fumarate (Seroquel) 50 mg Q6 PO Last administered on 01/27/17 12:29 ; Admin Dose 50 MG; Start 01/18/17 at 00:00 Loperamide HCl (Imodium Cap) 2 mg Q6H PRN GTB DIARRHEA Last administered on 01/27 02:35; Admin Dose 2 MG; Start 01/20/17 at 16:30 Nystatin (Nystatin Susp) 5 ml Q12 PO Last administered on 01/27/17 09:28; Admin Dose 5 ML; Start 01/22/17 at 21:00 Vancomycin HCl 250 mg 250 mg Q6 GTB Last administered on 01/27/17 12:27; Admin Dose 250 MG; Start 01/26/17 at 13:00 Metronidazole (Flagyl 500 Mg (Pmx)) 100 ml @ 100 mls/hr Q8 IVPB Last administered on 01/27/17 13:26; Admin Dose 100 MLS/HR; Start 01/26/17 at 14:00 MADISON PIERRE M.D. Jan 27, 2017 17:53
== END 2017-01-27 19:05 | disposition other institution (70) | DRG 870 ==
LOC: E/R 16:47 → TEL 18:37 → ICU 01-10 18:22 → TEL 01-12 02:15
PROVIDERS: ADMIT Internal Medicine; ATTEND Internal Medicine
PROC: 5A1955Z Respiratory Ventilation, Greater than 96 Consecutive Hours (ICD-10-PCS; principal; 2017-01-09)
PROC: 30233N1 Transfusion of Nonautologous Red Blood Cells into Peripheral Vein, Percutaneous Approach (ICD-10-PCS; 2017-01-10)
DX: A41.9 Sepsis, unspecified organism (principal); E43 Unspecified severe protein-calorie malnutrition; G93.40 Encephalopathy, unspecified; J18.9 Pneumonia, unspecified organism; Z99.11 Dependence on respirator [ventilator] status; J84.10 Pulmonary fibrosis, unspecified; J96.10 Chronic respiratory failure, unspecified whether with hypoxia or hypercapnia; I50.32 Chronic diastolic (congestive) heart failure; N39.0 Urinary tract infection, site not specified; Z93.0 Tracheostomy status; K76.0 Fatty (change of) liver, not elsewhere classified; Z87.01 Personal history of pneumonia (recurrent); Z93.1 Gastrostomy status; D64.9 Anemia, unspecified; L53.9 Erythematous condition, unspecified; E78.5 Hyperlipidemia, unspecified; E87.6 Hypokalemia; J40 Bronchitis, not specified as acute or chronic; K57.90 Diverticulosis of intestine, part unspecified, without perforation or abscess without bleeding; B96.89 Other specified bacterial agents as the cause of diseases classified elsewhere; B96.20 Unspecified Escherichia coli [E. coli] as the cause of diseases classified elsewhere; B37.9 Candidiasis, unspecified; B00.1 Herpesviral vesicular dermatitis; R45.1 Restlessness and agitation; R13.10 Dysphagia, unspecified; Y95 Nosocomial condition; R00.0 Tachycardia, unspecified; Z88.8 Allergy status to other drugs, medicaments and biological substances; Z87.440 Personal history of urinary (tract) infections; Z68.21 Body mass index [BMI] 21.0-21.9, adult; Z91.81 History of falling
CPT/HCPCS: 36415; 36430; 36600; 70450; 71010; 80048; 80053; 80202; 81001; 81003; 82270; 82803; 82962; 83605; 83735; 83880; 84443; 84484; 85025; 85610; 85730; 86850; 86900; 86901; 86920; 87040; 87070; 87075; 87081; 87086; 89220; 93005; 94002; 94003; 94640; 94770; 94799; 96372; 96374; 96375; 96376; 97161; J0692; J1200; J1630; J2060; J2185; J2270; J2405; J3370; J7030; J7050; P9016

== ENCOUNTER 2017-01-29 17:57 | Inpatient (IN) | payer MEDICARE, MEDICAID ==
[~2017-01-29] VITALS: Ht 170.2 cm; Wt 61.7 kg
[2017-01-29] VITALS (14 sets, daily range): BP systolic 73–170; BP diastolic 46–107; PULSE 0–145; RESP 17–45
[~2017-01-29 17:57] MED LIST changes: +ACET325S GTB; -AMOX1TAB10 PO; +ASCO500S2 GTB; -AZIT250T6 PO; +BEN25 GTB; -BENA20TA65 PO; +BETA15OI2 TP; +CEFE1PIG IVPB; +CLON-379 GTB; -DEXT15CA PO; +DOCU-144 GTB; +FOLI-49 GTB; +HYDR-906 GTB; -HYDR-906 PO; -IBUP400T22 PO; -IBUP800T25 PO; +IMO2 GTB; +IPRA3AMP INHALATION; +L.AC460C GTB; +LANS30CA GTB; -LEVO500T72 PO; +LORA1TAB GTB; +METO-429 GTB; +OXCA300T41 GTB; +PROT946L GTB; -RTPRO5 IH; +VANCOMYCIN HCL IV*; +[UNRECOGNIZED DRUG - OTHER] GTB
[2017-01-29] MEDS ORDERED: FOLI-49 GTB (19:27)
[2017-01-29] MEDS ORDERED: QUET50TA16 GTB (19:27)
[2017-01-29] MEDS ORDERED: [UNRECOGNIZED DRUG - OTHER] IV* (19:27)
[2017-01-29] MEDS ORDERED: OXCA300T3 GTB (19:27)
[2017-01-29] MEDS ORDERED: IPRA12.93 INHALATION ×2 (19:27)
[2017-01-29] MEDS ORDERED: UDROBAC GTB (19:27)
[2017-01-29] MEDS ORDERED: ACET325S GTB (19:27)
[2017-01-29] MEDS ORDERED: ALBU18HF INHALATION ×2 (19:27)
[2017-01-29] MEDS ORDERED: METO-429 GTB (19:27)
[2017-01-29] MEDS ORDERED: LANS30CA GTB (19:27)
[2017-01-29] MEDS ORDERED: NYST1000 PO (19:27)
[2017-01-29] MEDS ORDERED: MORP2DIS2 IV (19:27)
[2017-01-29] MEDS ORDERED: ASC500 G-TUBE (19:27)
[2017-01-29] MEDS ORDERED: NORM5DIS26 IV* (19:27)
[2017-01-29] MEDS ORDERED: BEN25 GTB (19:27)
[2017-01-29] MEDS ORDERED: BEN50 IV (19:27)
[2017-01-29] MEDS ORDERED: MVI GTB (19:27)
[2017-01-29] MEDS ORDERED: LOPE1LIQ69 GTB (19:27)
[2017-01-29] MEDS ORDERED: UDCOL GTB (19:27)
[2017-01-29] MEDS ORDERED: IPRA3AMP INHALATION (19:27)
[2017-01-29] MEDS ORDERED: L.AC460C PO (19:27)
[2017-01-29] MEDS ORDERED: ONDA4SOL2 IV* (19:27)
[2017-01-29] MEDS ORDERED: ACET-2047 PO (19:27)
[2017-01-29] MEDS ORDERED: HYDR-906 GTB (19:27)
[2017-01-29] MEDS ORDERED: CLON-379 GTB (19:27)
[2017-01-29] MEDS ORDERED: BALSAM PERU/CASTOR OIL 60 GM TUBE TOP PRN (20:00)
[2017-01-29] MEDS ORDERED: HALOPERIDOL 5 MG INJ IM PRN (20:00)
[2017-01-29] MEDS ORDERED: GUAIFENESIN/CODEINE 5ML CUP GTB PRN (20:00)
[2017-01-29] MEDS ORDERED: PENDING SANTYL ORDER FOR WOUND CARE XX PRN (20:00)
[2017-01-29] MEDS ORDERED: DIPHENHYDRAMINE 2.5 MG/ML 5ML CUP GTB PRN (20:00)
[2017-01-29] MEDS: VANCOMYCIN HCL 250 MG/5ML POSYG PEG SCH (20:00)
[2017-01-29] MEDS ORDERED: IPRATROPIUM (HFA) 12.9 GM INHALER INH PRN (20:00)
[2017-01-29] MEDS ORDERED: DIPHENHYDRAMINE 50 MG INJ IV PRN (20:00)
[2017-01-29] MEDS ORDERED: ALBUTEROL 18 GM INHALER INH PRN (20:00)
[2017-01-29] MEDS ORDERED: ACETAMINOPHEN 650MG/20.3ML CUP GTB PRN (20:00)
[2017-01-29] MEDS ORDERED: HYDROCODONE/APAP (5/325) TAB GTB PRN ×2 (20:00→20:30)
--- NOTE | 2017-01-29 20:12 | CONS ---
Date/Time of Note Date/Time of Note DATE: 01/29/17 TIME: 19:40 Assessment/Plan Assessment/Plan Chief Complaint/Hosp Course assessment/impression - possible, recurrent sepsis - underlying pulmonary fibrosis - mental status change after haloperidol and morphine - mental status change after lorazepam - VDRF s/p trach 10/09/2016 - dysphagia s/p PEG placement 10/09/2016 - erythroderma of unclear etiology in 11/2016, resolved - h/o CARLOS - encephalopathy - somewhat improved - s/p recurrent sepsis due to HCAP and UTI - h/o HCAP due to MDR acinetobacter and ESBL E. Coli - colonization with ESBL and CRE - h/o recurrent UTI due to ESBL E. Coli - h/o funguria - h/o thrush - h/o bacteremia 10/28/2016 due to enterococcus faecium. Midline was dc'd - h/0 bacteremia 12/21/2016 due to enterococcus faecalis - s/p severe sepsis due to UTI, prob aspiration after hematemesis and multiple intubation events, and HCAP - s/p acute UGIB of unclear etiology; s/p EGD 10/01/2016 showing no active bleeding site - HLD and fatty liver - h/o alcoholism - chronic diastolic HF - diverticulosis, seen on CT at [facility] - severe protein calorie malnutrition - h/o fall and trauma to R foot recommendations: - ordered: blood cultures x2, lactic acid, urinalysis and urine culture. - start empiric IV vancomycin and meropenem (01/29/2017-) - continue pGT vancomcyin for C diff colitis. No metronidazole to avoid neurotoxicity - enteric contact isolation for C diff colitis management d/w Pt's the critical care time I took to care for this Pt today was from 1930 to 2005 Problems: Consultation Date/Type/Reason Admit Date/Time Jan 29, 2017 at 18:45 Date of Consultation: Jan 29, 2017 Type of Consultation: ID Reason for Consultation sepsis due to C diff colitis Referring Provider: MATTHEW CALDERON MD Hx of Present Illness This is a 71 yo male with underlying pulmonary fibrosis who was admitted at [facility] in 09/2016 with UGIB of unclear etiology. EGD did not show active bleeding site. He developed aspiration pneumonia. He failed weaning trials and received tracheostomy and PEG. He also had UTI due to ESBL+E. coli and bacteremia due to enterococci. His airway is colonized with MDR bacteria such as ESBL+ E. coli. He was eventually transferred to [facility]. There he developed recurrent bacteremia due to enterococci. He received treatment for this and was transferred to [facility]. A few weeks later, Pt was transferred to [facility] because he became agitated after receiving lorazepam. He initially received broad spectrum antibiotics to treat his HCAP; then on 01/25/2017 Pt passed watery stool and was diagnosed with C diff colitis. IV metronidazole and pGT vancomycin were started on 01/26/2017. Broad spectrum antibiotics were discontinued. His diarrhea improved. Pt was transferred to [facility] on 01/27/2017. On 01/29/2017, Pt received morphine and haloperidol, and became very agitated and started hallucinating again. WBC increased at 19.9. As a result, Pt was transferred to ICU for close monitoring. Pt is altered and cannot communicate with the examiner. I evaluated him for continuity of care. Subjective hx not possible: pt non-verbal Past Medical History Medical History: congestive heart failure, GI bleed, hypertension, urinary tract infection, other (pulmonary fibrosis) Past Surgical History Past Surgical Hx: endoscopy, other (trach) Social History Alcohol Use: none Drug Use: none Exam/Review of Systems Vital Signs Vitals Vital Signs Date Time Temp Pulse Resp B/P Pulse Ox O2 Delivery O2 Flow Rate FiO2 01/29/17 18:53 97.9 124 17 141/100 100 Mechanical Ventilator 01/29/17 18:30 100 Exam Constitutional: frail, other (restless) Psych: other (confused and agitated) Head: other (b/l temporal wasting) Eyes: nl lids, nl sclera, No icteric ENMT: nl external ears & nose Neck: other (trach) Respiratory: crackles/rales Cardiovascular: nl pulses, regular rate and rhythm Gastrointestinal: non-tender, other (GT), soft Genitourinary - Male: other (FC) Musculoskeletal: nl extremities to inspection Extremities: No edema Neurological: lethargic Skin: No rash or lesions Medications Medications Current Medications Miscellaneous Information (Pending [facility] Order For Wound Care) This patient moss... PRN PRN XX WOUND CARE; Start 01/29/17 at 20:00 Vancomycin HCl (Vancomycin Oral Syringe) 250 mg Q6 PEG ; Start 01/29/17 at 20:00 ; Status UNV GABBYMADISON M.D. Jan 29, 2017 19:54
[2017-01-29] MEDS ORDERED: PROPOFOL 100 ML ONE (20:28)
[2017-01-29] MEDS ORDERED: VANCOMYCIN HCL 250 MG/5ML POSYG PO SCH (20:30)
[2017-01-29] MEDS ORDERED: VANCOMYCIN IV PER PHARMACY XX SCH (20:30)
[2017-01-29] MEDS ORDERED: LOPERAMIDE 2 MG CAP GTB PRN (20:30)
[2017-01-29] MEDS ORDERED: ONDANSETRON 4 MG INJ IV PRN (20:30)
[2017-01-29] MEDS ORDERED: METOPROLOL 5 MG INJ IV PRN (20:30)
[2017-01-29] MEDS: OXCARBAZEPINE 300 MG TAB GTB SCH (21:00)
[2017-01-29] MEDS ORDERED: VANCOMYCIN 1.25 GM in SOD CHLORIDE 0.9% 250 ML IVPB SCH (21:00)
[2017-01-29] MEDS: METOPROLOL 50 MG TAB GTB SCH (21:00)
[2017-01-29] MEDS: L ACIDOPHIL/B LACTIS/B LONGUM CAPSULE NGT SCH (21:00)
[2017-01-29] MEDS: DOCUSATE SODIUM 10 MG/ML (10ML CUP) GTB SCH (21:00)
[2017-01-29] MEDS: NYSTATIN SUSP 5 ML CUP GTB SCH (21:00)
[2017-01-29] MEDS: BALSAM PERU/CASTOR OIL 60 GM TUBE TOP SCH (21:00)
[2017-01-29] MEDS: IPRATROPIUM (HFA) 12.9 GM INHALER INH SCH (21:42)
[2017-01-29] MEDS: ALBUTEROL 18 GM INHALER INH SCH (21:47)
[2017-01-29] MEDS ORDERED: Metronidazole 500 MG in NS 100 ML IVPB SCH (22:00)
[2017-01-29] MEDS: SOD CHLORIDE 0.9% 1,000 ML IV SCH (22:22)
[2017-01-29] MEDS: PROPOFOL 100 ML IV SCH (22:22)
[2017-01-29] MEDS ORDERED: ALBUTEROL/IPRATROPIUM (NEB) 3 ML AMP HHN SCH (23:00)
--- NOTE | 2017-01-29 23:35 | EN ---
Date/Time of Note Date/Time of Note DATE: 01/29/17 TIME: 23:32 ER Progress Note This 71-year-old admitted for respiratory failure. The patient's blood pressure is getting low I was called to the ICU to place a central line. Patient is needing levo fed, fluids and antibiotics. Central Line Placement by me: Patient consented, sterilely draped, full prep, gown, glove, mask, time out performed. Anesthesia: 1% lidocaine locally Location: Right femoral Device: Multiple lumen Technique: Seldinger technique. Secured with suture. Results: Venous return from all ports with easy saline flush. No complications. [XOXOXO]Guide wire retrieved and disposed of. LOGAN MURPHY DO Jan 29, 2017 23:35
[2017-01-30] VITALS (57 sets, daily range): BP systolic 75–125; BP diastolic 43–113; PULSE 71–114; RESP 17–38
[2017-01-30] MEDS ORDERED: QUETIAPINE 25 MG TAB GTB SCH
[2017-01-30] MEDS: ALBUTEROL 18 GM INHALER INH SCH ×6 (01:07→21:38)
[2017-01-30] MEDS: IPRATROPIUM (HFA) 12.9 GM INHALER INH SCH ×6 (01:07→21:38)
[2017-01-30] MEDS: VANCOMYCIN HCL 250 MG/5ML POSYG PEG SCH ×5 (01:22→23:40)
[2017-01-30] MEDS: MEROPENEM 1 GM/50ML(PMX) 50 ML IVPB SCH ×4 (01:22→22:19)
[2017-01-30] MEDS: PROPOFOL 100 ML IV SCH ×3 (03:58→19:02)
[2017-01-30 05:15] LABS: BASOPHIL # 0.1 10^3/ul (0.0-0.1); EOSINOPHILS # 0.4 10^3/ul (0.0-0.5); EOSINOPHILS % 4.2 % (0.0-7.0); HEMATOCRIT 30.4 % (42.0-52.0); HEMOGLOBIN 9.5 g/dl (14.0-18.0); LYMPHOCYTES # 1.4 10^3/ul (0.8-2.9); LYMPHOCYTES % 14.9 % (15.0-51.0); MEAN CORPUSCULAR HEMOGLOBIN 29.8 pg (29.0-33.0); MEAN CORPUSCULAR HGB CONC 31.3 g/dl (32.0-37.0); MEAN CORPUSCULAR VOLUME 95.3 fl (82.0-101.0); MEAN PLATELET VOLUME 10.2 fl (7.4-10.4); MONOCYTE # 0.8 10^3/ul (0.3-0.9); MONOCYTES % 8.2 % (0.0-11.0); PLATELET COUNT 322 10^3/UL (140-415); RED BLOOD COUNT 3.19 10^6/ul (4.70-6.10); RED CELL DISTRIBUTION WIDTH 16.1 % (11.5-14.5); WHITE BLOOD COUNT 9.5 10^3/ul (4.8-10.8)
[2017-01-30 05:38] LABS: CALCIUM 9.3 mg/dl (8.4-10.2); CREATININE 0.57 mg/dl (0.61-1.24); PHOSPHORUS 4.8 mg/dl (2.5-4.9); POTASSIUM 3.5 mmol/L (3.5-5.1)
[2017-01-30] MEDS: LANSOPRAZOLE 30 MG CAP GTB SCH (05:43)
[2017-01-30] MEDS: QUETIAPINE 25 MG TAB GTB SCH ×5 (05:43→22:14)
[2017-01-30 07:10] LABS: AADO2 Arterial 266.7 mmHg (7.0-24.0); Allen Test ACCEPTAB; Arterial Base Excess 10.7 mmol/L (-3.0-3); Arterial COHb 0.3 % (0.0-3.0); Arterial Fraction of Oxyhgb 98.6 % (93.0-99.0); Arterial HCO3 37.7 mmol/L (22.0-26.0); Arterial MetHb 0.5 % (0.0-1.5); Arterial Total Hemglobin 11.5 g/dl (12.0-18.0); MODE VENT - AC
[2017-01-30 07:12] LABS: Allen Test ACCEPTAB; Arterial Base Excess 6.5 mmol/L (-3.0-3); Arterial COHb 0.3 % (0.0-3.0); Arterial Fraction of Oxyhgb 96.5 % (93.0-99.0); Arterial HCO3 32.5 mmol/L (22.0-26.0); Arterial MetHb 0.3 % (0.0-1.5); Arterial Total Hemglobin 11.2 g/dl (12.0-18.0); MODE VENT - AC
[2017-01-30] MEDS: DOCUSATE SODIUM 10 MG/ML (10ML CUP) GTB SCH ×2 (08:21→22:19)
--- NOTE | 2017-01-30 08:27 | RADRPT ---
PROCEDURE: XR Chest. CLINICAL INDICATION: Cough TECHNIQUE: A single AP view of the chest was obtained. COMPARISON: Chest x-ray dated 01/29/2017 FINDINGS: A tracheostomy tube is in place. There are diffuse reticulonodular interstitial opacities. No pleural effusion or pneumothorax is se en. The cardiomediastinal silhouette is within normal limits for size. The osseous structures demo nstrate senescent changes. IMPRESSION: 1. Chronic-appearing interstitial changes with superimposed interstitial edema versus pneumonia. No significant interval change. 2. Tracheostomy tube in place. RPTAT: HH .Marguerite Shepard MD, MD Date Time Electronically viewed and signed by .Marguerite Shepard MD, MD on 01/30/2017 08:27 .Yamila/
[2017-01-30] MEDS: OXCARBAZEPINE 300 MG TAB GTB SCH ×2 (09:11→22:14)
[2017-01-30] MEDS: NYSTATIN SUSP 5 ML CUP GTB SCH ×2 (09:11→22:13)
[2017-01-30] MEDS: ASCORBIC ACID 500 MG TAB GTB SCH (09:11)
[2017-01-30] MEDS: METOPROLOL 50 MG TAB GTB SCH ×2 (09:12→20:18)
[2017-01-30] MEDS: BALSAM PERU/CASTOR OIL 60 GM TUBE TOP SCH ×2 (09:12→22:19)
[2017-01-30] MEDS: MULTIVITAMINS 30 ML CUP GTB SCH (09:12)
[2017-01-30] MEDS: L ACIDOPHIL/B LACTIS/B LONGUM CAPSULE NGT SCH ×3 (09:12→22:13)
[2017-01-30] MEDS: FOLIC ACID 1 MG TAB GTB SCH (09:12)
--- NOTE | 2017-01-30 10:28 | CONS ---
Date/Time of Note Date/Time of Note DATE: 01/30/17 TIME: 10:24 Assessment/Plan Assessment/Plan Chief Complaint/Hosp Course IMP: 1.Diastolic CHF 2.HTN 3.Resp failure-chronic s/p trach 4.Pulmonary fibrosis 5. PNA 6.UTI 7. Hypotension-transferred back to ICU Recc: -Tele -Continue BB as tolerated but will decrease dose -Continue abx's and bronchodilators -Continue abx's and f/u cx data -Follow volume status closely -Hold clonidine given hypotension Problems: Consultation Date/Type/Reason Admit Date/Time Jan 29, 2017 at 18:45 Initial Consult Date 01/29/17 Type of Consultation: cardiology Reason for Consultation hypotension Referring Provider: MATTHEW CALDERON MD Exam/Review of Systems Vital Signs Vitals Vital Signs Date Time Temp Pulse Resp B/P Pulse Ox O2 Delivery O2 Flow Rate FiO2 01/30/17 08:00 97.6 94 30 96/61 100 Mechanical Ventilator 01/30/17 06:17 40 Intake and Output 01/29/17 01/29/17 01/30/17 15:00 23:00 07:00 Intake Total 33.7 ml 371.42 ml Output Total 145 ml 215 ml Balance -111.3 ml 156.42 ml Exam Review of Systems: CONSTITUTIONAL: No fevers, chills. PULMONARY: trached CARDIOVASCULAR: No obvious chest pain/palpitations GASTROINTESTINAL: No nausea/vomiting. GENITOURINARY: No hematuria/dysuria. MUSCULOSKELETAL: No obvious myagias/arthalgias. PSYCHIATRIC: No documented depression. NEUROLOGIC: lethargic Constitutional: alert Psych: no complaints Neck: other (trached) Respiratory: diminished breath sounds (at bases/B) Cardiovascular: regular rate and rhythm Gastrointestinal: non-tender, soft Musculoskeletal: muscle tone (normal) Extremities: edema (none) Neurological: other (No focal deficits) Results Result Diagram: 01/30/17 0400 01/30/17 0400 Results 24 hrs Laboratory Tests Test 01/29/17 21:06 01/29/17 22:00 01/29/17 23:50 01/30/17 04:00 Bedside Glucose 86 Blood Gas Specimen Source Blood arterial Arterial Blood Date Drawn 01/29/2017 10:07:00 PM Arterial Blood pH (Temp corrected) 7.395 Arterial Blood pCO2 (Temp correct) 62.9 H Arterial Blood pO2 (Temp corrected) 383.4 H Arterial Blood HCO3 37.7 H Arterial Blood Base Excess 10.7 H Arterial Blood Oxygen Saturation 99.4 H Wai Test ACCEPTAB Arterial Blood Gas Puncture Site Right Radial Arterial Blood Carboxyhemoglobin 0.3 Arterial Blood Methemoglobin 0.5 Blood Gas A-a O2 Differential 266.7 H Oxyhemoglobin Percent 98.6 Total Hemoglobin 11.5 L Blood Gas Temperature 37.0 Blood Gas Respiration Rate 20.0 Blood Gas Actual Respiration Rate 25 Blood Gas Modality VENT - AC FiO2 100.0 Blood Gas Tidal Volume 500.0 Blood Gas Low PEEP Setting 5.0 Blood Gas Notified Whom RR Blood Gas Notified Time 01/29/2017 10:20:00 AM Lactic Acid Level 1.1 White Blood Count 9.5 # Red Blood Count 3.19 L Hemoglobin 9.5 L Hematocrit 30.4 L Mean Corpuscular Volume 95.3 Mean Corpuscular Hemoglobin 29.8 Mean Corpuscular Hemoglobin Concent 31.3 L Red Cell Distribution Width 16.1 H Platelet Count 322 # Mean Platelet Volume 10.2 Neutrophils % 71.0 Lymphocytes % 14.9 L Monocytes % 8.2 Eosinophils % 4.2 Basophils % 1.0 Nucleated Red Blood Cells % 0.0 Neutrophils # (Manual) 6.8 Lymphocytes # 1.4 Monocytes # 0.8 Eosinophils # 0.4 Basophils # 0.1 Nucleated Red Blood Cells # 0.0 Sodium Level 141 Potassium Level 3.5 Chloride Level 99 Carbon Dioxide Level 36 H Anion Gap 10 Blood Urea Nitrogen 18 Creatinine 0.57 L Glucose Level 81 # Calcium Level 9.3 Phosphorus Level 4.8 Magnesium Level 2.0 Test 01/30/17 05:00 Blood Gas Specimen Source Blood arterial Arterial Blood Date Drawn 01/30/2017 5:25:47 AM Arterial Blood pH (Temp corrected) 7.402 Arterial Blood pCO2 (Temp correct) 53.4 H Arterial Blood pO2 (Temp corrected) 99.4 Arterial Blood HCO3 32.5 H Arterial Blood Base Excess 6.5 H Arterial Blood Oxygen Saturation 97.1 Wai Test ACCEPTAB Arterial Blood Gas Puncture Site Right Radial Arterial Blood Carboxyhemoglobin 0.3 Arterial Blood Methemoglobin 0.3 Blood Gas A-a O2 Differential 197.0 H Oxyhemoglobin Percent 96.5 Total Hemoglobin 11.2 L Blood Gas Temperature 37.0 Blood Gas Respiration Rate 20.0 Blood Gas Actual Respiration Rate 34 Blood Gas Modality VENT - AC FiO2 50.0 Blood Gas Tidal Volume 500.0 Blood Gas Low PEEP Setting 5.0 Blood Gas Notified Whom MM Blood Gas Notified Time 01/30/2017 5:30:53 AM Medications Medications Current Medications Miscellaneous Information (Pending Santyl Order For Wound Care) This patient moss... PRN PRN XX WOUND CARE; Start 01/29/17 at 20:00 Vancomycin HCl (Vancomycin Oral Syringe) 250 mg Q6 PEG Last administered on 01/30 05:43; Admin Dose 250 MG; Start 01/29/17 at 20:00 Acetaminophen (Tylenol Liquid) 650 mg Q6H PRN GTB MILD PAIN/FEVER >= 101; Start 01/29/17 at 20:00 Ascorbic Acid (Vitamin C) 500 mg DAILY GTB Last administered on 01/30/17 09:11 ; Admin Dose 500 MG; Start 01/30/17 at 09:00 Diphenhydramine HCl (Benadryl) 25 mg Q6H PRN IV FOR AGITATION; Start 01/29/17 at 20:00 Diphenhydramine HCl (Benadryl Liquid Cup) 25 mg Q6H PRN GTB ALLERGIC REACTION; Start 01/29/17 at 20:00 Docusate Sodium (Colace Liquid Cup) 100 mg BID GTB ; Start 01/29/17 at 21:00 Folic Acid (Folic Acid) 1 mg DAILY GTB Last administered on 01/30/17 09:12; Admin Dose 1 MG; Start 01/30/17 at 09:00 Guaifenesin/ Codeine Phosphate (Robitussin Ac Liquid Cup) 5 ml Q4H PRN GTB COUGH; Start 01/29/17 at 20:00 Haloperidol (Haldol) 5 mg Q6H PRN IM AGITATION; Start 01/29/17 at 20:00 Lactobacillus Acidophilus (Florajen3 Capsule) 1 each TID NGT Last administered on 01/30/17 09:12; Admin Dose 1 EACH; Start 01/29/17 at 21:00 Lansoprazole (Prevacid) 30 mg DAILY@06 GTB Last administered on 01/30/17 05:43 ; Admin Dose 30 MG; Start 01/30/17 at 06:00 Loperamide HCl (Imodium Cap) 2 mg Q6H PRN GTB DIARRHEA; Start 01/29/17 at 20:30 Metoprolol Tartrate (Lopressor) 50 mg BID GTB Last administered on 01/30/17 09: 12; Admin Dose 50 MG; Start 01/29/17 at 21:00 Metoprolol Tartrate (Lopressor) 5 mg Q6H PRN IV HR > 120 ( IF SBP > 120); Start 01/29/17 at 20:30 Morphine Sulfate (morphine) 2 mg Q4H PRN IV SEVERE PAIN; Start 01/29/17 at 20:30 Multivitamins 30 ml 30 ml DAILY GTB Last administered on 01/30/17 09:12; Admin Dose 30 ML; Start 01/30/17 at 09:00 Meropenem/Sodium Chloride (Merrem 1 Gm/50 ml (Pmx)) 50 ml @ 100 mls/hr Q8 IVPB Last administered on 01/30/17 05:58; Admin Dose 100 MLS/HR; Start 01/29/17 at 22:00 IV Flush (NS 10 ml) 10 ml PRN PRN IV PRN; Start 01/29/17 at 20:30 Nystatin (Nystatin Susp) 5 ml Q12 GTB Last administered on 01/30/17 09:11; Admin Dose 5 ML; Start 01/29/17 at 21:00 Ondansetron HCl (Zofran Inj) 4 mg Q6H PRN IV NAUSEA AND/OR VOMITING; Start 01/29 at 20:30 Oxcarbazepine (Trileptal) 300 mg BID GTB Last administered on 01/30/17 09:11; Admin Dose 300 MG; Start 01/29/17 at 21:00 Acetaminophen/ Hydrocodone Bitart 1 tab 1 tab Q4H PRN GTB PAIN; Start 01/29/17 at 20:30 Sodium Chloride 1,000 ml @ 30 mls/hr Q24H IV Last administered on 01/29/17 22: 22; Admin Dose 30 MLS/HR; Start 01/29/17 at 20:30 Propofol 100 ml @ 1.851 mls/ hr Q12H IV Last administered on 01/30/17 03:58; Admin Dose 12.955 MLS/HR; Start 01/29/17 at 20:30 Vancomycin HCl (Vancocin) 250 ml @ 125 mls/hr Q24H IVPB ; Start 01/30/17 at 21: 00 Quetiapine Fumarate (Seroquel) 50 mg Q6 GTB Last administered on 01/30/17t 05:43 ; Admin Dose 50 MG; Start 01/30/17 at 00:00 Clonidine (Catapres) 0.1 mg Q6 GTB ; Start 01/30/17 at 00:00 CLOVIS LEON Jan 30, 2017 10:28
--- NOTE | 2017-01-30 11:50 | CONS ---
DATE OF ADMISSION: 01/29/2017 DATE OF CONSULTATION: 01/30/2017 REASON FOR CONSULTATION: Ventilator management. Thank you, Dr. Austin, for this consultation. HISTORY OF PRESENT ILLNESS: This is a 71-year-old gentleman with multiple medical problems, transferred from [facility] yesterday for increasing shortness of breath, cuff leak and hypertension. A few further details are available. Patient is nonverbal. PAST MEDICAL HISTORY: Pulmonary fibrosis, vent-dependent respiratory failure, history of GI bleed, recurrent sepsis, polymicrobial sepsis from ESBL. MEDICATIONS: Per chart. ALLERGIES: NONE. SOCIAL HISTORY: Nonsmoker. No alcohol. No history of drug use. REVIEW OF SYSTEMS: Twelve point review of systems currently unable to perform. PHYSICAL EXAMINATION: GENERAL APPEARANCE: On examination, elderly-appearing gentleman, on mechanical ventilation, mostly somnolent. VITAL SIGNS: Currently afebrile. Pulse is 100, blood pressure 96/61, O2 sat 96 percent, FiO2 of 40 percent. NECK: Trach site appears clean, intact. There is a slight leak. CARDIAC: S1, S2. No added sounds or murmurs. CHEST: Coarse rhonchi bilaterally. ABDOMEN: Soft, nontender. No guarding or rebound. EXTREMITIES: No cyanosis, clubbing or edema. NEUROLOGIC: Generalized weakness. LABORATORY: White count 9.5, hemoglobin 9.5, platelets 322. BUN 18, creatinine 0.57. ABG: pH 7.4, pCO2 of 53, PO2 of 99. Chest x-ray was reviewed, shows ongoing interstitial fibrosis. IMPRESSION: 1. Chronic respiratory failure on mechanical ventilation with underlying pulmonary fibrosis. 2. Recurrent polymicrobial sepsis. 3. Dysphagia. 4. Possible trach site leak. PLAN: The patient will require: 1. ENT evaluation for trach change. 2. Continue mechanical ventilation. 3. Continue broad-spectrum antibiotics. 4. Consider addressing code status as overall prognosis is very poor. Dictated By: Manolo Souza MD /indio/agnes /Document#: [id number]
--- NOTE | 2017-01-30 13:27 | CONS ---
Date/Time of Note Date/Time of Note DATE: 01/30/17 TIME: 13:22 Assessment/Plan Assessment/Plan Chief Complaint/Hosp Course assessment/impression - possible, recurrent sepsis - underlying pulmonary fibrosis - mental status change after haloperidol and morphine - mental status change after lorazepam - VDRF s/p trach 10/09/2016 - dysphagia s/p PEG placement 10/09/2016 - erythroderma of unclear etiology in 11/2016, resolved - h/o CARLOS - encephalopathy - somewhat improved - s/p recurrent sepsis due to HCAP and UTI - h/o HCAP due to MDR acinetobacter and ESBL E. Coli - colonization with ESBL and CRE - h/o recurrent UTI due to ESBL E. Coli - h/o funguria - h/o thrush - h/o bacteremia 10/28/2016 due to enterococcus faecium. Midline was dc'd - h/0 bacteremia 12/21/2016 due to enterococcus faecalis - s/p severe sepsis due to UTI, prob aspiration after hematemesis and multiple intubation events, and HCAP - s/p acute UGIB of unclear etiology; s/p EGD 10/01/2016 showing no active bleeding site - HLD and fatty liver - h/o alcoholism - chronic diastolic HF - diverticulosis, seen on CT at [facility] - severe protein calorie malnutrition - h/o fall and trauma to R foot recommendations: - I ordered urinalysis and urine culture on 01/29/2017, but RN from the evening shift 01/29/2017 to 01/30/2017 did not collect them; I reported this to Pt's RN for today and instructed him to collect them AYE. I also instructed Pt's RT to collect resp culture - pending results: blood cultures x2 - continue empiric IV vancomycin and meropenem (01/29/2017-) - continue pGT vancomcyin for C diff colitis. No metronidazole to avoid neurotoxicity - enteric contact isolation for C diff colitis management d/w Pt's RN the critical care time I took to care for this Pt today was from 1250 to 1325 Problems: Consultation Date/Type/Reason Admit Date/Time Jan 29, 2017 at 18:45 Initial Consult Date 01/29/17 Type of Consultation: ID Reason for Consultation sepsis Referring Provider: MATTHEW CALDERON MD 24 HR Interval Summary Subjective hx not possible: pt non-verbal Exam/Review of Systems Vital Signs Vitals Vital Signs Date Time Temp Pulse Resp B/P Pulse Ox O2 Delivery O2 Flow Rate FiO2 01/30/17 12:00 75 01/30/17 11:49 31 98 40 01/30/17 11:00 90/53 Mechanical Ventilator 01/30/17 08:00 97.6 Intake and Output 01/29/17 01/29/17 01/30/17 15:00 23:00 07:00 Intake Total 33.7 ml 371.42 ml Output Total 145 ml 215 ml Balance -111.3 ml 156.42 ml Exam Constitutional: frail, non-verbal Psych: no complaints, other (restless but not agitated), No anxiety Head: normocephalic Eyes: nl conjunctiva, nl lids ENMT: nl external ears & nose Neck: other (trach) Respiratory: crackles/rales Cardiovascular: nl pulses, regular rate and rhythm Gastrointestinal: non-tender, other (GT), soft Genitourinary - Male: other (FC) Musculoskeletal: nl extremities to inspection Extremities: No edema Neurological: lethargic, other (restless) Skin: nl turgor, No rash or lesions Results Result Diagram: 01/30/17 0400 01/30/17 0400 Results 24 hrs Laboratory Tests Test 01/29/17 21:06 01/29/17 22:00 01/29/17 23:50 01/30/17 04:00 Bedside Glucose 86 Blood Gas Specimen Source Blood arterial Arterial Blood Date Drawn 01/29/2017 10:07:00 PM Arterial Blood pH (Temp corrected) 7.395 Arterial Blood pCO2 (Temp correct) 62.9 H Arterial Blood pO2 (Temp corrected) 383.4 H Arterial Blood HCO3 37.7 H Arterial Blood Base Excess 10.7 H Arterial Blood Oxygen Saturation 99.4 H Wai Test ACCEPTAB Arterial Blood Gas Puncture Site Right Radial Arterial Blood Carboxyhemoglobin 0.3 Arterial Blood Methemoglobin 0.5 Blood Gas A-a O2 Differential 266.7 H Oxyhemoglobin Percent 98.6 Total Hemoglobin 11.5 L Blood Gas Temperature 37.0 Blood Gas Respiration Rate 20.0 Blood Gas Actual Respiration Rate 25 Blood Gas Modality VENT - AC FiO2 100.0 Blood Gas Tidal Volume 500.0 Blood Gas Low PEEP Setting 5.0 Blood Gas Notified Whom RR Blood Gas Notified Time 01/29/2017 10:20:00 AM Lactic Acid Level 1.1 White Blood Count 9.5 # Red Blood Count 3.19 L Hemoglobin 9.5 L Hematocrit 30.4 L Mean Corpuscular Volume 95.3 Mean Corpuscular Hemoglobin 29.8 Mean Corpuscular Hemoglobin Concent 31.3 L Red Cell Distribution Width 16.1 H Platelet Count 322 # Mean Platelet Volume 10.2 Neutrophils % 71.0 Lymphocytes % 14.9 L Monocytes % 8.2 Eosinophils % 4.2 Basophils % 1.0 Nucleated Red Blood Cells % 0.0 Neutrophils # (Manual) 6.8 Lymphocytes # 1.4 Monocytes # 0.8 Eosinophils # 0.4 Basophils # 0.1 Nucleated Red Blood Cells # 0.0 Sodium Level 141 Potassium Level 3.5 Chloride Level 99 Carbon Dioxide Level 36 H Anion Gap 10 Blood Urea Nitrogen 18 Creatinine 0.57 L Glucose Level 81 # Calcium Level 9.3 Phosphorus Level 4.8 Magnesium Level 2.0 Test 01/30/17 05:00 Blood Gas Specimen Source Blood arterial Arterial Blood Date Drawn 01/30/2017 5:25:47 AM Arterial Blood pH (Temp corrected) 7.402 Arterial Blood pCO2 (Temp correct) 53.4 H Arterial Blood pO2 (Temp corrected) 99.4 Arterial Blood HCO3 32.5 H Arterial Blood Base Excess 6.5 H Arterial Blood Oxygen Saturation 97.1 Wai Test ACCEPTAB Arterial Blood Gas Puncture Site Right Radial Arterial Blood Carboxyhemoglobin 0.3 Arterial Blood Methemoglobin 0.3 Blood Gas A-a O2 Differential 197.0 H Oxyhemoglobin Percent 96.5 Total Hemoglobin 11.2 L Blood Gas Temperature 37.0 Blood Gas Respiration Rate 20.0 Blood Gas Actual Respiration Rate 34 Blood Gas Modality VENT - AC FiO2 50.0 Blood Gas Tidal Volume 500.0 Blood Gas Low PEEP Setting 5.0 Blood Gas Notified Whom MM Blood Gas Notified Time 01/30/2017 5:30:53 AM Medications Medications Current Medications Miscellaneous Information (Pending Santyl Order For Wound Care) This patient moss... PRN PRN XX WOUND CARE; Start 01/29/17 at 20:00 Vancomycin HCl (Vancomycin Oral Syringe) 250 mg Q6 PEG Last administered on 01/30t 12:42; Admin Dose 250 MG; Start 01/29/17 at 20:00 Acetaminophen (Tylenol Liquid) 650 mg Q6H PRN GTB MILD PAIN/FEVER >= 101; Start 01/29/17 at 20:00 Ascorbic Acid (Vitamin C) 500 mg DAILY GTB Last administered on 01/30/17 09:11 ; Admin Dose 500 MG; Start 01/30/17 at 09:00 Diphenhydramine HCl (Benadryl) 25 mg Q6H PRN IV FOR AGITATION; Start 01/29/17 at 20:00 Diphenhydramine HCl (Benadryl Liquid Cup) 25 mg Q6H PRN GTB ALLERGIC REACTION; Start 01/29/17 at 20:00 Docusate Sodium (Colace Liquid Cup) 100 mg BID GTB ; Start 01/29/17 at 21:00 Folic Acid (Folic Acid) 1 mg DAILY GTB Last administered on 01/30/17 09:12; Admin Dose 1 MG; Start 01/30/17 at 09:00 Guaifenesin/ Codeine Phosphate (Robitussin Ac Liquid Cup) 5 ml Q4H PRN GTB COUGH; Start 01/29/17 at 20:00 Haloperidol (Haldol) 5 mg Q6H PRN IM AGITATION; Start 01/29/17 at 20:00 Lactobacillus Acidophilus (Florajen3 Capsule) 1 each TID NGT Last administered on 01/30/17 09:12; Admin Dose 1 EACH; Start 01/29/17 at 21:00 Lansoprazole (Prevacid) 30 mg DAILY@06 GTB Last administered on 01/30/17 05:43 ; Admin Dose 30 MG; Start 01/30/17 at 06:00 Loperamide HCl (Imodium Cap) 2 mg Q6H PRN GTB DIARRHEA; Start 01/29/17 at 20:30 Metoprolol Tartrate (Lopressor) 5 mg Q6H PRN IV HR > 120 ( IF SBP > 120); Start 01/29/17 at 20:30 Morphine Sulfate (morphine) 2 mg Q4H PRN IV SEVERE PAIN; Start 01/29/17 at 20:30 Multivitamins 30 ml 30 ml DAILY GTB Last administered on 01/30/17 09:12; Admin Dose 30 ML; Start 01/30/17 at 09:00 Meropenem/Sodium Chloride (Merrem 1 Gm/50 ml (Pmx)) 50 ml @ 100 mls/hr Q8 IVPB Last administered on 01/30/17 05:58; Admin Dose 100 MLS/HR; Start 01/29/17 at 22:00 IV Flush (NS 10 ml) 10 ml PRN PRN IV PRN; Start 01/29/17 at 20:30 Nystatin (Nystatin Susp) 5 ml Q12 GTB Last administered on 01/30/17 09:11; Admin Dose 5 ML; Start 01/29/17 at 21:00 Ondansetron HCl (Zofran Inj) 4 mg Q6H PRN IV NAUSEA AND/OR VOMITING; Start 01/29 at 20:30 Oxcarbazepine (Trileptal) 300 mg BID GTB Last administered on 01/30/17 09:11; Admin Dose 300 MG; Start 01/29/17 at 21:00 Acetaminophen/ Hydrocodone Bitart 1 tab 1 tab Q4H PRN GTB PAIN Last administered on 01/30/17 10:31; Admin Dose 1 TAB; Start 01/29/17 at 20:30 Sodium Chloride 1,000 ml @ 30 mls/hr Q24H IV Last administered on 01/29/17 22: 22; Admin Dose 30 MLS/HR; Start 01/29/17 at 20:30 Propofol 100 ml @ 1.851 mls/ hr Q12H IV Last administered on 01/30/17 11:06; Admin Dose 12.955 MLS/HR; Start 01/29/17 at 20:30 Vancomycin HCl (Vancocin) 250 ml @ 125 mls/hr Q24H IVPB ; Start 01/30/17 at 21: 00 Quetiapine Fumarate (Seroquel) 50 mg Q6 GTB Last administered on 01/30/17 12:45 ; Admin Dose 50 MG; Start 01/30/17 at 00:00 Clonidine (Catapres) 0.1 mg Q6 GTB ; Start 01/30/17 at 00:00; Status Future Hold Metoprolol Tartrate (Lopressor) 25 mg BID GTB ; Start 01/30/17 at 21:00 MADISON PIERRE M.D. Jan 30, 2017 13:27
[2017-01-30 14:41] LABS: ADD UMIC YES; UR ASCORBIC ACID 40 mg/dL (NEGATIVE); UR BACTERIA FEW /HPF (NONE SEEN); UR BILIRUBIN (Dip) NEGATIVE (NEGATIVE); UR BLOOD (Dip) NEGATIVE (NEGATIVE); UR CLARITY SLIGHTLY CLOUDY (CLEAR); UR COLOR AMBER (YELLOW); UR GLUCOSE (Dip) NEGATIVE (NEGATIVE); UR KETONES (Dip) TRACE mg/dL (NEGATIVE); UR LEUKOCYTE ESTERASE (Dip) TRACE Leu/ul (NEGATIVE); UR MUCUS FEW /HPF (NONE SEEN); UR NITRITE (Dip) NEGATIVE (NEGATIVE); UR RBC 3 /HPF (0-5); UR TOTAL PROTEIN (Dip) NEGATIVE (NEGATIVE); UR UROBILINOGEN (Dip) NEGATIVE (NEGATIVE)
[2017-01-30] MEDS ORDERED: POTASSIUM CHLORIDE 20 MEQ POWDER FOR ORAL SOLN GTB ONE (15:30)
[2017-01-30] MEDS ORDERED: ONDANSETRON 4 MG INJ IV PRN (17:00)
--- NOTE | 2017-01-30 17:00 | HP ---
Date/Time of Note Date/Time of Note DATE: 01/30/17 TIME: 15:42 Assessment/Plan VTE Prophylaxis VTE Prophylaxis Intervention: other Lines/Catheters IV [facility]ter Type (from [facility] Central Line Urinary Cath still in place: Yes Assessment/Plan Assessment/Plan - Chronic respiratory failure on mechanical ventilation with underlying pulmonary fibrosis-VDRF s/p trach 10/09/2016 - per Pulmonary - Continue mechanical ventilation. - Recurrent polymicrobial sepsis- VRE stool/ESBL urine - per ID -Continue broad-spectrum antibiotics. - contact isolation - Anemia- drop in H/H - pREVACID - will consult GI- Dr Connelly notified - continue to monitor H&H. - stool OB - Dysphagia. - s/p PEG placement 10/09/2016 - Possible trach site leak. - Per ENT- pending evaluation - Eephalopathy - Multi Drug Allergy - HLD and fatty liver - mental status change after haloperidol and morphine, lorazepam - Hx erythroderma of unclear etiology in 11/2016, resolved - h/o CARLOS - h/o alcoholism - chronic diastolic HF - diverticulosis, seen on CT at [facility] - severe protein calorie malnutrition - h/o fall and trauma to R foot PLAN; -Admit to ICU -Aspiration precautions Total critical time spent to Dw Dr Austin/staff- 45 mins HPI/ROS Admit Date/Time Admit Date/Time Jan 29, 2017 at 18:45 Hx of Present Illness The patient is a 71-year-old male, a resident at half-way facility, with history of pulmonary fibrosis, ventilator dependent respiratory failure with tracheostomy, dysphagia with PEG, history of pneumonia, chronic diastolic congestive heart failure, hyperlipidemia, history of fatty liver, history of alcoholism. Patient transferred from [facility] last night for increasing shortness of breath, cuff leak and hypertension. Patient is nonverbal.The patient's lung sounds on auscultation showed coarse rhonchi. No nausea or vomiting was reported, and the patient is admitted to ICU for further evaluation and management to a telemetry floor. Per staff- Tarch tube was changed by LYLY CHÁVEZ # 8- no leakage reported. ENT evaluation pending. ALLERGIES: THE PATIENT IS ALLERGIC TO MICONAZOLE, CASPOFUNGIN. LORAZEPAM REVIEW OF SYSTEMS: A 12-point review of systems is negative unless otherwise mentioned in the HPI. ROS PAST MEDICAL HISTORY: Per HPI. PAST SURGICAL HISTORY: Status post tracheostomy and status post G-tube placement. FAMILY HISTORY: Noncontributory. SOCIAL HISTORY: The patient is currently a resident at a half-way facility. The patient has a remote history of alcoholism. No history of tobacco use. No history of illicit drug use. 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 Subjective hx not possible: pt non-verbal Psychological: other, No anxiety PMH/Family/Social Past Medical History - Pulmonary fibrosis - vent-dependent respiratory failure - history of GI bleed - recurrent sepsis, - polymicrobial sepsis from ESBL. - PEG placement Medical History: congestive heart failure, GI bleed, hypertension, urinary tract infection, other (pulmonary fibrosis) Past Surgical History Past Surgical Hx: endoscopy, other (trach) Social History Alcohol Use: none Drug Use: none Exam/Review of Systems Vital Signs Vitals Vital Signs Date Time Temp Pulse Resp B/P Pulse Ox O2 Delivery O2 Flow Rate FiO2 01/30/17 14:45 70 23 98 40 01/30/17 14:30 96/45 Mechanical Ventilator 01/30/17 12:00 97.3 Intake and Output 01/29/17 01/29/17 01/30/17 15:00 23:00 07:00 Intake Total 33.7 ml 371.42 ml Output Total 145 ml 215 ml Balance -111.3 ml 156.42 ml Exam Constitutional: frail Gastrointestinal: non-tender, other (gt INTACT), soft Musculoskeletal: muscle weakness Extremities: normal pulses Neurological: unresponsive Labs Result Diagram: 01/30/17 0400 01/30/17 0400 Medications Medications Current Medications Miscellaneous Information (Pending [facility] Order For Wound Care) This patient moss... PRN PRN XX WOUND CARE; Start 01/29/17 at 20:00 Vancomycin HCl (Vancomycin Oral Syringe) 250 mg Q6 PEG Last administered on 01/30 12:42; Admin Dose 250 MG; Start 01/29/17 at 20:00 Acetaminophen (Tylenol Liquid) 650 mg Q6H PRN GTB MILD PAIN/FEVER >= 101; Start 01/29/17 at 20:00 Ascorbic Acid (Vitamin C) 500 mg DAILY GTB Last administered on 01/30/17 09:11 ; Admin Dose 500 MG; Start 01/30/17 at 09:00 Diphenhydramine HCl (Benadryl) 25 mg Q6H PRN IV FOR AGITATION; Start 01/29/17 at 20:00 Diphenhydramine HCl (Benadryl Liquid Cup) 25 mg Q6H PRN GTB ALLERGIC REACTION; Start 01/29/17 at 20:00 Docusate Sodium (Colace Liquid Cup) 100 mg BID GTB ; Start 01/29/17 at 21:00 Folic Acid (Folic Acid) 1 mg DAILY GTB Last administered on 01/30/17 09:12; Admin Dose 1 MG; Start 01/30/17 at 09:00 Guaifenesin/ Codeine Phosphate (Robitussin Ac Liquid Cup) 5 ml Q4H PRN GTB COUGH; Start 01/29/17 at 20:00 Haloperidol (Haldol) 5 mg Q6H PRN IM AGITATION; Start 01/29/17 at 20:00 Lactobacillus Acidophilus (Florajen3 Capsule) 1 each TID NGT Last administered on 01/30/17 13:58; Admin Dose 1 EACH; Start 01/29/17 at 21:00 Lansoprazole (Prevacid) 30 mg DAILY@06 GTB Last administered on 01/30/17 05:43 ; Admin Dose 30 MG; Start 01/30/17 at 06:00 Loperamide HCl (Imodium Cap) 2 mg Q6H PRN GTB DIARRHEA; Start 01/29/17 at 20:30 Metoprolol Tartrate (Lopressor) 5 mg Q6H PRN IV HR > 120 ( IF SBP > 120); Start 01/29/17 at 20:30 Morphine Sulfate (morphine) 2 mg Q4H PRN IV SEVERE PAIN; Start 01/29/17 at 20:30 Multivitamins 30 ml 30 ml DAILY GTB Last administered on 01/30/17 09:12; Admin Dose 30 ML; Start 01/30/17 at 09:00 Meropenem/Sodium Chloride (Merrem 1 Gm/50 ml (Pmx)) 50 ml @ 100 mls/hr Q8 IVPB Last administered on 01/30/17 13:58; Admin Dose 100 MLS/HR; Start 01/29/17 at 22:00 IV Flush (NS 10 ml) 10 ml PRN PRN IV PRN; Start 01/29/17 at 20:30 Nystatin (Nystatin Susp) 5 ml Q12 GTB Last administered on 01/30/17 09:11; Admin Dose 5 ML; Start 01/29/17 at 21:00 Ondansetron HCl (Zofran Inj) 4 mg Q6H PRN IV NAUSEA AND/OR VOMITING; Start 01/29 at 20:30 Oxcarbazepine (Trileptal) 300 mg BID GTB Last administered on 01/30/17 09:11; Admin Dose 300 MG; Start 01/29/17 at 21:00 Acetaminophen/ Hydrocodone Bitart 1 tab 1 tab Q4H PRN GTB PAIN Last administered on 01/30/17 10:31; Admin Dose 1 TAB; Start 01/29/17 at 20:30 Sodium Chloride 1,000 ml @ 30 mls/hr Q24H IV Last administered on 01/29/17 22: 22; Admin Dose 30 MLS/HR; Start 01/29/17 at 20:30 Propofol 100 ml @ 1.851 mls/ hr Q12H IV Last administered on 01/30/17 11:06; Admin Dose 12.955 MLS/HR; Start 01/29/17 at 20:30 Vancomycin HCl (Vancocin) 250 ml @ 125 mls/hr Q24H IVPB ; Start 01/30/17 at 21: 00 Quetiapine Fumarate (Seroquel) 50 mg Q6 GTB Last administered on 01/30/17 12:45 ; Admin Dose 50 MG; Start 01/30/17 at 00:00 Clonidine (Catapres) 0.1 mg Q6 GTB ; Start 01/30/17 at 00:00; Status Future Hold Metoprolol Tartrate (Lopressor) 25 mg BID GTB ; Start 01/30/17 at 21:00 CHARITY DUKE Jan 30, 2017 15:57
[2017-01-30] MEDS: SOD CHLORIDE 0.9% 1,000 ML IV SCH (20:30)
[2017-01-30] MEDS: VANCOMYCIN 1 GM in NS 250 ML IVPB SCH (22:13)
[2017-01-31] VITALS (67 sets, daily range): BP systolic 94–155; BP diastolic 56–82; PULSE 79–113; RESP 16–45
[2017-01-31] MEDS: IPRATROPIUM (HFA) 12.9 GM INHALER INH SCH ×6 (01:23→21:04)
[2017-01-31] MEDS: ALBUTEROL 18 GM INHALER INH SCH ×6 (01:23→21:03)
[2017-01-31] MEDS: PROPOFOL 100 ML IV SCH ×2 (03:35→11:34)
[2017-01-31 05:47] LABS: BASOPHIL # 0.1 10^3/ul (0.0-0.1); BASOPHILS % 0.9 % (0.0-2.0); EOSINOPHILS # 0.4 10^3/ul (0.0-0.5); EOSINOPHILS % 4.7 % (0.0-7.0); HEMATOCRIT 29.5 % (42.0-52.0); HEMOGLOBIN 9.3 g/dl (14.0-18.0); LYMPHOCYTES # 0.9 10^3/ul (0.8-2.9); LYMPHOCYTES % 10.1 % (15.0-51.0); MEAN CORPUSCULAR HGB CONC 31.5 g/dl (32.0-37.0); MEAN CORPUSCULAR VOLUME 95.2 fl (82.0-101.0); MEAN PLATELET VOLUME 10.3 fl (7.4-10.4); MONOCYTE # 0.6 10^3/ul (0.3-0.9); NEUTROPHILS % 76.9 % (39.0-77.0); PLATELET COUNT 273 10^3/UL (140-415); RED CELL DISTRIBUTION WIDTH 16.5 % (11.5-14.5)
[2017-01-31] MEDS ORDERED: PANTOPRAZOLE 40 MG INJ IV SCH (06:00)
[2017-01-31] MEDS: VANCOMYCIN HCL 250 MG/5ML POSYG PEG SCH ×3 (06:01→17:46)
[2017-01-31] MEDS: LANSOPRAZOLE 30 MG CAP GTB SCH (06:01)
[2017-01-31] MEDS: QUETIAPINE 25 MG TAB GTB SCH ×3 (06:01→17:46)
[2017-01-31] MEDS: MEROPENEM 1 GM/50ML(PMX) 50 ML IVPB SCH ×3 (06:01→21:52)
[2017-01-31 06:11] LABS: ALBUMIN 2.5 g/dl (3.3-4.9); ALBUMIN/GLOBULIN RATIO 0.64; CALCIUM 8.8 mg/dl (8.4-10.2); CREATININE 0.51 mg/dl (0.61-1.24); POTASSIUM 3.8 mmol/L (3.5-5.1); TOTAL PROTEIN 6.4 g/dl (6.1-8.1)
[2017-01-31] MEDS: METOPROLOL 50 MG TAB GTB SCH (09:00)
[2017-01-31] MEDS: DOCUSATE SODIUM 10 MG/ML (10ML CUP) GTB SCH ×2 (09:00→21:46)
[2017-01-31] MEDS: MULTIVITAMINS 30 ML CUP GTB SCH (09:13)
[2017-01-31] MEDS: FOLIC ACID 1 MG TAB GTB SCH (09:13)
[2017-01-31] MEDS: NYSTATIN SUSP 5 ML CUP GTB SCH ×2 (09:13→21:46)
[2017-01-31] MEDS: OXCARBAZEPINE 300 MG TAB GTB SCH ×2 (09:13→21:47)
[2017-01-31] MEDS: L ACIDOPHIL/B LACTIS/B LONGUM CAPSULE NGT SCH ×3 (09:13→21:50)
[2017-01-31] MEDS: ASCORBIC ACID 500 MG TAB GTB SCH (09:13)
[2017-01-31] MEDS: BALSAM PERU/CASTOR OIL 60 GM TUBE TOP SCH ×2 (09:43→21:48)
[2017-01-31] MEDS: morphine 2 MG INJ IV PRN ×2 (10:31→16:33)
--- NOTE | 2017-01-31 10:49 | CONS ---
Date/Time of Note Date/Time of Note DATE: 01/31/17 TIME: 10:47 Consult Date/Type/Reason Admit Date/Time Jan 29, 2017 at 18:45 Initial Consult Date 01/29/17 Type of Consultation: Pulm Ordering Provider: MATTHEW CALDERON MD Subjective Remains comfortable, increased tachypnea off sedation s/p trach change Objective Vital Signs Date Time Temp Pulse Resp B/P Pulse Ox O2 Delivery O2 Flow Rate FiO2 01/31/17 10:30 107 36 114/72 96 01/31/17 10:00 Mechanical Ventilator 01/31/17 08:00 40 01/31/17 08:00 98.8 Intake and Output 01/30/17 01/30/17 01/31/17 15:00 23:00 07:00 Intake Total 443.640 ml 447.014 ml 872.955 ml Output Total 365 ml 250 ml 275 ml Balance 78.640 ml 197.014 ml 597.955 ml Exam PHYSICAL EXAMINATION: GENERAL APPEARANCE: On examination, elderly-appearing gentleman, on mechanical ventilation, more alert this morning, VITAL SIGNS: NECK: Trach site appears clean, intact. There is a slight leak. CARDIAC: S1, S2. No added sounds or murmurs. CHEST: Coarse rhonchi bilaterally. ABDOMEN: Soft, nontender. No guarding or rebound. EXTREMITIES: No cyanosis, clubbing or edema. NEUROLOGIC: Generalized weakness. Results/Medications Result Diagram: 01/31/17 0450 01/31/17 0450 Results 24 hrs Laboratory Tests Test 01/30/17 13:30 01/31/17 04:50 Urine Color SHERIN Urine Clarity SLIGHTLY CLOUDY A Urine pH 5.0 Urine Specific Cody 1.020 Urine Ketones TRACE A Urine Nitrite NEGATIVE Urine Bilirubin NEGATIVE Urine Urobilinogen NEGATIVE Urine Leukocyte Esterase TRACE A Urine Microscopic RBC 3 Urine Microscopic WBC 6 H Urine Bacteria FEW A Urine Granular Casts FEW A Urine Mucus FEW A Urine Hemoglobin NEGATIVE Urine Glucose NEGATIVE Urine Total Protein NEGATIVE White Blood Count 9.0 Red Blood Count 3.10 L Hemoglobin 9.3 L Hematocrit 29.5 L Mean Corpuscular Volume 95.2 Mean Corpuscular Hemoglobin 30.0 Mean Corpuscular Hemoglobin Concent 31.5 L Red Cell Distribution Width 16.5 H Platelet Count 273 Mean Platelet Volume 10.3 Neutrophils % 76.9 Lymphocytes % 10.1 L Monocytes % 7.0 Eosinophils % 4.7 Basophils % 0.9 Nucleated Red Blood Cells % 0.0 Neutrophils # (Manual) 6.9 Lymphocytes # 0.9 Monocytes # 0.6 Eosinophils # 0.4 Basophils # 0.1 Nucleated Red Blood Cells # 0.0 Sodium Level 140 Potassium Level 3.8 Chloride Level 103 Carbon Dioxide Level 34 H Anion Gap 7 L Blood Urea Nitrogen 14 Creatinine 0.51 L Glucose Level 103 Calcium Level 8.8 Total Bilirubin 0.0 L Direct Bilirubin 0.00 Indirect Bilirubin 0.0 Aspartate Amino Transf (AST/SGOT) 27 Alanine Aminotransferase (ALT/SGPT) 32 Alkaline Phosphatase 114 Total Protein 6.4 # Albumin 2.5 L Globulin 3.90 H Albumin/Globulin Ratio 0.64 Medications Current Medications Miscellaneous Information (Pending Santyl Order For Wound Care) This patient moss... PRN PRN XX WOUND CARE; Start 01/29/17 at 20:00 Vancomycin HCl (Vancomycin Oral Syringe) 250 mg Q6 PEG Last administered on 01/31 06:01; Admin Dose 250 MG; Start 01/29/17 at 20:00 Acetaminophen (Tylenol Liquid) 650 mg Q6H PRN GTB MILD PAIN/FEVER >= 101; Start 01/29/17 at 20:00 Ascorbic Acid (Vitamin C) 500 mg DAILY GTB Last administered on 01/31/17 09:13 ; Admin Dose 500 MG; Start 01/30/17 at 09:00 Diphenhydramine HCl (Benadryl) 25 mg Q6H PRN IV FOR AGITATION; Start 01/29/17 at 20:00 Diphenhydramine HCl (Benadryl Liquid Cup) 25 mg Q6H PRN GTB ALLERGIC REACTION; Start 01/29/17 at 20:00 Docusate Sodium (Colace Liquid Cup) 100 mg BID GTB Last administered on 22:19; Admin Dose 100 MG; Start 01/29/17 at 21:00 Folic Acid (Folic Acid) 1 mg DAILY GTB Last administered on 01/31/17 09:13; Admin Dose 1 MG; Start 01/30/17 at 09:00 Guaifenesin/ Codeine Phosphate (Robitussin Ac Liquid Cup) 5 ml Q4H PRN GTB COUGH; Start 01/29/17 at 20:00 Haloperidol (Haldol) 5 mg Q6H PRN IM AGITATION; Start 01/29/17 at 20:00 Lactobacillus Acidophilus (Florajen3 Capsule) 1 each TID NGT Last administered on 01/31/17 09:13; Admin Dose 1 EACH; Start 01/29/17 at 21:00 Lansoprazole (Prevacid) 30 mg DAILY@06 GTB Last administered on 01/31/17 06:01 ; Admin Dose 30 MG; Start 01/30/17 at 06:00 Loperamide HCl (Imodium Cap) 2 mg Q6H PRN GTB DIARRHEA; Start 01/29/17 at 20:30 Metoprolol Tartrate (Lopressor) 5 mg Q6H PRN IV HR > 120 ( IF SBP > 120); Start 01/29/17 at 20:30 Morphine Sulfate (morphine) 2 mg Q4H PRN IV SEVERE PAIN Last administered on 10:31; Admin Dose 2 MG; Start 01/29/17 at 20:30 Multivitamins 30 ml 30 ml DAILY GTB Last administered on 01/31/17 09:13; Admin Dose 30 ML; Start 01/30/17 at 09:00 Meropenem/Sodium Chloride (Merrem 1 Gm/50 ml (Pmx)) 50 ml @ 100 mls/hr Q8 IVPB Last administered on 01/31/17 06:01; Admin Dose 100 MLS/HR; Start 01/29/17 at 22:00 IV Flush (NS 10 ml) 10 ml PRN PRN IV PRN; Start 01/29/17 at 20:30 Nystatin (Nystatin Susp) 5 ml Q12 GTB Last administered on 01/31/17 09:13; Admin Dose 5 ML; Start 01/29/17 at 21:00 Ondansetron HCl (Zofran Inj) 4 mg Q6H PRN IV NAUSEA AND/OR VOMITING; Start 01/29 at 20:30 Oxcarbazepine (Trileptal) 300 mg BID GTB Last administered on 01/31/17 09:13; Admin Dose 300 MG; Start 01/29/17 at 21:00 Acetaminophen/ Hydrocodone Bitart 1 tab 1 tab Q4H PRN GTB PAIN Last administered on 01/30/17 10:31; Admin Dose 1 TAB; Start 01/29/17 at 20:30 Sodium Chloride 1,000 ml @ 30 mls/hr Q24H IV Last administered on 01/29/17 22: 22; Admin Dose 30 MLS/HR; Start 01/29/17 at 20:30 Propofol 100 ml @ 1.851 mls/ hr Q12H IV Last administered on 01/31/17 03:35; Admin Dose 12.955 MLS/HR; Start 01/29/17 at 20:30 Vancomycin HCl (Vancocin) 250 ml @ 125 mls/hr Q24H IVPB Last administered on 22:13; Admin Dose 125 MLS/HR; Start 01/30/17 at 21:00 Quetiapine Fumarate (Seroquel) 50 mg Q6 GTB Last administered on 01/31/17 06:01 ; Admin Dose 50 MG; Start 01/30/17 at 00:00 Clonidine (Catapres) 0.1 mg Q6 GTB ; Start 01/30/17 at 00:00; Status Future Hold Metoprolol Tartrate (Lopressor) 25 mg BID GTB ; Start 01/30/17 at 21:00 Assessment/Plan Chief Complaint/Hosp Course IMPRESSION: 1. Chronic respiratory failure on mechanical ventilation with underlying pulmonary fibrosis. 2. Recurrent polymicrobial sepsis. 3. Dysphagia. 4. s/p trach change for leak. PLAN: The patient will require: 1. ENT recs, monitor trach 2. Continue mechanical ventilation. 3. Continue broad-spectrum antibiotics. 4. Consider addressing code status as overall prognosis is very poor. 5. Transfer to [facility]. Problems: COLETTE SAAVEDRA MD, [facility] Jan 31, 2017 10:49
--- NOTE | 2017-01-31 11:25 | CONS ---
Date/Time of Note Date/Time of Note DATE: 01/31/17 TIME: 11:23 Assessment/Plan Assessment/Plan Chief Complaint/Hosp Course IMP: 1.Diastolic CHF 2.HTN 3.Resp failure-chronic s/p trach 4.Pulmonary fibrosis 5. PNA 6.UTI 7. Hypotension-transferred back to ICU. currently improved Recc: -Tele -Continue BB as tolerated but will further decrease dose -Continue abx's and bronchodilators -Continue abx's and f/u cx data -Follow volume status closely -Hold clonidine given hypotension -Give dose of digoxin in attempt to improve S tachycardia Problems: Consultation Date/Type/Reason Admit Date/Time Jan 29, 2017 at 18:45 Initial Consult Date 01/29/17 Type of Consultation: cardiology Reason for Consultation tachycardia Referring Provider: MATTHEW CALDERON MD Exam/Review of Systems Vital Signs Vitals Vital Signs Date Time Temp Pulse Resp B/P Pulse Ox O2 Delivery O2 Flow Rate FiO2 01/31/17 10:30 107 36 114/72 96 01/31/17 10:00 Mechanical Ventilator 01/31/17 08:00 40 01/31/17 08:00 98.8 Intake and Output 01/30/17 01/30/17 01/31/17 15:00 23:00 07:00 Intake Total 443.640 ml 447.014 ml 902.955 ml Output Total 365 ml 250 ml 275 ml Balance 78.640 ml 197.014 ml 627.955 ml Exam Review of Systems: CONSTITUTIONAL: No fevers, chills. PULMONARY: trached CARDIOVASCULAR: No chest pain/palpitations GASTROINTESTINAL: No nausea/vomiting. GENITOURINARY: No hematuria/dysuria. MUSCULOSKELETAL: No myagias/arthalgias. PSYCHIATRIC: The patient denies depression. NEUROLOGIC: No weakness Constitutional: other (sleeping) Psych: no complaints Head: normocephalic ENMT: mucosa pink and moist Neck: jvd (9 cm water), supple Respiratory: other (upper airway rhoncherous sounds) Cardiovascular: regular rate and rhythm Gastrointestinal: non-tender, soft Musculoskeletal: muscle tone (normal) Extremities: edema (none) Neurological: other (No focal deficits) Results Result Diagram: 01/31/17 0450 01/31/17 0450 Results 24 hrs Laboratory Tests Test 01/30/17 13:30 01/31/17 04:50 Urine Color SHERIN Urine Clarity SLIGHTLY CLOUDY A Urine pH 5.0 Urine Specific [place] 1.020 Urine Ketones TRACE A Urine Nitrite NEGATIVE Urine Bilirubin NEGATIVE Urine Urobilinogen NEGATIVE Urine Leukocyte Esterase TRACE A Urine Microscopic RBC 3 Urine Microscopic WBC 6 H Urine Bacteria FEW A Urine Granular Casts FEW A Urine Mucus FEW A Urine Hemoglobin NEGATIVE Urine Glucose NEGATIVE Urine Total Protein NEGATIVE White Blood Count 9.0 Red Blood Count 3.10 L Hemoglobin 9.3 L Hematocrit 29.5 L Mean Corpuscular Volume 95.2 Mean Corpuscular Hemoglobin 30.0 Mean Corpuscular Hemoglobin Concent 31.5 L Red Cell Distribution Width 16.5 H Platelet Count 273 Mean Platelet Volume 10.3 Neutrophils % 76.9 Lymphocytes % 10.1 L Monocytes % 7.0 Eosinophils % 4.7 Basophils % 0.9 Nucleated Red Blood Cells % 0.0 Neutrophils # (Manual) 6.9 Lymphocytes # 0.9 Monocytes # 0.6 Eosinophils # 0.4 Basophils # 0.1 Nucleated Red Blood Cells # 0.0 Sodium Level 140 Potassium Level 3.8 Chloride Level 103 Carbon Dioxide Level 34 H Anion Gap 7 L Blood Urea Nitrogen 14 Creatinine 0.51 L Glucose Level 103 Calcium Level 8.8 Total Bilirubin 0.0 L Direct Bilirubin 0.00 Indirect Bilirubin 0.0 Aspartate Amino Transf (AST/SGOT) 27 Alanine Aminotransferase (ALT/SGPT) 32 Alkaline Phosphatase 114 Total Protein 6.4 # Albumin 2.5 L Globulin 3.90 H Albumin/Globulin Ratio 0.64 Medications Medications Current Medications Miscellaneous [facility] This patient moss... PRN PRN XX WOUND CARE; Start 01/29/17 at 20:00 Vancomycin HCl (Vancomycin Oral Syringe) 250 mg Q6 PEG Last administered on 01/31 06:01; Admin Dose 250 MG; Start 01/29/17 at 20:00 Acetaminophen (Tylenol Liquid) 650 mg Q6H PRN GTB MILD PAIN/FEVER >= 101; Start 01/29/17 at 20:00 Ascorbic Acid (Vitamin C) 500 mg DAILY GTB Last administered on 01/31/17 09:13 ; Admin Dose 500 MG; Start 01/30/17 at 09:00 Diphenhydramine HCl (Benadryl) 25 mg Q6H PRN IV FOR AGITATION; Start 01/29/17 at 20:00 Diphenhydramine HCl (Benadryl Liquid Cup) 25 mg Q6H PRN GTB ALLERGIC REACTION; Start 01/29/17 at 20:00 Docusate Sodium (Colace Liquid Cup) 100 mg BID GTB Last administered on 22:19; Admin Dose 100 MG; Start 01/29/17 at 21:00 Folic Acid (Folic Acid) 1 mg DAILY GTB Last administered on 01/31/17 09:13; Admin Dose 1 MG; Start 01/30/17 at 09:00 Guaifenesin/ Codeine Phosphate (Robitussin Ac Liquid Cup) 5 ml Q4H PRN GTB COUGH; Start 01/29/17 at 20:00 Haloperidol (Haldol) 5 mg Q6H PRN IM AGITATION; Start 01/29/17 at 20:00 Lactobacillus Acidophilus (Florajen3 Capsule) 1 each TID NGT Last administered on 01/31/17 09:13; Admin Dose 1 EACH; Start 01/29/17 at 21:00 Lansoprazole (Prevacid) 30 mg DAILY@06 GTB Last administered on 01/31/17 06:01 ; Admin Dose 30 MG; Start 01/30/17 at 06:00 Loperamide HCl (Imodium Cap) 2 mg Q6H PRN GTB DIARRHEA; Start 01/29/17 at 20:30 Metoprolol Tartrate (Lopressor) 5 mg Q6H PRN IV HR > 120 ( IF SBP > 120); Start 01/29/17 at 20:30 Morphine Sulfate (morphine) 2 mg Q4H PRN IV SEVERE PAIN Last administered on 10:31; Admin Dose 2 MG; Start 01/29/17 at 20:30 Multivitamins 30 ml 30 ml DAILY GTB Last administered on 01/31/17 09:13; Admin Dose 30 ML; Start 01/30/17 at 09:00 Meropenem/Sodium Chloride (Merrem 1 Gm/50 ml (Pmx)) 50 ml @ 100 mls/hr Q8 IVPB Last administered on 01/31/17 06:01; Admin Dose 100 MLS/HR; Start 01/29/17 at 22:00 IV Flush (NS 10 ml) 10 ml PRN PRN IV PRN; Start 01/29/17 at 20:30 Nystatin (Nystatin Susp) 5 ml Q12 GTB Last administered on 01/31/17 09:13; Admin Dose 5 ML; Start 01/29/17 at 21:00 Ondansetron HCl (Zofran Inj) 4 mg Q6H PRN IV NAUSEA AND/OR VOMITING; Start 01/29 at 20:30 Oxcarbazepine (Trileptal) 300 mg BID GTB Last administered on 01/31/17 09:13; Admin Dose 300 MG; Start 01/29/17 at 21:00 Acetaminophen/ Hydrocodone Bitart 1 tab 1 tab Q4H PRN GTB PAIN Last administered on 01/30/17 10:31; Admin Dose 1 TAB; Start 01/29/17 at 20:30 Sodium Chloride 1,000 ml @ 30 mls/hr Q24H IV Last administered on 01/29/17 22: 22; Admin Dose 30 MLS/HR; Start 01/29/17 at 20:30 Propofol 100 ml @ 1.851 mls/ hr Q12H IV Last administered on 01/31/17 03:35; Admin Dose 12.955 MLS/HR; Start 01/29/17 at 20:30 Vancomycin HCl (Vancocin) 250 ml @ 125 mls/hr Q24H IVPB Last administered on 22:13; Admin Dose 125 MLS/HR; Start 01/30/17 at 21:00 Quetiapine Fumarate (Seroquel) 50 mg Q6 GTB Last administered on 01/31/17 06:01 ; Admin Dose 50 MG; Start 01/30/17 at 00:00 Clonidine (Catapres) 0.1 mg Q6 GTB ; Start 01/30/17 at 00:00; Status Future Hold Metoprolol Tartrate (Lopressor) 25 mg BID GTB ; Start 01/30/17 at 21:00 CLOVIS LEON Jan 31, 2017 11:25
[2017-01-31] MEDS ORDERED: DIGOXIN 500 MCG INJ IV ONE (11:30)
--- NOTE | 2017-01-31 11:57 | CONS ---
Date/Time of Note Date/Time of Note DATE: 01/31/17 TIME: 11:51 Assessment/Plan Assessment/Plan Additional Assessment/Plan 1. Vent dependent respiratory failure secondary to pulmonary fibrosis 2. Anemia most probably related to chronic disease, given the history of GI bleeding in the past will send stool for occult blood and anemia workup. 3. CHF 4. UTI 5. Pneumonia 6. Leaking tracheostomy site 7. Fatty liver 8. Alcoholism Plan Anemia workup Stool for occult blood Continue G-tube feeding with aspiration precaution Tracheostomy tube needs to be changed by the ENT surgeon Continue all supportive care Consultation Date/Type/Reason Admit Date/Time Jan 29, 2017 at 18:45 Reason for Consultation Anemia possible GI bleeding Hx of Present Illness 71-year-old male with history of pulmonary fibrosis, chronic CHF, dysphagia status post PEG, fatty liver, history of alcoholism, admitted to intensive care unit for shortness of breath. Patient was found to have leaking tracheostomy tube which needs to be evaluated by the ENT surgeon. GI consult was called in for the anemia. Case discussed with the staff no GI bleeding G-tube aspirate was negative for blood no hematochezia or melena. Patient denies of any abdominal pain no nausea no vomiting. Psychological: no complaints Past Medical History Medical History: congestive heart failure, GI bleed, hypertension, urinary tract infection, other (pulmonary fibrosis) Past Surgical History Past Surgical Hx: endoscopy, other (trach) Social History Alcohol Use: none Drug Use: none Exam/Review of Systems Vital Signs Vitals Vital Signs Date Time Temp Pulse Resp B/P Pulse Ox O2 Delivery O2 Flow Rate FiO2 01/31/17 10:30 107 36 114/72 96 01/31/17 10:00 Mechanical Ventilator 01/31/17 08:00 40 01/31/17 08:00 98.8 Intake and Output 01/30/17 01/30/17 01/31/17 14:59 22:59 06:59 Intake Total 443.640 ml 379.969 ml 940 ml Output Total 325 ml 260 ml 305 ml Balance 118.640 ml 119.969 ml 635 ml Exam Psych: nl mood/affect, no complaints Head: atraumatic, normocephalic Respiratory: other Gastrointestinal: nl liver, spleen, non-tender, other (As G-tube and tolerating feeding no evidence of cellulitis), soft Musculoskeletal: nl extremities to inspection, nl gait and stance Extremities: normal pulses Neurological: BARBACK II-XII intact, nl mental status, nl speech, nl strength Skin: nl turgor, No rash or lesions Results Result Diagram: 01/31/1744901/31/17449 Results 24 hrs Laboratory Tests Test 01/30/17 13:30 01/31/17 04:50 Urine Color SHERIN Urine Clarity SLIGHTLY CLOUDY A Urine pH 5.0 Urine Specific [place] 1.020 Urine Ketones TRACE A Urine Nitrite NEGATIVE Urine Bilirubin NEGATIVE Urine Urobilinogen NEGATIVE Urine Leukocyte Esterase TRACE A Urine Microscopic RBC 3 Urine Microscopic WBC 6 H Urine Bacteria FEW A Urine Granular Casts FEW A Urine Mucus FEW A Urine Hemoglobin NEGATIVE Urine Glucose NEGATIVE Urine Total Protein NEGATIVE White Blood Count 9.0 Red Blood Count 3.10 L Hemoglobin 9.3 L Hematocrit 29.5 L Mean Corpuscular Volume 95.2 Mean Corpuscular Hemoglobin 30.0 Mean Corpuscular Hemoglobin Concent 31.5 L Red Cell Distribution Width 16.5 H Platelet Count 273 Mean Platelet Volume 10.3 Neutrophils % 76.9 Lymphocytes % 10.1 L Monocytes % 7.0 Eosinophils % 4.7 Basophils % 0.9 Nucleated Red Blood Cells % 0.0 Neutrophils # (Manual) 6.9 Lymphocytes # 0.9 Monocytes # 0.6 Eosinophils # 0.4 Basophils # 0.1 Nucleated Red Blood Cells # 0.0 Sodium Level 140 Potassium Level 3.8 Chloride Level 103 Carbon Dioxide Level 34 H Anion Gap 7 L Blood Urea Nitrogen 14 Creatinine 0.51 L Glucose Level 103 Calcium Level 8.8 Total Bilirubin 0.0 L Direct Bilirubin 0.00 Indirect Bilirubin 0.0 Aspartate Amino Transf (AST/SGOT) 27 Alanine Aminotransferase (ALT/SGPT) 32 Alkaline Phosphatase 114 Total Protein 6.4 # Albumin 2.5 L Globulin 3.90 H Albumin/Globulin Ratio 0.64 Medications Medications Current Medications Miscellaneous Information (Pending [facility] Order For Wound Care) This patient moss... PRN PRN XX WOUND CARE; Start 01/29/17 at 20:00 Vancomycin HCl (Vancomycin Oral Syringe) 250 mg Q6 PEG Last administered on 01/31t 11:34; Admin Dose 250 MG; Start 01/29/17 at 20:00 Acetaminophen (Tylenol Liquid) 650 mg Q6H PRN GTB MILD PAIN/FEVER >= 101; Start 01/29/17 at 20:00 Ascorbic Acid (Vitamin C) 500 mg DAILY GTB Last administered on 01/31/17 09:13 ; Admin Dose 500 MG; Start 01/30/17 at 09:00 Diphenhydramine HCl (Benadryl) 25 mg Q6H PRN IV FOR AGITATION; Start 01/29/17 at 20:00 Diphenhydramine HCl (Benadryl Liquid Cup) 25 mg Q6H PRN GTB ALLERGIC REACTION; Start 01/29/17 at 20:00 Docusate Sodium (Colace Liquid Cup) 100 mg BID GTB Last administered on 22:19; Admin Dose 100 MG; Start 01/29/17 at 21:00 Folic Acid (Folic Acid) 1 mg DAILY GTB Last administered on 01/31/17 09:13; Admin Dose 1 MG; Start 01/30/17 at 09:00 Guaifenesin/ Codeine Phosphate (Robitussin Ac Liquid Cup) 5 ml Q4H PRN GTB COUGH; Start 01/29/17 at 20:00 Haloperidol (Haldol) 5 mg Q6H PRN IM AGITATION; Start 01/29/17 at 20:00 Lactobacillus Acidophilus (Florajen3 Capsule) 1 each TID NGT Last administered on 01/31/17 09:13; Admin Dose 1 EACH; Start 01/29/17 at 21:00 Lansoprazole (Prevacid) 30 mg DAILY@06 GTB Last administered on 01/31/17 06:01 ; Admin Dose 30 MG; Start 01/30/17 at 06:00 Loperamide HCl (Imodium Cap) 2 mg Q6H PRN GTB DIARRHEA; Start 01/29/17 at 20:30 Metoprolol Tartrate (Lopressor) 5 mg Q6H PRN IV HR > 120 ( IF SBP > 120); Start 01/29/17 at 20:30 Morphine Sulfate (morphine) 2 mg Q4H PRN IV SEVERE PAIN Last administered on 10:31; Admin Dose 2 MG; Start 01/29/17 at 20:30 Multivitamins 30 ml 30 ml DAILY GTB Last administered on 01/31/17 09:13; Admin Dose 30 ML; Start 01/30/17 at 09:00 Meropenem/Sodium Chloride (Merrem 1 Gm/50 ml (Pmx)) 50 ml @ 100 mls/hr Q8 IVPB Last administered on 01/31/17 06:01; Admin Dose 100 MLS/HR; Start 01/29/17 at 22:00 IV Flush (NS 10 ml) 10 ml PRN PRN IV PRN; Start 01/29/17 at 20:30 Nystatin (Nystatin Susp) 5 ml Q12 GTB Last administered on 01/31/17 09:13; Admin Dose 5 ML; Start 01/29/17 at 21:00 Ondansetron HCl (Zofran Inj) 4 mg Q6H PRN IV NAUSEA AND/OR VOMITING; Start 01/29 at 20:30 Oxcarbazepine (Trileptal) 300 mg BID GTB Last administered on 01/31/17 09:13; Admin Dose 300 MG; Start 01/29/17 at 21:00 Acetaminophen/ Hydrocodone Bitart 1 tab 1 tab Q4H PRN GTB PAIN Last administered on 01/30/17 10:31; Admin Dose 1 TAB; Start 01/29/17 at 20:30 Sodium Chloride 1,000 ml @ 30 mls/hr Q24H IV Last administered on 01/29/17 22: 22; Admin Dose 30 MLS/HR; Start 01/29/17 at 20:30 Propofol 100 ml @ 1.851 mls/ hr Q12H IV Last administered on 01/31/17 11:34; Admin Dose 7.403 MLS/HR; Start 01/29/17 at 20:30 Vancomycin HCl (Vancocin) 250 ml @ 125 mls/hr Q24H IVPB Last administered on 22:13; Admin Dose 125 MLS/HR; Start 01/30/17 at 21:00 Quetiapine Fumarate (Seroquel) 50 mg Q6 GTB Last administered on 01/31/17 11:34 ; Admin Dose 50 MG; Start 01/30/17 at 00:00 Clonidine (Catapres) 0.1 mg Q6 GTB ; Start 01/30/17 at 00:00; Status Future Hold Metoprolol Tartrate (Lopressor) 12.5 mg BID GTB ; Start 01/31/17 at 21:00 KASHMIR NOVAK MD Jan 31, 2017 11:57
--- NOTE | 2017-01-31 18:58 | CONS ---
Date/Time of Note Date/Time of Note DATE: 01/31/17 TIME: 18:55 Assessment/Plan Assessment/Plan Chief Complaint/Hosp Course assessment/impression - possible, recurrent sepsis - probable colonization of the resp tract by Gram negative bacteria - underlying pulmonary fibrosis - mental status change after haloperidol and morphine, now stable - mental status change after lorazepam, now stable - funguria, no/minimal pyuria - VDRF s/p trach 10/09/2016 - dysphagia s/p PEG placement 10/09/2016 - erythroderma of unclear etiology in 11/2016, resolved - h/o CARLOS - encephalopathy, improved - s/p recurrent sepsis due to HCAP and UTI - h/o HCAP due to MDR acinetobacter and ESBL E. Coli - h/o colonization with ESBL and CRE - h/o recurrent UTI due to ESBL E. Coli - h/o thrush - h/o bacteremia 10/28/2016 due to enterococcus faecium. Midline was dc'd - h/0 bacteremia 12/21/2016 due to enterococcus faecalis - s/p severe sepsis due to UTI, prob aspiration after hematemesis and multiple intubation events, and HCAP - s/p acute UGIB of unclear etiology; s/p EGD 10/01/2016 showing no active bleeding site - HLD and fatty liver - h/o alcoholism - chronic diastolic HF - diverticulosis, seen on CT at [facility] - severe protein calorie malnutrition - h/o fall and trauma to R foot recommendations: - pending results: final blood and resp cultures - continue empiric IV vancomycin and meropenem (01/29/2017-); plan to de-escalate soon - continue pGT vancomcyin for C diff colitis. No metronidazole to avoid neurotoxicity - enteric contact isolation for C diff colitis management d/w Pt's RN, the critical care time I took to care for this Pt today was from 1800 to 1835 Problems: Consultation Date/Type/Reason Admit Date/Time Jan 29, 2017 at 18:45 Initial Consult Date 01/29/17 Type of Consultation: ID Referring Provider: MATTHEW CALDERON MD 24 HR Interval Summary Subjective hx not possible: pt non-verbal Exam/Review of Systems Vital Signs Vitals Vital Signs Date Time Temp Pulse Resp B/P Pulse Ox O2 Delivery O2 Flow Rate FiO2 01/31/17 18:45 105 27 130/66 100 01/31/17 17:15 40 01/31/17 16:00 98.3 01/31/17 14:15 Mechanical Ventilator Intake and Output 01/30/17 01/30/17 01/31/17 15:00 23:00 07:00 Intake Total 443.640 ml 447.014 ml 902.955 ml Output Total 365 ml 250 ml 275 ml Balance 78.640 ml 197.014 ml 627.955 ml Exam Constitutional: frail, non-verbal Psych: nl mood/affect, no complaints, No confusion Head: atraumatic, normocephalic Eyes: nl conjunctiva, nl lids ENMT: nl external ears & nose Neck: other (trach) Respiratory: diminished breath sounds Cardiovascular: nl pulses, regular rate and rhythm Gastrointestinal: non-tender, soft Musculoskeletal: nl extremities to inspection Extremities: No edema Neurological: lethargic, No confused Skin: nl turgor Results Result Diagram: 01/31/17 0450 01/31/17 0450 Results 24 hrs Laboratory Tests Test 01/31/17 04:50 White Blood Count 9.0 Red Blood Count 3.10 L Hemoglobin 9.3 L Hematocrit 29.5 L Mean Corpuscular Volume 95.2 Mean Corpuscular Hemoglobin 30.0 Mean Corpuscular Hemoglobin Concent 31.5 L Red Cell Distribution Width 16.5 H Platelet Count 273 Mean Platelet Volume 10.3 Neutrophils % 76.9 Lymphocytes % 10.1 L Monocytes % 7.0 Eosinophils % 4.7 Basophils % 0.9 Nucleated Red Blood Cells % 0.0 Neutrophils # (Manual) 6.9 Lymphocytes # 0.9 Monocytes # 0.6 Eosinophils # 0.4 Basophils # 0.1 Nucleated Red Blood Cells # 0.0 Sodium Level 140 Potassium Level 3.8 Chloride Level 103 Carbon Dioxide Level 34 H Anion Gap 7 L Blood Urea Nitrogen 14 Creatinine 0.51 L Glucose Level 103 Calcium Level 8.8 Total Bilirubin 0.0 L Direct Bilirubin 0.00 Indirect Bilirubin 0.0 Aspartate Amino Transf (AST/SGOT) 27 Alanine Aminotransferase (ALT/SGPT) 32 Alkaline Phosphatase 114 Total Protein 6.4 # Albumin 2.5 L Globulin 3.90 H Albumin/Globulin Ratio 0.64 Medications Medications Current Medications Miscellaneous Information ([facility] This patient moss... PRN PRN XX WOUND CARE; Start 01/29/17 at 20:00 Vancomycin HCl (Vancomycin Oral Syringe) 250 mg Q6 PEG Last administered on 01/31 17:46; Admin Dose 250 MG; Start 01/29/17 at 20:00 Acetaminophen (Tylenol Liquid) 650 mg Q6H PRN GTB MILD PAIN/FEVER >= 101; Start 01/29/17 at 20:00 Ascorbic Acid (Vitamin C) 500 mg DAILY GTB Last administered on 01/31/17 09:13 ; Admin Dose 500 MG; Start 01/30/17 at 09:00 Diphenhydramine HCl (Benadryl) 25 mg Q6H PRN IV FOR AGITATION; Start 01/29/17 at 20:00 Diphenhydramine HCl (Benadryl Liquid Cup) 25 mg Q6H PRN GTB ALLERGIC REACTION; Start 01/29/17 at 20:00 Docusate Sodium (Colace Liquid Cup) 100 mg BID GTB Last administered on 22:19; Admin Dose 100 MG; Start 01/29/17 at 21:00 Folic Acid (Folic Acid) 1 mg DAILY GTB Last administered on 01/31/17 09:13; Admin Dose 1 MG; Start 01/30/17 at 09:00 Guaifenesin/ Codeine Phosphate (Robitussin Ac Liquid Cup) 5 ml Q4H PRN GTB COUGH; Start 01/29/17 at 20:00 Haloperidol (Haldol) 5 mg Q6H PRN IM AGITATION Last administered on 01/31/17 17 :53; Admin Dose 5 MG; Start 01/29/17 at 20:00 Lactobacillus Acidophilus (Florajen3 Capsule) 1 each TID NGT Last administered on 01/31/17 15:06; Admin Dose 1 EACH; Start 01/29/17 at 21:00 Lansoprazole (Prevacid) 30 mg DAILY@06 GTB Last administered on 01/31/17 06:01 ; Admin Dose 30 MG; Start 01/30/17 at 06:00 Loperamide HCl (Imodium Cap) 2 mg Q6H PRN GTB DIARRHEA; Start 01/29/17 at 20:30 Metoprolol Tartrate (Lopressor) 5 mg Q6H PRN IV HR > 120 ( IF SBP > 120); Start 01/29/17 at 20:30 Morphine Sulfate (morphine) 2 mg Q4H PRN IV SEVERE PAIN Last administered on 16:33; Admin Dose 2 MG; Start 01/29/17 at 20:30 Multivitamins 30 ml 30 ml DAILY GTB Last administered on 01/31/17 09:13; Admin Dose 30 ML; Start 01/30/17 at 09:00 Meropenem/Sodium Chloride (Merrem 1 Gm/50 ml (Pmx)) 50 ml @ 100 mls/hr Q8 IVPB Last administered on 01/31/17 15:06; Admin Dose 100 MLS/HR; Start 01/29/17 at 22:00 IV Flush (NS 10 ml) 10 ml PRN PRN IV PRN; Start 01/29/17 at 20:30 Nystatin (Nystatin Susp) 5 ml Q12 GTB Last administered on 01/31/17 09:13; Admin Dose 5 ML; Start 01/29/17 at 21:00 Ondansetron HCl (Zofran Inj) 4 mg Q6H PRN IV NAUSEA AND/OR VOMITING; Start 01/29 at 20:30 Oxcarbazepine (Trileptal) 300 mg BID GTB Last administered on 01/31/17 09:13; Admin Dose 300 MG; Start 01/29/17 at 21:00 Acetaminophen/ Hydrocodone Bitart 1 tab 1 tab Q4H PRN GTB PAIN Last administered on 01/30/17 10:31; Admin Dose 1 TAB; Start 01/29/17 at 20:30 Sodium Chloride 1,000 ml @ 30 mls/hr Q24H IV Last administered on 01/29/17 22: 22; Admin Dose 30 MLS/HR; Start 01/29/17 at 20:30 Propofol 100 ml @ 1.851 mls/ hr Q12H IV Last administered on 01/31/17 11:34; Admin Dose 7.403 MLS/HR; Start 01/29/17 at 20:30 Vancomycin HCl (Vancocin) 250 ml @ 125 mls/hr Q24H IVPB Last administered on 22:13; Admin Dose 125 MLS/HR; Start 01/30/17 at 21:00 Quetiapine Fumarate (Seroquel) 50 mg Q6 GTB Last administered on 01/31/17t 17:46 ; Admin Dose 50 MG; Start 01/30/17 at 00:00 Clonidine (Catapres) 0.1 mg Q6 GTB ; Start 01/30/17 at 00:00; Status Future Hold Metoprolol Tartrate (Lopressor) 12.5 mg BID GTB ; Start 01/31/17 at 21:00 MADISON PIERRE M.D. Jan 31, 2017 18:58
--- NOTE | 2017-01-31 19:09 | PN ---
Date/Time of Note Date/Time of Note DATE: 01/31/17 TIME: 19:04 Assessment/Plan Lines/Catheters IV Catheter Type (from Nrs): Central Line Urinary Cath still in place: Yes Assessment/Plan Assessment/Plan - Chronic respiratory failure on mechanical ventilation with underlying pulmonary fibrosis-VDRF s/p trach 10/09/2016 - per Pulmonary - Continue mechanical ventilation. - Recurrent polymicrobial sepsis- VRE stool/ESBL urine - per ID -Continue broad-spectrum antibiotics. - contact isolation - Anemia- drop in H/H - pREVACID - will consult GI- Dr Connelly notified - continue to monitor H&H. - stool OB - Dysphagia. - s/p PEG placement 10/09/2016 - Possible trach site leak. - Per ENT- pending evaluation - Eephalopathy - Multi Drug Allergy - HLD and fatty liver - mental status change after haloperidol and morphine, lorazepam - Hx erythroderma of unclear etiology in 11/2016, resolved - h/o CARLOS - h/o alcoholism - chronic diastolic HF - diverticulosis, seen on CT at [facility] - severe protein calorie malnutrition - h/o fall and trauma to R foot Subjective 24 Hr Interval Summary Free Text/Dictation Off propofol, remains on vent. afebrile, dw staff- no new issues reported.- dw staff Constitutional: requiring IVF, requiring O2 Exam/Review of Systems Vital Signs Vitals Vital Signs Date Time Temp Pulse Resp B/P Pulse Ox O2 Delivery O2 Flow Rate FiO2 01/31/17 18:45 105 27 130/66 100 01/31/17 18:00 Mechanical Ventilator 01/31/17 17:15 40 01/31/17 16:00 98.3 Intake and Output 01/30/17 01/30/17 01/31/17 15:00 23:00 07:00 Intake Total 443.640 ml 447.014 ml 902.955 ml Output Total 365 ml 250 ml 275 ml Balance 78.640 ml 197.014 ml 627.955 ml Exam Constitutional: non-verbal Respiratory: diminished breath sounds, normal air movement, other Cardiovascular: nl pulses, regular rate and rhythm Gastrointestinal: non-tender, other, soft Musculoskeletal: nl extremities to inspection Neurological: unresponsive Results Result Diagram: 01/31/17 0450 01/31/17 0450 Results 24 hrs Laboratory Tests Test 01/31/17 04:50 White Blood Count 9.0 Red Blood Count 3.10 L Hemoglobin 9.3 L Hematocrit 29.5 L Mean Corpuscular Volume 95.2 Mean Corpuscular Hemoglobin 30.0 Mean Corpuscular Hemoglobin Concent 31.5 L Red Cell Distribution Width 16.5 H Platelet Count 273 Mean Platelet Volume 10.3 Neutrophils % 76.9 Lymphocytes % 10.1 L Monocytes % 7.0 Eosinophils % 4.7 Basophils % 0.9 Nucleated Red Blood Cells % 0.0 Neutrophils # (Manual) 6.9 Lymphocytes # 0.9 Monocytes # 0.6 Eosinophils # 0.4 Basophils # 0.1 Nucleated Red Blood Cells # 0.0 Sodium Level 140 Potassium Level 3.8 Chloride Level 103 Carbon Dioxide Level 34 H Anion Gap 7 L Blood Urea Nitrogen 14 Creatinine 0.51 L Glucose Level 103 Calcium Level 8.8 Total Bilirubin 0.0 L Direct Bilirubin 0.00 Indirect Bilirubin 0.0 Aspartate Amino Transf (AST/SGOT) 27 Alanine Aminotransferase (ALT/SGPT) 32 Alkaline Phosphatase 114 Total Protein 6.4 # Albumin 2.5 L Globulin 3.90 H Albumin/Globulin Ratio 0.64 Medications Medications Current Medications Miscellaneous Information (Pending [facility] Order For Wound Care) This patient moss... PRN PRN XX WOUND CARE; Start 01/29/17 at 20:00 Vancomycin HCl (Vancomycin Oral Syringe) 250 mg Q6 PEG Last administered on 01/31 17:46; Admin Dose 250 MG; Start 01/29/17 at 20:00 Acetaminophen (Tylenol Liquid) 650 mg Q6H PRN GTB MILD PAIN/FEVER >= 101; Start 01/29/17 at 20:00 Ascorbic Acid (Vitamin C) 500 mg DAILY GTB Last administered on 01/31/17 09:13 ; Admin Dose 500 MG; Start 01/30/17 at 09:00 Diphenhydramine HCl (Benadryl) 25 mg Q6H PRN IV FOR AGITATION; Start 01/29/17 at 20:00 Diphenhydramine HCl (Benadryl Liquid Cup) 25 mg Q6H PRN GTB ALLERGIC REACTION; Start 01/29/17 at 20:00 Docusate Sodium (Colace Liquid Cup) 100 mg BID GTB Last administered on 22:19; Admin Dose 100 MG; Start 01/29/17 at 21:00 Folic Acid (Folic Acid) 1 mg DAILY GTB Last administered on 01/31/17 09:13; Admin Dose 1 MG; Start 01/30/17 at 09:00 Guaifenesin/ Codeine Phosphate (Robitussin Ac Liquid Cup) 5 ml Q4H PRN GTB COUGH; Start 01/29/17 at 20:00 Haloperidol (Haldol) 5 mg Q6H PRN IM AGITATION Last administered on 01/31/17 17 :53; Admin Dose 5 MG; Start 01/29/17 at 20:00 Lactobacillus Acidophilus (Florajen3 Capsule) 1 each TID NGT Last administered on 01/31/17 15:06; Admin Dose 1 EACH; Start 01/29/17 at 21:00 Lansoprazole (Prevacid) 30 mg DAILY@06 GTB Last administered on 01/31/17 06:01 ; Admin Dose 30 MG; Start 01/30/17 at 06:00 Loperamide HCl (Imodium Cap) 2 mg Q6H PRN GTB DIARRHEA; Start 01/29/17 at 20:30 Metoprolol Tartrate (Lopressor) 5 mg Q6H PRN IV HR > 120 ( IF SBP > 120); Start 01/29/17 at 20:30 Morphine Sulfate (morphine) 2 mg Q4H PRN IV SEVERE PAIN Last administered on 16:33; Admin Dose 2 MG; Start 01/29/17 at 20:30 Multivitamins 30 ml 30 ml DAILY GTB Last administered on 01/31/17 09:13; Admin Dose 30 ML; Start 01/30/17 at 09:00 Meropenem/Sodium Chloride (Merrem 1 Gm/50 ml (Pmx)) 50 ml @ 100 mls/hr Q8 IVPB Last administered on 01/31/17 15:06; Admin Dose 100 MLS/HR; Start 01/29/17 at 22:00 IV Flush (NS 10 ml) 10 ml PRN PRN IV PRN; Start 01/29/17 at 20:30 Nystatin (Nystatin Susp) 5 ml Q12 GTB Last administered on 01/31/17 09:13; Admin Dose 5 ML; Start 01/29/17 at 21:00 Ondansetron HCl (Zofran Inj) 4 mg Q6H PRN IV NAUSEA AND/OR VOMITING; Start 01/29 at 20:30 Oxcarbazepine (Trileptal) 300 mg BID GTB Last administered on 01/31/17 09:13; Admin Dose 300 MG; Start 01/29/17 at 21:00 Acetaminophen/ Hydrocodone Bitart 1 tab 1 tab Q4H PRN GTB PAIN Last administered on 01/30/17 10:31; Admin Dose 1 TAB; Start 01/29/17 at 20:30 Sodium Chloride 1,000 ml @ 30 mls/hr Q24H IV Last administered on 01/29/17 22: 22; Admin Dose 30 MLS/HR; Start 01/29/17 at 20:30 Propofol 100 ml @ 1.851 mls/ hr Q12H IV Last administered on 01/31/17 11:34; Admin Dose 7.403 MLS/HR; Start 01/29/17 at 20:30 Vancomycin HCl (Vancocin) 250 ml @ 125 mls/hr Q24H IVPB Last administered on 22:13; Admin Dose 125 MLS/HR; Start 01/30/17 at 21:00 Quetiapine Fumarate (Seroquel) 50 mg Q6 GTB Last administered on 01/31/17 17:46 ; Admin Dose 50 MG; Start 01/30/17 at 00:00 Clonidine (Catapres) 0.1 mg Q6 GTB ; Start 01/30/17 at 00:00; Status Future Hold Metoprolol Tartrate (Lopressor) 12.5 mg BID GTB ; Start 01/31/17 at 21:00 CHARITY DUKE Jan 31, 2017 19:09
[2017-01-31] MEDS: METOPROLOL 25 MG TAB GTB SCH (21:47)
[2017-01-31] MEDS: VANCOMYCIN 1 GM in NS 250 ML IVPB SCH (21:47)
[2017-01-31] MEDS: SOD CHLORIDE 0.9% 1,000 ML IV SCH (21:48)
[2017-02-01] VITALS (53 sets, daily range): BP systolic 105–149; BP diastolic 56–108; PULSE 72–120; RESP 13–44
[2017-02-01] MEDS: QUETIAPINE 25 MG TAB GTB SCH ×4 (00:34→18:09)
[2017-02-01] MEDS: VANCOMYCIN HCL 250 MG/5ML POSYG PEG SCH ×4 (00:34→18:09)
[2017-02-01] MEDS: ALBUTEROL 18 GM INHALER INH SCH ×6 (01:05→21:27)
[2017-02-01] MEDS: IPRATROPIUM (HFA) 12.9 GM INHALER INH SCH ×6 (01:05→21:27)
[2017-02-01] MEDS: MEROPENEM 1 GM/50ML(PMX) 50 ML IVPB SCH ×3 (06:03→22:44)
[2017-02-01] MEDS: LANSOPRAZOLE 30 MG CAP GTB SCH (06:03)
[2017-02-01 06:39] LABS: RETICULOCYTE COUNT % 0.8 % (0.5-1.5)
[2017-02-01 07:18] LABS: ALBUMIN 2.6 g/dl (3.3-4.9); ALBUMIN/GLOBULIN RATIO 0.65; CALCIUM 8.7 mg/dl (8.4-10.2); CREATININE 0.48 mg/dl (0.61-1.24); POTASSIUM 4.2 mmol/L (3.5-5.1); TOTAL PROTEIN 6.6 g/dl (6.1-8.1)
[2017-02-01 08:24] LABS: FOLATE > 20.0 ng/ml (2.8-20.0)
[2017-02-01] MEDS: OXCARBAZEPINE 300 MG TAB GTB SCH ×2 (08:37→20:51)
[2017-02-01] MEDS: MULTIVITAMINS 30 ML CUP GTB SCH (08:37)
[2017-02-01] MEDS: NYSTATIN SUSP 5 ML CUP GTB SCH ×2 (08:37→20:52)
[2017-02-01] MEDS: ASCORBIC ACID 500 MG TAB GTB SCH (08:37)
[2017-02-01] MEDS: DOCUSATE SODIUM 10 MG/ML (10ML CUP) GTB SCH ×2 (08:37→20:51)
[2017-02-01] MEDS: METOPROLOL 25 MG TAB GTB SCH ×2 (08:38→20:51)
[2017-02-01] MEDS: L ACIDOPHIL/B LACTIS/B LONGUM CAPSULE NGT SCH ×3 (08:38→20:51)
[2017-02-01] MEDS: BALSAM PERU/CASTOR OIL 60 GM TUBE TOP SCH ×2 (08:38→21:00)
[2017-02-01] MEDS: FOLIC ACID 1 MG TAB GTB SCH (08:38)
--- NOTE | 2017-02-01 11:50 | PN ---
DATE: 02/01/2017 SUBJECTIVE DATA: Patient remained stable this morning. No new events. OBJECTIVE DATA: VITAL SIGNS: Temperature 98, pulse is 75, blood pressure 123/90, O2 sat 96 percent, FiO2 of 40 percent. NECK: Trach site clean. CARDIAC: Sounds S1, S2. No added sounds or murmurs. CHEST: Diminished air entry bilaterally. ABDOMEN: Soft, nontender. No guarding or rebound. EXTREMITIES: No cyanosis, clubbing or edema. NEUROLOGIC: Generalized weakness. LABS: White count 9, hemoglobin 9.3, platelets of 273. BUN 11, creatinine 0.48. IMPRESSION: 1. Vent-dependent respiratory failure. 2. Chronic interstitial lung disease. 3. Recurrent polymicrobial sepsis. 4. History of acute kidney injury. PLAN: 1. Continue broad-spectrum antibiotics. Currently on vancomycin and meropenem. 2. Continue tube feeding. 3. Continue mechanical ventilation. 4. Transfer to telemetry and [facility]. Overall prognosis remains guarded. Dictated By: Manolo Souza MD /indio/agnes /Document#: [id number]
--- NOTE | 2017-02-01 12:19 | CONS ---
Date/Time of Note Date/Time of Note DATE: 02/01/17 TIME: 12:12 Consultation Date/Type/Reason Admit Date/Time Jan 29, 2017 at 18:45 Type of Consultation: Palliative care Hx of Present Illness This is a 71-year-old male who is in the intensive care unit [facility] in shock, septic presumably secondary to pneumonia. She was transferred from [facility], with mental status changes precipitous change in his overall clinical condition. Patient is chronically PEG trach. Current medical history significant for diastolic congestive heart failure, respiratory failure chronically, anemia, end-stage renal disease on hemodialysis , fluid and electrolyte abnormalities, questionable history of delirium, recent history of recurrent hospitalizations, hyperlipidemia, malnutrition and wasting syndrome. Patient is full code decision-maker is his at the bedside patient has children but they are not in the state who have been in contact primarily by email. They are aware that he is critically ill I have had extensive conversation with patient's she is a decision occur only. Background social history has been discussed her hopes desires acceptable quality of life have been reviewed. She does not want him to live her quality of life, she does not want him to have cardiopulmonary resuscitation indication preferences 1 1 has spoken about level of care prior to this catastrophic change in his condition he does not want to live by artificial means. Goals of care been discussed and that is to keep him comfortable without advanced cardiac life support his prognosis is grave.. Patient's will consider comfort measures she requests additional time with him. Constitutional: requiring IVF, requiring O2 Psychological: nl mood/affect, no complaints, No confusion Past Medical History Medical History: congestive heart failure, GI bleed, hypertension, urinary tract infection, other (pulmonary fibrosis) Past Surgical History Past Surgical Hx: endoscopy, other (trach) Social History Alcohol Use: none Drug Use: none Exam/Review of Systems Vital Signs Vitals Vital Signs Date Time Temp Pulse Resp B/P Pulse Ox O2 Delivery O2 Flow Rate FiO2 02/01/17 09:45 75 24 100 40 02/01/17 08:00 98.0 123/60 Mechanical Ventilator Intake and Output 01/31/17 01/31/17 02/01/17 15:00 23:00 07:00 Intake Total 550.715 ml 680 ml 470 ml Output Total 225 ml 775 ml 480 ml Balance 325.715 ml -95 ml -10 ml Results Result Diagram: 01/31/17 0450 02/01/17 0617 Results 24 hrs Laboratory Tests Test 02/01/17 06:17 Absolute Reticulocyte Count 0.025 Percent Reticulocyte Count 0.8 Sodium Level 139 Potassium Level 4.2 Chloride Level 102 Carbon Dioxide Level 35 H Anion Gap 6 L Blood Urea Nitrogen 11 Creatinine 0.48 L Glucose Level 103 Calcium Level 8.7 Ferritin 753.0 H Total Bilirubin 0.0 L Direct Bilirubin 0.00 Indirect Bilirubin 0.0 Aspartate Amino Transf (AST/SGOT) 25 Alanine Aminotransferase (ALT/SGPT) 27 Alkaline Phosphatase 103 Total Protein 6.6 Albumin 2.6 L Globulin 4.00 H Albumin/Globulin Ratio 0.65 Vitamin B12 Level 999 H Folate > 20.0 H Medications Medications Current Medications Miscellaneous Information (Pending [facility] Order For Wound Care) This patient moss... PRN PRN XX WOUND CARE; Start 01/29/17 at 20:00 Vancomycin HCl (Vancomycin Oral Syringe) 250 mg Q6 PEG Last administered on 02/01 06:03; Admin Dose 250 MG; Start 01/29/17 at 20:00 Acetaminophen (Tylenol Liquid) 650 mg Q6H PRN GTB MILD PAIN/FEVER >= 101; Start 01/29/17 at 20:00 Ascorbic Acid (Vitamin C) 500 mg DAILY GTB Last administered on 02/01/17 08:37 ; Admin Dose 500 MG; Start 01/30/17 at 09:00 Diphenhydramine HCl (Benadryl) 25 mg Q6H PRN IV FOR AGITATION; Start 01/29/17 at 20:00 Diphenhydramine HCl (Benadryl Liquid Cup) 25 mg Q6H PRN GTB ALLERGIC REACTION; Start 01/29/17 at 20:00 Docusate Sodium (Colace Liquid Cup) 100 mg BID GTB Last administered on 08:37; Admin Dose 100 MG; Start 01/29/17 at 21:00 Folic Acid (Folic Acid) 1 mg DAILY GTB Last administered on 02/01/17 08:38; Admin Dose 1 MG; Start 01/30/17 at 09:00 Guaifenesin/ Codeine Phosphate (Robitussin Ac Liquid Cup) 5 ml Q4H PRN GTB COUGH; Start 01/29/17 at 20:00 Haloperidol (Haldol) 5 mg Q6H PRN IM AGITATION Last administered on 01/31/17 17 :53; Admin Dose 5 MG; Start 01/29/17 at 20:00 Lactobacillus Acidophilus (Florajen3 Capsule) 1 each TID NGT Last administered on 02/01/17 08:38; Admin Dose 1 EACH; Start 01/29/17 at 21:00 Lansoprazole (Prevacid) 30 mg DAILY@06 GTB Last administered on 02/01/17 06:03 ; Admin Dose 30 MG; Start 01/30/17 at 06:00 Loperamide HCl (Imodium Cap) 2 mg Q6H PRN GTB DIARRHEA; Start 01/29/17 at 20:30 Metoprolol Tartrate (Lopressor) 5 mg Q6H PRN IV HR > 120 ( IF SBP > 120); Start 01/29/17 at 20:30 Morphine Sulfate (morphine) 2 mg Q4H PRN IV SEVERE PAIN Last administered on 16:33; Admin Dose 2 MG; Start 01/29/17 at 20:30 Multivitamins 30 ml 30 ml DAILY GTB Last administered on 02/01/17 08:37; Admin Dose 30 ML; Start 01/30/17 at 09:00 Meropenem/Sodium Chloride (Merrem 1 Gm/50 ml (Pmx)) 50 ml @ 100 mls/hr Q8 IVPB Last administered on 02/01/17 06:03; Admin Dose 100 MLS/HR; Start 01/29/17 at 22:00 IV Flush (NS 10 ml) 10 ml PRN PRN IV PRN; Start 01/29/17 at 20:30 Nystatin (Nystatin Susp) 5 ml Q12 GTB Last administered on 02/01/17 08:37; Admin Dose 5 ML; Start 01/29/17 at 21:00 Ondansetron HCl (Zofran Inj) 4 mg Q6H PRN IV NAUSEA AND/OR VOMITING; Start 01/29 at 20:30 Oxcarbazepine (Trileptal) 300 mg BID GTB Last administered on 02/01/17 08:37; Admin Dose 300 MG; Start 01/29/17 at 21:00 Acetaminophen/ Hydrocodone Bitart 1 tab 1 tab Q4H PRN GTB PAIN Last administered on 01/30/17 10:31; Admin Dose 1 TAB; Start 01/29/17 at 20:30 Sodium Chloride 1,000 ml @ 30 mls/hr Q24H IV Last administered on 01/31/17 21: 48; Admin Dose 30 MLS/HR; Start 01/29/17 at 20:30 Propofol 100 ml @ 1.851 mls/ hr Q12H IV Last administered on 01/31/17 11:34; Admin Dose 7.403 MLS/HR; Start 01/29/17 at 20:30 Vancomycin HCl (Vancocin) 250 ml @ 125 mls/hr Q24H IVPB Last administered on 21:47; Admin Dose 125 MLS/HR; Start 01/30/17 at 21:00 Quetiapine Fumarate (Seroquel) 50 mg Q6 GTB Last administered on 02/01/17 06:03 ; Admin Dose 50 MG; Start 01/30/17 at 00:00 Clonidine (Catapres) 0.1 mg Q6 GTB ; Start 01/30/17 at 00:00; Status Future Hold Metoprolol Tartrate (Lopressor) 12.5 mg BID GTB Last administered on 02/01/17 08:38; Admin Dose 12.5 MG; Start 01/31/17 at 21:00 HUSAM ARMANDO Feb 01, 2017 12:18
--- NOTE | 2017-02-01 13:08 | CONS ---
Date/Time of Note Date/Time of Note DATE: 02/01/17 TIME: 13:03 Assessment/Plan Assessment/Plan Chief Complaint/Hosp Course IMP: 1.Diastolic CHF 2.HTN 3.Resp failure-chronic s/p trach 4.Pulmonary fibrosis 5. PNA 6.UTI 7. Hypotension-transferred back to ICU. currently improved Recc: -Tele -Continue BB as tolerated -Continue abx's and bronchodilators -Continue abx's and f/u cx data -Follow volume status closely and will give dose of lasix -Continue to clonidine with now improved BP -s/p dose of digoxin with overall improved tachycardia Problems: Consultation Date/Type/Reason Admit Date/Time Jan 29, 2017 at 18:45 Initial Consult Date 01/29/17 Type of Consultation: cardiology Referring Provider: MATTHEW CALDERON MD Exam/Review of Systems Vital Signs Vitals Vital Signs Date Time Temp Pulse Resp B/P Pulse Ox O2 Delivery O2 Flow Rate FiO2 02/01/17 12:30 90 26 118/70 100 02/01/17 12:00 98.3 Mechanical Ventilator 02/01/17 11:47 40 Intake and Output 01/31/17 01/31/17 02/01/17 14:59 22:59 06:59 Intake Total 563.670 ml 710 ml 440 ml Output Total 225 ml 685 ml 570 ml Balance 338.670 ml 25 ml -130 ml Exam Review of Systems: CONSTITUTIONAL: No fevers, chills. PULMONARY: trached CARDIOVASCULAR: No chest pain/palpitations GASTROINTESTINAL: No nausea/vomiting. GENITOURINARY: No hematuria/dysuria. MUSCULOSKELETAL: No myagias/arthalgias. PSYCHIATRIC: The patient denies depression. NEUROLOGIC: generalized weakness Constitutional: other (sleeping, arousable) Psych: no complaints Head: normocephalic ENMT: mucosa pink and moist Neck: other (trached) Cardiovascular: regular rate and rhythm Gastrointestinal: non-tender, soft Musculoskeletal: muscle tone Extremities: edema Neurological: lethargic Results Result Diagram: 01/31/17 0450 02/01/17 0617 Results 24 hrs Laboratory Tests Test 02/01/17 06:17 Absolute Reticulocyte Count 0.025 Percent Reticulocyte Count 0.8 Sodium Level 139 Potassium Level 4.2 Chloride Level 102 Carbon Dioxide Level 35 H Anion Gap 6 L Blood Urea Nitrogen 11 Creatinine 0.48 L Glucose Level 103 Calcium Level 8.7 Ferritin 753.0 H Total Bilirubin 0.0 L Direct Bilirubin 0.00 Indirect Bilirubin 0.0 Aspartate Amino Transf (AST/SGOT) 25 Alanine Aminotransferase (ALT/SGPT) 27 Alkaline Phosphatase 103 Total Protein 6.6 Albumin 2.6 L Globulin 4.00 H Albumin/Globulin Ratio 0.65 Vitamin B12 Level 999 H Folate > 20.0 H Medications Medications Current Medications Miscellaneous Information ([facility]) This patient moss... PRN PRN XX WOUND CARE; Start 01/29/17 at 20:00 Vancomycin HCl (Vancomycin Oral Syringe) 250 mg Q6 PEG Last administered on 02/01 12:24; Admin Dose 250 MG; Start 01/29/17 at 20:00 Acetaminophen (Tylenol Liquid) 650 mg Q6H PRN GTB MILD PAIN/FEVER >= 101; Start 01/29/17 at 20:00 Ascorbic Acid (Vitamin C) 500 mg DAILY GTB Last administered on 02/01/17 08:37 ; Admin Dose 500 MG; Start 01/30/17 at 09:00 Diphenhydramine HCl (Benadryl) 25 mg Q6H PRN IV FOR AGITATION; Start 01/29/17 at 20:00 Diphenhydramine HCl (Benadryl Liquid Cup) 25 mg Q6H PRN GTB ALLERGIC REACTION; Start 01/29/17 at 20:00 Docusate Sodium (Colace Liquid Cup) 100 mg BID GTB Last administered on 08:37; Admin Dose 100 MG; Start 01/29/17 at 21:00 Folic Acid (Folic Acid) 1 mg DAILY GTB Last administered on 02/01/17 08:38; Admin Dose 1 MG; Start 01/30/17 at 09:00 Guaifenesin/ Codeine Phosphate (Robitussin Ac Liquid Cup) 5 ml Q4H PRN GTB COUGH; Start 01/29/17 at 20:00 Haloperidol (Haldol) 5 mg Q6H PRN IM AGITATION Last administered on 01/31/17 17 :53; Admin Dose 5 MG; Start 01/29/17 at 20:00 Lactobacillus Acidophilus (Florajen3 Capsule) 1 each TID NGT Last administered on 02/01/17 12:24; Admin Dose 1 EACH; Start 01/29/17 at 21:00 Lansoprazole (Prevacid) 30 mg DAILY@06 GTB Last administered on 02/01/17 06:03 ; Admin Dose 30 MG; Start 01/30/17 at 06:00 Loperamide HCl (Imodium Cap) 2 mg Q6H PRN GTB DIARRHEA; Start 01/29/17 at 20:30 Metoprolol Tartrate (Lopressor) 5 mg Q6H PRN IV HR > 120 ( IF SBP > 120); Start 01/29/17 at 20:30 Morphine Sulfate (morphine) 2 mg Q4H PRN IV SEVERE PAIN Last administered on 16:33; Admin Dose 2 MG; Start 01/29/17 at 20:30 Multivitamins 30 ml 30 ml DAILY GTB Last administered on 02/01/17 08:37; Admin Dose 30 ML; Start 01/30/17 at 09:00 Meropenem/Sodium Chloride (Merrem 1 Gm/50 ml (Pmx)) 50 ml @ 100 mls/hr Q8 IVPB Last administered on 02/01/17 06:03; Admin Dose 100 MLS/HR; Start 01/29/17 at 22:00 IV Flush (NS 10 ml) 10 ml PRN PRN IV PRN; Start 01/29/17 at 20:30 Nystatin (Nystatin Susp) 5 ml Q12 GTB Last administered on 02/01/17 08:37; Admin Dose 5 ML; Start 01/29/17 at 21:00 Ondansetron HCl (Zofran Inj) 4 mg Q6H PRN IV NAUSEA AND/OR VOMITING; Start 01/29 at 20:30 Oxcarbazepine (Trileptal) 300 mg BID GTB Last administered on 02/01/17 08:37; Admin Dose 300 MG; Start 01/29/17 at 21:00 Acetaminophen/ Hydrocodone Bitart 1 tab 1 tab Q4H PRN GTB PAIN Last administered on 01/30/17 10:31; Admin Dose 1 TAB; Start 01/29/17 at 20:30 Sodium Chloride 1,000 ml @ 30 mls/hr Q24H IV Last administered on 01/31/17 21: 48; Admin Dose 30 MLS/HR; Start 01/29/17 at 20:30 Propofol 100 ml @ 1.851 mls/ hr Q12H IV Last administered on 01/31/17 11:34; Admin Dose 7.403 MLS/HR; Start 01/29/17 at 20:30 Vancomycin HCl (Vancocin) 250 ml @ 125 mls/hr Q24H IVPB Last administered on 21:47; Admin Dose 125 MLS/HR; Start 01/30/17 at 21:00 Quetiapine Fumarate (Seroquel) 50 mg Q6 GTB Last administered on 02/01/17 12:24 ; Admin Dose 50 MG; Start 01/30/17 at 00:00 Clonidine (Catapres) 0.1 mg Q6 GTB ; Start 01/30/17 at 00:00; Status Future Hold Metoprolol Tartrate (Lopressor) 12.5 mg BID GTB Last administered on 02/01/17 08:38; Admin Dose 12.5 MG; Start 01/31/17 at 21:00 Miscellaneous Information (*Rx Drug Level Order Reminder*) 1 ONCE ONCE XX ; Start 02/01/17 at 20:00; Stop 02/01/17 at 20:01 CLOVIS LEON Feb 01, 2017 13:08
[2017-02-01] MEDS ORDERED: FUROSEMIDE 20 MG INJ IV ONE (13:30)
--- NOTE | 2017-02-01 14:17 | PN ---
Date/Time of Note Date/Time of Note DATE: 02/01/17 TIME: 14:10 Assessment/Plan Lines/Catheters IV Catheter Type (from Nrs): Central Line Urinary Cath still in place: Yes Assessment/Plan Assessment/Plan - Chronic respiratory failure on mechanical ventilation with underlying pulmonary fibrosis-VDRF s/p trach 10/09/2016 - per Pulmonary - Continue mechanical ventilation. - Recurrent polymicrobial sepsis- VRE stool/ESBL urine - per ID -Continue broad-spectrum antibiotics. - contact isolation - Anemia- drop in H/H - pREVACID - will consult GI- Dr Connelly notified - continue to monitor H&H. - stool OB - Dysphagia. - s/p PEG placement 10/09/2016 - Possible trach site leak. - Per ENT- pending evaluation - Encephalopathy - Multi Drug Allergy - HLD and fatty liver - mental status change after haloperidol and morphine, lorazepam - Hx erythroderma of unclear etiology in 11/2016, resolved - h/o CARLOS - h/o alcoholism - chronic diastolic HF - diverticulosis, seen on CT at [facility] - severe protein calorie malnutrition - h/o fall and trauma to R foot Subjective 24 Hr Interval Summary Free Text/Dictation awake, alert, answer simple Qs, follows simple commands, dw staff- no new events reported. dwd staff Constitutional: requiring IVF, requiring O2 Respiratory: no complaints Cardiovascular: no complaints Gastrointestinal: no complaints Genitourinary: no complaints Musculoskeletal: no complaints Exam/Review of Systems Vital Signs Vitals Vital Signs Date Time Temp Pulse Resp B/P Pulse Ox O2 Delivery O2 Flow Rate FiO2 02/01/17 13:45 87 17 129/71 100 02/01/17 13:07 40 02/01/17 13:00 Mechanical Ventilator 02/01/17 12:00 98.3 Intake and Output 01/31/17 01/31/17 02/01/17 15:00 23:00 07:00 Intake Total 550.715 ml 680 ml 470 ml Output Total 225 ml 775 ml 480 ml Balance 325.715 ml -95 ml -10 ml Exam Constitutional: alert, other Respiratory: diminished breath sounds Cardiovascular: nl pulses, regular rate and rhythm Gastrointestinal: non-tender, soft Musculoskeletal: nl extremities to inspection Extremities: normal pulses Lymph: nontender Results Result Diagram: 01/31/17 0450 02/01/17 0617 Results 24 hrs Laboratory Tests Test 02/01/17 06:17 Absolute Reticulocyte Count 0.025 Percent Reticulocyte Count 0.8 Sodium Level 139 Potassium Level 4.2 Chloride Level 102 Carbon Dioxide Level 35 H Anion Gap 6 L Blood Urea Nitrogen 11 Creatinine 0.48 L Glucose Level 103 Calcium Level 8.7 Ferritin 753.0 H Total Bilirubin 0.0 L Direct Bilirubin 0.00 Indirect Bilirubin 0.0 Aspartate Amino Transf (AST/SGOT) 25 Alanine Aminotransferase (ALT/SGPT) 27 Alkaline Phosphatase 103 Total Protein 6.6 Albumin 2.6 L Globulin 4.00 H Albumin/Globulin Ratio 0.65 Vitamin B12 Level 999 H Folate > 20.0 H Medications Medications Current Medications Miscellaneous Information (Pending [facility] Order For Wound Care) This patient moss... PRN PRN XX WOUND CARE; Start 01/29/17 at 20:00 Vancomycin HCl (Vancomycin Oral Syringe) 250 mg Q6 PEG Last administered on 02/01 12:24; Admin Dose 250 MG; Start 01/29/17 at 20:00 Acetaminophen (Tylenol Liquid) 650 mg Q6H PRN GTB MILD PAIN/FEVER >= 101; Start 01/29/17 at 20:00 Ascorbic Acid (Vitamin C) 500 mg DAILY GTB Last administered on 02/01/17 08:37 ; Admin Dose 500 MG; Start 01/30/17 at 09:00 Diphenhydramine HCl (Benadryl) 25 mg Q6H PRN IV FOR AGITATION; Start 01/29/17 at 20:00 Diphenhydramine HCl (Benadryl Liquid Cup) 25 mg Q6H PRN GTB ALLERGIC REACTION; Start 01/29/17 at 20:00 Docusate Sodium (Colace Liquid Cup) 100 mg BID GTB Last administered on 08:37; Admin Dose 100 MG; Start 01/29/17 at 21:00 Folic Acid (Folic Acid) 1 mg DAILY GTB Last administered on 02/01/17 08:38; Admin Dose 1 MG; Start 01/30/17 at 09:00 Guaifenesin/ Codeine Phosphate (Robitussin Ac Liquid Cup) 5 ml Q4H PRN GTB COUGH; Start 01/29/17 at 20:00 Haloperidol (Haldol) 5 mg Q6H PRN IM AGITATION Last administered on 01/31/17 17 :53; Admin Dose 5 MG; Start 01/29/17 at 20:00 Lactobacillus Acidophilus (Florajen3 Capsule) 1 each TID NGT Last administered on 02/01/17 12:24; Admin Dose 1 EACH; Start 01/29/17 at 21:00 Lansoprazole (Prevacid) 30 mg DAILY@06 GTB Last administered on 02/01/17 06:03 ; Admin Dose 30 MG; Start 01/30/17 at 06:00 Loperamide HCl (Imodium Cap) 2 mg Q6H PRN GTB DIARRHEA; Start 01/29/17 at 20:30 Metoprolol Tartrate (Lopressor) 5 mg Q6H PRN IV HR > 120 ( IF SBP > 120); Start 01/29/17 at 20:30 Morphine Sulfate (morphine) 2 mg Q4H PRN IV SEVERE PAIN Last administered on 16:33; Admin Dose 2 MG; Start 01/29/17 at 20:30 Multivitamins 30 ml 30 ml DAILY GTB Last administered on 02/01/17 08:37; Admin Dose 30 ML; Start 01/30/17 at 09:00 Meropenem/Sodium Chloride (Merrem 1 Gm/50 ml (Pmx)) 50 ml @ 100 mls/hr Q8 IVPB Last administered on 02/01/17 13:59; Admin Dose 100 MLS/HR; Start 01/29/17 at 22:00 IV Flush (NS 10 ml) 10 ml PRN PRN IV PRN; Start 01/29/17 at 20:30 Nystatin (Nystatin Susp) 5 ml Q12 GTB Last administered on 02/01/17 08:37; Admin Dose 5 ML; Start 01/29/17 at 21:00 Ondansetron HCl (Zofran Inj) 4 mg Q6H PRN IV NAUSEA AND/OR VOMITING; Start 01/29 at 20:30 Oxcarbazepine (Trileptal) 300 mg BID GTB Last administered on 02/01/17 08:37; Admin Dose 300 MG; Start 01/29/17 at 21:00 Acetaminophen/ Hydrocodone Bitart 1 tab 1 tab Q4H PRN GTB PAIN Last administered on 01/30/17 10:31; Admin Dose 1 TAB; Start 01/29/17 at 20:30 Sodium Chloride 1,000 ml @ 30 mls/hr Q24H IV Last administered on 01/31/17 21: 48; Admin Dose 30 MLS/HR; Start 01/29/17 at 20:30 Propofol 100 ml @ 1.851 mls/ hr Q12H IV Last administered on 01/31/17 11:34; Admin Dose 7.403 MLS/HR; Start 01/29/17 at 20:30 Vancomycin HCl (Vancocin) 250 ml @ 125 mls/hr Q24H IVPB Last administered on 21:47; Admin Dose 125 MLS/HR; Start 01/30/17 at 21:00 Quetiapine Fumarate (Seroquel) 50 mg Q6 GTB Last administered on 02/01/17 12:24 ; Admin Dose 50 MG; Start 01/30/17 at 00:00 Clonidine (Catapres) 0.1 mg Q6 GTB ; Start 01/30/17 at 00:00; Status Future Hold Metoprolol Tartrate (Lopressor) 12.5 mg BID GTB Last administered on 02/01/17 08:38; Admin Dose 12.5 MG; Start 01/31/17 at 21:00 Miscellaneous Information (*Rx Drug Level Order Reminder*) 1 ONCE ONCE XX ; Start 02/01/17 at 20:00; Stop 02/01/17 at 20:01 CHARITY DUKE Feb 01, 2017 14:17
--- NOTE | 2017-02-01 16:19 | CONS ---
Date/Time of Note Date/Time of Note DATE: 02/01/17 TIME: 16:18 Assessment/Plan Assessment/Plan Chief Complaint/Hosp Course This is a 71-year-old male who is in the intensive care unit [facility] in shock, septic presumably secondary to pneumonia. She was transferred from [facility], with mental status changes precipitous change in his overall clinical condition. Patient is chronically PEG trach. Current medical history significant for diastolic congestive heart failure, respiratory failure chronically, anemia, end-stage renal disease on hemodialysis , fluid and electrolyte abnormalities, questionable history of delirium, recent history of recurrent hospitalizations, hyperlipidemia, malnutrition and wasting syndrome. Patient is full code decision-maker is his at the bedside patient has children but they are not in the state who have been in contact primarily by email. They are aware that he is critically ill I have had extensive conversation with patient's she is a decision occur only. Background social history has been discussed her hopes desires acceptable quality of life have been reviewed. She does not want him to live her quality of life, she does not want him to have cardiopulmonary resuscitation indication preferences 1 1 has spoken about level of care prior to this catastrophic change in his condition he does not want to live by artificial means. Goals of care been discussed and that is to keep him comfortable without advanced cardiac life support his prognosis is grave.. Patient's will consider comfort measures she requests additional time with him. Problems: Consultation Date/Type/Reason Admit Date/Time Jan 29, 2017 at 18:45 Initial Consult Date 01/29/17 Type of Consultation: Palliative care Referring Provider: MATTHEW CALDERON MD 24 HR Interval Summary Free Text/Dictation The dictation for this patient is incorrect. Disregard this dictation that was done by myself today 02/01/2017 CODE STATUS has been changed back to full code. Exam/Review of Systems Vital Signs Vitals Vital Signs Date Time Temp Pulse Resp B/P Pulse Ox O2 Delivery O2 Flow Rate FiO2 02/01/17 13:45 87 17 129/71 100 02/01/17 13:07 40 02/01/17 13:00 Mechanical Ventilator 02/01/17 12:00 98.3 Intake and Output 01/31/17 01/31/17 02/01/17 15:00 23:00 07:00 Intake Total 550.715 ml 680 ml 470 ml Output Total 225 ml 775 ml 480 ml Balance 325.715 ml -95 ml -10 ml Results Result Diagram: 01/31/17 0450 02/01/17 0617 Results 24 hrs Laboratory Tests Test 02/01/17 06:17 Absolute Reticulocyte Count 0.025 Percent Reticulocyte Count 0.8 Sodium Level 139 Potassium Level 4.2 Chloride Level 102 Carbon Dioxide Level 35 H Anion Gap 6 L Blood Urea Nitrogen 11 Creatinine 0.48 L Glucose Level 103 Calcium Level 8.7 Ferritin 753.0 H Total Bilirubin 0.0 L Direct Bilirubin 0.00 Indirect Bilirubin 0.0 Aspartate Amino Transf (AST/SGOT) 25 Alanine Aminotransferase (ALT/SGPT) 27 Alkaline Phosphatase 103 Total Protein 6.6 Albumin 2.6 L Globulin 4.00 H Albumin/Globulin Ratio 0.65 Vitamin B12 Level 999 H Folate > 20.0 H Medications Medications Current Medications Miscellaneous Information ([facility]) This patient moss... PRN PRN XX WOUND CARE; Start 01/29/17 at 20:00 Vancomycin HCl (Vancomycin Oral Syringe) 250 mg Q6 PEG Last administered on 02/01 12:24; Admin Dose 250 MG; Start 01/29/17 at 20:00 Acetaminophen (Tylenol Liquid) 650 mg Q6H PRN GTB MILD PAIN/FEVER >= 101; Start 01/29/17 at 20:00 Ascorbic Acid (Vitamin C) 500 mg DAILY GTB Last administered on 02/01/17 08:37 ; Admin Dose 500 MG; Start 01/30/17 at 09:00 Diphenhydramine HCl (Benadryl) 25 mg Q6H PRN IV FOR AGITATION; Start 01/29/17 at 20:00 Diphenhydramine HCl (Benadryl Liquid Cup) 25 mg Q6H PRN GTB ALLERGIC REACTION; Start 01/29/17 at 20:00 Docusate Sodium (Colace Liquid Cup) 100 mg BID GTB Last administered on 08:37; Admin Dose 100 MG; Start 01/29/17 at 21:00 Folic Acid (Folic Acid) 1 mg DAILY GTB Last administered on 02/01/17 08:38; Admin Dose 1 MG; Start 01/30/17 at 09:00 Guaifenesin/ Codeine Phosphate (Robitussin Ac Liquid Cup) 5 ml Q4H PRN GTB COUGH; Start 01/29/17 at 20:00 Haloperidol (Haldol) 5 mg Q6H PRN IM AGITATION Last administered on 01/31/17 17 :53; Admin Dose 5 MG; Start 01/29/17 at 20:00 Lactobacillus Acidophilus (Florajen3 Capsule) 1 each TID NGT Last administered on 02/01/17 12:24; Admin Dose 1 EACH; Start 01/29/17 at 21:00 Lansoprazole (Prevacid) 30 mg DAILY@06 GTB Last administered on 02/01/17 06:03 ; Admin Dose 30 MG; Start 01/30/17 at 06:00 Loperamide HCl (Imodium Cap) 2 mg Q6H PRN GTB DIARRHEA; Start 01/29/17 at 20:30 Metoprolol Tartrate (Lopressor) 5 mg Q6H PRN IV HR > 120 ( IF SBP > 120); Start 01/29/17 at 20:30 Morphine Sulfate (morphine) 2 mg Q4H PRN IV SEVERE PAIN Last administered on 16:33; Admin Dose 2 MG; Start 01/29/17 at 20:30 Multivitamins 30 ml 30 ml DAILY GTB Last administered on 02/01/17 08:37; Admin Dose 30 ML; Start 01/30/17 at 09:00 Meropenem/Sodium Chloride (Merrem 1 Gm/50 ml (Pmx)) 50 ml @ 100 mls/hr Q8 IVPB Last administered on 02/01/17 13:59; Admin Dose 100 MLS/HR; Start 01/29/17 at 22:00 IV Flush (NS 10 ml) 10 ml PRN PRN IV PRN; Start 01/29/17 at 20:30 Nystatin (Nystatin Susp) 5 ml Q12 GTB Last administered on 02/01/17 08:37; Admin Dose 5 ML; Start 01/29/17 at 21:00 Ondansetron HCl (Zofran Inj) 4 mg Q6H PRN IV NAUSEA AND/OR VOMITING; Start 01/29 at 20:30 Oxcarbazepine (Trileptal) 300 mg BID GTB Last administered on 02/01/17 08:37; Admin Dose 300 MG; Start 01/29/17 at 21:00 Acetaminophen/ Hydrocodone Bitart 1 tab 1 tab Q4H PRN GTB PAIN Last administered on 01/30/17 10:31; Admin Dose 1 TAB; Start 01/29/17 at 20:30 Sodium Chloride 1,000 ml @ 30 mls/hr Q24H IV Last administered on 01/31/17 21: 48; Admin Dose 30 MLS/HR; Start 01/29/17 at 20:30 Propofol 100 ml @ 1.851 mls/ hr Q12H IV Last administered on 01/31/17 11:34; Admin Dose 7.403 MLS/HR; Start 01/29/17 at 20:30 Vancomycin HCl (Vancocin) 250 ml @ 125 mls/hr Q24H IVPB Last administered on 21:47; Admin Dose 125 MLS/HR; Start 01/30/17 at 21:00 Quetiapine Fumarate (Seroquel) 50 mg Q6 GTB Last administered on 02/01/17 12:24 ; Admin Dose 50 MG; Start 01/30/17 at 00:00 Clonidine (Catapres) 0.1 mg Q6 GTB ; Start 01/30/17 at 00:00; Status Future Hold Metoprolol Tartrate (Lopressor) 12.5 mg BID GTB Last administered on 02/01/17 08:38; Admin Dose 12.5 MG; Start 01/31/17 at 21:00 Miscellaneous Information (*Rx Drug Level Order Reminder*) 1 ONCE ONCE XX ; Start 02/01/17 at 20:00; Stop 02/01/17 at 20:01 HUSAM ARMANDO Feb 01, 2017 16:19
--- NOTE | 2017-02-01 17:26 | CONS ---
Date/Time of Note Date/Time of Note DATE: 02/01/17 TIME: 17:25 Assessment/Plan Assessment/Plan Chief Complaint/Hosp Course 71-year-old male with history of pulmonary fibrosis, chronic CHF, dysphagia status post PEG, fatty liver, history of alcoholism, admitted to intensive care unit for shortness of breath. Patient was found to have leaking tracheostomy tube which needs to be evaluated by the ENT surgeon. GI consult was called in for the anemia. Case discussed with the staff no GI bleeding G-tube aspirate was negative for blood no hematochezia or melena. Patient denies of any abdominal pain no nausea no vomiting. Problems: Additional Assessment/Plan Assessment/Plan Additional Assessment/Plan 1. Vent dependent respiratory failure secondary to pulmonary fibrosis 2. Anemia most probably related to chronic disease, given the history of GI bleeding in the past will send stool for occult blood and anemia workup. 3. CHF 4. UTI 5. Pneumonia 6. Leaking tracheostomy site 7. Fatty liver 8. Alcoholism Plan Anemia workup, so far negative. B12 folic acid and ferritin all within normal limit. Stool for occult blood Continue G-tube feeding with aspiration precaution Tracheostomy tube needs to be changed by the ENT surgeon Continue all supportive care Consultation Date/Type/Reason Admit Date/Time Jan 29, 2017 at 18:45 Initial Consult Date 01/29/17 Type of Consultation: Palliative care Referring Provider: MATTHEW CALDERON MD 24 HR Interval Summary Free Text/Dictation Abdominal pain no nausea no vomiting Constitutional: no complaints Exam/Review of Systems Vital Signs Vitals Vital Signs Date Time Temp Pulse Resp B/P Pulse Ox O2 Delivery O2 Flow Rate FiO2 02/01/17 16:57 103 27 100 40 02/01/17 16:15 125/69 Mechanical Ventilator 02/01/17 12:00 98.3 Intake and Output 01/31/17 01/31/17 02/01/17 15:00 23:00 07:00 Intake Total 550.715 ml 680 ml 470 ml Output Total 225 ml 775 ml 480 ml Balance 325.715 ml -95 ml -10 ml Exam Constitutional: alert, oriented, well developed Psych: nl mood/affect, no complaints ENMT: nl external ears & nose, nl lips & teeth, nl nasal mucosa & septum Respiratory: other (Recent is on vent) Cardiovascular: nl pulses, regular rate and rhythm Gastrointestinal: nl liver, spleen, non-tender, soft Neurological: SMOG TECHNICIAN II-XII intact, nl mental status, nl speech, nl strength Results Result Diagram: 01/31/17 0450 02/01/17 0617 Results 24 hrs Laboratory Tests Test 02/01/17 06:17 Absolute Reticulocyte Count 0.025 Percent Reticulocyte Count 0.8 Sodium Level 139 Potassium Level 4.2 Chloride Level 102 Carbon Dioxide Level 35 H Anion Gap 6 L Blood Urea Nitrogen 11 Creatinine 0.48 L Glucose Level 103 Calcium Level 8.7 Ferritin 753.0 H Total Bilirubin 0.0 L Direct Bilirubin 0.00 Indirect Bilirubin 0.0 Aspartate Amino Transf (AST/SGOT) 25 Alanine Aminotransferase (ALT/SGPT) 27 Alkaline Phosphatase 103 Total Protein 6.6 Albumin 2.6 L Globulin 4.00 H Albumin/Globulin Ratio 0.65 Vitamin B12 Level 999 H Folate > 20.0 H Medications Medications Current Medications Miscellaneous Information (Pending [facility] Order For Wound Care) This patient moss... PRN PRN XX WOUND CARE; Start 01/29/17 at 20:00 Vancomycin HCl (Vancomycin Oral Syringe) 250 mg Q6 PEG Last administered on 02/01 12:24; Admin Dose 250 MG; Start 01/29/17 at 20:00 Acetaminophen (Tylenol Liquid) 650 mg Q6H PRN GTB MILD PAIN/FEVER >= 101; Start 01/29/17 at 20:00 Ascorbic Acid (Vitamin C) 500 mg DAILY GTB Last administered on 02/01/17 08:37 ; Admin Dose 500 MG; Start 01/30/17 at 09:00 Diphenhydramine HCl (Benadryl) 25 mg Q6H PRN IV FOR AGITATION; Start 01/29/17 at 20:00 Diphenhydramine HCl (Benadryl Liquid Cup) 25 mg Q6H PRN GTB ALLERGIC REACTION; Start 01/29/17 at 20:00 Docusate Sodium (Colace Liquid Cup) 100 mg BID GTB Last administered on 08:37; Admin Dose 100 MG; Start 01/29/17 at 21:00 Folic Acid (Folic Acid) 1 mg DAILY GTB Last administered on 02/01/17 08:38; Admin Dose 1 MG; Start 01/30/17 at 09:00 Guaifenesin/ Codeine Phosphate (Robitussin Ac Liquid Cup) 5 ml Q4H PRN GTB COUGH; Start 01/29/17 at 20:00 Haloperidol (Haldol) 5 mg Q6H PRN IM AGITATION Last administered on 01/31/17 17 :53; Admin Dose 5 MG; Start 01/29/17 at 20:00 Lactobacillus Acidophilus (Florajen3 Capsule) 1 each TID NGT Last administered on 02/01/17 12:24; Admin Dose 1 EACH; Start 01/29/17 at 21:00 Lansoprazole (Prevacid) 30 mg DAILY@06 GTB Last administered on 02/01/17 06:03 ; Admin Dose 30 MG; Start 01/30/17 at 06:00 Loperamide HCl (Imodium Cap) 2 mg Q6H PRN GTB DIARRHEA; Start 01/29/17 at 20:30 Metoprolol Tartrate (Lopressor) 5 mg Q6H PRN IV HR > 120 ( IF SBP > 120); Start 01/29/17 at 20:30 Morphine Sulfate (morphine) 2 mg Q4H PRN IV SEVERE PAIN Last administered on 16:33; Admin Dose 2 MG; Start 01/29/17 at 20:30 Multivitamins 30 ml 30 ml DAILY GTB Last administered on 02/01/17 08:37; Admin Dose 30 ML; Start 01/30/17 at 09:00 Meropenem/Sodium Chloride (Merrem 1 Gm/50 ml (Pmx)) 50 ml @ 100 mls/hr Q8 IVPB Last administered on 02/01/17 13:59; Admin Dose 100 MLS/HR; Start 01/29/17 at 22:00 IV Flush (NS 10 ml) 10 ml PRN PRN IV PRN; Start 01/29/17 at 20:30 Nystatin (Nystatin Susp) 5 ml Q12 GTB Last administered on 02/01/17 08:37; Admin Dose 5 ML; Start 01/29/17 at 21:00 Ondansetron HCl (Zofran Inj) 4 mg Q6H PRN IV NAUSEA AND/OR VOMITING; Start 01/29 at 20:30 Oxcarbazepine (Trileptal) 300 mg BID GTB Last administered on 02/01/17 08:37; Admin Dose 300 MG; Start 01/29/17 at 21:00 Acetaminophen/ Hydrocodone Bitart 1 tab 1 tab Q4H PRN GTB PAIN Last administered on 01/30/17 10:31; Admin Dose 1 TAB; Start 01/29/17 at 20:30 Sodium Chloride 1,000 ml @ 30 mls/hr Q24H IV Last administered on 01/31/17 21: 48; Admin Dose 30 MLS/HR; Start 01/29/17 at 20:30 Propofol 100 ml @ 1.851 mls/ hr Q12H IV Last administered on 01/31/17 11:34; Admin Dose 7.403 MLS/HR; Start 01/29/17 at 20:30 Vancomycin HCl (Vancocin) 250 ml @ 125 mls/hr Q24H IVPB Last administered on 21:47; Admin Dose 125 MLS/HR; Start 01/30/17 at 21:00 Quetiapine Fumarate (Seroquel) 50 mg Q6 GTB Last administered on 02/01/17 12:24 ; Admin Dose 50 MG; Start 01/30/17 at 00:00 Clonidine (Catapres) 0.1 mg Q6 GTB ; Start 01/30/17 at 00:00; Status Future Hold Metoprolol Tartrate (Lopressor) 12.5 mg BID GTB Last administered on 02/01/17 08:38; Admin Dose 12.5 MG; Start 01/31/17 at 21:00 Miscellaneous Information (*Rx Drug Level Order Reminder*) 1 ONCE ONCE XX ; Start 02/01/17 at 20:00; Stop 02/01/17 at 20:01 KASHMIR NOVAK MD Feb 01, 2017 17:26
--- NOTE | 2017-02-01 19:34 | CONS ---
Date/Time of Note Date/Time of Note DATE: 02/01/17 TIME: 19:32 Assessment/Plan Assessment/Plan Chief Complaint/Hosp Course assessment/impression: - possible, recurrent sepsis - probable colonization of the resp tract by Gram negative bacteria - underlying pulmonary fibrosis - mental status change after haloperidol and morphine, now stable - h/o mental status change after lorazepam at [facility] - funguria, minimal pyuria - C. diff colitis 01/25/2017 - VDRF s/p trach 10/09/2016 - dysphagia s/p PEG placement 10/09/2016 - erythroderma of unclear etiology in 11/2016, resolved - h/o CARLOS - encephalopathy, improved - s/p recurrent sepsis due to HCAP and UTI - h/o HCAP due to MDR acinetobacter and ESBL E. Coli - h/o colonization with ESBL and CRE - h/o recurrent UTI due to ESBL E. Coli - h/o thrush - h/o bacteremia 10/28/2016 due to enterococcus faecium. Midline was dc'd - h/o bacteremia 12/21/2016 due to enterococcus faecalis - s/p severe sepsis due to UTI, prob aspiration after hematemesis and multiple intubation events, and HCAP - s/p acute UGIB of unclear etiology; s/p EGD 10/01/2016 showing no active bleeding site - HLD and fatty liver - h/o alcoholism - chronic diastolic HF - diverticulosis, seen on CT at [facility] - severe protein calorie malnutrition - h/o fall and trauma to R foot recommendations: - pending results: final blood (NTD) and resp (GNR) cultures - continue empiric IV vancomycin and meropenem (01/29/2017-); plan to de-escalate soon - continue pGT vancomcyin for C diff colitis. No metronidazole to avoid neurotoxicity - enteric contact isolation for C diff colitis Management d/w Pt's RN, Pt's , Charge Nurse Carmita who assisted with translation, and Dr. Sarabia Critical care time spent: 35 min Problems: Consultation Date/Type/Reason Admit Date/Time Jan 29, 2017 at 18:45 Initial Consult Date 01/29/17 Type of Consultation: Infectious Disease Referring Provider: MATTHEW CALDERON MD 24 HR Interval Summary Free Text/Dictation Off Diprivan since yesterday. Alert. Slept better last night. C/o mild upper back/shoulder pain. Nods no to SOB, n/v. upset re: lack of communications with other providers, partly due to language barrier. Subjective hx not possible: pt non-verbal Exam/Review of Systems Vital Signs Vitals Vital Signs Date Time Temp Pulse Resp B/P Pulse Ox O2 Delivery O2 Flow Rate FiO2 02/01/17 18:45 111 25 112/65 100 02/01/17 18:15 Mechanical Ventilator 02/01/17 16:57 40 02/01/17 16:00 98.1 Intake and Output 01/31/17 01/31/17 02/01/17 15:00 23:00 07:00 Intake Total 550.715 ml 680 ml 470 ml Output Total 225 ml 775 ml 480 ml Balance 325.715 ml -95 ml -10 ml Exam Constitutional: alert, frail, non-verbal Psych: nl mood/affect Head: atraumatic, normocephalic, other (temporal wasting noted) Eyes: nl conjunctiva, nl lids Neck: other (tracheostomy in place with white secretions) Respiratory: diminished breath sounds, No wheezing Cardiovascular: nl pulses, other (tachycardic, regular rhythm) Gastrointestinal: non-tender, other (G-tube intact; Flexiseal with liquid stool ), soft Genitourinary - Male: other (Robin catheter present) Musculoskeletal: nl extremities to inspection Extremities: normal pulses, No edema Skin: nl turgor, other (See nurses note for details) Results Result Diagram: 01/31/17 0450 02/01/17 0617 Results 24 hrs Laboratory Tests Test 02/01/17 06:17 Absolute Reticulocyte Count 0.025 Percent Reticulocyte Count 0.8 Sodium Level 139 Potassium Level 4.2 Chloride Level 102 Carbon Dioxide Level 35 H Anion Gap 6 L Blood Urea Nitrogen 11 Creatinine 0.48 L Glucose Level 103 Calcium Level 8.7 Ferritin 753.0 H Total Bilirubin 0.0 L Direct Bilirubin 0.00 Indirect Bilirubin 0.0 Aspartate Amino Transf (AST/SGOT) 25 Alanine Aminotransferase (ALT/SGPT) 27 Alkaline Phosphatase 103 Total Protein 6.6 Albumin 2.6 L Globulin 4.00 H Albumin/Globulin Ratio 0.65 Vitamin B12 Level 999 H Folate > 20.0 H Medications Medications Current Medications Miscellaneous Information (Pending Santyl Order For Wound Care) This patient moss... PRN PRN XX WOUND CARE; Start 01/29/17 at 20:00 Vancomycin HCl (Vancomycin Oral Syringe) 250 mg Q6 PEG Last administered on 02/01 18:09; Admin Dose 250 MG; Start 01/29/17 at 20:00 Acetaminophen (Tylenol Liquid) 650 mg Q6H PRN GTB MILD PAIN/FEVER >= 101; Start 01/29/17 at 20:00 Ascorbic Acid (Vitamin C) 500 mg DAILY GTB Last administered on 02/01/17 08:37 ; Admin Dose 500 MG; Start 01/30/17 at 09:00 Diphenhydramine HCl (Benadryl) 25 mg Q6H PRN IV FOR AGITATION; Start 01/29/17 at 20:00 Diphenhydramine HCl (Benadryl Liquid Cup) 25 mg Q6H PRN GTB ALLERGIC REACTION; Start 01/29/17 at 20:00 Docusate Sodium (Colace Liquid Cup) 100 mg BID GTB Last administered on 08:37; Admin Dose 100 MG; Start 01/29/17 at 21:00 Folic Acid (Folic Acid) 1 mg DAILY GTB Last administered on 02/01/17 08:38; Admin Dose 1 MG; Start 01/30/17 at 09:00 Guaifenesin/ Codeine Phosphate (Robitussin Ac Liquid Cup) 5 ml Q4H PRN GTB COUGH; Start 01/29/17 at 20:00 Haloperidol (Haldol) 5 mg Q6H PRN IM AGITATION Last administered on 01/31/17 17 :53; Admin Dose 5 MG; Start 01/29/17 at 20:00 Lactobacillus Acidophilus (Florajen3 Capsule) 1 each TID NGT Last administered on 02/01/17 12:24; Admin Dose 1 EACH; Start 01/29/17 at 21:00 Lansoprazole (Prevacid) 30 mg DAILY@06 GTB Last administered on 02/01/17 06:03 ; Admin Dose 30 MG; Start 01/30/17 at 06:00 Loperamide HCl (Imodium Cap) 2 mg Q6H PRN GTB DIARRHEA; Start 01/29/17 at 20:30 Metoprolol Tartrate (Lopressor) 5 mg Q6H PRN IV HR > 120 ( IF SBP > 120); Start 01/29/17 at 20:30 Morphine Sulfate (morphine) 2 mg Q4H PRN IV SEVERE PAIN Last administered on 16:33; Admin Dose 2 MG; Start 01/29/17 at 20:30 Multivitamins 30 ml 30 ml DAILY GTB Last administered on 02/01/17 08:37; Admin Dose 30 ML; Start 01/30/17 at 09:00 Meropenem/Sodium Chloride (Merrem 1 Gm/50 ml (Pmx)) 50 ml @ 100 mls/hr Q8 IVPB Last administered on 02/01/17 13:59; Admin Dose 100 MLS/HR; Start 01/29/17 at 22:00 IV Flush (NS 10 ml) 10 ml PRN PRN IV PRN; Start 01/29/17 at 20:30 Nystatin (Nystatin Susp) 5 ml Q12 GTB Last administered on 02/01/17 08:37; Admin Dose 5 ML; Start 01/29/17 at 21:00 Ondansetron HCl (Zofran Inj) 4 mg Q6H PRN IV NAUSEA AND/OR VOMITING; Start 01/29 at 20:30 Oxcarbazepine (Trileptal) 300 mg BID GTB Last administered on 02/01/17 08:37; Admin Dose 300 MG; Start 01/29/17 at 21:00 Acetaminophen/ Hydrocodone Bitart 1 tab 1 tab Q4H PRN GTB PAIN Last administered on 01/30/17 10:31; Admin Dose 1 TAB; Start 01/29/17 at 20:30 Sodium Chloride 1,000 ml @ 30 mls/hr Q24H IV Last administered on 01/31/17 21: 48; Admin Dose 30 MLS/HR; Start 01/29/17 at 20:30 Propofol 100 ml @ 1.851 mls/ hr Q12H IV Last administered on 01/31/17 11:34; Admin Dose 7.403 MLS/HR; Start 01/29/17 at 20:30 Vancomycin HCl (Vancocin) 250 ml @ 125 mls/hr Q24H IVPB Last administered on 21:47; Admin Dose 125 MLS/HR; Start 01/30/17 at 21:00 Quetiapine Fumarate (Seroquel) 50 mg Q6 GTB Last administered on 02/01/17 18:09 ; Admin Dose 50 MG; Start 01/30/17 at 00:00 Clonidine (Catapres) 0.1 mg Q6 GTB ; Start 01/30/17 at 00:00; Status Future Hold Metoprolol Tartrate (Lopressor) 12.5 mg BID GTB Last administered on 02/01/17 08:38; Admin Dose 12.5 MG; Start 01/31/17 at 21:00 Miscellaneous Information (*Rx Drug Level Order Reminder*) 1 ONCE ONCE XX ; Start 02/01/17 at 20:00; Stop 02/01/17 at 20:01 Procedures Procedures CXR 01/30/2017: 1. Chronic-appearing interstitial changes with superimposed interstitial edema versus pneumonia. No significant interval change. 2. Tracheostomy tube in place. RODRIGUEZ GLOVER NP Feb 01, 2017 19:34
[2017-02-01] MEDS: PROPOFOL 100 ML IV SCH (20:17)
[2017-02-01] MEDS: VANCOMYCIN 1 GM in NS 250 ML IVPB SCH (20:52)
[2017-02-02] VITALS (47 sets, daily range): BP systolic 103–142; BP diastolic 54–87; PULSE 81–109; RESP 14–31
[2017-02-02] MEDS: QUETIAPINE 25 MG TAB GTB SCH ×4 (00:20→17:37)
[2017-02-02] MEDS: VANCOMYCIN HCL 250 MG/5ML POSYG PEG SCH ×4 (00:20→17:38)
[2017-02-02] MEDS: IPRATROPIUM (HFA) 12.9 GM INHALER INH SCH ×6 (01:11→20:33)
[2017-02-02] MEDS: ALBUTEROL 18 GM INHALER INH SCH ×6 (01:12→20:33)
[2017-02-02] MEDS: MEROPENEM 1 GM/50ML(PMX) 50 ML IVPB SCH ×2 (05:01→15:21)
[2017-02-02] MEDS: SOD CHLORIDE 0.9% 1,000 ML IV SCH (05:01)
[2017-02-02] MEDS: LANSOPRAZOLE 30 MG CAP GTB SCH (05:01)
[2017-02-02 05:12] LABS: ALBUMIN 2.7 g/dl (3.3-4.9); ALBUMIN/GLOBULIN RATIO 0.64; CALCIUM 8.9 mg/dl (8.4-10.2); CREATININE 0.47 mg/dl (0.61-1.24); POTASSIUM 3.7 mmol/L (3.5-5.1); TOTAL PROTEIN 6.9 g/dl (6.1-8.1)
[2017-02-02] MEDS: PROPOFOL 100 ML IV SCH ×2 (08:30→20:30)
[2017-02-02] MEDS: DOCUSATE SODIUM 10 MG/ML (10ML CUP) GTB SCH ×2 (09:00→20:48)
[2017-02-02] MEDS: NYSTATIN SUSP 5 ML CUP GTB SCH ×2 (09:11→20:48)
[2017-02-02] MEDS: ASCORBIC ACID 500 MG TAB GTB SCH (09:11)
[2017-02-02] MEDS: FOLIC ACID 1 MG TAB GTB SCH (09:12)
[2017-02-02] MEDS: METOPROLOL 25 MG TAB GTB SCH ×2 (09:12→20:48)
[2017-02-02] MEDS: OXCARBAZEPINE 300 MG TAB GTB SCH ×2 (09:12→20:48)
[2017-02-02] MEDS: BALSAM PERU/CASTOR OIL 60 GM TUBE TOP SCH ×2 (09:13→20:54)
[2017-02-02] MEDS: MULTIVITAMINS 30 ML CUP GTB SCH (09:13)
[2017-02-02] MEDS: L ACIDOPHIL/B LACTIS/B LONGUM CAPSULE NGT SCH ×3 (09:28→20:48)
--- NOTE | 2017-02-02 09:51 | CONS ---
Date/Time of Note Date/Time of Note DATE: 02/02/17 TIME: 09:49 Consult Date/Type/Reason Admit Date/Time Jan 29, 2017 at 18:45 Initial Consult Date 01/29/17 Type of Consultation: Pulm Ordering Provider: MATTHEW CALDERON MD Subjective Awake alert and oriented on mechanical ventilation. No vasopressors. Objective Vital Signs Date Time Temp Pulse Resp B/P Pulse Ox O2 Delivery O2 Flow Rate FiO2 02/02/17 08:00 109 27 130/75 88 02/02/17 08:00 40 02/02/17 07:00 Mechanical Ventilator 02/02/17 04:00 99.2 Intake and Output 02/01/17 02/01/17 02/02/17 15:00 23:00 07:00 Intake Total 660 ml 730 ml 440 ml Output Total 450 ml 1950 ml 420 ml Balance 210 ml -1220 ml 20 ml Exam OBJECTIVE DATA: VITAL SIGNS: Elderly gentleman appears comfortable at rest NECK: Trach site clean. CARDIAC: Sounds S1, S2. No added sounds or murmurs. CHEST: Diminished air entry bilaterally. ABDOMEN: Soft, nontender. No guarding or rebound. EXTREMITIES: No cyanosis, clubbing or edema. NEUROLOGIC: Generalized weakness. Results/Medications Result Diagram: 01/31/17 0450 02/02/17 0400 Results 24 hrs Laboratory Tests Test 02/01/17 20:00 02/02/17 04:00 Vancomycin Level Trough 13.3 Sodium Level 136 Potassium Level 3.7 Chloride Level 96 L Carbon Dioxide Level 38 H Anion Gap 6 L Blood Urea Nitrogen 11 Creatinine 0.47 L Glucose Level 109 Calcium Level 8.9 Total Bilirubin 0.0 L Direct Bilirubin 0.00 Indirect Bilirubin 0.0 Aspartate Amino Transf (AST/SGOT) 26 Alanine Aminotransferase (ALT/SGPT) 25 Alkaline Phosphatase 109 Total Protein 6.9 Albumin 2.7 L Globulin 4.20 H Albumin/Globulin Ratio 0.64 Medications Current Medications Miscellaneous Information [facility] This patient moss... PRN PRN XX WOUND CARE; Start 01/29/17 at 20:00 Vancomycin HCl (Vancomycin Oral Syringe) 250 mg Q6 PEG Last administered on 02/02t 05:14; Admin Dose 250 MG; Start 01/29/17 at 20:00 Acetaminophen (Tylenol Liquid) 650 mg Q6H PRN GTB MILD PAIN/FEVER >= 101; Start 01/29/17 at 20:00 Ascorbic Acid (Vitamin C) 500 mg DAILY GTB Last administered on 02/02/17 09:11 ; Admin Dose 500 MG; Start 01/30/17 at 09:00 Diphenhydramine HCl (Benadryl) 25 mg Q6H PRN IV FOR AGITATION; Start 01/29/17 at 20:00 Diphenhydramine HCl (Benadryl Liquid Cup) 25 mg Q6H PRN GTB ALLERGIC REACTION; Start 01/29/17 at 20:00 Docusate Sodium (Colace Liquid Cup) 100 mg BID GTB Last administered on 08:37; Admin Dose 100 MG; Start 01/29/17 at 21:00 Folic Acid (Folic Acid) 1 mg DAILY GTB Last administered on 02/02/17 09:12; Admin Dose 1 MG; Start 01/30/17 at 09:00 Guaifenesin/ Codeine Phosphate (Robitussin Ac Liquid Cup) 5 ml Q4H PRN GTB COUGH; Start 01/29/17 at 20:00 Haloperidol (Haldol) 5 mg Q6H PRN IM AGITATION Last administered on 01/31/17 17 :53; Admin Dose 5 MG; Start 01/29/17 at 20:00 Lactobacillus Acidophilus (Florajen3 Capsule) 1 each TID NGT Last administered on 02/02/17 09:28; Admin Dose 1 EACH; Start 01/29/17 at 21:00 Lansoprazole (Prevacid) 30 mg DAILY@06 GTB Last administered on 02/02/17 05:01 ; Admin Dose 30 MG; Start 01/30/17 at 06:00 Loperamide HCl (Imodium Cap) 2 mg Q6H PRN GTB DIARRHEA; Start 01/29/17 at 20:30 Metoprolol Tartrate (Lopressor) 5 mg Q6H PRN IV HR > 120 ( IF SBP > 120); Start 01/29/17 at 20:30 Morphine Sulfate (morphine) 2 mg Q4H PRN IV SEVERE PAIN Last administered on 16:33; Admin Dose 2 MG; Start 01/29/17 at 20:30 Multivitamins 30 ml 30 ml DAILY GTB Last administered on 02/02/17 09:13; Admin Dose 30 ML; Start 01/30/17 at 09:00 Meropenem/Sodium Chloride (Merrem 1 Gm/50 ml (Pmx)) 50 ml @ 100 mls/hr Q8 IVPB Last administered on 02/02/17 05:01; Admin Dose 100 MLS/HR; Start 01/29/17 at 22:00 IV Flush (NS 10 ml) 10 ml PRN PRN IV PRN; Start 01/29/17 at 20:30 Nystatin (Nystatin Susp) 5 ml Q12 GTB Last administered on 02/02/17 09:11; Admin Dose 5 ML; Start 01/29/17 at 21:00 Ondansetron HCl (Zofran Inj) 4 mg Q6H PRN IV NAUSEA AND/OR VOMITING; Start 01/29 at 20:30 Oxcarbazepine (Trileptal) 300 mg BID GTB Last administered on 02/02/17 09:12; Admin Dose 300 MG; Start 01/29/17 at 21:00 Acetaminophen/ Hydrocodone Bitart 1 tab 1 tab Q4H PRN GTB PAIN Last administered on 01/30/17 10:31; Admin Dose 1 TAB; Start 01/29/17 at 20:30 Sodium Chloride 1,000 ml @ 30 mls/hr Q24H IV Last administered on 02/02/17 05: 01; Admin Dose 30 MLS/HR; Start 01/29/17 at 20:30 Propofol 100 ml @ 1.851 mls/ hr Q12H IV Last administered on 01/31/17 11:34; Admin Dose 7.403 MLS/HR; Start 01/29/17 at 20:30 Vancomycin HCl (Vancocin) 250 ml @ 125 mls/hr Q24H IVPB Last administered on 20:52; Admin Dose 125 MLS/HR; Start 01/30/17 at 21:00 Quetiapine Fumarate (Seroquel) 50 mg Q6 GTB Last administered on 02/02/17 05:00 ; Admin Dose 50 MG; Start 01/30/17 at 00:00 Clonidine (Catapres) 0.1 mg Q6 GTB ; Start 01/30/17 at 00:00; Status Future Hold Metoprolol Tartrate (Lopressor) 12.5 mg BID GTB Last administered on 02/02/17t 09:12; Admin Dose 12.5 MG; Start 01/31/17 at 21:00 Assessment/Plan Chief Complaint/Hosp Course IMPRESSION: 1. Vent-dependent respiratory failure.Status post tracheostomy change 2. Chronic interstitial lung disease. 3. Recurrent polymicrobial sepsis. 4. History of acute kidney injury. PLAN: 1. Continue broad-spectrum antibiotics. Currently on vancomycin and meropenem. 2. Continue tube feeding. 3. Continue mechanical ventilation. 4. Transfer to telemetry and consider transfer back to [facility] facility. Overall prognosis remains guarded. Problems: COLETTE SAAVEDRA MD, [facility] Feb 02, 2017 09:51
--- NOTE | 2017-02-02 12:46 | CONS ---
Date/Time of Note Date/Time of Note DATE: 02/02/17 TIME: 12:44 Assessment/Plan Assessment/Plan Chief Complaint/Hosp Course 71-year-old male with history of pulmonary fibrosis, chronic CHF, dysphagia status post PEG, fatty liver, history of alcoholism, admitted to intensive care unit for shortness of breath. Patient was found to have leaking tracheostomy tube which needs to be evaluated by the ENT surgeon. GI consult was called in for the anemia. Case discussed with the staff no GI bleeding G-tube aspirate was negative for blood no hematochezia or melena. Patient denies of any abdominal pain no nausea no vomiting. Problems: Additional Assessment/Plan Assessment/Plan Additional Assessment/Plan 1. Vent dependent respiratory failure secondary to pulmonary fibrosis 2. Anemia most probably related to chronic disease, given the history of GI bleeding in the past will send stool for occult blood and anemia workup. 3. CHF 4. UTI 5. Pneumonia 6. Leaking tracheostomy site, tracheostomy tube change 7. Fatty liver 8. Alcoholism 9. C. difficile colitis Plan Anemia workup, so far negative. B12 folic acid and ferritin all within normal limit. Stool for occult blood Continue G-tube feeding with aspiration precaution Continue all supportive care Consultation Date/Type/Reason Admit Date/Time Jan 29, 2017 at 18:45 Initial Consult Date 01/29/17 Type of Consultation: Pulm Referring Provider: MATTHEW CALDERON MD 24 HR Interval Summary Constitutional: no complaints Exam/Review of Systems Vital Signs Vitals Vital Signs Date Time Temp Pulse Resp B/P Pulse Ox O2 Delivery O2 Flow Rate FiO2 02/02/17 12:00 92 02/02/17 11:00 14 117/84 93 Mechanical Ventilator 02/02/17 08:00 40 02/02/17 04:00 99.2 Intake and Output 02/01/17 02/01/17 02/02/17 14:59 22:59 06:59 Intake Total 580 ml 810 ml 500 ml Output Total 450 ml 1880 ml 490 ml Balance 130 ml -1070 ml 10 ml Exam Respiratory: other (And is on vent) Extremities: normal pulses Neurological: ELECTRONIC PAGINATION SYSTEM OPERATOR II-XII intact, nl mental status, nl speech, nl strength Results Result Diagram: 01/31/17 0450 02/02/17 0400 Results 24 hrs Laboratory Tests Test 02/01/17 20:00 02/02/17 04:00 Vancomycin Level Trough 13.3 Sodium Level 136 Potassium Level 3.7 Chloride Level 96 L Carbon Dioxide Level 38 H Anion Gap 6 L Blood Urea Nitrogen 11 Creatinine 0.47 L Glucose Level 109 Calcium Level 8.9 Total Bilirubin 0.0 L Direct Bilirubin 0.00 Indirect Bilirubin 0.0 Aspartate Amino Transf (AST/SGOT) 26 Alanine Aminotransferase (ALT/SGPT) 25 Alkaline Phosphatase 109 Total Protein 6.9 Albumin 2.7 L Globulin 4.20 H Albumin/Globulin Ratio 0.64 Medications Medications Current Medications Miscellaneous Information (Pending Santyl Order For Wound Care) This patient moss... PRN PRN XX WOUND CARE; Start 01/29/17 at 20:00 Vancomycin HCl (Vancomycin Oral Syringe) 250 mg Q6 PEG Last administered on 02/02 12:26; Admin Dose 250 MG; Start 01/29/17 at 20:00 Acetaminophen (Tylenol Liquid) 650 mg Q6H PRN GTB MILD PAIN/FEVER >= 101; Start 01/29/17 at 20:00 Ascorbic Acid (Vitamin C) 500 mg DAILY GTB Last administered on 02/02/17 09:11 ; Admin Dose 500 MG; Start 01/30/17 at 09:00 Diphenhydramine HCl (Benadryl) 25 mg Q6H PRN IV FOR AGITATION; Start 01/29/17 at 20:00 Diphenhydramine HCl (Benadryl Liquid Cup) 25 mg Q6H PRN GTB ALLERGIC REACTION; Start 01/29/17 at 20:00 Docusate Sodium (Colace Liquid Cup) 100 mg BID GTB Last administered on 08:37; Admin Dose 100 MG; Start 01/29/17 at 21:00 Folic Acid (Folic Acid) 1 mg DAILY GTB Last administered on 02/02/17 09:12; Admin Dose 1 MG; Start 01/30/17 at 09:00 Guaifenesin/ Codeine Phosphate (Robitussin Ac Liquid Cup) 5 ml Q4H PRN GTB COUGH; Start 01/29/17 at 20:00 Haloperidol (Haldol) 5 mg Q6H PRN IM AGITATION Last administered on 01/31/17 17 :53; Admin Dose 5 MG; Start 01/29/17 at 20:00 Lactobacillus Acidophilus (Florajen3 Capsule) 1 each TID NGT Last administered on 02/02/17 09:28; Admin Dose 1 EACH; Start 01/29/17 at 21:00 Lansoprazole (Prevacid) 30 mg DAILY@06 GTB Last administered on 02/02/17 05:01 ; Admin Dose 30 MG; Start 01/30/17 at 06:00 Loperamide HCl (Imodium Cap) 2 mg Q6H PRN GTB DIARRHEA; Start 01/29/17 at 20:30 Metoprolol Tartrate (Lopressor) 5 mg Q6H PRN IV HR > 120 ( IF SBP > 120); Start 01/29/17 at 20:30 Morphine Sulfate (morphine) 2 mg Q4H PRN IV SEVERE PAIN Last administered on 16:33; Admin Dose 2 MG; Start 01/29/17 at 20:30 Multivitamins 30 ml 30 ml DAILY GTB Last administered on 02/02/17 09:13; Admin Dose 30 ML; Start 01/30/17 at 09:00 Meropenem/Sodium Chloride (Merrem 1 Gm/50 ml (Pmx)) 50 ml @ 100 mls/hr Q8 IVPB Last administered on 02/02/17 05:01; Admin Dose 100 MLS/HR; Start 01/29/17 at 22:00 IV Flush (NS 10 ml) 10 ml PRN PRN IV PRN; Start 01/29/17 at 20:30 Nystatin (Nystatin Susp) 5 ml Q12 GTB Last administered on 02/02/17 09:11; Admin Dose 5 ML; Start 01/29/17 at 21:00 Ondansetron HCl (Zofran Inj) 4 mg Q6H PRN IV NAUSEA AND/OR VOMITING; Start 01/29 at 20:30 Oxcarbazepine (Trileptal) 300 mg BID GTB Last administered on 02/02/17 09:12; Admin Dose 300 MG; Start 01/29/17 at 21:00 Acetaminophen/ Hydrocodone Bitart 1 tab 1 tab Q4H PRN GTB PAIN Last administered on 01/30/17 10:31; Admin Dose 1 TAB; Start 01/29/17 at 20:30 Sodium Chloride 1,000 ml @ 30 mls/hr Q24H IV Last administered on 02/02/17 05: 01; Admin Dose 30 MLS/HR; Start 01/29/17 at 20:30 Propofol 100 ml @ 1.851 mls/ hr Q12H IV Last administered on 01/31/17 11:34; Admin Dose 7.403 MLS/HR; Start 01/29/17 at 20:30 Vancomycin HCl (Vancocin) 250 ml @ 125 mls/hr Q24H IVPB Last administered on 20:52; Admin Dose 125 MLS/HR; Start 01/30/17 at 21:00 Quetiapine Fumarate (Seroquel) 50 mg Q6 GTB Last administered on 02/02/17 12:26 ; Admin Dose 50 MG; Start 01/30/17 at 00:00 Clonidine (Catapres) 0.1 mg Q6 GTB ; Start 01/30/17 at 00:00; Status Future Hold Metoprolol Tartrate (Lopressor) 12.5 mg BID GTB Last administered on 02/02/17 09:12; Admin Dose 12.5 MG; Start 01/31/17 at 21:00 KASHMIR NOVAK MD Feb 02, 2017 12:46
--- NOTE | 2017-02-02 14:12 | CONS ---
Date/Time of Note Date/Time of Note DATE: 02/02/17 TIME: 14:06 Assessment/Plan Assessment/Plan Additional Assessment/Plan VDRF s/p Trach Diastolic heart failure HTN Pulmonary fibrosis PNA UTI Anemia hemodynamically stable heart failure clinically compensated Continue Vent support Continue Antibiotics Continue Nebs as scheduled Continue Metoprolol Consultation Date/Type/Reason Admit Date/Time Jan 29, 2017 at 18:45 Gen Awake, alert Neck S/p Trach CVS RRR, no m/r/g Res: Mechanical Breath sounds heard bilaterally Abd: Soft, BS sounds heard ext: No pedal edema Constitutional: no complaints Respiratory: no complaints Cardiovascular: no complaints Gastrointestinal: no complaints Genitourinary: no complaints Musculoskeletal: no complaints Psychological: nl mood/affect Past Medical History Medical History: congestive heart failure, GI bleed, hypertension, urinary tract infection, other (pulmonary fibrosis) Past Surgical History Past Surgical Hx: endoscopy, other (trach) Social History Alcohol Use: none Drug Use: none Exam/Review of Systems Vital Signs Vitals Vital Signs Date Time Temp Pulse Resp B/P Pulse Ox O2 Delivery O2 Flow Rate FiO2 02/02/17 12:01 98.7 02/02/17 12:00 92 02/02/17 12:00 27 134/61 94 Mechanical Ventilator 02/02/17 08:00 40 Intake and Output 02/01/17 02/01/17 02/02/17 15:00 23:00 07:00 Intake Total 660 ml 730 ml 470 ml Output Total 450 ml 1950 ml 480 ml Balance 210 ml -1220 ml -10 ml Results Result Diagram: 01/31/17 0450 02/02/17 0400 Results 24 hrs Laboratory Tests Test 02/01/17 20:00 02/02/17 04:00 Vancomycin Level Trough 13.3 Sodium Level 136 Potassium Level 3.7 Chloride Level 96 L Carbon Dioxide Level 38 H Anion Gap 6 L Blood Urea Nitrogen 11 Creatinine 0.47 L Glucose Level 109 Calcium Level 8.9 Total Bilirubin 0.0 L Direct Bilirubin 0.00 Indirect Bilirubin 0.0 Aspartate Amino Transf (AST/SGOT) 26 Alanine Aminotransferase (ALT/SGPT) 25 Alkaline Phosphatase 109 Total Protein 6.9 Albumin 2.7 L Globulin 4.20 H Albumin/Globulin Ratio 0.64 Medications Medications Current Medications Miscellaneous Information ([facility] This patient moss... PRN PRN XX WOUND CARE; Start 01/29/17 at 20:00 Vancomycin HCl (Vancomycin Oral Syringe) 250 mg Q6 PEG Last administered on 02/02 12:26; Admin Dose 250 MG; Start 01/29/17 at 20:00 Acetaminophen (Tylenol Liquid) 650 mg Q6H PRN GTB MILD PAIN/FEVER >= 101; Start 01/29/17 at 20:00 Ascorbic Acid (Vitamin C) 500 mg DAILY GTB Last administered on 02/02/17 09:11 ; Admin Dose 500 MG; Start 01/30/17 at 09:00 Diphenhydramine HCl (Benadryl) 25 mg Q6H PRN IV FOR AGITATION; Start 01/29/17 at 20:00 Diphenhydramine HCl (Benadryl Liquid Cup) 25 mg Q6H PRN GTB ALLERGIC REACTION; Start 01/29/17 at 20:00 Docusate Sodium (Colace Liquid Cup) 100 mg BID GTB Last administered on 08:37; Admin Dose 100 MG; Start 01/29/17 at 21:00 Folic Acid (Folic Acid) 1 mg DAILY GTB Last administered on 02/02/17 09:12; Admin Dose 1 MG; Start 01/30/17 at 09:00 Guaifenesin/ Codeine Phosphate (Robitussin Ac Liquid Cup) 5 ml Q4H PRN GTB COUGH; Start 01/29/17 at 20:00 Haloperidol (Haldol) 5 mg Q6H PRN IM AGITATION Last administered on 01/31/17 17 :53; Admin Dose 5 MG; Start 01/29/17 at 20:00 Lactobacillus Acidophilus (Florajen3 Capsule) 1 each TID NGT Last administered on 02/02/17 09:28; Admin Dose 1 EACH; Start 01/29/17 at 21:00 Lansoprazole (Prevacid) 30 mg DAILY@06 GTB Last administered on 02/02/17 05:01 ; Admin Dose 30 MG; Start 01/30/17 at 06:00 Loperamide HCl (Imodium Cap) 2 mg Q6H PRN GTB DIARRHEA; Start 01/29/17 at 20:30 Metoprolol Tartrate (Lopressor) 5 mg Q6H PRN IV HR > 120 ( IF SBP > 120); Start 01/29/17 at 20:30 Morphine Sulfate (morphine) 2 mg Q4H PRN IV SEVERE PAIN Last administered on 16:33; Admin Dose 2 MG; Start 01/29/17 at 20:30 Multivitamins 30 ml 30 ml DAILY GTB Last administered on 02/02/17 09:13; Admin Dose 30 ML; Start 01/30/17 at 09:00 Meropenem/Sodium Chloride (Merrem 1 Gm/50 ml (Pmx)) 50 ml @ 100 mls/hr Q8 IVPB Last administered on 02/02/17 05:01; Admin Dose 100 MLS/HR; Start 01/29/17 at 22:00 IV Flush (NS 10 ml) 10 ml PRN PRN IV PRN; Start 01/29/17 at 20:30 Nystatin (Nystatin Susp) 5 ml Q12 GTB Last administered on 02/02/17 09:11; Admin Dose 5 ML; Start 01/29/17 at 21:00 Ondansetron HCl (Zofran Inj) 4 mg Q6H PRN IV NAUSEA AND/OR VOMITING; Start 01/29 at 20:30 Oxcarbazepine (Trileptal) 300 mg BID GTB Last administered on 02/02/17 09:12; Admin Dose 300 MG; Start 01/29/17 at 21:00 Acetaminophen/ Hydrocodone Bitart 1 tab 1 tab Q4H PRN GTB PAIN Last administered on 01/30/17 10:31; Admin Dose 1 TAB; Start 01/29/17 at 20:30 Sodium Chloride 1,000 ml @ 30 mls/hr Q24H IV Last administered on 02/02/17 05: 01; Admin Dose 30 MLS/HR; Start 01/29/17 at 20:30 Propofol 100 ml @ 1.851 mls/ hr Q12H IV Last administered on 01/31/17 11:34; Admin Dose 7.403 MLS/HR; Start 01/29/17 at 20:30 Vancomycin HCl (Vancocin) 250 ml @ 125 mls/hr Q24H IVPB Last administered on 20:52; Admin Dose 125 MLS/HR; Start 01/30/17 at 21:00 Quetiapine Fumarate (Seroquel) 50 mg Q6 GTB Last administered on 02/02/17 12:26 ; Admin Dose 50 MG; Start 01/30/17 at 00:00 Clonidine (Catapres) 0.1 mg Q6 GTB ; Start 01/30/17 at 00:00; Status Future Hold Metoprolol Tartrate (Lopressor) 12.5 mg BID GTB Last administered on 02/02/17 09:12; Admin Dose 12.5 MG; Start 01/31/17 at 21:00 DESEAN BENNETT M.D. Feb 02, 2017 14:12
--- NOTE | 2017-02-02 16:30 | DS ---
Date/Time of Note Date/Time of Note DATE: 02/02/17 TIME: 16:30 Discharge Summary Admission/Discharge Info Admit Date/Time Jan 29, 2017 at 18:45 Discharge Date/Time Discharge Diagnosis Chronic respiratory failure on mechanical ventilation with underlying pulmonary fibrosis-VDRF s/p trach 10/09/2016 - per Pulmonary - Continue mechanical ventilation. - Recurrent polymicrobial sepsis- VRE stool/ESBL urine - per ID -Continue broad-spectrum antibiotics. - contact isolation - Anemia- drop in H/H - pREVACID - will consult GI- Dr Connelly notified - continue to monitor H&H. - stool OB - Dysphagia. - s/p PEG placement 10/09/2016 - Possible trach site leak. - Per ENT- pending evaluation - Encephalopathy - Multi Drug Allergy - HLD and fatty liver - mental status change after haloperidol and morphine, lorazepam - Hx erythroderma of unclear etiology in 11/2016, resolved - h/o CARLOS - h/o alcoholism - chronic diastolic HF - diverticulosis, seen on CT at [facility] - severe protein calorie malnutrition - h/o fall and trauma to R foot Hx of Present Illness The patient is a 71-year-old male, a resident at [facility] facility, with history of pulmonary fibrosis, ventilator dependent respiratory failure with tracheostomy, dysphagia with PEG, history of pneumonia, chronic diastolic congestive heart failure, hyperlipidemia, history of fatty liver, history of alcoholism. Patient transferred from [facility] last night for increasing shortness of breath, cuff leak and hypertension. Patient is nonverbal.The patient's lung sounds on auscultation showed coarse rhonchi. No nausea or vomiting was reported, and the patient is admitted to ICU for further evaluation and management to a telemetry floor. Per staff- Tarch tube was changed by LYLY CHÁVEZ # [phone]- no leakage reported. ENT evaluation pending. ALLERGIES: THE PATIENT IS ALLERGIC TO MICONAZOLE, CASPOFUNGIN. LORAZEPAM REVIEW OF SYSTEMS: A 12-point review of systems is negative unless otherwise mentioned in the HPI. Hospital Course IMPRESSION: 1. Vent-dependent respiratory failure.Status post tracheostomy change 2. Chronic interstitial lung disease. 3. Recurrent polymicrobial sepsis. 4. History of acute kidney injury. PLAN: 1. Continue broad-spectrum antibiotics. Currently on vancomycin and meropenem. 2. Continue tube feeding. 3. Continue mechanical ventilation. 4. Transfer to telemetry and consider transfer back to [facility] facility. Overall prognosis remains guarded. Home Meds Reported Medications Docusate Sodium* (Colace* Liq) 50 Mg/5 Ml Liquid, 100 MG GTB BID, EA 01/29/17 0.9 % Sodium Chloride (Sodium Chloride) 50 Ml Syringe, 1000 ML IV* Q24H 01/29/17 Normal Saline (Normal Saline Flush) 5 Ml Disp.syrin, 3 ML IV* Q8 01/29/17 Quetiapine Fumarate* (Seroquel*) 50 Mg Tablet, 50 MG GTB Q6, TAB 01/29/17 Oxcarbazepine* (Trileptal*) 300 Mg Tablet, 300 MG GTB BID, TAB 01/29/17 Ondansetron HCl (Zofran) 4 Mg/5 Ml Solution, 4 MG IV* Q6 Y for NAUSEA 01/29/17 Nystatin (Nystatin) 100,000 Unit/1 Ml Oral.susp, 5 ML PO Q12, #60 ML 01/29/17 Multivitamins (MVI ADULT) 10 Ml Soln, 30 ML GTB DAILY 01/29/17 Morphine (Morphine) 2 Mg/1 Ml Disp.syrin, 2 MG IV Q4H Y for PAIN, EA 01/29/17 Metoprolol Tartrate* (Lopressor*) 50 Mg Tab, 50 MG GTB BID, #60 TAB 01/29/17 Loperamide Hcl (IMODIUM LIQUID CUP) 1 Mg/5 Ml Liq, 2 MG GTB Q6 Y for DIARRHEA 01/29/17 Lansoprazole* (Lansoprazole*) 30 Mg Capsule.dr, 30 MG GTB DAILY, CAP 01/29/17 L Acidophil/B Lactis/B Longum (FLORAJEN3 CAPSULE) 460 Mg Capsule, 460 MG PO TID , CAP 01/29/17 Ipratropium-Albuterol (Ipratropium-Albuterol) 0.5-3 Mg/3 Ml Ampul.neb, 3 ML INHALATION Q2H, #30 VIAL 01/29/17 Ipratropium Burt* (Atrovent HFA*) 12.9 Gm Aer.w.adap, 2 PUFF INHALATION Q2H, #1 INHALER 01/29/17 Ipratropium Burt* (Atrovent HFA*) 12.9 Gm Aer.w.adap, 2 PUFF INHALATION Q4H for SHORTNESS OF BREATH, #1 INHALER 01/29/17 Hydrocodone/Acetaminophen (Mary D 5-325 Tablet) 1 Each Tablet, 1 EACH GTB Q4 Y for PAIN, TAB 01/29/17 Guaifenesin-Codeine Phosphate* (Robitussin* AC) 5 Ml Syrup, 5 ML GTB Q4H Y for COUGH, ML 01/29/17 Folic Acid* (Folic Acid*) 1 Mg Tablet, 1 MG GTB DAILY, TAB 01/29/17 Diphenhydramine Hcl* (Benadryl*) 50 Mg Cap, 50 MG IV Q6 Y for ITCHING, CAP 01/29/17 Diphenhydramine Hcl* (Benadryl*) 25 Mg Cap, 25 MG GTB Q6H Y for ITCHING, CAP 01/29/17 Clonidine Hcl* (Clonidine Hcl*) 0.1 Mg Tab, 0.1 MG GTB Q6, TAB 01/29/17 Ascorbic Acid (Vitamin C) 500 Mg Tab, 500 MG G-TUBE DAILY, TAB 01/29/17 Albuterol Sulfate* (Ventolin HFA*) 18 Gm Hfa.aer.ad, 2 PUFF INHALATION Q2H, #1 INHALER 01/29/17 Albuterol Sulfate* (Ventolin HFA*) 18 Gm Hfa.aer.ad, 2 PUFF INHALATION Q4H, #1 INHALER 01/29/17 Acetaminophen* (Acetaminophen* Susp) 325 Mg/10.15 Ml Solution, 650 MG GTB Q6 Y for PAIN OR TEMP ABOVE 38C, ML 01/29/17 Acetaminophen* (Acetaminophen*) 650 Mg Tablet, 650 MG PO Q6H Y for PAIN AND OR ELEVATED TEMP, #30 TAB 01/29/17 [Multiple Mineral Liq] No Conflict Check, 30 ML GTB DAILY 01/09/17 [Vancomycin Hcl] No Conflict Check, 850 MG IV* Q24H for SEPSIS for 10 Days END DATE 01/13/17 01/09/17 Ascorbic Acid* (Vitamin C* Liq) 500 Mg/5 Ml Syrup, 500 MG GTB DAILY, ML 01/09/17 Protein Supplement (Promod) 946 Ml Liquid, 30 ML GTB BID 01/09/17 Oxcarbazepine* (Oxcarbazepine*) 300 Mg Tablet, 300 MG GTB BID, TAB 01/09/17 Hydrocodone/Acetaminophen (Mary D 5-325 Tablet) 1 Each Tablet, 1 EACH GTB Q4H Y for PAIN LEVEL 4-10/10, TAB 01/09/17 Metoprolol Tartrate* (Lopressor*) 50 Mg Tab, 50 MG GTB BID, #60 TAB HOLD IF SBP<110 OR HR<60 01/09/17 Lorazepam* (Lorazepam*) 1 Mg Tablet, 1 MG GTB Q4H Y for ANXIETY, #30 TAB 01/09/17 Loperamide Hcl* (Loperamide Hcl*) 2 Mg Cap, 2 MG GTB Q4H, CAP 01/09/17 Lansoprazole* (Lansoprazole*) 30 Mg Capsule.dr, 30 MG GTB DAILY, CAP 01/09/17 Folic Acid* (Folic Acid*) 1 Mg Tablet, 1 MG GTB DAILY, TAB 01/09/17 L Acidophil/B Lactis/B Longum (FLORAJEN3 CAPSULE) 460 Mg Capsule, 460 MG GTB TID , CAP 01/09/17 Ipratropium-Albuterol (Ipratropium-Albuterol) 0.5-3 Mg/3 Ml Ampul.neb, 3 ML INHALATION Q2H, #30 VIAL 01/09/17 Docusate Sodium* (Colace*) 100 Mg Capsule, 100 MG GTB BID, #60 CAP 01/09/17 Clonidine Hcl* (Clonidine Hcl*) 0.1 Mg Tab, 0.1 MG GTB Q6, TAB FOR HTN SBP>170 01/09/17 Cefepime Hcl/Ivpb* (Cefepime- 1 Gm/50 Ml*) 1 Gm/50 Ml Piggyback, 1 GM IVPB Q12, EA END DATE 01/14/17 01/09/17 Betamethasone Valerate (Betamethasone Valerate) 15 Gm Oint..gm., 15 GM TP DAILY , #1 TUB END DATE 01/10/17 01/09/17 Diphenhydramine Hcl* (Benadryl*) 25 Mg Cap, 25 MG GTB Q6H Y for ITCHING, CAP 01/09/17 Acetaminophen* (Acetaminophen* Susp) 325 Mg/10.15 Ml Solution, 650 MG GTB Q6H Y for FOR FEVER T>101, ML AND FOR PL1-3/10 01/09/17 Primary Care [facility] Pending Labs Laboratory Tests Test 02/01/17 20:00 02/02/17 04:00 Vancomycin Level Trough 13.3ug/ml (10.0-20.0) Sodium Level 136mmol/L (135-144) Potassium Level 3.7mmol/L (3.5-5.1) Chloride Level 96mmol/L (97-110) Carbon Dioxide Level 38mmol/L (21-31) Anion Gap 6 (8-16) Blood Urea Nitrogen 11mg/dl (7-20) Creatinine 0.47mg/dl (0.61-1.24) Glucose Level 109mg/dl (70-220) Calcium Level 8.9mg/dl (8.4-10.2) Total Bilirubin 0.0mg/dl (0.2-1.3) Direct Bilirubin 0.00mg/dl (0.00-0.20) Indirect Bilirubin 0.0mg/dl (0-1.1) Aspartate Amino Transf (AST/SGOT) 26IU/L (15-46) Alanine Aminotransferase (ALT/SGPT) 25IU/L (13-69) Alkaline Phosphatase 109IU/L (42-121) Total Protein 6.9g/dl (6.1-8.1) Albumin 2.7g/dl (3.3-4.9) Globulin 4.20g/dl (1.3-3.2) Albumin/Globulin Ratio 0.64 CHARITY DUKE Feb 02, 2017 16:30
[2017-02-02] MEDS: VANCOMYCIN 1 GM in NS 250 ML IVPB SCH (20:49)
[2017-02-03] VITALS (19 sets, daily range): BP systolic 109–142; BP diastolic 64–78; PULSE 86–105; RESP 15–31
[2017-02-03] MEDS: SOD CHLORIDE 0.9% 1,000 ML IV SCH (00:49)
[2017-02-03] MEDS: VANCOMYCIN HCL 250 MG/5ML POSYG PEG SCH ×4 (00:50→18:04)
[2017-02-03] MEDS: MEROPENEM 1 GM/50ML(PMX) 50 ML IVPB SCH ×3 (00:50→15:01)
[2017-02-03] MEDS: QUETIAPINE 25 MG TAB GTB SCH ×4 (00:50→18:04)
[2017-02-03] MEDS: ALBUTEROL 18 GM INHALER INH SCH ×5 (01:01→17:47)
[2017-02-03] MEDS: IPRATROPIUM (HFA) 12.9 GM INHALER INH SCH ×5 (01:02→17:28)
[2017-02-03] MEDS: LANSOPRAZOLE 30 MG CAP GTB SCH (06:28)
[2017-02-03] MEDS: PROPOFOL 100 ML IV SCH (08:30)
[2017-02-03] MEDS: DOCUSATE SODIUM 10 MG/ML (10ML CUP) GTB SCH (09:00)
[2017-02-03] MEDS: METOPROLOL 25 MG TAB GTB SCH (09:38)
[2017-02-03] MEDS: NYSTATIN SUSP 5 ML CUP GTB SCH (09:38)
[2017-02-03] MEDS: L ACIDOPHIL/B LACTIS/B LONGUM CAPSULE NGT SCH ×2 (09:39→12:37)
[2017-02-03] MEDS: ASCORBIC ACID 500 MG TAB GTB SCH (09:39)
[2017-02-03] MEDS: FOLIC ACID 1 MG TAB GTB SCH (09:39)
[2017-02-03] MEDS: MULTIVITAMINS 30 ML CUP GTB SCH (09:39)
[2017-02-03] MEDS: OXCARBAZEPINE 300 MG TAB GTB SCH (09:39)
[2017-02-03] MEDS: BALSAM PERU/CASTOR OIL 60 GM TUBE TOP SCH (09:40)
--- NOTE | 2017-02-03 14:03 | CONS ---
Date/Time of Note Date/Time of Note DATE: 02/03/17 TIME: 14:02 Consult Date/Type/Reason Admit Date/Time Jan 29, 2017 at 18:45 Initial Consult Date 01/29/17 Type of Consultation: Pulm Ordering Provider: MATTHEW CALDERON MD Subjective Patient remains comfortable this morning. No new events. Objective Vital Signs Date Time Temp Pulse Resp B/P Pulse Ox O2 Delivery O2 Flow Rate FiO2 02/03/17 13:00 80 28 98 40 02/03/17 11:44 98.0 130/65 02/02/17 22:00 Mechanical Ventilator Intake and Output 02/02/17 02/02/17 02/03/17 15:00 23:00 07:00 Intake Total 240 ml 430 ml 360 ml Output Total 480 ml 130 ml 980 ml Balance -240 ml 300 ml -620 ml Exam OBJECTIVE DATA: VITAL SIGNS: Elderly gentleman appears comfortable at rest NECK: Trach site clean. CARDIAC: Sounds S1, S2. No added sounds or murmurs. CHEST: Diminished air entry bilaterally. ABDOMEN: Soft, nontender. No guarding or rebound. EXTREMITIES: No cyanosis, clubbing or edema. NEUROLOGIC: Generalized weakness. Results/Medications Result Diagram: 01/31/17 0450 02/02/17 0400 Medications Current Medications Miscellaneous Information (Pending [facility] Order For Wound Care) This patient moss... PRN PRN XX WOUND CARE; Start 01/29/17 at 20:00 Vancomycin HCl (Vancomycin Oral Syringe) 250 mg Q6 PEG Last administered on 12:37; Admin Dose 250 MG; Start 01/29/17 at 20:00 Acetaminophen (Tylenol Liquid) 650 mg Q6H PRN GTB MILD PAIN/FEVER >= 101; Start 01/29/17 at 20:00 Ascorbic Acid (Vitamin C) 500 mg DAILY GTB Last administered on 02/03/17 09:39 ; Admin Dose 500 MG; Start 01/30/17 at 09:00 Diphenhydramine HCl (Benadryl) 25 mg Q6H PRN IV FOR AGITATION; Start 01/29/17 at 20:00 Diphenhydramine HCl (Benadryl Liquid Cup) 25 mg Q6H PRN GTB ALLERGIC REACTION; Start 01/29/17 at 20:00 Docusate Sodium (Colace Liquid Cup) 100 mg BID GTB Last administered on 20:48; Admin Dose 100 MG; Start 01/29/17 at 21:00 Folic Acid (Folic Acid) 1 mg DAILY GTB Last administered on 02/03/17 09:39; Admin Dose 1 MG; Start 01/30/17 at 09:00 Guaifenesin/ Codeine Phosphate (Robitussin Ac Liquid Cup) 5 ml Q4H PRN GTB COUGH; Start 01/29/17 at 20:00 Haloperidol (Haldol) 5 mg Q6H PRN IM AGITATION Last administered on 01/31/17 17 :53; Admin Dose 5 MG; Start 01/29/17 at 20:00 Lactobacillus Acidophilus (Florajen3 Capsule) 1 each TID NGT Last administered on 02/03/17 12:37; Admin Dose 1 EACH; Start 01/29/17 at 21:00 Lansoprazole (Prevacid) 30 mg DAILY@06 GTB Last administered on 02/03/17 06:28 ; Admin Dose 30 MG; Start 01/30/17 at 06:00 Loperamide HCl (Imodium Cap) 2 mg Q6H PRN GTB DIARRHEA; Start 01/29/17 at 20:30 Metoprolol Tartrate (Lopressor) 5 mg Q6H PRN IV HR > 120 ( IF SBP > 120); Start 01/29/17 at 20:30 Morphine Sulfate (morphine) 2 mg Q4H PRN IV SEVERE PAIN Last administered on 16:33; Admin Dose 2 MG; Start 01/29/17 at 20:30 Multivitamins 30 ml 30 ml DAILY GTB Last administered on 02/03/17 09:39; Admin Dose 30 ML; Start 01/30/17 at 09:00 Meropenem/Sodium Chloride (Merrem 1 Gm/50 ml (Pmx)) 50 ml @ 100 mls/hr Q8 IVPB Last administered on 02/03/17 06:28; Admin Dose 100 MLS/HR; Start 01/29/17 at 22:00 IV Flush (NS 10 ml) 10 ml PRN PRN IV PRN; Start 01/29/17 at 20:30 Nystatin (Nystatin Susp) 5 ml Q12 GTB Last administered on 02/03/17 09:38; Admin Dose 5 ML; Start 01/29/17 at 21:00 Ondansetron HCl (Zofran Inj) 4 mg Q6H PRN IV NAUSEA AND/OR VOMITING; Start 01/29 at 20:30 Oxcarbazepine (Trileptal) 300 mg BID GTB Last administered on 02/03/17 09:39; Admin Dose 300 MG; Start 01/29/17 at 21:00 Acetaminophen/ Hydrocodone Bitart 1 tab 1 tab Q4H PRN GTB PAIN Last administered on 01/30/17 10:31; Admin Dose 1 TAB; Start 01/29/17 at 20:30 Sodium Chloride 1,000 ml @ 30 mls/hr Q24H IV Last administered on 02/03/17 00 :49; Admin Dose 30 MLS/HR; Start 01/29/17 at 20:30 Vancomycin HCl (Vancocin) 250 ml @ 125 mls/hr Q24H IVPB Last administered on 20:49; Admin Dose 125 MLS/HR; Start 01/30/17 at 21:00 Quetiapine Fumarate (Seroquel) 50 mg Q6 GTB Last administered on 02/03/17 12: 37; Admin Dose 50 MG; Start 01/30/17 at 00:00 Clonidine (Catapres) 0.1 mg Q6 GTB ; Start 01/30/17 at 00:00; Status Future Hold Metoprolol Tartrate (Lopressor) 12.5 mg BID GTB Last administered on 02/03/17 09:38; Admin Dose 12.5 MG; Start 01/31/17 at 21:00 Assessment/Plan Chief Complaint/Hosp Course IMPRESSION: 1. Vent-dependent respiratory failure.Status post tracheostomy change 2. Chronic interstitial lung disease. 3. Recurrent polymicrobial sepsis. 4. History of acute kidney injury. PLAN: 1. Continue broad-spectrum antibiotics. Currently on vancomycin and meropenem. 2. Continue tube feeding. 3. Continue mechanical ventilation. 4. Pending transfer to [place] respiratory unit Problems: COLETTE SAAVEDRA MD, [facility] Feb 03, 2017 14:03
--- NOTE | 2017-02-03 16:14 | CONS ---
Date/Time of Note Date/Time of Note DATE: 02/03/17 TIME: 16:12 Assessment/Plan Assessment/Plan Chief Complaint/Hosp Course - possible, recurrent sepsis - probable colonization of the resp tract by Gram negative bacteria - underlying pulmonary fibrosis - mental status change after haloperidol and morphine, now stable - h/o mental status change after lorazepam at [facility] - funguria, minimal pyuria - C. diff colitis 01/25/2017 - VDRF s/p trach 10/09/2016 - dysphagia s/p PEG placement 10/09/2016 - erythroderma of unclear etiology in 11/2016, resolved - h/o CARLOS - encephalopathy, improved - s/p recurrent sepsis due to HCAP and UTI - h/o HCAP due to MDR acinetobacter and ESBL E. Coli - h/o colonization with ESBL and CRE - h/o recurrent UTI due to ESBL E. Coli - h/o thrush - h/o bacteremia 10/28/2016 due to enterococcus faecium. Midline was dc'd - h/o bacteremia 12/21/2016 due to enterococcus faecalis - s/p severe sepsis due to UTI, prob aspiration after hematemesis and multiple intubation events, and HCAP - s/p acute UGIB of unclear etiology; s/p EGD 10/01/2016 showing no active bleeding site - HLD and fatty liver - h/o alcoholism - chronic diastolic HF - diverticulosis, seen on CT at [facility] - severe protein calorie malnutrition - h/o fall and trauma to R foot recommendations: - MDRO --poor prognosis - will continue to follow closely with you - will d/w rest of team. - continue meropenem (01/29/2017-); will consider adding inhaled aminoglyc and/or cefepime. Alternatively stoppage of abx could be considered with close monitoring - continue pGT vancomcyin for C diff colitis. No metronidazole to avoid neurotoxicity - enteric contact isolation for C diff colitis Problems: Consultation Date/Type/Reason Admit Date/Time Jan 29, 2017 at 18:45 Initial Consult Date 01/29/17 Type of Consultation: id Referring Provider: MATTHEW CALDERON MD Exam/Review of Systems Vital Signs Vitals Vital Signs Date Time Temp Pulse Resp B/P Pulse Ox O2 Delivery O2 Flow Rate FiO2 02/03/17 15:52 97.2 95 19 136/78 96 02/03/17 15:15 40 9/9/17 22:00 Mechanical Ventilator Intake and Output 02/02/17 02/02/17 02/03/17 15:00 23:00 07:00 Intake Total 240 ml 430 ml 360 ml Output Total 480 ml 130 ml 980 ml Balance -240 ml 300 ml -620 ml Results Result Diagram: 01/31/17 0450 02/02/17 0400 Medications Medications Current Medications Miscellaneous Information (Pending [facility] Order For Wound Care) This patient moss... PRN PRN XX WOUND CARE; Start 01/29/17 at 20:00 Vancomycin HCl (Vancomycin Oral Syringe) 250 mg Q6 PEG Last administered on 12:37; Admin Dose 250 MG; Start 01/29/17 at 20:00 Acetaminophen (Tylenol Liquid) 650 mg Q6H PRN GTB MILD PAIN/FEVER >= 101; Start 01/29/17 at 20:00 Ascorbic Acid (Vitamin C) 500 mg DAILY GTB Last administered on 02/03/17 09:39 ; Admin Dose 500 MG; Start 01/30/17 at 09:00 Diphenhydramine HCl (Benadryl) 25 mg Q6H PRN IV FOR AGITATION; Start 01/29/17 at 20:00 Diphenhydramine HCl (Benadryl Liquid Cup) 25 mg Q6H PRN GTB ALLERGIC REACTION; Start 01/29/17 at 20:00 Docusate Sodium (Colace Liquid Cup) 100 mg BID GTB Last administered on 20:48; Admin Dose 100 MG; Start 01/29/17 at 21:00 Folic Acid (Folic Acid) 1 mg DAILY GTB Last administered on 02/03/17 09:39; Admin Dose 1 MG; Start 01/30/17 at 09:00 Guaifenesin/ Codeine Phosphate (Robitussin Ac Liquid Cup) 5 ml Q4H PRN GTB COUGH; Start 01/29/17 at 20:00 Haloperidol (Haldol) 5 mg Q6H PRN IM AGITATION Last administered on 01/31/17 17 :53; Admin Dose 5 MG; Start 01/29/17 at 20:00 Lactobacillus Acidophilus (Florajen3 Capsule) 1 each TID NGT Last administered on 02/03/17 12:37; Admin Dose 1 EACH; Start 01/29/17 at 21:00 Lansoprazole (Prevacid) 30 mg DAILY@06 GTB Last administered on 02/03/17 06:28 ; Admin Dose 30 MG; Start 01/30/17 at 06:00 Loperamide HCl (Imodium Cap) 2 mg Q6H PRN GTB DIARRHEA; Start 01/29/17 at 20:30 Metoprolol Tartrate (Lopressor) 5 mg Q6H PRN IV HR > 120 ( IF SBP > 120); Start 01/29/17 at 20:30 Morphine Sulfate (morphine) 2 mg Q4H PRN IV SEVERE PAIN Last administered on 16:33; Admin Dose 2 MG; Start 01/29/17 at 20:30 Multivitamins 30 ml 30 ml DAILY GTB Last administered on 02/03/17 09:39; Admin Dose 30 ML; Start 01/30/17 at 09:00 Meropenem/Sodium Chloride (Merrem 1 Gm/50 ml (Pmx)) 50 ml @ 100 mls/hr Q8 IVPB Last administered on 02/03/17 15:01; Admin Dose 100 MLS/HR; Start 01/29/17 at 22:00 IV Flush (NS 10 ml) 10 ml PRN PRN IV PRN; Start 01/29/17 at 20:30 Nystatin (Nystatin Susp) 5 ml Q12 GTB Last administered on 02/03/17 09:38; Admin Dose 5 ML; Start 01/29/17 at 21:00 Ondansetron HCl (Zofran Inj) 4 mg Q6H PRN IV NAUSEA AND/OR VOMITING; Start 01/29 at 20:30 Oxcarbazepine (Trileptal) 300 mg BID GTB Last administered on 02/03/17 09:39; Admin Dose 300 MG; Start 01/29/17 at 21:00 Acetaminophen/ Hydrocodone Bitart 1 tab 1 tab Q4H PRN GTB PAIN Last administered on 01/30/17 10:31; Admin Dose 1 TAB; Start 01/29/17 at 20:30 Sodium Chloride 1,000 ml @ 30 mls/hr Q24H IV Last administered on 02/03/17 00 :49; Admin Dose 30 MLS/HR; Start 01/29/17 at 20:30 Vancomycin HCl (Vancocin) 250 ml @ 125 mls/hr Q24H IVPB Last administered on 20:49; Admin Dose 125 MLS/HR; Start 01/30/17 at 21:00 Quetiapine Fumarate (Seroquel) 50 mg Q6 GTB Last administered on 02/03/17 12: 37; Admin Dose 50 MG; Start 01/30/17 at 00:00 Clonidine (Catapres) 0.1 mg Q6 GTB ; Start 01/30/17 at 00:00; Status Future Hold Metoprolol Tartrate (Lopressor) 12.5 mg BID GTB Last administered on 02/03/17 09:38; Admin Dose 12.5 MG; Start 01/31/17 at 21:00 RM NEWMAN MD Feb 03, 2017 16:14
--- NOTE | 2017-02-05 11:30 | CONS ---
Date/Time of Note Date/Time of Note DATE: 02/05/17 TIME: 11:28 Assessment/Plan Assessment/Plan Chief Complaint/Hosp Course This is a 71-year-old male who is in the intensive care unit [facility] in shock, septic presumably secondary to pneumonia. She was transferred from [facility], with mental status changes precipitous change in his overall clinical condition. Patient is chronically PEG trach. Current medical history significant for diastolic congestive heart failure, respiratory failure chronically, anemia, end-stage renal disease on hemodialysis , fluid and electrolyte abnormalities, questionable history of delirium, recent history of recurrent hospitalizations, hyperlipidemia, malnutrition and wasting syndrome. Patient is full code decision-maker is his at the bedside patient has children but they are not in the state who have been in contact primarily by email. They are aware that he is critically ill I have had extensive conversation with patient's she is a decision occur only. Background social history has been discussed her hopes desires acceptable quality of life have been reviewed. She does not want him to live her quality of life, she does not want him to have cardiopulmonary resuscitation indication preferences 1 1 has spoken about level of care prior to this catastrophic change in his condition he does not want to live by artificial means. Goals of care been discussed and that is to keep him comfortable without advanced cardiac life support his prognosis is grave.. Patient's will consider comfort measures she requests additional time with him. Problems: Additional Assessment/Plan pOST DATED FOR 02/04 STABLE ENOUGH TO BE TRANSSFERRED BACK TO [place] Consultation Date/Type/Reason Admit Date/Time Jan 29, 2017 at 18:45 Initial Consult Date 01/29/17 Type of Consultation: Adelina RODRÍGUEZ Referring Provider: MATTHEW CALDERON MD 24 HR Interval Summary Free Text/Dictation This is a 71-year-old male who is in the intensive care unit [facility] in shock, septic presumably secondary to pneumonia. She was transferred from [facility], with mental status changes precipitous change in his overall clinical condition. Patient is chronically PEG trach. Current medical history significant for diastolic congestive heart failure, respiratory failure chronically, anemia, end-stage renal disease on hemodialysis , fluid and electrolyte abnormalities, questionable history of delirium, recent history of recurrent hospitalizations, hyperlipidemia, malnutrition and wasting syndrome. Patient is full code decision-maker is his at the bedside patient has children but they are not in the state who have been in contact primarily by email. They are aware that he is critically ill I have had extensive conversation with patient's she is a decision occur only. Background social history has been discussed her hopes desires acceptable quality of life have been reviewed. She does not want him to live her quality of life, she does not want him to have cardiopulmonary resuscitation indication preferences 1 1 has spoken about level of care prior to this catastrophic change in his condition he does not want to live by artificial means. Goals of care been discussed and that is to keep him comfortable without advanced cardiac life support his prognosis is grave.. Patient's will consider comfort measures she requests additional time with him. Constitutional: requiring IVF, requiring O2 Psychological: nl mood/affect, no complaints, Exam/Review of Systems Vital Signs Vitals Vital Signs Date Time Temp Pulse Resp B/P Pulse Ox O2 Delivery O2 Flow Rate FiO2 02/03/17 17:48 104 28 98 40 02/03/17 15:52 97.2 136/78 02/02/17 22:00 Mechanical Ventilator Results Result Diagram: 02/02/17 0400 HUSAM ARMANDO Feb 05, 2017 11:30
--- NOTE | 2017-02-07 08:35 | CONS ---
DATE OF ADMISSION: DATE OF CONSULTATION: ADDENDUM PHYSICAL EXAMINATION: On examining the tracheostomy tube which is an XLT, the balloon is hyperinflated. 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 I would have respiratory therapy to place the balloon and slowly inflate it to the minimal pressure needed to occlude the trachea. If there are any persistent issues, please feel free to re-consult at that time. IMPRESSION: 1. Respiratory failure. 2. Tracheostomy tube malfunction. 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 If there are any questions or concerns, please feel free to re-consult at any time. Dictated By: Sumeet aCrr MD /indio/nick Childress#: [id number]/Document#: [id number]
--- NOTE | 2017-02-08 07:03 | CONS ---
DATE OF ADMISSION: DATE OF CONSULTATION: HISTORY OF PRESENT ILLNESS: Bayron Flowers is a 71-year- old gentleman admitted to [facility] for respiratory failure. His has a past medical history of pulmonary fibrosis but no tobacco use. He has a tracheostomy and there was a leak. ENT was consulted. The trach ended up being changed and there is no more leak but the ENT is here to evaluate. PAST MEDICAL HISTORY: Pulmonary fibrosis, congestive heart failure, fatty liver disease, dysphagia, ventilator-dependent respiratory failure. PAST SURGICAL HISTORY: Percutaneous endoscopic gastrostomy tube, tracheostomy tube. ALLERGIES: MICONAZOLE. MEDICATION: List was reviewed. FAMILY HISTORY: Negative for any heart, lung, kidney, thyroid disease. REVIEW OF SYSTEMS: Twelve point review of systems was otherwise noncontributory. SOCIAL HISTORY: Negative for tobacco, alcohol, or drug abuse. PHYSICAL EXAMINATION: NECK: The neck reveals no lymphadenopathy or thyromegaly. Trachea is midline. Parotid and submandibular glands are without lesion. The tracheostomy tube is stable. Endoscopy was performed through the tracheostomy tube and the tube is approximately 1.5 cm proximal to the melony. There is no evidence of tracheomalacia at this level. When palpating the , it appears to be quite fully DICTATION ENDS HERE Dictated By: Sumeet Carr MD /indio/nick /Document#: [id number]
== END 2017-02-03 18:42 | DRG 870 ==
LOC: EEVIPCON → ICU 18:45 → EDSTATUS 01-31 17:49 → TEL 02-02 22:31
PROVIDERS: ADMIT Internal Medicine; ATTEND Internal Medicine
PROC: 5A1955Z Respiratory Ventilation, Greater than 96 Consecutive Hours (ICD-10-PCS; principal; 2017-01-29)
DX: A41.89 Other specified sepsis (principal); E43 Unspecified severe protein-calorie malnutrition; G93.40 Encephalopathy, unspecified; J18.9 Pneumonia, unspecified organism; J84.10 Pulmonary fibrosis, unspecified; J96.10 Chronic respiratory failure, unspecified whether with hypoxia or hypercapnia; Z93.0 Tracheostomy status; I50.32 Chronic diastolic (congestive) heart failure; N39.0 Urinary tract infection, site not specified; I11.0 Hypertensive heart disease with heart failure; Z68.21 Body mass index [BMI] 21.0-21.9, adult; Z93.1 Gastrostomy status; R13.10 Dysphagia, unspecified; K76.0 Fatty (change of) liver, not elsewhere classified; D63.8 Anemia in other chronic diseases classified elsewhere; F10.20 Alcohol dependence, uncomplicated; J39.8 Other specified diseases of upper respiratory tract
CPT/HCPCS: 36600; 71010; 80048; 80053; 80202; 81001; 82607; 82728; 82746; 82803; 82962; 83605; 83735; 84100; 85025; 85045; 87040; 87070; 87081; 87086; 89220; 94002; 94003; 94640; J1940; J1630; J2185; J2270; J3370; J7030; J7050

== ENCOUNTER → 2017-03-01 | Day surgery (SDC) | payer MEDICAID, MEDICARE, OTHER ==
[~2017-03-01] VITALS: Ht 165.1 cm; Wt 63.9 kg
[2017-03-01] VITALS (8 sets, daily range): BP systolic 111–150; BP diastolic 68–80; PULSE 94–116; RESP 15–30
[~2017-03-01] MED LIST changes: +ACET-2047 PO; +ALBU18HF INHALATION; +ASC500 G-TUBE; +BEN50 IV; +CEFAZOLIN 1 GM INJ ONE; +FENTAnyl 50 MCG/ML VIAL ONE; +IPRA12.93 INHALATION; +L.AC460C PO; +LOPE1LIQ69 GTB; +MORP2DIS2 IV; +MVI GTB; +NORM5DIS26 IV*; +NYST1000 PO; +ONDA4SOL2 IV*; +OXCA300T3 GTB; +QUET50TA16 GTB; +UDCOL GTB; +UDROBAC GTB; +[UNRECOGNIZED DRUG - OTHER] IV*
--- NOTE | 2017-03-01 12:42 | OPPN ---
Date/Time of Note Date/Time of Note DATE: 03/01/17 TIME: 12:40 Proc Note GI Procedure Date 03/01/17 Pre-procedure Diagnosis dysphagia Post-procedure Diagnosis PEG Procedure Performed: Endoscopy Surgeon see signature line Statistical Engineer none Anesthesia Type: MAC Tourniquet Time none EBL none Transfusion required none Biopsy 1: NONE Grafts/Implants none Tubes/Drains none Complication(s) none Pt Condition post procedure: stable Disposition: PACU Indications: other (DYSPHAGIA) Operative\Procedure Findings EGD Procedure Description DICTATED KASHMIR NOVAK MD Mar 01, 2017 12:42
--- NOTE | 2017-03-02 13:34 | GILP ---
DATE OF PROCEDURE: PROCEDURE PERFORMED: EGD. INDICATION: A 71-year-old male who G-tube was in the subcutaneous tissue is undergoing this procedu re to make sure the G-tube is back in the stomach and not in the subcutaneous tissue and if it is in the subcutaneous tissue then pull it out and put a new one. However, when I examined the patient t he G-tube was in the subcutaneous tissue. The stalk was not moving up or down. I forcibly pushed t he stalk and the bumper hopefully migrated in the stomach. INFORMED CONSENT: The risk of the procedure, related and unrelated complications, anesthetic risks, alternatives discussed and informed consent was obtained. DESCRIPTION OF PROCEDURE: The patient was brought to the OR and sedated by Dr. Crowley. After obtai aramis sedation, scope was passed with much ease into esophagus and advanced further down into stomach and definitely the bumper had migrated back into the stomach, the interval stoma was pretty large. We were worried that again the G-tube might get lodged in the subcutaneous tissue, but by putting th e new G-tube also there was a concern that will be of the same size bumper and that also may get kristyn rated so we repositioned the external bumper properly so that nobody touches the external bumper. S cope was thus removed with good patient tolerance. IMPRESSION: 1. G-tube: The PEG was again in the right position. 2. Large internal stoma. PLAN: At this point, is to resume feeding immediately through G-tube, have abdominal binder all the time so it accidentally does not get pulled out. Dictated By: KASHMIR PATHAK/DONYA Conf#: [id number] DID#: [id number]
== END ==
LOC: GIL 09:56
PROVIDERS: ATTEND Internal Medicine Gastroenterology
DX: K94.29 Other complications of gastrostomy (principal); J84.10 Pulmonary fibrosis, unspecified; Z93.0 Tracheostomy status; Z51.5 Encounter for palliative care; Z66 Do not resuscitate; Z87.01 Personal history of pneumonia (recurrent); J96.10 Chronic respiratory failure, unspecified whether with hypoxia or hypercapnia; F29 Unspecified psychosis not due to a substance or known physiological condition; R13.10 Dysphagia, unspecified; A04.72 Enterocolitis due to Clostridium difficile, not specified as recurrent; I11.0 Hypertensive heart disease with heart failure; J96.21 Acute and chronic respiratory failure with hypoxia; K70.0 Alcoholic fatty liver; F10.20 Alcohol dependence, uncomplicated; Z87.440 Personal history of urinary (tract) infections
CPT/HCPCS: 43235; 94002; J0690; J3010

== ENCOUNTER 2017-03-29 16:20 | Inpatient (IN) | END 2017-04-04 18:05 | disposition short-term general hospital (02) | DRG 870 | DX: A41.9 Sepsis, unspecified organism (principal); J18.9 Pneumonia, unspecified organism; Z99.11 Dependence on respirator [ventilator] status; J84.10 Pulmonary fibrosis, unspecified; I11.0 Hypertensive heart disease with heart failure; J96.10 Chronic respiratory failure, unspecified whether with hypoxia or hypercapnia; A04.71 Enterocolitis due to Clostridium difficile, recurrent; E44.0 Moderate protein-calorie malnutrition; I50.32 Chronic diastolic (congestive) heart failure; Z93.0 Tracheostomy status; Z68.20 Body mass index [BMI] 20.0-20.9, adult; I10 Essential (primary) hypertension; G40.909 Epilepsy, unspecified, not intractable, without status epilepticus; F03.90 Unspecified dementia, unspecified severity, without behavioral disturbance, psychotic disturbance, mood disturbance, and anxiety; F29 Unspecified psychosis not due to a substance or known physiological condition; B96.20 Unspecified Escherichia coli [E. coli] as the cause of diseases classified elsewhere; B96.5 Pseudomonas (aeruginosa) (mallei) (pseudomallei) as the cause of diseases classified elsewhere; B95.62 Methicillin resistant Staphylococcus aureus infection as the cause of diseases classified elsewhere; Z16.12 Extended spectrum beta lactamase (ESBL) resistance; K76.0 Fatty (change of) liver, not elsewhere classified ==

== ENCOUNTER 2017-05-20 11:25 | Emergency (ER) | payer MEDICARE, MEDICAID ==
[~2017-05-20] VITALS: Ht 157.7 cm; Wt 68.0 kg
[~2017-05-20 11:25] MED LIST changes: +ACET-2047 GTB; -ACET-2047 PO; -ASCO500S2 GTB; -BEN25 GTB; -CEFAZOLIN 1 GM INJ ONE; -CEFE1PIG IVPB; -DOCU-144 GTB; +DOCU50LI23 GTB; -FENTAnyl 50 MCG/ML VIAL ONE; -IMO2 GTB; -L.AC460C GTB; +LOPE-123 GTB; -OXCA300T41 GTB; -UDCOL GTB; -VANCOMYCIN HCL IV*
[2017-05-20 11:46] VITALS: Ht 157.7 cm; Wt 68.0 kg
--- NOTE | 2017-05-20 12:56 | RADRPT ---
PROCEDURE: XR Abdomen. CLINICAL INDICATION: Gastrostomy tube replacement. TECHNIQUE: AP supine abdomen x-ray. COMPARISON: March 02, 2017. FINDINGS: There is a gastrostomy tube overlying the stomach. There is interstitial disease at the lung bases a s seen previously. The bowel gas pattern is normal with no evidence of obstruction. There are no abnormal calcifications overlying the urinary tracts. There are degenerative changes of the spine. IMPRESSION: 1. Gastrostomy tube. 2. No other change from 03/02/2017. RPTAT: QQ .Nathan Tom MD, MD Date Time Electronically viewed and signed by .Nathan Tom MD, MD on 05/20/2017 12:55 .R/
[2017-05-20] MEDS ORDERED: DIATR MEGLU/DIATRIZOATE SODIUM 30 ML SOLUTION PO ONE (13:30)
[2017-05-20] MEDS ORDERED: ATEN-51 GTB (13:58)
[2017-05-20] MEDS ORDERED: MUPI22OI2 TOP (13:59)
[2017-05-20] MEDS ORDERED: FAMO20TA18 GTB (14:00)
[2017-05-20] MEDS ORDERED: LACTINEX GTB (14:01)
[2017-05-20] MEDS ORDERED: LEVO500T72 PO (14:05)
[2017-05-20] MEDS ORDERED: ESCI5SOL2 GTB (14:06)
--- NOTE | 2017-05-20 14:59 | ERD ---
ER Documentation Chief Complaint Chief Complaint G-TUBE DISLODGED CURRENT SIZE 20 HPI This is a 72-year-old who pulled his G-tube out this morning. He was replaced by a Robin at the nursing facility. He was sent here for G-tube replacement. No complaints from the family. Patient is in no acute distress patient has history of history ROS All systems reviewed and are negative except as per history of present illness. Medications Home Meds Reported Medications Escitalopram Oxalate* (Escitalopram Oxalate*) 5 Mg/5 Ml Solution, 5 MG GTB DAILY , ML 05/20/17 Levofloxacin* (Levaquin*) 500 Mg Tablet, 500 MG PO DAILY for 10 Days, TAB END ON 05-22-17 05/20/17 Lactobacillus Acidophilus* (Lactinex*) 1 Tab Chew, 1 TAB GTB TID, TAB 05/20/17 Famotidine* (Famotidine*) 20 Mg Tablet, 20 MG GTB BID, #30 TAB 05/20/17 Mupirocin* (Bactroban*) 2% -22 Gram Oint...g., 1 APPLIC TOP DAILY for 10 Days, # 1 TUB SITE OF APPLICATION: 05/20/17 Atenolol* (Atenolol*) 25 Mg Tablet, 12.5 MG GTB BID, #30 TAB HOLD FOR SBP<110 OR PULSE <60 05/20/17 Docusate Sodium* (Colace* Liq) 50 Mg/5 Ml Liquid, 100 MG GTB BID, EA 01/29/17 Normal Saline (Normal Saline Flush) 5 Ml Disp.syrin, 3 ML IV* Q8 01/29/17 Quetiapine Fumarate* (Seroquel*) 50 Mg Tablet, 50 MG GTB Q6, TAB 01/29/17 Oxcarbazepine* (Trileptal*) 300 Mg Tablet, 300 MG GTB BID, TAB 01/29/17 Nystatin (Nystatin) 100,000 Unit/1 Ml Oral.susp, 5 ML PO Q12, #60 ML 01/29/17 Multivitamins (MVI ADULT) 10 Ml Soln, 30 ML GTB DAILY 01/29/17 Metoprolol Tartrate* (Lopressor*) 50 Mg Tab, 50 MG GTB BID, #60 TAB 01/29/17 Lansoprazole* (Lansoprazole*) 30 Mg Capsule.dr, 30 MG GTB DAILY, CAP 01/29/17 Ipratropium [place]* (Atrovent HFA*) 12.9 Gm Aer.w.adap, 2 PUFF INHALATION Q4H for SHORTNESS OF BREATH, #1 INHALER 01/29/17 Guaifenesin-Codeine Phosphate* (Robitussin* AC) 5 Ml Syrup, 5 ML GTB Q4H Y for COUGH, ML 01/29/17 Folic Acid* (Folic Acid*) 1 Mg Tablet, 1 MG GTB DAILY, TAB 01/29/17 Clonidine Hcl* (Clonidine Hcl*) 0.1 Mg Tab, 0.1 MG GTB Q6, TAB FOR HTN SBP>170 01/29/17 Ascorbic Acid (Vitamin C) 500 Mg Tab, 500 MG G-TUBE DAILY, TAB 01/29/17 Albuterol Sulfate* (Ventolin HFA*) 18 Gm Hfa.aer.ad, 2 PUFF INHALATION Q4H, #1 INHALER 01/29/17 Acetaminophen* (Acetaminophen*) 650 Mg Tablet, 650 MG GTB Q6 Y for PAIN AND OR ELEVATED TEMP, #30 TAB 01/29/17 Protein Supplement (Promod) 946 Ml Liquid, 30 ML GTB BID 01/09/17 Hydrocodone/Acetaminophen (Bristol 5-325 Tablet) 1 Each Tablet, 1 EACH GTB Q4H Y for PAIN LEVEL 4-10/10, TAB 01/09/17 Lorazepam* (Lorazepam*) 1 Mg Tablet, 1 MG GTB Q4H Y for ANXIETY, #30 TAB 01/09/17 Loperamide Hcl* (Loperamide Hcl*) 2 Mg Cap, 2 MG GTB Q6 Y for ANXIETY, CAP 01/09/17 Betamethasone Valerate (Betamethasone Valerate) 15 Gm Oint..gm., 15 GM TP DAILY , #1 TUB END DATE 01/10/17 01/09/17 Discontinued Reported Medications 0.9 % Sodium Chloride (Sodium Chloride) 50 Ml Syringe, 1000 ML IV* Q24H 01/29/17 Ondansetron HCl (Zofran) 4 Mg/5 Ml Solution, 4 MG IV* Q6 Y for NAUSEA 01/29/17 Morphine (Morphine) 2 Mg/1 Ml Disp.syrin, 2 MG IV Q4H Y for PAIN, EA 01/29/17 Loperamide Hcl (IMODIUM LIQUID CUP) 1 Mg/5 Ml Liq, 2 MG GTB Q6 Y for DIARRHEA 01/29/17 L Acidophil/B Lactis/B Longum (FLORAJEN3 CAPSULE) 460 Mg Capsule, 460 MG PO TID , CAP 01/29/17 Ipratropium-Albuterol (Ipratropium-Albuterol) 0.5-3 Mg/3 Ml Ampul.neb, 3 ML INHALATION Q2H, #30 VIAL 01/29/17 Ipratropium [place]* (Atrovent HFA*) 12.9 Gm Aer.w.adap, 2 PUFF INHALATION Q2H, #1 INHALER 01/29/17 Hydrocodone/Acetaminophen (Bristol 5-325 Tablet) 1 Each Tablet, 1 EACH GTB Q4 Y for PAIN, TAB 01/29/17 Diphenhydramine Hcl* (Benadryl*) 50 Mg Cap, 50 MG IV Q6 Y for ITCHING, CAP 01/29/17 Acetaminophen* (Acetaminophen* Susp) 325 Mg/10.15 Ml Solution, 650 MG GTB Q6 Y for PAIN OR TEMP ABOVE 38C, ML 01/29/17 [Multiple Mineral Liq] No Conflict Check, 30 ML GTB DAILY 01/09/17 Allergies Allergies: Coded Allergies: caspofungin (Unverified Allergy, Severe, 03/29/17) rash miconazole (Unverified Allergy, Unknown, TOPICAL MICONAZOLE (OINTMENT), ) lorazepam (Unverified Adverse Reaction, Severe, 03/29/17) agitation, hallucination, MS change (12/2016) PMhx/Soc History of Surgery: Yes Anesthesia Reaction: No Hx Neurological Disorder: No Hx Respiratory Disorders: Yes (pulmonary fibrosis, chronic resp failure) Hx Cardiac Disorders: Yes (chronic diastolic heart failure) Hx Psychiatric Problems: Yes (ETOH) Hx Miscellaneous Medical Probl: Yes (ETOH abuse ) Hx Alcohol Use: Yes (PREVIOUS) Hx Substance Use: Yes (PREVIOUS) Hx Tobacco Use: No Smoking Status: Former smoker FmHx Family History: No coronary disease Physical Exam Vitals Vital Signs Date Time Temp Pulse Resp B/P Pulse Ox O2 Delivery O2 Flow Rate FiO2 05/20/17 14:32 97.7 72 22 108/62 99 Room Air 05/20/17 12:07 72 27 99 40 05/20/17 11:46 96.7 72 20 100 Physical Exam Const: [Well-developed, well-nourished] Head: [Atraumatic, normocephalic] Eyes: [Normal Conjunctiva, PERRLA, EOMI, normal sclera, no nystagmus] ENT: [Normal External Ears, Nose and Mouth, moist mucus membranes.] Neck: [Full range of motion. No meningismus, no lymphadenopathy.] Resp: Clear to auscultation bilaterally, no wheezing, rhonchi, rales Cardio: Regular rate and rhythm, no murmurs, S1 S2 present Abd: Soft, non tender x 4, non distended. Normal bowel sounds, no guarding or rebound, no pulsitile abdominal masses or bruits, Robin in place is a G2 Skin: No petechiae or rashes, no ecchymosis , no maculopapular rash Back: No midline or flank tenderness Ext: No cyanosis, or edema, FROM x 4, normal inspection, neurovascularly intact x 4 Neur: Awake and alert, sensation intact Psych: Normal Mood and Affect Results 24 hrs Current Medications Medications (Trade) Dose Ordered Sig/Dawna Route PRN Reason Start Time Stop Time Status Last Admin Dose Admin Diatrizoate Meglum/ Diatrizoate Sod (Gastrografin 66-10 Solution) 30 ml ONCE ONCE PO 05/20/17 13:30 05/20/17 13:31 DC 05/20/17 13:30 Procedures/MDM Procedure: Feeding tube replacement by me Patient had a 20 [place] G-tube placed by me in aseptic technique. The balloon was filled with approximately 10 cc of normal saline. Patient tolerated the procedure well KUB interpreted by me demonstrates a feeding tube in place with Gastrografin injected. There is dye within the intestinal tract. Nonspecific bowel gas pattern with no obstruction bony structures look adequate Discharge home Departure Diagnosis: Primary Impression: Encounter for feeding tube placement Condition: Stable Patient Instructions: Feeding Tube Replacement Referrals: MATTHEW CALDERON MD (PCP) LOGAN MURPHY DO May 20, 2017 14:58
--- NOTE | 2017-05-20 15:02 | RADRPT ---
PROCEDURE: XR Abdomen. CLINICAL INDICATION: Gastrostomy tube placement TECHNIQUE: AP supine abdomen x-ray. The image was obtained following injection of 20 ml of Gastrog rafin into the gastrostomy tube. COMPARISON: May 20, 2017. 1229 hours. FINDINGS: The gastrostomy tube is in the stomach. Contrast is present in the stomach and duodenum. There is a duodenal diverticulum. The bowel gas pattern is normal with no evidence of obstruction. There are degenerative changes of the spine. IMPRESSION: 1. The gastrostomy tube tip is in the stomach. 2. Duodenal diverticulum. RPTAT: QQ .Nathan Tom MD, MD Date Time Electronically viewed and signed by .Nathan Tom MD, MD on 05/20/2017 15:02 .R/
[2017-05-20 16:34] VITALS: BP 114/67; PULSE 78; RESP 18; TEMP 99
== END 2017-05-20 16:43 | disposition home or self-care (01) ==
LOC: E/R 11:25
DX: Z43.1 Encounter for attention to gastrostomy (principal); Z87.891 Personal history of nicotine dependence
CPT/HCPCS: 74000; 94002

== ENCOUNTER → 2017-06-12 | Outpatient (CLI) | END | disposition home or self-care (01) ==

== ENCOUNTER 2017-07-27 19:14 | Emergency (ER) | END 2017-07-28 02:09 | disposition home or self-care (01) ==

== ENCOUNTER 2017-09-01 01:35 | Inpatient (IN) | END 2017-09-11 21:20 | DRG 326 ==

== ENCOUNTER 2017-10-13 09:14 | Inpatient (IN) | END 2017-10-18 18:48 | DRG 154 ==